=== PATIENT | male | born 1945 | race Caucasian/White ===

== ENCOUNTER 2017-04-12 16:57 | Inpatient (IN) | payer MEDICARE ==
[~2017-04-12] VITALS: Ht 182.9 cm; Wt 87.1 kg
[2017-04-12 17:14] VITALS: BP 109/68; PULSE 71; RESP 16; TEMP 97.9; O2SAT 96
[2017-04-12] MEDS ORDERED: WARF-23 PO (17:25)
--- NOTE | 2017-04-12 17:31 | PD ---
HPI Chief Complaint: Musculoskeletal Complaint Time Seen by Provider: 17:22 Travel History International Travel<30 days: No Contact w/Intl Traveler<30days: No Traveled to known affect area: No History of Present Illness HPI 71-year-old male presents to the emergency department with his daughter for evaluation after he fell hitting his head. His daughter states they were in the bathroom trying to change his undergarments when he slipped and fell hitting his head. He is on anticoagulant, but she is not sure which one and what for. The patient is pleasantly confused and patient's daughter states this is his baseline. He has had no altered mental status since the fall. No vomiting. The patient reports a mild headache without radiation. No neck pain or back pain. No chest pain or abdominal pain. No nausea, vomiting, diarrhea. He has been ambulatory without difficulty since the fall. He has no other complaints at this time. Moderate severity. No exacerbating or alleviating factors. PFSH Past Medical History Hx Anticoagulant Therapy: Yes COPD: Yes Respiratory: Yes (COPD) Influenza Vaccination: Yes Social History Alcohol Use: No Tobacco Use: No Substance Use: No Allergies-Medications (Allergen,Severity, Reaction): Coded Allergies: No Known Allergies (Verified Allergy, Unknown, 04/12/17) Reported Meds & Prescriptions Reported Meds & Active Scripts Active Reported Warfarin 5 Mg Tab 5 Mg PO DAILY Review of Systems Except as stated in HPI: all other systems reviewed are Neg Physical Exam Narrative GENERAL: Well-nourished, well-developed male patient, afebrile. Patient is pleasantly confused. SKIN: Focused skin assessment warm/dry. HEAD: Normocephalic. Atraumatic. ENT: Mucosa pink and moist. No erythema or exudates. No uvular edema. No uvular , palatal, or tonsillar deviation. Airway patent. Nasal turbinates appear normal without nasal blood, purulent drainage or septal hematoma. Bilateral tympanic membranes are clear without erythema or perforation. EYES: No scleral icterus. No injection or drainage. NECK: Supple, trachea midline. No JVD or lymphadenopathy. CARDIOVASCULAR: Regular rate and rhythm without murmurs, gallops, or rubs. RESPIRATORY: Breath sounds equal bilaterally. No accessory muscle use. Lungs sounds are clear to auscultation. GASTROINTESTINAL: Abdomen soft, non-tender, nondistended. MUSCULOSKELETAL: No cyanosis, or edema. BACK: Nontender without obvious deformity. No CVA tenderness. No midline spinal tenderness. Data Data Last Documented VS Vital Signs Date Time Temp Pulse Resp B/P (MAP) Pulse Ox O2 Delivery O2 Flow Rate FiO2 04/12/17 17:14 97.9 71 16 109/68 (82) [address] Brain W/O Iv Contrast(Rout) (04/12/17 ) Ct Cerv Spine W/O Contrast (04/12/17 ) MDM Medical Decision Making Medical Screen Exam Complete: Yes Emergency Medical Condition: Yes Medical Record Reviewed: Yes Differential Diagnosis Closed head injury versus intracranial hemorrhage versus cervical strain versus cervical fracture Narrative Course 71-year-old male presents to the emergency department his daughter for evaluation after he slipped and fell and hit his head. Patient is presently confused, but patient's daughter states that this is his baseline. He has no complaints other than a mild headache. CT of the brain and cervical spine are ordered and pending. community planning technician called and stated the patient had a bleed with a midline shift. The patient transferred to medical bed and Dr. Stone resumed care and disposition of patient. Giovanna Roque Apr 12, 2017 17:31
--- NOTE | 2017-04-12 17:54 | RADRPT ---
EXAM DATE/TIME: 04/12/2017 17:36 [facility] COMPARISON: No previous studies available for comparison. INDICATIONS : Fell in shower and hit head. RADIATION DOSE: 62.55 CTDIvol (mGy) MEDICAL HISTORY : Chronic obstructive pulmonary disease. Anticoagulant therapy. SURGICAL HISTORY : None. ENCOUNTER: Initial ACUITY: 1 day PAIN SCALE: 5/10 LOCATION: cranial TECHNIQUE: Multiple contiguous axial images were obtained of the head. Using automated exposure control and adj ustment of the mA and/or kV according to patient size, radiation dose was kept as low as reasonably a chievable to obtain optimal diagnostic quality images. DICOM format image data is available electro nically for review and comparison. FINDINGS: Bilateral acute subdural hematomas are present and on the left side extends from frontal to post erior parietal region maximum thickness of 1.8 cm and on the right side is mainly in the frontal marlys on maximum thickness of 7 mm. There is also subdural hematoma along the falx anteriorly. Intraparench ymal hemorrhage is present in the left anterior temporal lobe and parts of the frontal lobe. There is significant mass effect subfalcine herniation from left to right by approximately 1 cm. There is sli ght mass effect on the perimesencephalic cisterns, however there is no downward transtentorial hernia tion at this time. No definite fracture is seen for technique. CONCLUSION: Bilateral subdural hematomas in addition to parafalcine subdural hematoma, left front al and temporal lobe intraparenchymal hemorrhages and subfalcine herniation from [id number]. Maria Guadalupe Alvarado MD on April 12, 2017 at 17:48 Board Certified Radiologist. This report was verified electronically.
--- NOTE | 2017-04-12 17:59 | PD ---
Physical Exam Narrative GENERAL: SKIN: Warm and dry. HEAD: Atraumatic. Normocephalic. EYES: Pupils equal and round. No scleral icterus. No injection or drainage. ENT: No nasal bleeding or discharge. Mucous membranes pink and moist. NECK: Trachea midline. No JVD. CARDIOVASCULAR: Regular rate and rhythm. RESPIRATORY: No accessory muscle use. Clear to auscultation. Breath sounds equal bilaterally. GASTROINTESTINAL: Abdomen soft, non-tender, nondistended. Hepatic and splenic margins not palpable. MUSCULOSKELETAL: Extremities without clubbing, cyanosis, or edema. No obvious deformities. NEUROLOGICAL: Awake and alert, PLEASANTLY CONFUSED BUT FOLLOWS COMMANDS WELL.... No obvious cranial nerve deficits. Motor grossly within normal limits. Five out of 5 muscle strength in the arms and legs. Normal speech. PSYCHIATRIC: Appropriate mood and affect; insight and judgment normal. Data Data Last Documented VS Vital Signs Date Time Temp Pulse Resp B/P (MAP) Pulse Ox O2 Delivery O2 Flow Rate FiO2 04/12/17 18:05 59 18 136/69 (91) 98 Room Air 04/12/17 17:[address] Brain W/O Iv Contrast(Rout) (04/12/17 ) Ct Cerv Spine W/O Contrast (04/12/17 ) Complete Blood Count With Diff (04/12/17 18:00) Comprehensive Metabolic Panel (04/12/17 18:00) Prothrombin Time / Inr (Pt) (04/12/17 18:00) Act Partial Throm Time (Ptt) (04/12/17 18:00) Lipase (04/12/17 18:00) Iv Access Insert/Monitor (04/12/17 18:00) Ecg Monitoring (04/12/17 18:00) Oximetry (04/12/17 18:00) ^ Lab Follow Up (04/12/17 18:00) Prothrombin Complex Conc Inj (Kcentra In (04/12/17 19:00) Levetiracetam Inj (Keppra Inj) (04/12/17 18:30) Phytonadione Inj (Vitamin K Inj) (04/12/17 18:30) Labs Laboratory Tests Test 04/12/17 18:00 White Blood Count 5.6 TH/MM3 Red Blood Count 4.60 MIL/MM3 Hemoglobin 13.4 GM/DL Hematocrit 40.2 % Mean Corpuscular Volume 87.4 FL Mean Corpuscular Hemoglobin 29.1 PG Mean Corpuscular Hemoglobin Concent 33.4 % Red Cell Distribution Width 14.0 % Platelet Count 245 TH/MM3 Mean Platelet Volume 7.1 FL Neutrophils (%) (Auto) 77.0 % Lymphocytes (%) (Auto) 13.8 % Monocytes (%) (Auto) 6.4 % Eosinophils (%) (Auto) 2.2 % Basophils (%) (Auto) 0.6 % Neutrophils # (Auto) 4.3 TH/MM3 Lymphocytes # (Auto) 0.8 TH/MM3 Monocytes # (Auto) 0.4 TH/MM3 Eosinophils # (Auto) 0.1 TH/MM3 Basophils # (Auto) 0.0 TH/MM3 CBC Comment DIFF FINAL Differential Comment Prothrombin Time 10.8 SEC Prothromb Time International Ratio 1.1 RATIO Activated Partial Thromboplast Time 26.8 SEC Blood Urea Nitrogen 20 MG/DL Creatinine 1.00 MG/DL Random Glucose 215 MG/DL Total Protein 6.9 GM/DL Albumin 3.6 GM/DL Calcium Level 8.9 MG/DL Alkaline Phosphatase 68 U/L Aspartate Amino Transf (AST/SGOT) 14 U/L Alanine Aminotransferase (ALT/SGPT) 15 U/L Total Bilirubin 0.6 MG/DL Sodium Level 137 MEQ/L Potassium Level 3.9 MEQ/L Chloride Level 101 MEQ/L Carbon Dioxide Level 30.5 MEQ/L Anion Gap 6 MEQ/L Estimat Glomerular Filtration Rate 74 ML/MIN Lipase 161 U/L [facility] Medical Record Reviewed: Yes Supervised Visit with EVER: Yes Differential Diagnosis ICH V SAH V SDH Narrative Course CT SHOWED: : Bilateral subdural hematomas in addition to parafalcine subdural hematoma, left frontal and temporal lobe intraparenchymal hemorrhages and subfalcine herniation from [id number]....PATIENT IS CONFUSED AND UNABLE TO TRUST HIS HISTORY, HE MENTIONED COUMADIN INITIALLY BUT OF 181 NO DEFINITIVE ANSWER FROM FAMILY AT BEDSIDE WHO IS COMMUNICATING WITH FAMILY TO ASSESS IF PT IS ANTICOAGULATED. Critical Care Narrative CRITICAL CARE NOTE: With evaluation of the patient, labs, EKG, receipt of radiologic studies, administration of medications, reevaluation the patient and discussion of the patient with the admitting physicians, the total critical care time was [30] minutes. Time to perform other separately billable procedures was not included in the critical care time. Physician Communication Physician Communication DR SOLARES CALLED AT 1800, OF 1811 NO CALLBACK, CALLED AGAIN...CALL RETURNED AND COMPLETED 1829 WHERE RECC TO TRANSFER TO [facility], TO [facility] DRIVER, ALEISHA SOTELO, AND TO FIND OUT IF ANTICOAGULATED WITH ANYTHING REVERSIBLE....DR SOLARES BELIEVES CT FINDINGS ARE MORE SUBACUTE ON LEFT WHICH IS THE LARGER CLOT, AND RIGHT IS MORE ACUTE.. Diagnosis Primary Impression: SUBDURAL HEMATOMAS (MULTIPLE) Admitting Information Admitting Physician Requests: Admit Ryder Stone MD Apr 12, 2017 17:59
[2017-04-12] MEDS ORDERED: PHYTONADIONE INJ 10 MG in SODIUM CHLORIDE 0.9% INJ 50 ML IV ONE ×2 (18:00→18:30)
[2017-04-12 18:05] VITALS: BP 136/69; PULSE 59; RESP 18; O2SAT 98
--- NOTE | 2017-04-12 18:07 | RADRPT ---
EXAM DATE/TIME: 04/12/2017 17:36 [facility] COMPARISON: No previous studies available for comparison. INDICATIONS : Fell in shower and hit head. RADIATION DOSE: 26.76 CTDIvol (mGy) MEDICAL HISTORY : Chronic obstructive pulmonary disease. Anticoagulant therapy. SURGICAL HISTORY : None. ENCOUNTER: Initial ACUITY: 1 day PAIN SCALE: 5/10 LOCATION: neck TECHNIQUE: Volumetric scanning of the cervical spine was performed. Multiplanar reconstructions in the sagittal, coronal and oblique axial planes were performed. Using automated exposure control and adjustment o f the mA and/or kV according to patient size, radiation dose was kept as low as reasonably achievable to obtain optimal diagnostic quality images. DICOM format image data is available electronically f or review and comparison. FINDINGS: No significant subluxation or soft tissue swelling is seen. No definite fracture is seen for techniqu e. C2-C3: No appreciable compromised to the thecal sac, exiting nerve roots are seen. The neural maude latia are patent bilaterally. No appreciable thecal sac stenosis is seen. C3-C4: No appreciable compromised to the thecal sac, exiting nerve roots are seen. The neural maude latia are patent bilaterally. No appreciable thecal sac stenosis is seen. C4-C5: No appreciable compromised to the thecal sac, exiting nerve roots are seen. The neural maude latia are patent bilaterally. No appreciable thecal sac stenosis is seen. Slight bulging disc and hype rtrophic changes are seen with indentation on the thecal sac and no significant compromise to the the juan sac or the exiting nerve roots. C5-C6: Slight degenerative changes are seen within the disc space and facets. Slight bulging disc and hypertrophic changes are seen with indentation on the thecal sac and no significant compromise to th e thecal sac or the exiting nerve roots. C6-C7: Moderate degenerative changes are seen within the disc space and facets. There is bulging disc and hypertrophic change protruding into the left lateral recess without any significant compromise t o the exiting nerve roots. Slight bulging disc and hypertrophic changes are seen with indentation on the thecal sac and no significant compromise to the thecal sac or the exiting nerve roots. C7-T1: No appreciable compromised to the thecal sac, exiting nerve roots are seen. The neural maude latia are patent bilaterally. No appreciable thecal sac stenosis is seen CONCLUSION: Degenerative spondylosis without any significant compromise to the thecal sac or the exi ting nerve roots. Maria Guadalupe Alvarado MD on April 12, 2017 at 18:01 Board Certified Radiologist. This report was verified electronically.
[2017-04-12 18:11] LABS: AUTOMATED NEUTROPHIL # 4.3 TH/MM3 (1.8-7.7); BASOPHIL % 0.6 % (0.0-2.0); EOSINOPHIL # 0.1 TH/MM3 (0-0.4); EOSINOPHIL % 2.2 % (0.0-4.0); HEMATOCRIT 40.2 % (39.0-51.0); HEMOGLOBIN 13.4 GM/DL (13.0-17.0); LYMPH % 13.8 % (9.0-44.0); LYMPHOCYTE # 0.8 TH/MM3 (1.0-4.8); MEAN CELL VOLUME 87.4 FL (80.0-100.0); MEAN CORPUSCULAR HEMOGLOBIN 29.1 PG (27.0-34.0); MEAN CORPUSCULAR HGB CONC 33.4 % (32.0-36.0); MEAN PLATELET VOLUME 7.1 FL (7.0-11.0); MONO % 6.4 % (0.0-8.0); MONOCYTE # 0.4 TH/MM3 (0-0.9); PLATELET COUNT 245 TH/MM3 (150-450); WHITE BLOOD COUNT 5.6 TH/MM3 (4.0-11.0)
[2017-04-12] MEDS ORDERED: ASPI-183 PO (18:15)
[2017-04-12 18:19] LABS: CHLORIDE 101 MEQ/L (98-107); SODIUM (NA) 137 MEQ/L (136-145)
[2017-04-12 18:22] LABS: CALCIUM 8.9 MG/DL (8.5-10.1)
[2017-04-12 18:23] LABS: ALBUMIN 3.6 GM/DL (3.4-5.0); BICARBONATE 30.5 MEQ/L (21.0-32.0); BLOOD UREA NITROGEN 20 MG/DL (7-18); GLUCOSE,RANDOM 215 MG/DL (74-106); LIPASE 161 U/L (73-393)
[2017-04-12 18:24] LABS: INTERNATIONAL NORMALIZED RATIO 1.1 RATIO; PROTHROMBIN TIME - PATIENT 10.8 SEC (9.8-11.6)
[2017-04-12 18:26] LABS: ALT (GPT) 15 U/L (12-78); AST (GOT) 14 U/L (15-37); GLOMERULAR FILTRATION RATE 74 ML/MIN (>89)
[2017-04-12 18:27] LABS: TOTAL BILIRUBIN ADULT 0.6 MG/DL (0.2-1.0); TOTAL PROTEIN 6.9 GM/DL (6.4-8.2)
[2017-04-12 18:28] LABS: ALKALINE PHOSPHATASE 68 U/L (45-117)
[2017-04-12] MEDS ORDERED: NS + KCL 20 MEQ INJ 1,000 ML IV SCH (18:30)
[2017-04-12] MEDS ORDERED: ONDANSETRON HCL 4 MG/2 ML VIAL IV PUSH PRN ×2 (18:30→20:30)
[2017-04-12] MEDS ORDERED: levETIRAcetam INJ 500 MG in SODIUM CHLORIDE 0.9% INJ 100 ML IV ONE (18:30)
[2017-04-12] MEDS ORDERED: PROTHROMBIN COMPLEX CONC INJ 2,000 UNITS in SYRINGE/BAG 1 EA IV ONE (19:00)
[2017-04-12] MEDS ORDERED: DONE10TA7 PO (19:27)
[2017-04-12] MEDS ORDERED: ZOLO100T PO (19:27)
[2017-04-12] MEDS ORDERED: PERSANTINE PO (19:29)
[2017-04-12] MEDS ORDERED: CODE30TA PO (19:29)
[2017-04-12] MEDS ORDERED: TROS60CA2 PO (19:29)
[2017-04-12] MEDS ORDERED: VENTAER INH (19:29)
[2017-04-12] MEDS ORDERED: PRAV40TA2 PO (19:29)
[2017-04-12] MEDS ORDERED: METF500 PO (19:31)
[2017-04-12] MEDS ORDERED: VALS1TAB64 PO (19:31)
[2017-04-12] MEDS ORDERED: TRAZ100T10 PO (19:31)
[2017-04-12] MEDS ORDERED: GABA400C5 PO (19:31)
[2017-04-12 19:32] VITALS: BP 125/70; PULSE 61; RESP 18; O2SAT 98
[2017-04-12 20:00] VITALS: BP 105/84; PULSE 58; PULSE 64; RESP 17; TEMP 97.9; O2SAT 95
[2017-04-12] MEDS ORDERED: CHLORHEXIDINE GLUCONATE 2 % 1 PACK (2 CLOTHS) TOP PRN (20:30)
[2017-04-12] MEDS ORDERED: SODIUM CHLORIDE 0.9% FLUSH 10 ML FLUSH IV FLUSH PRN (20:30)
[2017-04-12] MEDS ORDERED: BISACODYL 10 MG SUPP RECTAL PRN (20:30)
[2017-04-12] MEDS ORDERED: MISCELLANEOUS NURSING INFORMATION XX SCH (20:30)
[2017-04-12] MEDS ORDERED: SENNOSIDES 8.6 MG TAB PO PRN (20:30)
[2017-04-12] MEDS ORDERED: LACTULOSE SYRUP 20 GM/30 ML CUP PO PRN (20:30)
[2017-04-12] MEDS ORDERED: RESP: ALBUTEROL 2.5 MG/IPRATROPIUM 0.5 MG NEB (PRN) INH (20:30)
[2017-04-12] MEDS ORDERED: MAGNESIUM HYDROXIDE SUSP 30 ML CUP PO PRN (20:30)
[2017-04-12] MEDS: DOCUSATE SODIUM 100 MG CAP PO SCH (20:43)
[2017-04-12] MEDS: levETIRAcetam 500 MG TAB PO SCH (20:43)
[2017-04-12] MEDS: DONEPEZIL HCL 5 MG TAB PO SCH (20:43)
[2017-04-12] MEDS: FAMOTIDINE 20 MG TAB PO SCH (20:43)
[2017-04-12] MEDS: traZODone HCL 100 MG TAB PO SCH (20:43)
--- NOTE | 2017-04-12 20:48 | HHI.HP ---
HPI Service Critical Care Medicine Primary Care Physician Non-Staff Admission Diagnosis SUBDURAL HEMATOMAS (MULTIPLE) Diagnosis: Travel History International Travel<30 Days: No Contact w/Intl Traveler <30 Da: No Traveled to Known Affected Are: No History of Present Illness 71-year-old male presents for evaluation after he fell hitting his head. Per family report they were in the bathroom trying to change his undergarments when he slipped and fell hitting his head. He is not on anticoagulant. The patient is pleasantly confused and patient's daughter states this is his baseline. He has had no altered mental status since the fall. No vomiting. The patient reports a mild headache without radiation. No neck pain or back pain. He has been ambulatory without difficulty since the fall. The CT head performed in the emergency department shows bilateral subdural hematomas in addition to parafalcine subdural hematoma, left frontal and temporal lobe intraparenchymal hemorrhages and subfalcine herniation from [id number]. Review of Systems ROS Unable to obtain patient is baseline confused Past Family Social History Allergies: Coded Allergies: No Known Allergies (Verified Allergy, Unknown, 04/12/17) Past Medical History COPD Past Surgical History Unable to obtain Reported Medications Reported Meds & Active Scripts Active Reported Gabapentin 400 Mg Cap 400 Cap PO TID Glucophage (Metformin HCl) 500 Mg Tab 500 Mg PO DAILY With a meal Valsartan 80 Mg Tab 80 Mg PO DAILY Trazodone (Trazodone HCl) 100 Mg Tablet 100 Mg PO HS Trospium ER 60 Mg Cap 20 Mg PO BID Pravastatin 40 Mg Tab 40 Mg PO DAILY [persantine] 25 Mg PO DAILY Ventolin Hfa 18 GM Inh (Albuterol Sulfate) 90 Mcg/Act Aer 2 Puff INH Q4-6H PRN Codeine Sulfate 30 Mg Tab 30 Mg PO Q6H PRN Zoloft (Sertraline HCl) 100 Mg Tab 150 Mg PO DAILY Donepezil 10 Mg Tab 10 Mg PO HS Active Ordered Medications Current Medications Medications (Trade) Dose Ordered Sig/Ashli Route PRN Reason Start Time Stop Time Status Last Admin Dose Admin Potassium Chloride/Sodium Chloride 1,000 ml @ 84 mls/hr [id number] IV 04/12/17 18:30 Docusate Sodium (Colace) 100 mg BID PO 04/12/17 21:00 Ondansetron HCl (Zofran Inj) 4 mg Q6H PRN IV PUSH NAUSEA OR VOMITING 04/12/17 18:30 Famotidine (Pepcid) 20 mg BID PO 04/12/17 21:00 Levetriacetam (Keppra) 500 mg Q12HR PO 04/12/17 21:00 Donepezil HCl (Aricept) 10 mg HS PO 04/12/17 21:00 Gabapentin (Neurontin) 400 mg TID PO 04/13/17 09:00 Pravastatin Sodium (Pravachol) 40 mg DAILY PO 04/13/17 09:00 Sertraline HCl (Zoloft) 150 mg DAILY PO 04/13/17 09:00 Valsartan (Diovan) 80 mg DAILY PO 04/13/17 09:00 Non-Formulary Medication 100 mg HS PO 04/12/17 21:00 UNV Non-Formulary Medication 20 mg BID PO 04/12/17 21:00 UNV Family History Unobtainable Social History Unobtainable Physical Exam Vital Signs Vital Signs Date Time Temp Pulse Resp B/P (MAP) Pulse Ox O2 Delivery O2 Flow Rate FiO2 04/12/17 19:36 04/12/17 19:32 61 18 125/70 (88) 98 04/12/17 18:05 59 18 136/69 (91) 98 Room Air 04/12/17 17:14 97.9 71 16 109/68 (82) 96 Physical Exam GENERAL: Elderly gentleman pleasantly confused awake and alert SKIN: Warm and dry. HEAD: Atraumatic. Normocephalic. EYES: Pupils equal and round. No scleral icterus. No injection or drainage. ENT: No nasal bleeding or discharge. Mucous membranes pink and moist. NECK: Trachea midline. No JVD. CARDIOVASCULAR: Regular rate and rhythm. RESPIRATORY: No accessory muscle use. Clear to auscultation. Breath sounds equal bilaterally. GASTROINTESTINAL: Abdomen soft, non-tender, nondistended. Hepatic and splenic margins not palpable. MUSCULOSKELETAL: Extremities without clubbing, cyanosis, or edema. No obvious deformities. NEUROLOGICAL: Awake and alert, PLEASANTLY CONFUSED BUT FOLLOWS COMMANDS WELL.... No obvious cranial nerve deficits. Motor grossly within normal limits. Five out of 5 muscle strength in the arms and legs. Normal speech. Laboratory Laboratory Tests Test 04/12/17 18:00 White Blood Count 5.6 Red Blood Count 4.60 Hemoglobin 13.4 Hematocrit 40.2 Mean Corpuscular Volume 87.4 Mean Corpuscular Hemoglobin 29.1 Mean Corpuscular Hemoglobin Concent 33.4 Red Cell Distribution Width 14.0 Platelet Count 245 Mean Platelet Volume 7.1 Neutrophils (%) (Auto) 77.0 Lymphocytes (%) (Auto) 13.8 Monocytes (%) (Auto) 6.4 Eosinophils (%) (Auto) 2.2 Basophils (%) (Auto) 0.6 Neutrophils # (Auto) 4.3 Lymphocytes # (Auto) 0.8 Monocytes # (Auto) 0.4 Eosinophils # (Auto) 0.1 Basophils # (Auto) 0.0 CBC Comment DIFF FINAL Differential Comment Prothrombin Time 10.8 Prothromb Time International Ratio 1.1 Activated Partial Thromboplast Time 26.8 Blood Urea Nitrogen 20 Creatinine 1.00 Random Glucose 215 Total Protein 6.9 Albumin 3.6 Calcium Level 8.9 Alkaline Phosphatase 68 Aspartate Amino Transf (AST/SGOT) 14 Alanine Aminotransferase (ALT/SGPT) 15 Total Bilirubin 0.6 Sodium Level 137 Potassium Level 3.9 Chloride Level 101 Carbon Dioxide Level 30.5 Anion Gap 6 Estimat Glomerular Filtration Rate 74 Lipase 161 Result Diagram: 04/12/17 1800 04/12/17 1800 Imaging Last [address] 04/12/17 0000 Signed Impressions: Service Date/Time: Wednesday, April 12, 2017 17:36 - CONCLUSION: Bilateral subdural hematomas in addition to parafalcine subdural hematoma, left frontal and temporal lobe intraparenchymal hemorrhages and subfalcine herniation from [id number]. Maria Guadalupe Alvarado MD Cervical Spine CT 04/12/17 0000 Signed Impressions: Service Date/Time: Wednesday, April 12, 2017 17:36 - CONCLUSION: Degenerative spondylosis without any significant compromise to the thecal sac or the exiting nerve roots. Maria Guadalupe Alvarado MD Septic Shock Reassessment Septic shock perfusion: reassessment completed Caprini VTE Risk Assessment Caprini VTE Risk Assessment: Mod/High Risk (score >= 2) VTE Pharm Contraindication: Hemorrhage Caprini Risk Assessment Model Point Value = 1 Point Value = 2 Point Value = 3 Point Value = 5 Age 41-60 Minor surgery BMI > 25 kg/m2 Swollen legs Varicose veins or History of unexplained or recurrent spontaneous Oral contraceptives or hormone replacement Sepsis (< 1 month) Serious lung disease, including pneumonia (< 1 month) Abnormal pulmonary function Acute myocardial infarction Congestive heart failure (< 1 month) History of inflammatory bowel disease Medical patient at bed rest Age 61-74 Arthroscopic surgery Major open surgery (> 45 min) Laparoscopic surgery (> 45 min) Malignancy Confined to bed (> 72 hours) Immobilizing plaster cast Central venous access Age >= 75 History of VTE Family history of VTE Factor V Leiden Prothrombin [id number] Lupus anticoagulant Anticardiolipin antibodies Elevated serum homocysteine Heparin-induced thrombocytopenia Other congenital or acquired thrombophilia Stroke (< 1 month) Elective arthroplasty Hip, pelvis, or leg fracture Acute spinal cord injury (< 1 month) Prophylaxis Regimen Total Risk Factor Score Risk Level Prophylaxis Regimen 0-1 Low Early ambulation 2 Moderate Order ONE of the following: *Sequential Compression Device (SCD) *Heparin 5000 units SQ BID 3-4 Higher Order ONE of the following medications: *Heparin 5000 units SQ TID *Enoxaparin/Lovenox 40 mg SQ daily (WT < 150 kg, CrCl > 30 mL/min) *Enoxaparin/Lovenox 30 mg SQ daily (WT < 150 kg, CrCl > 10-29 mL/min) *Enoxaparin/Lovenox 30 mg SQ BID (WT < 150 kg, CrCl > 30 mL/min) AND/OR *Sequential Compression Device (SCD) 5 or more Highest Order ONE of the following medications: *Heparin 5000 units SQ TID (Preferred with Epidurals) *Enoxaparin/Lovenox 40 mg SQ daily (WT < 150 kg, CrCl > 30 mL/min) *Enoxaparin/Lovenox 30 mg SQ daily (WT < 150 kg, CrCl > 10-29 mL/min) *Enoxaparin/Lovenox 30 mg SQ BID (WT < 150 kg, CrCl > 30 mL/min) AND *Sequential Compression Device (SCD) Assessment and Plan Assessment and Plan Subdural hematoma - Neurosurgical consultation - Admit to ICU - Neuro checks per unit protocol - Repeat CT head a.m. - Seizure prophylaxis with Keppra - Further management per neurosurgeon COPD - No exacerbation - No steroids indicated - DuoNeb scheduled and when necessary Dementia - Continue Aricept Hypertension - Valsartan 80 Mg Tab 80 Mg PO DAILY Psychosis - Trazodone - Zoloft Diabetes mellitus - Hold metformin while in the ICU - Insulin sliding scale DVT GI prophylaxis - Teds SCDs - No pharmacological DVT prophylaxis due to subdural hematoma - Pepcid Critical Care: The total critical care time was 35 minutes. Time to perform other separately billable procedures was not included in the critical care time. Corby Romo MD Apr 12, 2017 8:48 pm
[2017-04-12] MEDS: SODIUM CHLOR 0.9% 1000 ML INJ 1,000 ML IV SCH (21:00)
[2017-04-12] MEDS: FAMOTIDINE 20 MG/2 ML VIAL IV PUSH SCH (21:00)
[2017-04-12] MEDS: DOCUSATE SODIUM 50 MG/SENNA 8.6 MG TAB PO SCH (21:00)
[2017-04-12] MEDS: SODIUM CHLORIDE 0.9% FLUSH 10 ML FLUSH IV FLUSH SCH (21:00)
[2017-04-12] MEDS: RESP: ALBUTEROL 2.5 MG/IPRATROPIUM 0.5 MG NEB (SCH) INH (21:40)
[2017-04-12 21:43] VITALS: O2SAT 95
[2017-04-12] MEDS ORDERED: DEXTROSE 50% IN WATER 50 ML VIAL(D50) IV PUSH PRN (22:00)
[2017-04-12] MEDS ORDERED: GLUCAGON 1 MG/ML VIAL OTHER PRN (22:00)
--- NOTE | 2017-04-12 22:36 | PD.CONS ---
[facility] Service Neurosurgery Consult Requested By Dr. Romo Reason for Consult Bilateral subdural hematoma Primary Care Physician Non-Staff History of Present Illness Mr. Hope is a 71-year-old male who presented to the emergency room today after he fell at home in the presence of his daughter. She states that he lost his balance while trying to put some close on, and fell and struck his head. There was no loss of consciousness. No seizure activity or nausea or emesis reported. The patient has baseline dementia and confusion, but no definite overall change in his mentation after the fall earlier today, according to his daughter, who he lives with. He presently has no complaint of headache. He does have some chronic neck and back pain. Review of Systems Review of systems cannot be accurately obtained from the patient. According to his daughter, he has had some increased gait unsteadiness over the past few weeks. Also a general worsening of his dementia over the past few months. He has COPD and occasionally has shortness of breath. Past Family Social History Allergies: Coded Allergies: No Known Allergies (Verified Allergy, Unknown, 04/12/17) Past Medical History Diabetes Cardiac murmur COPD Dementia Chronic pain Depression Past Surgical History No major surgeries according to his daughter Reported Medications Reported Meds & Active Scripts Active Reported Gabapentin 400 Mg Cap 400 Cap PO TID Glucophage (Metformin HCl) 500 Mg Tab 500 Mg PO DAILY With a meal Valsartan 80 Mg Tab 80 Mg PO DAILY Trazodone (Trazodone HCl) 100 Mg Tablet 100 Mg PO HS Trospium ER 60 Mg Cap 20 Mg PO BID Pravastatin 40 Mg Tab 40 Mg PO DAILY [persantine] 25 Mg PO DAILY Ventolin Hfa 18 GM Inh (Albuterol Sulfate) 90 Mcg/Act Aer 2 Puff INH Q4-6H PRN Codeine Sulfate 30 Mg Tab 30 Mg PO Q6H PRN Zoloft (Sertraline HCl) 100 Mg Tab 150 Mg PO DAILY Donepezil 10 Mg Tab 10 Mg PO HS Family History Positive for cancer in his father and Alzheimer's in his mother. Social History He stopped smoking cigarettes approximately 25 years ago. No alcohol use He lives with his daughter Physical Exam Vital Signs Vital Signs Date Time Temp Pulse Resp B/P (MAP) Pulse Ox O2 Delivery O2 Flow Rate FiO2 04/12/17 21:43 95 21 04/12/17 19:36 04/12/17 19:32 61 18 125/70 (88) 98 04/12/17 18:05 59 18 136/69 (91) 98 Room Air 04/12/17 17:14 97.9 71 16 109/68 (82) 96 Physical Exam GENERAL: Somewhat thin elderly gentleman in no apparent distress. SKIN: Scattered abrasions and contusions over the upper greater than lower extremities. HEAD: Atraumatic. Normocephalic. No temporal or scalp tenderness. EYES: Sclerae are clear and nonicteric ENT: No facial edema or ecchymosis. No periorbital edema. No CSF otorrhea or rhinorrhea. No palpable facial fracture or deformity. NECK: Trachea midline. Mild cervical spine tenderness. Good cervical range of motion without significant pain CARDIOVASCULAR: Regular rate and rhythm. 3/6 systolic murmur. RESPIRATORY: Mild coarse upper airway sounds. No wheezing. GASTROINTESTINAL: Abdomen soft, non-tender, nondistended. No hepato-splenomegaly , or palpable masses. No guarding. MUSCULOSKELETAL: Extremities without cyanosis, or edema. No joint tenderness, or edema noted. No calf tenderness. Dorsalis pedis pulses 2+ bilateral NEUROLOGICAL: Moderate lethargy Cannot tell me the month or where he is Speech is slow. We will say only 1 or 2 words in response to some questions Follow simple commands intermittent when stimulated Answers only a few questions with 1 or 2 words Diminished judgment and insight Recent and remote memory are difficult to accurately assess due to his decreased mental status No evidence of anxiety or depression Pupils are equal and reactive to accommodation. Extra-ocular movements, visual dutton to confrontation, facial sensorimotor, tongue, palate, sternocleidomastoid testing, hearing to finger rub testing, and bilateral shoulder shrug are all intact. Sensation is intact to light touch in all extremities Strength normal major flexion and extension groups all extremities except for possible mild weakness in the left lower extremity. He will hold his right leg off the bed for a few seconds, but will not completely lift his left leg off the bed. Elizabeth's absent bilaterally No ankle clonus Plantar responses absent bilateral Fine motor movements intact upper extremities Laboratory Laboratory Tests Test 04/12/17 18:00 04/12/17 20:16 04/12/17 20:51 White Blood Count 5.6 Red Blood Count 4.60 Hemoglobin 13.4 Hematocrit 40.2 Mean Corpuscular Volume 87.4 Mean Corpuscular Hemoglobin 29.1 Mean Corpuscular Hemoglobin Concent 33.4 Red Cell Distribution Width 14.0 Platelet Count 245 Mean Platelet Volume 7.1 Neutrophils (%) (Auto) 77.0 Lymphocytes (%) (Auto) 13.8 Monocytes (%) (Auto) 6.4 Eosinophils (%) (Auto) 2.2 Basophils (%) (Auto) 0.6 Neutrophils # (Auto) 4.3 Lymphocytes # (Auto) 0.8 Monocytes # (Auto) 0.4 Eosinophils # (Auto) 0.1 Basophils # (Auto) 0.0 CBC Comment DIFF FINAL Differential Comment Prothrombin Time 10.8 Prothromb Time International Ratio 1.1 Activated Partial Thromboplast Time 26.8 Blood Urea Nitrogen 20 Creatinine 1.00 Random Glucose 215 Total Protein 6.9 Albumin 3.6 Calcium Level 8.9 Alkaline Phosphatase 68 Aspartate Amino Transf (AST/SGOT) 14 Alanine Aminotransferase (ALT/SGPT) 15 Total Bilirubin 0.6 Sodium Level 137 Potassium Level 3.9 Chloride Level 101 Carbon Dioxide Level 30.5 Anion Gap 6 Estimat Glomerular Filtration Rate 74 Lipase 161 Troponin I LESS THAN 0.02 Result Diagram: 04/12/17 1800 04/12/17 1800 Imaging 04/12/2017 CT scan head and cervical spine images reviewed by the undersigned. There appears to be relatively focal acute right frontal subdural hematoma without significant mass effect. There appears to be subacute on chronic left hemisphere subdural hematoma with partial effacement of the left lateral ventricle and approximately 10 mm [id number] midline shift. No definite parenchymal hemorrhage noted. No skull fracture or pneumocephalus noted. Head CT 04/12/17 0000 Signed Impressions: Service Date/Time: Wednesday, April 12, 2017 17:36 - CONCLUSION: Bilateral subdural hematomas in addition to parafalcine subdural hematoma, left frontal and temporal lobe intraparenchymal hemorrhages and subfalcine herniation from [id number]. Maria Guadalupe Alvarado MD Cervical Spine CT 04/12/17 0000 Signed Impressions: Service Date/Time: Wednesday, April 12, 2017 17:36 - CONCLUSION: Degenerative spondylosis without any significant compromise to the thecal sac or the exiting nerve roots. Maria Guadalupe Alvarado MD Assessment and Plan Assessment and Plan Impression: 1. Acute focal right frontal and larger more diffuse subacute on chronic left hemisphere subdural hematomas. 2. Diabetes 3. COPD 4. Cardiac murmur 5. Dementia 6. History of depression 7. Chronic pain Recommendations: 1. CT scan findings were discussed at length with the patient's 2 daughters on the telephone this evening. Since he has been on aspirin, risk of recurrent postoperative hemorrhage is increased. He will need surgical evacuation of the left hemisphere subdural hematoma. A follow-up CT scan will be obtained in the morning to make certain that there is not early expansion of the right frontal subdural hematoma. He will proceed with surgical intervention depending on follow-up CT scan and his clinical course. If he is neurologically stable, it may be preferable to delay the surgery to diminish the effects of aspirin on postoperative bleeding. 2. Metformin held at present. On insulin sliding scale 3. Continuing respiratory treatments. Ventimask. 4. Need for additional preoperative cardiac evaluation deferred to cigar packer. 5. Dementia-continue Aricept. 6. Continuing his present antidepressant medication 7. Will cautiously continue pain medications as needed with attention to impact on his overall mental status. Sylvester Odom MD Apr 12, 2017 22:35
[2017-04-13] VITALS (14 sets, daily range): BP systolic 108–127; BP diastolic 52–100; PULSE 55–82; RESP 12–22; TEMP 97.7–98.9; O2SAT 95–100
[2017-04-13 02:05] LABS: AUTOMATED NEUTROPHIL # 5.2 TH/MM3 (1.8-7.7); BASOPHIL % 0.5 % (0.0-2.0); EOSINOPHIL # 0.1 TH/MM3 (0-0.4); EOSINOPHIL % 1.9 % (0.0-4.0); HEMATOCRIT 39.1 % (39.0-51.0); HEMOGLOBIN 13.4 GM/DL (13.0-17.0); LYMPH % 15.8 % (9.0-44.0); LYMPHOCYTE # 1.1 TH/MM3 (1.0-4.8); MEAN CELL VOLUME 88.1 FL (80.0-100.0); MEAN CORPUSCULAR HEMOGLOBIN 30.3 PG (27.0-34.0); MEAN CORPUSCULAR HGB CONC 34.4 % (32.0-36.0); MEAN PLATELET VOLUME 7.5 FL (7.0-11.0); MONO % 9.1 % (0.0-8.0); MONOCYTE # 0.6 TH/MM3 (0-0.9); NEUT % 72.7 % (16.0-70.0); PLATELET COUNT 219 TH/MM3 (150-450); RED BLOOD COUNT 4.44 MIL/MM3 (4.50-5.90); RED CELL DISTRIBUTION WIDTH 14.8 % (11.6-17.2); WHITE BLOOD COUNT 7.1 TH/MM3 (4.0-11.0)
[2017-04-13 02:13] LABS: INTERNATIONAL NORMALIZED RATIO 1.1 RATIO; PROTHROMBIN TIME - PATIENT 11.1 SEC (9.8-11.6)
[2017-04-13 02:18] LABS: ALBUMIN 3.5 GM/DL (3.4-5.0); ALT (GPT) 17 U/L (12-78); AST (GOT) 14 U/L (15-37); BICARBONATE 28.5 MEQ/L (21.0-32.0); BLOOD UREA NITROGEN 18 MG/DL (7-18); CALCIUM 8.7 MG/DL (8.5-10.1); CHLORIDE 108 MEQ/L (98-107); CREATININE 0.86 MG/DL (0.60-1.30); GLOMERULAR FILTRATION RATE 88 ML/MIN (>89); GLUCOSE,RANDOM 118 MG/DL (74-106); MAGNESIUM 1.8 MG/DL (1.5-2.5); PHOSPHORUS 3.8 MG/DL (2.5-4.9); SODIUM (NA) 142 MEQ/L (136-145)
[2017-04-13 02:22] LABS: ALKALINE PHOSPHATASE 54 U/L (45-117); TOTAL BILIRUBIN ADULT 0.5 MG/DL (0.2-1.0); TOTAL PROTEIN 6.6 GM/DL (6.4-8.2); TROPONIN I 0.02 NG/ML (0.02-0.05)
[2017-04-13] MEDS: RESP: ALBUTEROL 2.5 MG/IPRATROPIUM 0.5 MG NEB (SCH) INH ×4 (03:28→19:37)
[2017-04-13] MEDS: CHLORHEXIDINE GLUCONATE 2 % 1 PACK (2 CLOTHS) TOP SCH (04:00)
[2017-04-13] MEDS: INSULIN NovoLIN REGULAR SUPPLEMENTAL SCALE SQ SCH ×4 (08:00→21:00)
[2017-04-13] MEDS: SODIUM CHLOR 0.9% 1000 ML INJ 1,000 ML IV SCH ×2 (08:55→20:19)
[2017-04-13] MEDS: TOLTERODINE TARTRATE 4 MG CAP LA PO SCH (08:57)
[2017-04-13] MEDS: levETIRAcetam 500 MG TAB PO SCH ×2 (08:57→20:18)
[2017-04-13] MEDS: PRAVASTATIN SOD 40 MG TAB PO SCH (08:57)
[2017-04-13] MEDS: DOCUSATE SODIUM 50 MG/SENNA 8.6 MG TAB PO SCH ×2 (08:57→20:18)
[2017-04-13] MEDS: VALSARTAN 80 MG TAB PO SCH (08:57)
[2017-04-13] MEDS: SERTRALINE HCL 50 MG TAB PO SCH (08:57)
[2017-04-13] MEDS: GABAPENTIN 400 MG CAP PO SCH ×3 (08:57→18:00)
[2017-04-13] MEDS: FAMOTIDINE 20 MG/2 ML VIAL IV PUSH SCH ×2 (08:57→20:18)
[2017-04-13] MEDS: FAMOTIDINE 20 MG TAB PO SCH ×2 (08:58→20:18)
[2017-04-13] MEDS: DOCUSATE SODIUM 100 MG CAP PO SCH ×2 (08:58→20:18)
[2017-04-13] MEDS: SODIUM CHLORIDE 0.9% FLUSH 10 ML FLUSH IV FLUSH SCH ×2 (08:58→20:19)
--- NOTE | 2017-04-13 10:24 | RADRPT ---
EXAM DATE/TIME: 04/13/2017 09:59 [place] COMPARISON: CT BRAIN W/O CONTRAST, April 12, 2017, 17:36. INDICATIONS : Subdural hematoma. RADIATION DOSE: 41.91 CTDIvol (mGy) MEDICAL HISTORY : subdural hematoma SURGICAL HISTORY : None. ENCOUNTER: Subsequent ACUITY: 2 days PAIN SCALE: 0/10 LOCATION: cranial TECHNIQUE: Multiple contiguous axial images were obtained of the head. Using automated exposure control and adj ustment of the mA and/or kV according to patient size, radiation dose was kept as low as reasonably a chievable to obtain optimal diagnostic quality images. DICOM format image data is available electro nically for review and comparison. FINDINGS: CEREBRUM: There is a large left subdural hematoma seen over the left convexity measuring up to 2.2 cm in thickn ess. There is 1.2 cm of left to right midline shift seen at the level of the body the ventricles. The re is compression of the left lateral ventricle. The basal cisterns are narrowed but still open. Ther e is a smaller right frontal subdural hematoma measuring 6 mm in thickness. There is some hemorrhage within the anterior interhemispheric fissure consistent with subdural hemorrhage extending into this region. The anterior falx measures up to 4 mm. POSTERIOR FOSSA: The cerebellum and brainstem are intact. The 4th ventricle is midline. The cerebellopontine angle i s unremarkable. EXTRACRANIAL: The visualized portion of the orbits is intact. SKULL: The calvaria is intact. No evidence of skull fracture. CONCLUSION: 1. Large left subdural hematoma which is unchanged from the prior exam. There continues to be 1.2 cm of left to right midline shift. 2. Smaller right frontal subdural hematoma measuring 6 mm. Juan Carlos Olivarez MD on April 13, 2017 at 10:11 Board Certified Radiologist. This report was verified electronically.
[2017-04-13] MEDS: MORPHINE SULFATE 2 MG/ML INJ IV PRN (12:14)
--- NOTE | 2017-04-13 13:09 | HHI.NSPN ---
History Chief Complaint: intubated and sedated Interval History The patient was examined in the presence of the family today and a more detailed history has been obtained. They indicate chronic progressive dementia to the point that the patient has had to move in with his daughter earlier this year. He cannot care for himself. He is usually quite confused, conversing with only a few words or short sentences and unable to stay on task with conversations. He is usually very active, fidgeting constantly. They state that his mental status today is not significantly changed from his overall baseline. He did go to the emergency room a couple of weeks ago at [facility] due to some pressure sensation or frontal headaches and was diagnosed with sinus congestion. A CT scan of the head was not obtained. He has had no definite falls over the past few weeks up until yesterday. Exam Results Vital Signs Date Time Temp Pulse Resp B/P (MAP) Pulse Ox O2 Delivery O2 Flow Rate FiO2 04/13/17 10:00 68 04/13/17 08:52 99 21 04/13/17 08:00 98.7 15 127/100 (109) 04/13/17 07:00 Room Air Intake and Output 04/13/17 04/13/17 04/14/17 08:00 16:00 00:00 Intake Total 1000 ml Output Total 450 ml Balance -450 ml 1000 ml Physical Examination Gen.: Sitting up in bed. No apparent distress Respirations: Clear to auscultation Cardiac: 3/6 systolic murmur. Regular rhythm Abdomen: Soft, nontender Extremities: No significant edema Neurologic: Awake and alert. A little agitated, fidgeting constantly with his tubes in bed. Follows a few simple commands with difficulty. Does not focus or follow well with his eyes. He will only briefly attend to a task and has to constantly be redirected. His speech is slow, mildly dysarthric. Significant tangential thought processes. Extraocular movements and visual dutton to confrontation intact Sensation intact light touch all extremities Strength normal major flexion-extension groups all extremities Lab, Micro, Other Results 04/13/2017 CT scan head images reviewed. Stable small acute right frontal and large left hemisphere subacute on chronic subdural hematoma with stable approximately 11-12 mm midline shift. Head CT 04/13/17 0800 Signed Impressions: Service Date/Time: Thursday, April 13, 2017 09:59 - CONCLUSION: 1. Large left subdural hematoma which is unchanged from the prior exam. There continues to be 1.2 cm of left to right midline shift. 2. Smaller right frontal subdural hematoma measuring 6 mm. Juan Carlos Olivarez MD Laboratory Tests Test 04/12/17 18:00 04/12/17 20:16 04/12/17 20:51 04/13/17 01:43 White Blood Count 5.6 TH/MM3 7.1 TH/MM3 Red Blood Count 4.60 MIL/MM3 4.44 MIL/MM3 Hemoglobin 13.4 GM/DL 13.4 GM/DL Hematocrit 40.2 % 39.1 % Mean Corpuscular Volume 87.4 FL 88.1 FL Mean Corpuscular Hemoglobin 29.1 PG 30.3 PG Mean Corpuscular Hemoglobin Concent 33.4 % 34.4 % Red Cell Distribution Width 14.0 % 14.8 % Platelet Count 245 TH/MM3 219 TH/MM3 Mean Platelet Volume 7.1 FL 7.5 FL Neutrophils (%) (Auto) 77.0 % 72.7 % Lymphocytes (%) (Auto) 13.8 % 15.8 % Monocytes (%) (Auto) 6.4 % 9.1 % Eosinophils (%) (Auto) 2.2 % 1.9 % Basophils (%) (Auto) 0.6 % 0.5 % Neutrophils # (Auto) 4.3 TH/MM3 5.2 TH/MM3 Lymphocytes # (Auto) 0.8 TH/MM3 1.1 TH/MM3 Monocytes # (Auto) 0.4 TH/MM3 0.6 TH/MM3 Eosinophils # (Auto) 0.1 TH/MM3 0.1 TH/MM3 Basophils # (Auto) 0.0 TH/MM3 0.0 TH/MM3 CBC Comment DIFF FINAL DIFF FINAL Differential Comment Prothrombin Time 10.8 SEC 11.1 SEC Prothromb Time International Ratio 1.1 RATIO 1.1 RATIO Activated Partial Thromboplast Time 26.8 SEC 27.0 SEC Blood Urea Nitrogen 20 MG/DL 18 MG/DL Creatinine 1.00 MG/DL 0.86 MG/DL Random Glucose 215 MG/DL 118 MG/DL Total Protein 6.9 GM/DL 6.6 GM/DL Albumin 3.6 GM/DL 3.5 GM/DL Calcium Level 8.9 MG/DL 8.7 MG/DL Alkaline Phosphatase 68 U/L 54 U/L Aspartate Amino Transf (AST/SGOT) 14 U/L 14 U/L Alanine Aminotransferase (ALT/SGPT) 15 U/L 17 U/L Total Bilirubin 0.6 MG/DL 0.5 MG/DL Sodium Level 137 MEQ/L 142 MEQ/L Potassium Level 3.9 MEQ/L 3.6 MEQ/L Chloride Level 101 MEQ/L 108 MEQ/L Carbon Dioxide Level 30.5 MEQ/L 28.5 MEQ/L Anion Gap 6 MEQ/L 6 MEQ/L Estimat Glomerular Filtration Rate 74 ML/MIN 88 ML/MIN Lipase 161 U/L Nasal Screen MRSA (PCR) MRSA NOT DETECTED Troponin I LESS THAN 0.02 NG/ML 0.02 NG/ML Phosphorus Level 3.8 MG/DL Magnesium Level 1.8 MG/DL Medical Decision Making Impression and Plan Impression: 1. 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 Dementia 4. Cardiac murmur Plan: Findings were discussed at length with the family in the room today. Approximately a half hour with him reviewing his CT scan images and explaining the pathology involved as well as treatment options and prognosis. I advised him that without surgical intervention there is a relatively high chance of progression of the mass effect from the left hemisphere hematoma with further brain stem compression and declining neurologic function. With surgical intervention, there is a definite chance of rebound swelling or parenchymal hemorrhage as well as seizures or recurrent subdural hematoma. This risk is increased with the patient being on aspirin. I advised them that in some cases, an elderly patient with a large hematoma may decline significantly postoperatively without recovering. The risk of postoperative seizures has been discussed. They appear to understand all of the above. They wish to proceed with surgical intervention. I advised him that depending on intraoperative findings, a bur hole for evacuation of hematoma versus a larger craniotomy with resection of subdural membrane may be undertaken. I advised him that it is not uncommon to have to perform additional surgeries for recurrent hematoma especially in a patient who has been on antiplatelet agents. The additional risk of anesthesia with cardiac valvular disease has been discussed. They are going to discuss treatment options with other family members. They wish to have the surgery performed tomorrow afternoon so they have a chance to talk with additional family members. Otherwise see consents have been reviewed with the family, signed and witnessed for tentative surgery on 04/14/2017. Sylvester Odom MD Apr 13, 2017 13:09
[2017-04-13] MEDS ORDERED: DEXMEDETOMIDINE 200 MCG/50 ML Premix IV PRN (14:15)
[2017-04-13] MEDS ORDERED: DEXMEDETOMIDINE 200 MCG in NS 48 ML IV PRN (14:30)
--- NOTE | 2017-04-13 16:19 | HHI.CCPN ---
Subjective Remarks/Hospital Course 04/12: 71-year-old male presents for evaluation after he fell hitting his head. Per family report they were in the bathroom trying to change his undergarments when he slipped and fell hitting his head. He is not on anticoagulant. The patient is pleasantly confused and patient's daughter states this is his baseline. He has had no altered mental status since the fall. No vomiting. The patient reports a mild headache without radiation. No neck pain or back pain. He has been ambulatory without difficulty since the fall. The CT head performed in the emergency department shows bilateral subdural hematomas in addition to parafalcine subdural hematoma, left frontal and temporal lobe intraparenchymal hemorrhages and subfalcine herniation from [id number]. 04/13: Resting in bed comfortably at the time of my evaluation this morning. Confused, does not know the year. Knows he is in the hospital. Moves all 4 extremity's. Does not appear to be in any acute distress. Objective Vital Signs Date Time Temp Pulse Resp B/P (MAP) Pulse Ox O2 Delivery O2 Flow Rate FiO2 04/13/17 14:00 82 04/13/17 12:19 14 04/13/17 12:00 98.2 114/56 (75) 95 04/13/17 08:52 21 04/13/17 07:00 Room Air Intake and Output 04/13/17 04/13/17 04/14/17 08:00 16:00 00:00 Intake Total 1000 ml Output Total 450 ml Balance -450 ml 1000 ml Result Diagram: 04/13/17 0143 04/13/17 0143 Imaging Last [address] 04/12/17 0000 Signed Impressions: Service Date/Time: Wednesday, April 12, 2017 17:36 - CONCLUSION: Bilateral subdural hematomas in addition to parafalcine subdural hematoma, left frontal and temporal lobe intraparenchymal hemorrhages and subfalcine herniation from [id number]. Maria Guadalupe Alvarado MD Cervical Spine CT 04/12/17 0000 Signed Impressions: Service Date/Time: Wednesday, April 12, 2017 17:36 - CONCLUSION: Degenerative spondylosis without any significant compromise to the thecal sac or the exiting nerve roots. Maria Guadalupe Alvarado MD Objective Remarks GENERAL: Elderly gentleman pleasantly confused awake and alert SKIN: Warm and dry. HEAD: Atraumatic. Normocephalic. EYES: Pupils equal and round. No scleral icterus. No injection or drainage. ENT: No nasal bleeding or discharge. Mucous membranes pink and moist. NECK: Trachea midline. No JVD. CARDIOVASCULAR: Regular rate and rhythm. RESPIRATORY: No accessory muscle use. Clear to auscultation. Breath sounds equal bilaterally. GASTROINTESTINAL: Abdomen soft, non-tender, nondistended. Hepatic and splenic margins not palpable. MUSCULOSKELETAL: Extremities without clubbing, cyanosis, or edema. No obvious deformities. NEUROLOGICAL: Awake and alert, PLEASANTLY CONFUSED BUT FOLLOWS COMMANDS WELL.... No obvious cranial nerve deficits. Motor grossly within normal limits. Five out of 5 muscle strength in the arms and legs. Normal speech. A/P Assessment and Plan Subdural hematoma -Neurosurgery following. 94 bur holes with evacuation of subdural hematoma tentatively planned for 1/[address] Odom. -Started Precedex gtt. for agitation. - Neuro checks per unit protocol - Repeat CT head per neurosurgery - Seizure prophylaxis with Keppra - Further management per neurosurgeon COPD - No exacerbation - No steroids indicated - DuoNeb scheduled and when necessary Dementia - Continue Aricept Hypertension - Valsartan 80 Mg Tab 80 Mg PO DAILY Psychosis - Trazodone - Zoloft Diabetes mellitus - Hold metformin while in the ICU - Insulin sliding scale DVT GI prophylaxis - Teds SCDs - No pharmacological DVT prophylaxis due to subdural hematoma - Pepcid Further recommendations per neurosurgery. Sp Roman MD Apr 13, 2017 16:19
[2017-04-13] MEDS ORDERED: DEXMEDETOMIDINE INJ 1,000 MCG in SODIUM CHLOR 0.9% 250 ML INJ 240 ML IV PRN (16:45)
[2017-04-13] MEDS: traZODone HCL 100 MG TAB PO SCH (20:18)
[2017-04-13] MEDS: DONEPEZIL HCL 5 MG TAB PO SCH (20:18)
[2017-04-13] MEDS ORDERED: LACTATED RINGER'S 1000 ML IV PRN (22:00)
[2017-04-13] MEDS ORDERED: POVIDONE IODINE 5% (ANTISEPSIS KIT) 4 APPLICATIONS EACH NARE PRN (22:00)
[2017-04-13] MEDS ORDERED: SODIUM CHLORID 0.9% 500 ML IV PRN (22:00)
[2017-04-13] MEDS ORDERED: CHLORHEXIDINE GLUCONATE 2 % 1 PACK (2 CLOTHS) TOPICAL PRN (22:00)
[2017-04-14] VITALS (13 sets, daily range): BP systolic 106–179; BP diastolic 53–87; PULSE 50–86; RESP 13–26; TEMP 97.5–99.3; O2SAT 95–100
[2017-04-14] MEDS: RESP: ALBUTEROL 2.5 MG/IPRATROPIUM 0.5 MG NEB (SCH) INH ×4 (02:59→22:04)
[2017-04-14] MEDS: CHLORHEXIDINE GLUCONATE 2 % 1 PACK (2 CLOTHS) TOP SCH (03:46)
[2017-04-14 05:03] LABS: ALBUMIN 3.4 GM/DL (3.4-5.0); ALT (GPT) 12 U/L (12-78); AST (GOT) 15 U/L (15-37); BICARBONATE 26.9 MEQ/L (21.0-32.0); BLOOD UREA NITROGEN 14 MG/DL (7-18); CALCIUM 8.3 MG/DL (8.5-10.1); CHLORIDE 109 MEQ/L (98-107); CREATININE 0.82 MG/DL (0.60-1.30); GLOMERULAR FILTRATION RATE 93 ML/MIN (>89); GLUCOSE,RANDOM 110 MG/DL (74-106); SODIUM (NA) 144 MEQ/L (136-145)
[2017-04-14 05:06] LABS: ALKALINE PHOSPHATASE 49 U/L (45-117); TOTAL BILIRUBIN ADULT 0.6 MG/DL (0.2-1.0); TOTAL PROTEIN 6.4 GM/DL (6.4-8.2)
[2017-04-14 06:49] LABS: AUTOMATED NEUTROPHIL # 3.9 TH/MM3 (1.8-7.7); BASOPHIL % 0.4 % (0.0-2.0); EOSINOPHIL # 0.1 TH/MM3 (0-0.4); EOSINOPHIL % 1.4 % (0.0-4.0); HEMATOCRIT 37.6 % (39.0-51.0); HEMOGLOBIN 13.2 GM/DL (13.0-17.0); LYMPHOCYTE # 0.5 TH/MM3 (1.0-4.8); MEAN CELL VOLUME 87.8 FL (80.0-100.0); MEAN CORPUSCULAR HEMOGLOBIN 30.9 PG (27.0-34.0); MEAN CORPUSCULAR HGB CONC 35.2 % (32.0-36.0); MEAN PLATELET VOLUME 8.1 FL (7.0-11.0); MONO % 8.3 % (0.0-8.0); MONOCYTE # 0.4 TH/MM3 (0-0.9); NEUT % 78.9 % (16.0-70.0); PLATELET COUNT 182 TH/MM3 (150-450); RED BLOOD COUNT 4.29 MIL/MM3 (4.50-5.90); RED CELL DISTRIBUTION WIDTH 14.8 % (11.6-17.2)
--- NOTE | 2017-04-14 07:46 | HHI.CCPN ---
Subjective Remarks/Hospital Course 04/12: 71-year-old male presents for evaluation after he fell hitting his head. Per family report they were in the bathroom trying to change his undergarments when he slipped and fell hitting his head. He is not on anticoagulant. The patient is pleasantly confused and patient's daughter states this is his baseline. He has had no altered mental status since the fall. No vomiting. The patient reports a mild headache without radiation. No neck pain or back pain. He has been ambulatory without difficulty since the fall. The CT head performed in the emergency department shows bilateral subdural hematomas in addition to parafalcine subdural hematoma, left frontal and temporal lobe intraparenchymal hemorrhages and subfalcine herniation from [id number]. 04/13: Resting in bed comfortably at the time of my evaluation this morning. Confused, does not know the year. Knows he is in the hospital. Moves all 4 extremity's. Does not appear to be in any acute distress. 04/14: Afebrile. A chin continues to be confused but easily following commands notable systolic ejection murmur, echo pending. Patient scheduled for neurosurgical intervention this afternoon. Objective Vital Signs Date Time Temp Pulse Resp B/P (MAP) Pulse Ox O2 Delivery O2 Flow Rate FiO2 04/14/17 06:00 55 04/14/17 04:00 97.5 13 140/67 (91) 100 04/13/17 19:00 Room Air 04/13/17 08:52 21 Intake and Output 04/14/17 04/14/17 04/15/17 08:00 16:00 00:00 Intake Total 60 ml Output Total 925 ml Balance -865 ml Result Diagram: 04/14/17 0320 04/14/17 0320 Imaging Last [address] 04/12/17 0000 Signed Impressions: Service Date/Time: Wednesday, April 12, 2017 17:36 - CONCLUSION: Bilateral subdural hematomas in addition to parafalcine subdural hematoma, left frontal and temporal lobe intraparenchymal hemorrhages and subfalcine herniation from [id number]. Maria Guadalupe Alvarado MD Cervical Spine CT 04/12/17 0000 Signed Impressions: Service Date/Time: Wednesday, April 12, 2017 17:36 - CONCLUSION: Degenerative spondylosis without any significant compromise to the thecal sac or the exiting nerve roots. Maria Guadalupe Alvarado MD Objective Remarks GENERAL: Elderly gentleman pleasantly confused awake and alert SKIN: Warm and dry. HEAD: Atraumatic. Normocephalic. EYES: Pupils equal and round. No scleral icterus. No injection or drainage. ENT: No nasal bleeding or discharge. Mucous membranes pink and moist. NECK: Trachea midline. No JVD. CARDIOVASCULAR: Regular rate and rhythm. 3/6 Marzena acute ejection murmur RESPIRATORY: No accessory muscle use. Clear to auscultation. Breath sounds equal bilaterally. GASTROINTESTINAL: Abdomen soft, non-tender, nondistended. Hepatic and splenic margins not palpable. MUSCULOSKELETAL: Extremities without clubbing, cyanosis, or edema. No obvious deformities. NEUROLOGICAL: Awake and alert, PLEASANTLY CONFUSED BUT FOLLOWS COMMANDS WELL.... No obvious cranial nerve deficits. Motor grossly within normal limits. Five out of 5 muscle strength in the arms and legs. Normal speech. Urinary Catheter: Yes Munoz insert reason: Measure Accurate Output Date of Insertion: Apr 13, 2017 A/P Assessment and Plan TBI -Subdural hematoma -Neurosurgery following. Dr. Odom pricila holes with evacuation of subdural hematoma tentatively planned for today - Precedex infusion 0.1 mcg/kg /hr for agitation. - Neuro checks per unit protocol - Repeat CT head per neurosurgery - Seizure prophylaxis with Keppra - Further management per neurosurgeon COPD - No exacerbation - No steroids indicated - DuoNeb scheduled and when necessary Dementia - Continue Aricept Hypertension - Valsartan 80 Mg Tab 80 Mg PO DAILY -1/2 EKG prolonged QT 475, continue close monitoring Psychosis - Trazodone - Zoloft Diabetes mellitus - Hold metformin while in the ICU - Insulin sliding scale DVT GI prophylaxis - Teds SCDs - No pharmacological DVT prophylaxis due to subdural hematoma - Pepcid Further recommendations per neurosurgery. Dispo: Level 3 Discussed with FACILITY PRACTICE SPECIALIST at bedside Physician Meghan Antunez MD Apr 14, 2017 07:46
[2017-04-14] MEDS: INSULIN NovoLIN REGULAR SUPPLEMENTAL SCALE SQ SCH ×3 (08:00→21:00)
[2017-04-14] MEDS: VALSARTAN 80 MG TAB PO SCH (09:00)
[2017-04-14] MEDS: DOCUSATE SODIUM 50 MG/SENNA 8.6 MG TAB PO SCH ×3 (09:00→21:00)
[2017-04-14] MEDS: FAMOTIDINE 20 MG TAB PO SCH ×2 (09:00→21:00)
[2017-04-14] MEDS: TOLTERODINE TARTRATE 4 MG CAP LA PO SCH ×2 (09:00→09:56)
[2017-04-14] MEDS: DOCUSATE SODIUM 100 MG CAP PO SCH ×3 (09:00→21:00)
[2017-04-14] MEDS: PRAVASTATIN SOD 40 MG TAB PO SCH ×2 (09:00→09:56)
[2017-04-14] MEDS: GABAPENTIN 400 MG CAP PO SCH ×3 (09:00→12:57)
[2017-04-14] MEDS: SERTRALINE HCL 50 MG TAB PO SCH ×2 (09:00→09:56)
[2017-04-14] MEDS: SODIUM CHLORIDE 0.9% FLUSH 10 ML FLUSH IV FLUSH SCH ×2 (09:56→21:00)
[2017-04-14] MEDS: FAMOTIDINE 20 MG/2 ML VIAL IV PUSH SCH ×2 (09:56→21:00)
[2017-04-14] MEDS: levETIRAcetam 500 MG TAB PO SCH (09:56)
[2017-04-14] MEDS: SODIUM CHLOR 0.9% 1000 ML INJ 1,000 ML IV SCH ×2 (09:57→20:40)
[2017-04-14] MEDS: levETIRAcetam INJ 500 MG in SODIUM CHLORIDE 0.9% INJ 100 ML IV SCH ×2 (11:44→21:00)
[2017-04-14] MEDS ORDERED: DIPY25TA25 PO (12:16)
[2017-04-14] MEDS: hydrALAZINE HCL 20 MG/ML VIAL IV PUSH PRN (12:56)
[2017-04-14] MEDS ORDERED: THROMBIN (TOPICAL) 5,000 UNIT VIAL ONE (14:49)
[2017-04-14] MEDS ORDERED: GENTAMICIN SULFATE 80 MG/2 ML VIAL ONE (14:49)
[2017-04-14] MEDS ORDERED: GELFOAM SIZE 100 ONE (14:49)
[2017-04-14] MEDS ORDERED: LIDOCAINE 1%/EPINEPHrine 1:100,000 SOLN 20 ML VIAL ONE (14:50)
--- NOTE | 2017-04-14 16:50 | EKG ---
Date Performed: 04/14/2017 Time Performed: 05:26:16 PTAGE: 71 years EKG: Sinus bradycardia Prolonged QT interval Possible left anterior fascicular block Borderline ECG NO PREVIOUS TRACING DOCTOR: Rajinder Ramey Interpretating Date/Time 04/14/2017 16:50:17
[2017-04-14] MEDS ORDERED: ceFAZolin 2 GM PREMIX 50 ML ONE (17:54)
[2017-04-14 20:00] LABS: AUTOMATED NEUTROPHIL # 8.2 TH/MM3 (1.8-7.7); BASOPHIL % 0.5 % (0.0-2.0); EOSINOPHIL # 0.1 TH/MM3 (0-0.4); EOSINOPHIL % 1.1 % (0.0-4.0); HEMATOCRIT 38.1 % (39.0-51.0); HEMOGLOBIN 12.7 GM/DL (13.0-17.0); LYMPH % 6.9 % (9.0-44.0); LYMPHOCYTE # 0.7 TH/MM3 (1.0-4.8); MEAN CELL VOLUME 88.5 FL (80.0-100.0); MEAN CORPUSCULAR HEMOGLOBIN 29.5 PG (27.0-34.0); MEAN CORPUSCULAR HGB CONC 33.4 % (32.0-36.0); MEAN PLATELET VOLUME 7.6 FL (7.0-11.0); MONO % 7.9 % (0.0-8.0); MONOCYTE # 0.8 TH/MM3 (0-0.9); NEUT % 83.6 % (16.0-70.0); PLATELET COUNT 268 TH/MM3 (150-450); RED BLOOD COUNT 4.31 MIL/MM3 (4.50-5.90); RED CELL DISTRIBUTION WIDTH 14.4 % (11.6-17.2); WHITE BLOOD COUNT 9.8 TH/MM3 (4.0-11.0)
[2017-04-14 20:04] LABS: INTERNATIONAL NORMALIZED RATIO 1.1 RATIO; PROTHROMBIN TIME - PATIENT 11.4 SEC (9.8-11.6)
[2017-04-14 20:14] LABS: BICARBONATE 21.3 MEQ/L (21.0-32.0); CALCIUM 7.9 MG/DL (8.5-10.1); CREATININE 0.79 MG/DL (0.60-1.30); MAGNESIUM 1.8 MG/DL (1.5-2.5)
[2017-04-14] MEDS ORDERED: PROPOFOL 1000 MG/100 ML INJ 100 ML ONE (20:16)
[2017-04-14] MEDS ORDERED: MORPHINE SULFATE 4 MG/ML INJ ONE (20:45)
[2017-04-14] MEDS ORDERED: DO NOT ADM ANY ANTICOAGULANT DRUGS PRN (21:00)
[2017-04-14] MEDS: traZODone HCL 100 MG TAB PO SCH (21:00)
[2017-04-14] MEDS: DONEPEZIL HCL 5 MG TAB PO SCH (21:00)
[2017-04-14] MEDS ORDERED: PHENYLEPHRINE INJ 40 MG in DEXTROSE 5% IN WATE 500 ML INJ 496 ML IV PRN ×2 (21:15)
[2017-04-14] MEDS ORDERED: D5-NS + KCL 20 MEQ INJ 1,000 ML IV SCH (21:15)
[2017-04-14] MEDS ORDERED: TERBUTALINE INJ 1 MG/ML AMP SQ PRN (21:15)
[2017-04-14] MEDS ORDERED: PHENYLEPHRINE HCL 10 MG/ML VIAL ONE (21:18)
--- NOTE | 2017-04-14 21:30 | PD.OP ---
Operative Report Date of Surgery: Apr 14, 2017 Preoperative Diagnosis: (1) Subdural hematoma, chronic (2) Acute subdural hematoma 1. Left hemisphere subacute on chronic subdural hematoma 2. Acute right frontal subdural hematoma Postoperative Diagnosis: (1) Subdural hematoma, chronic (2) Acute subdural hematoma 1. Left hemisphere subacute on chronic subdural hematoma 2. Acute right frontal subdural hematoma Procedure: Left frontoparietal craniotomy for evacuation of subacute on chronic subdural hematoma Anesthesia: Gen. Surgeon: Sylvester Odom Deputy Court Clerk(s): Mary Fraga Operation and Findings: Findings: Large left hemisphere subacute on chronic subdural hematoma with very thick double membrane The patient was brought into the operating room and general endotracheal anesthesia induced without difficulty. The Munoz catheter, and sequential compression devices were in place. The lines were established per anesthesia. The patient was placed in semilateral position on the 3080 table with the head on the horseshoe headrest. All extremities were appropriately padded Appropriate timeout procedure was performed with all personnel present and in agreement The left side of the head was shaved with the clippers and sterilely prepped and draped 1% Xylocaine was used for local infiltration over the incision site which was made over the left frontoparietal area in a curvilinear fashion and carried sharply down to the cranium through the temporalis muscle and fascia. The scalp and temporalis muscle flap were elevated in a single layer with the periosteal elevator and retracted over a laparotomy sponge with the large scalp hooks. The hotel guest service agent was used to place a single bur hole in the posterior left frontoparietal region and the craniotome was used since to incise the bone flap. The dura was moderately tense upon removal of the bone flap. The dura was opened in a cruciate fashion and the edges retracted with 4-0 Nurolon suture. A very thick subdural membrane was immediately encountered. The membrane was opened and a large amount of subacute-appearing subdural hematoma was evacuated with gentle suction and irrigation. The Midway dissector was used to release this circumferentially along the entire left hemisphere from the overlying dura. The pituitary biopsy forceps were then used to remove this thick membrane. Immediately beneath this there was a second somewhat thinner membrane. This deeper membrane was also incised and a moderate amount of chronic appearing subdural hematoma was evacuated with suction and irrigation. The remainder of both the superficial and the deep membrane were then circumferentially removed along the entire left hemisphere with the Midway dissectors and the pituitary biopsy forceps. There was quite a bit of bleeding along the region of the medial left posterior frontal lobe near the medial convexity and sagittal sinus. This was carefully controlled along with any other significant bleeding sites with the bipolar forceps. The brain was soft and pulsatile at the time of closure. The dura was reapproximated with 4-0 Nurolon in an interrupted and running fashion, with dural tack up sutures as needed along the border of the craniotomy site through openings made with the wire-passing drill. A 7 mm flat fluted drain [address] in the subdural space The drains were brought out through incisions in the posterior parietal region and secured to the skin with nylon suture The closure was performed with 2-0 Vicryl for the temporalis muscle fascia and galeal closure and gilles for the skin closure. A dressing of sterile Telfa, 4 x 4's, and a loose head stockinette was applied. The patient was taken to recovery room in stable condition All counts were correct at the end of the case. Estimated blood loss was 600 cc No specimen was sent to pathology Sylvester Odom MD Apr 14, 2017 21:30
[2017-04-14] MEDS: MORPHINE SULFATE 2 MG/ML INJ IV PRN (23:30)
[2017-04-15] VITALS (19 sets, daily range): BP systolic 104–146; BP diastolic 50–67; PULSE 76–96; RESP 11–16; TEMP 98.1–99.8; O2SAT 99–100
[2017-04-15] MEDS: PROPOFOL 1000 MG/100 ML IV PRN ×5 (01:26→21:54)
[2017-04-15] MEDS: MORPHINE SULFATE 2 MG/ML INJ IV PRN ×2 (03:28→23:34)
[2017-04-15] MEDS: CHLORHEXIDINE GLUCONATE 2 % 1 PACK (2 CLOTHS) TOP SCH (03:31)
[2017-04-15] MEDS: RESP: ALBUTEROL 2.5 MG/IPRATROPIUM 0.5 MG NEB (SCH) INH ×4 (03:43→20:05)
--- NOTE | 2017-04-15 05:05 | RADRPT ---
EXAM DATE/TIME: 04/15/2017 04:27 [facility] COMPARISON: CT BRAIN W/O CONTRAST, April 13, 2017, 9:59. INDICATIONS : Evaluate subdural hematoma post op. RADIATION DOSE: 59.06 CTDIvol (mGy) ; Tabletop CT Head MEDICAL HISTORY : Non-responsive. SURGICAL HISTORY : Non-responsive. ENCOUNTER: Subsequent ACUITY: 3 days PAIN SCALE: Non-responsive LOCATION: cranial TECHNIQUE: Multiple contiguous axial images were obtained of the head. Using automated exposure control and adj ustment of the mA and/or kV according to patient size, radiation dose was kept as low as reasonably a chievable to obtain optimal diagnostic quality images. DICOM format image data is available electro nically for review and comparison. FINDINGS: Since the previous examination there has been craniotomy and placement of 2 intracranial surgical melissa ins within the subdural space overlying the left frontal lobe. There is a new acute subdural hematoma on the left. Previously was mixed density on the current study this is clearly acute. This subdural hemorrhage measures 1.3 cm in thickness. A tiny right frontal subdural hematoma measures 9 mm. This i s slightly larger than prior study where measured 6 mm. Left to right midline shift measures 8 mm whi ch is less than on the prior study. The tubes remain patent. Brain parenchyma is normal in attenuatio n. CONCLUSION: 1. Interval left craniotomy with surgical drain placement. There is new diffuse subdural hematoma inv olving the left side beneath the craniotomy bone despite surgical drain placement. 2. Small subdural hemorrhage along the right frontal region. This is slightly larger from the prior s tudy. 3. Reduction in size the midline shift. Da Ramirez Jr., MD on April 15, 2017 at 5:01 Board Certified Radiologist. This report was verified electronically.
[2017-04-15 05:21] LABS: HEMATOCRIT 32.7 % (39.0-51.0); HEMOGLOBIN 11.5 GM/DL (13.0-17.0); MEAN CELL VOLUME 87.8 FL (80.0-100.0); MEAN CORPUSCULAR HEMOGLOBIN 30.8 PG (27.0-34.0); MEAN CORPUSCULAR HGB CONC 35.1 % (32.0-36.0); MEAN PLATELET VOLUME 7.6 FL (7.0-11.0); PLATELET COUNT 234 TH/MM3 (150-450); RED BLOOD COUNT 3.72 MIL/MM3 (4.50-5.90); RED CELL DISTRIBUTION WIDTH 14.8 % (11.6-17.2); WHITE BLOOD COUNT 9.5 TH/MM3 (4.0-11.0)
[2017-04-15 05:41] LABS: BICARBONATE 23.3 MEQ/L (21.0-32.0); CALCIUM 7.7 MG/DL (8.5-10.1); CREATININE 0.86 MG/DL (0.60-1.30)
[2017-04-15] MEDS ORDERED: RESP: ALBUTEROL 2.5 MG/IPRATROPIUM 0.5 MG NEB (SCH) NEB (08:00)
[2017-04-15] MEDS ORDERED: RESP: ALBUTEROL 2.5 MG/IPRATROPIUM 0.5 MG NEB (PRN) NEB (08:00)
[2017-04-15] MEDS ORDERED: DEXTROSE 50% IN WATER 50 ML VIAL(D50) IV PUSH PRN (08:15)
[2017-04-15] MEDS ORDERED: GLUCAGON 1 MG/ML VIAL OTHER PRN (08:15)
--- NOTE | 2017-04-15 08:21 | HHI.CCPN ---
Subjective Remarks/Hospital Course 04/12: 71-year-old male presents for evaluation after he fell hitting his head. Per family report they were in the bathroom trying to change his undergarments when he slipped and fell hitting his head. He is not on anticoagulant. The patient is pleasantly confused and patient's daughter states this is his baseline. He has had no altered mental status since the fall. No vomiting. The patient reports a mild headache without radiation. No neck pain or back pain. He has been ambulatory without difficulty since the fall. The CT head performed in the emergency department shows bilateral subdural hematomas in addition to parafalcine subdural hematoma, left frontal and temporal lobe intraparenchymal hemorrhages and subfalcine herniation from [id number]. 04/13: Resting in bed comfortably at the time of my evaluation this morning. Confused, does not know the year. Knows he is in the hospital. Moves all 4 extremity's. Does not appear to be in any acute distress. 04/14: Afebrile. The patient continues to be confused but easily following commands notable systolic ejection murmur, echo pending. Patient scheduled for neurosurgical intervention this afternoon. 04/15: Tmax 99.3. The patient status post craniotomy with evacuation of subdural hematoma last evening, remained intubated, only on sedation with propofol infusion and requiring low-dose phenylephrine to maintain map greater than 65. Sedation was briefly lightened last evening postoperatively, and the patient was extremely agitated. IV fluids changed from D5W to normal saline with [address] brain performed. INR pending. Objective Vital Signs Date Time Temp Pulse Resp B/P (MAP) Pulse Ox O2 Delivery O2 Flow Rate FiO2 04/15/17 06:00 45 04/15/17 05:48 100 04/15/17 05:23 11 04/15/17 04:00 99.1 83 104/56 (72) 116/51 (72) 04/14/17 22:00 Mechanical Ventilator Intake and Output 04/15/17 04/15/17 04/16/17 08:00 16:00 00:00 Intake Total 100 ml Output Total 870 ml Balance -770 ml Result Diagram: 04/15/17 0510 04/15/17 0510 Other Results Laboratory Tests Test 04/14/17 19:06 04/15/17 00:00 Blood Gas Puncture Site ART LINE ART LINE Blood Gas Patient Temperature 98.6 98.6 Blood Gas HCO3 20 mmol/L (22-26) 19 mmol/L (22-26) Blood Gas Base Excess -4.4 mmol/L (-2-2) -5.3 mmol/L (-2-2) Blood Gas Oxygen Saturation 97 % (90-100) 97 % (90-100) Arterial Blood pH 7.34 (7.380-7.420) 7.35 (7.380-7.420) Arterial Blood Partial Pressure CO2 39 mmHg (38-42) 35 mmHg (38-42) Arterial Blood Partial Pressure O2 261 mmHg (61-120) 246 mmHg (61-120) Arterial Blood Oxygen Content 18.8 Vol % (12.0-20.0) 16.1 Vol % (12.0-20.0) Arterial Blood Carboxyhemoglobin 1.2 % (0-4) 1.1 % (0-4) Arterial Blood Methemoglobin 1.5 % (0-2) 1.2 % (0-2) Blood Gas Hemoglobin 13.4 G/DL (12.0-16.0) 11.4 G/DL (12.0-16.0) Oxygen Delivery Device VENTILATOR VENTILATOR Blood Gas Ventilator Setting IN OR 10/700/10PS/5PEEP Blood Gas Inspired Oxygen 50 % 50 % Imaging Last [address] 04/12/17 0000 Signed Impressions: Service Date/Time: Wednesday, April 12, 2017 17:36 - CONCLUSION: Bilateral subdural hematomas in addition to parafalcine subdural hematoma, left frontal and temporal lobe intraparenchymal hemorrhages and subfalcine herniation from [id number]. Maria Guadalupe Alvarado MD Cervical Spine CT 04/12/17 0000 Signed Impressions: Service Date/Time: Wednesday, April 12, 2017 17:36 - CONCLUSION: Degenerative spondylosis without any significant compromise to the thecal sac or the exiting nerve roots. Maria Guadalupe Alvarado MD Objective Remarks GENERAL: Elderly gentleman intubated and sedated SKIN: Warm and dry. HEAD: Atraumatic. Normocephalic. EYES: Pupils equal and round. No scleral icterus. No injection or drainage. ENT: No nasal bleeding or discharge. Mucous membranes pink and moist. NECK: Trachea midline. No JVD. CARDIOVASCULAR: Regular rate and rhythm. 3/6 ROHAN RESPIRATORY: No accessory muscle use. Clear to auscultation. Breath sounds equal bilaterally. GASTROINTESTINAL: Abdomen soft, non-tender, nondistended. Hepatic and splenic margins not palpable. MUSCULOSKELETAL: Extremities without clubbing, cyanosis, or edema. No obvious deformities. NEUROLOGICAL: Awake and alert, PLEASANTLY CONFUSED BUT FOLLOWS COMMANDS WELL ( Preoperatively) No obvious cranial nerve deficits. Motor grossly within normal limits. Five out of 5 muscle strength in the arms and legs. Normal speech. Procedures 1/2-left frontoparietal craniotomy with evacuation of subacute on chronic SDH Urinary Catheter: Yes Munoz insert reason: Measure Accurate Output Date of Insertion: Apr 13, 2017 A/P Assessment and Plan TBI -Subdural hematoma S/P Left frontoparietal craniotomy with evacuation of subacute on chronic SDH -Neurosurgery following. Dr. Odom - Propofol infusion currently 50 mcgs/min for agitation. - Neuro checks per Neurosurgery recommendations. Patient to remain sedated postoperatively at this time - Repeat CT head per neurosurgery-left craniotomy with surgical drain. New diffuse subdural hematoma involving left side. Small subdural right frontal larger than prior. Reduction in MLS - Seizure prophylaxis with Keppra - Further management per neurosurgeon COPD - No exacerbation - No steroids indicated - DuoNeb scheduled and when necessary Dementia - Continue Aricept Hypertension - Valsartan 80 Mg Tab 80 Mg PO DAILY ( parameters to hold for SBP < 120mmHg) -1/2 EKG prolonged QT 475, continue close monitoring - Echo pending Psychosis - Trazodone - Zoloft Diabetes mellitus - Hold metformin while in the ICU - Insulin sliding scale Malnutrition -Change IV fluid to normal saline with 20 of KCl @ 42 cc/hr -Insert OGT - Dietary consult DVT GI prophylaxis - Teds SCDs - No pharmacological DVT prophylaxis due to subdural hematoma - Pepcid BID Further recommendations per neurosurgery. Dispo: my billing statement This patient remains critically ill with one or more organ systems which are or may become a threat to life. I have spent in excess of 39 minutes discontinuously in the care and management of this patient. This time is exclusive of procedures, and includes, but is not limited to, evaluation of the patient, review of the medical record, discussions with family, consultants, nursing staff, or respiratory therapy, and documentation in the medical record. Discussed with STRUCTURAL METAL WORKER at bedside Physician Meghan Antunez MD Apr 15, 2017 08:21
[2017-04-15] MEDS: NS + KCL 20 MEQ INJ 1,000 ML IV SCH (08:55)
[2017-04-15] MEDS: PRAVASTATIN SOD 40 MG TAB PO SCH (09:00)
[2017-04-15] MEDS: TOLTERODINE TARTRATE 4 MG CAP LA PO SCH (09:00)
[2017-04-15] MEDS: DOCUSATE SODIUM 50 MG/SENNA 8.6 MG TAB PO SCH ×2 (09:00→20:39)
[2017-04-15] MEDS: DOCUSATE SODIUM 100 MG CAP PO SCH ×2 (09:00→20:40)
[2017-04-15] MEDS: GABAPENTIN 400 MG CAP PO SCH ×3 (09:00→17:33)
[2017-04-15] MEDS: levETIRAcetam INJ 500 MG in SODIUM CHLORIDE 0.9% INJ 100 ML IV SCH ×2 (09:00→20:40)
[2017-04-15] MEDS: SERTRALINE HCL 50 MG TAB PO SCH (09:00)
[2017-04-15] MEDS: VALSARTAN 80 MG TAB PO SCH (09:00)
[2017-04-15] MEDS: SODIUM CHLORIDE 0.9% FLUSH 10 ML FLUSH IV FLUSH SCH ×2 (09:00→20:40)
--- NOTE | 2017-04-15 09:16 | HHI.NSPN ---
(Lacho Lacey Betsey JOSEPH) History Chief Complaint: Unable to obtain due to patient's clinical condition. (Lacho Lacey Betsey JOSEPH) Interval History 04/12: Mr. Hope is a 71-year-old male who presented to the emergency room today after he fell at home in the presence of his daughter. She states that he lost his balance while trying to put some close on, and fell and struck his head. There was no loss of consciousness. No seizure activity or nausea or emesis reported. The patient has baseline dementia and confusion, but no definite overall change in his mentation after the fall earlier today, according to his daughter, who he lives with. He presently has no complaint of headache. He does have some chronic neck and back pain. 04/13: The patient was examined in the presence of the family today and a more detailed history has been obtained. They indicate chronic progressive dementia to the point that the patient has had to move in with his daughter earlier this year. He cannot care for himself. He is usually quite confused, conversing with only a few words or short sentences and unable to stay on task with conversations. He is usually very active, fidgeting constantly. They state that his mental status today is not significantly changed from his overall baseline. He did go to [facility] due to some pressure sensation or frontal headaches and was diagnosed with sinus congestion. A CT scan of the head was not obtained. He has had no definite falls over the past few weeks up until yesterday. 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 Post-operatively he returned to [facility] for further care and monitoring. 04/15: This morning the patient is obtunded and has no sedation infusing. He does withdraw to noxious stimulation. He does not open his eyes but does have facial grimacing and turns his head to noxious stimulation. ADDENDUM at 1854: Patient was sedated with propofol 50 mcg/kg/min when seen, the pump was not visible at the time. BET. (Lacho Lacey) System Review Comments Unable to obtain due to patient's clinical condition. (Lacho Lacey) Exam Results 04/13/17 04/13/17 04/14/17 04/14/17 04/15/17 04/15/17 06:00 18:00 06:00 18:00 06:00 18:00 Intake Total 105 ml 1000 ml 1110 ml 3600 ml Output Total 1200 ml 925 ml 750 ml 2100 ml Balance 105 ml -200 ml 185 ml -750 ml 1500 ml Intake Oral 0 ml 60 ml IV Total 105 ml 1000 ml 1050 ml 600 ml Other 3000 ml Output Urine Total 1200 ml 925 ml 750 ml 1250 ml Drainage Total 250 ml Estimated Blood Loss 600 ml # Voids 1 3 50 # Bowel Movements 0 1 Vital Signs Date Time Temp Pulse Resp B/P (MAP) Pulse Ox O2 Delivery O2 Flow Rate FiO2 04/15/17 08:34 100 50 04/15/17 08:29 100 45 04/15/17 06:00 45 04/15/17 05:48 100 45 04/15/17 05:23 11 04/15/17 04:25 100 100 04/15/17 04:00 99.1 83 11 104/56 (72) 100 116/51 (72) 04/15/17 03:44 100 45 04/15/17 01:11 99 45 04/15/17 00:00 98.8 76 11 106/55 (72) 100 110/50 (70) 04/15/17 00:00 50 04/14/17 23:11 100 50 04/14/17 22:05 95 40 04/14/17 22:00 Mechanical Ventilator 40 04/14/17 22:00 99.3 86 19 178/76 (110) 100 179/78 (111) 04/14/17 22:00 105/66 04/14/17 21:50 50 04/14/17 21:50 100 100 04/14/17 21:45 68 15 157/65 (95) 100 Mechanical Ventilator 50 156/62 (93) 04/14/17 21:30 72 12 85/54 (64) 100 Mechanical Ventilator 50 98/48 (65) 04/14/17 21:18 91 75/52 04/14/17 21:15 91 16 75/52 (60) 100 Mechanical Ventilator 50 98/49 (65) 04/14/17 21:00 82 12 107/53 (71) 100 Mechanical Ventilator 50 105/56 (72) 04/14/17 20:45 66 12 116/56 (76) 100 Mechanical Ventilator 50 130/56 (80) 04/14/17 20:30 100 50 04/14/17 20:30 99.0 80 12 110/50 (70) 100 Mechanical Ventilator 50 87/57 (67) 04/14/17 20:30 50 04/14/17 17:00 65 17 113/56 (75) 97 04/14/17 16:45 63 17 107/56 (73) 94 04/14/17 16:30 71 17 88/54 (65) 94 04/14/17 15:49 97.9 76 17 116/58 (77) 96 04/14/17 14:00 60 04/14/17 12:00 98.5 51 13 172/79 (110) 99 04/14/17 12:00 50 04/14/17 10:00 50 04/14/17 08:00 99 Room Air 04/14/17 08:00 62 04/14/17 08:00 98.5 60 26 138/87 (104) 99 04/14/17 06:00 55 04/14/17 04:00 97.5 54 13 140/67 (91) 100 04/14/17 04:00 55 04/14/17 02:00 53 04/14/17 00:00 97.5 52 13 106/53 (70) 99 04/14/17 00:00 53 04/13/17 22:00 57 04/13/17 20:00 62 04/13/17 20:00 97.7 62 17 116/58 (77) 99 04/13/17 19:37 100 04/13/17 19:00 100 Room Air 04/13/17 18:00 56 04/13/17 16:00 67 04/13/17 16:00 98.5 67 18 108/56 (73) 100 04/13/17 14:00 82 04/13/17 12:00 98.2 80 22 114/56 (75) 95 04/13/17 12:00 80 04/13/17 10:00 68 04/13/17 08:52 99 21 04/13/17 08:00 58 04/13/17 08:00 98.7 58 15 127/100 (109) 99 04/13/17 07:00 98 Room Air 04/13/17 06:00 56 04/13/17 04:00 98.9 64 12 115/52 (73) 99 04/13/17 04:00 57 04/13/17 02:00 57 04/13/17 00:00 55 04/13/17 00:00 56 04/13/17 00:00 98.7 56 20 116/56 (76) 95 04/12/17 21:43 95 21 04/12/17 20:00 64 04/12/17 20:00 97.9 58 17 105/84 (91) 95 04/12/17 19:36 04/12/17 19:32 61 18 125/70 (88) 98 04/12/17 18:05 59 18 136/69 (91) 98 Room Air 04/12/17 17:14 97.9 71 16 109/68 (82) 96 (Lacho Lacey) Physical Examination GENERAL: Obtunded, intubated, no sedation. No apparent distress. ADDENDUM 04/15 at 1854: Patient was sedated with propofol 50 mcg/kg/min when seen, the pump was not visible at the time. BET. HEENT: Intact dressing to left posterior scalp w/sanguinous drainage noted, KWAME drains to bulb suction x2 w/sanguinous drainage. PERRLA 2mm brisk. Orally intubated. OGT. MUSCULOSKELETAL: No clubbing or deformity evident. NEUROLOGICAL: Obtunded, no sedation. ADDENDUM at 1854: Patient was sedated with propofol 50 mcg/kg/min when seen, the pump was not visible at the time. BET. No eye opening to voice or noxious stimulation. Facial grimacing and moves head to noxious stimulation. Withdraws extremities to local and central noxious stimulation to varying degrees. (Lacho Lacey) Lab, Micro, Other Results Recent Impressions Head CT 04/15/17 0600 Signed Impressions: Service Date/Time: Saturday, April 15, 2017 04:27 - CONCLUSION: 1. Interval left craniotomy with surgical drain placement. There is new diffuse subdural hematoma involving the left side beneath the craniotomy bone despite surgical drain placement. 2. Small subdural hemorrhage along the right frontal region. This is slightly larger from the prior study. 3. Reduction in size the midline shift. Da Ramirez Jr., MD Head CT 04/13/17 0800 Signed Impressions: Service Date/Time: Thursday, April 13, 2017 09:59 - CONCLUSION: 1. Large left subdural hematoma which is unchanged from the prior exam. There continues to be 1.2 cm of left to right midline shift. 2. Smaller right frontal subdural hematoma measuring 6 mm. Juan Carlos Olivarez MD Laboratory Tests Test 04/12/17 18:00 04/12/17 20:16 04/12/17 20:51 04/13/17 01:43 White Blood Count 5.6 TH/MM3 7.1 TH/MM3 Red Blood Count 4.60 MIL/MM3 4.44 MIL/MM3 Hemoglobin 13.4 GM/DL 13.4 GM/DL Hematocrit 40.2 % 39.1 % Mean Corpuscular Volume 87.4 FL 88.1 FL Mean Corpuscular Hemoglobin 29.1 PG 30.3 PG Mean Corpuscular Hemoglobin Concent 33.4 % 34.4 % Red Cell Distribution Width 14.0 % 14.8 % Platelet Count 245 TH/MM3 219 TH/MM3 Mean Platelet Volume 7.1 FL 7.5 FL Neutrophils (%) (Auto) 77.0 % 72.7 % Lymphocytes (%) (Auto) 13.8 % 15.8 % Monocytes (%) (Auto) 6.4 % 9.1 % Eosinophils (%) (Auto) 2.2 % 1.9 % Basophils (%) (Auto) 0.6 % 0.5 % Neutrophils # (Auto) 4.3 TH/MM3 5.2 TH/MM3 Lymphocytes # (Auto) 0.8 TH/MM3 1.1 TH/MM3 Monocytes # (Auto) 0.4 TH/MM3 0.6 TH/MM3 Eosinophils # (Auto) 0.1 TH/MM3 0.1 TH/MM3 Basophils # (Auto) 0.0 TH/MM3 0.0 TH/MM3 CBC Comment DIFF FINAL DIFF FINAL Differential Comment Prothrombin Time 10.8 SEC 11.1 SEC Prothromb Time International Ratio 1.1 RATIO 1.1 RATIO Activated Partial Thromboplast Time 26.8 SEC 27.0 SEC Blood Urea Nitrogen 20 MG/DL 18 MG/DL Creatinine 1.00 MG/DL 0.86 MG/DL Random Glucose 215 MG/DL 118 MG/DL Total Protein 6.9 GM/DL 6.6 GM/DL Albumin 3.6 GM/DL 3.5 GM/DL Calcium Level 8.9 MG/DL 8.7 MG/DL Alkaline Phosphatase 68 U/L 54 U/L Aspartate Amino Transf (AST/SGOT) 14 U/L 14 U/L Alanine Aminotransferase (ALT/SGPT) 15 U/L 17 U/L Total Bilirubin 0.6 MG/DL 0.5 MG/DL Sodium Level 137 MEQ/L 142 MEQ/L Potassium Level 3.9 MEQ/L 3.6 MEQ/L Chloride Level 101 MEQ/L 108 MEQ/L Carbon Dioxide Level 30.5 MEQ/L 28.5 MEQ/L Anion Gap 6 MEQ/L 6 MEQ/L Estimat Glomerular Filtration Rate 74 ML/MIN 88 ML/MIN Lipase 161 U/L Nasal Screen MRSA (PCR) MRSA NOT DETECTED Troponin I LESS THAN 0.02 NG/ML 0.02 NG/ML Phosphorus Level 3.8 MG/DL Magnesium Level 1.8 MG/DL Test 04/14/17 03:20 04/14/17 19:06 04/14/17 19:30 04/15/17 00:00 White Blood Count 5.0 TH/MM3 9.8 TH/MM3 Red Blood Count 4.29 MIL/MM3 4.31 MIL/MM3 Hemoglobin 13.2 GM/DL 12.7 GM/DL Hematocrit 37.6 % 38.1 % Mean Corpuscular Volume 87.8 FL 88.5 FL Mean Corpuscular Hemoglobin 30.9 PG 29.5 PG Mean Corpuscular Hemoglobin Concent 35.2 % 33.4 % Red Cell Distribution Width 14.8 % 14.4 % Platelet Count 182 TH/MM3 268 TH/MM3 Mean Platelet Volume 8.1 FL 7.6 FL Neutrophils (%) (Auto) 78.9 % 83.6 % Lymphocytes (%) (Auto) 11.0 % 6.9 % Monocytes (%) (Auto) 8.3 % 7.9 % Eosinophils (%) (Auto) 1.4 % 1.1 % Basophils (%) (Auto) 0.4 % 0.5 % Neutrophils # (Auto) 3.9 TH/MM3 8.2 TH/MM3 Lymphocytes # (Auto) 0.5 TH/MM3 0.7 TH/MM3 Monocytes # (Auto) 0.4 TH/MM3 0.8 TH/MM3 Eosinophils # (Auto) 0.1 TH/MM3 0.1 TH/MM3 Basophils # (Auto) 0.0 TH/MM3 0.0 TH/MM3 CBC Comment DIFF FINAL DIFF FINAL Differential Comment Hematology Comments Blood Urea Nitrogen 14 MG/DL 12 MG/DL Creatinine 0.82 MG/DL 0.79 MG/DL Random Glucose 110 MG/DL 130 MG/DL Total Protein 6.4 GM/DL Albumin 3.4 GM/DL Calcium Level 8.3 MG/DL 7.9 MG/DL Alkaline Phosphatase 49 U/L Aspartate Amino Transf (AST/SGOT) 15 U/L Alanine Aminotransferase (ALT/SGPT) 12 U/L Total Bilirubin 0.6 MG/DL Sodium Level 144 MEQ/L 142 MEQ/L Potassium Level 3.8 MEQ/L 3.8 MEQ/L Chloride Level 109 MEQ/L 110 MEQ/L Carbon Dioxide Level 26.9 MEQ/L 21.3 MEQ/L Anion Gap 8 MEQ/L 11 MEQ/L Estimat Glomerular Filtration Rate 93 ML/MIN 97 ML/MIN Blood Gas Puncture Site ART LINE ART LINE Blood Gas Patient Temperature 98.6 98.6 Blood Gas HCO3 20 mmol/L 19 mmol/L Blood Gas Base Excess -4.4 mmol/L -5.3 mmol/L Blood Gas Oxygen Saturation 97 % 97 % Arterial Blood pH 7.34 7.35 Arterial Blood Partial Pressure CO2 39 mmHg 35 mmHg Arterial Blood Partial Pressure O2 261 mmHg 246 mmHg Arterial Blood Oxygen Content 18.8 Vol % 16.1 Vol % Arterial Blood Carboxyhemoglobin 1.2 % 1.1 % Arterial Blood Methemoglobin 1.5 % 1.2 % Blood Gas Hemoglobin 13.4 G/DL 11.4 G/DL Oxygen Delivery Device VENTILATOR VENTILATOR Blood Gas Ventilator Setting IN OR /10PS/5PEEP Blood Gas Inspired Oxygen 50 % 50 % Prothrombin Time 11.4 SEC Prothromb Time International Ratio 1.1 RATIO Activated Partial Thromboplast Time 30.0 SEC Fibrinogen 346 mg/dL Magnesium Level 1.8 MG/DL Test 04/15/17 05:10 White Blood Count 9.5 TH/MM3 Red Blood Count 3.72 MIL/MM3 Hemoglobin 11.5 GM/DL Hematocrit 32.7 % Mean Corpuscular Volume 87.8 FL Mean Corpuscular Hemoglobin 30.8 PG Mean Corpuscular Hemoglobin Concent 35.1 % Red Cell Distribution Width 14.8 % Platelet Count 234 TH/MM3 Mean Platelet Volume 7.6 FL Blood Urea Nitrogen 12 MG/DL Creatinine 0.86 MG/DL Random Glucose 181 MG/DL Calcium Level 7.7 MG/DL Sodium Level 140 MEQ/L Potassium Level 3.7 MEQ/L Chloride Level 109 MEQ/L Carbon Dioxide Level 23.3 MEQ/L Anion Gap 8 MEQ/L Estimat Glomerular Filtration Rate 88 ML/MIN (Lacho Lacey) Medical Decision Making Impression and Plan Impression: 1. 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 Dementia 4. Cardiac murmur Patient obtunded, no sedation, does withdraw to noxious stimulation. ADDENDUM at 1854: Patient was sedated with propofol 50 mcg/kg/min when seen, the pump was not visible at the time. BET. Reviewed labs for today. Interval worsening of anaemia. INR 1.1. Sodium 140. Decrease in renal function. CT brain this morning demonstrates interval left craniotomy with drain placement. New diffuse left-sided SDH under craniotomy bone. Slight increase in the right frontal SDH. Reduction in the midline shift. KWAME drain output is 180 mL for #1 and 70 mL for #2 since surgery as of this morning. POD #1 () s/p: Left frontoparietal craniotomy for evacuation of subacute on chronic subdural hematoma Postoperative Diagnosis: (1) Subdural hematoma, chronic (2) Acute subdural hematoma 1. Left hemisphere subacute on chronic subdural hematoma 2. Acute right frontal subdural hematoma Plan: Primary management per Retort Furnace Operator. Neuro checks. Repeat CT brain for any decline in neuro status. Monitor KWAME drain output. Mechanical DVT prophylaxis. Hold pharmacologic DVT prophylaxis. Stress ulcer prophylaxis. (Lacho Lacey) Attending Statement The exam, history, and the medical decision-making described in the above note were completed with the assistance of the mid-level provider. I reviewed and agree with the findings presented. I attest that I had a [id number] encounter with the patient on the same day, and personally performed and documented my assessment and findings in the medical record. On examination today the patient is intubated and sedated. Positive facial grimacing to deep pain Spontaneous movement in all extremities as well as to deep pain Pupils are 3 mm mildly reactive. Mildly disconjugate spontaneous extraocular movements CT scan head 04/15/2017 reveals moderate recurrent left hemisphere subdural hematoma but significant improvement in mass effect now approximately 5 mm midline shift from left to right versus 11-12 mm preoperative. Relatively stable right frontal subdural hematoma without significant mass effect. Discussed with the patient's family in the room. Continue drains of present Anticipate return to the OR next week for removal of recurrent subdural hematoma once patient has had a chance to stabilize from initial surgery and improve platelet function following discontinuation of aspirin. Continue ventilatory support at present Non-chemical DVT prophylaxis Seizure prophylaxis-Monse (Sylvester Odom MD) Lacho Lacey Apr 15, 2017 09:16 Sylvester Odom MD Apr 15, 2017 21:04
[2017-04-15 10:08] LABS: INTERNATIONAL NORMALIZED RATIO 1.1 RATIO; PROTHROMBIN TIME - PATIENT 11.4 SEC (9.8-11.6)
[2017-04-15] MEDS: FAMOTIDINE 20 MG/2 ML VIAL IV PUSH SCH ×2 (11:28→20:40)
[2017-04-15] MEDS: INSULIN ASPART SUPPLEMENTAL SCALE SQ SCH ×3 (11:52→21:00)
[2017-04-15] MEDS: DONEPEZIL HCL 5 MG TAB PO SCH (20:39)
[2017-04-15 23:17] LABS: BICARBONATE 22.7 MEQ/L (21.0-32.0); CALCIUM 7.6 MG/DL (8.5-10.1); CREATININE 0.68 MG/DL (0.60-1.30); MAGNESIUM 1.8 MG/DL (1.5-2.5)
[2017-04-16] VITALS (16 sets, daily range): BP systolic 128–146; BP diastolic 41–60; PULSE 75–130; RESP 16–20; TEMP 98.9–101.6; O2SAT 97–100
[2017-04-16] MEDS ORDERED: POTASSIUM CHLOR 20 MEQ PREMIX 100 ML IV PRN ×2 (00:30)
[2017-04-16] MEDS ORDERED: POTASSIUM PHOSPHATE INJ 30 MMOL in SODIUM CHLOR 0.9% 250 ML INJ 250 ML IV PRN (00:30)
[2017-04-16] MEDS ORDERED: POTASSIUM CHLOR 40 MEQ PREMIX 100 ML IV PRN ×2 (00:30)
[2017-04-16] MEDS ORDERED: POTASSIUM PHOSPHATE MONOBASIC 500 MG TAB PO PRN (00:30)
[2017-04-16] MEDS ORDERED: MAGNESIUM SULFATE INJ 4 GM in SODIUM CHLORIDE 0.9% INJ 92 ML IV PRN (00:30)
[2017-04-16] MEDS ORDERED: MAGNESIUM OXIDE 400 MG TAB PO PRN (00:30)
[2017-04-16] MEDS ORDERED: MAGNESIUM SULFATE INJ 2 GM in SODIUM CHLORIDE 0.9% INJ 96 ML IV PRN (00:30)
[2017-04-16] MEDS ORDERED: POTASSIUM CHLORIDE 25 MEQ EFFERVESCENT TAB PO PRN (00:30)
[2017-04-16] MEDS: PROPOFOL 1000 MG/100 ML IV PRN ×4 (02:35→14:12)
[2017-04-16] MEDS: RESP: ALBUTEROL 2.5 MG/IPRATROPIUM 0.5 MG NEB (SCH) INH ×3 (03:32→15:12)
[2017-04-16] MEDS: MORPHINE SULFATE 2 MG/ML INJ IV PRN (03:47)
[2017-04-16] MEDS: CHLORHEXIDINE GLUCONATE 2 % 1 PACK (2 CLOTHS) TOP SCH (04:00)
[2017-04-16 05:25] LABS: HEMATOCRIT 29.3 % (39.0-51.0); HEMOGLOBIN 10.2 GM/DL (13.0-17.0); MEAN CELL VOLUME 87.8 FL (80.0-100.0); MEAN CORPUSCULAR HEMOGLOBIN 30.4 PG (27.0-34.0); MEAN CORPUSCULAR HGB CONC 34.7 % (32.0-36.0); MEAN PLATELET VOLUME 7.4 FL (7.0-11.0); PLATELET COUNT 167 TH/MM3 (150-450); RED BLOOD COUNT 3.34 MIL/MM3 (4.50-5.90); RED CELL DISTRIBUTION WIDTH 14.8 % (11.6-17.2)
[2017-04-16 05:47] LABS: BICARBONATE 22.5 MEQ/L (21.0-32.0); CALCIUM 7.8 MG/DL (8.5-10.1); CREATININE 0.71 MG/DL (0.60-1.30); MAGNESIUM 1.8 MG/DL (1.5-2.5)
[2017-04-16 05:58] LABS: PHOSPHORUS 3.2 MG/DL (2.5-4.9)
--- NOTE | 2017-04-16 06:03 | RADRPT ---
EXAM DATE/TIME: 04/16/2017 04:50 [facility] COMPARISON: No previous studies available for comparison. INDICATIONS : Respiratory failure. MEDICAL HISTORY : None. SURGICAL HISTORY : None. ENCOUNTER: Initial ACUITY: 4 - 6 days PAIN SCORE: Non-responsive. LOCATION: Bilateral chest FINDINGS: A single portable frontal view of the chest shows an endotracheal tube with the tip 5 cm proximal to wilfred. Nasogastric tube courses off the inferior margin of the film. Heart is normal in size. Lungs are clear. No infiltrates or effusions. CONCLUSION: Lines and tubes. Clear lungs. Da Ramirez Jr., MD on April 16, 2017 at 6:01 Board Certified Radiologist. This report was verified electronically.
[2017-04-16] MEDS: NS + KCL 20 MEQ INJ 1,000 ML IV SCH (06:13)
--- NOTE | 2017-04-16 07:56 | HHI.CCPN ---
Subjective Remarks/Hospital Course 04/12: 71-year-old male presents for evaluation after he fell hitting his head. Per family report they were in the bathroom trying to change his undergarments when he slipped and fell hitting his head. He is not on anticoagulant. The patient is pleasantly confused and patient's daughter states this is his baseline. He has had no altered mental status since the fall. No vomiting. The patient reports a mild headache without radiation. No neck pain or back pain. He has been ambulatory without difficulty since the fall. The CT head performed in the emergency department shows bilateral subdural hematomas in addition to parafalcine subdural hematoma, left frontal and temporal lobe intraparenchymal hemorrhages and subfalcine herniation from [id number]. 04/13: Resting in bed comfortably at the time of my evaluation this morning. Confused, does not know the year. Knows he is in the hospital. Moves all 4 extremity's. Does not appear to be in any acute distress. 04/14: Afebrile. The patient continues to be confused but easily following commands notable systolic ejection murmur, echo pending. Patient scheduled for neurosurgical intervention this afternoon. 04/15: Tmax 99.3. The patient status post craniotomy with evacuation of subdural hematoma last evening, remained intubated, only on sedation with propofol infusion and requiring low-dose phenylephrine to maintain map greater than 65. Sedation was briefly lightened last evening postoperatively, and the patient was extremely agitated. IV fluids changed from D5W to normal saline with [address] brain performed. INR pending. 04/16: Tmax 99.8 Patient agitated during the night , swinging his legs out of the bed while on maximum doses of propofol infusion, fentanyl infusion low-dose added this a.m. Patient's diet advance will begin tube feeds this a.m. The patient was noted to have multifocal PVCs intermittent during the night potassium level III.2 currently being repleted with K-Phos. Objective Vital Signs Date Time Temp Pulse Resp B/P (MAP) Pulse Ox O2 Delivery O2 Flow Rate FiO2 04/16/17 06:00 85 04/16/17 06:00 30 04/16/17 04:00 98.9 20 100 146/52 (83) 04/15/17 19:00 Mechanical Ventilator Intake and Output 04/16/17 04/16/17 04/16/17 07:59 15:59 23:59 Intake Total 1510 ml Output Total 1235 ml Balance 275 ml Result Diagram: 04/16/170 04/16/17 044 Other Results Laboratory Tests Test 04/15/17 14:04 04/16/17 05:44 Blood Gas Puncture Site ART LINE IRINA Blood Gas Patient Temperature 98.6 98.6 Blood Gas HCO3 22 mmol/L (22-26) 23 mmol/L (22-26) Blood Gas Base Excess -1.3 mmol/L (-2-2) -0.9 mmol/L (-2-2) Blood Gas Oxygen Saturation 97 % (90-100) 97 % (90-100) Arterial Blood pH 7.43 (7.380-7.420) 7.45 (7.380-7.420) Arterial Blood Partial Pressure CO2 34 mmHg (38-42) 33 mmHg (38-42) Arterial Blood Partial Pressure O2 232 mmHg (61-120) 215 mmHg (61-120) Arterial Blood Oxygen Content 14.5 Vol % (12.0-20.0) 13.7 Vol % (12.0-20.0) Arterial Blood Carboxyhemoglobin 1.2 % (0-4) 1.2 % (0-4) Arterial Blood Methemoglobin 1.3 % (0-2) 1.2 % (0-2) Blood Gas Hemoglobin 10.2 G/DL (12.0-16.0) 9.6 G/DL (12.0-16.0) Oxygen Delivery Device VENTILATOR VENTILATOR Blood Gas Ventilator Setting AC/RR14/VT550/PEEP5 AC/16/550/PEEP5 Blood Gas Inspired Oxygen 50 % 50 % Imaging Last Impressions Chest X-Ray 04/16/17599 Signed Impressions: Service Date/Time: April 04:50 - CONCLUSION: Lines and tubes. Clear lungs. Da Ramirez Jr., MD Head CT 04/15/17599 Signed Impressions: Service Date/Time: Saturday, April 15, 2017 04:27 - CONCLUSION: 1. Interval left craniotomy with surgical drain placement. There is new diffuse subdural hematoma involving the left side beneath the craniotomy bone despite surgical drain placement. 2. Small subdural hemorrhage along the right frontal region. This is slightly larger from the prior study. 3. Reduction in size the midline shift. Da Ramirez Jr., MD Cervical Spine CT 04/12/17 0000 Signed Impressions: Service Date/Time: Wednesday, April 12, 2017 17:36 - CONCLUSION: Degenerative spondylosis without any significant compromise to the thecal sac or the exiting nerve roots. Maria Guadalupe Alvarado MD Last [address] 04/12/17 0000 Signed Impressions: Service Date/Time: Wednesday, April 12, 2017 17:36 - CONCLUSION: Bilateral subdural hematomas in addition to parafalcine subdural hematoma, left frontal and temporal lobe intraparenchymal hemorrhages and subfalcine herniation from [id number]. Maria Guadalupe Alvarado MD Cervical Spine CT 04/12/17 0000 Signed Impressions: Service Date/Time: Wednesday, April 12, 2017 17:36 - CONCLUSION: Degenerative spondylosis without any significant compromise to the thecal sac or the exiting nerve roots. Maria Guadalupe Alvarado MD Objective Remarks GENERAL: Elderly gentleman intubated and sedated SKIN: Warm and dry. HEAD: Atraumatic. Normocephalic. 2 KWAME drains serosanguineous fluid EYES: Pupils equal and round. No scleral icterus. No injection or drainage. ENT: No nasal bleeding or discharge. Mucous membranes pink and moist. NECK: Trachea midline. No JVD. CARDIOVASCULAR: Regular rate and rhythm. 3/6 ROHAN RESPIRATORY: No accessory muscle use. Clear to auscultation. Breath sounds equal bilaterally. GASTROINTESTINAL: Abdomen soft, non-tender, nondistended. Hepatic and splenic margins not palpable. MUSCULOSKELETAL: Extremities without clubbing, cyanosis, or edema. No obvious deformities. NEUROLOGICAL: Awake and alert, PLEASANTLY CONFUSED BUT FOLLOWS COMMANDS WELL ( Preoperatively) No obvious cranial nerve deficits. Motor grossly within normal limits. Five out of 5 muscle strength in the arms and legs. Normal speech. Procedures 1/2-left frontoparietal craniotomy with evacuation of subacute on chronic SDH Date of Insertion: Apr 13, 2017 A/P Assessment and Plan TBI -Subdural hematoma S/P Left frontoparietal craniotomy with evacuation of subacute on chronic SDH -Neurosurgery following. Dr. Odom - Propofol infusion currently 50 mcgs/min for agitation. 1/4 fentanyl low- dose infusion added to maintain ventilator synchrony - Neuro checks per Neurosurgery recommendations. Patient to remain sedated postoperatively at this time - Repeat CT head per neurosurgery-left craniotomy with surgical drain. New diffuse subdural hematoma involving left side. Small subdural right frontal larger than prior. Reduction in MLS - Seizure prophylaxis with Keppra - Further management per neurosurgeon-possible return to OR next week for repeat removal of recurrent subdural hematoma when platelet function normalizes COPD - No exacerbation - No steroids indicated - DuoNeb scheduled and when necessary Dementia - Continue Aricept Hypertension - Valsartan 80 Mg Tab 80 Mg PO DAILY ( parameters to hold for SBP < 120mmHg) -1/2 EKG prolonged QT 475, continue close monitoring - Echo pending Psychosis - Trazodone -on hold - Zoloft Diabetes mellitus - Hold metformin while in the ICU - Insulin sliding scale Malnutrition -normal saline with 20 of KCl @ 42 cc/hr -Insert OGT - Begin tube feeds Glucerna 1.5 DVT GI prophylaxis - Teds SCDs - No pharmacological DVT prophylaxis due to subdural hematoma - Pepcid BID Further recommendations per neurosurgery. Dispo: my billing statement This patient remains critically ill with one or more organ systems which are or may become a threat to life. I have spent in excess of 30 minutes discontinuously in the care and management of this patient. This time is exclusive of procedures, and includes, but is not limited to, evaluation of the patient, review of the medical record, discussions with family, consultants, nursing staff, or respiratory therapy, and documentation in the medical record. Discussed with CLINICAL MARKETING MANAGER at bedside (Melany) Physician Meghan Antunez MD Apr 16, 2017 07:56
--- NOTE | 2017-04-16 07:59 | ECHRPT ---
Indication: CARDIOMYOPATHY CONCLUSIONS Normal left ventricular size. Severe concentric left ventricular hypertrophy. The left ventricular systolic function is low normal with an estimated ejection fraction in the rang e of 50- 55%. Trace aortic valve regurgitation. Severe aortic valve stenosis. Moderate thickening of the aortic valve leaflets. Aortic valve mean gradient is 44 mmHg. BP: 140 / 67 HR: 55 Rhythm: MEASUREMENTS (Male / Female) Normal Values Technical Quality:Good 2D ECHO LV Diastolic Diameter PLAX 4.2 cm 4.2 - 5.9 / 3.9 - 5.3 cm LV Systolic Diameter PLAX 3.3 cm IVS Diastolic Thickness 1.0 cm 0.6 - 1.0 / 0.6 - 0.9 cm LVPW Diastolic Thickness 0.7 cm 0.6 - 1.0 / 0.6 - 0.9 cm LV Relative Wall Thickness 0.4 DOPPLER AV Peak Velocity 481.0 cm/s AV Peak Gradient 92.5 mmHg AV Mean Gradient 44.0 mmHg AV Velocity Time Integral 97.3 cm LVOT Peak Velocity 83.9 cm/s LVOT Peak Gradient 2.8 mmHg Mitral E Point Velocity 80.0 cm/s Mitral A Point Velocity 95.8 cm/s Mitral E to A Ratio 0.8 TR Peak Velocity 254.0 cm/s TR Peak Gradient 25.8 mmHg Right Atrial Pressure 10.0 mmHg Pulmonary Artery Systolic Pressu 35.8 mmHg Right Ventricular Systolic Press 35.8 mmHg FINDINGS LEFT VENTRICLE Normal left ventricular size. Severe concentric left ventricular hypertrophy. The left ventricular systolic function is low normal with an estimated ejection fraction in the rang e of 50- 55%. RIGHT VENTRICLE Normal right ventricular size and systolic function. LEFT ATRIUM The left atrial size is normal. RIGHT ATRIUM The right atrial size is normal. ATRIAL SEPTUM Normal atrial septal thickness without atrial level shunting by limited color doppler interrogation. AORTA The aortic root and proximal ascending aorta are normal in size on limited imaging. MITRAL VALVE Structurally normal mitral valve. No mitral valve stenosis or regurgitation. AORTIC VALVE Trace aortic valve regurgitation. Severe aortic valve stenosis. Aortic valve mean gradient is 44 mmHg. Moderate thickening of the aortic valve leaflets. TRICUSPID VALVE Structurally normal tricuspid valve. No tricuspid valve stenosis or regurgitation. PULMONARY VALVE No pulmonary valve regurgitation or stenosis. VESSELS The inferior vena cava is normal in size. PERICARDIUM No pericardial effusion. Cooper Mac MD (Electronically Signed) Final Date:16 April 2017 07:58
[2017-04-16] MEDS: INSULIN ASPART SUPPLEMENTAL SCALE SQ SCH ×4 (08:00→21:00)
[2017-04-16] MEDS: SODIUM CHLORIDE 0.9% FLUSH 10 ML FLUSH IV FLUSH SCH ×2 (08:10→21:00)
[2017-04-16] MEDS: levETIRAcetam INJ 500 MG in SODIUM CHLORIDE 0.9% INJ 100 ML IV SCH ×2 (09:00→20:29)
[2017-04-16] MEDS: VALSARTAN 80 MG TAB PO SCH (09:29)
[2017-04-16] MEDS: GABAPENTIN 400 MG CAP PO SCH ×3 (09:29→17:43)
[2017-04-16] MEDS: PRAVASTATIN SOD 40 MG TAB PO SCH (09:29)
[2017-04-16] MEDS: TOLTERODINE TARTRATE 4 MG CAP LA PO SCH (09:29)
[2017-04-16] MEDS: DOCUSATE SODIUM 50 MG/SENNA 8.6 MG TAB PO SCH ×2 (09:30→20:09)
[2017-04-16] MEDS: SERTRALINE HCL 50 MG TAB PO SCH (09:30)
[2017-04-16] MEDS: FAMOTIDINE 20 MG/2 ML VIAL IV PUSH SCH ×2 (09:30→20:09)
[2017-04-16] MEDS: fentaNYL DRIP 250 ML IV PRN (09:31)
--- NOTE | 2017-04-16 09:50 | HHI.NSPN ---
(Lacho Lacey Betsey JOSEPH) History Chief Complaint: Unable to obtain due to patient's clinical condition. (Lacho Lacey AREA FIELD PERSON) Interval History 04/12: Mr. Hope is a 71-year-old male who presented to the emergency room today after he fell at home in the presence of his daughter. She states that he lost his balance while trying to put some close on, and fell and struck his head. There was no loss of consciousness. No seizure activity or nausea or emesis reported. The patient has baseline dementia and confusion, but no definite overall change in his mentation after the fall earlier today, according to his daughter, who he lives with. He presently has no complaint of headache. He does have some chronic neck and back pain. 04/13: The patient was examined in the presence of the family today and a more detailed history has been obtained. They indicate chronic progressive dementia to the point that the patient has had to move in with his daughter earlier this year. He cannot care for himself. He is usually quite confused, conversing with only a few words or short sentences and unable to stay on task with conversations. He is usually very active, fidgeting constantly. They state that his mental status today is not significantly changed from his overall baseline. He did go to the emergency room a couple of weeks ago at [facility] due to some pressure sensation or frontal headaches and was diagnosed with sinus congestion. A CT scan of the head was not obtained. He has had no definite falls over the past few weeks up until yesterday. 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 Post-operatively he returned to [facility] for further care and monitoring. 04/15: This morning the patient is obtunded and has no sedation infusing. He does withdraw to noxious stimulation. He does not open his eyes but does have facial grimacing and turns his head to noxious stimulation. ADDENDUM at 1854: Patient was sedated with propofol 50 mcg/kg/min when seen, the pump was not visible at the time. BET. 04/16: When seen the patient is obtunded but does have the propofol drip infusing. Nursing reports that he moves all extremities but does become agitated when the propofol is weaned down. He moves all extremities to noxious stimulation when seen but did not follow any commands. (Lacho Lacey) System Review Comments Unable to obtain due to patient's clinical condition. (Lacho Lacey) Exam Results 04/14/17 04/14/17 04/15/17 04/15/17 04/16/17 04/16/17 06:00 18:00 06:00 18:00 06:00 18:00 Intake Total 1110 ml 3600 ml 900 ml 1610 ml Output Total 925 ml 750 ml 2100 ml 830 ml 1235 ml Balance 185 ml -750 ml 1500 ml 70 ml 375 ml Intake Oral 60 ml IV Total 1050 ml 600 ml 900 ml 1610 ml Other 3000 ml Output Urine Total 925 ml 750 ml 1250 ml 750 ml 1200 ml Drainage Total 250 ml 80 ml 35 ml Estimated Blood Loss 600 ml # Voids 50 # Bowel Movements 1 0 1 Vital Signs Date Time Temp Pulse Resp B/P (MAP) Pulse Ox O2 Delivery O2 Flow Rate FiO2 04/16/17 09:04 100 30 04/16/17 08:00 75 04/16/17 08:00 99.6 75 16 100 134/51 (78) 04/16/17 08:00 30 04/16/17 07:00 100 Mechanical Ventilator 30 04/16/17 06:00 85 04/16/17 06:00 30 04/16/17 04:00 50 04/16/17 04:00 98.9 80 20 100 146/52 (83) 04/16/17 04:00 80 04/16/17 03:32 100 50 04/16/17 02:00 80 04/16/17 00:00 50 04/16/17 00:00 81 04/16/17 00:00 99.0 81 16 100 129/41 (70) 04/15/17 22:00 90 04/15/17 20:05 100 45 04/15/17 20:00 99.8 96 16 100 140/58 (85) 04/15/17 20:00 96 04/15/17 20:00 50 04/15/17 19:00 100 Mechanical Ventilator 50 04/15/17 18:00 93 04/15/17 16:00 82 04/15/17 16:00 50 04/15/17 16:00 99.5 88 16 100 146/67 (93) 04/15/17 15:15 100 50 04/15/17 14:00 79 04/15/17 12:00 87 04/15/17 12:00 50 04/15/17 12:00 99.5 86 14 100 114/51 (72) 04/15/17 11:20 100 50 04/15/17 10:00 87 04/15/17 08:34 100 50 04/15/17 08:29 100 45 04/15/17 08:00 98.1 88 14 100 126/66 (86) 04/15/17 08:00 50 04/15/17 08:00 88 04/15/17 07:00 Mechanical Ventilator 45 04/15/17 06:00 45 04/15/17 05:48 100 45 04/15/17 05:23 11 04/15/17 04:25 100 100 04/15/17 04:00 99.1 83 11 104/56 (72) 100 116/51 (72) 04/15/17 03:44 100 45 04/15/17 01:11 99 45 04/15/17 00:00 98.8 76 11 106/55 (72) 100 110/50 (70) 04/15/17 00:00 50 04/14/17 23:11 100 50 04/14/17 22:05 95 40 04/14/17 22:00 Mechanical Ventilator 40 04/14/17 22:00 99.3 86 19 178/76 (110) 100 179/78 (111) 04/14/17 22:00 105/66 04/14/17 21:50 50 04/14/17 21:50 100 100 04/14/17 21:45 68 15 157/65 (95) 100 Mechanical Ventilator 50 156/62 (93) 04/14/17 21:30 72 12 85/54 (64) 100 Mechanical Ventilator 50 98/48 (65) 04/14/17 21:18 91 75/52 18 21:15 91 16 75/52 (60) 100 Mechanical Ventilator 50 98/49 (65) 04/14/17 21:00 82 12 107/53 (71) 100 Mechanical Ventilator 50 105/56 (72) 04/14/17 20:45 66 12 116/56 (76) 100 Mechanical Ventilator 50 130/56 (80) 04/14/17 20:30 100 50 04/14/17 20:30 99.0 80 12 110/50 (70) 100 Mechanical Ventilator 50 87/57 (67) 04/14/17 20:30 50 04/14/17 17:00 65 17 113/56 (75) 97 04/14/17 16:45 63 17 107/56 (73) 94 04/14/17 16:30 71 17 88/54 (65) 94 04/14/17 15:49 97.9 76 17 116/58 (77) 96 04/14/17 14:00 60 04/14/17 12:00 98.5 51 13 172/79 (110) 99 04/14/17 12:00 50 04/14/17 10:00 50 04/14/17 08:00 99 Room Air 04/14/17 08:00 62 04/14/17 08:00 98.5 60 26 138/87 (104) 99 04/14/17 06:00 55 04/14/17 04:00 97.5 54 13 140/67 (91) 100 04/14/17 04:00 55 04/14/17 02:00 53 04/14/17 00:00 97.5 52 13 106/53 (70) 99 04/14/17 00:00 53 04/13/17 22:00 57 04/13/17 20:00 62 04/13/17 20:00 97.7 62 17 116/58 (77) 99 04/13/17 19:37 100 04/13/17 19:00 100 Room Air 04/13/17 18:00 56 04/13/17 16:00 67 04/13/17 16:00 98.5 67 18 108/56 (73) 100 04/13/17 14:00 82 04/13/17 12:00 98.2 80 22 114/56 (75) 95 04/13/17 12:00 80 04/13/17 10:00 68 (Lacho Lacey) Physical Examination GENERAL: Obtunded with propofol 50 mcg/kg/min for sedation. No apparent distress. HEENT: Intact dressing to left posterior scalp w/sanguinous drainage noted, KWAME drains to bulb suction x2, #1 w/sanguinous & #2 w/serosanguinous drainage. PERRLA 3mm brisk. Orally intubated. OGT. MUSCULOSKELETAL: No clubbing or deformity evident. NEUROLOGICAL: Obtunded, sedated with propofol. Nonverbal, intubated. No eye opening to voice or noxious stimulation. Facial grimacing noxious stimulation. Trace movement to RUE & withdrawal of BLE to local noxious stimulation, but none to LUE. Strong withdrawal of RUE & LLE to central noxious stimulation, RLE appeared purposeful and looked like kicking at practitioner, less to LUE. (Lacho Lacey) Lab, Micro, Other Results Recent Impressions Chest X-Ray 04/16/17599 Signed Impressions: Service Date/Time: April 04:50 - CONCLUSION: Lines and tubes. Clear lungs. Da Ramirez Jr., MD Head CT 04/15/17599 Signed Impressions: Service Date/Time: Saturday, April 15, 2017 04:27 - CONCLUSION: 1. Interval left craniotomy with surgical drain placement. There is new diffuse subdural hematoma involving the left side beneath the craniotomy bone despite surgical drain placement. 2. Small subdural hemorrhage along the right frontal region. This is slightly larger from the prior study. 3. Reduction in size the midline shift. Da Ramirez Jr., MD Laboratory Tests Test 04/14/17 03:20 04/14/17 19:06 04/14/17 19:30 04/15/17 00:00 White Blood Count 5.0 TH/MM3 9.8 TH/MM3 Red Blood Count 4.29 MIL/MM3 4.31 MIL/MM3 Hemoglobin 13.2 GM/DL 12.7 GM/DL Hematocrit 37.6 % 38.1 % Mean Corpuscular Volume 87.8 FL 88.5 FL Mean Corpuscular Hemoglobin 30.9 PG 29.5 PG Mean Corpuscular Hemoglobin Concent 35.2 % 33.4 % Red Cell Distribution Width 14.8 % 14.4 % Platelet Count 182 TH/MM3 268 TH/MM3 Mean Platelet Volume 8.1 FL 7.6 FL Neutrophils (%) (Auto) 78.9 % 83.6 % Lymphocytes (%) (Auto) 11.0 % 6.9 % Monocytes (%) (Auto) 8.3 % 7.9 % Eosinophils (%) (Auto) 1.4 % 1.1 % Basophils (%) (Auto) 0.4 % 0.5 % Neutrophils # (Auto) 3.9 TH/MM3 8.2 TH/MM3 Lymphocytes # (Auto) 0.5 TH/MM3 0.7 TH/MM3 Monocytes # (Auto) 0.4 TH/MM3 0.8 TH/MM3 Eosinophils # (Auto) 0.1 TH/MM3 0.1 TH/MM3 Basophils # (Auto) 0.0 TH/MM3 0.0 TH/MM3 CBC Comment DIFF FINAL DIFF FINAL Differential Comment Hematology Comments Blood Urea Nitrogen 14 MG/DL 12 MG/DL Creatinine 0.82 MG/DL 0.79 MG/DL Random Glucose 110 MG/DL 130 MG/DL Total Protein 6.4 GM/DL Albumin 3.4 GM/DL Calcium Level 8.3 MG/DL 7.9 MG/DL Alkaline Phosphatase 49 U/L Aspartate Amino Transf (AST/SGOT) 15 U/L Alanine Aminotransferase (ALT/SGPT) 12 U/L Total Bilirubin 0.6 MG/DL Sodium Level 144 MEQ/L 142 MEQ/L Potassium Level 3.8 MEQ/L 3.8 MEQ/L Chloride Level 109 MEQ/L 110 MEQ/L Carbon Dioxide Level 26.9 MEQ/L 21.3 MEQ/L Anion Gap 8 MEQ/L 11 MEQ/L Estimat Glomerular Filtration Rate 93 ML/MIN 97 ML/MIN Blood Gas Puncture Site ART LINE ART LINE Blood Gas Patient Temperature 98.6 98.6 Blood Gas HCO3 20 mmol/L 19 mmol/L Blood Gas Base Excess -4.4 mmol/L -5.3 mmol/L Blood Gas Oxygen Saturation 97 % 97 % Arterial Blood pH 7.34 7.35 Arterial Blood Partial Pressure CO2 39 mmHg 35 mmHg Arterial Blood Partial Pressure O2 261 mmHg 246 mmHg Arterial Blood Oxygen Content 18.8 Vol % 16.1 Vol % Arterial Blood Carboxyhemoglobin 1.2 % 1.1 % Arterial Blood Methemoglobin 1.5 % 1.2 % Blood Gas Hemoglobin 13.4 G/DL 11.4 G/DL Oxygen Delivery Device VENTILATOR VENTILATOR Blood Gas Ventilator Setting IN OR /10PS/5PEEP Blood Gas Inspired Oxygen 50 % 50 % Prothrombin Time 11.4 SEC Prothromb Time International Ratio 1.1 RATIO Activated Partial Thromboplast Time 30.0 SEC Fibrinogen 346 mg/dL Magnesium Level 1.8 MG/DL Test 04/15/17 05:10 04/15/17 09:15 04/15/17 14:04 04/15/17 22:30 White Blood Count 9.5 TH/MM3 Red Blood Count 3.72 MIL/MM3 Hemoglobin 11.5 GM/DL Hematocrit 32.7 % Mean Corpuscular Volume 87.8 FL Mean Corpuscular Hemoglobin 30.8 PG Mean Corpuscular Hemoglobin Concent 35.1 % Red Cell Distribution Width 14.8 % Platelet Count 234 TH/MM3 Mean Platelet Volume 7.6 FL Blood Urea Nitrogen 12 MG/DL 9 MG/DL Creatinine 0.86 MG/DL 0.68 MG/DL Random Glucose 181 MG/DL 124 MG/DL Calcium Level 7.7 MG/DL 7.6 MG/DL Sodium Level 140 MEQ/L 143 MEQ/L Potassium Level 3.7 MEQ/L 3.3 MEQ/L Chloride Level 109 MEQ/L 110 MEQ/L Carbon Dioxide Level 23.3 MEQ/L 22.7 MEQ/L Anion Gap 8 MEQ/L 10 MEQ/L Estimat Glomerular Filtration Rate 88 ML/MIN 115 ML/MIN Prothrombin Time 11.4 SEC Prothromb Time International Ratio 1.1 RATIO Blood Gas Puncture Site ART LINE Blood Gas Patient Temperature 98.6 Blood Gas HCO3 22 mmol/L Blood Gas Base Excess -1.3 mmol/L Blood Gas Oxygen Saturation 97 % Arterial Blood pH 7.43 Arterial Blood Partial Pressure CO2 34 mmHg Arterial Blood Partial Pressure O2 232 mmHg Arterial Blood Oxygen Content 14.5 Vol % Arterial Blood Carboxyhemoglobin 1.2 % Arterial Blood Methemoglobin 1.3 % Blood Gas Hemoglobin 10.2 G/DL Oxygen Delivery Device VENTILATOR Blood Gas Ventilator Setting AC/RR14/VT550/[id number] Blood Gas Inspired Oxygen 50 % Phosphorus Level 2.0 MG/DL Magnesium Level 1.8 MG/DL Test 04/16/17 04:40 04/16/17 05:44 White Blood Count 6.0 TH/MM3 Red Blood Count 3.34 MIL/MM3 Hemoglobin 10.2 GM/DL Hematocrit 29.3 % Mean Corpuscular Volume 87.8 FL Mean Corpuscular Hemoglobin 30.4 PG Mean Corpuscular Hemoglobin Concent 34.7 % Red Cell Distribution Width 14.8 % Platelet Count 167 TH/MM3 Mean Platelet Volume 7.4 FL Blood Urea Nitrogen 7 MG/DL Creatinine 0.71 MG/DL Random Glucose 110 MG/DL Calcium Level 7.8 MG/DL Phosphorus Level 3.2 MG/DL Magnesium Level 1.8 MG/DL Sodium Level 142 MEQ/L Potassium Level 3.5 MEQ/L Chloride Level 109 MEQ/L Carbon Dioxide Level 22.5 MEQ/L Anion Gap 11 MEQ/L Estimat Glomerular Filtration Rate 109 ML/MIN Blood Gas Puncture Site IRINA Blood Gas Patient Temperature 98.6 Blood Gas HCO3 23 mmol/L Blood Gas Base Excess -0.9 mmol/L Blood Gas Oxygen Saturation 97 % Arterial Blood pH 7.45 Arterial Blood Partial Pressure CO2 33 mmHg Arterial Blood Partial Pressure O2 215 mmHg Arterial Blood Oxygen Content 13.7 Vol % Arterial Blood Carboxyhemoglobin 1.2 % Arterial Blood Methemoglobin 1.2 % Blood Gas Hemoglobin 9.6 G/DL Oxygen Delivery Device VENTILATOR Blood Gas Ventilator Setting AC/16/550/PEEP5 Blood Gas Inspired Oxygen 50 % (Lacho Lacey) Medical Decision Making Impression and Plan Impression: 1. 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 Dementia 4. Cardiac murmur Patient obtunded but sedated, does withdraw to noxious stimulation. Reviewed labs for today. Interval worsening of anaemia. Sodium 142. Improved renal function. CT brain demonstrates interval left craniotomy with drain placement. New diffuse left-sided SDH under craniotomy bone. Slight increase in the right frontal SDH. Reduction in the midline shift. KWAME drain output for the past 24 hrs is 70 mL for #1 and 45 mL for #2 as of this morning. POD #2 () s/p: Left frontoparietal craniotomy for evacuation of subacute on chronic subdural hematoma Postoperative Diagnosis: (1) Subdural hematoma, chronic (2) Acute subdural hematoma 1. Left hemisphere subacute on chronic subdural hematoma 2. Acute right frontal subdural hematoma Plan: Discussed plan of care with Nursing. Primary management per Intelligent Systems Engineer. Neuro checks. Repeat CT brain for any decline in neuro status. Monitor KWAME drain output. Mechanical DVT prophylaxis. Hold pharmacologic DVT prophylaxis. Stress ulcer prophylaxis. Wean sedation as tolerated. Wean vent as tolerated. (Lacho Lacey) Attending Statement The exam, history, and the medical decision-making described in the above note were completed with the assistance of the mid-level provider. I reviewed and agree with the findings presented. I attest that I had a [id number] encounter with the patient on the same day, and personally performed and documented my assessment and findings in the medical record. On examination today the patient is intubated and sedated. Discussion with nursing staff indicates consistent with increased agitation when sensation decreased. Fentanyl added today. On examination today the patient pupils are 3 mm nonreactive. Mild disconjugate oculocephalic movements. Mild flexion upper extremities deep pain There is moderate blood coming out from both drains. Scalp incision otherwise intact Discussed at length with the patient's family in the room today. There is moderate recurrent subdural hematoma following craniotomy for evacuation of large left hemispheric subacute on chronic hematoma with thick membrane formation. The family was advised preoperatively that postoperative recurrent hematoma formation was very likely given the large size of the hematoma and the patient on aspirin. I reiterated again today the plan for treatment is unchanged compared to preoperative. I would like to wait for a few days for the clot to stabilize and at least partially liquefied and for platelet function to improve prior to further surgical intervention to remove the recurrent subdural hematoma, as long as there is no neurologic deterioration or progressive hematoma formation and mass effect. They are concerned regarding the effect of the prolonged sedation on his underlying dementia, and it is felt that this would be a relatively low risk. A follow-up CT scan will be obtained in the morning. Continuing subdural drains at this point. Due to his significant agitation off sedation, he will likely need to be continued on ventilatory support was sedation until further surgical intervention anticipated for early next week. (Sylvester Odom MD) Lacho Lacey Apr 16, 2017 09:50 Sylvester Odom MD Apr 16, 2017 19:04
[2017-04-16 12:29] LABS: BICARBONATE 23.6 MEQ/L (21.0-32.0); CALCIUM 7.8 MG/DL (8.5-10.1); CREATININE 0.63 MG/DL (0.60-1.30)
[2017-04-16] MEDS ORDERED: VECURONIUM BROMIDE 20 MG VIAL IV ONE (13:55)
[2017-04-16] MEDS ORDERED: PHENYLEPH/NS 1000 MCG/10 ML SYR IV ONE (13:55)
[2017-04-16] MEDS ORDERED: SODIUM CHLORIDE 0.9% 20 ML VIAL IV ONE (13:55)
[2017-04-16] MEDS ORDERED: POTASSIUM CHLORIDE 20 MEQ PWD PACKET PO ONE (19:45)
[2017-04-16] MEDS: MAGNESIUM SULFATE 1 GM PREMIX 100 ML IV SCH ×2 (19:59→21:01)
[2017-04-16] MEDS ORDERED: SODIUM CHLOR 0.9% 1000 ML INJ 1,000 ML IV ONE (20:00)
[2017-04-16] MEDS ORDERED: ACETAMINOPHEN 1000 MG/100 ML 100 ML IV ONE (20:00)
[2017-04-16] MEDS: DONEPEZIL HCL 5 MG TAB PO SCH (20:08)
[2017-04-16] MEDS ORDERED: levETIRAcetam INJ 100 ML IV ONE (20:15)
--- NOTE | 2017-04-16 21:38 | RADRPT ---
EXAM DATE/TIME: 04/16/2017 21:08 [facility] COMPARISON: CT BRAIN W/O CONTRAST, April 15, 2017, 4:27. INDICATIONS : Subdural hematoma F/U. RADIATION DOSE: 69.15 CTDIvol (mGy) MEDICAL HISTORY : Carcinoma, prostate. Diabetes mellitus type 1. SURGICAL HISTORY : None. ENCOUNTER: Subsequent ACUITY: 4 - 6 days PAIN SCALE: Non-responsive LOCATION: cranial TECHNIQUE: Multiple contiguous axial images were obtained of the head. Using automated exposure control and adj ustment of the mA and/or kV according to patient size, radiation dose was kept as low as reasonably a chievable to obtain optimal diagnostic quality images. DICOM format image data is available electro nically for review and comparison. FINDINGS: There is hemorrhage layering along the tentorium with downward transtentorial herniation of the mesia l temporal regions demonstrate mass effect on the brainstem and hypodensity is noted in the van. Thi s is a new finding from the previous study. There is a mixed attenuation predominantly hyperdense sub dural hematoma along the left cerebral convex are the with maximal transverse thickness of 1.8 cm. Th ere is some hemorrhage in the interhemispheric fissure, and there is subfalcine herniation with midli ne shift from left to right of 1.3 cm. There is effacement of the left posterior horn and temporal ho rn. There is dilatation of the right temporal horn. A right-sided subdural hematoma is also noted, no t significantly changed. No fractures. A craniotomy has been performed in the left frontal region wit h 2 subdural drains terminating in the left frontal extra-axial space. CONCLUSION: 1. Significant mass effect is now identified with herniation as described above. The findings of this study were discussed with Dr. Corral at 9: 2. 35 PM on April 16, 2017. Dharmesh Muhammad MD on April 16, 2017 at 21:27 Board Certified Radiologist. This report was verified electronically.
[2017-04-16] MEDS ORDERED: PHENYLEPHRINE HCL 10 MG/ML VIAL ONE (21:44)
[2017-04-16] MEDS: PHENYLEPHRINE INJ 40 MG in SODIUM CHLORID 0.9% 500 ML INJ 496 ML IV PRN (21:45)
[2017-04-16] MEDS ORDERED: SODIUM CHLORIDE 23.4% INJ 188 MEQ in SODIUM CHLOR 0.9% 1000 ML INJ 1,000 ML IV SCH (22:15)
[2017-04-16] MEDS ORDERED: GELFOAM SIZE 100 ONE (22:18)
[2017-04-16] MEDS ORDERED: THROMBIN (TOPICAL) 5,000 UNIT VIAL ONE (22:18)
[2017-04-16] MEDS ORDERED: LIDOCAINE 2%/EPINEPHrine PF 1:200,000 20ML SDV ONE (22:18)
[2017-04-16] MEDS ORDERED: GENTAMICIN SULFATE 80 MG/2 ML VIAL ONE (22:22)
[2017-04-16] MEDS ORDERED: ceFAZolin INJ 1,000 MG VIAL ONE (23:36)
[2017-04-17] VITALS (19 sets, daily range): BP systolic 116–146; BP diastolic 45–60; PULSE 67–112; RESP 16–19; TEMP 98.5–99.7; O2SAT 95–100
--- NOTE | 2017-04-17 00:56 | PD.OP ---
Operative Report Date of Surgery: Apr 17, 2017 Preoperative Diagnosis: (1) Acute subdural hematoma Recurrent left hemisphere subdural hematoma Postoperative Diagnosis: (1) Acute subdural hematoma Recurrent left hemisphere subdural hematoma Procedure: Revision left frontoparietal craniotomy evacuation of recurrent left hemisphere subdural hematoma Anesthesia: Gen. endotracheal Surgeon: Sylvester Odom Solution Strategist(s): Simon Veliz Operation and Findings: Findings: Moderate densely clotted acute recurrent left hemisphere subdural hematoma primarily in the frontal region. Procedure in detail: The patient was brought into the operating room and general endotracheal anesthesia induced without difficulty. The Munoz catheter, and sequential compression devices were in place. The lines were established per anesthesia. The patient was placed in semilateral position on the 3080 table with the head on the horseshoe headrest. All extremities were appropriately padded Appropriate timeout procedure was performed with all personnel present and in agreement The left side of the head was shaved with the clippers and sterilely prepped and draped 1% Xylocaine was used for local infiltration over the incision site which was made over the left frontoparietal region in a curvilinear fashion by opening the previous incision site and carried sharply down to the cranium through the temporalis muscle and fascia. The scalp and temporalis muscle flap were elevated in a single layer with the periosteal elevator and retracted over a laparotomy sponge with the large scalp hooks. The previous incision in the dura was opened in a cruciate fashion by removing the previous 4-0 Nurolon sutures and the edges retracted with 4-0 Nurolon suture. The moderate acute underlying subdural hematoma was evacuated with gentle suction and irrigation until clear The bipolar forceps were used to control any bleeding at the operative site. The brain was soft and pulsatile at the time of closure. The dura was closed with 4-0 Nurolon suture and a running and interrupted fashion with tack up sutures along the border of the craniotomy site placed through holes made with the wire-passing drill. A 7 mm flat fluted drain [address] in the subdural space The drains were brought out through incisions in the posterior parietal region and secured to the skin with nylon suture The closure was performed with 2-0 Vicryl for the temporalis muscle fascia and galeal closure and gilles for the skin closure. A dressing of sterile Telfa, 4 x 4's, and a loose head stockinette was applied. The patient was taken to recovery room in stable condition All counts were correct at the end of the case. Estimated blood loss was 100 cc No specimen was sent to pathology Sylvester Odom MD Apr 17, 2017 00:56
[2017-04-17] MEDS: NS + KCL 20 MEQ INJ 1,000 ML IV SCH (01:28)
[2017-04-17] MEDS: PROPOFOL 1000 MG/100 ML IV PRN ×3 (01:28→18:58)
[2017-04-17] MEDS ORDERED: DO NOT ADM ANY ANTICOAGULANT DRUGS PRN (01:30)
--- NOTE | 2017-04-17 01:46 | RADRPT ---
EXAM DATE/TIME: 04/17/2017 01:16 [facility] COMPARISON: CHEST SINGLE AP, April 16, 2017, 4:50. INDICATIONS : Central line placement. MEDICAL HISTORY : None. SURGICAL HISTORY : None. ENCOUNTER: Initial ACUITY: 1 day PAIN SCORE: Non-responsive. LOCATION: Bilateral chest FINDINGS: Single AP view of the chest. Endotracheal tube and nasogastric tube remain in place. Right IJ central venous catheter is now seen with the tip in the region of the proximal SVC. Patchy bilateral lower l caroline zone opacity more prominent than on comparison study. No evidence of pneumothorax. CONCLUSION: 1. Right IJ central venous catheter in place with the tip in the region of proximal SVC. No evidence of pneumothorax. 2. Patchy bilateral lower lung zone opacity. David Meade MD on April 17, 2017 at 1:43 Board Certified Radiologist. This report was verified electronically.
[2017-04-17] MEDS: CHLORHEXIDINE GLUCONATE 2 % 1 PACK (2 CLOTHS) TOP SCH (02:44)
[2017-04-17] MEDS: RESP: ALBUTEROL 2.5 MG/IPRATROPIUM 0.5 MG NEB (SCH) INH ×4 (03:58→19:51)
[2017-04-17] MEDS: 3% SALINE INJ 500 ML IV SCH (04:51)
[2017-04-17] MEDS: PHENYLEPHRINE INJ 40 MG in SODIUM CHLORID 0.9% 500 ML INJ 496 ML IV PRN (06:41)
[2017-04-17 07:05] LABS: BICARBONATE 18.5 MEQ/L (21.0-32.0); CALCIUM 7.1 MG/DL (8.5-10.1); CREATININE 0.69 MG/DL (0.60-1.30); MAGNESIUM 2.1 MG/DL (1.5-2.5); PHOSPHORUS 2.1 MG/DL (2.5-4.9)
[2017-04-17 07:06] LABS: HEMATOCRIT 28.4 % (39.0-51.0); HEMOGLOBIN 9.7 GM/DL (13.0-17.0); MEAN CELL VOLUME 88.8 FL (80.0-100.0); MEAN CORPUSCULAR HEMOGLOBIN 30.3 PG (27.0-34.0); MEAN CORPUSCULAR HGB CONC 34.1 % (32.0-36.0); MEAN PLATELET VOLUME 7.9 FL (7.0-11.0); PLATELET COUNT 252 TH/MM3 (150-450); RED CELL DISTRIBUTION WIDTH 15.1 % (11.6-17.2); WHITE BLOOD COUNT 22.1 TH/MM3 (4.0-11.0)
[2017-04-17 07:22] LABS: CALCIUM-PROTEIN CORRECTED 8.1 MG/DL (8.5-10.1); TOTAL PROTEIN 5.3 GM/DL (6.4-8.2)
[2017-04-17] MEDS: INSULIN ASPART SUPPLEMENTAL SCALE SQ SCH ×4 (08:00→21:48)
[2017-04-17] MEDS: TOLTERODINE TARTRATE 4 MG CAP LA PO SCH (08:31)
[2017-04-17] MEDS: GABAPENTIN 400 MG CAP PO SCH ×3 (08:31→18:57)
[2017-04-17] MEDS: levETIRAcetam INJ 500 MG in SODIUM CHLORIDE 0.9% INJ 100 ML IV SCH ×2 (08:32→21:46)
[2017-04-17] MEDS: SERTRALINE HCL 50 MG TAB PO SCH (08:32)
[2017-04-17] MEDS: DOCUSATE SODIUM 50 MG/SENNA 8.6 MG TAB PO SCH ×2 (08:32→21:48)
[2017-04-17] MEDS: SODIUM CHLORIDE 0.9% FLUSH 10 ML FLUSH IV FLUSH SCH ×2 (08:33→21:46)
[2017-04-17] MEDS: FAMOTIDINE 20 MG/2 ML VIAL IV PUSH SCH ×2 (08:33→21:47)
[2017-04-17] MEDS: PRAVASTATIN SOD 40 MG TAB PO SCH (08:33)
[2017-04-17] MEDS: VALSARTAN 80 MG TAB PO SCH (08:34)
[2017-04-17] MEDS: POTASSIUM PHOSPHATE MONOBASIC 500 MG TAB PO/TUBE PRN ×2 (08:48→18:58)
--- NOTE | 2017-04-17 09:02 | HHI.NSPN ---
(Lacho Lacey Betsey JOSEPH) History Chief Complaint: Unable to obtain due to patient's clinical condition. (Lacho Lacey [employer] SALES [employer]SULTANT) Interval History 04/12: Mr. Hope is a 71-year-old male who presented to the emergency room today after he fell at home in the presence of his daughter. She states that he lost his balance while trying to put some close on, and fell and struck his head. There was no loss of consciousness. No seizure activity or nausea or emesis reported. The patient has baseline dementia and confusion, but no definite overall change in his mentation after the fall earlier today, according to his daughter, who he lives with. He presently has no complaint of headache. He does have some chronic neck and back pain. 04/13: The patient was examined in the presence of the family today and a more detailed history has been obtained. They indicate chronic progressive dementia to the point that the patient has had to move in with his daughter earlier this year. He cannot care for himself. He is usually quite confused, conversing with only a few words or short sentences and unable to stay on task with conversations. He is usually very active, fidgeting constantly. They state that his mental status today is not significantly changed from his overall baseline. He did go to the emergency room a couple of weeks ago at [facility] due to some pressure sensation or frontal headaches and was diagnosed with sinus congestion. A CT scan of the head was not obtained. He has had no definite falls over the past few weeks up until yesterday. 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 Post-operatively he returned to [facility] for further care and monitoring. 04/15: This morning the patient is obtunded and has no sedation infusing. He does withdraw to noxious stimulation. He does not open his eyes but does have facial grimacing and turns his head to noxious stimulation. ADDENDUM at 1854: Patient was sedated with propofol 50 mcg/kg/min when seen, the pump was not visible at the time. BET. 04/16: When seen the patient is obtunded but does have the propofol drip infusing. Nursing reports that he moves all extremities but does become agitated when the propofol is weaned down. He moves all extremities to noxious stimulation when seen but did not follow any commands. 04/17: The patient remains obtunded and continues to be sedated with a propofol drip. He is now on phenylephrine for blood pressure support. He does not respond to commands and only withdraws the lower extremities to noxious stimulation. He does have some facial grimacing but no eye opening to noxious stimulation. He did go emergently late last night/early this morning for a revision of the left frontoparietal craniotomy for evacuation of a recurrent left hemisphere subdural haematoma. (Lacho Lacey) System Review Comments Unable to obtain due to patient's clinical condition. (Lacho Lacey) Exam Results 04/15/17 04/15/17 04/16/17 04/16/17 04/17/17 04/17/17 06:00 18:00 06:00 18:00 06:00 18:00 Intake Total 3600 ml 900 ml 1610 ml 423 ml 4470 ml 26 ml Output Total 2100 ml 830 ml 1235 ml 1320 ml 1580 ml Balance 1500 ml 70 ml 375 ml -897 ml 2890 ml 26 ml IV Total 600 ml 900 ml 1610 ml 350 ml 2322 ml 26 ml Tube Feeding 73 ml 48 ml Other 3000 ml 2100 ml Output Urine Total 1250 ml 750 ml 1200 ml 1300 ml 675 ml Drainage Total 250 ml 80 ml 35 ml 20 ml 105 ml Estimated Blood Loss 600 ml 100 ml Other 700 ml # Voids 50 # Bowel Movements 0 1 0 0 Vital Signs Date Time Temp Pulse Resp B/P (MAP) Pulse Ox O2 Delivery O2 Flow Rate FiO2 04/17/17 08:24 100 30 04/17/17 06:41 72 107/47 04/17/17 06:00 82 04/17/17 04:00 90 04/17/17 04:00 99.1 90 16 100 146/56 (86) 04/17/17 04:00 50 04/17/17 03:55 100 50 04/17/17 02:00 72 04/17/17 01:00 98.8 86 16 99 142/46 (78) 04/16/17 21:45 128 90/44 04/16/17 20:00 30 04/16/17 20:00 101.6 130 16 128/60 (82) 97 04/16/17 19:41 97 30 04/16/17 19:00 100 Mechanical Ventilator 30 04/16/17 18:00 102 04/16/17 16:00 30 04/16/17 16:00 102 04/16/17 16:00 99.8 100 16 100 132/54 (80) 04/16/17 15:43 99 30 04/16/17 14:00 95 04/16/17 12:22 100 30 04/16/17 12:00 99.1 84 16 100 133/50 (77) 04/16/17 12:00 30 04/16/17 12:00 84 04/16/17 10:00 91 04/16/17 09:04 100 30 04/16/17 08:00 75 04/16/17 08:00 99.6 75 16 100 134/51 (78) 04/16/17 08:00 30 04/16/17 07:00 100 Mechanical Ventilator 30 04/16/17 06:00 85 04/16/17 06:00 30 04/16/17 04:00 50 04/16/17 04:00 98.9 80 20 100 146/52 (83) 04/16/17 04:00 80 04/16/17 03:32 100 50 04/16/17 02:00 80 04/16/17 00:00 50 04/16/17 00:00 81 04/16/17 00:00 99.0 81 16 100 129/41 (70) 04/15/17 22:00 90 04/15/17 20:05 100 45 04/15/17 20:00 99.8 96 16 100 140/58 (85) 04/15/17 20:00 96 04/15/17 20:00 50 04/15/17 19:00 100 Mechanical Ventilator 50 04/15/17 18:00 93 04/15/17 16:00 82 04/15/17 16:00 50 04/15/17 16:00 99.5 88 16 100 146/67 (93) 04/15/17 15:15 100 50 04/15/17 14:00 79 04/15/17 12:00 87 04/15/17 12:00 50 04/15/17 12:00 99.5 86 14 100 114/51 (72) 04/15/17 11:20 100 50 04/15/17 10:00 87 04/15/17 08:34 100 50 04/15/17 08:29 100 45 04/15/17 08:00 98.1 88 14 100 126/66 (86) 04/15/17 08:00 50 04/15/17 08:00 88 04/15/17 07:00 Mechanical Ventilator 45 04/15/17 06:00 45 04/15/17 05:48 100 45 04/15/17 05:23 11 04/15/17 04:25 100 100 04/15/17 04:00 99.1 83 11 104/56 (72) 100 116/51 (72) 04/15/17 03:44 100 45 04/15/17 01:11 99 45 04/15/17 00:00 98.8 76 11 106/55 (72) 100 110/50 (70) 04/15/17 00:00 50 04/14/17 23:11 100 50 04/14/17 22:05 95 40 04/14/17 22:00 Mechanical Ventilator 40 04/14/17 22:00 99.3 86 19 178/76 (110) 100 179/78 (111) 04/14/17 22:00 105/66 04/14/17 21:50 50 04/14/17 21:50 100 100 04/14/17 21:45 68 15 157/65 (95) 100 Mechanical Ventilator 50 156/62 (93) 04/14/17 21:30 72 12 85/54 (64) 100 Mechanical Ventilator 50 98/48 (65) 04/14/17 21:18 91 75/52 18 21:15 91 16 75/52 (60) 100 Mechanical Ventilator 50 98/49 (65) 04/14/17 21:00 82 12 107/53 (71) 100 Mechanical Ventilator 50 105/56 (72) 04/14/17 20:45 66 12 116/56 (76) 100 Mechanical Ventilator 50 130/56 (80) 04/14/17 20:30 100 50 04/14/17 20:30 99.0 80 12 110/50 (70) 100 Mechanical Ventilator 50 87/57 (67) 04/14/17 20:30 50 04/14/17 17:00 65 17 113/56 (75) 97 04/14/17 16:45 63 17 107/56 (73) 94 04/14/17 16:30 71 17 88/54 (65) 94 04/14/17 15:49 97.9 76 17 116/58 (77) 96 04/14/17 14:00 60 04/14/17 12:00 98.5 51 13 172/79 (110) 99 04/14/17 12:00 50 04/14/17 10:00 50 (Lacho Lacey) Physical Examination GENERAL: Obtunded, propofol 30 mcg/kg/min infusing for sedation. Fentanyl infusing at 50 mcg/hr for pain control. Phenylephrine infusing for blood pressure control. No apparent distress. HEENT: Intact dressing to left posterior scalp, KWAME drain to bulb suction x2 w/ serosanguinous drainage noted. PERRLA 2mm brisk. Orally intubated. OGT. MUSCULOSKELETAL: No clubbing or deformity evident. NEUROLOGICAL: Obtunded, sedated with propofol. Nonverbal, intubated. No eye opening to voice or noxious stimulation. Facial grimacing noxious stimulation. Withdrawal of BLE to local noxious stimulation, but none to BUE. No response to central noxious stimulation. (Lacho Lacey) Lab, Micro, Other Results Recent Impressions Chest X-Ray 04/17/17 0109 Signed Impressions: Service Date/Time: Monday, April 17, 2017 01:16 - CONCLUSION: 1. Right IJ central venous catheter in place with the tip in the region of proximal SVC. No evidence of pneumothorax. 2. Patchy bilateral lower lung zone opacity. David Meade MD Chest X-Ray 04/16/17 0600 Signed Impressions: Service Date/Time: April 04:50 - CONCLUSION: Lines and tubes. Clear lungs. Da Ramirez Jr., MD Head CT 04/16/17 0000 Signed Impressions: Service Date/Time: April 21:08 - CONCLUSION: 1. Significant mass effect is now identified with herniation as described above. The findings of this study were discussed with Dr. Corral at 9: 2. 35 PM on April 16, 2017. Dharmesh Muhammad MD Head CT 04/15/17 0600 Signed Impressions: Service Date/Time: Saturday, April 15, 2017 04:27 - CONCLUSION: 1. Interval left craniotomy with surgical drain placement. There is new diffuse subdural hematoma involving the left side beneath the craniotomy bone despite surgical drain placement. 2. Small subdural hemorrhage along the right frontal region. This is slightly larger from the prior study. 3. Reduction in size the midline shift. Da Ramirez Jr., MD Laboratory Tests Test 04/14/17 19:06 04/14/17 19:30 04/15/17 00:00 04/15/17 05:10 Blood Gas Puncture Site ART LINE ART LINE Blood Gas Patient Temperature 98.6 98.6 Blood Gas HCO3 20 mmol/L 19 mmol/L Blood Gas Base Excess -4.4 mmol/L -5.3 mmol/L Blood Gas Oxygen Saturation 97 % 97 % Arterial Blood pH 7.34 7.35 Arterial Blood Partial Pressure CO2 39 mmHg 35 mmHg Arterial Blood Partial Pressure O2 261 mmHg 246 mmHg Arterial Blood Oxygen Content 18.8 Vol % 16.1 Vol % Arterial Blood Carboxyhemoglobin 1.2 % 1.1 % Arterial Blood Methemoglobin 1.5 % 1.2 % Blood Gas Hemoglobin 13.4 G/DL 11.4 G/DL Oxygen Delivery Device VENTILATOR VENTILATOR Blood Gas Ventilator Setting IN OR 10/700/10PS/5PEEP Blood Gas Inspired Oxygen 50 % 50 % White Blood Count 9.8 TH/MM3 9.5 TH/MM3 Red Blood Count 4.31 MIL/MM3 3.72 MIL/MM3 Hemoglobin 12.7 GM/DL 11.5 GM/DL Hematocrit 38.1 % 32.7 % Mean Corpuscular Volume 88.5 FL 87.8 FL Mean Corpuscular Hemoglobin 29.5 PG 30.8 PG Mean Corpuscular Hemoglobin Concent 33.4 % 35.1 % Red Cell Distribution Width 14.4 % 14.8 % Platelet Count 268 TH/MM3 234 TH/MM3 Mean Platelet Volume 7.6 FL 7.6 FL Neutrophils (%) (Auto) 83.6 % Lymphocytes (%) (Auto) 6.9 % Monocytes (%) (Auto) 7.9 % Eosinophils (%) (Auto) 1.1 % Basophils (%) (Auto) 0.5 % Neutrophils # (Auto) 8.2 TH/MM3 Lymphocytes # (Auto) 0.7 TH/MM3 Monocytes # (Auto) 0.8 TH/MM3 Eosinophils # (Auto) 0.1 TH/MM3 Basophils # (Auto) 0.0 TH/MM3 CBC Comment DIFF FINAL Differential Comment Prothrombin Time 11.4 SEC Prothromb Time International Ratio 1.1 RATIO Activated Partial Thromboplast Time 30.0 SEC Fibrinogen 346 mg/dL Blood Urea Nitrogen 12 MG/DL 12 MG/DL Creatinine 0.79 MG/DL 0.86 MG/DL Random Glucose 130 MG/DL 181 MG/DL Calcium Level 7.9 MG/DL 7.7 MG/DL Magnesium Level 1.8 MG/DL Sodium Level 142 MEQ/L 140 MEQ/L Potassium Level 3.8 MEQ/L 3.7 MEQ/L Chloride Level 110 MEQ/L 109 MEQ/L Carbon Dioxide Level 21.3 MEQ/L 23.3 MEQ/L Anion Gap 11 MEQ/L 8 MEQ/L Estimat Glomerular Filtration Rate 97 ML/MIN 88 ML/MIN Test 04/15/17 09:15 04/15/17 14:04 04/15/17 22:30 04/16/17 04:40 Prothrombin Time 11.4 SEC Prothromb Time International Ratio 1.1 RATIO Blood Gas Puncture Site ART LINE Blood Gas Patient Temperature 98.6 Blood Gas HCO3 22 mmol/L Blood Gas Base Excess -1.3 mmol/L Blood Gas Oxygen Saturation 97 % Arterial Blood pH 7.43 Arterial Blood Partial Pressure CO2 34 mmHg Arterial Blood Partial Pressure O2 232 mmHg Arterial Blood Oxygen Content 14.5 Vol % Arterial Blood Carboxyhemoglobin 1.2 % Arterial Blood Methemoglobin 1.3 % Blood Gas Hemoglobin 10.2 G/DL Oxygen Delivery Device VENTILATOR Blood Gas Ventilator Setting AC/RR14/VT550/[id number] Blood Gas Inspired Oxygen 50 % Blood Urea Nitrogen 9 MG/DL 7 MG/DL Creatinine 0.68 MG/DL 0.71 MG/DL Random Glucose 124 MG/DL 110 MG/DL Calcium Level 7.6 MG/DL 7.8 MG/DL Phosphorus Level 2.0 MG/DL 3.2 MG/DL Magnesium Level 1.8 MG/DL 1.8 MG/DL Sodium Level 143 MEQ/L 142 MEQ/L Potassium Level 3.3 MEQ/L 3.5 MEQ/L Chloride Level 110 MEQ/L 109 MEQ/L Carbon Dioxide Level 22.7 MEQ/L 22.5 MEQ/L Anion Gap 10 MEQ/L 11 MEQ/L Estimat Glomerular Filtration Rate 115 ML/MIN 109 ML/MIN White Blood Count 6.0 TH/MM3 Red Blood Count 3.34 MIL/MM3 Hemoglobin 10.2 GM/DL Hematocrit 29.3 % Mean Corpuscular Volume 87.8 FL Mean Corpuscular Hemoglobin 30.4 PG Mean Corpuscular Hemoglobin Concent 34.7 % Red Cell Distribution Width 14.8 % Platelet Count 167 TH/MM3 Mean Platelet Volume 7.4 FL Test 04/16/17 05:44 04/16/17 11:35 04/16/17 18:10 04/16/17 22:25 Blood Gas Puncture Site IRINA Blood Gas Patient Temperature 98.6 Blood Gas HCO3 23 mmol/L Blood Gas Base Excess -0.9 mmol/L Blood Gas Oxygen Saturation 97 % Arterial Blood pH 7.45 Arterial Blood Partial Pressure CO2 33 mmHg Arterial Blood Partial Pressure O2 215 mmHg Arterial Blood Oxygen Content 13.7 Vol % Arterial Blood Carboxyhemoglobin 1.2 % Arterial Blood Methemoglobin 1.2 % Blood Gas Hemoglobin 9.6 G/DL Oxygen Delivery Device VENTILATOR Blood Gas Ventilator Setting AC/16/550/PEEP5 Blood Gas Inspired Oxygen 50 % Blood Urea Nitrogen 8 MG/DL Creatinine 0.63 MG/DL Random Glucose 115 MG/DL Calcium Level 7.8 MG/DL Sodium Level 144 MEQ/L 140 MEQ/L Potassium Level 3.5 MEQ/L 3.9 MEQ/L Chloride Level 111 MEQ/L Carbon Dioxide Level 23.6 MEQ/L Anion Gap 9 MEQ/L Estimat Glomerular Filtration Rate 126 ML/MIN Serum Osmolality 290 MOSM/KG Test 04/17/17 05:50 04/17/17 06:05 Blood Gas Puncture Site IRINA Blood Gas Patient Temperature 98.6 Blood Gas HCO3 18 mmol/L Blood Gas Base Excess -6.5 mmol/L Blood Gas Oxygen Saturation 97 % Arterial Blood pH 7.37 Arterial Blood Partial Pressure CO2 32 mmHg Arterial Blood Partial Pressure O2 164 mmHg Arterial Blood Oxygen Content 14.7 Vol % Arterial Blood Carboxyhemoglobin 1.1 % Arterial Blood Methemoglobin 1.1 % Blood Gas Hemoglobin 10.5 G/DL Oxygen Delivery Device VENTILATOR Blood Gas Ventilator Setting SEE COMMENT Blood Gas Inspired Oxygen 50 % White Blood Count 22.1 TH/MM3 Red Blood Count 3.20 MIL/MM3 Hemoglobin 9.7 GM/DL Hematocrit 28.4 % Mean Corpuscular Volume 88.8 FL Mean Corpuscular Hemoglobin 30.3 PG Mean Corpuscular Hemoglobin Concent 34.1 % Red Cell Distribution Width 15.1 % Platelet Count 252 TH/MM3 Mean Platelet Volume 7.9 FL Blood Urea Nitrogen 8 MG/DL Creatinine 0.69 MG/DL Random Glucose 152 MG/DL Total Protein 5.3 GM/DL Calcium Level 7.1 MG/DL Phosphorus Level 2.1 MG/DL Magnesium Level 2.1 MG/DL Sodium Level 140 MEQ/L Potassium Level 4.0 MEQ/L Chloride Level 111 MEQ/L Carbon Dioxide Level 18.5 MEQ/L Anion Gap 11 MEQ/L Estimat Glomerular Filtration Rate 113 ML/MIN Serum Osmolality 291 MOSM/KG Protein Corrected Calcium 8.1 MG/DL (Lacho Lacey) Medical Decision Making Impression and Plan Impression: 1. 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 Dementia 4. Cardiac murmur Patient remains obtunded but sedated, withdraws lower extremities to noxious stimulation. Reviewed labs for today. Significant leukocytosis. Interval drop in haemoglobin. Sodium 140. Hypophosphatemia. CT brain demonstrated significant mass effect with downward herniation. KWAME drain output for the past 24 hrs is 75 mL for #1 and 50 mL for #2 as of this morning. POD #3 () s/p: Left frontoparietal craniotomy for evacuation of subacute on chronic subdural hematoma Postoperative Diagnosis: (1) Subdural hematoma, chronic (2) Acute subdural hematoma 1. Left hemisphere subacute on chronic subdural hematoma 2. Acute right frontal subdural hematoma POD #0 () s/p: Revision left frontoparietal craniotomy evacuation of recurrent left hemisphere subdural hematoma Postoperative Diagnosis: (1) Acute subdural hematoma Recurrent left hemisphere subdural hematoma Plan: Discussed plan of care with Nursing. Primary management per Shuttle Truck Driver. Neuro checks. Repeat CT brain for any decline in neuro status. Monitor KWAME drain output. Mechanical DVT prophylaxis. Hold pharmacologic DVT prophylaxis. Stress ulcer prophylaxis. (Lacho Lacey) Impression and Plan The exam, history, and the medical decision-making described in the above note were completed with the assistance of the mid-level provider. I reviewed and agree with the findings presented. I attest that I had a [id number] encounter with the patient on the same day, and personally performed and documented my assessment and findings in the medical record. He is intubated and sedated. Mild eye opening to voice and sternal rub. Not following commands No purposeful movements of the extremities. Minimal withdrawal upper extremities to deep pain 04/17/17 CT scan head images reveal a further recurrent that more focal approximate 13 mm left frontal acute subdural hematoma with some pneumocephalus. More chronic hematoma layered out over the left occipital region. Midline shift is now 5 mm, reduced from approximately 10-12 mm prior to his most recent surgery. Continue drains. Continue sedation and ventilatory support. On seizure prophylaxis Ulcer prophylaxis None chemical DVT prophylaxis Monitor sodium (Sylvester Odom MD) Lacho Lacey Apr 17, 2017 09:02 Sylvester Odom MD Apr 17, 2017 19:47
[2017-04-17] MEDS ORDERED: DEXTROSE 50% IN WATER 50 ML VIAL(D50) IV PUSH PRN (11:30)
[2017-04-17] MEDS ORDERED: GLUCAGON 1 MG/ML VIAL OTHER PRN (11:30)
[2017-04-17] MEDS ORDERED: CALCIUM GLUCONATE INJ 1 GM in SODIUM CHLORIDE 0.9% INJ 100 ML IV ONE (12:00)
--- NOTE | 2017-04-17 14:25 | HHI.CCPN ---
Subjective Remarks/Hospital Course 04/12: 71-year-old male presents for evaluation after he fell hitting his head. Per family report they were in the bathroom trying to change his undergarments when he slipped and fell hitting his head. He is not on anticoagulant. The patient is pleasantly confused and patient's daughter states this is his baseline. He has had no altered mental status since the fall. No vomiting. The patient reports a mild headache without radiation. No neck pain or back pain. He has been ambulatory without difficulty since the fall. The CT head performed in the emergency department shows bilateral subdural hematomas in addition to parafalcine subdural hematoma, left frontal and temporal lobe intraparenchymal hemorrhages and subfalcine herniation from [id number]. 04/13: Resting in bed comfortably at the time of my evaluation this morning. Confused, does not know the year. Knows he is in the hospital. Moves all 4 extremity's. Does not appear to be in any acute distress. 04/14: Afebrile. The patient continues to be confused but easily following commands notable systolic ejection murmur, echo pending. Patient scheduled for neurosurgical intervention this afternoon. 04/15: Tmax 99.3. The patient status post craniotomy with evacuation of subdural hematoma last evening, remained intubated, only on sedation with propofol infusion and requiring low-dose phenylephrine to maintain map greater than 65. Sedation was briefly lightened last evening postoperatively, and the patient was extremely agitated. IV fluids changed from D5W to normal saline with [address] brain performed. INR pending. 04/16: Tmax 99.8 Patient agitated during the night , swinging his legs out of the bed while on maximum doses of propofol infusion, fentanyl infusion low-dose added this a.m. Patient's diet advance will begin tube feeds this a.m. The patient was noted to have multifocal PVCs intermittent during the night potassium level 3.2 currently being repleted with K-Phos. 04/17: Tmax 101.6. The patient underwent emergent craniotomy for evacuation of acute recurrent left subdural hematoma last evening. The patient continues on 3 % normal saline, with serial sodium and osmole is being followed. Currently weaning slowly sedation for neuro assessment. Patient noted to have a significant elevation in WBC count of 22, blood cultures urine cultures and sputum cultures obtained. Chest x-ray now showing bilateral lung opacities edema versus possible infectious process being ruled out. Echo revealed patient has severe aortic stenosis with a roommate mean gradient of 44. The patient continues on phenylephrine for vasopressors support at this time. Objective Vital Signs Date Time Temp Pulse Resp B/P (MAP) Pulse Ox O2 Delivery O2 Flow Rate FiO2 04/17/17 11:28 99 30 04/17/17 06:41 72 107/47 04/17/17 04:00 99.1 16 04/16/17 19:00 Mechanical Ventilator Intake and Output 04/17/17 04/17/17 04/18/17 08:00 16:00 00:00 Intake Total 4396 ml 288 ml Output Total 1580 ml Balance 2816 ml 288 ml Result Diagram: 04/17/17 0605 04/17/17 1219 Other Results Laboratory Tests Test 04/17/17 05:50 04/17/17 10:45 Blood Gas Puncture Site IRINA ART LINE Blood Gas Patient Temperature 98.6 98.6 Blood Gas HCO3 18 mmol/L (22-26) 17 mmol/L (22-26) Blood Gas Base Excess -6.5 mmol/L (-2-2) -7.2 mmol/L (-2-2) Blood Gas Oxygen Saturation 97 % (90-100) 97 % (90-100) Arterial Blood pH 7.37 (7.380-7.420) 7.38 (7.380-7.420) Arterial Blood Partial Pressure CO2 32 mmHg (38-42) 29 mmHg (38-42) Arterial Blood Partial Pressure O2 164 mmHg (61-120) 104 mmHg (61-120) Arterial Blood Oxygen Content 14.7 Vol % (12.0-20.0) 11.8 Vol % (12.0-20.0) Arterial Blood Carboxyhemoglobin 1.1 % (0-4) 1.2 % (0-4) Arterial Blood Methemoglobin 1.1 % (0-2) 1.2 % (0-2) Blood Gas Hemoglobin 10.5 G/DL (12.0-16.0) 8.5 G/DL (12.0-16.0) Oxygen Delivery Device VENTILATOR VENTILATOR Blood Gas Ventilator Setting SEE COMMENT PRVC16/550/1.0/+5 Blood Gas Inspired Oxygen 50 % 30 % Imaging Last Impressions Chest X-Ray 04/17/17 0109 Signed Impressions: Service Date/Time: Monday, April 17, 2017 01:16 - CONCLUSION: 1. Right IJ central venous catheter in place with the tip in the region of proximal SVC. No evidence of pneumothorax. 2. Patchy bilateral lower lung zone opacity. David Meade MD Head CT 04/16/17 0000 Signed Impressions: Service Date/Time: April 21:08 - CONCLUSION: 1. Significant mass effect is now identified with herniation as described above. The findings of this study were discussed with Dr. Corral at 9: 2. 35 PM on April 16, 2017. Dharmesh Muhammad MD Cervical Spine CT 04/12/17 0000 Signed Impressions: Service Date/Time: Wednesday, April 12, 2017 17:36 - CONCLUSION: Degenerative spondylosis without any significant compromise to the thecal sac or the exiting nerve roots. Maria Guadalupe Alvarado MD Last Impressions Chest X-Ray 04/16/17 0600 Signed Impressions: Service Date/Time: April 04:50 - CONCLUSION: Lines and tubes. Clear lungs. Da Ramirez Jr., MD Head CT 04/15/17 0600 Signed Impressions: Service Date/Time: Saturday, April 15, 2017 04:27 - CONCLUSION: 1. Interval left craniotomy with surgical drain placement. There is new diffuse subdural hematoma involving the left side beneath the craniotomy bone despite surgical drain placement. 2. Small subdural hemorrhage along the right frontal region. This is slightly larger from the prior study. 3. Reduction in size the midline shift. Da Ramirez Jr., MD Cervical Spine CT 04/12/17 0000 Signed Impressions: Service Date/Time: Wednesday, April 12, 2017 17:36 - CONCLUSION: Degenerative spondylosis without any significant compromise to the thecal sac or the exiting nerve roots. Maria Guadalupe Alvarado MD Last [address] 04/12/17 0000 Signed Impressions: Service Date/Time: Wednesday, April 12, 2017 17:36 - CONCLUSION: Bilateral subdural hematomas in addition to parafalcine subdural hematoma, left frontal and temporal lobe intraparenchymal hemorrhages and subfalcine herniation from [id number]. Maria Guadalupe Alvarado MD Cervical Spine CT 04/12/17 0000 Signed Impressions: Service Date/Time: Wednesday, April 12, 2017 17:36 - CONCLUSION: Degenerative spondylosis without any significant compromise to the thecal sac or the exiting nerve roots. Maria Guadalupe Alvarado MD Objective Remarks GENERAL: Elderly gentleman intubated and sedated SKIN: Warm and dry. HEAD: Atraumatic. Normocephalic. 2 KWAME drains serosanguineous fluid, minimal EYES: Pupils equal and round. No scleral icterus. No injection or drainage. ENT: No nasal bleeding or discharge. Mucous membranes pink and moist. NECK: Trachea midline. No JVD. CARDIOVASCULAR: Regular rate and rhythm. 3/6 ROHAN RESPIRATORY: No accessory muscle use. Clear to auscultation. Breath sounds equal bilaterally. GASTROINTESTINAL: Abdomen soft, non-tender, nondistended. Hepatic and splenic margins not palpable. MUSCULOSKELETAL: Extremities without clubbing, cyanosis, or edema. No obvious deformities. NEUROLOGICAL: GCS 3T. Intubated and sedated, sedation currently being weaned down patient withdraws to pain bilateral lower extremities, positive cough,/gag reflex. No movement of upper extremities at this time Procedures 1/2-left frontoparietal craniotomy with evacuation of subacute on chronic SDH 1/5-@ 0000 emergent craniotomy with evacuation of acute recurrent left subdural hematoma Urinary Catheter: Yes Munoz insert reason: Measure Accurate Output Date of Insertion: Apr 13, 2017 A/P Assessment and Plan TBI -Subdural hematoma S/P Left frontoparietal craniotomy with evacuation of subacute on chronic SDH POD 2 S/P Emergency revision evacuation of acute recurrent left subdural hematoma POD 0 -Neurosurgery following. Dr. Odom - Propofol infusion currently 30 mcgs/min for agitation, attempt to wean off and utilize fentanyl only in the setting of patient with hypotension - Neuro checks per Neurosurgery recommendations. Patient to remain sedated postoperatively at this time - Repeat CT head per neurosurgery-left craniotomy with surgical drain. New diffuse subdural hematoma involving left side. Small subdural right frontal larger than prior. Reduction in MLS - Seizure prophylaxis with Keppra -1/5-3% normal saline at 20 cc an hour, obtain every 6 hours serum osmole and serum sodium level -Monitor KWAME drainage COPD - No exacerbation - No steroids indicated - DuoNeb scheduled and when necessary Dementia - Continue Aricept H/O Hypertension Severe Hypotension - Valsartan 80 Mg Tab 80 Mg PO DAILY ( parameters to hold for SBP < 120mmHg) -1/2 EKG prolonged QT 475, continue close monitoring - 04/16 Echo-severe aortic stenosis EF 50- 55 % Severe left ventricular concentric hypertrophy, aortic mean gradient of 44 -Patient currently on phenylephrine at 50 mics, and tin you to wean as tolerated Psychosis - Trazodone -on hold - Zoloft Diabetes mellitus - Hold metformin while in the ICU - Insulin sliding scale-low dose regimen Malnutrition -Insert OGT - Continue tube feeds Glucerna 1.5 with goal 60cc/hr -Discontinued 0.9 normal saline at 42 cc/hour DVT GI prophylaxis - Teds SCDs - No pharmacological DVT prophylaxis due to subdural hematoma - Pepcid BID Further recommendations per neurosurgery. Dispo: my billing statement This patient remains critically ill with one or more organ systems which are or may become a threat to life. I have spent in excess of 41 minutes discontinuously in the care and management of this patient. This time is exclusive of procedures, and includes, but is not limited to, evaluation of the patient, review of the medical record, discussions with family, consultants, nursing staff, or respiratory therapy, and documentation in the medical record. Discussed with EXECUTIVE CREATIVE DIRECTOR at bedside (Eleonora), and patient's daughter at bedside. All questions answered. Physician Meghan Antunez MD Apr 17, 2017 14:24
[2017-04-17 18:23] LABS: MAGNESIUM 1.9 MG/DL (1.5-2.5)
--- NOTE | 2017-04-17 18:42 | RADRPT ---
EXAM DATE/TIME: 04/17/2017 18:15 [facility] COMPARISON: No previous studies available for comparison. INDICATIONS : Post craniotomy surgery, subdural hematomas. RADIATION DOSE: 69.15 CTDIvol (mGy) MEDICAL HISTORY : Carcinoma, prostate. Diabetes mellitus type 2. Subdural hematomas. SURGICAL HISTORY : Craniotomy. ENCOUNTER: Initial ACUITY: 1 day PAIN SCALE: Non-responsive LOCATION: Bilateral cranial TECHNIQUE: Multiple contiguous axial images were obtained of the head. Using automated exposure control and adj ustment of the mA and/or kV according to patient size, radiation dose was kept as low as reasonably a chievable to obtain optimal diagnostic quality images. DICOM format image data is available electro nically for review and comparison. FINDINGS: Comparison is April 16. There is any revision of 2 left-sided subdural drains with decrease in previ ous size of left subdural hematoma. There is also pneumocephalus. There is no new intracranial hemorr wendy. Midline shift has decreased from about 13 mm to 7 mm. Post craniotomy changes on the left. CONCLUSION: 1. Revision of left subdural drain with decrease in size of left subdural hematoma and decrease of mi dline shift from about 13 mm to 7 mm left to right. There is left-sided cerebral swelling and sulcal effacement. Lalo Loo MD on April 17, 2017 at 18:36 Board Certified Radiologist. This report was verified electronically.
--- NOTE | 2017-04-17 19:17 | MG ---
cc: ARIE PACE M.D. Lab No:[id number] Date: 04/17/2017 Age: Sex: M Race: TECHNIQUE: A 17 channel EEG. DESCRIPTION: The background rhythm is generally slow in the delta frequency at 3-4 Hz. Amplitude is roughly 20 microvolts. No lateralizing features are seen and no epileptiform discharges are present. INTERPRETATION: Abnormal study consistent with a severe encephalopathy. MD BETH Burger/HECTOR /5:56 PM /6:49 PM
[2017-04-17] MEDS: DONEPEZIL HCL 5 MG TAB PO SCH (21:48)
--- NOTE | 2017-04-17 22:41 | EKG ---
Date Performed: 04/16/2017 Time Performed: 19:51:48 PTAGE: 71 years EKG: Sinus tachycardia with frequent PVCs. RBBB with left anterior fascicular block Anterior inf arct - age undetermined Possible inferior infarct - age undetermined Abnormal ECG PREVIOUS TRACING : 04/14/2017 05.26 Compared to the previous tracing sinus tachycardia and RBBB is new DOCTOR: Quang Mcdonald Interpretating Date/Time 04/17/2017 22:39:58
[2017-04-18] VITALS (19 sets, daily range): BP systolic 103–169; BP diastolic 41–59; PULSE 80–115; RESP 16–22; TEMP 97.4–99.8; O2SAT 93–100
[2017-04-18] MEDS: PHENYLEPHRINE INJ 40 MG in SODIUM CHLORID 0.9% 500 ML INJ 496 ML IV PRN (03:00)
[2017-04-18] MEDS: CHLORHEXIDINE GLUCONATE 2 % 1 PACK (2 CLOTHS) TOP SCH (04:00)
[2017-04-18] MEDS: RESP: ALBUTEROL 2.5 MG/IPRATROPIUM 0.5 MG NEB (SCH) INH ×4 (04:30→20:18)
--- NOTE | 2017-04-18 05:15 | RADRPT ---
EXAM DATE/TIME: 04/18/2017 03:37 [facility] COMPARISON: CHEST SINGLE AP, April 17, 2017, 1:16. INDICATIONS : Respiratory failure. MEDICAL HISTORY : None. SURGICAL HISTORY : None. ENCOUNTER: Subsequent ACUITY: 3 days PAIN SCORE: Non-responsive. LOCATION: Bilateral chest FINDINGS: Single AP view of the chest. Endotracheal tube, nasogastric tube, right IJ central venous catheter re main in place. Persistent bilateral lower lung zone pulmonary parenchymal opacity. No significant int erval change. CONCLUSION: No significant change with persistent patchy bilateral lower lung zone opacity. David Meade MD on April 18, 2017 at 5:11 Board Certified Radiologist. This report was verified electronically.
[2017-04-18 05:53] LABS: AUTOMATED NEUTROPHIL # 11.2 TH/MM3 (1.8-7.7); BASOPHIL % 0.2 % (0.0-2.0); EOSINOPHIL % 0.3 % (0.0-4.0); HEMATOCRIT 26.8 % (39.0-51.0); HEMOGLOBIN 9.1 GM/DL (13.0-17.0); LYMPH % 2.6 % (9.0-44.0); LYMPHOCYTE # 0.3 TH/MM3 (1.0-4.8); MEAN CELL VOLUME 88.5 FL (80.0-100.0); MEAN CORPUSCULAR HEMOGLOBIN 30.1 PG (27.0-34.0); MEAN PLATELET VOLUME 7.9 FL (7.0-11.0); MONO % 6.9 % (0.0-8.0); MONOCYTE # 0.9 TH/MM3 (0-0.9); PLATELET COUNT 181 TH/MM3 (150-450); RED BLOOD COUNT 3.02 MIL/MM3 (4.50-5.90); RED CELL DISTRIBUTION WIDTH 14.8 % (11.6-17.2); WHITE BLOOD COUNT 12.5 TH/MM3 (4.0-11.0)
[2017-04-18] MEDS: 3% SALINE INJ 500 ML IV SCH (05:57)
[2017-04-18 06:21] LABS: BICARBONATE 19.6 MEQ/L (21.0-32.0); CALCIUM 7.8 MG/DL (8.5-10.1); CREATININE 0.67 MG/DL (0.60-1.30); MAGNESIUM 1.9 MG/DL (1.5-2.5)
[2017-04-18 06:22] LABS: PHOSPHORUS 1.9 MG/DL (2.5-4.9)
[2017-04-18] MEDS: INSULIN ASPART SUPPLEMENTAL SCALE SQ SCH ×4 (08:00→21:00)
[2017-04-18] MEDS: VALSARTAN 80 MG TAB PO SCH (09:00)
[2017-04-18] MEDS: DOCUSATE SODIUM 50 MG/SENNA 8.6 MG TAB PO SCH ×2 (09:11→21:40)
[2017-04-18] MEDS: PRAVASTATIN SOD 40 MG TAB PO SCH (09:11)
[2017-04-18] MEDS: levETIRAcetam INJ 500 MG in SODIUM CHLORIDE 0.9% INJ 100 ML IV SCH ×2 (09:11→21:38)
[2017-04-18] MEDS: TOLTERODINE TARTRATE 4 MG CAP LA PO SCH (09:11)
[2017-04-18] MEDS: GABAPENTIN 400 MG CAP PO SCH ×3 (09:11→18:05)
[2017-04-18] MEDS: SERTRALINE HCL 50 MG TAB PO SCH (09:11)
[2017-04-18] MEDS: FAMOTIDINE 20 MG/2 ML VIAL IV PUSH SCH ×2 (09:12→21:40)
[2017-04-18] MEDS: SODIUM CHLORIDE 0.9% FLUSH 10 ML FLUSH IV FLUSH SCH ×2 (09:12→21:39)
[2017-04-18] MEDS: METOPROLOL TARTRATE 5 MG/5 ML VIAL IV PUSH PRN ×2 (09:31→15:52)
[2017-04-18] MEDS: fentaNYL DRIP 250 ML IV PRN (09:32)
--- NOTE | 2017-04-18 09:32 | HHI.CCPN ---
Subjective Remarks/Hospital Course 04/12: 71-year-old male presents for evaluation after he fell hitting his head. Per family report they were in the bathroom trying to change his undergarments when he slipped and fell hitting his head. He is not on anticoagulant. The patient is pleasantly confused and patient's daughter states this is his baseline. He has had no altered mental status since the fall. No vomiting. The patient reports a mild headache without radiation. No neck pain or back pain. He has been ambulatory without difficulty since the fall. The CT head performed in the emergency department shows bilateral subdural hematomas in addition to parafalcine subdural hematoma, left frontal and temporal lobe intraparenchymal hemorrhages and subfalcine herniation from [id number]. 04/13: Resting in bed comfortably at the time of my evaluation this morning. Confused, does not know the year. Knows he is in the hospital. Moves all 4 extremity's. Does not appear to be in any acute distress. 04/14: Afebrile. The patient continues to be confused but easily following commands notable systolic ejection murmur, echo pending. Patient scheduled for neurosurgical intervention this afternoon. 04/15: Tmax 99.3. The patient status post craniotomy with evacuation of subdural hematoma last evening, remained intubated, only on sedation with propofol infusion and requiring low-dose phenylephrine to maintain map greater than 65. Sedation was briefly lightened last evening postoperatively, and the patient was extremely agitated. IV fluids changed from D5W to normal saline with [address] brain performed. INR pending. 04/16: Tmax 99.8 Patient agitated during the night , swinging his legs out of the bed while on maximum doses of propofol infusion, fentanyl infusion low-dose added this a.m. Patient's diet advance will begin tube feeds this a.m. The patient was noted to have multifocal PVCs intermittent during the night potassium level 3.2 currently being repleted with K-Phos. 04/17: Tmax 101.6. The patient underwent emergent craniotomy for evacuation of acute recurrent left subdural hematoma last evening. The patient continues on 3 % normal saline, with serial sodium and osmole is being followed. Currently weaning slowly sedation for neuro assessment. Patient noted to have a significant elevation in WBC count of 22, blood cultures urine cultures and sputum cultures obtained. Chest x-ray now showing bilateral lung opacities edema versus possible infectious process being ruled out. Echo revealed patient has severe aortic stenosis with a roommate mean gradient of 44. The patient continues on phenylephrine for vasopressors support at this time. 04/18: Last evening, the patient went into A. fib RVR, heart rate low 100s, with self resolution. This a.m. the patient continues to have sinus rhythm/sinus tachycardia 90-105 with frequent multifocal PVCs. Electrolytes within normal limits. Given the significant medical history for severe aortic stenosis metoprolol 2.5 mg IV for rapid heart rate instituted. The patient continues on phenylephrine infusion for maintenance of a map greater than 65. Propofol is currently being weaned off. EEG revealed last night severe encephalopathy. No change in neurological status but patient still is under sedation patient withdraws to pain bilateral lower extremities and now has spontaneous eye opening intermittently. Leukocytosis notably is resolving. Objective Vital Signs Date Time Temp Pulse Resp B/P (MAP) Pulse Ox O2 Delivery O2 Flow Rate FiO2 04/18/17 08:31 97 30 04/18/17 06:00 115 04/18/17 04:00 99.7 22 166/54 (91) 04/17/17 19:00 Mechanical Ventilator Intake and Output 04/18/17 04/18/17 04/19/17 08:00 16:00 00:00 Intake Total 1783 ml Output Total 1365.0 ml Balance 418.0 ml Result Diagram: 04/18/17 0450 04/18/17 0450 Other Results Laboratory Tests Test 04/17/17 10:45 Blood Gas Puncture Site ART LINE Blood Gas Patient Temperature 98.6 Blood Gas HCO3 17 mmol/L (22-26) Blood Gas Base Excess -7.2 mmol/L (-2-2) Blood Gas Oxygen Saturation 97 % (90-100) Arterial Blood pH 7.38 (7.380-7.420) Arterial Blood Partial Pressure CO2 29 mmHg (38-42) Arterial Blood Partial Pressure O2 104 mmHg (61-120) Arterial Blood Oxygen Content 11.8 Vol % (12.0-20.0) Arterial Blood Carboxyhemoglobin 1.2 % (0-4) Arterial Blood Methemoglobin 1.2 % (0-2) Blood Gas Hemoglobin 8.5 G/DL (12.0-16.0) Oxygen Delivery Device VENTILATOR Blood Gas Ventilator Setting PRVC16/550/1.0/+5 Blood Gas Inspired Oxygen 30 % Imaging Last Impressions Chest X-Ray 04/17/17 0109 Signed Impressions: Service Date/Time: Monday, April 17, 2017 01:16 - CONCLUSION: 1. Right IJ central venous catheter in place with the tip in the region of proximal SVC. No evidence of pneumothorax. 2. Patchy bilateral lower lung zone opacity. David Meade MD Head CT 04/16/17 0000 Signed Impressions: Service Date/Time: April 21:08 - CONCLUSION: 1. Significant mass effect is now identified with herniation as described above. The findings of this study were discussed with Dr. Corral at 9: 2. 35 PM on April 16, 2017. Dharmesh Muhammad MD Cervical Spine CT 04/12/17 0000 Signed Impressions: Service Date/Time: Wednesday, April 12, 2017 17:36 - CONCLUSION: Degenerative spondylosis without any significant compromise to the thecal sac or the exiting nerve roots. Maria Guadalupe Alvarado MD Last Impressions Chest X-Ray 04/16/17 0600 Signed Impressions: Service Date/Time: April 04:50 - CONCLUSION: Lines and tubes. Clear lungs. Da Ramirez Jr., MD Head CT 04/15/17 0600 Signed Impressions: Service Date/Time: Saturday, April 15, 2017 04:27 - CONCLUSION: 1. Interval left craniotomy with surgical drain placement. There is new diffuse subdural hematoma involving the left side beneath the craniotomy bone despite surgical drain placement. 2. Small subdural hemorrhage along the right frontal region. This is slightly larger from the prior study. 3. Reduction in size the midline shift. Da Ramirez Jr., MD Cervical Spine CT 04/12/17 0000 Signed Impressions: Service Date/Time: Wednesday, April 12, 2017 17:36 - CONCLUSION: Degenerative spondylosis without any significant compromise to the thecal sac or the exiting nerve roots. Maria Guadalupe Alvarado MD Last [address] 04/12/17 0000 Signed Impressions: Service Date/Time: Wednesday, April 12, 2017 17:36 - CONCLUSION: Bilateral subdural hematomas in addition to parafalcine subdural hematoma, left frontal and temporal lobe intraparenchymal hemorrhages and subfalcine herniation from [id number]. Maria Guadalupe Alvarado MD Cervical Spine CT 04/12/17 0000 Signed Impressions: Service Date/Time: Wednesday, April 12, 2017 17:36 - CONCLUSION: Degenerative spondylosis without any significant compromise to the thecal sac or the exiting nerve roots. Maria Guadalupe Alvarado MD Objective Remarks GENERAL: Elderly gentleman intubated and sedated currently on propofol and fentanyl infusions for ventilator synchrony. Propofol being weaned currently off SKIN: Warm and dry. HEAD: Atraumatic. Normocephalic. 2 KWAME drains serosanguineous fluid, minimal EYES: Pupils equal and round. No scleral icterus. No injection or drainage. ENT: No nasal bleeding or discharge. Mucous membranes pink and moist. NECK: Trachea midline. No JVD. CARDIOVASCULAR: Regular rate and rhythm. 3/6 ROHAN RESPIRATORY: No accessory muscle use. Clear to auscultation. Breath sounds equal bilaterally. GASTROINTESTINAL: Abdomen soft, non-tender, nondistended. Hepatic and splenic margins not palpable. MUSCULOSKELETAL: Extremities without clubbing, cyanosis, or edema. No obvious deformities. NEUROLOGICAL: GCS 3T. Intubated and sedated, sedation currently being weaned down patient withdraws to pain bilateral lower extremities, positive cough,/gag reflex. No movement of upper extremities, spontaneous eye opening Procedures 1/2-left frontoparietal craniotomy with evacuation of subacute on chronic SDH 04/17-@ 0000 emergent craniotomy with evacuation of acute recurrent left subdural hematoma Date of Insertion: Apr 13, 2017 A/P Assessment and Plan TBI -Subdural hematoma S/P Left frontoparietal craniotomy with evacuation of subacute on chronic SDH POD 3 S/P Emergency revision evacuation of acute recurrent left subdural hematoma POD 1 -Neurosurgery following. Dr. Odom - Propofol infusion currently 30 mcgs/min for agitation, attempt to wean off and utilize fentanyl only in the setting of patient with hypotension. Lies fentanyl infusion for analgesia/ sedation and ventilator synchrony - Neuro checks per Neurosurgery recommendations. - Daily sedation vacation-and to discontinue propofol - 04/17, 04/[address] head per neurosurgery-left craniotomy with surgical drain. New diffuse subdural hematoma involving left side. Small subdural right frontal larger than prior. Reduction in MLS - Seizure prophylaxis with Keppra -1/5-3% normal saline at 20 cc an hour, obtain every 6 hours serum osmole and serum sodium level -Monitor KWAME drainage - 04/18 EEG-severe encephalopathy COPD - No exacerbation - No steroids indicated - DuoNeb scheduled and when necessary -As x-rays and ABGs when clinically indicated Dementia - Hold Aricept H/O Hypertension Severe Hypotension Sinus tachycardia - Valsartan 80 Mg Tab 80 Mg PO DAILY ( parameters to hold for SBP < 120mmHg) -04/14 EKG prolonged QT 475, continue close monitoring - 04/16 Echo-severe aortic stenosis EF 50- 55 % Severe left ventricular concentric hypertrophy, aortic mean gradient of 44 -Patient currently on phenylephrine at 50 mics, and tin you to wean as tolerated -Initiate metoprolol 2.5 mg every 6 hours when necessary for heart rate greater than 100bpm -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 Dispo: my billing statement This patient remains critically ill with one or more organ systems which are or may become a threat to life. I have spent in excess of 39 minutes discontinuously in the care and management of this patient. This time is exclusive of procedures, and includes, but is not limited to, evaluation of the patient, review of the medical record, discussions with family, consultants, nursing staff, or respiratory therapy, and documentation in the medical record. Discussed with TUMBLER OPERATOR at bedside (Eleonora/ Adina), at bedside. All questions answered. Physician Meghan Antunez MD Apr 18, 2017 09:32
--- NOTE | 2017-04-18 12:04 | HHI.NSPN ---
(Rossi Tavarez) Note Status Status: Progress Note (Rossi Tavarez) Status: Progress Note (Dimitry Matamoros MD) Interval History Interval History 04/12: Mr. Hope is a 71-year-old male who presented to the emergency room today after he fell at home in the presence of his daughter. She states that he lost his balance while trying to put some close on, and fell and struck his head. There was no loss of consciousness. No seizure activity or nausea or emesis reported. The patient has baseline dementia and confusion, but no definite overall change in his mentation after the fall earlier today, according to his daughter, who he lives with. He presently has no complaint of headache. He does have some chronic neck and back pain. 04/13: The patient was examined in the presence of the family today and a more detailed history has been obtained. They indicate chronic progressive dementia to the point that the patient has had to move in with his daughter earlier this year. He cannot care for himself. He is usually quite confused, conversing with only a few words or short sentences and unable to stay on task with conversations. He is usually very active, fidgeting constantly. They state that his mental status today is not significantly changed from his overall baseline. He did go to the emergency room a couple of weeks ago at [facility] due to some pressure sensation or frontal headaches and was diagnosed with sinus congestion. A CT scan of the head was not obtained. He has had no definite falls over the past few weeks up until yesterday. 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 Post-operatively he returned to [facility] for further care and monitoring. 04/15: This morning the patient is obtunded and has no sedation infusing. He does withdraw to noxious stimulation. He does not open his eyes but does have facial grimacing and turns his head to noxious stimulation. ADDENDUM at 1854: Patient was sedated with propofol 50 mcg/kg/min when seen, the pump was not visible at the time. BET. 04/16: When seen the patient is obtunded but does have the propofol drip infusing. Nursing reports that he moves all extremities but does become agitated when the propofol is weaned down. He moves all extremities to noxious stimulation when seen but did not follow any commands. 04/17: The patient remains obtunded and continues to be sedated with a propofol drip. He is now on phenylephrine for blood pressure support. He does not respond to commands and only withdraws the lower extremities to noxious stimulation. He does have some facial grimacing but no eye opening to noxious stimulation. He did go emergently late last night/early this morning for a revision of the left frontoparietal craniotomy for evacuation of a recurrent left hemisphere subdural haematoma. 04/18/17: intubated, propofol just turned off, intermittent movement to ext per nursing, not opening eyes. (Rossi Tavarez) Labs, Micro, & Vital Signs Results Date Time Temp Pulse Resp B/P (MAP) Pulse Ox O2 Delivery O2 Flow Rate FiO2 04/18/17 08:31 97 30 04/18/17 06:00 115 04/18/17 04:30 93 30 04/18/17 04:00 99.7 110 22 94 166/54 (91) 04/18/17 04:00 110 04/18/17 04:00 30 04/18/17 03:00 94 124/50 04/18/17 02:00 88 04/18/17 00:00 92 04/18/17 00:00 99.8 92 16 96 169/41 (83) 04/18/17 00:00 30 04/17/17 23:41 97 30 04/17/17 22:00 90 04/17/17 20:00 91 04/17/17 20:00 30 04/17/17 20:00 99.7 91 17 95 116/45 (68) 04/17/17 19:51 96 30 04/17/17 19:00 95 Mechanical Ventilator 30 04/17/17 18:38 100 100 04/17/17 18:00 112 04/17/17 16:07 100 30 04/17/17 16:00 30 04/17/17 16:00 86 04/17/17 16:00 98.8 86 19 131/60 (83) 04/17/17 14:00 88 04/17/17 12:00 50 04/17/17 12:00 75 04/17/17 12:00 98.6 78 17 99 120/57 (78) Constitutional Vital Signs Date Time Temp Pulse Resp B/P (MAP) Pulse Ox O2 Delivery O2 Flow Rate FiO2 04/18/17 08:31 97 30 04/18/17 06:00 115 04/18/17 04:30 93 30 04/18/17 04:00 99.7 110 22 94 166/54 (91) 04/18/17 04:00 110 04/18/17 04:00 30 04/18/17 03:00 94 124/50 04/18/17 02:00 88 04/18/17 00:00 92 04/18/17 00:00 99.8 92 16 96 169/41 (83) 04/18/17 00:00 30 04/17/17 23:41 97 30 04/17/17 22:00 90 04/17/17 20:00 91 04/17/17 20:00 30 04/17/17 20:00 99.7 91 17 95 116/45 (68) 04/17/17 19:51 96 30 04/17/17 19:00 95 Mechanical Ventilator 30 04/17/17 18:38 100 100 04/17/17 18:00 112 04/17/17 16:07 100 30 04/17/17 16:00 30 04/17/17 16:00 86 04/17/17 16:00 98.8 86 19 131/60 (83) 04/17/17 14:00 88 04/17/17 12:00 50 04/17/17 12:00 75 04/17/17 12:00 98.6 78 17 99 120/57 (78) (Rossi Tavarez) Review of Systems ROS Limitations: Intubated (Rossi Tavarez) Physical Exam Mr. Hope is intubated and sedated on propofol. Cranial Nerves: Pupils 2 mm bilaterally sluggish. Eyes appear conjugated. Cervical Spine: soft, supple Motor: His muscle tone and bulk are normal. Sensory: minimal withdrawal to b/l LE to pain Plantars neutral b/l Incision clean and dry. KWAME drains x 2 with moderate serosanguineous drainage. (Rossi Tavarez) Medications Current Medications Current Medications Medications (Trade) Dose Ordered Sig/Ashli Route PRN Reason Start Time Stop Time Status Last Admin Dose Admin Levetriacetam (Keppra) 500 mg Q12HR PO 04/12/17 21:00 Future Hold 04/14/17 09:56 Donepezil HCl (Aricept) 10 mg HS PO 04/12/17 21:00 Future Hold 04/17/17 21:48 Gabapentin (Neurontin) 400 mg TID PO 04/13/17 09:00 04/18/17 09:11 Pravastatin Sodium (Pravachol) 40 mg DAILY PO 04/13/17 09:00 04/18/17 09:11 Sertraline HCl (Zoloft) 150 mg DAILY PO 04/13/17 09:00 Future Hold 04/18/17 09:11 Valsartan (Diovan) 80 mg DAILY PO 04/13/17 09:00 04/16/17 09:29 Trazodone HCl (Desyrel) 100 mg HS PO 04/12/17 21:00 Future Hold 04/13/17 20:18 Tolterodine Tartrate (Detrol La) 4 mg DAILY PO 04/13/17 09:00 04/18/17 09:11 Sodium Chloride (NS Flush) 2 ml UNSCH PRN IV FLUSH FLUSH AFTER USING IV ACCESS 04/12/17 20:30 Sodium Chloride (NS Flush) 2 ml BID IV FLUSH 04/12/17 21:00 04/18/17 09:12 Acetaminophen (Tylenol) 650 mg Q6H PRN PO PAIN 1-5 AND/OR FEVER >101F 04/12/17 20:30 Morphine Sulfate (Morphine Inj) 2 mg Q2H PRN IV PAIN 6-10 04/12/17 21:00 04/16/17 03:47 Famotidine (Pepcid Inj) 20 mg Q12HR IV PUSH 04/12/17 21:00 04/18/17 09:12 Ondansetron HCl (Zofran Inj) 4 mg Q6H PRN IV PUSH NAUSEA OR VOMITING 04/12/17 20:30 04/14/17 03:35 Albuterol/ Ipratropium (Duoneb Neb) 1 ampule Q2HR NEB PRN INH WHEEZING 04/12/17 20:30 Miscellaneous Information 1 Q361D XX 04/12/17 20:30 Chlorhexidine Gluconate (Chlorhexidine 2% Cloth) Taper DAILY@04 TOP 04/13/17 04:00 04/09/18 03:59 Chlorhexidine Gluconate (Chlorhexidine 2% Cloth) 3 pack UNSCH PRN TOP HYGIENIC CARE 04/12/17 20:30 Senna/Docusate Sodium (Julia-Colace) 1 tab BID PO 04/12/17 21:00 04/18/17 09:11 Magnesium Hydroxide (Milk Of Magnesia Liq) 30 ml Q12H PRN PO Mild constipation 04/12/17 20:30 Sennosides (Senokot) 17.2 mg Q12H PRN PO Moderate constipation 04/12/17 20:30 Bisacodyl (Dulcolax Supp) 10 mg DAILY PRN RECTAL SEVERE CONSITIPATION 04/12/17 20:30 Lactulose (Lactulose Liq) 30 ml DAILY PRN PO SEVERE CONSITIPATION 04/12/17 20:30 Levetriacetam 500 mg/Sodium Chloride 105 ml @ 420 mls/hr Q12HR IV 04/14/17 11:00 04/18/17 09:11 Hydralazine HCl (Apresoline Inj) 20 mg Q4H PRN IV PUSH SBP>160, DBP>90 04/14/17 12:30 04/14/17 12:56 Terbutaline Sulfate (Brethine Inj) 1 mg UNSCH PRN SQ For Extravasation 04/14/17 21:15 Propofol 100 ml @ 2.454 mls/ hr TITRATE PRN IV Sedation 04/14/17 22:15 04/17/17 18:58 Potassium Chloride 100 ml @ 50 mls/hr Q2H PRN IV For Potassium 2.8 - 3.2 mEq/L 04/16/17 00:30 Potassium Chloride 100 ml @ 50 mls/hr Q2H PRN IV For Potassium 2.8 - 3.2 mEq/L 04/16/17 00:30 Potassium Bicarb/ Potassium Chloride (K-Lyte Cl Eff) 50 meq UNSCH PRN PO For Potassium 3.3 - 3.5 mEq/L 04/16/17 00:30 04/16/17 14:46 Potassium Chloride 100 ml @ 25 mls/hr UNSCH PRN IV For Potassium 3.3 - 3.5 mEq/L 04/16/17 00:30 Potassium Chloride 100 ml @ 50 mls/hr Q2H PRN IV For Potassium 3.3 - 3.5 mEq/L 04/16/17 00:30 Magnesium Sulfate 4 gm/Sodium Chloride 100 ml @ 50 mls/hr UNSCH PRN IV For Magnesium 0.9 - 1.1 mg/dL 04/16/17 00:30 Magnesium Oxide (Mag-Ox) 800 mg UNSCH PRN PO For Magnesium 1.2 - 1.6 mg/dL 04/16/17 00:30 Magnesium Sulfate 2 gm/Sodium Chloride 100 ml @ 50 mls/hr UNSCH PRN IV For Magnesium 1.2 - 1.6 mg/dL 04/16/17 00:30 Potassium Phosphate (K-Phos) 2,000 mg Q4H PRN PO For Phosphorus < 2.5 mg/dL 04/16/17 00:30 Sodium Phosphate 30 mmol/Sodium Chloride 250 ml @ 42 mls/hr UNSCH PRN IV For Phosphorus < 2.5 mg/dL 04/16/17 00:30 Potassium Phosphate (K-Phos) 2,000 mg UNSCH PRN PO/TUBE SEE LABEL COMMENTS 04/16/17 00:30 04/17/17 18:58 Potassium Phosphate 30 mmol/ Sodium Chloride 260 ml @ 42 mls/hr UNSCH PRN IV SEE LABEL COMMENTS 04/16/17 00:30 04/16/17 01:54 Albuterol/ Ipratropium (Duoneb Neb) 1 ampule Q6HR NEB INH 04/16/17 10:00 04/18/17 08:29 Fentanyl Citrate 250 ml @ 5 mls/hr TITRATE PRN IV SEDATION 04/16/17 08:00 04/18/17 09:32 Phenylephrine HCl 40 mg/Sodium Chloride 500 ml @ 30 mls/hr TITRATE PRN IV Blood pressure management 04/16/17 22:30 04/18/17 03:00 Sodium Chloride 500 ml @ 20 mls/hr CONTINUOUS IV 04/17/17 04:30 04/18/17 05:57 Dextrose (D50w (Vial) Inj) 50 ml UNSCH PRN IV PUSH HYPOGLYCEMIA-SEE COMMENTS 04/17/17 11:30 Glucagon (Glucagon Inj) 1 mg UNSCH PRN OTHER HYPOGLYCEMIA-SEE COMMENTS 04/17/17 11:30 Insulin Aspart (NovoLOG SUPPLEMENTAL SCALE) 1 ACHS SLIDING SCALE SQ 04/17/17 12:00 04/18/17 08:00 Metoprolol Tartrate (Lopressor Inj) 2.5 mg Q6H PRN IV PUSH RAPID HEART RATE 04/18/17 09:15 04/18/17 09:31 (Rossi Tavarez) Medical Decision Making MDM Remarks 71 y/o male with with left craniotomy x 2 for evacuation of subdural hematoma (Rossi Tavarez) Plan Plan Remarks cont critical care mgt start sedation weaning and f/u exam cont KWAME draining cont seizure prophylaxis nonchemical dvt, and ulcer prophylaxis discussed with family in room (Rossi Tavarez) Attending Statement The exam, history, and the medical decision-making described in the above note were completed with the assistance of the mid-level provider. I reviewed and agree with the findings presented. I attest that I had a [id number] encounter with the patient on the same day, and personally performed and documented my assessment and findings in the medical record. (Dimitry Matamoros MD) Rossi Tavarez Apr 18, 2017 12:04 Dimitry Matamoros MD Apr 18, 2017 14:18
--- NOTE | 2017-04-18 13:17 | EKG ---
Date Performed: 04/17/2017 Time Performed: 17:33:34 PTAGE: 71 years EKG: Sinus tachycardia with frequent PVCs with some periods of ventricular bigeminy. Right bundl e branch block Left axis deviation Abnormal ECG PREVIOUS TRACING 04/16/2017 19.51.48 Since previous tracing, no significant change noted DOCTOR: Jai Be Interpretating Date/Time 04/18/2017 13:15:32
--- NOTE | 2017-04-18 13:28 | RADRPT ---
EXAM DATE/TIME: 04/18/2017 13:04 [facility] COMPARISON: CT BRAIN W/O CONTRAST, April 17, 2017, 18:15. INDICATIONS : Post-operative evaluation for left craniotomy. RADIATION DOSE: 50.00 CTDIvol (mGy) MEDICAL HISTORY : Carcinoma, prostate. Cardiovascular disease Hypertension.COPD, diabetes. SURGICAL HISTORY : Craniotomy. ENCOUNTER: Initial ACUITY: 1 day PAIN SCALE: Non-responsive LOCATION: cranial TECHNIQUE: Multiple contiguous axial images were obtained of the head. Using automated exposure control and adj ustment of the mA and/or kV according to patient size, radiation dose was kept as low as reasonably a chievable to obtain optimal diagnostic quality images. DICOM format image data is available electro nically for review and comparison. FINDINGS: There are stable acute subdural hematomas within the frontal regions bilaterally measuring 15mm in gr eatest width on the left and 9 mm in greatest width on the right. Pneumocephalus is noted on the left and subdural drains are again noted. There is subfalcine herniation to the right measuring 5 mm whic h is slightly improved compared to previous examination. Left tentorial subdural is stable. Left post erior parietal subdural is also stable. No ventriculomegaly is noted. CONCLUSION: Stable acute subdural hematomas within the frontal regions bilaterally measuring 15 m m in greatest width on the left and 9 mm in greatest width on the right and resulting in 5 mm of subf alcine herniation to the right which is slightly improved compared to the previous examination. Left posterior parietal and tentorial subdural hematomas are stable also. Adriel Cherry MD on April 18, 2017 at 13:15 Board Certified Radiologist. This report was verified electronically.
[2017-04-18] MEDS ORDERED: LORazepam 2 MG/ML VIAL ONE (13:37)
[2017-04-18] MEDS: SODIUM PHOSPHATE INJ 30 MMOL in SODIUM CHLOR 0.9% 250 ML INJ 240 ML IV PRN (15:48)
[2017-04-18 19:13] LABS: INTERNATIONAL NORMALIZED RATIO 1.1 RATIO; PROTHROMBIN TIME - PATIENT 11.1 SEC (9.8-11.6)
[2017-04-18 20:14] LABS: BACTERIA, URINE FEW /hpf; BILIRUBIN, URINE NEG (NEG); BLOOD, URINE LARGE (NEG); GLUCOSE,URINE 1000 mg/dL (NEG); KETONE, URINE TRACE mg/dL (NEG); MUCUS URINE FEW /lpf (OCC); NITRITE,URINE NEG (NEG); URINE LEUKOCYTE ESTERASE NEG (NEG)
[2017-04-18 20:15] LABS: URINE COLOR RED (YELLW/STRAW)
[2017-04-18 20:16] LABS: WHITE BLOOD CELL CLUMPS FEW
[2017-04-18 21:20] LABS: HEMATOCRIT 23.2 % (39.0-51.0); MEAN CELL VOLUME 88.5 FL (80.0-100.0); MEAN CORPUSCULAR HEMOGLOBIN 30.6 PG (27.0-34.0); MEAN CORPUSCULAR HGB CONC 34.5 % (32.0-36.0); MEAN PLATELET VOLUME 7.7 FL (7.0-11.0); PLATELET COUNT 197 TH/MM3 (150-450); RED BLOOD COUNT 2.62 MIL/MM3 (4.50-5.90); RED CELL DISTRIBUTION WIDTH 15.3 % (11.6-17.2); WHITE BLOOD COUNT 11.2 TH/MM3 (4.0-11.0)
[2017-04-19] VITALS (17 sets, daily range): BP systolic 107–137; BP diastolic 46–55; PULSE 78–117; RESP 16–18; TEMP 97.7–99.5; O2SAT 96–100
[2017-04-19 01:48] LABS: SODIUM (NA) 149 MEQ/L (136-145)
[2017-04-19] MEDS: METOPROLOL TARTRATE 5 MG/5 ML VIAL IV PUSH PRN ×2 (03:49→16:30)
[2017-04-19] MEDS: RESP: ALBUTEROL 2.5 MG/IPRATROPIUM 0.5 MG NEB (SCH) INH ×4 (03:51→20:20)
[2017-04-19] MEDS: CHLORHEXIDINE GLUCONATE 2 % 1 PACK (2 CLOTHS) TOP SCH (04:00)
[2017-04-19 05:28] LABS: HEMATOCRIT 22.5 % (39.0-51.0); HEMOGLOBIN 7.7 GM/DL (13.0-17.0); MEAN CELL VOLUME 89.2 FL (80.0-100.0); MEAN CORPUSCULAR HEMOGLOBIN 30.5 PG (27.0-34.0); MEAN CORPUSCULAR HGB CONC 34.2 % (32.0-36.0); MEAN PLATELET VOLUME 7.8 FL (7.0-11.0); PLATELET COUNT 181 TH/MM3 (150-450); RED BLOOD COUNT 2.52 MIL/MM3 (4.50-5.90); RED CELL DISTRIBUTION WIDTH 15.1 % (11.6-17.2); WHITE BLOOD COUNT 7.3 TH/MM3 (4.0-11.0)
[2017-04-19 05:53] LABS: BICARBONATE 26.3 MEQ/L (21.0-32.0); CREATININE 0.69 MG/DL (0.60-1.30); MAGNESIUM 1.8 MG/DL (1.5-2.5); PHOSPHORUS 1.9 MG/DL (2.5-4.9)
[2017-04-19] MEDS: SODIUM PHOSPHATE INJ 30 MMOL in SODIUM CHLOR 0.9% 250 ML INJ 240 ML IV PRN ×2 (06:32→08:11)
[2017-04-19] MEDS: 3% SALINE INJ 500 ML IV SCH ×2 (07:02→20:00)
[2017-04-19] MEDS: GABAPENTIN 400 MG CAP PO SCH ×3 (08:11→17:28)
[2017-04-19] MEDS: FAMOTIDINE 20 MG/2 ML VIAL IV PUSH SCH ×2 (08:11→22:48)
[2017-04-19] MEDS: PRAVASTATIN SOD 40 MG TAB PO SCH (08:11)
[2017-04-19] MEDS: levETIRAcetam INJ 500 MG in SODIUM CHLORIDE 0.9% INJ 100 ML IV SCH ×2 (08:12→22:48)
[2017-04-19] MEDS: SODIUM CHLORIDE 0.9% FLUSH 10 ML FLUSH IV FLUSH SCH ×2 (08:12→22:49)
[2017-04-19] MEDS: DOCUSATE SODIUM 50 MG/SENNA 8.6 MG TAB PO SCH ×2 (08:13→22:47)
[2017-04-19] MEDS: VALSARTAN 80 MG TAB PO SCH (08:13)
[2017-04-19] MEDS: TOLTERODINE TARTRATE 4 MG CAP LA PO SCH (08:14)
[2017-04-19] MEDS ORDERED: DESMOPRESSIN ACETATE 4 MCG/ML VIAL IV PUSH ONE (08:15)
--- NOTE | 2017-04-19 08:54 | HHI.CCPN ---
Subjective Remarks/Hospital Course 04/12: 71-year-old male presents for evaluation after he fell hitting his head. Per family report they were in the bathroom trying to change his undergarments when he slipped and fell hitting his head. He is not on anticoagulant. The patient is pleasantly confused and patient's daughter states this is his baseline. He has had no altered mental status since the fall. No vomiting. The patient reports a mild headache without radiation. No neck pain or back pain. He has been ambulatory without difficulty since the fall. The CT head performed in the emergency department shows bilateral subdural hematomas in addition to parafalcine subdural hematoma, left frontal and temporal lobe intraparenchymal hemorrhages and subfalcine herniation from [id number]. 04/13: Resting in bed comfortably at the time of my evaluation this morning. Confused, does not know the year. Knows he is in the hospital. Moves all 4 extremity's. Does not appear to be in any acute distress. 04/14: Afebrile. The patient continues to be confused but easily following commands notable systolic ejection murmur, echo pending. Patient scheduled for neurosurgical intervention this afternoon. 04/15: Tmax 99.3. The patient status post craniotomy with evacuation of subdural hematoma last evening, remained intubated, only on sedation with propofol infusion and requiring low-dose phenylephrine to maintain map greater than 65. Sedation was briefly lightened last evening postoperatively, and the patient was extremely agitated. IV fluids changed from D5W to normal saline with [address] brain performed. INR pending. 04/16: Tmax 99.8 Patient agitated during the night , swinging his legs out of the bed while on maximum doses of propofol infusion, fentanyl infusion low-dose added this a.m. Patient's diet advance will begin tube feeds this a.m. The patient was noted to have multifocal PVCs intermittent during the night potassium level 3.2 currently being repleted with K-Phos. 04/17: Tmax 101.6. The patient underwent emergent craniotomy for evacuation of acute recurrent left subdural hematoma last evening. The patient continues on 3 % normal saline, with serial sodium and osmole is being followed. Currently weaning slowly sedation for neuro assessment. Patient noted to have a significant elevation in WBC count of 22, blood cultures urine cultures and sputum cultures obtained. Chest x-ray now showing bilateral lung opacities edema versus possible infectious process being ruled out. Echo revealed patient has severe aortic stenosis with a roommate mean gradient of 44. The patient continues on phenylephrine for vasopressors support at this time. 04/18: Last evening, the patient went into A. fib RVR, heart rate low 100s, with self resolution. This a.m. the patient continues to have sinus rhythm/sinus tachycardia 90-105 with frequent multifocal PVCs. Electrolytes within normal limits. Given the significant medical history for severe aortic stenosis metoprolol 2.5 mg IV for rapid heart rate instituted. The patient continues on phenylephrine infusion for maintenance of a map greater than 65. Propofol is currently being weaned off. EEG revealed last night severe encephalopathy. No change in neurological status but patient still is under sedation patient withdraws to pain bilateral lower extremities and now has spontaneous eye opening intermittently. Leukocytosis notably is resolving. 04/19: Afebrile. Today afternoon the patient was noted to have a seizure, Ativan 1 mg IV push with resolution EEG ordered. Post seizure the patient was noted to have gross hematuria. Coag studies performed within normal limits, fibrinogen level slightly elevated . Creatinine kinase noted to be within normal limits. Hematuria thought to possibly be secondary to acquired von Willebrand's factor secondary to the shear stress from his severe aortic stenosis. DDAVP 2 mcgs IV 1 dose ordered this a.m.. Patient continues on 3% sodium chloride, phenylephrine has been discontinued. Objective Vital Signs Date Time Temp Pulse Resp B/P (MAP) Pulse Ox O2 Delivery O2 Flow Rate FiO2 04/19/17 06:00 83 04/19/17 04:00 99.5 16 126/54 (78) 98 04/19/17 04:00 30 04/18/17 19:00 Mechanical Ventilator Intake and Output 04/19/17 04/19/17 04/20/17 08:00 16:00 00:00 Intake Total 720 ml Output Total 1513 ml Balance -793 ml Result Diagram: 04/19/17 0500 04/19/17 0500 Other Results Laboratory Tests Test 04/19/17 05:20 Blood Gas Puncture Site ART LINE Blood Gas Patient Temperature 98.6 Blood Gas HCO3 25 mmol/L (22-26) Blood Gas Base Excess 1.5 mmol/L (-2-2) Blood Gas Oxygen Saturation 96 % (90-100) Arterial Blood pH 7.46 (7.380-7.420) Arterial Blood Partial Pressure CO2 35 mmHg (38-42) Arterial Blood Partial Pressure O2 97 mmHg (61-120) Arterial Blood Oxygen Content 10.4 Vol % (12.0-20.0) Arterial Blood Carboxyhemoglobin 1.3 % (0-4) Arterial Blood Methemoglobin 0.7 % (0-2) Blood Gas Hemoglobin 7.6 G/DL (12.0-16.0) Oxygen Delivery Device VENTILATOR Blood Gas Ventilator Setting PRVC/AC Blood Gas Inspired Oxygen 30 % Imaging Last Impressions Head CT 04/18/17 1200 Signed Impressions: Service Date/Time: Tuesday, April 18, 2017 13:04 - CONCLUSION: Stable acute subdural hematomas within the frontal regions bilaterally measuring 15 mm in greatest width on the left and 9 mm in greatest width on the right and resulting in 5 mm of subfalcine herniation to the right which is slightly improved compared to the previous examination. Left posterior parietal and tentorial subdural hematomas are stable also. Adriel Cherry MD Chest X-Ray 04/18/17 0600 Signed Impressions: Service Date/Time: Tuesday, April 18, 2017 03:37 - CONCLUSION: No significant change with persistent patchy bilateral lower lung zone opacity. David Meade MD Cervical Spine CT 04/12/17 0000 Signed Impressions: Service Date/Time: Wednesday, April 12, 2017 17:36 - CONCLUSION: Degenerative spondylosis without any significant compromise to the thecal sac or the exiting nerve roots. Maria Guadalupe Alvarado MD Last Impressions Chest X-Ray 04/17/17 0109 Signed Impressions: Service Date/Time: Monday, April 17, 2017 01:16 - CONCLUSION: 1. Right IJ central venous catheter in place with the tip in the region of proximal SVC. No evidence of pneumothorax. 2. Patchy bilateral lower lung zone opacity. David Meade MD Head CT 04/16/17 0000 Signed Impressions: Service Date/Time: April 21:08 - CONCLUSION: 1. Significant mass effect is now identified with herniation as described above. The findings of this study were discussed with Dr. Corral at 9: 2. 35 PM on April 16, 2017. Dharmesh Muhammad MD Cervical Spine CT 04/12/17 0000 Signed Impressions: Service Date/Time: Wednesday, April 12, 2017 17:36 - CONCLUSION: Degenerative spondylosis without any significant compromise to the thecal sac or the exiting nerve roots. Maria Guadalupe Alvarado MD Last Impressions Chest X-Ray 04/16/17 0600 Signed Impressions: Service Date/Time: April 04:50 - CONCLUSION: Lines and tubes. Clear lungs. Da Ramirez Jr., MD Head CT 04/15/17 0600 Signed Impressions: Service Date/Time: Saturday, April 15, 2017 04:27 - CONCLUSION: 1. Interval left craniotomy with surgical drain placement. There is new diffuse subdural hematoma involving the left side beneath the craniotomy bone despite surgical drain placement. 2. Small subdural hemorrhage along the right frontal region. This is slightly larger from the prior study. 3. Reduction in size the midline shift. Da Ramirez Jr., MD Cervical Spine CT 04/12/17 0000 Signed Impressions: Service Date/Time: Wednesday, April 12, 2017 17:36 - CONCLUSION: Degenerative spondylosis without any significant compromise to the thecal sac or the exiting nerve roots. Maria Guadalupe Alvarado MD Last [address] 04/12/17 0000 Signed Impressions: Service Date/Time: Wednesday, April 12, 2017 17:36 - CONCLUSION: Bilateral subdural hematomas in addition to parafalcine subdural hematoma, left frontal and temporal lobe intraparenchymal hemorrhages and subfalcine herniation from [id number]. Maria Guadalupe Alvarado MD Cervical Spine CT 04/12/17 0000 Signed Impressions: Service Date/Time: Wednesday, April 12, 2017 17:36 - CONCLUSION: Degenerative spondylosis without any significant compromise to the thecal sac or the exiting nerve roots. Maria Guadalupe Alvarado MD Objective Remarks GENERAL: Elderly gentleman intubated and sedated currently on fentanyl infusion for ventilator synchrony and analgesia SKIN: Warm and dry. HEAD: Atraumatic. Normocephalic. 2 KWAME drains serosanguineous fluid, minimal output EYES: Pupils equal and round. No scleral icterus. No injection or drainage. ENT: No nasal bleeding or discharge. Mucous membranes pink and moist. NECK: Trachea midline. No JVD. CARDIOVASCULAR: Regular rate and rhythm. 3/6 ROHAN RESPIRATORY: No accessory muscle use. Clear to auscultation. Breath sounds equal bilaterally. GASTROINTESTINAL: Abdomen soft, non-tender, nondistended. Hepatic and splenic margins not palpable. MUSCULOSKELETAL: Extremities without clubbing, cyanosis, or edema. No obvious deformities. NEUROLOGICAL: GCS 3T. Intubated and sedated, withdraws to pain bilateral lower extremities, positive cough,/gag reflex. No movement of upper extremities, spontaneous eye opening. Procedures /2-left frontoparietal craniotomy with evacuation of subacute on chronic SDH 04/17-@ 0000 emergent craniotomy with evacuation of acute recurrent left subdural hematoma Date of Insertion: Apr 13, 2017 A/P Assessment and Plan TBI -Subdural hematoma S/P Left frontoparietal craniotomy with evacuation of subacute on chronic SDH POD 4 S/P Emergency revision evacuation of acute recurrent left subdural hematoma POD 2 -Neurosurgery following. Dr. Odom - Fentanyl 75 for agitation, attempt to wean off and utilize fentanyl only in the setting of patient with hypotension. - Neuro checks per Neurosurgery recommendations. - Daily sedation vacation-and to discontinue propofol - 04/17, 04/18 , 04/18(pm)- Repeat CT head per neurosurgery-stable acute subdural hematoma within frontal regions, bilateral 5 mm subfalcine herniation to the right with slight improvement - Seizure prophylaxis with Keppra -04/17-3% normal saline at 20 cc an hour, obtain every 6 hours serum osmole and serum sodium level -Monitor KWMAE drainage - 04/18 EEG-severe encephalopathy COPD - No exacerbation - No steroids indicated - DuoNeb scheduled and when necessary -As x-rays and ABGs when clinically indicated Dementia - Hold Aricept- 2/2 QTc prolongation H/O Hypertension Severe Hypotension Sinus tachycardia-resolved - Valsartan 80 Mg Tab 80 Mg PO DAILY ( parameters to hold for SBP < 120mmHg) -04/14 EKG prolonged QT 475, continue close monitoring - 04/16 Echo-severe aortic stenosis EF 50- 55 % Severe left ventricular concentric hypertrophy, aortic mean gradient of 44 -Patient currently on phenylephrine at 50 mics, and tin you to wean as tolerated -Begin metoprolol 12.5 mg every 12 hours. 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 Will provide 1 dose DDAVP to mcgs. Concern for hyponatremia offset by patient currently on 3% sodium chloride at 20 cc/hr recent osmole 313 sodium level 147. Continue to monitor serum osmole's and sodium level every 6 hours Psychosis - Trazodone -on hold in 2/2 QTc prolongation - Zoloft-on hold Diabetes mellitus - Hold metformin while in the ICU - Insulin sliding scale-low dose regimen Malnutrition - Continue tube feeds Glucerna 1.5 with goal 60cc/hr Bacteremia 04/19-blood [id number]-loobjraz oxide and pairs and clusters. Follow-up speciation. Empiric antibiotics continued. DVT GI prophylaxis - Teds SCDs - No pharmacological DVT prophylaxis due to subdural hematoma - Pepcid BID Further recommendations per neurosurgery. Dispo: my billing statement This patient remains critically ill with one or more organ systems which are or may become a threat to life. I have spent in excess of 35 minutes discontinuously in the care and management of this patient. This time is exclusive of procedures, and includes, but is not limited to, evaluation of the patient, review of the medical record, discussions with family, consultants, nursing staff, or respiratory therapy, and documentation in the medical record. Discussed with HOT ROLL INSPECTOR at bedside (Mario/Adina), at bedside. All questions answered. Possible acquired von Willebrand's factor deficiency contributory to persistent bleeding due to patient's severe AF. Provide DDAVP 1 dose and continued monitoring. Physician Meghan Antunez MD Apr 19, 2017 08:54
[2017-04-19] MEDS ORDERED: PILL SPLITTER OTHER PRN (09:00)
[2017-04-19] MEDS: METOPROLOL TARTRATE 25 MG TAB PO SCH ×2 (09:47→21:00)
[2017-04-19] MEDS: INSULIN ASPART SUPPLEMENTAL SCALE SQ SCH ×4 (09:47→22:47)
--- NOTE | 2017-04-19 09:57 | HHI.NSPN ---
(Rossi Tavarez) Note Status Status: Progress Note (Rossi Tavarez) Interval History Interval History 04/12: Mr. Hope is a 71-year-old male who presented to the emergency room today after he fell at home in the presence of his daughter. She states that he lost his balance while trying to put some close on, and fell and struck his head. There was no loss of consciousness. No seizure activity or nausea or emesis reported. The patient has baseline dementia and confusion, but no definite overall change in his mentation after the fall earlier today, according to his daughter, who he lives with. He presently has no complaint of headache. He does have some chronic neck and back pain. 04/13: The patient was examined in the presence of the family today and a more detailed history has been obtained. They indicate chronic progressive dementia to the point that the patient has had to move in with his daughter earlier this year. He cannot care for himself. He is usually quite confused, conversing with only a few words or short sentences and unable to stay on task with conversations. He is usually very active, fidgeting constantly. They state that his mental status today is not significantly changed from his overall baseline. He did go to the emergency room a couple of weeks ago at [facility] due to some pressure sensation or frontal headaches and was diagnosed with sinus congestion. A CT scan of the head was not obtained. He has had no definite falls over the past few weeks up until yesterday. 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 Post-operatively he returned to [facility] for further care and monitoring. 04/15: This morning the patient is obtunded and has no sedation infusing. He does withdraw to noxious stimulation. He does not open his eyes but does have facial grimacing and turns his head to noxious stimulation. ADDENDUM at 1854: Patient was sedated with propofol 50 mcg/kg/min when seen, the pump was not visible at the time. BET. 04/16: When seen the patient is obtunded but does have the propofol drip infusing. Nursing reports that he moves all extremities but does become agitated when the propofol is weaned down. He moves all extremities to noxious stimulation when seen but did not follow any commands. 04/17: The patient remains obtunded and continues to be sedated with a propofol drip. He is now on phenylephrine for blood pressure support. He does not respond to commands and only withdraws the lower extremities to noxious stimulation. He does have some facial grimacing but no eye opening to noxious stimulation. He did go emergently late last night/early this morning for a revision of the left frontoparietal craniotomy for evacuation of a recurrent left hemisphere subdural haematoma. 04/18/17: intubated, propofol just turned off, intermittent movement to ext per nursing, not opening eyes. 04/19/17: nursing reports seizures yesterday, repeat CT head stable residual SDH and 5 mm midline shift. Awaiting EEG. (Rossi Tavarez) Labs, Micro, & Vital Signs Results Date Time Temp Pulse Resp B/P (MAP) Pulse Ox O2 Delivery O2 Flow Rate FiO2 04/19/17 08:20 98 30 04/19/17 06:00 83 04/19/17 04:00 99.5 80 16 126/54 (78) 98 04/19/17 04:00 30 04/19/17 04:00 80 04/19/17 03:51 96 30 04/19/17 02:00 88 04/19/17 00:00 80 04/19/17 00:00 30 04/19/17 00:00 99.3 78 16 128/55 (79) 97 04/18/17 22:00 80 04/18/17 20:19 98 30 04/18/17 20:00 80 16 103/58 (73) 98 04/18/17 20:00 30 04/18/17 20:00 80 04/18/17 19:00 98 Mechanical Ventilator 30 04/18/17 18:00 84 04/18/17 16:25 98 30 04/18/17 16:04 30 04/18/17 16:00 86 04/18/17 16:00 97.4 84 16 112/59 (76) 98 04/18/17 14:00 98 04/18/17 13:35 96 40 04/18/17 13:04 100 60 04/18/17 12:00 102 04/18/17 12:00 98.2 102 17 131/58 (82) 99 04/18/17 12:00 30 04/18/17 10:[address] 04/18/17 1200 Signed Impressions: Service Date/Time: Tuesday, April 18, 2017 13:04 - CONCLUSION: Stable acute subdural hematomas within the frontal regions bilaterally measuring 15 mm in greatest width on the left and 9 mm in greatest width on the right and resulting in 5 mm of subfalcine herniation to the right which is slightly improved compared to the previous examination. Left posterior parietal and tentorial subdural hematomas are stable also. Adriel Cherry MD Chest X-Ray 04/18/17 0600 Signed Impressions: Service Date/Time: Tuesday, April 18, 2017 03:37 - CONCLUSION: No significant change with persistent patchy bilateral lower lung zone opacity. David Meade MD Cervical Spine CT 04/12/17 0000 Signed Impressions: Service Date/Time: Wednesday, April 12, 2017 17:36 - CONCLUSION: Degenerative spondylosis without any significant compromise to the thecal sac or the exiting nerve roots. Wm. Lukasz Alvarado MD Constitutional Vital Signs Date Time Temp Pulse Resp B/P (MAP) Pulse Ox O2 Delivery O2 Flow Rate FiO2 04/19/17 08:20 98 30 04/19/17 06:00 83 04/19/17 04:00 99.5 80 16 126/54 (78) 98 04/19/17 04:00 30 04/19/17 04:00 80 04/19/17 03:51 96 30 04/19/17 02:00 88 04/19/17 00:00 80 04/19/17 00:00 30 04/19/17 00:00 99.3 78 16 128/55 (79) 97 04/18/17 22:00 80 04/18/17 20:19 98 30 04/18/17 20:00 80 16 103/58 (73) 98 04/18/17 20:00 30 04/18/17 20:00 80 04/18/17 19:00 98 Mechanical Ventilator 30 04/18/17 18:00 84 04/18/17 16:25 98 30 04/18/17 16:04 30 04/18/17 16:00 86 04/18/17 16:00 97.4 84 16 112/59 (76) 98 04/18/17 14:00 98 04/18/17 13:35 96 40 04/18/17 13:04 100 60 04/18/17 12:00 102 04/18/17 12:00 98.2 102 17 131/58 (82) 99 04/18/17 12:00 30 04/18/17 10:00 96 (Rossi Tavarez) Review of Systems ROS Limitations: Intubated, Altered Mental Status (Rossi Tavarez) Physical Exam Mr. Hope is intubated and sedated. No current seizure like activities seen. Slightly opens eyes but does not focus or track. Cranial Nerves: Pupils 2 mm bilaterally sluggish. Eyes appear conjugated. Cervical Spine: soft, supple Motor: His muscle tone and bulk are normal. Sensory: minimal withdrawal to b/l LE to pain Plantars neutral b/l Incision clean and dry. KWAME drains x 2 with 170 cc and 80 cc output overnight. (Rossi Tavarez) Medical Decision Making MDM Remarks 71 y/o male with with left craniotomy x 2 for evacuation of subdural hematoma f/u CT Head 04/18 with improving residual left frontal SDH, stable right frontal SDH and stable 5 mm midline shift Seizures, awaiting EEG (Rossi Tavarez) Plan Plan Remarks cont critical care mgt cont KWAME draining cont AEDs, EEG pending, Ativan prn cont nonchemical dvt, and ulcer prophylaxis (Rossi Tavarez) Attending Statement The exam, history, and the medical decision-making described in the above note were completed with the assistance of the mid-level provider. I reviewed and agree with the findings presented. I attest that I had a ppen-[id number]-cxgy encounter with the patient on the same day, and personally performed and documented my assessment and findings in the medical record. (Dimitry Matamoros MD) Rossi Tavarez Apr 19, 2017 09:57 Dimitry Matamoros MD Apr 19, 2017 14:46
--- NOTE | 2017-04-19 11:23 | RADRPT ---
EXAM DATE/TIME: 04/19/2017 10:52 [facility] COMPARISON: CHEST SINGLE AP, April 18, 2017, 3:37. INDICATIONS : Right jugular central line dislodgment. MEDICAL HISTORY : Carcinoma, prostate. Cardiovascular disease Hypertension.COPD, diabetes SURGICAL HISTORY : Craniotomy. ENCOUNTER: Subsequent ACUITY: 1 day PAIN SCORE: Non-responsive. LOCATION: Bilateral chest FINDINGS: An endotracheal tube has its tip 6 cm above the wilfred. A nasogastric tube has its tip in the stomach . No pneumothorax is noted. The perihilar and bibasilar patchiness is noted. Degenerative changes and scoliosis of the thoracic spine are noted. CONCLUSION: 1. Perihilar and bibasilar patchiness. 2. No pneumothorax. 3. Degenerative changes and scoliosis of the thoracic spine. Adreil Cherry MD on April 19, 2017 at 11:16 Board Certified Radiologist. This report was verified electronically.
--- NOTE | 2017-04-19 12:56 | EKG ---
Date Performed: 04/18/2017 Time Performed: 11:45:26 PTAGE: 71 years EKG: Sinus rhythm WITH FREQUENT VENTRICULAR PREMATURE COMPLEXES ABNORMAL RHYTHM ECG PREVIOUS TRACING : 04/17/2017 17.33 Since previous tracing, the right bundle branch block is no longer present. DOCTOR: Jai Be Interpretating Date/Time 04/19/2017 12:55:25
--- NOTE | 2017-04-19 13:09 | MG ---
cc: ARIE PACE M.D. Lab No: [id number] Date: 04/30/2017 Age: Sex: M Race: TECHNIQUE: 17 channel EEG. DESCRIPTION: The background rhythm reveals generalized slowing in the delta frequency at 3-4 Hz, amplitude 20-30 microvolts. No lateralizing features are identified and no epileptiform features are identified. Photic stimulation does not elicit a driving response. INTERPRETATION: Abnormal study consistent with a severe encephalopathy. MD BETH Burger/HECTOR /12:49 PM /12:54 PM
[2017-04-19] MEDS ORDERED: SODIUM CHLORIDE 1 GRAM TAB NG SCH (14:00)
[2017-04-19] MEDS ORDERED: SODIUM CHLORID 0.9% 500 ML INJ 500 ML IV ONE (19:15)
--- NOTE | 2017-04-19 20:20 | PD.PROCEDR ---
Procedure Note Procedure Centerline placement A time-out was completed verifying correct patient, procedure, site, positioning , and special equipment if applicable. The patient was placed in a dependent position appropriate for central line placement based on the vein to be cannulated. The patients right shoulder was prepped and draped in sterile fashion. 1% Lidocaine was used to anesthetize the surrounding skin area. A triple lumen 9-Citizen Of [place] Cord[place] catheter was introduced into the the right subclavian vein using the Seldinger technique. The catheter was threaded smoothly over the guide wire and appropriate blood return was obtained. Each lumen of the catheter was evacuated of air and flushed with sterile saline. The catheter was then sutured in place to the skin and a sterile dressing applied. Perfusion to the extremity distal to the point of catheter insertion was checked and found to be adequate. Estimated Blood Loss: 1ml The patient tolerated the procedure well and there were no complications. Corby Romo MD Apr 19, 2017 8:20 pm
--- NOTE | 2017-04-19 20:21 | RADRPT ---
EXAM DATE/TIME: 04/19/2017 20:06 [facility] COMPARISON: CHEST SINGLE AP, April 19, 2017, 10:52. INDICATIONS : Central line placement and ET tube placement. MEDICAL HISTORY : Carcinoma, prostate. Cardiovascular disease. Hypertension. COPD. SURGICAL HISTORY : None. ENCOUNTER: Initial ACUITY: 1 day PAIN SCORE: Non-responsive. LOCATION: Bilateral chest FINDINGS: Endotracheal and nasogastric tubes are in good position. There is minimal placement of a right subclavian central line which is in good position. Lungs continue to demonstrate bilateral perihilar infiltrate. There is no evidence of pneumothorax. CONCLUSION: 1. Status post right subclavian central line placement without evidence of pneumothorax. 2. Satisfactory position of endotracheal and nasogastric tubes. 3. Persistent perihilar infiltrate. Robin Solomon MD on April 19, 2017 at 20:17 Board Certified Radiologist. This report was verified electronically.
[2017-04-19] MEDS: fentaNYL DRIP 250 ML IV PRN (23:23)
[2017-04-20] VITALS (21 sets, daily range): BP systolic 104–164; BP diastolic 43–76; PULSE 90–136; RESP 16–27; TEMP 98.3–101.6; O2SAT 96–100
[2017-04-20] MEDS: RESP: ALBUTEROL 2.5 MG/IPRATROPIUM 0.5 MG NEB (SCH) INH ×2 (03:39→09:12)
[2017-04-20] MEDS: CHLORHEXIDINE GLUCONATE 2 % 1 PACK (2 CLOTHS) TOP SCH (04:00)
[2017-04-20 05:11] LABS: HEMATOCRIT 23.4 % (39.0-51.0); HEMOGLOBIN 7.8 GM/DL (13.0-17.0); MEAN CELL VOLUME 89.6 FL (80.0-100.0); MEAN CORPUSCULAR HEMOGLOBIN 29.9 PG (27.0-34.0); MEAN CORPUSCULAR HGB CONC 33.4 % (32.0-36.0); MEAN PLATELET VOLUME 7.7 FL (7.0-11.0); PLATELET COUNT 212 TH/MM3 (150-450); RED BLOOD COUNT 2.61 MIL/MM3 (4.50-5.90); RED CELL DISTRIBUTION WIDTH 14.6 % (11.6-17.2); WHITE BLOOD COUNT 6.3 TH/MM3 (4.0-11.0)
[2017-04-20 05:27] LABS: BICARBONATE 27.1 MEQ/L (21.0-32.0); CALCIUM 8.5 MG/DL (8.5-10.1); CREATININE 0.74 MG/DL (0.60-1.30); MAGNESIUM 1.8 MG/DL (1.5-2.5)
[2017-04-20 05:28] LABS: PHOSPHORUS 2.3 MG/DL (2.5-4.9)
--- NOTE | 2017-04-20 08:20 | HHI.CCPN ---
Subjective Remarks/Hospital Course 04/12: 71-year-old male presents for evaluation after he fell hitting his head. Per family report they were in the bathroom trying to change his undergarments when he slipped and fell hitting his head. He is not on anticoagulant. The patient is pleasantly confused and patient's daughter states this is his baseline. He has had no altered mental status since the fall. No vomiting. The patient reports a mild headache without radiation. No neck pain or back pain. He has been ambulatory without difficulty since the fall. The CT head performed in the emergency department shows bilateral subdural hematomas in addition to parafalcine subdural hematoma, left frontal and temporal lobe intraparenchymal hemorrhages and subfalcine herniation from [id number]. 04/13: Resting in bed comfortably at the time of my evaluation this morning. Confused, does not know the year. Knows he is in the hospital. Moves all 4 extremity's. Does not appear to be in any acute distress. 04/14: Afebrile. The patient continues to be confused but easily following commands notable systolic ejection murmur, echo pending. Patient scheduled for neurosurgical intervention this afternoon. 04/15: Tmax 99.3. The patient status post craniotomy with evacuation of subdural hematoma last evening, remained intubated, only on sedation with propofol infusion and requiring low-dose phenylephrine to maintain map greater than 65. Sedation was briefly lightened last evening postoperatively, and the patient was extremely agitated. IV fluids changed from D5W to normal saline with [address] brain performed. INR pending. 04/16: Tmax 99.8 Patient agitated during the night , swinging his legs out of the bed while on maximum doses of propofol infusion, fentanyl infusion low-dose added this a.m. Patient's diet advance will begin tube feeds this a.m. The patient was noted to have multifocal PVCs intermittent during the night potassium level 3.2 currently being repleted with K-Phos. 04/17: Tmax 101.6. The patient underwent emergent craniotomy for evacuation of acute recurrent left subdural hematoma last evening. The patient continues on 3 % normal saline, with serial sodium and osmole is being followed. Currently weaning slowly sedation for neuro assessment. Patient noted to have a significant elevation in WBC count of 22, blood cultures urine cultures and sputum cultures obtained. Chest x-ray now showing bilateral lung opacities edema versus possible infectious process being ruled out. Echo revealed patient has severe aortic stenosis with a roommate mean gradient of 44. The patient continues on phenylephrine for vasopressors support at this time. 04/18: Last evening, the patient went into A. fib RVR, heart rate low 100s, with self resolution. This a.m. the patient continues to have sinus rhythm/sinus tachycardia 90-105 with frequent multifocal PVCs. Electrolytes within normal limits. Given the significant medical history for severe aortic stenosis metoprolol 2.5 mg IV for rapid heart rate instituted. The patient continues on phenylephrine infusion for maintenance of a map greater than 65. Propofol is currently being weaned off. EEG revealed last night severe encephalopathy. No change in neurological status but patient still is under sedation patient withdraws to pain bilateral lower extremities and now has spontaneous eye opening intermittently. Leukocytosis notably is resolving. 04/19: Afebrile. Today afternoon the patient was noted to have a seizure, Ativan 1 mg IV push with resolution EEG ordered. Post seizure the patient was noted to have gross hematuria. Coag studies performed within normal limits, fibrinogen level slightly elevated . Creatinine kinase noted to be within normal limits. Hematuria thought to possibly be secondary to acquired von Willebrand's factor secondary to the shear stress from his severe aortic stenosis. DDAVP 2 mcgs IV 1 dose ordered this a.m.. Patient continues on 3% sodium chloride, phenylephrine has been discontinued. 04/20: Remains sedated, orally intubated on mechanical ventilation. Remains on 3 % saline. Off phenylephrine currently. Blood pressure labile. Tolerating tube feeds Objective Vital Signs Date Time Temp Pulse Resp B/P (MAP) Pulse Ox O2 Delivery O2 Flow Rate FiO2 04/20/17 07:45 96 30 04/20/17 06:00 98 04/20/17 04:00 99.1 16 149/53 (85) 04/19/17 07:00 Mechanical Ventilator Intake and Output 04/20/17 04/20/17 04/21/17 08:00 16:00 00:00 Intake Total 593 ml Output Total 1520 ml Balance -927 ml Result Diagram: 04/20/17 0450 04/20/17 0450 Imaging Last Impressions Head CT 04/18/17 1200 Signed Impressions: Service Date/Time: Tuesday, April 18, 2017 13:04 - CONCLUSION: Stable acute subdural hematomas within the frontal regions bilaterally measuring 15 mm in greatest width on the left and 9 mm in greatest width on the right and resulting in 5 mm of subfalcine herniation to the right which is slightly improved compared to the previous examination. Left posterior parietal and tentorial subdural hematomas are stable also. Adriel Cheryr MD Chest X-Ray 04/18/17 0600 Signed Impressions: Service Date/Time: Tuesday, April 18, 2017 03:37 - CONCLUSION: No significant change with persistent patchy bilateral lower lung zone opacity. David Meade MD Cervical Spine CT 04/12/17 0000 Signed Impressions: Service Date/Time: Wednesday, April 12, 2017 17:36 - CONCLUSION: Degenerative spondylosis without any significant compromise to the thecal sac or the exiting nerve roots. Maria Guadalupe Alvarado MD Last Impressions Chest X-Ray 04/17/17 0109 Signed Impressions: Service Date/Time: Monday, April 17, 2017 01:16 - CONCLUSION: 1. Right IJ central venous catheter in place with the tip in the region of proximal SVC. No evidence of pneumothorax. 2. Patchy bilateral lower lung zone opacity. David Meade MD Head CT 04/16/17 0000 Signed Impressions: Service Date/Time: April 21:08 - CONCLUSION: 1. Significant mass effect is now identified with herniation as described above. The findings of this study were discussed with Dr. Corral at 9: 2. 35 PM on April 16, 2017. Dharmesh Muhammad MD Cervical Spine CT 04/12/17 0000 Signed Impressions: Service Date/Time: Wednesday, April 12, 2017 17:36 - CONCLUSION: Degenerative spondylosis without any significant compromise to the thecal sac or the exiting nerve roots. Maria Guadalupe Alvarado MD Last Impressions Chest X-Ray 04/16/17 0600 Signed Impressions: Service Date/Time: April 04:50 - CONCLUSION: Lines and tubes. Clear lungs. Da Ramirez Jr., MD Head CT 04/15/17 0600 Signed Impressions: Service Date/Time: Saturday, April 15, 2017 04:27 - CONCLUSION: 1. Interval left craniotomy with surgical drain placement. There is new diffuse subdural hematoma involving the left side beneath the craniotomy bone despite surgical drain placement. 2. Small subdural hemorrhage along the right frontal region. This is slightly larger from the prior study. 3. Reduction in size the midline shift. Da Ramirez Jr., MD Cervical Spine CT 04/12/17 0000 Signed Impressions: Service Date/Time: Wednesday, April 12, 2017 17:36 - CONCLUSION: Degenerative spondylosis without any significant compromise to the thecal sac or the exiting nerve roots. Maria Guadalupe Alvarado MD Last [address] 04/12/17 0000 Signed Impressions: Service Date/Time: Wednesday, April 12, 2017 17:36 - CONCLUSION: Bilateral subdural hematomas in addition to parafalcine subdural hematoma, left frontal and temporal lobe intraparenchymal hemorrhages and subfalcine herniation from [id number]. Maria Guadalupe Alvarado MD Cervical Spine CT 04/12/17 0000 Signed Impressions: Service Date/Time: Wednesday, April 12, 2017 17:36 - CONCLUSION: Degenerative spondylosis without any significant compromise to the thecal sac or the exiting nerve roots. Maria Guadalupe Alvarado MD Objective Remarks GENERAL: Elderly gentleman intubated and sedated currently on fentanyl infusion for ventilator synchrony and analgesia SKIN: Warm and dry. HEAD: Atraumatic. Normocephalic. 2 KWAME drains serosanguineous fluid, minimal output EYES: Pupils equal and round. No scleral icterus. No injection or drainage. ENT: No nasal bleeding or discharge. Mucous membranes pink and moist. NECK: Trachea midline. No JVD. CARDIOVASCULAR: Regular rate and rhythm. 3/6 ROHAN RESPIRATORY: No accessory muscle use. Clear to auscultation. Breath sounds equal bilaterally. GASTROINTESTINAL: Abdomen soft, non-tender, nondistended. Hepatic and splenic margins not palpable. MUSCULOSKELETAL: Extremities without clubbing, cyanosis, or edema. No obvious deformities. NEUROLOGICAL: GCS 3T. Intubated and sedated, withdraws to pain bilateral lower extremities, positive cough,/gag reflex. No movement of upper extremities, spontaneous eye opening. Procedures 1/2-left frontoparietal craniotomy with evacuation of subacute on chronic SDH 04/17-@ 0000 emergent craniotomy with evacuation of acute recurrent left subdural hematoma Date of Insertion: Apr 13, 2017 A/P Assessment and Plan TBI -Subdural hematoma S/P Left frontoparietal craniotomy with evacuation of subacute on chronic SDH POD 4 S/P Emergency revision evacuation of acute recurrent left subdural hematoma POD 2 -Neurosurgery following. Dr. Odom - Fentanyl 75 for agitation, attempt to wean off and utilize fentanyl only in the setting of patient with hypotension. - Neuro checks per Neurosurgery recommendations. - Daily sedation vacation-and to discontinue propofol - 04/17, 04/18 , 04/18(pm)- Repeat CT head per neurosurgery-stable acute subdural hematoma within frontal regions, bilateral 5 mm subfalcine herniation to the right with slight improvement - Seizure prophylaxis with Keppra -04/17-3% normal saline at 20 cc an hour, obtain every 6 hours serum osmole and serum sodium level -Monitor KWAME drainage - 04/18 EEG-severe encephalopathy COPD - No exacerbation - No steroids indicated - DuoNeb scheduled and when necessary -As x-rays and ABGs when clinically indicated Dementia - Hold Aricept- 2/2 QTc prolongation H/O Hypertension Severe Hypotension Sinus tachycardia-resolved - Valsartan 80 Mg Tab 80 Mg PO DAILY ( parameters to hold for SBP < 120mmHg) -04/14 EKG prolonged QT 475, continue close monitoring - 04/16 Echo-severe aortic stenosis EF 50- 55 % Severe left ventricular concentric hypertrophy, aortic mean gradient of 44 -Patient currently on phenylephrine at 50 mics, and tin you to wean as tolerated -Begin metoprolol 12.5 mg every 12 hours. Phenylephrine discontinued 03 AM on -Repeat athletic monitor QTc- will hold Aricept and Zoloft which may be contributory Possible acquired von Willebrand factor deficiency 2/2 severe aortic stenosis Hematuria -Concern for possible acquired von Willebrand's factor deficiency secondary to shear stress from severe aortic stenosis. Will provide 1 dose DDAVP to mcgs. Concern for hyponatremia offset by patient currently on 3% sodium chloride at 20 cc/hr recent osmole 313 sodium level 147. Continue to monitor serum osmole's and sodium level every 6 hours Psychosis - Trazodone -on hold in 2/2 QTc prolongation - Zoloft-on hold Diabetes mellitus - Hold metformin while in the ICU - Insulin sliding scale-low dose regimen Malnutrition - Continue tube feeds Glucerna 1.5 with goal 60cc/hr Bacteremia 04/19-blood [id number] oxide and pairs and clusters. Follow-up speciation. Empiric antibiotics continued. DVT GI prophylaxis - Teds SCDs - No pharmacological DVT prophylaxis due to subdural hematoma - Pepcid BID Further recommendations per neurosurgery. Dispo: my billing statement This patient remains critically ill with one or more organ systems which are or may become a threat to life. I have spent in excess of 35 minutes discontinuously in the care and management of this patient. This time is exclusive of procedures, and includes, but is not limited to, evaluation of the patient, review of the medical record, discussions with family, consultants, nursing staff, or respiratory therapy, and documentation in the medical record. Discussed with RACETRACK STEWARD at bedside. Possible acquired von Willebrand's factor deficiency contributory to persistent bleeding due to patient's severe AF. DDAVP 1 dose and continued monitoring. Sp Roman MD Apr 20, 2017 08:20
[2017-04-20] MEDS: FAMOTIDINE 20 MG/2 ML VIAL IV PUSH SCH ×2 (09:00→20:42)
[2017-04-20] MEDS: METOPROLOL TARTRATE 25 MG TAB PO SCH ×2 (09:00→21:00)
[2017-04-20] MEDS: GABAPENTIN 400 MG CAP PO SCH ×3 (09:16→18:52)
[2017-04-20] MEDS: VALSARTAN 80 MG TAB PO SCH (09:16)
[2017-04-20] MEDS: PRAVASTATIN SOD 40 MG TAB PO SCH (09:16)
[2017-04-20] MEDS: DOCUSATE SODIUM 50 MG/SENNA 8.6 MG TAB PO SCH ×2 (09:16→20:41)
[2017-04-20] MEDS: SODIUM CHLORIDE 0.9% FLUSH 10 ML FLUSH IV FLUSH SCH ×2 (09:17→20:42)
[2017-04-20] MEDS: levETIRAcetam INJ 500 MG in SODIUM CHLORIDE 0.9% INJ 100 ML IV SCH ×2 (09:17→20:41)
--- NOTE | 2017-04-20 09:18 | HHI.NSPN ---
(Lacho Lacey Betsey JOSEPH) History Chief Complaint: Unable to obtain due to patient's clinical condition. (Lacho Lacey PRECISION LATHE OPERATOR) Interval History 04/12: Mr. Hope is a 71-year-old male who presented to the emergency room today after he fell at home in the presence of his daughter. She states that he lost his balance while trying to put some close on, and fell and struck his head. There was no loss of consciousness. No seizure activity or nausea or emesis reported. The patient has baseline dementia and confusion, but no definite overall change in his mentation after the fall earlier today, according to his daughter, who he lives with. He presently has no complaint of headache. He does have some chronic neck and back pain. 04/13: The patient was examined in the presence of the family today and a more detailed history has been obtained. They indicate chronic progressive dementia to the point that the patient has had to move in with his daughter earlier this year. He cannot care for himself. He is usually quite confused, conversing with only a few words or short sentences and unable to stay on task with conversations. He is usually very active, fidgeting constantly. They state that his mental status today is not significantly changed from his overall baseline. He did go to the emergency room a couple of weeks ago at [facility] due to some pressure sensation or frontal headaches and was diagnosed with sinus congestion. A CT scan of the head was not obtained. He has had no definite falls over the past few weeks up until yesterday. 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 Post-operatively he returned to [facility] for further care and monitoring. 04/15: This morning the patient is obtunded and has no sedation infusing. He does withdraw to noxious stimulation. He does not open his eyes but does have facial grimacing and turns his head to noxious stimulation. ADDENDUM at 1854: Patient was sedated with propofol 50 mcg/kg/min when seen, the pump was not visible at the time. BET. 04/16: When seen the patient is obtunded but does have the propofol drip infusing. Nursing reports that he moves all extremities but does become agitated when the propofol is weaned down. He moves all extremities to noxious stimulation when seen but did not follow any commands. 04/17: The patient remains obtunded and continues to be sedated with a propofol drip. He is now on phenylephrine for blood pressure support. He does not respond to commands and only withdraws the lower extremities to noxious stimulation. He does have some facial grimacing but no eye opening to noxious stimulation. He did go emergently late last night/early this morning for a revision of the left frontoparietal craniotomy for evacuation of a recurrent left hemisphere subdural haematoma. 04/18/17: intubated, propofol just turned off, intermittent movement to ext per nursing, not opening eyes. 04/19/17: nursing reports seizures yesterday, repeat CT head stable residual SDH and 5 mm midline shift. Awaiting EEG. 04/20: Patient with right eye partially opened when seen but Nursing just stimulated patient. He remains intubated and mechanically ventilated. He withdraws to noxious stimuli to the lower extremities but not the upper. He does have facial grimacing to noxious stimulation. Nursing reports that overnight KWAME #1 had 170 mL of yellowish drainage. She also says the patient has been off sedation approximately 36 hours. (Lacho Lacey) System Review Comments Unable to obtain due to patient's clinical condition. (Lacho Lacey) Exam Results 04/18/17 04/18/17 04/19/17 04/19/17 04/20/17 04/20/17 06:00 18:00 06:00 18:00 06: 18:00 Intake Total 1888 ml 1785 ml 785 ml 683 ml Output Total 2700.0 ml 0 ml 3103.0 ml 1980 ml 1590 ml Balance -812.0 ml 0 ml -1318.0 ml -1195 ml -907 ml IV Total 1407 ml 670 ml 785 ml Tube Feeding 481 ml 1115 ml 593 ml Other 90 ml Output Urine Total 2425 ml 2850 ml 1780 ml 1400 ml Tube Feeding Residual Discard 0 ml 0 ml 0 ml Drainage Total 275 ml 253 ml 200 ml 190 ml # Bowel Movements 2 2 2 Vital Signs Date Time Temp Pulse Resp B/P (MAP) Pulse Ox O2 Delivery O2 Flow Rate FiO2 04/20/17 07:45 96 30 04/20/17 06:00 98 04/20/17 04:00 99 04/20/17 04:00 30 04/20/17 04:00 99.1 99 16 149/53 (85) 98 04/20/17 03:39 98 30 04/20/17 02:00 90 04/20/17 00:35 99 30 04/20/17 00:00 98.3 95 16 127/54 (78) 97 04/20/17 00:00 30 04/20/17 00:00 95 04/19/17 22:00 98 04/19/17 20:21 98 30 04/19/17 20:00 99.5 101 17 127/53 (77) 98 04/19/17 20:00 104 04/19/17 19:30 30 04/19/17 18:00 106 04/19/17 16:00 30 04/19/17 16:00 117 04/19/17 16:00 97.7 93 17 137/55 (82) 100 04/19/17 15:09 100 30 04/19/17 14:00 93 04/19/17 13:22 97 30 04/19/17 12:00 108 04/19/17 12:00 30 04/19/17 12:00 97.8 93 18 107/46 (66) 98 04/19/17 10:00 98 04/19/17 08:20 98 30 04/19/17 08:00 98.3 80 16 122/53 (76) 98 04/19/17 08:00 30 04/19/17 08:00 88 04/19/17 07:00 98 Mechanical Ventilator 30 04/19/17 06:00 83 04/19/17 04:00 99.5 80 16 126/54 (78) 98 04/19/17 04:00 30 04/19/17 04:00 80 04/19/17 03:51 96 30 04/19/17 02:00 88 04/19/17 00:00 80 04/19/17 00:00 30 04/19/17 00:00 99.3 78 16 128/55 (79) 97 04/18/17 22:00 80 04/18/17 20:19 98 30 04/18/17 20:00 80 16 103/58 (73) 98 04/18/17 20:00 30 04/18/17 20:00 80 04/18/17 19:00 98 Mechanical Ventilator 30 04/18/17 18:00 84 04/18/17 16:25 98 30 04/18/17 16:04 30 04/18/17 16:00 86 04/18/17 16:00 97.4 84 16 112/59 (76) 98 04/18/17 14:00 98 04/18/17 13:35 96 40 04/18/17 13:04 100 60 04/18/17 12:00 102 04/18/17 12:00 98.2 102 17 131/58 (82) 99 04/18/17 12:00 30 04/18/17 10:00 96 04/18/17 08:31 97 30 04/18/17 08:00 97.6 94 16 96 04/18/17 08:00 100 04/18/17 08:00 30 04/18/17 07:00 95 Mechanical Ventilator 30 04/18/17 06:00 115 04/18/17 04:30 93 30 04/18/17 04:00 99.7 110 22 94 166/54 (91) 04/18/17 04:00 110 04/18/17 04:00 30 04/18/17 03:00 94 124/50 04/18/17 02:00 88 04/18/17 01:29 97 30 04/18/17 00:00 92 04/18/17 00:00 99.8 92 16 96 169/41 (83) 04/18/17 00:00 30 04/17/17 23:41 97 30 04/17/17 22:00 90 04/17/17 20:00 91 04/17/17 20:00 30 04/17/17 20:00 99.7 91 17 95 116/45 (68) 04/17/17 19:51 96 30 04/17/17 19:00 95 Mechanical Ventilator 30 04/17/17 18:38 100 100 04/17/17 18:00 112 04/17/17 16:07 100 30 04/17/17 16:00 30 04/17/17 16:00 86 04/17/17 16:00 98.8 86 19 131/60 (83) 04/17/17 14:00 88 04/17/17 12:00 50 04/17/17 12:00 75 04/17/17 12:00 98.6 78 17 99 120/57 (78) 04/17/17 11:28 99 30 04/17/17 10:00 67 (Lacho Lacey) Physical Examination GENERAL: Lethargic, no sedation. Fentanyl infusing at 50 mcg/hr for pain control. HEENT: Left craniotomy surgical incision well approximated with gilles, KWAME drain to bulb suction x2 w/serous-appearing drainage noted. PERRLA 3mm reactive. Orally intubated. OGT. MUSCULOSKELETAL: No clubbing or deformity evident. NEUROLOGICAL: Lethargic, no sedation. Nonverbal, intubated. Right eye slightly open when seen but patient had been stimulated by Nursing, readily closes. Facial grimacing to noxious stimulation. Withdrawal of BLE to local & central noxious stimulation, but none to BUE. (Lacho Lacey) Lab, Micro, Other Results Recent Impressions Chest X-Ray 04/19/17 0000 Signed Impressions: Service Date/Time: Wednesday, April 19, 2017 20:06 - CONCLUSION: 1. Status post right subclavian central line placement without evidence of pneumothorax. 2. Satisfactory position of endotracheal and nasogastric tubes. 3. Persistent perihilar infiltrate. Robin Solomon MD Chest X-Ray 04/19/17 0000 Signed Impressions: Service Date/Time: Wednesday, April 19, 2017 10:52 - CONCLUSION: 1. Perihilar and bibasilar patchiness. 2. No pneumothorax. 3. Degenerative changes and scoliosis of the thoracic spine. Adriel Cherry MD Head CT 04/18/17 1200 Signed Impressions: Service Date/Time: Tuesday, April 18, 2017 13:04 - CONCLUSION: Stable acute subdural hematomas within the frontal regions bilaterally measuring 15 mm in greatest width on the left and 9 mm in greatest width on the right and resulting in 5 mm of subfalcine herniation to the right which is slightly improved compared to the previous examination. Left posterior parietal and tentorial subdural hematomas are stable also. Adriel Cherry MD Chest X-Ray 04/18/17 0600 Signed Impressions: Service Date/Time: Tuesday, April 18, 2017 03:37 - CONCLUSION: No significant change with persistent patchy bilateral lower lung zone opacity. David Meade MD Laboratory Tests Test 04/17/17 10:45 04/17/17 12:19 04/17/17 17:20 04/17/17 18:00 Blood Gas Puncture Site ART LINE Blood Gas Patient Temperature 98.6 Blood Gas HCO3 17 mmol/L Blood Gas Base Excess -7.2 mmol/L Blood Gas Oxygen Saturation 97 % Arterial Blood pH 7.38 Arterial Blood Partial Pressure CO2 29 mmHg Arterial Blood Partial Pressure O2 104 mmHg Arterial Blood Oxygen Content 11.8 Vol % Arterial Blood Carboxyhemoglobin 1.2 % Arterial Blood Methemoglobin 1.2 % Blood Gas Hemoglobin 8.5 G/DL Oxygen Delivery Device VENTILATOR Blood Gas Ventilator Setting PRVC16/550/1.0/+5 Blood Gas Inspired Oxygen 30 % Sodium Level 141 MEQ/L 140 MEQ/L Serum Osmolality 289 MOSM/KG 295 MOSM/KG Lactic Acid Level 0.8 mmol/L 0.8 mmol/L Potassium Level 3.9 MEQ/L Magnesium Level 1.9 MG/DL Test 04/18/17 00:40 04/18/17 04:50 04/18/17 14:15 04/18/17 18:10 Sodium Level 143 MEQ/L 141 MEQ/L 146 MEQ/L 145 MEQ/L Serum Osmolality 295 MOSM/KG 299 MOSM/KG 308 MOSM/KG 310 MOSM/KG White Blood Count 12.5 TH/MM3 Red Blood Count 3.02 MIL/MM3 Hemoglobin 9.1 GM/DL Hematocrit 26.8 % Mean Corpuscular Volume 88.5 FL Mean Corpuscular Hemoglobin 30.1 PG Mean Corpuscular Hemoglobin Concent 34.0 % Red Cell Distribution Width 14.8 % Platelet Count 181 TH/MM3 Mean Platelet Volume 7.9 FL Neutrophils (%) (Auto) 90.0 % Lymphocytes (%) (Auto) 2.6 % Monocytes (%) (Auto) 6.9 % Eosinophils (%) (Auto) 0.3 % Basophils (%) (Auto) 0.2 % Neutrophils # (Auto) 11.2 TH/MM3 Lymphocytes # (Auto) 0.3 TH/MM3 Monocytes # (Auto) 0.9 TH/MM3 Eosinophils # (Auto) 0.0 TH/MM3 Basophils # (Auto) 0.0 TH/MM3 CBC Comment DIFF FINAL Differential Comment Blood Urea Nitrogen 12 MG/DL Creatinine 0.67 MG/DL Random Glucose 213 MG/DL Calcium Level 7.8 MG/DL Phosphorus Level 1.9 MG/DL Magnesium Level 1.9 MG/DL Potassium Level 3.7 MEQ/L Chloride Level 111 MEQ/L Carbon Dioxide Level 19.6 MEQ/L Anion Gap 10 MEQ/L Estimat Glomerular Filtration Rate 117 ML/MIN Prothrombin Time 11.1 SEC Prothromb Time International Ratio 1.1 RATIO Fibrinogen 735 mg/dL Test 04/18/17 19:30 04/18/17 21:00 04/19/17 01:15 04/19/17 05:00 Urine Color RED Urine Turbidity CLOUDY Urine pH 6.0 Urine Specific [place] 1.015 Urine Protein 100 mg/dL Urine Glucose (UA) 1000 mg/dL Urine Ketones TRACE mg/dL Urine Occult Blood LARGE Urine Nitrite NEG Urine Bilirubin NEG Urine Urobilinogen 2.0 MG/DL Urine Leukocyte Esterase NEG Urine RBC /hpf Urine WBC /hpf Urine WBC Clumps FEW Urine Bacteria FEW /hpf Urine Mucus FEW /lpf White Blood Count 11.2 TH/MM3 7.3 TH/MM3 Red Blood Count 2.62 MIL/MM3 2.52 MIL/MM3 Hemoglobin 8.0 GM/DL 7.7 GM/DL Hematocrit 23.2 % 22.5 % Mean Corpuscular Volume 88.5 FL 89.2 FL Mean Corpuscular Hemoglobin 30.6 PG 30.5 PG Mean Corpuscular Hemoglobin Concent 34.5 % 34.2 % Red Cell Distribution Width 15.3 % 15.1 % Platelet Count 197 TH/MM3 181 TH/MM3 Mean Platelet Volume 7.7 FL 7.8 FL Sodium Level 149 MEQ/L 147 MEQ/L Serum Osmolality 313 MOSM/KG 313 MOSM/KG Total Creatine Kinase 101 U/L Blood Urea Nitrogen 20 MG/DL Creatinine 0.69 MG/DL Random Glucose 276 MG/DL Calcium Level 8.0 MG/DL Phosphorus Level 1.9 MG/DL Magnesium Level 1.8 MG/DL Potassium Level 3.9 MEQ/L Chloride Level 114 MEQ/L Carbon Dioxide Level 26.3 MEQ/L Anion Gap 7 MEQ/L Estimat Glomerular Filtration Rate 113 ML/MIN Test 04/19/17 05:20 04/19/17 12:50 04/19/17 18:25 04/19/17 23:50 Blood Gas Puncture Site ART LINE Blood Gas Patient Temperature 98.6 Blood Gas HCO3 25 mmol/L Blood Gas Base Excess 1.5 mmol/L Blood Gas Oxygen Saturation 96 % Arterial Blood pH 7.46 Arterial Blood Partial Pressure CO2 35 mmHg Arterial Blood Partial Pressure O2 97 mmHg Arterial Blood Oxygen Content 10.4 Vol % Arterial Blood Carboxyhemoglobin 1.3 % Arterial Blood Methemoglobin 0.7 % Blood Gas Hemoglobin 7.6 G/DL Oxygen Delivery Device VENTILATOR Blood Gas Ventilator Setting PRVC/AC Blood Gas Inspired Oxygen 30 % Sodium Level 150 MEQ/L 148 MEQ/L 151 MEQ/L Serum Osmolality 319 MOSM/KG 319 MOSM/KG 322 MOSM/KG Phosphorus Level 2.7 MG/DL Test 04/20/17 04:50 White Blood Count 6.3 TH/MM3 Red Blood Count 2.61 MIL/MM3 Hemoglobin 7.8 GM/DL Hematocrit 23.4 % Mean Corpuscular Volume 89.6 FL Mean Corpuscular Hemoglobin 29.9 PG Mean Corpuscular Hemoglobin Concent 33.4 % Red Cell Distribution Width 14.6 % Platelet Count 212 TH/MM3 Mean Platelet Volume 7.7 FL Blood Urea Nitrogen 21 MG/DL Creatinine 0.74 MG/DL Random Glucose 284 MG/DL Calcium Level 8.5 MG/DL Phosphorus Level 2.3 MG/DL Magnesium Level 1.8 MG/DL Sodium Level 149 MEQ/L Potassium Level 3.8 MEQ/L Chloride Level 114 MEQ/L Carbon Dioxide Level 27.1 MEQ/L Anion Gap 8 MEQ/L Estimat Glomerular Filtration Rate 104 ML/MIN Serum Osmolality 325 MOSM/KG (Lacho Lacey) Medical Decision Making Impression and Plan Impression: 1. 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 Dementia 4. Cardiac murmur Patient is lethargic, facial grimacing & withdraws lower extremities to noxious stimulation. Reviewed labs for today. Essentially stable haemoglobin. Sodium 149. Hypophosphatemia. CT brain demonstrated stable subdural haematomas w/5 mm right subfalcine herniation, slightly improved. EEG consistent w/severe encephalopathy. KWAME drain output for the past 24 hrs is 330 mL for #1 and 60 mL for #2 as of this morning. POD #6 () s/p: Left frontoparietal craniotomy for evacuation of subacute on chronic subdural hematoma Postoperative Diagnosis: (1) Subdural hematoma, chronic (2) Acute subdural hematoma 1. Left hemisphere subacute on chronic subdural hematoma 2. Acute right frontal subdural hematoma POD #3 () s/p: Revision left frontoparietal craniotomy evacuation of recurrent left hemisphere subdural hematoma Postoperative Diagnosis: (1) Acute subdural hematoma Recurrent left hemisphere subdural hematoma Plan: Discussed plan of care with Nursing. Primary management per Pipe Liner. Neuro checks. Repeat CT brain for any decline in neuro status. Monitor KWAME drain output. Mechanical DVT prophylaxis. Hold pharmacologic DVT prophylaxis. Stress ulcer prophylaxis. (Lacho Lacey) Attending Statement The exam, history, and the medical decision-making described in the above note were completed with the assistance of the mid-level provider. I reviewed and agree with the findings presented. I attest that I had a [id number] encounter with the patient on the same day, and personally performed and documented my assessment and findings in the medical record. Patient remains intubated and sedated. Positive fever today. On examination pupils remain to 3 mm, nonreactive. No eye opening to voice 04/20/2017 CT scan had images reveal moderate resolution of the residual left frontal subdural hematoma. Relatively mild mass effect. Some loss of bowling-white interface bilaterally. Mild to moderate right hemisphere subdural effusion developing. Continue drains. Plan follow-up CT scan of the head later in the week to make decision regarding further surgery versus conservative treatment and observation. (Sylvester Odom MD) Lacho Lacey Apr 20, 2017 09:18 Sylvester Odom MD Apr 21, 2017 22:34
[2017-04-20] MEDS: INSULIN ASPART SUPPLEMENTAL SCALE SQ SCH ×4 (10:40→21:00)
[2017-04-20] MEDS: METOPROLOL TARTRATE 5 MG/5 ML VIAL IV PUSH PRN (13:11)
--- NOTE | 2017-04-20 18:20 | RADRPT ---
EXAM DATE/TIME: 04/20/2017 17:38 [place] COMPARISON: CT BRAIN W/O CONTRAST, April 18, 2017, 13:04. INDICATIONS : Altered mental status. RADIATION DOSE: 67.08 CTDIvol (mGy) MEDICAL HISTORY : Chronic obstructive pulmonary disease. Hypertension. Carcinoma, prostate.diabetes SURGICAL HISTORY : Craniotomy. ENCOUNTER: Initial ACUITY: 1 day PAIN SCALE: Non-responsive LOCATION: Bilateral head TECHNIQUE: Multiple contiguous axial images were obtained of the head. Using automated exposure control and adj ustment of the mA and/or kV according to patient size, radiation dose was kept as low as reasonably a chievable to obtain optimal diagnostic quality images. DICOM format image data is available electro nically for review and comparison. FINDINGS: There are evolving acute subdural hematomas within the lateral frontal regions measuring up to 15 mm on the left and up to 9 mm on the right. The posterior parietal mid to high convexity subdural collec tions appear slightly more prominent in comparison to previous exam measuring up to 9 mm on the left and 8 mm on the right. Stable left subdural surgical drains with stable small amount of pneumocephalu s primarily in the left frontal collection. There is improved left to right subfalcine shift measurin g up to 3 mm. Stable mass effect upon the left lateral ventricle. The ventricles are otherwise stable in size. Otherwise, no intercurrent hemorrhage or or significant interval change. CONCLUSION: 1. Stable left subdural drains with evolving acute bifrontal subdural hematomas and improving subfalc ine herniation. 2. Slightly more prominent bilateral posterior parietal subdural hematomas which may be due to differ ent positioning in the gantry. Thierry Barros MD on April 20, 2017 at 17:56 Board Certified Radiologist. This report was verified electronically.
[2017-04-20] MEDS: 3% SALINE INJ 500 ML IV SCH (20:30)
[2017-04-20] MEDS: ACETAMINOPHEN 325 MG TAB PO PRN (20:40)
[2017-04-20] MEDS: SODIUM CHLOR 0.9% 1000 ML INJ 1,000 ML IV SCH ×2 (21:30→22:30)
[2017-04-20] MEDS ORDERED: NOREPINEPHRINE-DEXTROSE DRIP 250 ML IV ONE (21:30)
[2017-04-21] VITALS (14 sets, daily range): BP systolic 116–172; BP diastolic 46–72; PULSE 72–133; RESP 16–23; TEMP 98.3–101.9; O2SAT 92–97
[2017-04-21] MEDS: CHLORHEXIDINE GLUCONATE 2 % 1 PACK (2 CLOTHS) TOP SCH (04:00)
[2017-04-21] MEDS: INSULIN ASPART SUPPLEMENTAL SCALE SQ SCH ×3 (08:00→17:31)
[2017-04-21] MEDS: SODIUM CHLORIDE 0.9% FLUSH 10 ML FLUSH IV FLUSH SCH ×2 (09:00→22:05)
[2017-04-21] MEDS: GABAPENTIN 400 MG CAP PO SCH ×3 (09:53→17:34)
[2017-04-21] MEDS: VALSARTAN 80 MG TAB PO SCH (09:53)
[2017-04-21] MEDS: PRAVASTATIN SOD 40 MG TAB PO SCH (09:53)
[2017-04-21] MEDS: FAMOTIDINE 20 MG/2 ML VIAL IV PUSH SCH ×2 (09:53→22:05)
[2017-04-21] MEDS: METOPROLOL TARTRATE 25 MG TAB PO SCH ×2 (09:53→22:05)
[2017-04-21] MEDS: DOCUSATE SODIUM 50 MG/SENNA 8.6 MG TAB PO SCH ×2 (09:53→21:00)
[2017-04-21] MEDS: levETIRAcetam INJ 500 MG in SODIUM CHLORIDE 0.9% INJ 100 ML IV SCH ×2 (09:53→22:13)
[2017-04-21] MEDS: ACETAMINOPHEN 325 MG TAB PO PRN (09:59)
[2017-04-21 13:08] LABS: BICARBONATE 27.4 MEQ/L (21.0-32.0); CALCIUM 8.8 MG/DL (8.5-10.1); CREATININE 0.95 MG/DL (0.60-1.30)
[2017-04-21] MEDS ORDERED: DEXMEDETOMIDINE HCL 200 MCG/2 ML VIAL IV PUSH ONE (14:00)
--- NOTE | 2017-04-21 14:13 | HHI.CCPN ---
Subjective Remarks/Hospital Course 04/12: 71-year-old male presents for evaluation after he fell hitting his head. Per family report they were in the bathroom trying to change his undergarments when he slipped and fell hitting his head. He is not on anticoagulant. The patient is pleasantly confused and patient's daughter states this is his baseline. He has had no altered mental status since the fall. No vomiting. The patient reports a mild headache without radiation. No neck pain or back pain. He has been ambulatory without difficulty since the fall. The CT head performed in the emergency department shows bilateral subdural hematomas in addition to parafalcine subdural hematoma, left frontal and temporal lobe intraparenchymal hemorrhages and subfalcine herniation from [id number]. 04/13: Resting in bed comfortably at the time of my evaluation this morning. Confused, does not know the year. Knows he is in the hospital. Moves all 4 extremity's. Does not appear to be in any acute distress. 04/14: Afebrile. The patient continues to be confused but easily following commands notable systolic ejection murmur, echo pending. Patient scheduled for neurosurgical intervention this afternoon. 04/15: Tmax 99.3. The patient status post craniotomy with evacuation of subdural hematoma last evening, remained intubated, only on sedation with propofol infusion and requiring low-dose phenylephrine to maintain map greater than 65. Sedation was briefly lightened last evening postoperatively, and the patient was extremely agitated. IV fluids changed from D5W to normal saline with [address] brain performed. INR pending. 04/16: Tmax 99.8 Patient agitated during the night , swinging his legs out of the bed while on maximum doses of propofol infusion, fentanyl infusion low-dose added this a.m. Patient's diet advance will begin tube feeds this a.m. The patient was noted to have multifocal PVCs intermittent during the night potassium level 3.2 currently being repleted with K-Phos. 04/17: Tmax 101.6. The patient underwent emergent craniotomy for evacuation of acute recurrent left subdural hematoma last evening. The patient continues on 3 % normal saline, with serial sodium and osmole is being followed. Currently weaning slowly sedation for neuro assessment. Patient noted to have a significant elevation in WBC count of 22, blood cultures urine cultures and sputum cultures obtained. Chest x-ray now showing bilateral lung opacities edema versus possible infectious process being ruled out. Echo revealed patient has severe aortic stenosis with a roommate mean gradient of 44. The patient continues on phenylephrine for vasopressors support at this time. 04/18: Last evening, the patient went into A. fib RVR, heart rate low 100s, with self resolution. This a.m. the patient continues to have sinus rhythm/sinus tachycardia 90-105 with frequent multifocal PVCs. Electrolytes within normal limits. Given the significant medical history for severe aortic stenosis metoprolol 2.5 mg IV for rapid heart rate instituted. The patient continues on phenylephrine infusion for maintenance of a map greater than 65. Propofol is currently being weaned off. EEG revealed last night severe encephalopathy. No change in neurological status but patient still is under sedation patient withdraws to pain bilateral lower extremities and now has spontaneous eye opening intermittently. Leukocytosis notably is resolving. 04/19: Afebrile. Today afternoon the patient was noted to have a seizure, Ativan 1 mg IV push with resolution EEG ordered. Post seizure the patient was noted to have gross hematuria. Coag studies performed within normal limits, fibrinogen level slightly elevated . Creatinine kinase noted to be within normal limits. Hematuria thought to possibly be secondary to acquired von Willebrand's factor secondary to the shear stress from his severe aortic stenosis. DDAVP 2 mcgs IV 1 dose ordered this a.m.. Patient continues on 3% sodium chloride, phenylephrine has been discontinued. 04/20: Remains sedated, orally intubated on mechanical ventilation. Remains on 3 % saline. Off phenylephrine currently. Blood pressure labile. Tolerating tube feeds. 04/21: Remains sedated, orally intubated on mechanical ventilation. Stopping 3% saline. Tolerating tube feeds Objective Vital Signs Date Time Temp Pulse Resp B/P (MAP) Pulse Ox O2 Delivery O2 Flow Rate FiO2 04/21/17 11:14 94 30 04/21/17 06:00 118 04/21/17 04:00 99.6 18 155/62 (93) 04/20/17 23:27 Ventilator Intake and Output 04/21/17 04/21/17 04/21/17 07:59 15:59 23:59 Intake Total 605 ml Output Total 1205 ml Balance -600 ml Result Diagram: 04/20/17 0450 04/21/17 1235 Imaging Last Impressions Head CT 04/18/17 1200 Signed Impressions: Service Date/Time: Tuesday, April 18, 2017 13:04 - CONCLUSION: Stable acute subdural hematomas within the frontal regions bilaterally measuring 15 mm in greatest width on the left and 9 mm in greatest width on the right and resulting in 5 mm of subfalcine herniation to the right which is slightly improved compared to the previous examination. Left posterior parietal and tentorial subdural hematomas are stable also. Adriel Cherry MD Chest X-Ray 04/18/17 0600 Signed Impressions: Service Date/Time: Tuesday, April 18, 2017 03:37 - CONCLUSION: No significant change with persistent patchy bilateral lower lung zone opacity. David Meade MD Cervical Spine CT 04/12/17 0000 Signed Impressions: Service Date/Time: Wednesday, April 12, 2017 17:36 - CONCLUSION: Degenerative spondylosis without any significant compromise to the thecal sac or the exiting nerve roots. Maria Guadalupe Alvarado MD Last Impressions Chest X-Ray 04/17/17 0109 Signed Impressions: Service Date/Time: Monday, April 17, 2017 01:16 - CONCLUSION: 1. Right IJ central venous catheter in place with the tip in the region of proximal SVC. No evidence of pneumothorax. 2. Patchy bilateral lower lung zone opacity. David Meade MD Head CT 04/16/17 0000 Signed Impressions: Service Date/Time: April 21:08 - CONCLUSION: 1. Significant mass effect is now identified with herniation as described above. The findings of this study were discussed with Dr. Corral at 9: 2. 35 PM on April 16, 2017. Dharmesh Muhammad MD Cervical Spine CT 04/12/17 0000 Signed Impressions: Service Date/Time: Wednesday, April 12, 2017 17:36 - CONCLUSION: Degenerative spondylosis without any significant compromise to the thecal sac or the exiting nerve roots. Maria Guadalupe Alvarado MD Last Impressions Chest X-Ray 04/16/17 0600 Signed Impressions: Service Date/Time: April 04:50 - CONCLUSION: Lines and tubes. Clear lungs. Da Ramirez Jr., MD Head CT 04/15/17 0600 Signed Impressions: Service Date/Time: Saturday, April 15, 2017 04:27 - CONCLUSION: 1. Interval left craniotomy with surgical drain placement. There is new diffuse subdural hematoma involving the left side beneath the craniotomy bone despite surgical drain placement. 2. Small subdural hemorrhage along the right frontal region. This is slightly larger from the prior study. 3. Reduction in size the midline shift. Da Ramirez Jr., MD Cervical Spine CT 04/12/17 0000 Signed Impressions: Service Date/Time: Wednesday, April 12, 2017 17:36 - CONCLUSION: Degenerative spondylosis without any significant compromise to the thecal sac or the exiting nerve roots. Maria Guadalupe Alvarado MD Last [address] 04/12/17 0000 Signed Impressions: Service Date/Time: Wednesday, April 12, 2017 17:36 - CONCLUSION: Bilateral subdural hematomas in addition to parafalcine subdural hematoma, left frontal and temporal lobe intraparenchymal hemorrhages and subfalcine herniation from [id number]. Maria Guadalupe Alvarado MD Cervical Spine CT 04/12/17 0000 Signed Impressions: Service Date/Time: Wednesday, April 12, 2017 17:36 - CONCLUSION: Degenerative spondylosis without any significant compromise to the thecal sac or the exiting nerve roots. Maria Guadalupe Alvarado MD Objective Remarks GENERAL: Elderly gentleman intubated and sedated currently on fentanyl infusion for ventilator synchrony and analgesia SKIN: Warm and dry. HEAD: Atraumatic. Normocephalic. 2 KWAME drains serosanguineous fluid, minimal output EYES: Pupils equal and round. No scleral icterus. No injection or drainage. ENT: No nasal bleeding or discharge. Mucous membranes pink and moist. NECK: Trachea midline. No JVD. CARDIOVASCULAR: Regular rate and rhythm. 3/6 ROHAN RESPIRATORY: No accessory muscle use. Clear to auscultation. Breath sounds equal bilaterally. GASTROINTESTINAL: Abdomen soft, non-tender, nondistended. Hepatic and splenic margins not palpable. MUSCULOSKELETAL: Extremities without clubbing, cyanosis, or edema. No obvious deformities. NEUROLOGICAL: GCS 3T. Intubated and sedated, withdraws to pain bilateral lower extremities, positive cough,/gag reflex. No movement of upper extremities, spontaneous eye opening. Procedures 1/2-left frontoparietal craniotomy with evacuation of subacute on chronic SDH 1/5-@ 0000 emergent craniotomy with evacuation of acute recurrent left subdural hematoma Date of Insertion: Apr 13, 2017 A/P Assessment and Plan TBI -Subdural hematoma S/P Left frontoparietal craniotomy with evacuation of subacute on chronic SDH POD 4 S/P Emergency revision evacuation of acute recurrent left subdural hematoma POD 2 -Neurosurgery following. Dr. Odom - Fentanyl 75 for agitation, attempt to wean off and utilize fentanyl only in the setting of patient with hypotension. - Neuro checks per Neurosurgery recommendations. - Daily sedation vacation-and to discontinue propofol - 04/17, 04/18 , 04/18(pm)- Repeat CT head per neurosurgery-stable acute subdural hematoma within frontal regions, bilateral 5 mm subfalcine herniation to the right with slight improvement - Seizure prophylaxis with Keppra -04/17-3% normal saline at 20 cc an hour. Stopping 3% saline on 04/21 due to sodium 157 -Monitor KWAME drainage - 04/18 EEG-severe encephalopathy COPD - No exacerbation - No steroids indicated - DuoNeb scheduled and when necessary -As x-rays and ABGs when clinically indicated Dementia - Hold Aricept- 2/2 QTc prolongation H/O Hypertension Severe Hypotension Sinus tachycardia-resolved - Valsartan 80 Mg Tab 80 Mg PO DAILY ( parameters to hold for SBP < 120mmHg) -2 EKG prolonged QT 475, continue close monitoring - 04/16 Echo-severe aortic stenosis EF 50- 55 % Severe left ventricular concentric hypertrophy, aortic mean gradient of 44 -Patient currently on phenylephrine at 50 mics, and tin you to wean as tolerated -metoprolol 12.5 mg every 12 hours. Phenylephrine discontinued 03 AM on 04/19 -Repeat surveillance system monitor QTc- will hold Aricept and Zoloft which may be contributory Possible acquired von Willebrand factor deficiency 2/2 severe aortic stenosis Hematuria -Concern for possible acquired von Willebrand's factor deficiency secondary to shear stress from severe aortic stenosis. Will provide 1 dose DDAVP to mcgs. Concern for hyponatremia offset by patient currently on 3% sodium chloride at 20 cc/hr recent osmole 313 sodium level 147. Continue to monitor serum osmole's and sodium level every 6 hours Psychosis - Trazodone -on hold in 2/2 QTc prolongation - Zoloft-on hold Diabetes mellitus - Hold metformin while in the ICU - Insulin sliding scale-low dose regimen Malnutrition - Continue tube feeds Glucerna 1.5 with goal 60cc/hr Bacteremia 04/19-blood [id number] oxide and pairs and clusters. Follow-up speciation. Empiric antibiotics continued. DVT GI prophylaxis - Teds SCDs - No pharmacological DVT prophylaxis due to subdural hematoma - Pepcid BID Further recommendations per neurosurgery. Dispo: This patient remains critically ill with one or more organ systems which are or may become a threat to life. I have spent in excess of 35 minutes discontinuously in the care and management of this patient. This time is exclusive of procedures, and includes, but is not limited to, evaluation of the patient, review of the medical record, discussions with family, consultants, nursing staff, or respiratory therapy, and documentation in the medical record. Discussed with CORE LOADER at bedside. Possible acquired von Willebrand's factor deficiency contributory to persistent bleeding due to patient's severe AF. DDAVP 1 dose and continued monitoring. Sp Roman MD Apr 21, 2017 14:13
[2017-04-21] MEDS ORDERED: GLUCAGON 1 MG/ML VIAL IM/SQ PRN (14:15)
[2017-04-21] MEDS: INSULIN DETEMIR 100 UNITS/ML VIAL SQ SCH ×2 (14:15→22:08)
[2017-04-21] MEDS ORDERED: DEXTROSE 50% IN WATER 50 ML VIAL(D50) IV PRN (14:15)
[2017-04-21 14:37] LABS: BICARBONATE 26.5 MEQ/L (21.0-32.0); CALCIUM 8.9 MG/DL (8.5-10.1); CREATININE 0.82 MG/DL (0.60-1.30)
--- NOTE | 2017-04-21 14:54 | PD.CONS ---
[facility] Service Urology Consult Requested By Dr. Roman Primary Care Physician Unknown Diagnosis: History of Present Illness 71-year-old gentleman with history prostate cancer treated with radiation therapy who is presently admitted and in critical condition for subdural hematoma formation. During the course of present hospitalization the patient was noted to have development of gross hematuria and a urology consult was placed. I was unable to obtain any history from the patient however his daughter was present and provided some information. Apparently the patient was treated for prostate cancer with radiation therapy in the past with resolution of the illness. The patient has had problems with urgency after the radiation therapy and managed medically. The patient was not having any gross hematuria prior to present hospitalization. The patient has been having some drainage around the Munoz catheter since it was placed. Review of Systems ROS Limitations: Intubated Past Family Social History Past Medical History Prostate cancer COPD Diabetes mellitus Dementia Past Surgical History Status post radiation therapy for prostate cancer Reported Medications Refer to EMR Allergies: Coded Allergies: No Known Allergies (Verified Allergy, Unknown, 04/12/17) Active Ordered Medications Refer to EMR Family History Unable to obtain Social History Unable to obtain Physical Exam Vital Signs Date Time Temp Pulse Resp B/P (MAP) Pulse Ox O2 Delivery O2 Flow Rate FiO2 04/21/17 14:41 95 30 04/21/17 11:14 94 30 04/21/17 07:38 30 04/21/17 07:32 96 30 04/21/17 06:00 118 04/21/17 04:36 96 30 04/21/17 04:00 30 04/21/17 04:00 112 04/21/17 04:00 99.6 112 18 155/62 (93) 96 04/21/17 02:00 107 04/21/17 01:18 97 30 04/21/17 00:00 30 04/21/17 00:00 94 04/21/17 00:00 99.1 94 16 116/46 (69) 97 04/20/17 23:27 96 Ventilator 30 04/20/17 23:19 96 30 04/20/17 22:00 109 04/20/17 22:00 131/54 04/20/17 21:30 110 83/37 04/20/17 20:00 101.6 124 17 164/76 (105) 96 152/56 (88) 04/20/17 20:00 30 04/20/17 20:00 136 04/20/17 19:45 30 04/20/17 19:40 97 30 04/20/17 18:30 30 04/20/17 18:00 122 04/20/17 17:55 100 100 04/20/17 16:00 99.3 112 20 163/65 (97) 97 04/20/17 16:00 30 04/20/17 16:00 112 04/20/17 15:10 30 04/20/17 15:10 97 30 Physical Exam GENERAL: Intubated SKIN: No rashes, ecchymoses or lesions. Cool and dry. HEAD: Atraumatic. Normocephalic. No temporal or scalp tenderness. EYES: Pupils equal round and reactive. Extraocular motions intact. No scleral icterus. No injection or drainage. ENT: Nose without bleeding, purulent drainage or septal hematoma. Throat without erythema, tonsillar hypertrophy or exudate. Uvula midline. Airway patent. NECK: Trachea midline. No JVD or lymphadenopathy. Supple, nontender, no meningeal signs.. GASTROINTESTINAL: Abdomen soft, non-tender, nondistended. No hepato-splenomegaly , or palpable masses. No guarding. GENITOURINARY: Munoz catheter in place draining meeting red urine without clots. Bladder not distended. MUSCULOSKELETAL: Extremities without clubbing, cyanosis, or edema. NEUROLOGICAL: On ventilator Lab results reviewed: Yes Laboratory Tests Test 04/20/17 18:50 04/21/17 04:15 04/21/17 12:35 Sodium Level 152 155 157 Serum Osmolality 331 337 Blood Urea Nitrogen 23 26 Creatinine 0.82 0.95 Random Glucose 270 321 Calcium Level 8.9 8.8 Potassium Level 3.5 3.5 Chloride Level 119 121 Carbon Dioxide Level 26.5 27.4 Anion Gap 10 9 Estimat Glomerular Filtration Rate 93 78 Date/Time Source Procedure Growth Status 04/17/17 14:15 Blood Peripheral Aerobic Blood Culture - Preliminary NO GROWTH IN 4 DAYS Resulted 04/17/17 14:15 Blood Peripheral Anaerobic Blood Culture - Preliminary NO GROWTH IN 4 DAYS Resulted 04/20/17 13:30 Sputum Endotracheal Gram Stain - Final Resulted 04/20/17 13:30 Sputum Culture - Preliminary Gram Negative Ran Resulted Result Diagram: 04/20/17 0450 04/21/17 1235 Imaging Last Impressions Head CT 1/8/18 0000 Signed Impressions: Service Date/Time: Thursday, April 20, 2017 17:38 - CONCLUSION: 1. Stable left subdural drains with evolving acute bifrontal subdural hematomas and improving subfalcine herniation. 2. Slightly more prominent bilateral posterior parietal subdural hematomas which may be due to different positioning in the gantry. Thierry Barros MD Chest X-Ray 04/19/17 0000 Signed Impressions: Service Date/Time: Wednesday, April 19, 2017 20:06 - CONCLUSION: 1. Status post right subclavian central line placement without evidence of pneumothorax. 2. Satisfactory position of endotracheal and nasogastric tubes. 3. Persistent perihilar infiltrate. Robin Solomon MD Cervical Spine CT 04/12/17 0000 Signed Impressions: Service Date/Time: Wednesday, April 12, 2017 17:36 - CONCLUSION: Degenerative spondylosis without any significant compromise to the thecal sac or the exiting nerve roots. Maria Guadalupe Alvarado MD Assessment and Plan Assessment and Plan Urologic impression: #1 history prostate cancer status post treatment with radiation therapy #2 gross hematuria of indeterminate etiology and may be related to history of radiation therapy #3 overactive bladder related to radiation therapy Recommendations: #1 replace Munoz catheter with a 18 Gu[place]ian coud and irrigate when necessary clots (presently has a 14 Guamanian catheter) #2 tolterodine 4 mg by mouth daily for management of bladder spasms #3 would hold off on any further workup and evaluation until overall medical condition improves Heath Woods MD Apr 21, 2017 14:54
[2017-04-21] MEDS: TOLTERODINE TARTRATE 4 MG CAP LA PO SCH (15:00)
[2017-04-21] MEDS: NOREPINEPHRINE 4 MG/NS 250 ML IV PRN ×4 (16:00→22:30)
[2017-04-21] MEDS: DEXMEDETOMIDINE INJ 200 MCG in SODIUM CHLORIDE 0.9% INJ 50 ML IV PRN ×2 (16:30→22:04)
[2017-04-21] MEDS: fentaNYL DRIP 250 ML IV PRN (16:58)
[2017-04-21] MEDS: ALTEPLASE RECOMBINANT 2 MG VIAL INTRACATH PRN (17:03)
[2017-04-21 18:36] LABS: AUTOMATED NEUTROPHIL # 13.9 TH/MM3 (1.8-7.7); BASOPHIL % 0.3 % (0.0-2.0); EOSINOPHIL % 0.1 % (0.0-4.0); HEMATOCRIT 23.8 % (39.0-51.0); LYMPH % 4.7 % (9.0-44.0); LYMPHOCYTE # 0.8 TH/MM3 (1.0-4.8); MEAN CELL VOLUME 89.7 FL (80.0-100.0); MEAN CORPUSCULAR HEMOGLOBIN 30.1 PG (27.0-34.0); MEAN CORPUSCULAR HGB CONC 33.5 % (32.0-36.0); MEAN PLATELET VOLUME 7.3 FL (7.0-11.0); MONO % 9.2 % (0.0-8.0); MONOCYTE # 1.5 TH/MM3 (0-0.9); NEUT % 85.7 % (16.0-70.0); PLATELET COUNT 492 TH/MM3 (150-450); RED BLOOD COUNT 2.65 MIL/MM3 (4.50-5.90); RED CELL DISTRIBUTION WIDTH 15.1 % (11.6-17.2); WHITE BLOOD COUNT 16.2 TH/MM3 (4.0-11.0)
[2017-04-21] MEDS: PIPERACIL-TAZO 4.5 GM PREMIX 100 ML IV SCH (19:04)
--- NOTE | 2017-04-21 22:40 | HHI.NSPN ---
History Chief Complaint: Unable to obtain due to patient's clinical condition. Interval History The patient was examined in the presence of the family today and a more detailed history has been obtained. They indicate chronic progressive dementia to the point that the patient has had to move in with his daughter earlier this year. He cannot care for himself. He is usually quite confused, conversing with only a few words or short sentences and unable to stay on task with conversations. He is usually very active, fidgeting constantly. They state that his mental status today is not significantly changed from his overall baseline. He did go to the emergency room a couple of weeks ago at [facility] due to some pressure sensation or frontal headaches and was diagnosed with sinus congestion. A CT scan of the head was not obtained. He has had no definite falls over the past few weeks up until yesterday. Exam Results Vital Signs Date Time Temp Pulse Resp B/P (MAP) Pulse Ox O2 Delivery O2 Flow Rate FiO2 04/21/17 21:28 92 50 04/21/17 20:00 101.9 128 23 170/60 (96) 04/20/17 23:27 Ventilator Intake and Output 04/21/17 04/21/17 04/22/17 08:00 16:00 00:00 Intake Total 605 ml 100 ml 875 ml Output Total 1205 ml 1900 ml Balance -600 ml 100 ml -1025 ml Physical Examination GENERAL: Intubated and sedated HEENT: Left craniotomy surgical incision well approximated with gilles, KWAME drain to bulb suction x2 w/serous-appearing drainage noted. PERRLA 3mm reactive. Orally intubated. OGT. MUSCULOSKELETAL: No clubbing or deformity evident. NEUROLOGICAL: Intubated and sedated Nonverbal, intubated. No eye opening to voice or deep pain. Facial grimacing to noxious stimulation. Mild flexion upper extremities to deep pain Not following commands Lab, Micro, Other Results Laboratory Tests Test 04/21/17 04:15 04/21/17 12:35 04/21/17 18:00 Sodium Level 155 MEQ/L 157 MEQ/L Blood Urea Nitrogen 23 MG/DL 26 MG/DL Creatinine 0.82 MG/DL 0.95 MG/DL Random Glucose 270 MG/DL 321 MG/DL Calcium Level 8.9 MG/DL 8.8 MG/DL Potassium Level 3.5 MEQ/L 3.5 MEQ/L Chloride Level 119 MEQ/L 121 MEQ/L Carbon Dioxide Level 26.5 MEQ/L 27.4 MEQ/L Anion Gap 10 MEQ/L 9 MEQ/L Estimat Glomerular Filtration Rate 93 ML/MIN 78 ML/MIN Serum Osmolality 337 MOSM/KG White Blood Count 16.2 TH/MM3 Red Blood Count 2.65 MIL/MM3 Hemoglobin 8.0 GM/DL Hematocrit 23.8 % Mean Corpuscular Volume 89.7 FL Mean Corpuscular Hemoglobin 30.1 PG Mean Corpuscular Hemoglobin Concent 33.5 % Red Cell Distribution Width 15.1 % Platelet Count 492 TH/MM3 Mean Platelet Volume 7.3 FL Neutrophils (%) (Auto) 85.7 % Lymphocytes (%) (Auto) 4.7 % Monocytes (%) (Auto) 9.2 % Eosinophils (%) (Auto) 0.1 % Basophils (%) (Auto) 0.3 % Neutrophils # (Auto) 13.9 TH/MM3 Lymphocytes # (Auto) 0.8 TH/MM3 Monocytes # (Auto) 1.5 TH/MM3 Eosinophils # (Auto) 0.0 TH/MM3 Basophils # (Auto) 0.0 TH/MM3 CBC Comment DIFF FINAL Differential Comment Medical Decision Making Impression and Plan Impression: 1. Neurologic exam relatively stable over the past couple days. Now on pressors for hypotension. Positive fever over the past couple of days. Remains is relatively high subdural drain output. 04/20/17 CT scan head with partial resolution of the recurrent/residual left frontal subdural hematoma Plan: Discussed with patient's family today on the telephone Plan follow-up CT scan head in the next one-2 days. Possible return to OR on 02/28 versus further conservative treatment pending follow-up CT scan head results. Prognosis guarded . Sylvester Odom MD Apr 21, 2017 22:40
[2017-04-22] VITALS (13 sets, daily range): BP systolic 105–137; BP diastolic 44–63; PULSE 85–122; RESP 16–29; TEMP 99.4–102.8; O2SAT 93–100
[2017-04-22] MEDS: PIPERACIL-TAZO 4.5 GM PREMIX 100 ML IV SCH ×5 (00:12→23:45)
[2017-04-22] MEDS: INSULIN ASPART SUPPLEMENTAL SCALE SQ SCH ×5 (00:12→23:47)
[2017-04-22] MEDS: ALTEPLASE RECOMBINANT 2 MG VIAL INTRACATH PRN (03:39)
[2017-04-22] MEDS: ACETAMINOPHEN 325 MG TAB PO PRN ×2 (03:41→21:00)
[2017-04-22] MEDS: CHLORHEXIDINE GLUCONATE 2 % 1 PACK (2 CLOTHS) TOP SCH (04:00)
--- NOTE | 2017-04-22 06:02 | RADRPT ---
EXAM DATE/TIME: 04/22/2017 04:52 [facility] COMPARISON: CHEST SINGLE AP, April 19, 2017, 20:06. INDICATIONS : Shortness of breath. MEDICAL HISTORY : None. SURGICAL HISTORY : None. ENCOUNTER: Subsequent ACUITY: 1 week PAIN SCORE: Non-responsive. LOCATION: Bilateral chest FINDINGS: The cardiac silhouette is normal in transverse diameter. There is patchy alveolar disease bilaterally compatible with edema or pneumonia. There has been no significant change when compared to the prior exam. No pleural effusions are identified. CONCLUSION: 1. Patchy alveolar disease characteristic of edema or pneumonia. There has been no significant seymour e when compared to the prior exam. Eamon Azul MD on April 22, 2017 at 6:00 Board Certified Radiologist. This report was verified electronically.
[2017-04-22 06:58] LABS: AUTOMATED NEUTROPHIL # 18.7 TH/MM3 (1.8-7.7); BASOPHIL # 0.1 TH/MM3 (0-0.2); BASOPHIL % 0.3 % (0.0-2.0); HEMATOCRIT 23.3 % (39.0-51.0); HEMOGLOBIN 7.5 GM/DL (13.0-17.0); LYMPH % 1.9 % (9.0-44.0); LYMPHOCYTE # 0.4 TH/MM3 (1.0-4.8); MEAN CELL VOLUME 89.6 FL (80.0-100.0); MEAN CORPUSCULAR HGB CONC 32.3 % (32.0-36.0); MEAN PLATELET VOLUME 7.4 FL (7.0-11.0); MONO % 4.9 % (0.0-8.0); NEUT % 92.9 % (16.0-70.0); PLATELET COUNT 425 TH/MM3 (150-450); RED CELL DISTRIBUTION WIDTH 14.7 % (11.6-17.2); WHITE BLOOD COUNT 20.1 TH/MM3 (4.0-11.0)
[2017-04-22 07:27] LABS: ALKALINE PHOSPHATASE 53 U/L (45-117); ALT (GPT) 15 U/L (12-78); AST (GOT) 13 U/L (15-37); BICARBONATE 25.1 MEQ/L (21.0-32.0); BLOOD UREA NITROGEN 41 MG/DL (7-18); CALCIUM 8.2 MG/DL (8.5-10.1); CHLORIDE 126 MEQ/L (98-107); CREATININE 2.24 MG/DL (0.60-1.30); GLOMERULAR FILTRATION RATE 29 ML/MIN (>89); GLUCOSE,RANDOM 242 MG/DL (74-106); TOTAL BILIRUBIN ADULT 0.5 MG/DL (0.2-1.0); TOTAL PROTEIN 5.9 GM/DL (6.4-8.2)
[2017-04-22 07:42] LABS: SODIUM (NA) 160 MEQ/L (136-145)
[2017-04-22] MEDS ORDERED: SODIUM CHLOR 0.9% 250 ML INJ 250 ML IV ONE (07:45)
[2017-04-22] MEDS ORDERED: SODIUM CHLOR 0.9% 1000 ML INJ 1,000 ML IV ONE (07:45)
[2017-04-22] MEDS ORDERED: SODIUM CHLOR 0.9% 1000 ML INJ 1,000 ML IV SCH (07:45)
--- NOTE | 2017-04-22 08:30 | HHI.CCPN ---
Subjective Remarks/Hospital Course 04/12: 71-year-old male presents for evaluation after he fell hitting his head. Per family report they were in the bathroom trying to change his undergarments when he slipped and fell hitting his head. He is not on anticoagulant. The patient is pleasantly confused and patient's daughter states this is his baseline. He has had no altered mental status since the fall. No vomiting. The patient reports a mild headache without radiation. No neck pain or back pain. He has been ambulatory without difficulty since the fall. The CT head performed in the emergency department shows bilateral subdural hematomas in addition to parafalcine subdural hematoma, left frontal and temporal lobe intraparenchymal hemorrhages and subfalcine herniation from [id number]. 04/13: Resting in bed comfortably at the time of my evaluation this morning. Confused, does not know the year. Knows he is in the hospital. Moves all 4 extremity's. Does not appear to be in any acute distress. 04/14: Afebrile. The patient continues to be confused but easily following commands notable systolic ejection murmur, echo pending. Patient scheduled for neurosurgical intervention this afternoon. 04/15: Tmax 99.3. The patient status post craniotomy with evacuation of subdural hematoma last evening, remained intubated, only on sedation with propofol infusion and requiring low-dose phenylephrine to maintain map greater than 65. Sedation was briefly lightened last evening postoperatively, and the patient was extremely agitated. IV fluids changed from D5W to normal saline with [address] brain performed. INR pending. 04/16: Tmax 99.8 Patient agitated during the night , swinging his legs out of the bed while on maximum doses of propofol infusion, fentanyl infusion low-dose added this a.m. Patient's diet advance will begin tube feeds this a.m. The patient was noted to have multifocal PVCs intermittent during the night potassium level 3.2 currently being repleted with K-Phos. 04/17: Tmax 101.6. The patient underwent emergent craniotomy for evacuation of acute recurrent left subdural hematoma last evening. The patient continues on 3 % normal saline, with serial sodium and osmole is being followed. Currently weaning slowly sedation for neuro assessment. Patient noted to have a significant elevation in WBC count of 22, blood cultures urine cultures and sputum cultures obtained. Chest x-ray now showing bilateral lung opacities edema versus possible infectious process being ruled out. Echo revealed patient has severe aortic stenosis with a roommate mean gradient of 44. The patient continues on phenylephrine for vasopressors support at this time. 04/18: Last evening, the patient went into A. fib RVR, heart rate low 100s, with self resolution. This a.m. the patient continues to have sinus rhythm/sinus tachycardia 90-105 with frequent multifocal PVCs. Electrolytes within normal limits. Given the significant medical history for severe aortic stenosis metoprolol 2.5 mg IV for rapid heart rate instituted. The patient continues on phenylephrine infusion for maintenance of a map greater than 65. Propofol is currently being weaned off. EEG revealed last night severe encephalopathy. No change in neurological status but patient still is under sedation patient withdraws to pain bilateral lower extremities and now has spontaneous eye opening intermittently. Leukocytosis notably is resolving. 04/19: Afebrile. Today afternoon the patient was noted to have a seizure, Ativan 1 mg IV push with resolution EEG ordered. Post seizure the patient was noted to have gross hematuria. Coag studies performed within normal limits, fibrinogen level slightly elevated . Creatinine kinase noted to be within normal limits. Hematuria thought to possibly be secondary to acquired von Willebrand's factor secondary to the shear stress from his severe aortic stenosis. DDAVP 2 mcgs IV 1 dose ordered this a.m.. Patient continues on 3% sodium chloride, phenylephrine has been discontinued. 04/20: Remains sedated, orally intubated on mechanical ventilation. Remains on 3 % saline. Off phenylephrine currently. Blood pressure labile. Tolerating tube feeds. 04/21: Remains sedated, orally intubated on mechanical ventilation. Stopping 3% saline. Tolerating tube feeds 04/22: Remains sedated, orally intubated on mechanical ventilation. On Levophed for pressor support. Spiking temperatures. Started on Zosyn yesterday. Continues to have hematuria. One unit PRBCs and fluid bolus ordered. Objective Vital Signs Date Time Temp Pulse Resp B/P (MAP) Pulse Ox O2 Delivery O2 Flow Rate FiO2 04/22/17 04:35 100 60 04/22/17 04:00 102.8 122 20 105/63 (77) 110/50 (70) 04/20/17 23:27 Ventilator Intake and Output 04/22/17 04/22/17 04/22/17 07:59 15:59 23:59 Intake Total 610 ml Output Total 550 ml Balance 60 ml Result Diagram: 04/22/17 0600 04/22/17 0610 Imaging Last Impressions Head CT 04/18/17 1200 Signed Impressions: Service Date/Time: Tuesday, April 18, 2017 13:04 - CONCLUSION: Stable acute subdural hematomas within the frontal regions bilaterally measuring 15 mm in greatest width on the left and 9 mm in greatest width on the right and resulting in 5 mm of subfalcine herniation to the right which is slightly improved compared to the previous examination. Left posterior parietal and tentorial subdural hematomas are stable also. Adriel Cherry MD Chest X-Ray 04/18/17 0600 Signed Impressions: Service Date/Time: Tuesday, April 18, 2017 03:37 - CONCLUSION: No significant change with persistent patchy bilateral lower lung zone opacity. David Meade MD Cervical Spine CT 04/12/17 0000 Signed Impressions: Service Date/Time: Wednesday, April 12, 2017 17:36 - CONCLUSION: Degenerative spondylosis without any significant compromise to the thecal sac or the exiting nerve roots. Maria Guadalupe Alvarado MD Last Impressions Chest X-Ray 04/17/17 0109 Signed Impressions: Service Date/Time: Monday, April 17, 2017 01:16 - CONCLUSION: 1. Right IJ central venous catheter in place with the tip in the region of proximal SVC. No evidence of pneumothorax. 2. Patchy bilateral lower lung zone opacity. David Meade MD Head CT 04/16/17 0000 Signed Impressions: Service Date/Time: April 21:08 - CONCLUSION: 1. Significant mass effect is now identified with herniation as described above. The findings of this study were discussed with Dr. Corral at 9: 2. 35 PM on April 16, 2017. Dharmesh Muhammad MD Cervical Spine CT 04/12/17 0000 Signed Impressions: Service Date/Time: Wednesday, April 12, 2017 17:36 - CONCLUSION: Degenerative spondylosis without any significant compromise to the thecal sac or the exiting nerve roots. Maria Guadalupe Alvardao MD Last Impressions Chest X-Ray 04/16/17 0600 Signed Impressions: Service Date/Time: April 04:50 - CONCLUSION: Lines and tubes. Clear lungs. Da Ramirez Jr., MD Head CT 04/15/17 0600 Signed Impressions: Service Date/Time: Saturday, April 15, 2017 04:27 - CONCLUSION: 1. Interval left craniotomy with surgical drain placement. There is new diffuse subdural hematoma involving the left side beneath the craniotomy bone despite surgical drain placement. 2. Small subdural hemorrhage along the right frontal region. This is slightly larger from the prior study. 3. Reduction in size the midline shift. Da Ramirez Jr., MD Cervical Spine CT 04/12/17 0000 Signed Impressions: Service Date/Time: Wednesday, April 12, 2017 17:36 - CONCLUSION: Degenerative spondylosis without any significant compromise to the thecal sac or the exiting nerve roots. Maria Guadalupe Alvarado MD Last [address] 04/12/17 0000 Signed Impressions: Service Date/Time: Wednesday, April 12, 2017 17:36 - CONCLUSION: Bilateral subdural hematomas in addition to parafalcine subdural hematoma, left frontal and temporal lobe intraparenchymal hemorrhages and subfalcine herniation from [id number]. Maria Guadalupe Alvarado MD Cervical Spine CT 04/12/17 0000 Signed Impressions: Service Date/Time: Wednesday, April 12, 2017 17:36 - CONCLUSION: Degenerative spondylosis without any significant compromise to the thecal sac or the exiting nerve roots. Maria Guadalupe Alvarado MD Objective Remarks GENERAL: Elderly gentleman intubated and sedated currently on fentanyl infusion for ventilator synchrony and analgesia SKIN: Warm and dry. HEAD: Atraumatic. Normocephalic. 2 KWAME drains serosanguineous fluid, minimal output EYES: Pupils equal and round. No scleral icterus. No injection or drainage. ENT: No nasal bleeding or discharge. Mucous membranes pink and moist. NECK: Trachea midline. No JVD. CARDIOVASCULAR: Regular rate and rhythm. 3/6 ROHAN RESPIRATORY: No accessory muscle use. Clear to auscultation. Breath sounds equal bilaterally. GASTROINTESTINAL: Abdomen soft, non-tender, nondistended. Hepatic and splenic margins not palpable. MUSCULOSKELETAL: Extremities without clubbing, cyanosis, or edema. No obvious deformities. NEUROLOGICAL: GCS 3T. Intubated and sedated, withdraws to pain bilateral lower extremities, positive cough,/gag reflex. No movement of upper extremities, spontaneous eye opening. Procedures /2-left frontoparietal craniotomy with evacuation of subacute on chronic SDH 04/17-@ 0000 emergent craniotomy with evacuation of acute recurrent left subdural hematoma Urinary Catheter: Yes Assessment to: Continue Munoz insert reason: Measure Accurate Output Date of Insertion: Apr 13, 2017 A/P Assessment and Plan TBI -Subdural hematoma S/P Left frontoparietal craniotomy with evacuation of subacute on chronic SDH POD 4 S/P Emergency revision evacuation of acute recurrent left subdural hematoma POD 2 -Neurosurgery following. Dr. Odom - Fentanyl gtt for agitation, attempt to wean off and utilize fentanyl only in the setting of patient with hypotension. Titrate off propofol. - Neuro checks per protocol - Daily sedation vacation - Repeat CT head per neurosurgery-stable acute subdural hematoma within frontal regions, bilateral 5 mm subfalcine herniation to the right - Seizure prophylaxis with Keppra -04/17-3% normal saline at 20 cc an hour. Stopping 3% saline on 04/21 due to sodium 157 -Monitor KWAME drainage. Repeat head CT plan for 04/23 with subsequent decision regarding SDH evacuation per Dr. Graves - 04/18 EEG-severe encephalopathy COPD Acute respiratory failure on mechanical ventilation - No exacerbation. No steroids indicated - Continue mechanical ventilation, vent bundle, bronchodilators. Daily C Pap trials. Patient lasted 4 hours on C Pap yesterday. - DuoNeb scheduled and when necessary - Chest x-rays and ABGs when clinically indicated Dementia - Hold Aricept- 2/2 QTc prolongation H/O Hypertension Severe Hypotension Sinus tachycardia -Hold all antihypertensives as patient is requiring Levophed for pressor support Continue Levophed gtt., added low-dose vasopressin on 04/22 to maintain MAP greater than 65 -1/2 EKG prolonged QT 475, continue close monitoring - 04/16 Echo-severe aortic stenosis EF 50- 55 % Severe left ventricular concentric hypertrophy, aortic mean gradient of 44 - Patient currently on phenylephrine at 50 mics, and tin you to wean as tolerated - Phenylephrine discontinued 03 AM on 04/19 - Repeat compliance monitor QTc- will hold Aricept and Zoloft which may be contributory Hematuria Munoz catheter changed per urology recommendations on 04/21. Dr. Woods following. May require CBI. Ordered 1 unit PRBCs on 04/22 for ongoing blood loss from hematuria with drop in hemoglobin and hypotension. Psychosis - Trazodone -on hold in 2/2 QTc prolongation - Zoloft-on hold Uncontrolled Diabetes mellitus - Hold metformin - Insulin sliding scale-high dose dose regimen, increase Levemir from 15 to 30 units every 12 hourly on 04/22 Malnutrition - Continue tube feeds Glucerna 1.5 with goal 60cc/hr Septic shock Pneumonia Bacteremia 04/19-blood [id number] cocci 04/14 sets - contaminant 04/20 - Sputum cultures with GNR, follow-up speciation. Empiric zosyn started 04/21. DVT GI prophylaxis - Teds SCDs - No pharmacological DVT prophylaxis due to subdural hematoma - Pepcid BID Further recommendations per neurosurgery. Dispo: This patient remains critically ill with one or more organ systems which are or may become a threat to life. I have spent in excess of 35 minutes discontinuously in the care and management of this patient. This time is exclusive of procedures, and includes, but is not limited to, evaluation of the patient, review of the medical record, discussions with family, consultants, nursing staff, or respiratory therapy, and documentation in the medical record. Discussed with JAVA DEVELOPER at bedside. Sp Roman MD Apr 22, 2017 08:30
[2017-04-22] MEDS: FAMOTIDINE 20 MG/2 ML VIAL IV PUSH SCH ×2 (09:00→20:32)
[2017-04-22] MEDS: levETIRAcetam INJ 500 MG in SODIUM CHLORIDE 0.9% INJ 100 ML IV SCH ×2 (09:00→20:31)
[2017-04-22] MEDS: TOLTERODINE TARTRATE 4 MG CAP LA PO SCH (09:00)
[2017-04-22] MEDS: DOCUSATE SODIUM 50 MG/SENNA 8.6 MG TAB PO SCH ×2 (09:00→20:31)
[2017-04-22] MEDS: VALSARTAN 80 MG TAB PO SCH (09:00)
[2017-04-22] MEDS: INSULIN DETEMIR 100 UNITS/ML VIAL SQ SCH ×2 (09:00→20:31)
[2017-04-22] MEDS: GABAPENTIN 400 MG CAP PO SCH ×3 (09:00→17:52)
[2017-04-22] MEDS: PRAVASTATIN SOD 40 MG TAB PO SCH (09:00)
[2017-04-22] MEDS: SODIUM CHLORIDE 0.9% FLUSH 10 ML FLUSH IV FLUSH SCH ×2 (09:00→20:32)
[2017-04-22] MEDS: VASOPRESSIN INJ 40 UNITS in SODIUM CHLORIDE 0.9% INJ 98 ML IV SCH (09:10)
[2017-04-22 13:53] LABS: VWF AG 266 % (50-217)
[2017-04-22 16:43] LABS: HEMATOCRIT 21.4 % (39.0-51.0); HEMOGLOBIN 7.3 GM/DL (13.0-17.0)
[2017-04-22 17:52] LABS: VWF RISTOCETIN CO FACTOR 170 (42-200)
[2017-04-22 19:53] LABS: APTT VON WILL EVAL 34 sec (22-34); COAG FACTOR VIII 156 (50-180)
[2017-04-23] VITALS (13 sets, daily range): BP systolic 120–140; BP diastolic 44–61; PULSE 85–107; RESP 14–22; TEMP 98.6–99.4; O2SAT 96–100
[2017-04-23] MEDS ORDERED: ETOMIDATE 40 MG/20 ML VIAL ONE (00:02)
[2017-04-23 00:43] LABS: HEMATOCRIT 24.8 % (39.0-51.0); HEMOGLOBIN 8.3 GM/DL (13.0-17.0)
[2017-04-23] MEDS ORDERED: ETOMIDATE 20 MG/10 ML VIAL IV PUSH ONE (00:45)
[2017-04-23] MEDS ORDERED: SUCCINYLCHOLINE CHLORIDE 100 MG/5 ML SYRINGE IV PUSH ONE (00:45)
[2017-04-23] MEDS: VASOPRESSIN INJ 40 UNITS in SODIUM CHLORIDE 0.9% INJ 98 ML IV SCH ×2 (02:40→19:20)
[2017-04-23] MEDS: CHLORHEXIDINE GLUCONATE 2 % 1 PACK (2 CLOTHS) TOP SCH (04:00)
--- NOTE | 2017-04-23 04:13 | RADRPT ---
EXAM DATE/TIME: 04/23/2017 03:32 [facility] COMPARISON: CHEST SINGLE AP, April 22, 2017, 4:52. INDICATIONS : Post intubation. MEDICAL HISTORY : None. SURGICAL HISTORY : None. ENCOUNTER: Initial ACUITY: 1 day PAIN SCORE: Non-responsive. LOCATION: Bilateral chest FINDINGS: Endotracheal tube is in good position above the wilfred. The cardiac silhouette is normal in transvers e diameter. Perihilar pulmonary edema is present. No pleural effusions are identified. CONCLUSION: 1. Satisfactory position of endotracheal tube as above. 2. Perihilar pulmonary edema unchanged Eamon Azul MD on April 23, 2017 at 4:11 Board Certified Radiologist. This report was verified electronically.
[2017-04-23] MEDS: PIPERACIL-TAZO 4.5 GM PREMIX 100 ML IV SCH ×4 (05:12→23:50)
[2017-04-23] MEDS: INSULIN ASPART SUPPLEMENTAL SCALE SQ SCH ×4 (05:49→23:50)
--- NOTE | 2017-04-23 08:47 | HHI.CCPN ---
Subjective Remarks/Hospital Course 04/12: 71-year-old male presents for evaluation after he fell hitting his head. Per family report they were in the bathroom trying to change his undergarments when he slipped and fell hitting his head. He is not on anticoagulant. The patient is pleasantly confused and patient's daughter states this is his baseline. He has had no altered mental status since the fall. No vomiting. The patient reports a mild headache without radiation. No neck pain or back pain. He has been ambulatory without difficulty since the fall. The CT head performed in the emergency department shows bilateral subdural hematomas in addition to parafalcine subdural hematoma, left frontal and temporal lobe intraparenchymal hemorrhages and subfalcine herniation from [id number]. 04/13: Resting in bed comfortably at the time of my evaluation this morning. Confused, does not know the year. Knows he is in the hospital. Moves all 4 extremity's. Does not appear to be in any acute distress. 04/14: Afebrile. The patient continues to be confused but easily following commands notable systolic ejection murmur, echo pending. Patient scheduled for neurosurgical intervention this afternoon. 04/15: Tmax 99.3. The patient status post craniotomy with evacuation of subdural hematoma last evening, remained intubated, only on sedation with propofol infusion and requiring low-dose phenylephrine to maintain map greater than 65. Sedation was briefly lightened last evening postoperatively, and the patient was extremely agitated. IV fluids changed from D5W to normal saline with [address] brain performed. INR pending. 04/16: Tmax 99.8 Patient agitated during the night , swinging his legs out of the bed while on maximum doses of propofol infusion, fentanyl infusion low-dose added this a.m. Patient's diet advance will begin tube feeds this a.m. The patient was noted to have multifocal PVCs intermittent during the night potassium level 3.2 currently being repleted with K-Phos. 04/17: Tmax 101.6. The patient underwent emergent craniotomy for evacuation of acute recurrent left subdural hematoma last evening. The patient continues on 3 % normal saline, with serial sodium and osmole is being followed. Currently weaning slowly sedation for neuro assessment. Patient noted to have a significant elevation in WBC count of 22, blood cultures urine cultures and sputum cultures obtained. Chest x-ray now showing bilateral lung opacities edema versus possible infectious process being ruled out. Echo revealed patient has severe aortic stenosis with a roommate mean gradient of 44. The patient continues on phenylephrine for vasopressors support at this time. 04/18: Last evening, the patient went into A. fib RVR, heart rate low 100s, with self resolution. This a.m. the patient continues to have sinus rhythm/sinus tachycardia 90-105 with frequent multifocal PVCs. Electrolytes within normal limits. Given the significant medical history for severe aortic stenosis metoprolol 2.5 mg IV for rapid heart rate instituted. The patient continues on phenylephrine infusion for maintenance of a map greater than 65. Propofol is currently being weaned off. EEG revealed last night severe encephalopathy. No change in neurological status but patient still is under sedation patient withdraws to pain bilateral lower extremities and now has spontaneous eye opening intermittently. Leukocytosis notably is resolving. 04/19: Afebrile. Today afternoon the patient was noted to have a seizure, Ativan 1 mg IV push with resolution EEG ordered. Post seizure the patient was noted to have gross hematuria. Coag studies performed within normal limits, fibrinogen level slightly elevated . Creatinine kinase noted to be within normal limits. Hematuria thought to possibly be secondary to acquired von Willebrand's factor secondary to the shear stress from his severe aortic stenosis. DDAVP 2 mcgs IV 1 dose ordered this a.m.. Patient continues on 3% sodium chloride, phenylephrine has been discontinued. 04/20: Remains sedated, orally intubated on mechanical ventilation. Remains on 3 % saline. Off phenylephrine currently. Blood pressure labile. Tolerating tube feeds. 04/21: Remains sedated, orally intubated on mechanical ventilation. Stopping 3% saline. Tolerating tube feeds 04/22: Remains sedated, orally intubated on mechanical ventilation. On Levophed for pressor support. Spiking temperatures. Started on Zosyn yesterday. Continues to have hematuria. One unit PRBCs and fluid bolus ordered. 04/23: Appears to have developed ADRIANNE from osmotic diuresis associated with poorly controlled diabetes. Hyperglycemia exacerbated by dextrose containing solution. Will start constant carb feedings with glucerna, reduce levemir, add SSI coverage, and hydrate to correct fluid depletion. Objective Vital Signs Date Time Temp Pulse Resp B/P (MAP) Pulse Ox O2 Delivery O2 Flow Rate FiO2 04/23/17 08:26 45 04/23/17 08:25 98 04/23/17 04:00 99.4 85 22 130/44 (72) 04/23/17 03:13 Ventilator 04/23/17 00:00 6.00 Intake and Output 04/23/17 04/23/17 04/24/17 08:00 16:00 00:00 Output Total 1500 ml Balance -1500 ml Result Diagram: 04/23/17 0030 04/22/17 0610 Other Results Microbiology Date/Time Source Procedure Growth Status 04/20/17 13:30 Sputum Endotracheal Gram Stain - Final Complete 04/20/17 13:30 Sputum Culture - Final Escherichia Coli Klebsiella Pneumoniae Complete Imaging Last Impressions Head CT 04/18/17 1200 Signed Impressions: Service Date/Time: Tuesday, April 18, 2017 13:04 - CONCLUSION: Stable acute subdural hematomas within the frontal regions bilaterally measuring 15 mm in greatest width on the left and 9 mm in greatest width on the right and resulting in 5 mm of subfalcine herniation to the right which is slightly improved compared to the previous examination. Left posterior parietal and tentorial subdural hematomas are stable also. Adriel Cherry MD Chest X-Ray 04/18/17 0600 Signed Impressions: Service Date/Time: Tuesday, April 18, 2017 03:37 - CONCLUSION: No significant change with persistent patchy bilateral lower lung zone opacity. David Meade MD Cervical Spine CT 04/12/17 0000 Signed Impressions: Service Date/Time: Wednesday, April 12, 2017 17:36 - CONCLUSION: Degenerative spondylosis without any significant compromise to the thecal sac or the exiting nerve roots. Maria Guadalupe Alvarado MD Last Impressions Chest X-Ray 04/17/17 0109 Signed Impressions: Service Date/Time: Monday, April 17, 2017 01:16 - CONCLUSION: 1. Right IJ central venous catheter in place with the tip in the region of proximal SVC. No evidence of pneumothorax. 2. Patchy bilateral lower lung zone opacity. David Meade MD Head CT 04/16/17 0000 Signed Impressions: Service Date/Time: April 21:08 - CONCLUSION: 1. Significant mass effect is now identified with herniation as described above. The findings of this study were discussed with Dr. Corral at 9: 2. 35 PM on April 16, 2017. Dharmesh Muhammad MD Cervical Spine CT 04/12/17 0000 Signed Impressions: Service Date/Time: Wednesday, April 12, 2017 17:36 - CONCLUSION: Degenerative spondylosis without any significant compromise to the thecal sac or the exiting nerve roots. Maria Guadalupe Alvarado MD Last Impressions Chest X-Ray 04/16/17 06 Signed Impressions: Service Date/Time: April 04:50 - CONCLUSION: Lines and tubes. Clear lungs. Da Ramirez Jr., MD Head CT 04/15/17 0600 Signed Impressions: Service Date/Time: Saturday, April 15, 2017 04:27 - CONCLUSION: 1. Interval left craniotomy with surgical drain placement. There is new diffuse subdural hematoma involving the left side beneath the craniotomy bone despite surgical drain placement. 2. Small subdural hemorrhage along the right frontal region. This is slightly larger from the prior study. 3. Reduction in size the midline shift. Da Ramirez Jr., MD Cervical Spine CT 04/12/17 0000 Signed Impressions: Service Date/Time: Wednesday, April 12, 2017 17:36 - CONCLUSION: Degenerative spondylosis without any significant compromise to the thecal sac or the exiting nerve roots. Maria Guadalupe Alvarado MD Last [address] 04/12/17 0000 Signed Impressions: Service Date/Time: Wednesday, April 12, 2017 17:36 - CONCLUSION: Bilateral subdural hematomas in addition to parafalcine subdural hematoma, left frontal and temporal lobe intraparenchymal hemorrhages and subfalcine herniation from [id number]. Maria Guadalupe Alvarado MD Cervical Spine CT 04/12/17 0000 Signed Impressions: Service Date/Time: Wednesday, April 12, 2017 17:36 - CONCLUSION: Degenerative spondylosis without any significant compromise to the thecal sac or the exiting nerve roots. Maria Guadalupe Alvarado MD Objective Remarks GENERAL: Elderly gentleman intubated and sedated currently on fentanyl infusion for ventilator synchrony. SKIN: Warm and dry. HEAD: Atraumatic. Normocephalic. KWAME drains with serosanguineous fluid, minimal output EYES: Pupils equal and round. No scleral icterus. No injection or drainage. ENT: No nasal bleeding or discharge. Mucous membranes pink and moist. NECK: Trachea midline. Now orally intubated. CARDIOVASCULAR: Regular rate and rhythm. Harsh systolic murmur. RESPIRATORY: No accessory muscle use. Clear to auscultation. Breath sounds equal bilaterally. GASTROINTESTINAL: Abdomen soft, non-tender, nondistended. Hepatic and splenic margins not palpable. MUSCULOSKELETAL: Extremities without clubbing, cyanosis, or edema. No obvious deformities. Well perfused. NEUROLOGICAL: GCS 3T. Intubated and sedated, withdraws to pain bilateral lower extremities, positive cough,/gag reflex. No movement of upper extremities, spontaneous eye opening. Procedures 04/14-left frontoparietal craniotomy with evacuation of subacute on chronic SDH 04/17-@ 0000 emergent craniotomy with evacuation of acute recurrent left subdural hematoma Date of Insertion: Apr 13, 2017 A/P Assessment and Plan TBI -Subdural hematoma S/P Left frontoparietal craniotomy with evacuation of subacute on chronic SDH POD 5 S/P Emergency revision/evacuation of acute recurrent left subdural hematoma POD 3 -Neurosurgery following. Dr. Odom - Fentanyl gtt for agitation, attempt to wean off and utilize fentanyl only in the setting of patient with hypotension. Titrate off propofol. - Neuro checks per protocol - Daily sedation vacation - Repeat CT head per neurosurgery-stable acute subdural hematoma within frontal regions, bilateral 5 mm subfalcine herniation to the right - Seizure prophylaxis with Keppra -04/17-3% normal saline at 20 cc an hour. Stopping 3% saline on 04/21 due to sodium 157 -Monitor KWAME drainage. Repeat head CT plan for 04/23 with subsequent decision regarding SDH evacuation per Dr. Odom - 04/18 EEG-severe encephalopathy COPD Acute respiratory failure on mechanical ventilation - No exacerbation. No steroids indicated - Continue mechanical ventilation, vent bundle, bronchodilators. Daily C Pap trials. Patient lasted 4 hours on C Pap yesterday. - DuoNeb scheduled and when necessary - Chest x-rays and ABGs when clinically indicated Dementia - Hold Aricept- 2/2 QTc prolongation H/O Hypertension Severe Hypotension Sinus tachycardia -Hold all antihypertensives as patient is requiring Levophed for pressor support Continue Levophed gtt., added low-dose vasopressin on 04/22 to maintain MAP greater than 65 -2 EKG prolonged QT 475, continue close monitoring - 04/16 Echo-severe aortic stenosis EF 50- 55 % Severe left ventricular concentric hypertrophy, aortic mean gradient of 44 - Patient currently on phenylephrine at 50 mics, and tin you to wean as tolerated - Phenylephrine discontinued 03 AM on 04/19 - Repeat quality assurance monitor QTc- will hold Aricept and Zoloft which may be contributory Hematuria Munoz catheter changed per urology recommendations on 04/21. Dr. Woods following. May require CBI. Ordered 1 unit PRBCs on 04/22 for ongoing blood loss from hematuria with drop in hemoglobin and hypotension. Psychosis - Trazodone -on hold in 05/15 QTc prolongation - Zoloft-on hold Uncontrolled Diabetes mellitus - Hold metformin - Insulin sliding scale-high dose dose regimen, increase Levemir to 15 units every 12 hourly on 04/23 Malnutrition - Continue tube feeds Glucerna 1.5 with goal 60cc/hr Septic shock Pneumonia Bacteremia 04/19-blood [id number] cocci 04/14 sets - contaminant 04/20 - Sputum cultures with GNR, follow-up speciation. Empiric zosyn started 04/21. DVT GI prophylaxis - Teds SCDs - No pharmacological DVT prophylaxis due to subdural hematoma - Pepcid BID Further recommendations per neurosurgery. Overall impression: This patient remains critically ill with one or more organ systems which are or may become a threat to life. I have spent in excess of 40 minutes discontinuously in the care and management of this patient. This time is exclusive of procedures, and includes, but is not limited to, evaluation of the patient, review of the medical record, discussions with family, consultants , nursing staff, or respiratory therapy, and documentation in the medical record. Discussed with BALL WORKER at bedside. Roland Figueroa MD Apr 23, 2017 08:47
[2017-04-23] MEDS: PRAVASTATIN SOD 40 MG TAB PO SCH (08:52)
[2017-04-23] MEDS: VALSARTAN 80 MG TAB PO SCH (08:52)
[2017-04-23] MEDS: levETIRAcetam INJ 500 MG in SODIUM CHLORIDE 0.9% INJ 100 ML IV SCH ×2 (08:53→19:57)
[2017-04-23] MEDS: DOCUSATE SODIUM 50 MG/SENNA 8.6 MG TAB PO SCH ×2 (08:53→19:57)
[2017-04-23] MEDS: GABAPENTIN 400 MG CAP PO SCH ×3 (08:53→17:24)
[2017-04-23] MEDS: FAMOTIDINE 20 MG/2 ML VIAL IV PUSH SCH ×2 (08:53→19:57)
[2017-04-23] MEDS: SODIUM CHLORIDE 0.9% FLUSH 10 ML FLUSH IV FLUSH SCH ×2 (08:53→21:00)
[2017-04-23] MEDS: TOLTERODINE TARTRATE 4 MG CAP LA PO SCH (08:53)
[2017-04-23] MEDS: LACTATED RINGER'S 1000 ML INJ 1,000 ML IV SCH (09:00)
[2017-04-23] MEDS: INSULIN DETEMIR 100 UNITS/ML VIAL SQ SCH ×2 (09:00→21:31)
--- NOTE | 2017-04-23 09:59 | HHI.NSPN ---
(Lacho Lacey Betsey JOSEPH) History Chief Complaint: Unable to obtain due to patient's clinical condition. (Lacho Lacey ORTHOTIC/PROSTHETIC CLINICIAN) Interval History 04/12: Mr. Hope is a 71-year-old male who presented to the emergency room today after he fell at home in the presence of his daughter. She states that he lost his balance while trying to put some close on, and fell and struck his head. There was no loss of consciousness. No seizure activity or nausea or emesis reported. The patient has baseline dementia and confusion, but no definite overall change in his mentation after the fall earlier today, according to his daughter, who he lives with. He presently has no complaint of headache. He does have some chronic neck and back pain. 04/13: The patient was examined in the presence of the family today and a more detailed history has been obtained. They indicate chronic progressive dementia to the point that the patient has had to move in with his daughter earlier this year. He cannot care for himself. He is usually quite confused, conversing with only a few words or short sentences and unable to stay on task with conversations. He is usually very active, fidgeting constantly. They state that his mental status today is not significantly changed from his overall baseline. He did go to the emergency room a couple of weeks ago at [facility] due to some pressure sensation or frontal headaches and was diagnosed with sinus congestion. A CT scan of the head was not obtained. He has had no definite falls over the past few weeks up until yesterday. 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 Post-operatively he returned to [facility] for further care and monitoring. 04/15: This morning the patient is obtunded and has no sedation infusing. He does withdraw to noxious stimulation. He does not open his eyes but does have facial grimacing and turns his head to noxious stimulation. ADDENDUM at 1854: Patient was sedated with propofol 50 mcg/kg/min when seen, the pump was not visible at the time. BET. 04/16: When seen the patient is obtunded but does have the propofol drip infusing. Nursing reports that he moves all extremities but does become agitated when the propofol is weaned down. He moves all extremities to noxious stimulation when seen but did not follow any commands. 04/17: The patient remains obtunded and continues to be sedated with a propofol drip. He is now on phenylephrine for blood pressure support. He does not respond to commands and only withdraws the lower extremities to noxious stimulation. He does have some facial grimacing but no eye opening to noxious stimulation. He did go emergently late last night/early this morning for a revision of the left frontoparietal craniotomy for evacuation of a recurrent left hemisphere subdural haematoma. 04/18/17: intubated, propofol just turned off, intermittent movement to ext per nursing, not opening eyes. 04/19/17: nursing reports seizures yesterday, repeat CT head stable residual SDH and 5 mm midline shift. Awaiting EEG. 04/20: Patient with right eye partially opened when seen but Nursing just stimulated patient. He remains intubated and mechanically ventilated. He withdraws to noxious stimuli to the lower extremities but not the upper. He does have facial grimacing to noxious stimulation. Nursing reports that overnight KWAME #1 had 170 mL of yellowish drainage. She also says the patient has been off sedation approximately 36 hours. 04/21: The patient was examined in the presence of the family today and a more detailed history has been obtained. They indicate chronic progressive dementia to the point that the patient has had to move in with his daughter earlier this year. He cannot care for himself. He is usually quite confused, conversing with only a few words or short sentences and unable to stay on task with conversations. He is usually very active, fidgeting constantly. They state that his mental status today is not significantly changed from his overall baseline. He did go to the emergency room a couple of weeks ago at [facility] due to some pressure sensation or frontal headaches and was diagnosed with sinus congestion. A CT scan of the head was not obtained. He has had no definite falls over the past few weeks up until yesterday. 04/23: When seen the patient did have his eyes partially opened and he opened them wider to voice. He was moving the left upper and both lower extremities to varying degrees spontaneously. It was questionable if he moved the left lower to command but did move all extremities to noxious stimulation. (Lacho Lacey) System Review Comments Unable to obtain due to patient's clinical condition. (Lacho Lacey) Exam Results 04/21/17 04/21/17 04/22/17 04/22/17 04/23/17 04/23/17 06:00 18:00 06:00 18:00 06:00 18:00 Intake Total 1605 ml 975 ml 610 ml 2272 ml 750 ml 232 ml Output Total 1275 ml 1900 ml 550 ml 995 ml 1500 ml Balance 330 ml -925 ml 60 ml 1277 ml -750 ml 232 ml IV Total 1000 ml 975 ml 1250 ml 100 ml 232 ml Tube Feeding 515 ml 460 ml 572 ml Packed Cells 400 ml 400 ml Blood Product IV Normal Saline Flush 50 ml 250 ml Other 90 ml 150 ml Output Urine Total 1100 ml 1700 ml 450 ml 925 ml 1500 ml Gastric Drainage Total 0 ml Tube Feeding Residual Discard 0 ml Drainage Total 175 ml 200 ml 100 ml 70 ml # Bowel Movements 1 2 1 2 0 Vital Signs Date Time Temp Pulse Resp B/P (MAP) Pulse Ox O2 Delivery O2 Flow Rate FiO2 04/23/17 08:26 45 04/23/17 08:25 98 45 04/23/17 08:20 100 45 04/23/17 04:00 99.4 85 22 130/44 (72) 98 04/23/17 04:00 30 04/23/17 03:13 100 Ventilator 04/23/17 03:08 100 45 04/23/17 00:00 30 04/23/17 00:00 96 Nasal Cannula 6.00 04/23/17 00:00 99.4 85 22 130/44 (72) 98 04/22/17 23:45 96 Nasal Cannula 6 04/22/17 20:00 30 04/22/17 20:00 99.4 85 22 130/44 (72) 98 04/22/17 19:28 100 Ventilator 04/22/17 19:21 100 45 04/22/17 16:50 99 45 04/22/17 16:00 101.0 108 22 137/54 (81) 98 04/22/17 16:00 108 04/22/17 12:00 97 04/22/17 12:00 96 45 04/22/17 12:00 101.0 97 20 132/61 (84) 99 Automatic Cuff 04/22/17 11:15 45 04/22/17 09:10 90 130/53 04/22/17 09:10 94 130/53 04/22/17 08:45 90 145/54 04/22/17 08:12 45 04/22/17 08:12 97 45 04/22/17 08:05 87 127/52 04/22/17 08:00 100.5 87 29 127/52 (77) 100 Automatic Cuff 04/22/17 08:00 87 04/22/17 08:00 45 04/22/17 04:35 100 60 04/22/17 04:00 102.8 122 20 105/63 (77) 98 110/50 (70) 04/22/17 04:00 30 04/22/17 00:16 97 60 04/22/17 00:00 101.3 97 16 107/58 (74) 93 113/48 (69) 04/22/17 00:00 30 04/21/17 22:30 103 120/50 04/21/17 21:28 92 50 04/21/17 20:00 101.9 128 23 170/60 (96) 93 04/21/17 20:00 30 04/21/17 16:00 30 04/21/17 16:00 99.6 72 16 135/63 (87) 97 04/21/17 16:00 100 140/60 04/21/17 14:41 95 30 04/21/17 12:00 98.3 74 16 124/58 (80) 95 04/21/17 11:30 30 04/21/17 11:14 94 30 04/21/17 08:00 30 04/21/17 08:00 101.2 133 16 172/72 (105) 95 04/21/17 07:38 30 04/21/17 07:32 96 30 04/21/17 06:00 118 04/21/17 04:36 96 30 04/21/17 04:00 30 04/21/17 04:00 112 04/21/17 04:00 99.6 112 18 155/62 (93) 96 04/21/17 02:00 107 04/21/17 01:18 97 30 04/21/17 00:00 30 04/21/17 00:00 94 04/21/17 00:00 99.1 94 16 116/46 (69) 97 04/20/17 23:27 96 Ventilator 30 04/20/17 23:19 96 30 04/20/17 22:00 109 04/20/17 22:00 131/54 04/20/17 21:30 110 83/37 04/20/17 20:00 101.6 124 17 164/76 (105) 96 152/56 (88) 04/20/17 20:00 30 04/20/17 20:00 136 04/20/17 19:45 30 04/20/17 19:40 97 30 04/20/17 18:30 30 04/20/17 18:00 122 04/20/17 17:55 100 100 04/20/17 16:00 99.3 112 20 163/65 (97) 97 04/20/17 16:00 30 04/20/17 16:00 112 04/20/17 15:10 30 04/20/17 15:10 97 30 04/20/17 14:00 108 04/20/17 12:00 101 04/20/17 12:00 30 04/20/17 12:00 99.1 101 27 124/51 (75) 96 04/20/17 11:56 30 04/20/17 11:54 30 04/20/17 11:22 97 30 04/20/17 10:00 122 (Lacho Lacey) Physical Examination GENERAL: Partial eye opening spontaneously, no sedation, moving LUE & BLE to varying degrees spontaneously. HEENT: Left craniotomy surgical incision well approximated with gilles, KWAME drain to bulb suction w/dark red serous-appearing drainage noted. PERRLA 3mm reactive. Orally intubated. OGT. MUSCULOSKELETAL: No clubbing or deformity evident. NEUROLOGICAL: Partial eye opening spontaneously, but did open wider to voice. Nonverbal, intubated. Facial grimacing to noxious stimulation. Movement of LLE possibly to command although patient has been spontaneously moving it as well as the LUE & RLE. Moved all extremities to noxious stimulation. (Lacho Lacey) Lab, Micro, Other Results Recent Impressions Chest X-Ray 04/23/17 0000 Signed Impressions: Service Date/Time: April 03:32 - CONCLUSION: 1. Satisfactory position of endotracheal tube as above. 2. Perihilar pulmonary edema unchanged Eamon Azul MD Chest X-Ray 04/22/17 0600 Signed Impressions: Service Date/Time: Saturday, April 22, 2017 04:52 - CONCLUSION: 1. Patchy alveolar disease characteristic of edema or pneumonia. There has been no significant change when compared to the prior exam. Eamon Azul MD Laboratory Tests Test 04/20/17 12:00 04/20/17 18:50 04/21/17 04:15 04/21/17 12:35 Serum Osmolality 329 MOSM/KG 331 MOSM/KG 337 MOSM/KG Sodium Level 152 MEQ/L 155 MEQ/L 157 MEQ/L Blood Urea Nitrogen 23 MG/DL 26 MG/DL Creatinine 0.82 MG/DL 0.95 MG/DL Random Glucose 270 MG/DL 321 MG/DL Calcium Level 8.9 MG/DL 8.8 MG/DL Potassium Level 3.5 MEQ/L 3.5 MEQ/L Chloride Level 119 MEQ/L 121 MEQ/L Carbon Dioxide Level 26.5 MEQ/L 27.4 MEQ/L Anion Gap 10 MEQ/L 9 MEQ/L Estimat Glomerular Filtration Rate 93 ML/MIN 78 ML/MIN Test 04/21/17 18:00 04/22/17 06:00 04/22/17 06:10 04/22/17 13:22 White Blood Count 16.2 TH/MM3 20.1 TH/MM3 Red Blood Count 2.65 MIL/MM3 2.60 MIL/MM3 Hemoglobin 8.0 GM/DL 7.5 GM/DL Hematocrit 23.8 % 23.3 % Mean Corpuscular Volume 89.7 FL 89.6 FL Mean Corpuscular Hemoglobin 30.1 PG 29.0 PG Mean Corpuscular Hemoglobin Concent 33.5 % 32.3 % Red Cell Distribution Width 15.1 % 14.7 % Platelet Count 492 TH/MM3 425 TH/MM3 Mean Platelet Volume 7.3 FL 7.4 FL Neutrophils (%) (Auto) 85.7 % 92.9 % Lymphocytes (%) (Auto) 4.7 % 1.9 % Monocytes (%) (Auto) 9.2 % 4.9 % Eosinophils (%) (Auto) 0.1 % 0.0 % Basophils (%) (Auto) 0.3 % 0.3 % Neutrophils # (Auto) 13.9 TH/MM3 18.7 TH/MM3 Lymphocytes # (Auto) 0.8 TH/MM3 0.4 TH/MM3 Monocytes # (Auto) 1.5 TH/MM3 1.0 TH/MM3 Eosinophils # (Auto) 0.0 TH/MM3 0.0 TH/MM3 Basophils # (Auto) 0.0 TH/MM3 0.1 TH/MM3 CBC Comment DIFF FINAL DIFF FINAL Differential Comment Blood Urea Nitrogen 41 MG/DL Creatinine 2.24 MG/DL Random Glucose 242 MG/DL Total Protein 5.9 GM/DL Albumin 2.0 GM/DL Calcium Level 8.2 MG/DL Alkaline Phosphatase 53 U/L Aspartate Amino Transf (AST/SGOT) 13 U/L Alanine Aminotransferase (ALT/SGPT) 15 U/L Total Bilirubin 0.5 MG/DL Sodium Level 160 MEQ/L Potassium Level 4.2 MEQ/L Chloride Level 126 MEQ/L Carbon Dioxide Level 25.1 MEQ/L Anion Gap 9 MEQ/L Estimat Glomerular Filtration Rate 29 ML/MIN Stool C. difficile Toxin (PCR) NEGATIVE Stl C. difficile Toxin Epiderm 027 PRESUMPTIVE NEGATIVE Test 04/22/17 16:00 04/23/17 00:30 Hemoglobin 7.3 GM/DL 8.3 GM/DL Hematocrit 21.4 % 24.8 % (Lacho Lacey) Medical Decision Making Impression and Plan Impression: 1. 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 Dementia 4. Cardiac murmur Patient is more awake, facial grimacing & withdraws extremities to noxious stimulation. Prognosis guarded. Reviewed labs for today. Interval improvement in haemoglobin. Blood cultures no growth x1 day. CT brain demonstrated evolving bifrontal subdural haematomas & improving subfalcine herniation. Bilateral parietal subdural haematomas more prominent which may be positional. EEG consistent w/severe encephalopathy. KWAME drain output for the past 24 hrs is 70 mL for #2 as of this morning. KWAME #1 was removed yesterday. POD #9 () s/p: Left frontoparietal craniotomy for evacuation of subacute on chronic subdural hematoma Postoperative Diagnosis: (1) Subdural hematoma, chronic (2) Acute subdural hematoma 1. Left hemisphere subacute on chronic subdural hematoma 2. Acute right frontal subdural hematoma POD #6 () s/p: Revision left frontoparietal craniotomy evacuation of recurrent left hemisphere subdural hematoma Postoperative Diagnosis: (1) Acute subdural hematoma Recurrent left hemisphere subdural hematoma Plan: Primary management per [employer]. Neuro checks. Repeat CT brain for any decline in neuro status. Monitor KWAME drain output. Mechanical DVT prophylaxis. Hold pharmacologic DVT prophylaxis. Stress ulcer prophylaxis. CT brain today. Possible return to OR on versus further conservative treatment pending follow-up CT brain results. (Lacho Lacey) Attending Statement The exam, history, and the medical decision-making described in the above note were completed with the assistance of the mid-level provider. I reviewed and agree with the findings presented. I attest that I had a [id number] encounter with the patient on the same day, and personally performed and documented my assessment and findings in the medical record. On my examination of 04/23/2017, the patient has moderate eye opening to voice and sternal rub. Mild disconjugate extraocular movements. He was his upper extremities and right lower extremity, not definitely to command. Incision sites are dry and intact Continues to have moderate drainage out the residual drain. Follow-up CT scan from 04/23/2017 was reviewed and has revealed some further improvement in the left and right frontal subdural hematomas. Mass effect is diminishing. Gradual improvement. Continue draining the subdural clot at this point. (Sylvester Odom MD) Lacho Lacey Apr 23, 2017 09:59 Sylvester Odom MD Apr 24, 2017 21:50
--- NOTE | 2017-04-23 11:14 | RADRPT ---
EXAM DATE/TIME: 04/23/2017 11:04 [facility] COMPARISON: CT BRAIN W/O CONTRAST, April 20, 2017, 17:38. INDICATIONS : Evaluate subdural RADIATION DOSE: 40.63 CTDIvol (mGy) MEDICAL HISTORY : Diabetes mellitus type 1. Hypertension. Cardiovascular diseaseProstate cancer SURGICAL HISTORY : Craniotomy. ENCOUNTER: Subsequent ACUITY: 1 week PAIN SCALE: Non-responsive LOCATION: cranial TECHNIQUE: Multiple contiguous axial images were obtained of the head. Using automated exposure control and adj ustment of the mA and/or kV according to patient size, radiation dose was kept as low as reasonably a chievable to obtain optimal diagnostic quality images. DICOM format image data is available electro nically for review and comparison. FINDINGS: The study is degraded by [id number] motion artifact despite repeat imaging. The left subdu ral drainage catheter remains in place and the patient is status post left frontal and parietal crani otomy. There has been a mild interval decrease in the high density left subdural collection compared to the prior study. Residual remains over the frontal and parietal convexities. The low density left subdural collection is not significantly changed. There is no new hemorrhage, mass effect or hydrocep halus. The ventricular system remains within normal limits. The visualized portion the posterior sena a and brainstem appear unremarkable. CONCLUSION: 1. Mild interval improvement in the high density left subdural hematoma. The drainage catheter remain ing in place. 2. The low density right subdural collection is not significantly changed. 3. Suboptimal study secondary to motion artifact. Simon Haley MD on April 23, 2017 at 11:07 Board Certified Radiologist. This report was verified electronically.
[2017-04-23 11:15] LABS: BICARBONATE 26.3 MEQ/L (21.0-32.0); CALCIUM 8.3 MG/DL (8.5-10.1); CREATININE 1.06 MG/DL (0.60-1.30)
[2017-04-23] MEDS ORDERED: ICU - MAGNESIUM SULFATE 2 GM/NS 100 ML IV PRN ×2 (12:00)
[2017-04-23] MEDS ORDERED: ICU - POTASSIUM PHOSPHATE MONOBASIC 500 MG TAB PO PRN (12:00)
[2017-04-23] MEDS ORDERED: ICU - SODIUM PHOSPHATE 30 MMOL/NS 250 ML IV PRN ×2 (12:00)
[2017-04-23] MEDS ORDERED: ICU - D/C ICU ELECTROLYTE ORDERS PRN (12:00)
[2017-04-23] MEDS ORDERED: ICU - POTASSIUM CHLORIDE/AQUEOUS SOLN 20 MEQ/100 ML IVPB IV PRN (12:00)
[2017-04-23] MEDS ORDERED: ICU - POTASSIUM PHOSPHATE 30 MMOL/NS 250 ML IV PRN ×2 (12:00)
[2017-04-23] MEDS ORDERED: ICU - MAGNESIUM OXIDE 400 MG TAB PO PRN (12:00)
[2017-04-23] MEDS ORDERED: ICU - MAGNESIUM SULFATE 4 GM/NS 100 ML IV PRN ×2 (12:00)
[2017-04-23] MEDS ORDERED: ICU - CALL ORDERING PHYSICIAN PRN (12:00)
[2017-04-23] MEDS: ICU - POTASSIUM CHLORIDE/AQUEOUS SOLN 40 MEQ/100 ML IVPB IV PRN (12:14)
[2017-04-23] MEDS: POTASSIUM CHLORIDE 25 MEQ EFFERVESCENT TAB PO PRN (12:14)
[2017-04-24] VITALS (16 sets, daily range): BP systolic 117–150; BP diastolic 44–60; PULSE 85–102; RESP 16–34; TEMP 98.9–99.7; O2SAT 96–100
[2017-04-24 03:34] LABS: AUTOMATED NEUTROPHIL # 12.5 TH/MM3 (1.8-7.7); BASOPHIL % 0.1 % (0.0-2.0); EOSINOPHIL % 0.2 % (0.0-4.0); HEMATOCRIT 24.7 % (39.0-51.0); HEMOGLOBIN 7.9 GM/DL (13.0-17.0); LYMPH % 3.6 % (9.0-44.0); LYMPHOCYTE # 0.5 TH/MM3 (1.0-4.8); MEAN CELL VOLUME 88.7 FL (80.0-100.0); MEAN CORPUSCULAR HEMOGLOBIN 28.4 PG (27.0-34.0); MEAN PLATELET VOLUME 8.2 FL (7.0-11.0); MONO % 2.5 % (0.0-8.0); MONOCYTE # 0.3 TH/MM3 (0-0.9); NEUT % 93.6 % (16.0-70.0); PLATELET COUNT 274 TH/MM3 (150-450); RED BLOOD COUNT 2.78 MIL/MM3 (4.50-5.90); RED CELL DISTRIBUTION WIDTH 16.2 % (11.6-17.2); WHITE BLOOD COUNT 13.4 TH/MM3 (4.0-11.0)
[2017-04-24] MEDS: CHLORHEXIDINE GLUCONATE 2 % 1 PACK (2 CLOTHS) TOP SCH (03:56)
[2017-04-24 04:45] LABS: BICARBONATE 28.5 MEQ/L (21.0-32.0); CALCIUM 8.1 MG/DL (8.5-10.1); CREATININE 1.15 MG/DL (0.60-1.30)
[2017-04-24] MEDS: LACTATED RINGER'S 1000 ML INJ 1,000 ML IV SCH (04:59)
[2017-04-24] MEDS: PIPERACIL-TAZO 4.5 GM PREMIX 100 ML IV SCH ×4 (04:59→23:39)
[2017-04-24] MEDS: ICU - POTASSIUM CHLORIDE/AQUEOUS SOLN 40 MEQ/100 ML IVPB IV PRN (04:59)
[2017-04-24] MEDS: INSULIN ASPART SUPPLEMENTAL SCALE SQ SCH ×3 (05:16→18:00)
[2017-04-24] MEDS: PRAVASTATIN SOD 40 MG TAB PO SCH (08:21)
[2017-04-24] MEDS: levETIRAcetam INJ 500 MG in SODIUM CHLORIDE 0.9% INJ 100 ML IV SCH ×2 (08:21→22:15)
[2017-04-24] MEDS: VALSARTAN 80 MG TAB PO SCH (08:21)
[2017-04-24] MEDS: SODIUM CHLORIDE 0.9% FLUSH 10 ML FLUSH IV FLUSH SCH ×2 (08:21→21:00)
[2017-04-24] MEDS: GABAPENTIN 400 MG CAP PO SCH ×3 (08:21→18:00)
[2017-04-24] MEDS: TOLTERODINE TARTRATE 4 MG CAP LA PO SCH (08:21)
[2017-04-24] MEDS: FAMOTIDINE 20 MG/2 ML VIAL IV PUSH SCH ×2 (08:21→22:15)
[2017-04-24] MEDS: DOCUSATE SODIUM 50 MG/SENNA 8.6 MG TAB PO SCH ×2 (08:22→19:39)
[2017-04-24] MEDS: INSULIN DETEMIR 100 UNITS/ML VIAL SQ SCH ×2 (08:26→22:15)
--- NOTE | 2017-04-24 09:11 | HHI.NSPN ---
(Lacho Lacey Betsey JOSEPH) History Chief Complaint: Unable to obtain due to patient's clinical condition. (Lacho Lacey [employer]AUR[employer] H[employer]PITALITY MANAGER) Interval History 04/12: Mr. Hope is a 71-year-old male who presented to the emergency room today after he fell at home in the presence of his daughter. She states that he lost his balance while trying to put some close on, and fell and struck his head. There was no loss of consciousness. No seizure activity or nausea or emesis reported. The patient has baseline dementia and confusion, but no definite overall change in his mentation after the fall earlier today, according to his daughter, who he lives with. He presently has no complaint of headache. He does have some chronic neck and back pain. 04/13: The patient was examined in the presence of the family today and a more detailed history has been obtained. They indicate chronic progressive dementia to the point that the patient has had to move in with his daughter earlier this year. He cannot care for himself. He is usually quite confused, conversing with only a few words or short sentences and unable to stay on task with conversations. He is usually very active, fidgeting constantly. They state that his mental status today is not significantly changed from his overall baseline. He did go to the emergency room a couple of weeks ago at [facility] due to some pressure sensation or frontal headaches and was diagnosed with sinus congestion. A CT scan of the head was not obtained. He has had no definite falls over the past few weeks up until yesterday. 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 Post-operatively he returned to [facility] for further care and monitoring. 04/15: This morning the patient is obtunded and has no sedation infusing. He does withdraw to noxious stimulation. He does not open his eyes but does have facial grimacing and turns his head to noxious stimulation. ADDENDUM at 1854: Patient was sedated with propofol 50 mcg/kg/min when seen, the pump was not visible at the time. BET. 04/16: When seen the patient is obtunded but does have the propofol drip infusing. Nursing reports that he moves all extremities but does become agitated when the propofol is weaned down. He moves all extremities to noxious stimulation when seen but did not follow any commands. 04/17: The patient remains obtunded and continues to be sedated with a propofol drip. He is now on phenylephrine for blood pressure support. He does not respond to commands and only withdraws the lower extremities to noxious stimulation. He does have some facial grimacing but no eye opening to noxious stimulation. He did go emergently late last night/early this morning for a revision of the left frontoparietal craniotomy for evacuation of a recurrent left hemisphere subdural haematoma. 04/18/17: intubated, propofol just turned off, intermittent movement to ext per nursing, not opening eyes. 04/19/17: nursing reports seizures yesterday, repeat CT head stable residual SDH and 5 mm midline shift. Awaiting EEG. 04/20: Patient with right eye partially opened when seen but Nursing just stimulated patient. He remains intubated and mechanically ventilated. He withdraws to noxious stimuli to the lower extremities but not the upper. He does have facial grimacing to noxious stimulation. Nursing reports that overnight KWAME #1 had 170 mL of yellowish drainage. She also says the patient has been off sedation approximately 36 hours. 04/21: The patient was examined in the presence of the family today and a more detailed history has been obtained. They indicate chronic progressive dementia to the point that the patient has had to move in with his daughter earlier this year. He cannot care for himself. He is usually quite confused, conversing with only a few words or short sentences and unable to stay on task with conversations. He is usually very active, fidgeting constantly. They state that his mental status today is not significantly changed from his overall baseline. He did go to the emergency room a couple of weeks ago at [facility] due to some pressure sensation or frontal headaches and was diagnosed with sinus congestion. A CT scan of the head was not obtained. He has had no definite falls over the past few weeks up until yesterday. 04/23: When seen the patient did have his eyes partially opened and he opened them wider to voice. He was moving the left upper and both lower extremities to varying degrees spontaneously. It was questionable if he moved the left lower to command but did move all extremities to noxious stimulation. 04/24: It is difficult to say if the patient was asleep when seen or not. It did appear he had his eyes partially open since Nursing was in the room. He did open them briefly to my voice. He spontaneously moved the left hand some and gripped this practitioner's hand. He moved the lower extremities to command. There was no noted movement of the right upper to noxious stimulation but he did have facial grimacing. (Lacho Lacey) Exam Results 04/22/17 04/22/17 04/23/17 04/23/17 04/24/17 04/24/17 06:00 18:00 06:00 18:00 06:00 18:00 Intake Total 610 ml 2272 ml 750 ml 1270 ml 1816 ml Output Total 550 ml 995 ml 1500 ml 1545 ml 2700.0 ml Balance 60 ml 1277 ml -750 ml -275 ml -884.0 ml IV Total 1250 ml 100 ml 532 ml 1405 ml Tube Feeding 460 ml 572 ml 738 ml 411 ml Packed Cells 400 ml 400 ml Blood Product IV Normal Saline Flush 50 ml 250 ml Other 150 ml Output Urine Total 450 ml 925 ml 1500 ml 1450 ml 2600 ml Gastric Drainage Total 0 ml 0 ml Tube Feeding Residual Discard 0 ml 0 ml 0 ml Drainage Total 100 ml 70 ml 95 ml 100 ml # Bowel Movements 1 2 0 1 3 Vital Signs Date Time Temp Pulse Resp B/P (MAP) Pulse Ox O2 Delivery O2 Flow Rate FiO2 04/24/17 08:20 40 04/24/17 08:00 89 04/24/17 08:00 99.7 89 34 144/60 (88) 99 04/24/17 08:00 40 04/24/17 07:54 40 04/24/17 07:53 96 40 04/24/17 07:50 96 40 04/24/17 06:00 86 04/24/17 04:02 97 40 04/24/17 04:00 45 04/24/17 04:00 92 04/24/17 04:00 99.4 92 16 126/56 (79) 98 04/24/17 02:00 96 04/24/17 01:00 99 40 04/24/17 00:00 92 04/24/17 00:00 98.9 92 16 124/54 (77) 98 04/24/17 00:00 45 04/23/17 22:00 88 04/23/17 20:34 45 04/23/17 20:34 100 40 04/23/17 20:00 99.1 94 14 120/54 (76) 100 04/23/17 20:00 45 04/23/17 20:00 96 04/23/17 16:00 107 04/23/17 16:00 99.2 107 14 120/55 (76) 99 04/23/17 12:00 93 04/23/17 12:00 99.2 93 15 132/55 (80) 99 04/23/17 11:00 100 04/23/17 08:26 45 04/23/17 08:25 98 45 04/23/17 08:20 100 45 04/23/17 08:00 98.6 87 16 140/61 (87) 100 04/23/17 08:00 87 04/23/17 08:00 45 04/23/17 04:00 99.4 85 22 130/44 (72) 98 04/23/17 04:00 30 04/23/17 03:13 100 Ventilator 04/23/17 03:08 100 45 04/23/17 00:00 30 04/23/17 00:00 96 Nasal Cannula 6.00 04/23/17 00:00 99.4 85 22 130/44 (72) 98 04/22/17 23:45 96 Nasal Cannula 6 04/22/17 20:00 30 04/22/17 20:00 99.4 85 22 130/44 (72) 98 04/22/17 19:28 100 Ventilator 04/22/17 19:21 100 45 04/22/17 16:50 99 45 04/22/17 16:00 101.0 108 22 137/54 (81) 98 04/22/17 16:00 108 04/22/17 12:00 97 04/22/17 12:00 96 45 04/22/17 12:00 101.0 97 20 132/61 (84) 99 Automatic Cuff 04/22/17 11:15 45 04/22/17 09:10 90 130/53 04/22/17 09:10 94 130/53 04/22/17 08:45 90 145/54 04/22/17 08:12 45 04/22/17 08:12 97 45 04/22/17 08:05 87 127/52 04/22/17 08:00 100.5 87 29 127/52 (77) 100 Automatic Cuff 04/22/17 08:00 87 04/22/17 08:00 45 04/22/17 04:35 100 60 04/22/17 04:00 102.8 122 20 105/63 (77) 98 110/50 (70) 04/22/17 04:00 30 04/22/17 00:16 97 60 04/22/17 00:00 101.3 97 16 107/58 (74) 93 113/48 (69) 04/22/17 00:00 30 04/21/17 22:30 103 120/50 04/21/17 21:28 92 50 04/21/17 20:00 101.9 128 23 170/60 (96) 93 04/21/17 20:00 30 04/21/17 16:00 30 04/21/17 16:00 99.6 72 16 135/63 (87) 97 04/21/17 16:00 100 140/60 04/21/17 14:41 95 30 04/21/17 12:00 98.3 74 16 124/58 (80) 95 04/21/17 11:30 30 04/21/17 11:14 94 30 (Lacho Lacey) Physical Examination GENERAL: Probable partial eye opening initially but did open briefly to voice, no sedation, no apparent distress. HEENT: Left craniotomy surgical incision well approximated with gilles, KWAME drain to bulb suction w/dark red serous-appearing drainage noted. PERRLA 3mm reactive. Orally intubated. OGT. MUSCULOSKELETAL: No clubbing or deformity evident. NEUROLOGICAL: Probable partial eye opening initially but did open to voice. Nonverbal, intubated. Facial grimacing to noxious stimulation. Spontaneous movement of LUE. Did appear to head of conservation with left hand to command. When asked to move left foot/lower extremity he did but at the same time he also did the right lower. With noxious stimulation to the lower extremities he moved both at the same time. No movement of the RUE to noxious stimulation but he did have facial grimacing. (Lacho Lacey) Lab, Micro, Other Results Recent Impressions Head CT 04/23/17 0000 Signed Impressions: Service Date/Time: April 11:04 - CONCLUSION: 1. Mild interval improvement in the high density left subdural hematoma. The drainage catheter remaining in place. 2. The low density right subdural collection is not significantly changed. 3. Suboptimal study secondary to motion artifact. Simon Haley MD Chest X-Ray 04/23/17 0000 Signed Impressions: Service Date/Time: April 03:32 - CONCLUSION: 1. Satisfactory position of endotracheal tube as above. 2. Perihilar pulmonary edema unchanged Eamon Azul MD Chest X-Ray 04/22/17 0600 Signed Impressions: Service Date/Time: Saturday, April 22, 2017 04:52 - CONCLUSION: 1. Patchy alveolar disease characteristic of edema or pneumonia. There has been no significant change when compared to the prior exam. Eamon Azul MD Laboratory Tests Test 04/21/17 12:35 04/21/17 18:00 04/22/17 06:00 04/22/17 06:10 Blood Urea Nitrogen 26 MG/DL 41 MG/DL Creatinine 0.95 MG/DL 2.24 MG/DL Random Glucose 321 MG/DL 242 MG/DL Calcium Level 8.8 MG/DL 8.2 MG/DL Sodium Level 157 MEQ/L 160 MEQ/L Potassium Level 3.5 MEQ/L 4.2 MEQ/L Chloride Level 121 MEQ/L 126 MEQ/L Carbon Dioxide Level 27.4 MEQ/L 25.1 MEQ/L Anion Gap 9 MEQ/L 9 MEQ/L Estimat Glomerular Filtration Rate 78 ML/MIN 29 ML/MIN White Blood Count 16.2 TH/MM3 20.1 TH/MM3 Red Blood Count 2.65 MIL/MM3 2.60 MIL/MM3 Hemoglobin 8.0 GM/DL 7.5 GM/DL Hematocrit 23.8 % 23.3 % Mean Corpuscular Volume 89.7 FL 89.6 FL Mean Corpuscular Hemoglobin 30.1 PG 29.0 PG Mean Corpuscular Hemoglobin Concent 33.5 % 32.3 % Red Cell Distribution Width 15.1 % 14.7 % Platelet Count 492 TH/MM3 425 TH/MM3 Mean Platelet Volume 7.3 FL 7.4 FL Neutrophils (%) (Auto) 85.7 % 92.9 % Lymphocytes (%) (Auto) 4.7 % 1.9 % Monocytes (%) (Auto) 9.2 % 4.9 % Eosinophils (%) (Auto) 0.1 % 0.0 % Basophils (%) (Auto) 0.3 % 0.3 % Neutrophils # (Auto) 13.9 TH/MM3 18.7 TH/MM3 Lymphocytes # (Auto) 0.8 TH/MM3 0.4 TH/MM3 Monocytes # (Auto) 1.5 TH/MM3 1.0 TH/MM3 Eosinophils # (Auto) 0.0 TH/MM3 0.0 TH/MM3 Basophils # (Auto) 0.0 TH/MM3 0.1 TH/MM3 CBC Comment DIFF FINAL DIFF FINAL Differential Comment Total Protein 5.9 GM/DL Albumin 2.0 GM/DL Alkaline Phosphatase 53 U/L Aspartate Amino Transf (AST/SGOT) 13 U/L Alanine Aminotransferase (ALT/SGPT) 15 U/L Total Bilirubin 0.5 MG/DL Test 04/22/17 13:22 04/22/17 16:00 04/23/17 00:30 04/23/17 10:14 Stool C. difficile Toxin (PCR) NEGATIVE Stl C. difficile Toxin Epiderm 027 PRESUMPTIVE NEGATIVE Hemoglobin 7.3 GM/DL 8.3 GM/DL Hematocrit 21.4 % 24.8 % Blood Urea Nitrogen 36 MG/DL Creatinine 1.06 MG/DL Random Glucose 120 MG/DL Calcium Level 8.3 MG/DL Sodium Level 165 MEQ/L Potassium Level 2.8 MEQ/L Chloride Level 130 MEQ/L Carbon Dioxide Level 26.3 MEQ/L Anion Gap 9 MEQ/L Estimat Glomerular Filtration Rate 69 ML/MIN Test 04/23/17 17:55 04/24/17 03:17 Potassium Level 3.5 MEQ/L 3.5 MEQ/L White Blood Count 13.4 TH/MM3 Red Blood Count 2.78 MIL/MM3 Hemoglobin 7.9 GM/DL Hematocrit 24.7 % Mean Corpuscular Volume 88.7 FL Mean Corpuscular Hemoglobin 28.4 PG Mean Corpuscular Hemoglobin Concent 32.0 % Red Cell Distribution Width 16.2 % Platelet Count 274 TH/MM3 Mean Platelet Volume 8.2 FL Neutrophils (%) (Auto) 93.6 % Lymphocytes (%) (Auto) 3.6 % Monocytes (%) (Auto) 2.5 % Eosinophils (%) (Auto) 0.2 % Basophils (%) (Auto) 0.1 % Neutrophils # (Auto) 12.5 TH/MM3 Lymphocytes # (Auto) 0.5 TH/MM3 Monocytes # (Auto) 0.3 TH/MM3 Eosinophils # (Auto) 0.0 TH/MM3 Basophils # (Auto) 0.0 TH/MM3 CBC Comment DIFF FINAL Differential Comment Blood Urea Nitrogen 35 MG/DL Creatinine 1.15 MG/DL Random Glucose 213 MG/DL Calcium Level 8.1 MG/DL Sodium Level 167 MEQ/L Chloride Level 133 MEQ/L Carbon Dioxide Level 28.5 MEQ/L Anion Gap 6 MEQ/L Estimat Glomerular Filtration Rate 63 ML/MIN (Lacho Lacey) Medical Decision Making Impression and Plan Impression: 1. 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 Dementia 4. Cardiac murmur Patient drowsy this morning. Did appear to move LUE & BLE to command. Prognosis guarded. Reviewed labs for today. Interval improvement in leukocytosis. Slight decrease in haemoglobin. Sodium is 167. Interval decrease in renal function. Blood cultures no growth x2 day. CT brain demonstrated mild improvement in the left subdural haematoma collection but no significant change to the right. EEG consistent w/severe encephalopathy. KWAME drain output for the past 24 hrs is 195 mL for #2 as of this morning. KWAME #1 was removed . POD #10 () s/p: Left frontoparietal craniotomy for evacuation of subacute on chronic subdural hematoma Postoperative Diagnosis: (1) Subdural hematoma, chronic (2) Acute subdural hematoma 1. Left hemisphere subacute on chronic subdural hematoma 2. Acute right frontal subdural hematoma POD #7 () s/p: Revision left frontoparietal craniotomy evacuation of recurrent left hemisphere subdural hematoma Postoperative Diagnosis: (1) Acute subdural hematoma Recurrent left hemisphere subdural hematoma Plan: Primary management per Nursing Informatics Specialist. Neuro checks. Repeat CT brain for any decline in neuro status. Monitor KWAME drain output. Mechanical DVT prophylaxis. Hold pharmacologic DVT prophylaxis. Stress ulcer prophylaxis. (Lacho Lacey) Attending Statement The exam, history, and the medical decision-making described in the above note were completed with the assistance of the mid-level provider. I reviewed and agree with the findings presented. I attest that I had a [id number] encounter with the patient on the same day, and personally performed and documented my assessment and findings in the medical record. Patient remains a little more alert in the past couple days, some spontaneous eye opening. Questionably moves his upper extremity to command. Increased drain output today. Still with a moderate amount of blood. Plan to continue drainage today. Possible removal of the drain over the weekend if drainage diminishes or blood clears. (Sylvester Odom MD) Lacho Lacey Apr 24, 2017 09:11 Sylvester Odom MD Apr 24, 2017 21:51
[2017-04-24] MEDS: VASOPRESSIN INJ 40 UNITS in SODIUM CHLORIDE 0.9% INJ 98 ML IV SCH (12:00)
--- NOTE | 2017-04-24 16:10 | HHI.PR ---
Subjective Patient symptoms today Nonverbal Objective Vital Signs Vital Signs Date Time Temp Pulse Resp B/P (MAP) Pulse Ox O2 Delivery O2 Flow Rate FiO2 04/24/17 12:26 98 40 04/24/17 12:25 40 04/24/17 12:00 98.9 97 33 135/57 (83) 98 04/24/17 12:00 97 04/24/17 08:20 40 04/24/17 08:00 89 04/24/17 08:00 99.7 89 34 144/60 (88) 99 04/24/17 08:00 40 04/24/17 07:54 40 04/24/17 07:53 96 40 04/24/17 07:50 96 40 04/24/17 06:00 86 04/24/17 04:02 97 40 04/24/17 04:00 45 04/24/17 04:00 92 04/24/17 04:00 99.4 92 16 126/56 (79) 98 04/24/17 02:00 96 04/24/17 01:00 99 40 04/24/17 00:00 92 04/24/17 00:00 98.9 92 16 124/54 (77) 98 04/24/17 00:00 45 04/23/17 22:00 88 04/23/17 20:34 45 04/23/17 20:34 100 40 04/23/17 20:00 99.1 94 14 120/54 (76) 100 04/23/17 20:00 45 04/23/17 20:00 96 Intake & Output 04/24/17 04/24/17 07:00 19:00 Intake Total 1816 ml 300 ml Output Total 2700.0 ml 0 ml Balance -884.0 ml 300 ml IV Total 1405 ml 300 ml Tube Feeding 411 ml Output Urine Total 2600 ml Tube Feeding Residual Discard 0 ml 0 ml Drainage Total 100 ml # Bowel Movements 3 Result Diagram: 04/24/17 0317 04/24/17 1335 Objective Remarks CBI running with pink output Bladder markedly distended CBI catheter changed to a 20 Upper Sor[place] and manual irrigation performed with evacuation of several small clots Medications and IVs Current Medications Medications (Trade) Dose Ordered Sig/Ashli Route Start Time Stop Time Status Last Admin (Keppra) 500 mg Q12HR PO 04/12/17 21:00 Future Hold 04/14/17 09:56 (Aricept) 10 mg HS PO 04/12/17 21:00 Future Hold 04/17/17 21:48 (Neurontin) 400 mg TID PO 04/13/17 09:00 04/24/17 12:11 (Pravachol) 40 mg DAILY PO 04/13/17 09:00 04/24/17 08:21 (Zoloft) 150 mg DAILY PO 04/13/17 09:00 Future Hold 04/18/17 09:11 (Diovan) 80 mg DAILY PO 04/13/17 09:00 04/24/17 08:21 (Desyrel) 100 mg HS PO 04/12/17 21:00 Future Hold 04/13/17 20:18 (NS Flush) 2 ml UNSCH PRN IV FLUSH 04/12/17 20:30 (NS Flush) 2 ml BID IV FLUSH 04/12/17 21:00 04/24/17 08:21 (Tylenol) 650 mg Q6H PRN PO 04/12/17 20:30 04/22/17 21:00 (Morphine Inj) 2 mg Q2H PRN IV 04/12/17 21:00 04/16/17 03:47 (Zofran Inj) 4 mg Q6H PRN IV PUSH 04/12/17 20:30 04/14/17 03:35 (Duoneb Neb) 1 ampule Q2HR NEB PRN INH 04/12/17 20:30 Miscellaneous Information 1 Q361D XX 04/12/17 20:30 (Chlorhexidine 2% Cloth) Taper DAILY@04 TOP 04/13/17 04:00 04/09/18 03:59 (Chlorhexidine 2% Cloth) 3 pack UNSCH PRN TOP 04/12/17 20:30 (Julia-Colace) 1 tab BID PO 04/12/17 21:00 04/22/17 09:00 (Milk Of Magnesia Liq) 30 ml Q12H PRN PO 04/12/17 20:30 (Senokot) 17.2 mg Q12H PRN PO 04/12/17 20:30 (Dulcolax Supp) 10 mg DAILY PRN RECTAL 04/12/17 20:30 (Lactulose Liq) 30 ml DAILY PRN PO 04/12/17 20:30 Levetriacetam 500 mg/Sodium Chloride 105 ml @ 420 mls/hr Q12HR IV 04/14/17 11:00 04/24/17 08:21 (Apresoline Inj) 20 mg Q4H PRN IV PUSH 04/14/17 12:30 04/14/17 12:56 (Brethine Inj) 1 mg UNSCH PRN SQ 04/14/17 21:15 Fentanyl Citrate 250 ml @ 5 mls/hr TITRATE PRN IV 04/16/17 08:00 04/21/17 16:58 Phenylephrine HCl 40 mg/Sodium Chloride 500 ml @ 30 mls/hr TITRATE PRN IV 04/16/17 22:30 04/18/17 03:00 (Lopressor Inj) 2.5 mg Q6H PRN IV PUSH 04/18/17 09:15 Future Hold 04/20/17 13:11 (Lopressor) 12.5 mg Q12HR PO 04/19/17 09:00 Future Hold 04/21/17 22:05 (Pill Splitter) 1 ea UNSCH PRN OTHER 04/19/17 09:00 (Sodium Chloride) 2 gm DAILY NG 04/19/17 14:00 Future Hold Norepinephrine Bitartrate 4 mg/ Sodium Chloride 250 ml @ 7.5 mls/hr TITRATE PRN IV 04/21/17 02:45 04/21/17 22:30 Dexmedetomidine HCl 200 mcg/ Sodium Chloride 52 ml @ 4.04 mls/hr TITRATE PRN IV 04/21/17 14:00 04/21/17 22:04 (NovoLOG SUPPLEMENTAL SCALE) 1 Q6HR SQ 04/21/17 18:00 04/24/17 05:16 (D50w (Vial) Inj) 25 ml UNSCH PRN IV 04/21/17 14:15 04/23/17 05:22 (Glucagon Inj) 1 mg UNSCH PRN IM/SQ 04/21/17 14:15 (Cathflo Activase Inj) 2 mg Q2H PRN INTRACATH 04/21/17 14:15 04/22/17 03:39 (Detrol La) 4 mg DAILY PO 04/21/17 15:00 Piperacillin Sod/ Tazobactam Sod 100 ml @ 200 mls/hr Q6H IV 04/21/17 18:00 04/24/17 12:11 Vasopressin 40 units/Sodium Chloride 100 ml @ 6 mls/hr [id number] IV 04/22/17 10:00 04/22/17 09:10 (Pepcid Inj) 10 mg Q12HR IV PUSH 04/22/17 21:00 04/24/17 08:21 (Levemir Inj) 15 units Q12HR SQ 04/23/17 09:00 04/23/17 21:31 Lactated Ringer's 1,000 ml @ 50 mls/hr Q20H IV 04/23/17 09:00 04/24/17 04:59 Miscellaneous Information D/C ICU ELECTROLYTE ORDERS... UNSCH PRN .XX 04/23/17 12:00 Miscellaneous Information ICU - CALL ORDERING PHYSIC... UNSCH PRN .XX 04/23/17 12:00 Potassium Chloride 100 ml @ 25 mls/hr UNSCH PRN IV 04/23/17 12:00 04/24/17 04:59 (K-Lyte Cl Eff) 50 meq UNSCH PRN PO 04/23/17 12:00 04/23/17 12:14 Potassium Chloride 100 ml @ 50 mls/hr UNSCH PRN IV 04/23/17 12:00 Magnesium Sulfate 4 gm/Sodium Chloride 108 ml @ 54 mls/hr UNSCH PRN IV 04/23/17 12:00 Magnesium Sulfate 2 gm/Sodium Chloride 104 ml @ 52 mls/hr UNSCH PRN IV 04/23/17 12:00 (Mag-Ox) 800 mg UNSCH PRN PO 04/23/17 12:00 Sodium Phosphate 30 mmol/Sodium Chloride 260 ml @ 43.333 mls/ hr UNSCH PRN IV 04/23/17 12:00 (K-Phos) 2,000 mg UNSCH PRN PO 04/23/17 12:00 Potassium Phosphate 30 mmol/ Sodium Chloride 260 ml @ 43.333 mls/ hr UNSCH PRN IV 04/23/17 12:00 Assessment and Plan Assessment and Plan Urologic impression: #1 history prostate cancer status post treatment with radiation therapy #2 gross hematuria of indeterminate etiology and may be related to history of radiation therapy #3 overactive bladder related to radiation therapy Recommendations: #1 continue with CBI and irrigate when necessary clots #2 attempt to slowly titrate off the CBI #3 tolterodine 4 mg by mouth daily for management of bladder spasms #4 would hold off on any further workup and evaluation until overall medical condition improves Heath Woods MD Apr 24, 2017 16:09
[2017-04-24] MEDS: MORPHINE SULFATE 2 MG/ML INJ IV PRN (16:36)
--- NOTE | 2017-04-24 17:49 | HHI.CCPN ---
Subjective Remarks/Hospital Course 04/12: 71-year-old male presents for evaluation after he fell hitting his head. Per family report they were in the bathroom trying to change his undergarments when he slipped and fell hitting his head. He is not on anticoagulant. The patient is pleasantly confused and patient's daughter states this is his baseline. He has had no altered mental status since the fall. No vomiting. The patient reports a mild headache without radiation. No neck pain or back pain. He has been ambulatory without difficulty since the fall. The CT head performed in the emergency department shows bilateral subdural hematomas in addition to parafalcine subdural hematoma, left frontal and temporal lobe intraparenchymal hemorrhages and subfalcine herniation from [id number]. 04/13: Resting in bed comfortably at the time of my evaluation this morning. Confused, does not know the year. Knows he is in the hospital. Moves all 4 extremity's. Does not appear to be in any acute distress. 04/14: Afebrile. The patient continues to be confused but easily following commands notable systolic ejection murmur, echo pending. Patient scheduled for neurosurgical intervention this afternoon. 04/15: Tmax 99.3. The patient status post craniotomy with evacuation of subdural hematoma last evening, remained intubated, only on sedation with propofol infusion and requiring low-dose phenylephrine to maintain map greater than 65. Sedation was briefly lightened last evening postoperatively, and the patient was extremely agitated. IV fluids changed from D5W to normal saline with [address] brain performed. INR pending. 04/16: Tmax 99.8 Patient agitated during the night , swinging his legs out of the bed while on maximum doses of propofol infusion, fentanyl infusion low-dose added this a.m. Patient's diet advance will begin tube feeds this a.m. The patient was noted to have multifocal PVCs intermittent during the night potassium level 3.2 currently being repleted with K-Phos. 04/17: Tmax 101.6. The patient underwent emergent craniotomy for evacuation of acute recurrent left subdural hematoma last evening. The patient continues on 3 % normal saline, with serial sodium and osmole is being followed. Currently weaning slowly sedation for neuro assessment. Patient noted to have a significant elevation in WBC count of 22, blood cultures urine cultures and sputum cultures obtained. Chest x-ray now showing bilateral lung opacities edema versus possible infectious process being ruled out. Echo revealed patient has severe aortic stenosis with a roommate mean gradient of 44. The patient continues on phenylephrine for vasopressors support at this time. 04/18: Last evening, the patient went into A. fib RVR, heart rate low 100s, with self resolution. This a.m. the patient continues to have sinus rhythm/sinus tachycardia 90-105 with frequent multifocal PVCs. Electrolytes within normal limits. Given the significant medical history for severe aortic stenosis metoprolol 2.5 mg IV for rapid heart rate instituted. The patient continues on phenylephrine infusion for maintenance of a map greater than 65. Propofol is currently being weaned off. EEG revealed last night severe encephalopathy. No change in neurological status but patient still is under sedation patient withdraws to pain bilateral lower extremities and now has spontaneous eye opening intermittently. Leukocytosis notably is resolving. 04/19: Afebrile. Today afternoon the patient was noted to have a seizure, Ativan 1 mg IV push with resolution EEG ordered. Post seizure the patient was noted to have gross hematuria. Coag studies performed within normal limits, fibrinogen level slightly elevated . Creatinine kinase noted to be within normal limits. Hematuria thought to possibly be secondary to acquired von Willebrand's factor secondary to the shear stress from his severe aortic stenosis. DDAVP 2 mcgs IV 1 dose ordered this a.m.. Patient continues on 3% sodium chloride, phenylephrine has been discontinued. 04/20: Remains sedated, orally intubated on mechanical ventilation. Remains on 3 % saline. Off phenylephrine currently. Blood pressure labile. Tolerating tube feeds. 04/21: Remains sedated, orally intubated on mechanical ventilation. Stopping 3% saline. Tolerating tube feeds 04/22: Remains sedated, orally intubated on mechanical ventilation. On Levophed for pressor support. Spiking temperatures. Started on Zosyn yesterday. Continues to have hematuria. One unit PRBCs and fluid bolus ordered. 04/23: Appears to have developed ADRIANNE from osmotic diuresis associated with poorly controlled diabetes. Hyperglycemia exacerbated by dextrose containing solution. Will start constant carb feedings with glucerna, reduce levemir, add SSI coverage, and hydrate to correct fluid depletion. 04/24: Continued serum concentration associated with free water loss. No improvement in neurological function. Suspect osmotic diuresis from elevated glucose but will check urine specific gravity to rule out DI. Objective Vital Signs Date Time Temp Pulse Resp B/P (MAP) Pulse Ox O2 Delivery O2 Flow Rate FiO2 04/24/17 17:27 99 40 04/24/17 16:00 102 04/24/17 16:00 99.6 17 150/60 (90) 04/23/17 03:13 Ventilator 04/23/17 00:00 6.00 Intake and Output 04/24/17 04/24/17 04/25/17 08:00 16:00 00:00 Intake Total 1611 ml 300 ml Output Total 2675.0 ml 0 ml Balance -1064.0 ml 300 ml Result Diagram: 04/24/17 0317 04/24/17 1335 Imaging Last Impressions Head CT 04/18/17 1200 Signed Impressions: Service Date/Time: Tuesday, April 18, 2017 13:04 - CONCLUSION: Stable acute subdural hematomas within the frontal regions bilaterally measuring 15 mm in greatest width on the left and 9 mm in greatest width on the right and resulting in 5 mm of subfalcine herniation to the right which is slightly improved compared to the previous examination. Left posterior parietal and tentorial subdural hematomas are stable also. Adriel Cherry MD Chest X-Ray 04/18/17 0600 Signed Impressions: Service Date/Time: Tuesday, April 18, 2017 03:37 - CONCLUSION: No significant change with persistent patchy bilateral lower lung zone opacity. David Meade MD Cervical Spine CT 04/12/17 0000 Signed Impressions: Service Date/Time: Wednesday, April 12, 2017 17:36 - CONCLUSION: Degenerative spondylosis without any significant compromise to the thecal sac or the exiting nerve roots. Maria Guadalupe Alvarado MD Last Impressions Chest X-Ray 04/17/17 0109 Signed Impressions: Service Date/Time: Monday, April 17, 2017 01:16 - CONCLUSION: 1. Right IJ central venous catheter in place with the tip in the region of proximal SVC. No evidence of pneumothorax. 2. Patchy bilateral lower lung zone opacity. David Meade MD Head CT 04/16/17 0000 Signed Impressions: Service Date/Time: April 21:08 - CONCLUSION: 1. Significant mass effect is now identified with herniation as described above. The findings of this study were discussed with Dr. Corral at 9: 2. 35 PM on April 16, 2017. Dharmesh Muhammad MD Cervical Spine CT 04/12/17 0000 Signed Impressions: Service Date/Time: Wednesday, April 12, 2017 17:36 - CONCLUSION: Degenerative spondylosis without any significant compromise to the thecal sac or the exiting nerve roots. Maria Guadalupe Alvarado MD Last Impressions Chest X-Ray 04/16/17599 Signed Impressions: Service Date/Time: April 04:50 - CONCLUSION: Lines and tubes. Clear lungs. Da Ramirez Jr., MD Head CT 04/15/17599 Signed Impressions: Service Date/Time: Saturday, April 15, 2017 04:27 - CONCLUSION: 1. Interval left craniotomy with surgical drain placement. There is new diffuse subdural hematoma involving the left side beneath the craniotomy bone despite surgical drain placement. 2. Small subdural hemorrhage along the right frontal region. This is slightly larger from the prior study. 3. Reduction in size the midline shift. Da Ramirez Jr., MD Cervical Spine CT 04/12/17 0000 Signed Impressions: Service Date/Time: Wednesday, April 12, 2017 17:36 - CONCLUSION: Degenerative spondylosis without any significant compromise to the thecal sac or the exiting nerve roots. Maria Guadalupe Alvarado MD Last [address] 04/12/17 0000 Signed Impressions: Service Date/Time: Wednesday, April 12, 2017 17:36 - CONCLUSION: Bilateral subdural hematomas in addition to parafalcine subdural hematoma, left frontal and temporal lobe intraparenchymal hemorrhages and subfalcine herniation from [id number]. Maria Guadalupe Alvarado MD Cervical Spine CT 04/12/17 0000 Signed Impressions: Service Date/Time: Wednesday, April 12, 2017 17:36 - CONCLUSION: Degenerative spondylosis without any significant compromise to the thecal sac or the exiting nerve roots. Maria Guadalupe Alvarado MD Objective Remarks GENERAL: Elderly gentleman intubated and sedated currently on fentanyl infusion for ventilator synchrony. SKIN: Warm and dry. HEAD: Atraumatic. Normocephalic. KWAME drains with serosanguineous fluid, minimal output EYES: Pupils equal and round. No scleral icterus. No injection or drainage. ENT: No nasal bleeding or discharge. Mucous membranes pink and moist. NECK: Trachea midline. Now orally intubated. CARDIOVASCULAR: Regular rate and rhythm. Harsh systolic murmur. RESPIRATORY: No accessory muscle use. Clear to auscultation. Breath sounds equal bilaterally. GASTROINTESTINAL: Abdomen soft, non-tender, nondistended. Hepatic and splenic margins not palpable. MUSCULOSKELETAL: Extremities without clubbing, cyanosis, or edema. No obvious deformities. Well perfused. NEUROLOGICAL: GCS 3T. Intubated and sedated, withdraws to pain bilateral lower extremities, positive cough,/gag reflex. Grimace to pain. No movement of upper extremities, no spontaneous eye opening. Procedures 04/14-left frontoparietal craniotomy with evacuation of subacute on chronic SDH 04/17-@ 0000 emergent craniotomy with evacuation of acute recurrent left subdural hematoma Date of Insertion: Apr 13, 2017 A/P Assessment and Plan TBI -Subdural hematoma S/P Left frontoparietal craniotomy with evacuation of subacute on chronic SDH POD 6 S/P Emergency revision/evacuation of acute recurrent left subdural hematoma POD 4 -Neurosurgery following. Dr. Odom - Fentanyl gtt for agitation, attempt to wean off and utilize fentanyl only in the setting of patient with hypotension. Titrate off propofol. - Neuro checks per protocol - Daily sedation vacation - Repeat CT head per neurosurgery-stable acute subdural hematoma within frontal regions, bilateral 5 mm subfalcine herniation to the right - Seizure prophylaxis with Keppra -04/17-3% normal saline at 20 cc an hour. Stopping 3% saline on 04/21 due to sodium 157 -Monitor KWAME drainage. Repeat head CT plan for 04/23 with subsequent decision regarding SDH evacuation per Dr. Odom - 04/18 EEG-severe encephalopathy COPD Acute respiratory failure on mechanical ventilation - No exacerbation. No steroids indicated - Continue mechanical ventilation, vent bundle, bronchodilators. Daily C Pap trials. Patient lasted 4 hours on C Pap yesterday. - DuoNeb scheduled and when necessary - Chest x-rays and ABGs when clinically indicated Dementia - Hold Aricept- 2/2 QTc prolongation H/O Hypertension Severe Hypotension Sinus tachycardia -Hold all antihypertensives as patient is requiring Levophed for pressor support Continue Levophed gtt., added low-dose vasopressin on 04/22 to maintain MAP greater than 65 -12 EKG prolonged QT 475, continue close monitoring - 04/16 Echo-severe aortic stenosis EF 50- 55 % Severe left ventricular concentric hypertrophy, aortic mean gradient of 44 - Patient currently on phenylephrine at 50 mics, and tin you to wean as tolerated - Phenylephrine discontinued 03 AM on 04/19 - Repeat phototypesetting equipment monitor QTc- will hold Aricept and Zoloft which may be contributory Hematuria Munoz catheter changed per urology recommendations on 04/21. Dr. Woods following. May require CBI. Ordered 1 unit PRBCs on 04/22 for ongoing blood loss from hematuria with drop in hemoglobin and hypotension. Psychosis - Trazodone -on hold in 05/15 QTc prolongation - Zoloft-on hold Uncontrolled Diabetes mellitus - Hold metformin - Insulin sliding scale-high dose dose regimen, increase Levemir to 15 units every 12 hourly on 04/23 Malnutrition - Continue tube feeds Glucerna 1.5 with goal 60cc/hr Septic shock Pneumonia Bacteremia 04/19-blood [id number] cocci 04/14 sets - contaminant 04/20 - Sputum cultures with GNR, follow-up speciation. Empiric zosyn started 04/21. DVT GI prophylaxis - Teds SCDs - No pharmacological DVT prophylaxis due to subdural hematoma - Pepcid BID Further recommendations per neurosurgery. Overall impression: This patient remains critically ill with one or more organ systems which are or may become a threat to life. I have spent in excess of 40 minutes discontinuously in the care and management of this patient. This time is exclusive of procedures, and includes, but is not limited to, evaluation of the patient, review of the medical record, discussions with family, consultants , nursing staff, or respiratory therapy, and documentation in the medical record. Discussed with PERFORMANCE IMPROVEMENT ANALYST at bedside. Roland Figueroa MD Apr 24, 2017 17:49
[2017-04-24] MEDS: SODIUM CHLORIDE 23.4% INJ 38.5 MEQ in WATER STERILE FOR INJ 1,000 ML IV SCH (18:47)
[2017-04-24] MEDS: SODIUM CHLOR 0.45% 1000 ML INJ 1,000 ML IV SCH (22:36)
[2017-04-24] MEDS ORDERED: DESMOPRESSIN ACETATE 4 MCG/ML VIAL SQ ONE (23:00)
[2017-04-25] VITALS (17 sets, daily range): BP systolic 119–157; BP diastolic 42–69; PULSE 70–104; RESP 16–28; TEMP 98.4–99.3; O2SAT 96–100
[2017-04-25] MEDS: SODIUM CHLOR 0.45% 1000 ML INJ 1,000 ML IV SCH (00:01)
[2017-04-25] MEDS: INSULIN ASPART SUPPLEMENTAL SCALE SQ SCH ×4 (00:20→18:00)
[2017-04-25] MEDS ORDERED: SODIUM CHLOR 0.45% IV ONE (01:00)
[2017-04-25] MEDS: MORPHINE SULFATE 2 MG/ML INJ IV PRN ×2 (02:18→07:56)
[2017-04-25] MEDS: SODIUM CHLORIDE 23.4% INJ 38.5 MEQ in WATER STERILE FOR INJ 1,000 ML IV SCH ×3 (02:18→21:07)
[2017-04-25] MEDS: CHLORHEXIDINE GLUCONATE 2 % 1 PACK (2 CLOTHS) TOP SCH (02:21)
[2017-04-25] MEDS: VASOPRESSIN INJ 40 UNITS in SODIUM CHLORIDE 0.9% INJ 98 ML IV SCH ×2 (04:40→21:20)
[2017-04-25 04:47] LABS: AUTOMATED NEUTROPHIL # 10.5 TH/MM3 (1.8-7.7); BASOPHIL % 0.1 % (0.0-2.0); EOSINOPHIL # 0.2 TH/MM3 (0-0.4); EOSINOPHIL % 1.3 % (0.0-4.0); HEMATOCRIT 28.3 % (39.0-51.0); HEMOGLOBIN 9.5 GM/DL (13.0-17.0); LYMPH % 4.7 % (9.0-44.0); LYMPHOCYTE # 0.5 TH/MM3 (1.0-4.8); MEAN CELL VOLUME 85.6 FL (80.0-100.0); MEAN CORPUSCULAR HEMOGLOBIN 28.8 PG (27.0-34.0); MEAN CORPUSCULAR HGB CONC 33.7 % (32.0-36.0); MONO % 3.2 % (0.0-8.0); MONOCYTE # 0.4 TH/MM3 (0-0.9); NEUT % 90.7 % (16.0-70.0); PLATELET COUNT 224 TH/MM3 (150-450); RED BLOOD COUNT 3.31 MIL/MM3 (4.50-5.90); RED CELL DISTRIBUTION WIDTH 16.9 % (11.6-17.2); WHITE BLOOD COUNT 11.5 TH/MM3 (4.0-11.0)
[2017-04-25 05:19] LABS: BICARBONATE 27.5 MEQ/L (21.0-32.0); CALCIUM 7.8 MG/DL (8.5-10.1); CREATININE 1.03 MG/DL (0.60-1.30); MAGNESIUM 2.1 MG/DL (1.5-2.5)
[2017-04-25] MEDS: PIPERACIL-TAZO 4.5 GM PREMIX 100 ML IV SCH ×3 (05:24→17:28)
[2017-04-25] MEDS: hydrALAZINE HCL 20 MG/ML VIAL IV PUSH PRN (05:42)
[2017-04-25] MEDS: POTASSIUM CHLORIDE 25 MEQ EFFERVESCENT TAB PO PRN (05:48)
[2017-04-25] MEDS: INSULIN DETEMIR 100 UNITS/ML VIAL SQ SCH ×2 (07:56→20:39)
[2017-04-25] MEDS: GABAPENTIN 400 MG CAP PO SCH ×3 (07:56→17:28)
[2017-04-25] MEDS: FAMOTIDINE 20 MG/2 ML VIAL IV PUSH SCH ×2 (07:56→20:40)
[2017-04-25] MEDS: PRAVASTATIN SOD 40 MG TAB PO SCH (07:56)
[2017-04-25] MEDS: DOCUSATE SODIUM 50 MG/SENNA 8.6 MG TAB PO SCH ×2 (07:56→20:39)
[2017-04-25] MEDS: VALSARTAN 80 MG TAB PO SCH (07:57)
[2017-04-25] MEDS: SODIUM CHLORIDE 0.9% FLUSH 10 ML FLUSH IV FLUSH SCH ×2 (07:57→20:40)
[2017-04-25] MEDS: levETIRAcetam INJ 500 MG in SODIUM CHLORIDE 0.9% INJ 100 ML IV SCH ×2 (07:57→20:39)
[2017-04-25] MEDS: TOLTERODINE TARTRATE 4 MG CAP LA PO SCH (07:57)
[2017-04-25 08:15] LABS: OVALOCYTES 1+ (NORMAL)
--- NOTE | 2017-04-25 09:59 | HHI.NSPN ---
History Chief Complaint: Unable to obtain due to patient's clinical condition. Interval History Interval History 04/12: Mr. Hope is a 71-year-old male who presented to the emergency room today after he fell at home in the presence of his daughter. She states that he lost his balance while trying to put some close on, and fell and struck his head. There was no loss of consciousness. No seizure activity or nausea or emesis reported. The patient has baseline dementia and confusion, but no definite overall change in his mentation after the fall earlier today, according to his daughter, who he lives with. He presently has no complaint of headache. He does have some chronic neck and back pain. 04/13: The patient was examined in the presence of the family today and a more detailed history has been obtained. They indicate chronic progressive dementia to the point that the patient has had to move in with his daughter earlier this year. He cannot care for himself. He is usually quite confused, conversing with only a few words or short sentences and unable to stay on task with conversations. He is usually very active, fidgeting constantly. They state that his mental status today is not significantly changed from his overall baseline. He did go to the emergency room a couple of weeks ago at [facility] due to some pressure sensation or frontal headaches and was diagnosed with sinus congestion. A CT scan of the head was not obtained. He has had no definite falls over the past few weeks up until yesterday. 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 Post-operatively he returned to [facility] for further care and monitoring. 04/15: This morning the patient is obtunded and has no sedation infusing. He does withdraw to noxious stimulation. He does not open his eyes but does have facial grimacing and turns his head to noxious stimulation. ADDENDUM at 1854: Patient was sedated with propofol 50 mcg/kg/min when seen, the pump was not visible at the time. BET. 04/16: When seen the patient is obtunded but does have the propofol drip infusing. Nursing reports that he moves all extremities but does become agitated when the propofol is weaned down. He moves all extremities to noxious stimulation when seen but did not follow any commands. 04/17: The patient remains obtunded and continues to be sedated with a propofol drip. He is now on phenylephrine for blood pressure support. He does not respond to commands and only withdraws the lower extremities to noxious stimulation. He does have some facial grimacing but no eye opening to noxious stimulation. He did go emergently late last night/early this morning for a revision of the left frontoparietal craniotomy for evacuation of a recurrent left hemisphere subdural haematoma. 04/18/17: intubated, propofol just turned off, intermittent movement to ext per nursing, not opening eyes. 04/19/17: nursing reports seizures yesterday, repeat CT head stable residual SDH and 5 mm midline shift. Awaiting EEG. 04/20: Patient with right eye partially opened when seen but Nursing just stimulated patient. He remains intubated and mechanically ventilated. He withdraws to noxious stimuli to the lower extremities but not the upper. He does have facial grimacing to noxious stimulation. Nursing reports that overnight KWAME #1 had 170 mL of yellowish drainage. She also says the patient has been off sedation approximately 36 hours. 04/21: The patient was examined in the presence of the family today and a more detailed history has been obtained. They indicate chronic progressive dementia to the point that the patient has had to move in with his daughter earlier this year. He cannot care for himself. He is usually quite confused, conversing with only a few words or short sentences and unable to stay on task with conversations. He is usually very active, fidgeting constantly. They state that his mental status today is not significantly changed from his overall baseline. He did go to the emergency room a couple of weeks ago at [facility] due to some pressure sensation or frontal headaches and was diagnosed with sinus congestion. A CT scan of the head was not obtained. He has had no definite falls over the past few weeks up until yesterday. 04/23: When seen the patient did have his eyes partially opened and he opened them wider to voice. He was moving the left upper and both lower extremities to varying degrees spontaneously. It was questionable if he moved the left lower to command but did move all extremities to noxious stimulation. 04/24: It is difficult to say if the patient was asleep when seen or not. It did appear he had his eyes partially open since Nursing was in the room. He did open them briefly to my voice. He spontaneously moved the left hand some and gripped this practitioner's hand. He moved the lower extremities to command. There was no noted movement of the right upper to noxious stimulation but he did have facial grimacing. 04/25: Patient is sedated but will respond to painful stimulation. Exam Results Vital Signs Date Time Temp Pulse Resp B/P (MAP) Pulse Ox O2 Delivery O2 Flow Rate FiO2 04/25/17 08:00 99.3 104 28 157/66 (96) 97 04/25/17 07:10 35 04/23/17 03:13 Ventilator 04/23/17 00:00 6.00 Intake and Output 04/25/17 04/25/17 04/26/17 08:00 16:00 00:00 Intake Total 3400 ml 100 ml Output Total 2800.0 ml Balance 600.0 ml 100 ml Physical Examination NEUROLOGICAL: Patient is sedated and difficult to arouse but will open eyes to painful stimulation. He is not tracking to voice. He will withdraw/localized in the left upper extremity. Mild withdrawal in both lower extremities. No movement right upper extremity to painful stimulation. Surgical incision is intact without evidence of redness or swelling. Subdural drain remains in place and continues to put out serosanguineous fluid. Lab, Micro, Other Results Laboratory Tests Test 04/24/17 13:35 04/25/17 04:30 Potassium Level 3.6 3.4 White Blood Count 11.5 Red Blood Count 3.31 Hemoglobin 9.5 Hematocrit 28.3 Mean Corpuscular Volume 85.6 Mean Corpuscular Hemoglobin 28.8 Mean Corpuscular Hemoglobin Concent 33.7 Red Cell Distribution Width 16.9 Platelet Count 224 Mean Platelet Volume 8.0 Neutrophils (%) (Auto) 90.7 Lymphocytes (%) (Auto) 4.7 Monocytes (%) (Auto) 3.2 Eosinophils (%) (Auto) 1.3 Basophils (%) (Auto) 0.1 Neutrophils # (Auto) 10.5 Lymphocytes # (Auto) 0.5 Monocytes # (Auto) 0.4 Eosinophils # (Auto) 0.2 Basophils # (Auto) 0.0 CBC Comment AUTO DIFF Differential Comment AUTO DIFF CONFIRMED Ovalocytes 1+ Blood Urea Nitrogen 27 Creatinine 1.03 Random Glucose 182 Calcium Level 7.8 Magnesium Level 2.1 Sodium Level 156 Chloride Level 124 Carbon Dioxide Level 27.5 Anion Gap 5 Estimat Glomerular Filtration Rate 71 Date/Time Source Procedure Growth Status 04/21/17 18:53 Blood Peripheral Aerobic Blood Culture - Preliminary NO GROWTH IN 3 DAYS Resulted 04/21/17 18:53 Blood Peripheral Anaerobic Blood Culture - Preliminary NO GROWTH IN 3 DAYS Resulted 04/20/17 13:30 Sputum Endotracheal Gram Stain - Final Complete 04/20/17 13:30 Sputum Culture - Final Escherichia Coli Klebsiella Pneumoniae Complete Medical Decision Making Impression and Plan Impression: 1. 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 Dementia 4. Cardiac murmur Plan: Continue ICU observation and supportive care. Cruz Blue MD Apr 25, 2017 09:59
--- NOTE | 2017-04-25 10:17 | HHI.CCPN ---
Subjective Remarks/Hospital Course 04/12: 71-year-old male presents for evaluation after he fell hitting his head. Per family report they were in the bathroom trying to change his undergarments when he slipped and fell hitting his head. He is not on anticoagulant. The patient is pleasantly confused and patient's daughter states this is his baseline. He has had no altered mental status since the fall. No vomiting. The patient reports a mild headache without radiation. No neck pain or back pain. He has been ambulatory without difficulty since the fall. The CT head performed in the emergency department shows bilateral subdural hematomas in addition to parafalcine subdural hematoma, left frontal and temporal lobe intraparenchymal hemorrhages and subfalcine herniation from [id number]. 04/13: Resting in bed comfortably at the time of my evaluation this morning. Confused, does not know the year. Knows he is in the hospital. Moves all 4 extremity's. Does not appear to be in any acute distress. 04/14: Afebrile. The patient continues to be confused but easily following commands notable systolic ejection murmur, echo pending. Patient scheduled for neurosurgical intervention this afternoon. 04/15: Tmax 99.3. The patient status post craniotomy with evacuation of subdural hematoma last evening, remained intubated, only on sedation with propofol infusion and requiring low-dose phenylephrine to maintain map greater than 65. Sedation was briefly lightened last evening postoperatively, and the patient was extremely agitated. IV fluids changed from D5W to normal saline with [address] brain performed. INR pending. 04/16: Tmax 99.8 Patient agitated during the night , swinging his legs out of the bed while on maximum doses of propofol infusion, fentanyl infusion low-dose added this a.m. Patient's diet advance will begin tube feeds this a.m. The patient was noted to have multifocal PVCs intermittent during the night potassium level 3.2 currently being repleted with K-Phos. 04/17: Tmax 101.6. The patient underwent emergent craniotomy for evacuation of acute recurrent left subdural hematoma last evening. The patient continues on 3 % normal saline, with serial sodium and osmole is being followed. Currently weaning slowly sedation for neuro assessment. Patient noted to have a significant elevation in WBC count of 22, blood cultures urine cultures and sputum cultures obtained. Chest x-ray now showing bilateral lung opacities edema versus possible infectious process being ruled out. Echo revealed patient has severe aortic stenosis with a roommate mean gradient of 44. The patient continues on phenylephrine for vasopressors support at this time. 04/18: Last evening, the patient went into A. fib RVR, heart rate low 100s, with self resolution. This a.m. the patient continues to have sinus rhythm/sinus tachycardia 90-105 with frequent multifocal PVCs. Electrolytes within normal limits. Given the significant medical history for severe aortic stenosis metoprolol 2.5 mg IV for rapid heart rate instituted. The patient continues on phenylephrine infusion for maintenance of a map greater than 65. Propofol is currently being weaned off. EEG revealed last night severe encephalopathy. No change in neurological status but patient still is under sedation patient withdraws to pain bilateral lower extremities and now has spontaneous eye opening intermittently. Leukocytosis notably is resolving. 04/19: Afebrile. Today afternoon the patient was noted to have a seizure, Ativan 1 mg IV push with resolution EEG ordered. Post seizure the patient was noted to have gross hematuria. Coag studies performed within normal limits, fibrinogen level slightly elevated . Creatinine kinase noted to be within normal limits. Hematuria thought to possibly be secondary to acquired von Willebrand's factor secondary to the shear stress from his severe aortic stenosis. DDAVP 2 mcgs IV 1 dose ordered this a.m.. Patient continues on 3% sodium chloride, phenylephrine has been discontinued. 04/20: Remains sedated, orally intubated on mechanical ventilation. Remains on 3 % saline. Off phenylephrine currently. Blood pressure labile. Tolerating tube feeds. 04/21: Remains sedated, orally intubated on mechanical ventilation. Stopping 3% saline. Tolerating tube feeds 04/22: Remains sedated, orally intubated on mechanical ventilation. On Levophed for pressor support. Spiking temperatures. Started on Zosyn yesterday. Continues to have hematuria. One unit PRBCs and fluid bolus ordered. 04/23: Appears to have developed ADRIANNE from osmotic diuresis associated with poorly controlled diabetes. Hyperglycemia exacerbated by dextrose containing solution. Will start constant carb feedings with glucerna, reduce levemir, add SSI coverage, and hydrate to correct fluid depletion. 04/24: Continued serum concentration associated with free water loss. No improvement in neurological function. Suspect osmotic diuresis from elevated glucose but will check urine specific gravity to rule out DI. 04/25: Osmolality improving. Continue DDAVP prn. Objective Vital Signs Date Time Temp Pulse Resp B/P (MAP) Pulse Ox O2 Delivery O2 Flow Rate FiO2 04/25/17 10:04 97 35 04/25/17 08:00 99.3 104 28 157/66 (96) 04/23/17 03:13 Ventilator 04/23/17 00:00 6.00 Intake and Output 04/25/17 04/25/17 04/26/17 08:00 16:00 00:00 Intake Total 3400 ml 100 ml Output Total 2800.0 ml Balance 600.0 ml 100 ml Result Diagram: 04/25/17 0430 04/25/17 0430 Imaging Last Impressions Head CT 04/18/17 1200 Signed Impressions: Service Date/Time: Tuesday, April 18, 2017 13:04 - CONCLUSION: Stable acute subdural hematomas within the frontal regions bilaterally measuring 15 mm in greatest width on the left and 9 mm in greatest width on the right and resulting in 5 mm of subfalcine herniation to the right which is slightly improved compared to the previous examination. Left posterior parietal and tentorial subdural hematomas are stable also. Adriel Cherry MD Chest X-Ray 04/18/17 0600 Signed Impressions: Service Date/Time: Tuesday, April 18, 2017 03:37 - CONCLUSION: No significant change with persistent patchy bilateral lower lung zone opacity. David Meade MD Cervical Spine CT 04/12/17 0000 Signed Impressions: Service Date/Time: Wednesday, April 12, 2017 17:36 - CONCLUSION: Degenerative spondylosis without any significant compromise to the thecal sac or the exiting nerve roots. Maria Guadalupe Alvarado MD Last Impressions Chest X-Ray 04/17/17 0109 Signed Impressions: Service Date/Time: Monday, April 17, 2017 01:16 - CONCLUSION: 1. Right IJ central venous catheter in place with the tip in the region of proximal SVC. No evidence of pneumothorax. 2. Patchy bilateral lower lung zone opacity. David Meade MD Head CT 04/16/17 0000 Signed Impressions: Service Date/Time: April 21:08 - CONCLUSION: 1. Significant mass effect is now identified with herniation as described above. The findings of this study were discussed with Dr. Corral at 9: 2. 35 PM on April 16, 2017. Dharmesh Muhammad MD Cervical Spine CT 04/12/17 0000 Signed Impressions: Service Date/Time: Wednesday, April 12, 2017 17:36 - CONCLUSION: Degenerative spondylosis without any significant compromise to the thecal sac or the exiting nerve roots. Maria Guadalupe Alvarado MD Last Impressions Chest X-Ray 04/16/17599 Signed Impressions: Service Date/Time: April 04:50 - CONCLUSION: Lines and tubes. Clear lungs. Da Ramirez Jr., MD Head CT 04/15/17599 Signed Impressions: Service Date/Time: Saturday, April 15, 2017 04:27 - CONCLUSION: 1. Interval left craniotomy with surgical drain placement. There is new diffuse subdural hematoma involving the left side beneath the craniotomy bone despite surgical drain placement. 2. Small subdural hemorrhage along the right frontal region. This is slightly larger from the prior study. 3. Reduction in size the midline shift. Da Ramirez Jr., MD Cervical Spine CT 04/12/17 0000 Signed Impressions: Service Date/Time: Wednesday, April 12, 2017 17:36 - CONCLUSION: Degenerative spondylosis without any significant compromise to the thecal sac or the exiting nerve roots. Maria Guadalupe Alvarado MD Last [address] 04/12/17 0000 Signed Impressions: Service Date/Time: Wednesday, April 12, 2017 17:36 - CONCLUSION: Bilateral subdural hematomas in addition to parafalcine subdural hematoma, left frontal and temporal lobe intraparenchymal hemorrhages and subfalcine herniation from [id number]. Maria Guadalupe Alvarado MD Cervical Spine CT 04/12/17 0000 Signed Impressions: Service Date/Time: Wednesday, April 12, 2017 17:36 - CONCLUSION: Degenerative spondylosis without any significant compromise to the thecal sac or the exiting nerve roots. Maria Guadalupe Alvarado MD Objective Remarks GENERAL: Elderly gentleman intubated and sedated currently on fentanyl infusion for ventilator synchrony. SKIN: Warm and dry. HEAD: Atraumatic. Normocephalic. KWAME drains with serosanguineous fluid, minimal output EYES: Pupils equal and round. No scleral icterus. No injection or drainage. ENT: No nasal bleeding or discharge. Mucous membranes pink and moist. NECK: Trachea midline. Now orally intubated. CARDIOVASCULAR: Regular rate and rhythm. Harsh systolic murmur. RESPIRATORY: No accessory muscle use. Clear to auscultation. Breath sounds equal bilaterally. GASTROINTESTINAL: Abdomen soft, non-tender, nondistended. Hepatic and splenic margins not palpable. MUSCULOSKELETAL: Extremities without clubbing, cyanosis. Right arm with gross edema. No obvious deformities. Well perfused. NEUROLOGICAL: GCS 3T. Intubated and sedated, withdraws to pain bilateral lower extremities, positive cough,/gag reflex. Grimace to pain. Moves left side more but does not follow. No movement of upper extremities, no spontaneous eye opening. Procedures 04/14-left frontoparietal craniotomy with evacuation of subacute on chronic SDH 04/17-@ 0000 emergent craniotomy with evacuation of acute recurrent left subdural hematoma Date of Insertion: Apr 13, 2017 A/P Assessment and Plan TBI -Subdural hematoma S/P Left frontoparietal craniotomy with evacuation of subacute on chronic SDH POD 6 S/P Emergency revision/evacuation of acute recurrent left subdural hematoma POD 4 -Neurosurgery following. Dr. Odom - Fentanyl gtt for agitation, attempt to wean off and utilize fentanyl only in the setting of patient with hypotension. Titrate off propofol. - Neuro checks per protocol - Daily sedation vacation - Repeat CT head per neurosurgery-stable acute subdural hematoma within frontal regions, bilateral 5 mm subfalcine herniation to the right - Seizure prophylaxis with Keppra -04/17-3% normal saline at 20 cc an hour. Stopping 3% saline on 04/21 due to sodium 157 -Monitor KWAME drainage. Repeat head CT plan for 04/23 with subsequent decision regarding SDH evacuation per Dr. Odom - 04/18 EEG-severe encephalopathy COPD Acute respiratory failure on mechanical ventilation - No exacerbation. No steroids indicated - Continue mechanical ventilation, vent bundle, bronchodilators. Daily C Pap trials. Patient lasted 4 hours on C Pap yesterday. - DuoNeb scheduled and when necessary - Chest x-rays and ABGs when clinically indicated Dementia - Hold Aricept- 2/2 QTc prolongation H/O Hypertension Severe Hypotension Sinus tachycardia -Hold all antihypertensives as patient is requiring Levophed for pressor support Continue Levophed gtt., added low-dose vasopressin on 04/22 to maintain MAP greater than 65 -2 EKG prolonged QT 475, continue close monitoring - 04/16 Echo-severe aortic stenosis EF 50- 55 % Severe left ventricular concentric hypertrophy, aortic mean gradient of 44 - Patient currently on phenylephrine at 50 mics, and tin you to wean as tolerated - Phenylephrine discontinued 03 AM on 04/19 - Repeat nurse monitoring QTc- will hold Aricept and Zoloft which may be contributory Hematuria Munoz catheter changed per urology recommendations on 04/21. Dr. Woods following. May require CBI. Ordered 1 unit PRBCs on 04/22 for ongoing blood loss from hematuria with drop in hemoglobin and hypotension. Psychosis - Trazodone -on hold in 05/15 QTc prolongation - Zoloft-on hold Uncontrolled Diabetes mellitus - Hold metformin - Insulin sliding scale-high dose dose regimen, increase Levemir to 15 units every 12 hourly on 04/23 Diabetes Insipidus - Unable to get clear urine due to bladder bleed. - Responding well to DDAVP. Malnutrition - Continue tube feeds Glucerna 1.5 with goal 60cc/hr Septic shock Pneumonia Bacteremia 04/19-blood [id number] cocci 04/14 sets - contaminant 04/20 - Sputum cultures with GNR, follow-up speciation. Empiric zosyn started 04/21. DVT GI prophylaxis - Teds SCDs - No pharmacological DVT prophylaxis due to subdural hematoma - Pepcid BID Further recommendations per neurosurgery. Overall impression: This patient remains critically ill with one or more organ systems which are or may become a threat to life. I have spent in excess of 35 minutes discontinuously in the care and management of this patient. This time is exclusive of procedures, and includes, but is not limited to, evaluation of the patient, review of the medical record, discussions with family, consultants , nursing staff, or respiratory therapy, and documentation in the medical record. Discussed with MORGUE TECHNICIAN at bedside. Roland Figueroa MD Apr 25, 2017 10:17
--- NOTE | 2017-04-25 12:27 | RADRPT ---
EXAM DATE/TIME: 04/25/2017 11:44 [facility] COMPARISON: No previous studies available for comparison. INDICATIONS : Right arm swelling. MEDICAL HISTORY : Hypertension. Chronic obstructive pulmonary disease. Anticoagulant therapy. Prostate cancer. Diabete s. Depression. Anxiety. Claustrophobia. SURGICAL HISTORY : Unable to obtain. ENCOUNTER: Initial ACUITY: 1 day PAIN SCORE: Non-responsive LOCATION: Right arm. FINDINGS: There is spontaneous flow documented in the brachial, basilic, cephalic, axillary, and subclavian vei ns. The vessels are compressible and augmentation response is documented. No filling defects are se en. The flow is phasic with respiration. Direction of flow in the jugular vein is caudal. CONCLUSION: No evidence of right upper extremity DVT. David Meade MD on April 25, 2017 at 12:24 Board Certified Radiologist. This report was verified electronically.
[2017-04-25] MEDS: DESMOPRESSIN ACETATE 4 MCG/ML VIAL IV PUSH PRN (15:09)
[2017-04-26] VITALS (14 sets, daily range): BP systolic 127–141; BP diastolic 60–84; PULSE 72–96; RESP 18–28; TEMP 97.7–99.3; O2SAT 96–99
[2017-04-26] MEDS: PIPERACIL-TAZO 4.5 GM PREMIX 100 ML IV SCH ×4 (01:53→17:21)
[2017-04-26] MEDS: CHLORHEXIDINE GLUCONATE 2 % 1 PACK (2 CLOTHS) TOP SCH (04:00)
[2017-04-26] MEDS: INSULIN ASPART SUPPLEMENTAL SCALE SQ SCH ×4 (04:39→17:21)
[2017-04-26] MEDS: DESMOPRESSIN ACETATE 4 MCG/ML VIAL IV PUSH PRN ×2 (05:18→18:32)
--- NOTE | 2017-04-26 05:51 | RADRPT ---
EXAM DATE/TIME: 04/26/2017 04:12 [facility] COMPARISON: CHEST SINGLE AP, April 23, 2017, 3:32. INDICATIONS : Pneumonia. MEDICAL HISTORY : Hypertension. Chronic obstructive pulmonary disease. Prostate cancer. Diabetes. Depression. Anxiety. SURGICAL HISTORY : Unable to obtain. ENCOUNTER: Subsequent ACUITY: 2 weeks PAIN SCORE: Non-responsive. LOCATION: Bilateral chest FINDINGS: The support devices remain in place. There is no pneumothorax. There continues to be bibasilar infilt rates suggestive of atelectasis. No significant changes compared to the prior study. CONCLUSION: No significant interval change. Zeferino Hewitt MD on April 26, 2017 at 5:48 Board Certified Radiologist. This report was verified electronically.
[2017-04-26 08:23] LABS: BICARBONATE 28.8 MEQ/L (21.0-32.0); CALCIUM 8.1 MG/DL (8.5-10.1); CREATININE 0.93 MG/DL (0.60-1.30)
[2017-04-26] MEDS: PRAVASTATIN SOD 40 MG TAB PO SCH (08:52)
[2017-04-26] MEDS: SODIUM CHLORIDE 0.9% FLUSH 10 ML FLUSH IV FLUSH SCH ×2 (08:52→20:45)
[2017-04-26] MEDS: levETIRAcetam INJ 500 MG in SODIUM CHLORIDE 0.9% INJ 100 ML IV SCH ×2 (08:52→20:44)
[2017-04-26] MEDS: GABAPENTIN 400 MG CAP PO SCH ×4 (08:52→17:21)
[2017-04-26] MEDS: FAMOTIDINE 20 MG/2 ML VIAL IV PUSH SCH ×2 (08:52→20:45)
[2017-04-26] MEDS: TOLTERODINE TARTRATE 4 MG CAP LA PO SCH (08:52)
[2017-04-26] MEDS: DOCUSATE SODIUM 50 MG/SENNA 8.6 MG TAB PO SCH ×2 (08:53→20:45)
[2017-04-26] MEDS: INSULIN DETEMIR 100 UNITS/ML VIAL SQ SCH ×2 (09:00→20:45)
[2017-04-26] MEDS: VALSARTAN 80 MG TAB PO SCH (09:00)
--- NOTE | 2017-04-26 09:44 | HHI.CCPN ---
Subjective Remarks/Hospital Course 04/12: 71-year-old male presents for evaluation after he fell hitting his head. Per family report they were in the bathroom trying to change his undergarments when he slipped and fell hitting his head. He is not on anticoagulant. The patient is pleasantly confused and patient's daughter states this is his baseline. He has had no altered mental status since the fall. No vomiting. The patient reports a mild headache without radiation. No neck pain or back pain. He has been ambulatory without difficulty since the fall. The CT head performed in the emergency department shows bilateral subdural hematomas in addition to parafalcine subdural hematoma, left frontal and temporal lobe intraparenchymal hemorrhages and subfalcine herniation from [id number]. 04/13: Resting in bed comfortably at the time of my evaluation this morning. Confused, does not know the year. Knows he is in the hospital. Moves all 4 extremity's. Does not appear to be in any acute distress. 04/14: Afebrile. The patient continues to be confused but easily following commands notable systolic ejection murmur, echo pending. Patient scheduled for neurosurgical intervention this afternoon. 04/15: Tmax 99.3. The patient status post craniotomy with evacuation of subdural hematoma last evening, remained intubated, only on sedation with propofol infusion and requiring low-dose phenylephrine to maintain map greater than 65. Sedation was briefly lightened last evening postoperatively, and the patient was extremely agitated. IV fluids changed from D5W to normal saline with [address] brain performed. INR pending. 04/16: Tmax 99.8 Patient agitated during the night , swinging his legs out of the bed while on maximum doses of propofol infusion, fentanyl infusion low-dose added this a.m. Patient's diet advance will begin tube feeds this a.m. The patient was noted to have multifocal PVCs intermittent during the night potassium level 3.2 currently being repleted with K-Phos. 04/17: Tmax 101.6. The patient underwent emergent craniotomy for evacuation of acute recurrent left subdural hematoma last evening. The patient continues on 3 % normal saline, with serial sodium and osmole is being followed. Currently weaning slowly sedation for neuro assessment. Patient noted to have a significant elevation in WBC count of 22, blood cultures urine cultures and sputum cultures obtained. Chest x-ray now showing bilateral lung opacities edema versus possible infectious process being ruled out. Echo revealed patient has severe aortic stenosis with a roommate mean gradient of 44. The patient continues on phenylephrine for vasopressors support at this time. 04/18: Last evening, the patient went into A. fib RVR, heart rate low 100s, with self resolution. This a.m. the patient continues to have sinus rhythm/sinus tachycardia 90-105 with frequent multifocal PVCs. Electrolytes within normal limits. Given the significant medical history for severe aortic stenosis metoprolol 2.5 mg IV for rapid heart rate instituted. The patient continues on phenylephrine infusion for maintenance of a map greater than 65. Propofol is currently being weaned off. EEG revealed last night severe encephalopathy. No change in neurological status but patient still is under sedation patient withdraws to pain bilateral lower extremities and now has spontaneous eye opening intermittently. Leukocytosis notably is resolving. 04/19: Afebrile. Today afternoon the patient was noted to have a seizure, Ativan 1 mg IV push with resolution EEG ordered. Post seizure the patient was noted to have gross hematuria. Coag studies performed within normal limits, fibrinogen level slightly elevated . Creatinine kinase noted to be within normal limits. Hematuria thought to possibly be secondary to acquired von Willebrand's factor secondary to the shear stress from his severe aortic stenosis. DDAVP 2 mcgs IV 1 dose ordered this a.m.. Patient continues on 3% sodium chloride, phenylephrine has been discontinued. 04/20: Remains sedated, orally intubated on mechanical ventilation. Remains on 3 % saline. Off phenylephrine currently. Blood pressure labile. Tolerating tube feeds. 04/21: Remains sedated, orally intubated on mechanical ventilation. Stopping 3% saline. Tolerating tube feeds 04/22: Remains sedated, orally intubated on mechanical ventilation. On Levophed for pressor support. Spiking temperatures. Started on Zosyn yesterday. Continues to have hematuria. One unit PRBCs and fluid bolus ordered. 04/23: Appears to have developed ADRIANNE from osmotic diuresis associated with poorly controlled diabetes. Hyperglycemia exacerbated by dextrose containing solution. Will start constant carb feedings with glucerna, reduce levemir, add SSI coverage, and hydrate to correct fluid depletion. 04/24: Continued serum concentration associated with free water loss. No improvement in neurological function. Suspect osmotic diuresis from elevated glucose but will check urine specific gravity to rule out DI. 04/25: Osmolality improving. Continue DDAVP prn. 04/26: Alertness much improved after Na corrected. Required DDAVP X 2. Gas exchange acceptable and he is strong on CPAP trial. Right arm edematous, ultrasound with no thrombus. Objective Vital Signs Date Time Temp Pulse Resp B/P (MAP) Pulse Ox O2 Delivery O2 Flow Rate FiO2 04/26/17 09:27 97 Nasal Cannula 4.00 04/26/17 08:03 35 04/26/17 06:00 78 04/26/17 04:00 99.3 18 141/69 (93) Intake and Output 04/26/17 04/26/17 04/27/17 08:00 16:00 00:00 Intake Total 1021 ml Output Total 830 ml Balance 191 ml Result Diagram: 04/25/17 0430 04/26/17 0725 Imaging Last Impressions Head CT 04/18/17 1200 Signed Impressions: Service Date/Time: Tuesday, April 18, 2017 13:04 - CONCLUSION: Stable acute subdural hematomas within the frontal regions bilaterally measuring 15 mm in greatest width on the left and 9 mm in greatest width on the right and resulting in 5 mm of subfalcine herniation to the right which is slightly improved compared to the previous examination. Left posterior parietal and tentorial subdural hematomas are stable also. Adriel Cherry MD Chest X-Ray 04/18/17 0600 Signed Impressions: Service Date/Time: Tuesday, April 18, 2017 03:37 - CONCLUSION: No significant change with persistent patchy bilateral lower lung zone opacity. David Meade MD Cervical Spine CT 04/12/17 0000 Signed Impressions: Service Date/Time: Wednesday, April 12, 2017 17:36 - CONCLUSION: Degenerative spondylosis without any significant compromise to the thecal sac or the exiting nerve roots. Maria Guadalupe Alvarado MD Last Impressions Chest X-Ray 04/17/17 0109 Signed Impressions: Service Date/Time: Monday, April 17, 2017 01:16 - CONCLUSION: 1. Right IJ central venous catheter in place with the tip in the region of proximal SVC. No evidence of pneumothorax. 2. Patchy bilateral lower lung zone opacity. David Meade MD Head CT 04/16/17 0000 Signed Impressions: Service Date/Time: April 21:08 - CONCLUSION: 1. Significant mass effect is now identified with herniation as described above. The findings of this study were discussed with Dr. Corral at 9: 2. 35 PM on April 16, 2017. Dharmesh Muhammad MD Cervical Spine CT 04/12/17 0000 Signed Impressions: Service Date/Time: Wednesday, April 12, 2017 17:36 - CONCLUSION: Degenerative spondylosis without any significant compromise to the thecal sac or the exiting nerve roots. Maria Guadalupe Alvarado MD Last Impressions Chest X-Ray 04/16/17599 Signed Impressions: Service Date/Time: April 04:50 - CONCLUSION: Lines and tubes. Clear lungs. Da Ramirez Jr., MD Head CT 04/15/17 06 Signed Impressions: Service Date/Time: Saturday, April 15, 2017 04:27 - CONCLUSION: 1. Interval left craniotomy with surgical drain placement. There is new diffuse subdural hematoma involving the left side beneath the craniotomy bone despite surgical drain placement. 2. Small subdural hemorrhage along the right frontal region. This is slightly larger from the prior study. 3. Reduction in size the midline shift. Da Ramirez Jr., MD Cervical Spine CT 04/12/17 0000 Signed Impressions: Service Date/Time: Wednesday, April 12, 2017 17:36 - CONCLUSION: Degenerative spondylosis without any significant compromise to the thecal sac or the exiting nerve roots. Maria Guadalupe Alvarado MD Last [address] 04/12/17 0000 Signed Impressions: Service Date/Time: Wednesday, April 12, 2017 17:36 - CONCLUSION: Bilateral subdural hematomas in addition to parafalcine subdural hematoma, left frontal and temporal lobe intraparenchymal hemorrhages and subfalcine herniation from [id number]. Maria Guadalupe Alvarado MD Cervical Spine CT 04/12/17 0000 Signed Impressions: Service Date/Time: Wednesday, April 12, 2017 17:36 - CONCLUSION: Degenerative spondylosis without any significant compromise to the thecal sac or the exiting nerve roots. Maria Guadalupe Alvarado MD Objective Remarks GENERAL: Elderly gentleman intubated. SKIN: Warm and dry. HEAD: Atraumatic. Normocephalic. EYES: Pupils equal and round. No scleral icterus. No injection or drainage. ENT: No nasal bleeding or discharge. Mucous membranes pink and moist. NECK: Trachea midline. Now orally intubated. CARDIOVASCULAR: Regular rate and rhythm. Harsh systolic murmur. No JVD. RESPIRATORY: No accessory muscle use. Clear. Breath sounds equal bilaterally. GASTROINTESTINAL: Abdomen soft, non-tender, nondistended. BS active, no guarding. MUSCULOSKELETAL: Extremities without clubbing, cyanosis. Right arm with gross edema. Well perfused. NEUROLOGICAL: Intubated, opens eyes, tracks today. Procedures 04/14-left frontoparietal craniotomy with evacuation of subacute on chronic SDH 04/17-@ 0000 emergent craniotomy with evacuation of acute recurrent left subdural hematoma Date of Insertion: Apr 13, 2017 A/P Assessment and Plan TBI -Subdural hematoma S/P Left frontoparietal craniotomy with evacuation of subacute on chronic SDH POD 6 S/P Emergency revision/evacuation of acute recurrent left subdural hematoma POD 4 -Neurosurgery following. Dr. Odom - Fentanyl gtt for agitation, attempt to wean off and utilize fentanyl only in the setting of patient with hypotension. Titrate off propofol. - Neuro checks per protocol - Daily sedation vacation - Repeat CT head per neurosurgery-stable acute subdural hematoma within frontal regions, bilateral 5 mm subfalcine herniation to the right - Seizure prophylaxis with Keppra -04/17-3% normal saline at 20 cc an hour. Stopping 3% saline on 04/21 due to sodium 157 -Monitor KWAME drainage. Repeat head CT plan for 04/23 with subsequent decision regarding SDH evacuation per Dr. Odom - 04/18 EEG-severe encephalopathy COPD Acute respiratory failure on mechanical ventilation - No exacerbation. No steroids indicated - Continue mechanical ventilation, vent bundle, bronchodilators. Daily C Pap trials. Patient lasted 6 hours on C Pap yesterday. - DuoNeb scheduled and when necessary - Chest x-rays and ABGs when clinically indicated Dementia - Hold Aricept- 2/2 QTc prolongation H/O Hypertension Severe Hypotension Sinus tachycardia -Hold all antihypertensives as patient is requiring Levophed for pressor support Continue Levophed gtt., added low-dose vasopressin on 04/22 to maintain MAP greater than 65 -12 EKG prolonged QT 475, continue close monitoring - 04/16 Echo-severe aortic stenosis EF 50- 55 % Severe left ventricular concentric hypertrophy, aortic mean gradient of 44 - Patient currently on phenylephrine at 50 mics, and tin you to wean as tolerated - Phenylephrine discontinued 03 AM on 04/19 - Repeat car shunter QTc- will hold Aricept and Zoloft which may be contributory Hematuria Munoz catheter changed per urology recommendations on 04/21. Dr. Woods following. May require CBI. Ordered 1 unit PRBCs on 04/22 for ongoing blood loss from hematuria with drop in hemoglobin and hypotension. Psychosis - Trazodone -on hold in 05/15 QTc prolongation - Zoloft-on hold Uncontrolled Diabetes mellitus - Hold metformin - Insulin sliding scale-high dose dose regimen, increase Levemir to 15 units every 12 hourly on 04/23 Diabetes Insipidus - Unable to get clear urine due to bladder bleed. - Responding well to DDAVP. Malnutrition - Continue tube feeds Glucerna 1.5 with goal 60cc/hr Septic shock Pneumonia Bacteremia 04/19-blood [id number] cocci 04/14 sets - contaminant 04/20 - Sputum cultures with GNRs, Zosyn started 04/21 -> will d/c 04/27 DVT GI prophylaxis - Teds SCDs - No pharmacological DVT prophylaxis due to subdural hematoma - Pepcid BID Further recommendations per neurosurgery. Overall impression: Stronger on CPAP trails - will try to extubate. Much more alert today. Roland Figueroa MD Apr 26, 2017 09:44
--- NOTE | 2017-04-26 09:45 | HHI.NSPN ---
History Chief Complaint: Unable to obtain due to patient's clinical condition. Interval History Interval History 04/12: Mr. Hope is a 71-year-old male who presented to the emergency room today after he fell at home in the presence of his daughter. She states that he lost his balance while trying to put some close on, and fell and struck his head. There was no loss of consciousness. No seizure activity or nausea or emesis reported. The patient has baseline dementia and confusion, but no definite overall change in his mentation after the fall earlier today, according to his daughter, who he lives with. He presently has no complaint of headache. He does have some chronic neck and back pain. 04/13: The patient was examined in the presence of the family today and a more detailed history has been obtained. They indicate chronic progressive dementia to the point that the patient has had to move in with his daughter earlier this year. He cannot care for himself. He is usually quite confused, conversing with only a few words or short sentences and unable to stay on task with conversations. He is usually very active, fidgeting constantly. They state that his mental status today is not significantly changed from his overall baseline. He did go to the emergency room a couple of weeks ago at [facility] due to some pressure sensation or frontal headaches and was diagnosed with sinus congestion. A CT scan of the head was not obtained. He has had no definite falls over the past few weeks up until yesterday. 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 Post-operatively he returned to [facility] for further care and monitoring. 04/15: This morning the patient is obtunded and has no sedation infusing. He does withdraw to noxious stimulation. He does not open his eyes but does have facial grimacing and turns his head to noxious stimulation. ADDENDUM at 1854: Patient was sedated with propofol 50 mcg/kg/min when seen, the pump was not visible at the time. BET. 04/16: When seen the patient is obtunded but does have the propofol drip infusing. Nursing reports that he moves all extremities but does become agitated when the propofol is weaned down. He moves all extremities to noxious stimulation when seen but did not follow any commands. 04/17: The patient remains obtunded and continues to be sedated with a propofol drip. He is now on phenylephrine for blood pressure support. He does not respond to commands and only withdraws the lower extremities to noxious stimulation. He does have some facial grimacing but no eye opening to noxious stimulation. He did go emergently late last night/early this morning for a revision of the left frontoparietal craniotomy for evacuation of a recurrent left hemisphere subdural haematoma. 04/18/17: intubated, propofol just turned off, intermittent movement to ext per nursing, not opening eyes. 04/19/17: nursing reports seizures yesterday, repeat CT head stable residual SDH and 5 mm midline shift. Awaiting EEG. 04/20: Patient with right eye partially opened when seen but Nursing just stimulated patient. He remains intubated and mechanically ventilated. He withdraws to noxious stimuli to the lower extremities but not the upper. He does have facial grimacing to noxious stimulation. Nursing reports that overnight KWAME #1 had 170 mL of yellowish drainage. She also says the patient has been off sedation approximately 36 hours. 04/21: The patient was examined in the presence of the family today and a more detailed history has been obtained. They indicate chronic progressive dementia to the point that the patient has had to move in with his daughter earlier this year. He cannot care for himself. He is usually quite confused, conversing with only a few words or short sentences and unable to stay on task with conversations. He is usually very active, fidgeting constantly. They state that his mental status today is not significantly changed from his overall baseline. He did go to the emergency room a couple of weeks ago at [facility] due to some pressure sensation or frontal headaches and was diagnosed with sinus congestion. A CT scan of the head was not obtained. He has had no definite falls over the past few weeks up until yesterday. 04/23: When seen the patient did have his eyes partially opened and he opened them wider to voice. He was moving the left upper and both lower extremities to varying degrees spontaneously. It was questionable if he moved the left lower to command but did move all extremities to noxious stimulation. 04/24: It is difficult to say if the patient was asleep when seen or not. It did appear he had his eyes partially open since Nursing was in the room. He did open them briefly to my voice. He spontaneously moved the left hand some and gripped this practitioner's hand. He moved the lower extremities to command. There was no noted movement of the right upper to noxious stimulation but he did have facial grimacing. 04/25: Patient is sedated but will respond to painful stimulation. 04/26: Patient now extubated and much more alert and responsive. He is not indicating any significant pain complaints. Exam Results Vital Signs Date Time Temp Pulse Resp B/P (MAP) Pulse Ox O2 Delivery O2 Flow Rate FiO2 04/26/17 09:27 97 Nasal Cannula 4.00 04/26/17 08:03 35 04/26/17 06:00 78 04/26/17 04:00 99.3 18 141/69 (93) Intake and Output 04/26/17 04/26/17 04/27/17 08:00 16:00 00:00 Intake Total 1021 ml Output Total 830 ml Balance 191 ml Physical Examination NEUROLOGICAL: Now awake and alert tracking to voice. Not verbalizing. He is following commands with the left upper extremity and the lower extremity bilaterally. No movement in the right upper extremity. Surgical incision is intact and healing well but there is significant leakage from the KWAME drain site despite the bulb being compressed. Lab, Micro, Other Results Laboratory Tests Test 04/26/17 07:25 Blood Urea Nitrogen 20 Creatinine 0.93 Random Glucose 146 Calcium Level 8.1 Sodium Level 147 Potassium Level 3.6 Chloride Level 112 Carbon Dioxide Level 28.8 Anion Gap 6 Estimat Glomerular Filtration Rate 80 Date/Time Source Procedure Growth Status 04/21/17 18:53 Blood Peripheral Aerobic Blood Culture - Preliminary NO GROWTH IN 4 DAYS Resulted 04/21/17 18:53 Blood Peripheral Anaerobic Blood Culture - Preliminary NO GROWTH IN 4 DAYS Resulted 04/20/17 13:30 Sputum Endotracheal Gram Stain - Final Complete 04/20/17 13:30 Sputum Culture - Final Escherichia Coli Klebsiella Pneumoniae Complete Medical Decision Making Impression and Plan Impression: 1. 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 Dementia 4. Cardiac murmur Patient now extubated and with improving neurological examination. Plan: Continue ICU observation and supportive care. KWAME drain was removed today. Cruz Blue MD Apr 26, 2017 09:45
[2017-04-26] MEDS: SODIUM CHLORIDE 23.4% INJ 38.5 MEQ in WATER STERILE FOR INJ 1,000 ML IV SCH (10:08)
[2017-04-26] MEDS: VASOPRESSIN INJ 40 UNITS in SODIUM CHLORIDE 0.9% INJ 98 ML IV SCH (14:00)
[2017-04-26] MEDS: MORPHINE SULFATE 2 MG/ML INJ IV PRN (20:54)
[2017-04-27] VITALS (12 sets, daily range): BP systolic 116–151; BP diastolic 55–87; PULSE 75–97; RESP 19–26; TEMP 97.9–98.3; O2SAT 97–99
[2017-04-27] MEDS: PIPERACIL-TAZO 4.5 GM PREMIX 100 ML IV SCH ×4 (00:44→17:48)
[2017-04-27] MEDS: SODIUM CHLORIDE 23.4% INJ 38.5 MEQ in WATER STERILE FOR INJ 1,000 ML IV SCH ×2 (03:35→06:19)
[2017-04-27] MEDS: CHLORHEXIDINE GLUCONATE 2 % 1 PACK (2 CLOTHS) TOP SCH ×2 (04:00→23:54)
[2017-04-27] MEDS: INSULIN ASPART SUPPLEMENTAL SCALE SQ SCH ×4 (05:09→17:48)
[2017-04-27] MEDS: DESMOPRESSIN ACETATE 4 MCG/ML VIAL IV PUSH PRN (05:09)
[2017-04-27 06:02] LABS: BICARBONATE 25.8 MEQ/L (21.0-32.0); CALCIUM 8.4 MG/DL (8.5-10.1); CREATININE 0.77 MG/DL (0.60-1.30)
[2017-04-27] MEDS: VASOPRESSIN INJ 40 UNITS in SODIUM CHLORIDE 0.9% INJ 98 ML IV SCH (06:40)
[2017-04-27] MEDS: FAMOTIDINE 20 MG/2 ML VIAL IV PUSH SCH ×2 (07:44→21:16)
[2017-04-27] MEDS: DOCUSATE SODIUM 50 MG/SENNA 8.6 MG TAB PO SCH ×2 (07:44→21:16)
[2017-04-27] MEDS: SODIUM CHLORIDE 0.9% FLUSH 10 ML FLUSH IV FLUSH SCH ×2 (07:44→21:00)
[2017-04-27] MEDS: levETIRAcetam INJ 500 MG in SODIUM CHLORIDE 0.9% INJ 100 ML IV SCH (07:44)
[2017-04-27] MEDS: INSULIN DETEMIR 100 UNITS/ML VIAL SQ SCH ×2 (07:45→21:00)
[2017-04-27] MEDS: MORPHINE SULFATE 2 MG/ML INJ IV PRN ×3 (07:45→18:09)
--- NOTE | 2017-04-27 08:38 | HHI.CCPN ---
Subjective Remarks/Hospital Course 04/12: 71-year-old male presents for evaluation after he fell hitting his head. Per family report they were in the bathroom trying to change his undergarments when he slipped and fell hitting his head. He is not on anticoagulant. The patient is pleasantly confused and patient's daughter states this is his baseline. He has had no altered mental status since the fall. No vomiting. The patient reports a mild headache without radiation. No neck pain or back pain. He has been ambulatory without difficulty since the fall. The CT head performed in the emergency department shows bilateral subdural hematomas in addition to parafalcine subdural hematoma, left frontal and temporal lobe intraparenchymal hemorrhages and subfalcine herniation from [id number]. 04/13: Resting in bed comfortably at the time of my evaluation this morning. Confused, does not know the year. Knows he is in the hospital. Moves all 4 extremity's. Does not appear to be in any acute distress. 04/14: Afebrile. The patient continues to be confused but easily following commands notable systolic ejection murmur, echo pending. Patient scheduled for neurosurgical intervention this afternoon. 04/15: Tmax 99.3. The patient status post craniotomy with evacuation of subdural hematoma last evening, remained intubated, only on sedation with propofol infusion and requiring low-dose phenylephrine to maintain map greater than 65. Sedation was briefly lightened last evening postoperatively, and the patient was extremely agitated. IV fluids changed from D5W to normal saline with [address] brain performed. INR pending. 04/16: Tmax 99.8 Patient agitated during the night , swinging his legs out of the bed while on maximum doses of propofol infusion, fentanyl infusion low-dose added this a.m. Patient's diet advance will begin tube feeds this a.m. The patient was noted to have multifocal PVCs intermittent during the night potassium level 3.2 currently being repleted with K-Phos. 04/17: Tmax 101.6. The patient underwent emergent craniotomy for evacuation of acute recurrent left subdural hematoma last evening. The patient continues on 3 % normal saline, with serial sodium and osmole is being followed. Currently weaning slowly sedation for neuro assessment. Patient noted to have a significant elevation in WBC count of 22, blood cultures urine cultures and sputum cultures obtained. Chest x-ray now showing bilateral lung opacities edema versus possible infectious process being ruled out. Echo revealed patient has severe aortic stenosis with a roommate mean gradient of 44. The patient continues on phenylephrine for vasopressors support at this time. 04/18: Last evening, the patient went into A. fib RVR, heart rate low 100s, with self resolution. This a.m. the patient continues to have sinus rhythm/sinus tachycardia 90-105 with frequent multifocal PVCs. Electrolytes within normal limits. Given the significant medical history for severe aortic stenosis metoprolol 2.5 mg IV for rapid heart rate instituted. The patient continues on phenylephrine infusion for maintenance of a map greater than 65. Propofol is currently being weaned off. EEG revealed last night severe encephalopathy. No change in neurological status but patient still is under sedation patient withdraws to pain bilateral lower extremities and now has spontaneous eye opening intermittently. Leukocytosis notably is resolving. 04/19: Afebrile. Today afternoon the patient was noted to have a seizure, Ativan 1 mg IV push with resolution EEG ordered. Post seizure the patient was noted to have gross hematuria. Coag studies performed within normal limits, fibrinogen level slightly elevated . Creatinine kinase noted to be within normal limits. Hematuria thought to possibly be secondary to acquired von Willebrand's factor secondary to the shear stress from his severe aortic stenosis. DDAVP 2 mcgs IV 1 dose ordered this a.m.. Patient continues on 3% sodium chloride, phenylephrine has been discontinued. 04/20: Remains sedated, orally intubated on mechanical ventilation. Remains on 3 % saline. Off phenylephrine currently. Blood pressure labile. Tolerating tube feeds. 04/21: Remains sedated, orally intubated on mechanical ventilation. Stopping 3% saline. Tolerating tube feeds 04/22: Remains sedated, orally intubated on mechanical ventilation. On Levophed for pressor support. Spiking temperatures. Started on Zosyn yesterday. Continues to have hematuria. One unit PRBCs and fluid bolus ordered. 04/23: Appears to have developed ADRIANNE from osmotic diuresis associated with poorly controlled diabetes. Hyperglycemia exacerbated by dextrose containing solution. Will start constant carb feedings with glucerna, reduce levemir, add SSI coverage, and hydrate to correct fluid depletion. 04/24: Continued serum concentration associated with free water loss. No improvement in neurological function. Suspect osmotic diuresis from elevated glucose but will check urine specific gravity to rule out DI. 04/25: Osmolality improving. Continue DDAVP prn. 04/26: Alertness much improved after Na corrected. Required DDAVP X 2. Gas exchange acceptable and he is strong on CPAP trial. Right arm edematous, ultrasound with no thrombus. 04/27: Extubated > 24 hours ago and breathing comfortably. Protects airway. Electrolytes normalized. Transfer. Objective Vital Signs Date Time Temp Pulse Resp B/P (MAP) Pulse Ox O2 Delivery O2 Flow Rate FiO2 04/27/17 07:50 26 04/27/17 07:00 Nasal Cannula 2.00 04/27/17 06:00 82 04/27/17 04:00 98.0 126/59 (81) 99 04/26/17 08:03 35 Intake and Output 04/27/17 04/27/17 04/28/17 08:00 16:00 00:00 Output Total 1750 ml Balance -1750 ml Result Diagram: 04/25/17 0430 04/27/17 0518 Imaging Last Impressions Head CT 04/18/17 1200 Signed Impressions: Service Date/Time: Tuesday, April 18, 2017 13:04 - CONCLUSION: Stable acute subdural hematomas within the frontal regions bilaterally measuring 15 mm in greatest width on the left and 9 mm in greatest width on the right and resulting in 5 mm of subfalcine herniation to the right which is slightly improved compared to the previous examination. Left posterior parietal and tentorial subdural hematomas are stable also. Adriel Cherry MD Chest X-Ray 04/18/17 0600 Signed Impressions: Service Date/Time: Tuesday, April 18, 2017 03:37 - CONCLUSION: No significant change with persistent patchy bilateral lower lung zone opacity. David Meade MD Cervical Spine CT 04/12/17 0000 Signed Impressions: Service Date/Time: Wednesday, April 12, 2017 17:36 - CONCLUSION: Degenerative spondylosis without any significant compromise to the thecal sac or the exiting nerve roots. Maria Guadalupe lAvarado MD Last Impressions Chest X-Ray 04/17/17 0109 Signed Impressions: Service Date/Time: Monday, April 17, 2017 01:16 - CONCLUSION: 1. Right IJ central venous catheter in place with the tip in the region of proximal SVC. No evidence of pneumothorax. 2. Patchy bilateral lower lung zone opacity. David Meade MD Head CT 04/16/17 Signed Impressions: Service Date/Time: April 21:08 - CONCLUSION: 1. Significant mass effect is now identified with herniation as described above. The findings of this study were discussed with Dr. Corral at 9: 2. 35 PM on April 16, 2017. Dharmesh Muhammad MD Cervical Spine CT 04/12/17 0000 Signed Impressions: Service Date/Time: Wednesday, April 12, 2017 17:36 - CONCLUSION: Degenerative spondylosis without any significant compromise to the thecal sac or the exiting nerve roots. Maria Guadalupe Alvarado MD Last Impressions Chest X-Ray 04/16/17599 Signed Impressions: Service Date/Time: April 04:50 - CONCLUSION: Lines and tubes. Clear lungs. Da Ramirez Jr., MD Head CT 04/15/17 06 Signed Impressions: Service Date/Time: Saturday, April 15, 2017 04:27 - CONCLUSION: 1. Interval left craniotomy with surgical drain placement. There is new diffuse subdural hematoma involving the left side beneath the craniotomy bone despite surgical drain placement. 2. Small subdural hemorrhage along the right frontal region. This is slightly larger from the prior study. 3. Reduction in size the midline shift. Da Ramirez Jr., MD Cervical Spine CT 04/12/17 0000 Signed Impressions: Service Date/Time: Wednesday, April 12, 2017 17:36 - CONCLUSION: Degenerative spondylosis without any significant compromise to the thecal sac or the exiting nerve roots. Maria Guadalupe Alvarado MD Last [address] 04/12/17 0000 Signed Impressions: Service Date/Time: Wednesday, April 12, 2017 17:36 - CONCLUSION: Bilateral subdural hematomas in addition to parafalcine subdural hematoma, left frontal and temporal lobe intraparenchymal hemorrhages and subfalcine herniation from [id number]. Maria Guadalupe Alvarado MD Cervical Spine CT 04/12/17 0000 Signed Impressions: Service Date/Time: Wednesday, April 12, 2017 17:36 - CONCLUSION: Degenerative spondylosis without any significant compromise to the thecal sac or the exiting nerve roots. Maria Guadalupe Alvarado MD Objective Remarks GENERAL: Elderly gentleman intubated. SKIN: Warm and dry. HEAD: Atraumatic. Normocephalic. EYES: Pupils equal and round. No scleral icterus. No injection or drainage. ENT: No nasal bleeding or discharge. Mucous membranes pink and moist. NECK: Trachea midline. Airway widely patent. CARDIOVASCULAR: Regular rate and rhythm. Harsh systolic murmur. No JVD. RESPIRATORY: No accessory muscle use. Clear. Breath sounds equal bilaterally. GASTROINTESTINAL: Abdomen soft, non-tender, nondistended. BS active, no guarding. MUSCULOSKELETAL: Extremities without clubbing, cyanosis. Right arm with gross edema. No clot on US. Well perfused. NEUROLOGICAL: Moves 4 limbs spontaneously. opens eyes, tracks today. Procedures 04/14-left frontoparietal craniotomy with evacuation of subacute on chronic SDH 04/17-@ 0000 emergent craniotomy with evacuation of acute recurrent left subdural hematoma Date of Insertion: Apr 13, 2017 A/P Assessment and Plan TBI -Subdural hematoma S/P Left frontoparietal craniotomy with evacuation of subacute on chronic SDH POD 6 S/P Emergency revision/evacuation of acute recurrent left subdural hematoma POD 4 -Neurosurgery following. Dr. Odom - Fentanyl gtt for agitation, attempt to wean off and utilize fentanyl only in the setting of patient with hypotension. Titrate off propofol. - Neuro checks per protocol - Daily sedation vacation - Repeat CT head per neurosurgery-stable acute subdural hematoma within frontal regions, bilateral 5 mm subfalcine herniation to the right - Seizure prophylaxis with Keppra -04/17-3% normal saline at 20 cc an hour. Stopping 3% saline on 04/21 due to sodium 157 -Monitor KWAME drainage. Repeat head CT plan for 04/23 with subsequent decision regarding SDH evacuation per Dr. Odom - 04/18 EEG-severe encephalopathy COPD Acute respiratory failure on mechanical ventilation - No exacerbation. No steroids indicated - Continue mechanical ventilation, vent bundle, bronchodilators. Daily C Pap trials. Patient lasted 6 hours on C Pap yesterday. - DuoNeb scheduled and when necessary - Chest x-rays and ABGs when clinically indicated - Extubated 04/26. Dementia - Hold Aricept- 2/2 QTc prolongation H/O Hypertension Severe Hypotension Sinus tachycardia -Hold all antihypertensives as patient is requiring Levophed for pressor support Continue Levophed gtt., added low-dose vasopressin on 04/22 to maintain MAP greater than 65 -/2 EKG prolonged QT 475, continue close monitoring - 04/16 Echo-severe aortic stenosis EF 50- 55 % Severe left ventricular concentric hypertrophy, aortic mean gradient of 44 - Patient currently on phenylephrine at 50 mics, and tin you to wean as tolerated - Phenylephrine discontinued 03 AM on 04/19 - Repeat electronic device monitor QTc- will hold Aricept and Zoloft which may be contributory Hematuria Munoz catheter changed per urology recommendations on 04/21. Dr. Woods following. May require CBI. Ordered 1 unit PRBCs on 04/22 for ongoing blood loss from hematuria with drop in hemoglobin and hypotension. Psychosis - Trazodone -on hold in 05/15 QTc prolongation - Zoloft-on hold Uncontrolled Diabetes mellitus - Hold metformin - Insulin sliding scale-high dose dose regimen, increase Levemir to 15 units every 12 hourly on 04/23 Diabetes Insipidus - Unable to get clear urine due to bladder bleed. - Responding well to DDAVP. Malnutrition - Continue tube feeds Glucerna 1.5 with goal 60cc/hr Septic shock Pneumonia Bacteremia 04/19-blood [id number] cocci 04/14 sets - contaminant 04/20 - Sputum cultures with GNRs, Zosyn started 04/21 -> will d/c 04/27 DVT GI prophylaxis - Teds SCDs - No pharmacological DVT prophylaxis due to subdural hematoma - Pepcid BID Further recommendations per neurosurgery. Overall impression: Tolerating extubation. Much more alert today. Roland Figueroa MD Apr 27, 2017 08:38
[2017-04-27] MEDS: TOLTERODINE TARTRATE 4 MG CAP LA PO SCH (09:00)
[2017-04-27] MEDS: VALSARTAN 80 MG TAB PO SCH (09:00)
[2017-04-27] MEDS: PRAVASTATIN SOD 40 MG TAB PO SCH (09:00)
[2017-04-27] MEDS: GABAPENTIN 400 MG CAP PO SCH ×3 (09:00→17:48)
--- NOTE | 2017-04-27 10:21 | HHI.NSPN ---
(Lacoh Lacey Betsey JOSEPH) History Chief Complaint: Unable to obtain due to patient's clinical condition. (Lacho Lacey COMPUTER NUMERIC CONTROL SETTER) Interval History 04/12: Mr. Hope is a 71-year-old male who presented to the emergency room today after he fell at home in the presence of his daughter. She states that he lost his balance while trying to put some close on, and fell and struck his head. There was no loss of consciousness. No seizure activity or nausea or emesis reported. The patient has baseline dementia and confusion, but no definite overall change in his mentation after the fall earlier today, according to his daughter, who he lives with. He presently has no complaint of headache. He does have some chronic neck and back pain. 04/13: The patient was examined in the presence of the family today and a more detailed history has been obtained. They indicate chronic progressive dementia to the point that the patient has had to move in with his daughter earlier this year. He cannot care for himself. He is usually quite confused, conversing with only a few words or short sentences and unable to stay on task with conversations. He is usually very active, fidgeting constantly. They state that his mental status today is not significantly changed from his overall baseline. He did go to the emergency room a couple of weeks ago at [facility] due to some pressure sensation or frontal headaches and was diagnosed with sinus congestion. A CT scan of the head was not obtained. He has had no definite falls over the past few weeks up until yesterday. 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 Post-operatively he returned to [facility] for further care and monitoring. 04/15: This morning the patient is obtunded and has no sedation infusing. He does withdraw to noxious stimulation. He does not open his eyes but does have facial grimacing and turns his head to noxious stimulation. ADDENDUM at 1854: Patient was sedated with propofol 50 mcg/kg/min when seen, the pump was not visible at the time. BET. 04/16: When seen the patient is obtunded but does have the propofol drip infusing. Nursing reports that he moves all extremities but does become agitated when the propofol is weaned down. He moves all extremities to noxious stimulation when seen but did not follow any commands. 04/17: The patient remains obtunded and continues to be sedated with a propofol drip. He is now on phenylephrine for blood pressure support. He does not respond to commands and only withdraws the lower extremities to noxious stimulation. He does have some facial grimacing but no eye opening to noxious stimulation. He did go emergently late last night/early this morning for a revision of the left frontoparietal craniotomy for evacuation of a recurrent left hemisphere subdural haematoma. 04/18/17: intubated, propofol just turned off, intermittent movement to ext per nursing, not opening eyes. 04/19/17: nursing reports seizures yesterday, repeat CT head stable residual SDH and 5 mm midline shift. Awaiting EEG. 04/20: Patient with right eye partially opened when seen but Nursing just stimulated patient. He remains intubated and mechanically ventilated. He withdraws to noxious stimuli to the lower extremities but not the upper. He does have facial grimacing to noxious stimulation. Nursing reports that overnight KWAME #1 had 170 mL of yellowish drainage. She also says the patient has been off sedation approximately 36 hours. 04/21: The patient was examined in the presence of the family today and a more detailed history has been obtained. They indicate chronic progressive dementia to the point that the patient has had to move in with his daughter earlier this year. He cannot care for himself. He is usually quite confused, conversing with only a few words or short sentences and unable to stay on task with conversations. He is usually very active, fidgeting constantly. They state that his mental status today is not significantly changed from his overall baseline. He did go to the emergency room a couple of weeks ago at [facility] due to some pressure sensation or frontal headaches and was diagnosed with sinus congestion. A CT scan of the head was not obtained. He has had no definite falls over the past few weeks up until yesterday. 04/23: When seen the patient did have his eyes partially opened and he opened them wider to voice. He was moving the left upper and both lower extremities to varying degrees spontaneously. It was questionable if he moved the left lower to command but did move all extremities to noxious stimulation. 04/24: It is difficult to say if the patient was asleep when seen or not. It did appear he had his eyes partially open since Nursing was in the room. He did open them briefly to my voice. He spontaneously moved the left hand some and gripped this practitioner's hand. He moved the lower extremities to command. There was no noted movement of the right upper to noxious stimulation but he did have facial grimacing. 04/25: Patient is sedated but will respond to painful stimulation. 04/26: Patient now extubated and much more alert and responsive. He is not indicating any significant pain complaints. 04/27: This morning the patient's eyes are open. He did squeeze to command with the left hand and had withdrawal of the other extremities to noxious stimulation. He has been extubated but is nonverbal. He has mild respiratory effort on a nasal cannula. (Lacho Lacey) System Review Comments Unable to obtain due to patient's clinical condition. (Lacho Lacey) Exam Results 04/25/17 04/25/17 04/26/17 04/26/17 04/27/17 04/27/17 06:00 18:00 06:00 18:00 06:00 18:00 Intake Total 5647 ml 2696 ml 1021 ml 1200 ml 100 ml Output Total 2800 ml 1975 ml 1630 ml 2500 ml 1750 ml Balance 2847 ml 721 ml -609 ml -1300 ml -1750 ml 100 ml IV Total 4197 ml 1400 ml 1200 ml 100 ml Tube Feeding 676 ml 521 ml Packed Cells 800 ml Other 650 ml 620 ml 500 ml Output Urine Total 2750 ml 1900 ml 1600 ml 2500 ml 1750 ml Gastric Drainage Total 0 ml Tube Feeding Residual Discard 0 ml 0 ml Drainage Total 50 ml 75 ml 30 ml # Bowel Movements 4 2 Vital Signs Date Time Temp Pulse Resp B/P (MAP) Pulse Ox O2 Delivery O2 Flow Rate FiO2 04/27/17 08:00 97.9 84 25 139/65 (89) 99 04/27/17 08:00 90 04/27/17 07:50 26 04/27/17 07:13 98 Nasal Cannula 2.00 04/27/17 07:00 Nasal Cannula 2.00 1/15/18 06:00 82 04/27/17 04:00 98.0 82 24 126/59 (81) 99 04/27/17 04:00 83 04/27/17 02:00 83 04/27/17 00:00 75 04/27/17 00:00 98.3 75 26 116/55 (75) 99 04/26/17 22:36 99 Nasal Cannula 2.00 04/26/17 22:00 77 04/26/17 20:00 80 04/26/17 20:00 97 Nasal Cannula 2.00 04/26/17 20:00 97.7 76 28 138/63 (88) 97 04/26/17 16:00 84 04/26/17 16:00 99.3 84 28 129/63 (85) 97 04/26/17 16:00 97 Nasal Cannula 2.00 04/26/17 12:00 99.0 96 26 136/63 (87) 99 04/26/17 12:00 96 04/26/17 09:27 97 Nasal Cannula 4.00 04/26/17 09:27 97 Nasal Cannula 4 04/26/17 09:25 99 Nasal Cannula 4.00 04/26/17 08:03 96 35 04/26/17 08:03 Nasal Cannula 35 04/26/17 08:00 78 04/26/17 08:00 35 04/26/17 08:00 98.7 78 22 131/84 (100) 97 04/26/17 06:00 78 04/26/17 05:00 99 35 04/26/17 04:00 72 04/26/17 04:00 35 04/26/17 04:00 99.3 72 18 141/69 (93) 97 04/26/17 02:00 73 04/26/17 00:40 99 35 04/26/17 00:00 35 04/26/17 00:00 98.2 78 18 127/60 (82) 98 04/26/17 00:00 78 04/25/17 22:00 84 04/25/17 21:00 35 04/25/17 20:50 98 35 04/25/17 20:00 81 04/25/17 20:00 98.8 81 27 131/63 (85) 100 04/25/17 20:00 35 04/25/17 16:04 97 35 04/25/17 16:00 83 04/25/17 16:00 98.8 83 23 126/60 (82) 04/25/17 12:51 99 35 04/25/17 12:00 84 04/25/17 12:00 98.4 84 28 155/69 (97) 96 Arterial Line 04/25/17 10:04 97 35 04/25/17 08:00 99.3 104 28 157/66 (96) 97 04/25/17 08:00 104 04/25/17 08:00 35 04/25/17 07:10 100 35 04/25/17 07:10 35 04/25/17 06:00 75 04/25/17 04:31 100 35 04/25/17 04:00 70 04/25/17 04:00 35 04/25/17 04:00 98.8 70 16 149/61 (90) 100 04/25/17 02:13 98.7 75 17 132/57 100 04/25/17 02:00 75 04/25/17 00:49 100 35 04/25/17 00:00 74 04/25/17 00:00 35 04/25/17 00:00 98.9 74 17 119/42 (67) 100 04/24/17 23:52 98.9 85 20 117/44 100 04/24/17 22:00 94 04/24/17 20:00 102 04/24/17 20:00 35 04/24/17 20:00 99.4 102 20 143/57 (85) 98 04/24/17 20:00 99 40 04/24/17 17:27 99 40 04/24/17 16:00 102 04/24/17 16:00 99.6 102 17 150/60 (90) 99 04/24/17 12:26 98 40 04/24/17 12:25 40 04/24/17 12:00 98.9 97 33 135/57 (83) 98 04/24/17 12:00 97 (Lacho Lacey) Physical Examination GENERAL: Awake, no sedation, mild respiratory effort but no apparent distress. HEENT: Left craniotomy surgical incision well approximated with gilles, PERRLA 3mm reactive. Erosion of the philtrum. MUSCULOSKELETAL: No clubbing or deformity evident. NEUROLOGICAL: Awake. Spontaneous eye opening. Nonverbal. Facial grimacing to noxious stimulation. Slight hand squeeze with left hand. Moved RUE & BLE to local noxious stimulation. (Lacho Lacey) Lab, Micro, Other Results Recent Impressions Chest X-Ray 04/26/17 0400 Signed Impressions: Service Date/Time: Wednesday, April 26, 2017 04:12 - CONCLUSION: No significant interval change. Zeferino Hewitt MD Upper Extremity Ultrasound 04/25/17 0000 Signed Impressions: Service Date/Time: Tuesday, April 25, 2017 11:44 - CONCLUSION: No evidence of right upper extremity DVT. David Meade MD Laboratory Tests Test 04/24/17 13:35 04/25/17 04:30 04/26/17 07:25 04/27/17 05:18 Potassium Level 3.6 MEQ/L 3.4 MEQ/L 3.6 MEQ/L 4.1 MEQ/L White Blood Count 11.5 TH/MM3 Red Blood Count 3.31 MIL/MM3 Hemoglobin 9.5 GM/DL Hematocrit 28.3 % Mean Corpuscular Volume 85.6 FL Mean Corpuscular Hemoglobin 28.8 PG Mean Corpuscular Hemoglobin Concent 33.7 % Red Cell Distribution Width 16.9 % Platelet Count 224 TH/MM3 Mean Platelet Volume 8.0 FL Neutrophils (%) (Auto) 90.7 % Lymphocytes (%) (Auto) 4.7 % Monocytes (%) (Auto) 3.2 % Eosinophils (%) (Auto) 1.3 % Basophils (%) (Auto) 0.1 % Neutrophils # (Auto) 10.5 TH/MM3 Lymphocytes # (Auto) 0.5 TH/MM3 Monocytes # (Auto) 0.4 TH/MM3 Eosinophils # (Auto) 0.2 TH/MM3 Basophils # (Auto) 0.0 TH/MM3 CBC Comment AUTO DIFF Differential Comment AUTO DIFF CONFIRMED Ovalocytes 1+ Blood Urea Nitrogen 27 MG/DL 20 MG/DL 15 MG/DL Creatinine 1.03 MG/DL 0.93 MG/DL 0.77 MG/DL Random Glucose 182 MG/DL 146 MG/DL 122 MG/DL Calcium Level 7.8 MG/DL 8.1 MG/DL 8.4 MG/DL Magnesium Level 2.1 MG/DL Sodium Level 156 MEQ/L 147 MEQ/L 144 MEQ/L Chloride Level 124 MEQ/L 112 MEQ/L 109 MEQ/L Carbon Dioxide Level 27.5 MEQ/L 28.8 MEQ/L 25.8 MEQ/L Anion Gap 5 MEQ/L 6 MEQ/L 9 MEQ/L Estimat Glomerular Filtration Rate 71 ML/MIN 80 ML/MIN 100 ML/MIN (Lacho Lacey) Medical Decision Making Impression and Plan Impression: 1. 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 Dementia 4. Cardiac murmur Patient awake this morning. Did follow commands w/LUE and moved RUE & BLE to noxious stimulation. Prognosis guarded. Reviewed labs for today. Renal function normal. Blood cultures no growth x5 days, final. CT brain demonstrated mild improvement in the left subdural haematoma collection but no significant change to the right. EEG consistent w/severe encephalopathy. KWAME #1 was removed . KWAME #2 removed . POD #13 () s/p: Left frontoparietal craniotomy for evacuation of subacute on chronic subdural hematoma Postoperative Diagnosis: (1) Subdural hematoma, chronic (2) Acute subdural hematoma 1. Left hemisphere subacute on chronic subdural hematoma 2. Acute right frontal subdural hematoma POD #10 () s/p: Revision left frontoparietal craniotomy evacuation of recurrent left hemisphere subdural hematoma Postoperative Diagnosis: (1) Acute subdural hematoma Recurrent left hemisphere subdural hematoma Plan: Primary management per Offshoring Manager. Neuro checks. Repeat CT brain for any decline in neuro status. Mechanical DVT prophylaxis. Hold pharmacologic DVT prophylaxis. Stress ulcer prophylaxis. Will discontinue levetiracetam. CT brain this morning. Patient is able to be transferred to a regular med/surg floor from Neurosurgery' s perspective if CT is stable. (Lacho Lacey) Attending Statement The exam, history, and the medical decision-making described in the above note were completed with the assistance of the mid-level provider. I reviewed and agree with the findings presented. I attest that I had a [id number] encounter with the patient on the same day, and personally performed and documented my assessment and findings in the medical record. On my examination 04/27/2017 the patient is relatively alert. The drain has been discontinued Incision site dry Tracking to the left greater than right with his eyes. Right hemiparesis Intermittently purposeful left upper extremity and appears to grasp slightly to command on the left. Plan follow-up CT scan head today (Sylvester Odom MD) Lacho Lacey Apr 27, 2017 10:21 Sylvester Odom MD Apr 27, 2017 11:34
--- NOTE | 2017-04-27 11:44 | RADRPT ---
EXAM DATE/TIME: 04/27/2017 11:04 [facility] COMPARISON: CT BRAIN W/O CONTRAST, April 23, 2017, 11:04. INDICATIONS : Follow up subdural RADIATION DOSE: 69.15 CTDIvol (mGy) MEDICAL HISTORY : Cardiovascular disease. Chronic obstructive pulmonary disease. Carcinoma, prostate.Diabetes SURGICAL HISTORY : Craniotomy. ENCOUNTER: Subsequent ACUITY: 1 day PAIN SCALE: Non-responsive LOCATION: cranial TECHNIQUE: Multiple contiguous axial images were obtained of the head. Using automated exposure control and adj ustment of the mA and/or kV according to patient size, radiation dose was kept as low as reasonably a chievable to obtain optimal diagnostic quality images. DICOM format image data is available electro nically for review and comparison. FINDINGS: The examination demonstrates interval removal of the patient's subdural drain. There is minimal subdu ral remaining along the anterior aspect of the left frontal cortex. This is decreased in size when co mpared to previous. There is a small amount hygroma is fluid seen along the right parietal cortices. No significant midline shift or other findings to indicate mass effect are identified. The appearance of the posterior fossa is unremarkable There are postsurgical changes within the skull. CONCLUSION: 1. Interval removal of the patient's subdural drain. There is still a small amount of subdural hemorr wendy remaining along the left frontal cortex. The remainder of the hemorrhage along the parietal is n o longer identified. Findings were discussed in detail above. Luis Moreno MD on April 27, 2017 at 11:38 Board Certified Radiologist. This report was verified electronically.
[2017-04-28] VITALS (8 sets, daily range): BP systolic 94–131; BP diastolic 51–64; PULSE 91–114; RESP 23–30; TEMP 97.8–98.6; O2SAT 94–96
[2017-04-28] MEDS: INSULIN ASPART SUPPLEMENTAL SCALE SQ SCH ×4 (00:12→17:30)
[2017-04-28] MEDS: MORPHINE SULFATE 2 MG/ML INJ IV PRN (01:02)
[2017-04-28 04:38] LABS: BICARBONATE 27.6 MEQ/L (21.0-32.0); CALCIUM 8.7 MG/DL (8.5-10.1); CREATININE 0.93 MG/DL (0.60-1.30)
[2017-04-28] MEDS: POTASSIUM CHLORIDE 25 MEQ EFFERVESCENT TAB PO PRN (04:45)
--- NOTE | 2017-04-28 07:45 | HHI.CCPN ---
Subjective Remarks/Hospital Course 04/12: 71-year-old male presents for evaluation after he fell hitting his head. Per family report they were in the bathroom trying to change his undergarments when he slipped and fell hitting his head. He is not on anticoagulant. The patient is pleasantly confused and patient's daughter states this is his baseline. He has had no altered mental status since the fall. No vomiting. The patient reports a mild headache without radiation. No neck pain or back pain. He has been ambulatory without difficulty since the fall. The CT head performed in the emergency department shows bilateral subdural hematomas in addition to parafalcine subdural hematoma, left frontal and temporal lobe intraparenchymal hemorrhages and subfalcine herniation from [id number]. 04/13: Resting in bed comfortably at the time of my evaluation this morning. Confused, does not know the year. Knows he is in the hospital. Moves all 4 extremity's. Does not appear to be in any acute distress. 04/14: Afebrile. The patient continues to be confused but easily following commands notable systolic ejection murmur, echo pending. Patient scheduled for neurosurgical intervention this afternoon. 04/15: Tmax 99.3. The patient status post craniotomy with evacuation of subdural hematoma last evening, remained intubated, only on sedation with propofol infusion and requiring low-dose phenylephrine to maintain map greater than 65. Sedation was briefly lightened last evening postoperatively, and the patient was extremely agitated. IV fluids changed from D5W to normal saline with [address] brain performed. INR pending. 04/16: Tmax 99.8 Patient agitated during the night , swinging his legs out of the bed while on maximum doses of propofol infusion, fentanyl infusion low-dose added this a.m. Patient's diet advance will begin tube feeds this a.m. The patient was noted to have multifocal PVCs intermittent during the night potassium level 3.2 currently being repleted with K-Phos. 04/17: Tmax 101.6. The patient underwent emergent craniotomy for evacuation of acute recurrent left subdural hematoma last evening. The patient continues on 3 % normal saline, with serial sodium and osmole is being followed. Currently weaning slowly sedation for neuro assessment. Patient noted to have a significant elevation in WBC count of 22, blood cultures urine cultures and sputum cultures obtained. Chest x-ray now showing bilateral lung opacities edema versus possible infectious process being ruled out. Echo revealed patient has severe aortic stenosis with a roommate mean gradient of 44. The patient continues on phenylephrine for vasopressors support at this time. 04/18: Last evening, the patient went into A. fib RVR, heart rate low 100s, with self resolution. This a.m. the patient continues to have sinus rhythm/sinus tachycardia 90-105 with frequent multifocal PVCs. Electrolytes within normal limits. Given the significant medical history for severe aortic stenosis metoprolol 2.5 mg IV for rapid heart rate instituted. The patient continues on phenylephrine infusion for maintenance of a map greater than 65. Propofol is currently being weaned off. EEG revealed last night severe encephalopathy. No change in neurological status but patient still is under sedation patient withdraws to pain bilateral lower extremities and now has spontaneous eye opening intermittently. Leukocytosis notably is resolving. 04/19: Afebrile. Today afternoon the patient was noted to have a seizure, Ativan 1 mg IV push with resolution EEG ordered. Post seizure the patient was noted to have gross hematuria. Coag studies performed within normal limits, fibrinogen level slightly elevated . Creatinine kinase noted to be within normal limits. Hematuria thought to possibly be secondary to acquired von Willebrand's factor secondary to the shear stress from his severe aortic stenosis. DDAVP 2 mcgs IV 1 dose ordered this a.m.. Patient continues on 3% sodium chloride, phenylephrine has been discontinued. 04/20: Remains sedated, orally intubated on mechanical ventilation. Remains on 3 % saline. Off phenylephrine currently. Blood pressure labile. Tolerating tube feeds. 04/21: Remains sedated, orally intubated on mechanical ventilation. Stopping 3% saline. Tolerating tube feeds 04/22: Remains sedated, orally intubated on mechanical ventilation. On Levophed for pressor support. Spiking temperatures. Started on Zosyn yesterday. Continues to have hematuria. One unit PRBCs and fluid bolus ordered. 04/23: Appears to have developed ADRIANNE from osmotic diuresis associated with poorly controlled diabetes. Hyperglycemia exacerbated by dextrose containing solution. Will start constant carb feedings with glucerna, reduce levemir, add SSI coverage, and hydrate to correct fluid depletion. 04/24: Continued serum concentration associated with free water loss. No improvement in neurological function. Suspect osmotic diuresis from elevated glucose but will check urine specific gravity to rule out DI. 04/25: Osmolality improving. Continue DDAVP prn. 04/26: Alertness much improved after Na corrected. Required DDAVP X 2. Gas exchange acceptable and he is strong on CPAP trial. Right arm edematous, ultrasound with no thrombus. 04/27: Extubated > 24 hours ago and breathing comfortably. Protects airway. Electrolytes normalized. Transfer. 04/28: Tolerating extubation but respiratory rate increased, not labored. Osmolality normalized off of DDAVP. Objective Vital Signs Date Time Temp Pulse Resp B/P (MAP) Pulse Ox O2 Delivery O2 Flow Rate FiO2 04/28/17 07:28 95 Nasal Cannula 1.00 04/28/17 04:00 107 04/28/17 04:00 98.0 26 114/58 (76) 04/26/17 08:03 35 Intake and Output 04/28/17 04/28/17 04/29/17 08:00 16:00 00:00 Intake Total 690 ml Output Total 400 ml Balance 290 ml Result Diagram: 04/25/17 0430 04/28/17 0358 Imaging Last Impressions Head CT 04/18/17 1200 Signed Impressions: Service Date/Time: Tuesday, April 18, 2017 13:04 - CONCLUSION: Stable acute subdural hematomas within the frontal regions bilaterally measuring 15 mm in greatest width on the left and 9 mm in greatest width on the right and resulting in 5 mm of subfalcine herniation to the right which is slightly improved compared to the previous examination. Left posterior parietal and tentorial subdural hematomas are stable also. Adriel Cherry MD Chest X-Ray 04/18/17 0600 Signed Impressions: Service Date/Time: Tuesday, April 18, 2017 03:37 - CONCLUSION: No significant change with persistent patchy bilateral lower lung zone opacity. David Meade MD Cervical Spine CT 04/12/17 0000 Signed Impressions: Service Date/Time: Wednesday, April 12, 2017 17:36 - CONCLUSION: Degenerative spondylosis without any significant compromise to the thecal sac or the exiting nerve roots. Maria Guadalupe Alvarado MD Last Impressions Chest X-Ray 04/17/17 0109 Signed Impressions: Service Date/Time: Monday, April 17, 2017 01:16 - CONCLUSION: 1. Right IJ central venous catheter in place with the tip in the region of proximal SVC. No evidence of pneumothorax. 2. Patchy bilateral lower lung zone opacity. David Meade MD Head CT 04/16/17 0000 Signed Impressions: Service Date/Time: April 21:08 - CONCLUSION: 1. Significant mass effect is now identified with herniation as described above. The findings of this study were discussed with Dr. Corral at 9: 2. 35 PM on April 16, 2017. Dharmesh Muhammad MD Cervical Spine CT 04/12/17 0000 Signed Impressions: Service Date/Time: Wednesday, April 12, 2017 17:36 - CONCLUSION: Degenerative spondylosis without any significant compromise to the thecal sac or the exiting nerve roots. Maria Guadalupe Alvarado MD Last Impressions Chest X-Ray 04/16/17 0600 Signed Impressions: Service Date/Time: April 04:50 - CONCLUSION: Lines and tubes. Clear lungs. Da Ramirez Jr., MD Head CT 04/15/17 0600 Signed Impressions: Service Date/Time: Saturday, April 15, 2017 04:27 - CONCLUSION: 1. Interval left craniotomy with surgical drain placement. There is new diffuse subdural hematoma involving the left side beneath the craniotomy bone despite surgical drain placement. 2. Small subdural hemorrhage along the right frontal region. This is slightly larger from the prior study. 3. Reduction in size the midline shift. Da Ramirez Jr., MD Cervical Spine CT 04/12/17 0000 Signed Impressions: Service Date/Time: Wednesday, April 12, 2017 17:36 - CONCLUSION: Degenerative spondylosis without any significant compromise to the thecal sac or the exiting nerve roots. Maria Guadalupe Alvarado MD Last [address] 04/12/17 0000 Signed Impressions: Service Date/Time: Wednesday, April 12, 2017 17:36 - CONCLUSION: Bilateral subdural hematomas in addition to parafalcine subdural hematoma, left frontal and temporal lobe intraparenchymal hemorrhages and subfalcine herniation from [id number]. Maria Guadalupe Alvarado MD Cervical Spine CT 04/12/17 0000 Signed Impressions: Service Date/Time: Wednesday, April 12, 2017 17:36 - CONCLUSION: Degenerative spondylosis without any significant compromise to the thecal sac or the exiting nerve roots. Maria Guadalupe Alvarado MD Objective Remarks GENERAL: Elderly gentleman, minimally responsive. SKIN: Warm and dry. HEAD: Atraumatic. Normocephalic. EYES: Pupils equal and round. No scleral icterus. No injection or drainage. ENT: No nasal bleeding or discharge. Mucous membranes pink and moist. NECK: Trachea midline. Airway widely patent. CARDIOVASCULAR: Regular rate and rhythm. Harsh systolic murmur. No JVD. RESPIRATORY: No accessory muscle use. Clear. Breath sounds equal bilaterally. GASTROINTESTINAL: Abdomen soft, non-tender, nondistended. BS active, no guarding. MUSCULOSKELETAL: Extremities without clubbing, cyanosis. Right arm with gross edema. No clot on US. Well perfused. NEUROLOGICAL: Moves 4 limbs spontaneously. opens eyes, does not track today. Procedures 04/14-left frontoparietal craniotomy with evacuation of subacute on chronic SDH 04/17-@ 0000 emergent craniotomy with evacuation of acute recurrent left subdural hematoma Date of Insertion: Apr 13, 2017 A/P Assessment and Plan TBI -Subdural hematoma S/P Left frontoparietal craniotomy with evacuation of subacute on chronic SDH S/P Emergency revision/evacuation of acute recurrent left subdural hematoma -Neurosurgery following. Dr. Odom - Fentanyl gtt for agitation, attempt to wean off and utilize fentanyl only in the setting of patient with hypotension. Titrate off propofol. - Neuro checks per protocol - Daily sedation vacation - Repeat CT head per neurosurgery-stable acute subdural hematoma within frontal regions, bilateral 5 mm subfalcine herniation to the right - Seizure prophylaxis with Keppra -04/17-3% normal saline at 20 cc an hour. Stopping 3% saline on 04/21 due to sodium 157 -Monitor KWAME drainage. Repeat head CT plan for 04/23 with subsequent decision regarding SDH evacuation per Dr. Odom - 04/18 EEG-severe encephalopathy COPD Acute respiratory failure on mechanical ventilation - No exacerbation. No steroids indicated - Continue mechanical ventilation, vent bundle, bronchodilators. Daily C Pap trials. Patient lasted 6 hours on C Pap yesterday. - DuoNeb scheduled and when necessary - Chest x-rays and ABGs when clinically indicated - Extubated 04/26. 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 Dr. Woods following. May require CBI. PRBCs on 04/22 for ongoing blood loss from hematuria with drop in hemoglobin and hypotension. Psychosis - Trazodone -on hold in 05/15 QTc prolongation - Zoloft-on hold Uncontrolled Diabetes mellitus - Hold metformin - Insulin sliding scale-high dose dose regimen, increase Levemir to 15 units every 12 hourly on 04/23 Diabetes Insipidus - Unable to get clear urine due to bladder bleed. - Responding well to DDAVP, now stopped 04/28. Malnutrition - Continue tube feeds Glucerna 1.5 with goal 60cc/hr Septic shock Pneumonia Bacteremia 04/19-blood [id number] cocci 04/14 sets - contaminant 04/20 - Sputum cultures with GNRs, Zosyn started 04/21 -> will d/c 04/27 DVT GI prophylaxis - Teds SCDs - No pharmacological DVT prophylaxis due to subdural hematoma - Pepcid BID Further recommendations per neurosurgery. Overall impression: Tolerating extubation. Needs rehab placement or SNF. Roland Figueroa MD Apr 28, 2017 07:44
[2017-04-28] MEDS ORDERED: FUROSEMIDE 40 MG/4 ML VIAL IV PUSH ONE (08:15)
[2017-04-28] MEDS: INSULIN DETEMIR 100 UNITS/ML VIAL SQ SCH ×2 (08:44→22:00)
[2017-04-28] MEDS: VALSARTAN 80 MG TAB PO SCH (08:45)
[2017-04-28] MEDS: POTASSIUM CHLOR 20 MEQ PREMIX 100 ML IV SCH ×2 (08:45→11:00)
[2017-04-28] MEDS: GABAPENTIN 400 MG CAP PO SCH ×3 (08:45→17:30)
[2017-04-28] MEDS: PRAVASTATIN SOD 40 MG TAB PO SCH (08:45)
[2017-04-28] MEDS: FAMOTIDINE 20 MG/2 ML VIAL IV PUSH SCH ×2 (08:46→21:58)
[2017-04-28] MEDS: DOCUSATE SODIUM 50 MG/SENNA 8.6 MG TAB PO SCH ×2 (09:00→21:58)
[2017-04-28] MEDS: SODIUM CHLORIDE 0.9% FLUSH 10 ML FLUSH IV FLUSH SCH ×2 (09:00→21:59)
[2017-04-28] MEDS: TOLTERODINE TARTRATE 4 MG CAP LA PO SCH (09:00)
--- NOTE | 2017-04-28 09:21 | HHI.NSPN ---
(Lacho Lacey Betsey JOSEPH) History Chief Complaint: Unable to obtain due to patient's clinical condition. (Lacho Lacey LEGAL PROJECT MANAGER) Interval History 04/12: Mr. Hope is a 71-year-old male who presented to the emergency room today after he fell at home in the presence of his daughter. She states that he lost his balance while trying to put some close on, and fell and struck his head. There was no loss of consciousness. No seizure activity or nausea or emesis reported. The patient has baseline dementia and confusion, but no definite overall change in his mentation after the fall earlier today, according to his daughter, who he lives with. He presently has no complaint of headache. He does have some chronic neck and back pain. 04/13: The patient was examined in the presence of the family today and a more detailed history has been obtained. They indicate chronic progressive dementia to the point that the patient has had to move in with his daughter earlier this year. He cannot care for himself. He is usually quite confused, conversing with only a few words or short sentences and unable to stay on task with conversations. He is usually very active, fidgeting constantly. They state that his mental status today is not significantly changed from his overall baseline. He did go to the emergency room a couple of weeks ago at [facility] due to some pressure sensation or frontal headaches and was diagnosed with sinus congestion. A CT scan of the head was not obtained. He has had no definite falls over the past few weeks up until yesterday. 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 Post-operatively he returned to [facility] for further care and monitoring. 04/15: This morning the patient is obtunded and has no sedation infusing. He does withdraw to noxious stimulation. He does not open his eyes but does have facial grimacing and turns his head to noxious stimulation. ADDENDUM at 1854: Patient was sedated with propofol 50 mcg/kg/min when seen, the pump was not visible at the time. BET. 04/16: When seen the patient is obtunded but does have the propofol drip infusing. Nursing reports that he moves all extremities but does become agitated when the propofol is weaned down. He moves all extremities to noxious stimulation when seen but did not follow any commands. 04/17: The patient remains obtunded and continues to be sedated with a propofol drip. He is now on phenylephrine for blood pressure support. He does not respond to commands and only withdraws the lower extremities to noxious stimulation. He does have some facial grimacing but no eye opening to noxious stimulation. He did go emergently late last night/early this morning for a revision of the left frontoparietal craniotomy for evacuation of a recurrent left hemisphere subdural haematoma. 04/18/17: intubated, propofol just turned off, intermittent movement to ext per nursing, not opening eyes. 04/19/17: nursing reports seizures yesterday, repeat CT head stable residual SDH and 5 mm midline shift. Awaiting EEG. 04/20: Patient with right eye partially opened when seen but Nursing just stimulated patient. He remains intubated and mechanically ventilated. He withdraws to noxious stimuli to the lower extremities but not the upper. He does have facial grimacing to noxious stimulation. Nursing reports that overnight KWAME #1 had 170 mL of yellowish drainage. She also says the patient has been off sedation approximately 36 hours. 04/21: The patient was examined in the presence of the family today and a more detailed history has been obtained. They indicate chronic progressive dementia to the point that the patient has had to move in with his daughter earlier this year. He cannot care for himself. He is usually quite confused, conversing with only a few words or short sentences and unable to stay on task with conversations. He is usually very active, fidgeting constantly. They state that his mental status today is not significantly changed from his overall baseline. He did go to the emergency room a couple of weeks ago at [facility] due to some pressure sensation or frontal headaches and was diagnosed with sinus congestion. A CT scan of the head was not obtained. He has had no definite falls over the past few weeks up until yesterday. 04/23: When seen the patient did have his eyes partially opened and he opened them wider to voice. He was moving the left upper and both lower extremities to varying degrees spontaneously. It was questionable if he moved the left lower to command but did move all extremities to noxious stimulation. 04/24: It is difficult to say if the patient was asleep when seen or not. It did appear he had his eyes partially open since Nursing was in the room. He did open them briefly to my voice. He spontaneously moved the left hand some and gripped this practitioner's hand. He moved the lower extremities to command. There was no noted movement of the right upper to noxious stimulation but he did have facial grimacing. 04/25: Patient is sedated but will respond to painful stimulation. 04/26: Patient now extubated and much more alert and responsive. He is not indicating any significant pain complaints. 04/27: This morning the patient's eyes are open. He did squeeze to command with the left hand and had withdrawal of the other extremities to noxious stimulation. He has been extubated but is nonverbal. He has mild respiratory effort on a nasal cannula. 04/28: When seen this morning the patient is lethargic. He did not open his eyes to voice or follow any commands. He did have slight withdrawal of the left upper and both lower extremities to noxious stimulation. He did have facial grimacing to noxious stimulation as well. (Lacho Lacey) System Review Comments Unable to obtain due to patient's clinical condition. (Lacho Lacey) Exam Results 04/26/17 04/26/17 04/27/17 04/27/17 04/28/17 04/28/17 06:00 18:00 06:00 18:00 06:00 18:00 Intake Total 1021 ml 1200 ml 320 ml 790 ml Output Total 1630 ml 2500 ml 1750 ml 1075 ml 400 ml Balance -609 ml -1300 ml -1750 ml -755 ml 390 ml IV Total 1200 ml 200 ml 100 ml Tube Feeding 521 ml 60 ml 590 ml Other 500 ml 60 ml 100 ml Output Urine Total 1600 ml 2500 ml 1750 ml 400 ml Tube Feeding Residual Discard 0 ml Drainage Total 30 ml Hemodialysis 1075 ml # Bowel Movements 4 2 0 0 Vital Signs Date Time Temp Pulse Resp B/P (MAP) Pulse Ox O2 Delivery O2 Flow Rate FiO2 04/28/17 07:28 95 Nasal Cannula 1.00 04/28/17 04:00 107 04/28/17 04:00 98.0 107 26 114/58 (76) 96 04/28/17 01:07 20 04/28/17 00:00 91 04/28/17 00:00 97.9 91 23 131/64 (86) 96 04/27/17 22:00 92 04/27/17 20:44 97 Nasal Cannula 1.00 04/27/17 20:00 98.2 90 19 149/87 (107) 98 04/27/17 20:00 90 04/27/17 20:00 98 Nasal Cannula 2.00 04/27/17 16:00 98.1 97 24 151/70 (97) 98 04/27/17 15:00 89 04/27/17 12:00 98.1 84 23 137/60 (85) 97 04/27/17 08:00 97.9 84 25 139/65 (89) 99 04/27/17 08:00 90 04/27/17 07:13 98 Nasal Cannula 2.00 04/27/17 07:00 Nasal Cannula 2.00 04/27/17 06:00 82 04/27/17 04:00 98.0 82 24 126/59 (81) 99 04/27/17 04:00 83 04/27/17 02:00 83 04/27/17 00:00 75 04/27/17 00:00 98.3 75 26 116/55 (75) 99 04/26/17 22:36 99 Nasal Cannula 2.00 04/26/17 22:00 77 04/26/17 20:00 80 04/26/17 20:00 97 Nasal Cannula 2.00 04/26/17 20:00 97.7 76 28 138/63 (88) 97 04/26/17 16:00 84 04/26/17 16:00 99.3 84 28 129/63 (85) 97 04/26/17 16:00 97 Nasal Cannula 2.00 04/26/17 12:00 99.0 96 26 136/63 (87) 99 04/26/17 12:00 96 04/26/17 09:27 97 Nasal Cannula 4.00 04/26/17 09:27 97 Nasal Cannula 4 04/26/17 09:25 99 Nasal Cannula 4.00 04/26/17 08:03 96 35 04/26/17 08:03 Nasal Cannula 35 04/26/17 08:00 78 04/26/17 08:00 35 04/26/17 08:00 98.7 78 22 131/84 (100) 97 04/26/17 06:00 78 04/26/17 05:00 99 35 04/26/17 04:00 72 04/26/17 04:00 35 04/26/17 04:00 99.3 72 18 141/69 (93) 97 04/26/17 02:00 73 04/26/17 00:40 99 35 04/26/17 00:00 35 04/26/17 00:00 98.2 78 18 127/60 (82) 98 04/26/17 00:00 78 04/25/17 22:00 84 04/25/17 21:00 35 04/25/17 20:50 98 35 04/25/17 20:00 81 04/25/17 20:00 98.8 81 27 131/63 (85) 100 04/25/17 20:00 35 04/25/17 16:04 97 35 04/25/17 16:00 83 04/25/17 16:00 98.8 83 23 126/60 (82) 04/25/17 12:51 99 35 04/25/17 12:00 84 04/25/17 12:00 98.4 84 28 155/69 (97) 96 Arterial Line 04/25/17 10:04 97 35 (Lacho Lacey) Physical Examination GENERAL: Lethargic, no sedation infusing, nonlaboured respiratory effort, no apparent distress. HEENT: Left craniotomy surgical incision well approximated with gilles. PERRLA 3mm reactive. NGT left nare. Erosion of the philtrum. MUSCULOSKELETAL: No clubbing or deformity evident. NEUROLOGICAL: Lethargic, w/o any sedation infusing. No eye opening to any stimulation. Nonverbal. Facial grimacing to all noxious stimulation. Moved LUE & BLE to local noxious stimulation but not the right. No motor response to central noxious stimulation. (Lacho Lacey) Lab, Micro, Other Results Recent Impressions Head CT 04/27/17 0000 Signed Impressions: Service Date/Time: Thursday, April 27, 2017 11:04 - CONCLUSION: 1. Interval removal of the patient's subdural drain. There is still a small amount of subdural hemorrhage remaining along the left frontal cortex. The remainder of the hemorrhage along the parietal is no longer identified. Findings were discussed in detail above. Luis Moreno MD Chest X-Ray 04/26/17 0400 Signed Impressions: Service Date/Time: Wednesday, April 26, 2017 04:12 - CONCLUSION: No significant interval change. Zeferino Hewitt MD Laboratory Tests Test 04/26/17 07:25 04/27/17 05:18 04/28/17 03:58 Blood Urea Nitrogen 20 MG/DL 15 MG/DL 16 MG/DL Creatinine 0.93 MG/DL 0.77 MG/DL 0.93 MG/DL Random Glucose 146 MG/DL 122 MG/DL 211 MG/DL Calcium Level 8.1 MG/DL 8.4 MG/DL 8.7 MG/DL Sodium Level 147 MEQ/L 144 MEQ/L 143 MEQ/L Potassium Level 3.6 MEQ/L 4.1 MEQ/L 3.4 MEQ/L Chloride Level 112 MEQ/L 109 MEQ/L 108 MEQ/L Carbon Dioxide Level 28.8 MEQ/L 25.8 MEQ/L 27.6 MEQ/L Anion Gap 6 MEQ/L 9 MEQ/L 7 MEQ/L Estimat Glomerular Filtration Rate 80 ML/MIN 100 ML/MIN 80 ML/MIN (Lacho Lacey) Medical Decision Making Impression and Plan Impression: 1. 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 Dementia 4. Cardiac murmur Patient lethargic, not following commands, moves LUE & BLE to noxious stimulation. Prognosis still guarded. Reviewed labs for today. Sodium 143. Hypokalemia. Interval decrease in renal function. CT brain demonstrated minimal left frontal subdural haematoma, right parietal cortices hygroma, no significant change. EEG consistent w/severe encephalopathy. KWAME #1 was removed . KWAME #2 removed . POD #14 () s/p: Left frontoparietal craniotomy for evacuation of subacute on chronic subdural hematoma Postoperative Diagnosis: (1) Subdural hematoma, chronic (2) Acute subdural hematoma 1. Left hemisphere subacute on chronic subdural hematoma 2. Acute right frontal subdural hematoma POD #11 () s/p: Revision left frontoparietal craniotomy evacuation of recurrent left hemisphere subdural hematoma Postoperative Diagnosis: (1) Acute subdural hematoma Recurrent left hemisphere subdural hematoma Plan: Primary management per Mannequin Decorator. Neuro checks. Repeat CT brain for any decline in neuro status. Mechanical DVT prophylaxis. Hold pharmacologic DVT prophylaxis. Stress ulcer prophylaxis. Patient is able to be transferred to a regular med/surg floor from Neurosurgery' s perspective. (Lacho Lacey) Attending Statement The exam, history, and the medical decision-making described in the above note were completed with the assistance of the mid-level provider. I reviewed and agree with the findings presented. I attest that I had a [id number] encounter with the patient on the same day, and personally performed and documented my assessment and findings in the medical record. The patient is awake and relatively alert on my examination today. He seems to try to mouth words occasionally, but otherwise no attempts at verbalizing. He grasps his left hand occasionally to command. Mild flexion to moderate stimulation right upper extremity but not following commands on the right. Appears to have mild to moderate right hemiparesis. The incision is healing well CT scan 04/27/17 images reviewed by the undersigned and reveal relatively mild bilateral frontal subdural hematoma without significant mass effect. No significant parenchymal contusion. No evidence of infarction. Discussed at length with the patient's daughter on the telephone this evening. Continue to mobilize out of bed with therapy. Continue speech and occupational therapy. He will need to transition towards inpatient rehabilitation within the next week. (Sylvester Odom MD) Lacho Lacey Apr 28, 2017 09:21 Sylvester Odom MD Apr 28, 2017 20:33
[2017-04-28] MEDS: METOPROLOL TARTRATE 25 MG TAB PO SCH ×2 (10:08→21:58)
[2017-04-29] VITALS (8 sets, daily range): BP systolic 118–130; BP diastolic 56–89; PULSE 95–123; RESP 22–28; TEMP 97.2–99.2; O2SAT 92–98
[2017-04-29] MEDS: INSULIN ASPART SUPPLEMENTAL SCALE SQ SCH ×5 (00:26→23:26)
[2017-04-29] MEDS: CHLORHEXIDINE GLUCONATE 2 % 1 PACK (2 CLOTHS) TOP SCH (03:22)
[2017-04-29 06:24] LABS: BICARBONATE 30.3 MEQ/L (21.0-32.0); CALCIUM 8.9 MG/DL (8.5-10.1); CREATININE 0.68 MG/DL (0.60-1.30)
--- NOTE | 2017-04-29 08:18 | HHI.CCPN ---
Subjective Remarks/Hospital Course 04/12: 71-year-old male presents for evaluation after he fell hitting his head. Per family report they were in the bathroom trying to change his undergarments when he slipped and fell hitting his head. He is not on anticoagulant. The patient is pleasantly confused and patient's daughter states this is his baseline. He has had no altered mental status since the fall. No vomiting. The patient reports a mild headache without radiation. No neck pain or back pain. He has been ambulatory without difficulty since the fall. The CT head performed in the emergency department shows bilateral subdural hematomas in addition to parafalcine subdural hematoma, left frontal and temporal lobe intraparenchymal hemorrhages and subfalcine herniation from [id number]. 04/13: Resting in bed comfortably at the time of my evaluation this morning. Confused, does not know the year. Knows he is in the hospital. Moves all 4 extremity's. Does not appear to be in any acute distress. 04/14: Afebrile. The patient continues to be confused but easily following commands notable systolic ejection murmur, echo pending. Patient scheduled for neurosurgical intervention this afternoon. 04/15: Tmax 99.3. The patient status post craniotomy with evacuation of subdural hematoma last evening, remained intubated, only on sedation with propofol infusion and requiring low-dose phenylephrine to maintain map greater than 65. Sedation was briefly lightened last evening postoperatively, and the patient was extremely agitated. IV fluids changed from D5W to normal saline with [address] brain performed. INR pending. 04/16: Tmax 99.8 Patient agitated during the night , swinging his legs out of the bed while on maximum doses of propofol infusion, fentanyl infusion low-dose added this a.m. Patient's diet advance will begin tube feeds this a.m. The patient was noted to have multifocal PVCs intermittent during the night potassium level 3.2 currently being repleted with K-Phos. 04/17: Tmax 101.6. The patient underwent emergent craniotomy for evacuation of acute recurrent left subdural hematoma last evening. The patient continues on 3 % normal saline, with serial sodium and osmole is being followed. Currently weaning slowly sedation for neuro assessment. Patient noted to have a significant elevation in WBC count of 22, blood cultures urine cultures and sputum cultures obtained. Chest x-ray now showing bilateral lung opacities edema versus possible infectious process being ruled out. Echo revealed patient has severe aortic stenosis with a roommate mean gradient of 44. The patient continues on phenylephrine for vasopressors support at this time. 04/18: Last evening, the patient went into A. fib RVR, heart rate low 100s, with self resolution. This a.m. the patient continues to have sinus rhythm/sinus tachycardia 90-105 with frequent multifocal PVCs. Electrolytes within normal limits. Given the significant medical history for severe aortic stenosis metoprolol 2.5 mg IV for rapid heart rate instituted. The patient continues on phenylephrine infusion for maintenance of a map greater than 65. Propofol is currently being weaned off. EEG revealed last night severe encephalopathy. No change in neurological status but patient still is under sedation patient withdraws to pain bilateral lower extremities and now has spontaneous eye opening intermittently. Leukocytosis notably is resolving. 04/19: Afebrile. Today afternoon the patient was noted to have a seizure, Ativan 1 mg IV push with resolution EEG ordered. Post seizure the patient was noted to have gross hematuria. Coag studies performed within normal limits, fibrinogen level slightly elevated . Creatinine kinase noted to be within normal limits. Hematuria thought to possibly be secondary to acquired von Willebrand's factor secondary to the shear stress from his severe aortic stenosis. DDAVP 2 mcgs IV 1 dose ordered this a.m.. Patient continues on 3% sodium chloride, phenylephrine has been discontinued. 04/20: Remains sedated, orally intubated on mechanical ventilation. Remains on 3 % saline. Off phenylephrine currently. Blood pressure labile. Tolerating tube feeds. 04/21: Remains sedated, orally intubated on mechanical ventilation. Stopping 3% saline. Tolerating tube feeds 04/22: Remains sedated, orally intubated on mechanical ventilation. On Levophed for pressor support. Spiking temperatures. Started on Zosyn yesterday. Continues to have hematuria. One unit PRBCs and fluid bolus ordered. 04/23: Appears to have developed ADRIANNE from osmotic diuresis associated with poorly controlled diabetes. Hyperglycemia exacerbated by dextrose containing solution. Will start constant carb feedings with glucerna, reduce levemir, add SSI coverage, and hydrate to correct fluid depletion. 04/24: Continued serum concentration associated with free water loss. No improvement in neurological function. Suspect osmotic diuresis from elevated glucose but will check urine specific gravity to rule out DI. 04/25: Osmolality improving. Continue DDAVP prn. 04/26: Alertness much improved after Na corrected. Required DDAVP X 2. Gas exchange acceptable and he is strong on CPAP trial. Right arm edematous, ultrasound with no thrombus. 04/27: Extubated > 24 hours ago and breathing comfortably. Protects airway. Electrolytes normalized. Transfer. 04/28: Tolerating extubation but respiratory rate increased, not labored. Osmolality normalized off of DDAVP. 04/29: more somnolent today, but still awake and following commands. sodium mp from 143 to 147 off DDAVP. will restart free water. ROS unobtainable due to patient's baseline mental status. 3-way contreras persists, less hematuria noted. Cr continues to improve. remains stable for transfer to floor. Objective Vital Signs Date Time Temp Pulse Resp B/P (MAP) Pulse Ox O2 Delivery O2 Flow Rate FiO2 04/29/17 04:00 98.6 95 23 96 04/29/17 00:00 118/64 (82) 04/28/17 20:21 Nasal Cannula 1.00 04/26/17 08:03 35 Intake and Output 04/29/17 04/29/17 04/30/17 08:00 16:00 00:00 Intake Total 650 ml Output Total 400 ml Balance 250 ml Result Diagram: 04/25/17 0430 04/29/17 0438 Imaging Last Impressions Head CT 04/18/17 1200 Signed Impressions: Service Date/Time: Tuesday, April 18, 2017 13:04 - CONCLUSION: Stable acute subdural hematomas within the frontal regions bilaterally measuring 15 mm in greatest width on the left and 9 mm in greatest width on the right and resulting in 5 mm of subfalcine herniation to the right which is slightly improved compared to the previous examination. Left posterior parietal and tentorial subdural hematomas are stable also. Adriel Cherry MD Chest X-Ray 04/18/17 0600 Signed Impressions: Service Date/Time: Tuesday, April 18, 2017 03:37 - CONCLUSION: No significant change with persistent patchy bilateral lower lung zone opacity. David Meade MD Cervical Spine CT 04/12/17 0000 Signed Impressions: Service Date/Time: Wednesday, April 12, 2017 17:36 - CONCLUSION: Degenerative spondylosis without any significant compromise to the thecal sac or the exiting nerve roots. Maria Guadalupe Alvarado MD Last Impressions Chest X-Ray 04/17/17 0109 Signed Impressions: Service Date/Time: Monday, April 17, 2017 01:16 - CONCLUSION: 1. Right IJ central venous catheter in place with the tip in the region of proximal SVC. No evidence of pneumothorax. 2. Patchy bilateral lower lung zone opacity. David Meade MD Head CT 04/16/17 0000 Signed Impressions: Service Date/Time: April 21:08 - CONCLUSION: 1. Significant mass effect is now identified with herniation as described above. The findings of this study were discussed with Dr. Corral at 9: 2. 35 PM on April 16, 2017. Dharmesh Muhammad MD Cervical Spine CT 04/12/17 0000 Signed Impressions: Service Date/Time: Wednesday, April 12, 2017 17:36 - CONCLUSION: Degenerative spondylosis without any significant compromise to the thecal sac or the exiting nerve roots. Maria Guadalupe Alvarado MD Last Impressions Chest X-Ray 04/16/17 0600 Signed Impressions: Service Date/Time: April 04:50 - CONCLUSION: Lines and tubes. Clear lungs. Da Ramirez Jr., MD Head CT 04/15/17 0600 Signed Impressions: Service Date/Time: Saturday, April 15, 2017 04:27 - CONCLUSION: 1. Interval left craniotomy with surgical drain placement. There is new diffuse subdural hematoma involving the left side beneath the craniotomy bone despite surgical drain placement. 2. Small subdural hemorrhage along the right frontal region. This is slightly larger from the prior study. 3. Reduction in size the midline shift. Da Ramriez Jr., MD Cervical Spine CT 04/12/17 0000 Signed Impressions: Service Date/Time: Wednesday, April 12, 2017 17:36 - CONCLUSION: Degenerative spondylosis without any significant compromise to the thecal sac or the exiting nerve roots. Maria Guadalupe Alvarado MD Last [address] 04/12/17 0000 Signed Impressions: Service Date/Time: Wednesday, April 12, 2017 17:36 - CONCLUSION: Bilateral subdural hematomas in addition to parafalcine subdural hematoma, left frontal and temporal lobe intraparenchymal hemorrhages and subfalcine herniation from [id number]. Maria Guadalupe Alvarado MD Cervical Spine CT 04/12/17 0000 Signed Impressions: Service Date/Time: Wednesday, April 12, 2017 17:36 - CONCLUSION: Degenerative spondylosis without any significant compromise to the thecal sac or the exiting nerve roots. Maria Guadalupe Alvarado MD Objective Remarks GENERAL: Elderly gentleman, minimally responsive. SKIN: Warm and dry. HEAD: Atraumatic. Normocephalic. EYES: Pupils equal and round. No scleral icterus. No injection or drainage. ENT: No nasal bleeding or discharge. Mucous membranes pink and moist. NECK: Trachea midline. Airway widely patent. CARDIOVASCULAR: Regular rate and rhythm. RESPIRATORY: No accessory muscle use. GASTROINTESTINAL: Abdomen soft, non-tender, nondistended, no guarding. MUSCULOSKELETAL: Extremities without clubbing, cyanosis. Right arm with gross edema. NEUROLOGICAL: Moves 4 limbs spontaneously. opens eyes, tracks. follows some simple commands. Procedures 1/2-left frontoparietal craniotomy with evacuation of subacute on chronic SDH 04/17-@ 0000 emergent craniotomy with evacuation of acute recurrent left subdural hematoma A/P Assessment and Plan Assessment: 71yM with traumatic intracranial hemorrhage now clinically improving. encephalopathy persists and is slow to clear. hematuria resolving. central diabetes insipidus slowly resolving. will continue free water replacement and daily sodium checks. stable for floor transfer. still some ongoing medical problems which require treatment. TBI -Subdural hematoma S/P Left frontoparietal craniotomy with evacuation of subacute on chronic SDH S/P Emergency revision/evacuation of acute recurrent left subdural hematoma Acute encephalopathy- resolving slowly -Neurosurgery following. Dr. Odom - Neuro checks per protocol - Repeat CT head per neurosurgery-stable acute subdural hematoma within frontal regions, bilateral 5 mm subfalcine herniation to the right - Seizure prophylaxis with Keppra -Monitor KWAME drainage. - 04/18 EEG-severe encephalopathy avoid long-acting sedating meds continue home gabapentin. COPD Acute hypoxic and hypercarbic respiratory failure - resolving. - No exacerbation. No steroids indicated - DuoNeb scheduled and when necessary - Chest x-rays and ABGs when clinically indicated - Extubated 04/26. - aggressive pulmonary toilet. Dementia - Hold Aricept- / QTc prolongation Severe Hypotension- -resolved. Sinus tachycardia- resolved. -04/14 EKG prolonged QT 475, continue close monitoring - 04/16 Echo-severe aortic stenosis EF 50- 55 % Severe left ventricular concentric hypertrophy, aortic mean gradient of 44 - Repeat monitoring specialist QTc- will hold Aricept and Zoloft which may be contributory Hematuria Contreras catheter changed per urology recommendations on 04/21. Dr. Woods following. currently on CBI. clearer urine today. PRBCs on 04/22 for ongoing blood loss from hematuria with drop in hemoglobin and hypotension. Psychosis - Trazodone -on hold in 05/15 QTc prolongation - Zoloft-on hold Diabetes mellitus - improved control. - Hold metformin - Insulin sliding scale-high dose dose regimen, increase Levemir to 15 units every 12 hourly on 04/23 Central Diabetes Insipidus - Unable to get clear urine due to bladder bleed. - Responding well to DDAVP, now stopped 04/28. - restart free water 300mL po q4h - daily bmp to check sodium Acute protein calorie Malnutrition - severe - Continue tube feeds Glucerna 1.5 with goal 60cc/hr Septic shock- resolved. Pneumonia - resolved. Bacteremia- resolved. 04/19-blood [id number] cocci 04/14 sets - contaminant 04/20 - Sputum cultures with e. coli, klebisella. s/p full course of Zosyn 04/21 - . monitor off abx for fever, signs of infection. DVT GI prophylaxis - Teds SCDs - No pharmacological DVT prophylaxis due to subdural hematoma - Pepcid BID Further recommendations per neurosurgery. Overall impression: Tolerating extubation. Needs rehab placement or SNF. still has some ongoing medical issues. stable for floor transfer. Ronen Archer MD Apr 29, 2017 08:18
[2017-04-29] MEDS: VALSARTAN 80 MG TAB PO SCH (09:00)
[2017-04-29] MEDS: SODIUM CHLORIDE 0.9% FLUSH 10 ML FLUSH IV FLUSH SCH ×2 (09:00→23:25)
[2017-04-29] MEDS: TOLTERODINE TARTRATE 4 MG CAP LA PO SCH (09:00)
[2017-04-29] MEDS: GABAPENTIN 400 MG CAP PO SCH ×3 (09:00→18:00)
[2017-04-29] MEDS: DOCUSATE SODIUM 50 MG/SENNA 8.6 MG TAB PO SCH ×2 (09:00→21:00)
[2017-04-29] MEDS: INSULIN DETEMIR 100 UNITS/ML VIAL SQ SCH ×2 (09:00→23:26)
[2017-04-29] MEDS: FAMOTIDINE 20 MG/2 ML VIAL IV PUSH SCH ×2 (09:00→23:26)
[2017-04-29] MEDS: METOPROLOL TARTRATE 25 MG TAB PO SCH ×2 (09:00→23:25)
[2017-04-29] MEDS: PRAVASTATIN SOD 40 MG TAB PO SCH (09:00)
--- NOTE | 2017-04-29 09:06 | HHI.NSPN ---
(Lacho Lacey Betsey JOSEPH) History Chief Complaint: Unable to obtain due to patient's clinical condition. (Lacho Lacey BELT WORKER) Interval History 04/12: Mr. Hope is a 71-year-old male who presented to the emergency room today after he fell at home in the presence of his daughter. She states that he lost his balance while trying to put some close on, and fell and struck his head. There was no loss of consciousness. No seizure activity or nausea or emesis reported. The patient has baseline dementia and confusion, but no definite overall change in his mentation after the fall earlier today, according to his daughter, who he lives with. He presently has no complaint of headache. He does have some chronic neck and back pain. 04/13: The patient was examined in the presence of the family today and a more detailed history has been obtained. They indicate chronic progressive dementia to the point that the patient has had to move in with his daughter earlier this year. He cannot care for himself. He is usually quite confused, conversing with only a few words or short sentences and unable to stay on task with conversations. He is usually very active, fidgeting constantly. They state that his mental status today is not significantly changed from his overall baseline. He did go to the emergency room a couple of weeks ago at [facility] due to some pressure sensation or frontal headaches and was diagnosed with sinus congestion. A CT scan of the head was not obtained. He has had no definite falls over the past few weeks up until yesterday. 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 Post-operatively he returned to [facility] for further care and monitoring. 04/15: This morning the patient is obtunded and has no sedation infusing. He does withdraw to noxious stimulation. He does not open his eyes but does have facial grimacing and turns his head to noxious stimulation. ADDENDUM at 1854: Patient was sedated with propofol 50 mcg/kg/min when seen, the pump was not visible at the time. BET. 04/16: When seen the patient is obtunded but does have the propofol drip infusing. Nursing reports that he moves all extremities but does become agitated when the propofol is weaned down. He moves all extremities to noxious stimulation when seen but did not follow any commands. 04/17: The patient remains obtunded and continues to be sedated with a propofol drip. He is now on phenylephrine for blood pressure support. He does not respond to commands and only withdraws the lower extremities to noxious stimulation. He does have some facial grimacing but no eye opening to noxious stimulation. He did go emergently late last night/early this morning for a revision of the left frontoparietal craniotomy for evacuation of a recurrent left hemisphere subdural haematoma. 04/18/17: intubated, propofol just turned off, intermittent movement to ext per nursing, not opening eyes. 04/19/17: nursing reports seizures yesterday, repeat CT head stable residual SDH and 5 mm midline shift. Awaiting EEG. 04/20: Patient with right eye partially opened when seen but Nursing just stimulated patient. He remains intubated and mechanically ventilated. He withdraws to noxious stimuli to the lower extremities but not the upper. He does have facial grimacing to noxious stimulation. Nursing reports that overnight KWAME #1 had 170 mL of yellowish drainage. She also says the patient has been off sedation approximately 36 hours. 04/21: The patient was examined in the presence of the family today and a more detailed history has been obtained. They indicate chronic progressive dementia to the point that the patient has had to move in with his daughter earlier this year. He cannot care for himself. He is usually quite confused, conversing with only a few words or short sentences and unable to stay on task with conversations. He is usually very active, fidgeting constantly. They state that his mental status today is not significantly changed from his overall baseline. He did go to the emergency room a couple of weeks ago at [facility] due to some pressure sensation or frontal headaches and was diagnosed with sinus congestion. A CT scan of the head was not obtained. He has had no definite falls over the past few weeks up until yesterday. 04/23: When seen the patient did have his eyes partially opened and he opened them wider to voice. He was moving the left upper and both lower extremities to varying degrees spontaneously. It was questionable if he moved the left lower to command but did move all extremities to noxious stimulation. 04/24: It is difficult to say if the patient was asleep when seen or not. It did appear he had his eyes partially open since Nursing was in the room. He did open them briefly to my voice. He spontaneously moved the left hand some and gripped this practitioner's hand. He moved the lower extremities to command. There was no noted movement of the right upper to noxious stimulation but he did have facial grimacing. 04/25: Patient is sedated but will respond to painful stimulation. 04/26: Patient now extubated and much more alert and responsive. He is not indicating any significant pain complaints. 04/27: This morning the patient's eyes are open. He did squeeze to command with the left hand and had withdrawal of the other extremities to noxious stimulation. He has been extubated but is nonverbal. He has mild respiratory effort on a nasal cannula. 04/28: When seen this morning the patient is lethargic. He did not open his eyes to voice or follow any commands. He did have slight withdrawal of the left upper and both lower extremities to noxious stimulation. He did have facial grimacing to noxious stimulation as well. 10/27: The patient is awake this morning. He is on a nasal cannula. He squeezes with the left hand when a hand is placed in it. He moves both feet to noxious stimulation. He had no movement of the right upper extremity. (Lacho Lacey) System Review Comments Unable to obtain due to patient's clinical condition. (Lacho Lacey) Exam Results 04/27/17 04/27/17 04/28/17 04/28/17 04/29/17 04/29/17 06:00 18:00 06:00 18:00 06:00 18:00 Intake Total 320 ml 790 ml 676 ml 650 ml Output Total 1750 ml 1075 ml 400 ml 5225 ml 400 ml Balance -1750 ml -755 ml 390 ml -4549 ml 250 ml IV Total 200 ml 100 ml Tube Feeding 60 ml 590 ml 586 ml 550 ml Other 60 ml 100 ml 90 ml 100 ml Output Urine Total 1750 ml 400 ml 5225 ml 400 ml Hemodialysis 1075 ml # Bowel Movements 2 0 0 1 Vital Signs Date Time Temp Pulse Resp B/P (MAP) Pulse Ox O2 Delivery O2 Flow Rate FiO2 04/29/17 08:15 98 Nasal Cannula 1.00 04/29/17 04:00 98.6 95 23 96 04/29/17 00:00 98.6 101 22 118/64 (82) 95 04/28/17 20:21 95 Nasal Cannula 1.00 04/28/17 20:00 106 04/28/17 20:00 97.8 109 25 111/59 (76) 95 04/28/17 19:46 94 Nasal Cannula 2.00 04/28/17 16:00 102 04/28/17 16:00 98.2 102 30 94/53 (67) 94 04/28/17 12:00 109 04/28/17 12:00 98.6 109 24 96/51 (66) 94 04/28/17 08:00 98.5 114 25 111/54 (73) 94 04/28/17 08:00 114 04/28/17 07:28 95 Nasal Cannula 1.00 04/28/17 07:00 94 Nasal Cannula 2.00 04/28/17 04:00 107 04/28/17 04:00 98.0 107 26 114/58 (76) 96 04/28/17 01:07 20 04/28/17 00:00 91 04/28/17 00:00 97.9 91 23 131/64 (86) 96 04/27/17 22:00 92 04/27/17 20:44 97 Nasal Cannula 1.00 04/27/17 20:00 98.2 90 19 149/87 (107) 98 04/27/17 20:00 90 04/27/17 20:00 98 Nasal Cannula 2.00 04/27/17 16:00 98.1 97 24 151/70 (97) 98 04/27/17 15:00 89 04/27/17 12:00 98.1 84 23 137/60 (85) 97 04/27/17 08:00 97.9 84 25 139/65 (89) 99 04/27/17 08:00 90 04/27/17 07:13 98 Nasal Cannula 2.00 04/27/17 07:00 Nasal Cannula 2.00 04/27/17 06:00 82 04/27/17 04:00 98.0 82 24 126/59 (81) 99 04/27/17 04:00 83 04/27/17 02:00 83 04/27/17 00:00 75 04/27/17 00:00 98.3 75 26 116/55 (75) 99 04/26/17 22:36 99 Nasal Cannula 2.00 04/26/17 22:00 77 04/26/17 20:00 80 04/26/17 20:00 97 Nasal Cannula 2.00 04/26/17 20:00 97.7 76 28 138/63 (88) 97 04/26/17 16:00 84 04/26/17 16:00 99.3 84 28 129/63 (85) 97 04/26/17 16:00 97 Nasal Cannula 2.00 04/26/17 12:00 99.0 96 26 136/63 (87) 99 04/26/17 12:00 96 04/26/17 09:27 97 Nasal Cannula 4.00 04/26/17 09:27 97 Nasal Cannula 4 04/26/17 09:25 99 Nasal Cannula 4.00 (Lacho Lacey) Physical Examination GENERAL: Awake, no sedation infusing, nonlaboured respiratory effort, no apparent distress. HEENT: Left craniotomy surgical incision well approximated with gilles. PERRLA 3mm reactive. NGT left nare. Erosion of the philtrum. MUSCULOSKELETAL: No clubbing or deformity evident. NEUROLOGICAL: Awake, w/o any sedation infusing. Spontaneous eye opening. Nonverbal. Facial grimacing to all noxious stimulation. Squeezed w/left hand when hand placed in his. Moved BLE to local noxious stimulation but not the RUE. (Lacho Lacey) Lab, Micro, Other Results Recent Impressions Head CT 04/27/17 0000 Signed Impressions: Service Date/Time: Thursday, April 27, 2017 11:04 - CONCLUSION: 1. Interval removal of the patient's subdural drain. There is still a small amount of subdural hemorrhage remaining along the left frontal cortex. The remainder of the hemorrhage along the parietal is no longer identified. Findings were discussed in detail above. Luis Moreno MD Laboratory Tests Test 04/27/17 05:18 04/28/17 03:58 04/28/17 17:04 04/29/17 04:38 Blood Urea Nitrogen 15 MG/DL 16 MG/DL 19 MG/DL Creatinine 0.77 MG/DL 0.93 MG/DL 0.68 MG/DL Random Glucose 122 MG/DL 211 MG/DL 164 MG/DL Calcium Level 8.4 MG/DL 8.7 MG/DL 8.9 MG/DL Sodium Level 144 MEQ/L 143 MEQ/L 147 MEQ/L Potassium Level 4.1 MEQ/L 3.4 MEQ/L 3.5 MEQ/L 3.8 MEQ/L Chloride Level 109 MEQ/L 108 MEQ/L 110 MEQ/L Carbon Dioxide Level 25.8 MEQ/L 27.6 MEQ/L 30.3 MEQ/L Anion Gap 9 MEQ/L 7 MEQ/L 7 MEQ/L Estimat Glomerular Filtration Rate 100 ML/MIN 80 ML/MIN 115 ML/MIN (Lacho Lacey) Medical Decision Making Impression and Plan Impression: 1. 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 Dementia 4. Cardiac murmur Patient awake, not following commands, squeezes w/left hand when hand placed in it, moves BLE to noxious stimulation. Prognosis still guarded. Reviewed labs for today. Sodium 147. Hypokalemia resolved. Interval improvement in renal function. CT brain demonstrated minimal left frontal subdural haematoma, right parietal cortices hygroma, no significant change. EEG consistent w/severe encephalopathy. KWAME #1 was removed . KWAME #2 removed . POD #15 () s/p: Left frontoparietal craniotomy for evacuation of subacute on chronic subdural hematoma Postoperative Diagnosis: (1) Subdural hematoma, chronic (2) Acute subdural hematoma 1. Left hemisphere subacute on chronic subdural hematoma 2. Acute right frontal subdural hematoma POD #12 () s/p: Revision left frontoparietal craniotomy evacuation of recurrent left hemisphere subdural hematoma Postoperative Diagnosis: (1) Acute subdural hematoma Recurrent left hemisphere subdural hematoma Plan: Primary management per Building Construction Estimator. Neuro checks. Repeat CT brain for any decline in neuro status. Mechanical DVT prophylaxis. Hold pharmacologic DVT prophylaxis. Stress ulcer prophylaxis. Patient is able to be transferred to a regular med/surg floor vs inpatient rehab from Neurosurgery's perspective. Will d/c gilles to craniotomy incision & suture to drain site. (Lacho Lacey) Attending Statement The exam, history, and the medical decision-making described in the above note were completed with the assistance of the mid-level provider. I reviewed and agree with the findings presented. I attest that I had a [id number] encounter with the patient on the same day, and personally performed and documented my assessment and findings in the medical record. Patient seen by the undersigned this morning with the nurse practitioner. He remains awake, relatively alert. He briefly tracks to the left greater than right in response to voice. Does not appear to attempt to verbalize. Has evidence of right hemiparesis. Moderate left hand grasp intermittent but not definite to command Incision is dry and intact Persistent left hemisphere dysfunction following evacuation of large subdural hematoma. He appears stable for transfer to regular floor from neurosurgery standpoint Anticipate need for inpatient rehabilitation. Discussed with the patient's family on the telephone on 04/28/2017. (Sylvester Odom MD) Lacho Lacey Apr 29, 2017 09:06 Sylvester Odom MD Apr 29, 2017 19:29
[2017-04-29] MEDS: FREE WATER G-TUBE SCH ×4 (12:00→23:26)
[2017-04-30] VITALS (10 sets, daily range): BP systolic 124–154; BP diastolic 63–99; PULSE 88–128; RESP 16–25; TEMP 97–98.8; O2SAT 90–97
[2017-04-30] MEDS: CHLORHEXIDINE GLUCONATE 2 % 1 PACK (2 CLOTHS) TOP SCH (02:13)
[2017-04-30] MEDS: FREE WATER G-TUBE SCH ×5 (03:36→20:00)
[2017-04-30 05:34] LABS: BICARBONATE 30.4 MEQ/L (21.0-32.0); CALCIUM 8.8 MG/DL (8.5-10.1); CREATININE 0.66 MG/DL (0.60-1.30)
[2017-04-30] MEDS: INSULIN ASPART SUPPLEMENTAL SCALE SQ SCH ×4 (05:44→22:51)
[2017-04-30] MEDS: VALSARTAN 80 MG TAB PO SCH (09:00)
[2017-04-30] MEDS: TOLTERODINE TARTRATE 4 MG CAP LA PO SCH (09:00)
[2017-04-30] MEDS: INSULIN DETEMIR 100 UNITS/ML VIAL SQ SCH ×2 (09:00→22:28)
[2017-04-30] MEDS: SODIUM CHLORIDE 0.9% FLUSH 10 ML FLUSH IV FLUSH SCH ×2 (09:00→22:28)
--- NOTE | 2017-04-30 09:23 | HHI.CCPN ---
Subjective Remarks/Hospital Course 04/12: 71-year-old male presents for evaluation after he fell hitting his head. Per family report they were in the bathroom trying to change his undergarments when he slipped and fell hitting his head. He is not on anticoagulant. The patient is pleasantly confused and patient's daughter states this is his baseline. He has had no altered mental status since the fall. No vomiting. The patient reports a mild headache without radiation. No neck pain or back pain. He has been ambulatory without difficulty since the fall. The CT head performed in the emergency department shows bilateral subdural hematomas in addition to parafalcine subdural hematoma, left frontal and temporal lobe intraparenchymal hemorrhages and subfalcine herniation from [id number]. 04/13: Resting in bed comfortably at the time of my evaluation this morning. Confused, does not know the year. Knows he is in the hospital. Moves all 4 extremity's. Does not appear to be in any acute distress. 04/14: Afebrile. The patient continues to be confused but easily following commands notable systolic ejection murmur, echo pending. Patient scheduled for neurosurgical intervention this afternoon. 04/15: Tmax 99.3. The patient status post craniotomy with evacuation of subdural hematoma last evening, remained intubated, only on sedation with propofol infusion and requiring low-dose phenylephrine to maintain map greater than 65. Sedation was briefly lightened last evening postoperatively, and the patient was extremely agitated. IV fluids changed from D5W to normal saline with [address] brain performed. INR pending. 04/16: Tmax 99.8 Patient agitated during the night , swinging his legs out of the bed while on maximum doses of propofol infusion, fentanyl infusion low-dose added this a.m. Patient's diet advance will begin tube feeds this a.m. The patient was noted to have multifocal PVCs intermittent during the night potassium level 3.2 currently being repleted with K-Phos. 04/17: Tmax 101.6. The patient underwent emergent craniotomy for evacuation of acute recurrent left subdural hematoma last evening. The patient continues on 3 % normal saline, with serial sodium and osmole is being followed. Currently weaning slowly sedation for neuro assessment. Patient noted to have a significant elevation in WBC count of 22, blood cultures urine cultures and sputum cultures obtained. Chest x-ray now showing bilateral lung opacities edema versus possible infectious process being ruled out. Echo revealed patient has severe aortic stenosis with a roommate mean gradient of 44. The patient continues on phenylephrine for vasopressors support at this time. 04/18: Last evening, the patient went into A. fib RVR, heart rate low 100s, with self resolution. This a.m. the patient continues to have sinus rhythm/sinus tachycardia 90-105 with frequent multifocal PVCs. Electrolytes within normal limits. Given the significant medical history for severe aortic stenosis metoprolol 2.5 mg IV for rapid heart rate instituted. The patient continues on phenylephrine infusion for maintenance of a map greater than 65. Propofol is currently being weaned off. EEG revealed last night severe encephalopathy. No change in neurological status but patient still is under sedation patient withdraws to pain bilateral lower extremities and now has spontaneous eye opening intermittently. Leukocytosis notably is resolving. 04/19: Afebrile. Today afternoon the patient was noted to have a seizure, Ativan 1 mg IV push with resolution EEG ordered. Post seizure the patient was noted to have gross hematuria. Coag studies performed within normal limits, fibrinogen level slightly elevated . Creatinine kinase noted to be within normal limits. Hematuria thought to possibly be secondary to acquired von Willebrand's factor secondary to the shear stress from his severe aortic stenosis. DDAVP 2 mcgs IV 1 dose ordered this a.m.. Patient continues on 3% sodium chloride, phenylephrine has been discontinued. 04/20: Remains sedated, orally intubated on mechanical ventilation. Remains on 3 % saline. Off phenylephrine currently. Blood pressure labile. Tolerating tube feeds. 04/21: Remains sedated, orally intubated on mechanical ventilation. Stopping 3% saline. Tolerating tube feeds 04/22: Remains sedated, orally intubated on mechanical ventilation. On Levophed for pressor support. Spiking temperatures. Started on Zosyn yesterday. Continues to have hematuria. One unit PRBCs and fluid bolus ordered. 04/23: Appears to have developed ADRIANNE from osmotic diuresis associated with poorly controlled diabetes. Hyperglycemia exacerbated by dextrose containing solution. Will start constant carb feedings with glucerna, reduce levemir, add SSI coverage, and hydrate to correct fluid depletion. 04/24: Continued serum concentration associated with free water loss. No improvement in neurological function. Suspect osmotic diuresis from elevated glucose but will check urine specific gravity to rule out DI. 04/25: Osmolality improving. Continue DDAVP prn. 04/26: Alertness much improved after Na corrected. Required DDAVP X 2. Gas exchange acceptable and he is strong on CPAP trial. Right arm edematous, ultrasound with no thrombus. 04/27: Extubated > 24 hours ago and breathing comfortably. Protects airway. Electrolytes normalized. Transfer. 04/28: Tolerating extubation but respiratory rate increased, not labored. Osmolality normalized off of DDAVP. 04/29: more somnolent today, but still awake and following commands. sodium mp from 143 to 147 off DDAVP. will restart free water. ROS unobtainable due to patient's baseline mental status. 3-way contreras persists, less hematuria noted. Cr continues to improve. remains stable for transfer to floor. SUBJECTIVE: 04/30: Currently in room 1319 . Resting in sitting position bed. Currently resting in bed in no acute distress. Contreras catheter remains. Objective Vital Signs Date Time Temp Pulse Resp B/P (MAP) Pulse Ox O2 Delivery O2 Flow Rate FiO2 04/30/17 08:30 97.5 103 23 154/87 (109) 90 04/29/17 08:15 Nasal Cannula 1.00 04/26/17 08:03 35 Intake and Output 04/30/17 04/30/17 05/01/17 08:00 16:00 00:00 Intake Total 467 ml Balance 467 ml Result Diagram: 04/30/17 0355 Other Results Microbiology Date/Time Source Procedure Growth Status 04/21/17 18:53 Blood Peripheral Aerobic Blood Culture - Final NO GROWTH IN 5 DAYS Complete 04/21/17 18:53 Blood Peripheral Anaerobic Blood Culture - Final NO GROWTH IN 5 DAYS Complete 04/20/17 13:30 Sputum Endotracheal Gram Stain - Final Complete 04/20/17 13:30 Sputum Culture - Final Escherichia Coli Klebsiella Pneumoniae Complete Imaging Last Impressions Head CT 04/27/17 0000 Signed Impressions: Service Date/Time: Thursday, April 27, 2017 11:04 - CONCLUSION: 1. Interval removal of the patient's subdural drain. There is still a small amount of subdural hemorrhage remaining along the left frontal cortex. The remainder of the hemorrhage along the parietal is no longer identified. Findings were discussed in detail above. Luis Moreno MD Chest X-Ray 04/26/17 0400 Signed Impressions: Service Date/Time: Wednesday, April 26, 2017 04:12 - CONCLUSION: No significant interval change. Zeferino Hewitt MD Upper Extremity Ultrasound 04/25/17 0000 Signed Impressions: Service Date/Time: Tuesday, April 25, 2017 11:44 - CONCLUSION: No evidence of right upper extremity DVT. David Meade MD Cervical Spine CT 04/12/17 0000 Signed Impressions: Service Date/Time: Wednesday, April 12, 2017 17:36 - CONCLUSION: Degenerative spondylosis without any significant compromise to the thecal sac or the exiting nerve roots. Maria Guadalupe Alvarado MD Objective Remarks GENERAL: 71-year-old Elderly gentleman, minimally responsive. SKIN: Warm and dry. No rash HEAD: Atraumatic. Normocephalic. EYES: Pupils equal and round about 4 mm bilaterally and reactive. No scleral icterus. No injection or drainage. ENT: No nasal bleeding or discharge. Mucous membranes pink and moist. NECK: Trachea midline. Airway widely patent. CARDIOVASCULAR: Regular rate and rhythm. S1, S2 no S4. 2/6 systolic murmur right upper sternal border RESPIRATORY: No accessory muscle use. No wheezing rales or rhonchi GASTROINTESTINAL: Abdomen soft, non-tender, nondistended, no guarding. : Contreras catheter in place MUSCULOSKELETAL: Extremities without clubbing, cyanosis. Right arm with gross edema. NEUROLOGICAL: Moves 4 limbs spontaneously however very weakly. Withdraws to pain in all 4 extremities. Opens eyes, tracks. follows some simple commands. Procedures 1/2-left frontoparietal craniotomy with evacuation of subacute on chronic SDH /5-@ 0000 emergent craniotomy with evacuation of acute recurrent left subdural hematoma Urinary Catheter: Yes Assessment to: Continue Contreras insert reason: Prolonged Immobilization Vascular Central Line Catheter: No Assessment to: Continue A/P Assessment and Plan NEURO/PSYCH TBI -Subdural hematoma S/P Left frontoparietal craniotomy with evacuation of subacute on chronic SDH S/P Emergency revision/evacuation of acute recurrent left subdural hematoma Acute encephalopathy- resolving slowly Dementia disorder NOS Depression -Neurosurgery following. Dr. Odom - Neuro checks per protocol - Repeat CT head per neurosurgery-stable acute subdural hematoma within frontal regions, bilateral 5 mm subfalcine herniation to the right - Seizure prophylaxis with levetiracetam has been discontinued GBG discontinued 04/26 - 04/18 EEG-severe encephalopathy avoid long-acting sedating meds continue home gabapentin. 400 mg 3 times a day Trazodone 100 mg at night, sertraline 150 mg daily and donepezil 10 mg a old discontinued secondary QTc prolongation Acetaminophen 650 mg by NG every 6 hours when necessary fever RESP: COPD Acute hypoxic and hypercarbic respiratory failure - resolving. Nasal cannula to maintain saturations greater than equal to 90% Incentive spirometry while awake Albuterol/ipratropium aerosols every 6 hours with albuterol aerosols 2 hours. Dyspnea - Extubated 04/26. - aggressive pulmonary toilet with a cappella/CPAP incentive spirometry CV: Severe Hypotension- -resolved. Sinus tachycardia- resolved. Essential hypertension -04/14 EKG prolonged QT 475, continue close monitoring - 04/16 Echo-s Normal left ventricular size. Severe concentric left ventricular hypertrophy. The left ventricular systolic function is low normal with an estimated ejection fraction in the range of 50- 55%. Trace aortic valve regurgitation. Severe aortic valve stenosis. Moderate thickening of the aorticv alve leaflets. Aortic valve mean gradient is 44 mmHg. - Repeat monitoring manager QTc-holding benazepril and sertraline and donepezil Continue valsartan 80 mg by mouth daily for hypertension/home medication Started on metoprolol tartrate milligrams twice a day for hypertension GI: Acute protein calorie Malnutrition - severe - Continue tube feeds Glucerna 1.5 with goal 60cc/hr Famotidine 20 mg by 2 twice a day for bowel regimen Docusate sodium/senna 1 tablet twice a day for bowel regimen : Hematuria Maintain Contreras Dr. Woods has followed Neurology recommends replace Contreras catheter with a 18 Wall[place]ian coud and irrigate when necessary clots (previously with a 14 Wallisian catheter) Continue tolterodine 4 mg by mouth daily for management of bladder spasms Holding trospium 20 mg twice a day ENDO: Diabetes mellitus - improved control. Central Diabetes Insipidus - Hold metformin 500 mg daily/home medication - Insulin sliding scale Novulog -high dose dose regimen, 25 units sliding scale past 24 hours Currently on insulin detemir 20 units twice a day - Unable to get clear urine due to bladder bleed. - Responding well to DDAVP, now stopped 04/28. Currently on free water 300mL po q4h - daily bmp to check sodium ID: Septic shock- resolved. Pneumonia - resolved. Bacteremia- resolved. 04/19-blood cultures-staph intermedius 04/14 sets - contaminant 04/20 - Sputum cultures with e. coli, klebisella. s/p full course of Augie/ tazobactam 04/21 - 04/27. monitor off abx for fever, signs of infection. HEME: Last CBC 04/25. Leukocytosis. Recheck in a.m. 05/01 FEN: Hypernatremia See above treatment plan Continue free water 300 cc every 4 hours. Recheck BMP in a.m. Replace electrolytes as clinically indicated MSK PT evaluate and treat DVT GI prophylaxis - Teds SCDs - No pharmacological DVT prophylaxis due to subdural hematoma - Pepcid BID Level II follow-up Patient is stable from a critical care medicine standpoint. Assign care to hospitalist in a.m. 05/01. Transfer to floor. Alexander Corral MD Apr 30, 2017 09:23
[2017-04-30] MEDS ORDERED: ACETAMINOPHEN 650 MG/20.3 ML UDC NG PRN (09:45)
[2017-04-30] MEDS ORDERED: RESP: ALBUTEROL 2.5 MG/3 ML NEB (PRN) NEB (09:45)
[2017-04-30] MEDS: PRAVASTATIN SOD 40 MG TAB PO SCH (09:53)
[2017-04-30] MEDS: GABAPENTIN 400 MG CAP PO SCH ×3 (09:53→17:26)
[2017-04-30] MEDS: DOCUSATE SODIUM 50 MG/SENNA 8.6 MG TAB PO SCH ×2 (09:53→22:28)
[2017-04-30] MEDS: METOPROLOL TARTRATE 25 MG TAB PO SCH ×2 (09:53→22:28)
[2017-04-30] MEDS: FAMOTIDINE 20 MG TAB NG SCH ×2 (10:45→22:28)
[2017-04-30] MEDS: RESP: ALBUTEROL 2.5 MG/IPRATROPIUM 0.5 MG NEB (SCH) NEB ×3 (11:20→20:25)
--- NOTE | 2017-04-30 11:38 | HHI.NSPN ---
(Lacho Lacey Betsey JOSEPH) History Chief Complaint: Unable to obtain due to patient's clinical condition. (Lacho Lacey BIT GATHERER) Interval History 04/12: Mr. Hope is a 71-year-old male who presented to the emergency room today after he fell at home in the presence of his daughter. She states that he lost his balance while trying to put some close on, and fell and struck his head. There was no loss of consciousness. No seizure activity or nausea or emesis reported. The patient has baseline dementia and confusion, but no definite overall change in his mentation after the fall earlier today, according to his daughter, who he lives with. He presently has no complaint of headache. He does have some chronic neck and back pain. 04/13: The patient was examined in the presence of the family today and a more detailed history has been obtained. They indicate chronic progressive dementia to the point that the patient has had to move in with his daughter earlier this year. He cannot care for himself. He is usually quite confused, conversing with only a few words or short sentences and unable to stay on task with conversations. He is usually very active, fidgeting constantly. They state that his mental status today is not significantly changed from his overall baseline. He did go to the emergency room a couple of weeks ago at [facility] due to some pressure sensation or frontal headaches and was diagnosed with sinus congestion. A CT scan of the head was not obtained. He has had no definite falls over the past few weeks up until yesterday. 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 Post-operatively he returned to [facility] for further care and monitoring. 04/15: This morning the patient is obtunded and has no sedation infusing. He does withdraw to noxious stimulation. He does not open his eyes but does have facial grimacing and turns his head to noxious stimulation. ADDENDUM at 1854: Patient was sedated with propofol 50 mcg/kg/min when seen, the pump was not visible at the time. BET. 04/16: When seen the patient is obtunded but does have the propofol drip infusing. Nursing reports that he moves all extremities but does become agitated when the propofol is weaned down. He moves all extremities to noxious stimulation when seen but did not follow any commands. 04/17: The patient remains obtunded and continues to be sedated with a propofol drip. He is now on phenylephrine for blood pressure support. He does not respond to commands and only withdraws the lower extremities to noxious stimulation. He does have some facial grimacing but no eye opening to noxious stimulation. He did go emergently late last night/early this morning for a revision of the left frontoparietal craniotomy for evacuation of a recurrent left hemisphere subdural haematoma. 04/18/17: intubated, propofol just turned off, intermittent movement to ext per nursing, not opening eyes. 04/19/17: nursing reports seizures yesterday, repeat CT head stable residual SDH and 5 mm midline shift. Awaiting EEG. 04/20: Patient with right eye partially opened when seen but Nursing just stimulated patient. He remains intubated and mechanically ventilated. He withdraws to noxious stimuli to the lower extremities but not the upper. He does have facial grimacing to noxious stimulation. Nursing reports that overnight KWAME #1 had 170 mL of yellowish drainage. She also says the patient has been off sedation approximately 36 hours. 04/21: The patient was examined in the presence of the family today and a more detailed history has been obtained. They indicate chronic progressive dementia to the point that the patient has had to move in with his daughter earlier this year. He cannot care for himself. He is usually quite confused, conversing with only a few words or short sentences and unable to stay on task with conversations. He is usually very active, fidgeting constantly. They state that his mental status today is not significantly changed from his overall baseline. He did go to the emergency room a couple of weeks ago at [facility] due to some pressure sensation or frontal headaches and was diagnosed with sinus congestion. A CT scan of the head was not obtained. He has had no definite falls over the past few weeks up until yesterday. 04/23: When seen the patient did have his eyes partially opened and he opened them wider to voice. He was moving the left upper and both lower extremities to varying degrees spontaneously. It was questionable if he moved the left lower to command but did move all extremities to noxious stimulation. 04/24: It is difficult to say if the patient was asleep when seen or not. It did appear he had his eyes partially open since Nursing was in the room. He did open them briefly to my voice. He spontaneously moved the left hand some and gripped this practitioner's hand. He moved the lower extremities to command. There was no noted movement of the right upper to noxious stimulation but he did have facial grimacing. 04/25: Patient is sedated but will respond to painful stimulation. 04/26: Patient now extubated and much more alert and responsive. He is not indicating any significant pain complaints. 04/27: This morning the patient's eyes are open. He did squeeze to command with the left hand and had withdrawal of the other extremities to noxious stimulation. He has been extubated but is nonverbal. He has mild respiratory effort on a nasal cannula. 04/28: When seen this morning the patient is lethargic. He did not open his eyes to voice or follow any commands. He did have slight withdrawal of the left upper and both lower extremities to noxious stimulation. He did have facial grimacing to noxious stimulation as well. 04/29: The patient is awake this morning. He is on a nasal cannula. He squeezes with the left hand when a hand is placed in it. He moves both feet to noxious stimulation. He had no movement of the right upper extremity. 04/30: This morning the patient is sitting up in the cardiac chair with his eyes closed. There was no evident eye opening to voice. He was noted to move the left lower extremity spontaneously. He did give a slight squeeze with the left hand to command and appears to have tried to give a thumbs up when asked to. He did move the right lower extremity to noxious stimulation and there was muscle contraction noted to the right forearm to noxious stimulation. (Lacho Lacey) System Review Comments Unable to obtain due to patient's clinical condition. (Lacho Lacey) Exam Results 04/28/17 04/28/17 04/29/17 04/29/17 04/30/17 04/30/17 06:00 18:00 06:00 18:00 06:00 18:00 Intake Total 790 ml 676 ml 650 ml 1695 ml 467 ml Output Total 400 ml 5225 ml 400 ml 3325 ml Balance 390 ml -4549 ml 250 ml -1630 ml 467 ml Intake Oral 360 ml 0 ml IV Total 100 ml Tube Feeding 590 ml 586 ml 550 ml 675 ml 467 ml Other 100 ml 90 ml 100 ml 660 ml Output Urine Total 400 ml 5225 ml 400 ml 3325 ml Gastric Drainage Total 0 ml Tube Feeding Residual Discard 0 ml # Bowel Movements 0 1 1 Vital Signs Date Time Temp Pulse Resp B/P (MAP) Pulse Ox O2 Delivery O2 Flow Rate FiO2 04/30/17 09:36 88 04/30/17 08:30 97.5 103 23 154/87 (109) 90 04/30/17 04:14 98.3 92 24 138/63 (88) 92 04/30/17 00:00 97.0 92 16 124/63 (83) 93 04/29/17 20:00 109 04/29/17 19:00 123 04/29/17 19:00 97.2 123 24 130/61 (84) 92 04/29/17 16:00 98.0 106 26 121/58 (79) 93 04/29/17 12:00 99.2 112 28 127/89 (102) 93 04/29/17 08:15 98 Nasal Cannula 1.00 04/29/17 08:00 97 Nasal Cannula 1.00 04/29/17 08:00 98.5 100 28 118/56 (76) 97 04/29/17 08:00 100 04/29/17 04:00 98.6 95 23 96 04/29/17 00:00 98.6 101 22 118/64 (82) 95 04/28/17 20:21 95 Nasal Cannula 1.00 04/28/17 20:00 106 04/28/17 20:00 97.8 109 25 111/59 (76) 95 04/28/17 19:46 94 Nasal Cannula 2.00 04/28/17 16:00 102 04/28/17 16:00 98.2 102 30 94/53 (67) 94 04/28/17 12:00 109 04/28/17 12:00 98.6 109 24 96/51 (66) 94 04/28/17 08:00 98.5 114 25 111/54 (73) 94 04/28/17 08:00 114 04/28/17 07:28 95 Nasal Cannula 1.00 04/28/17 07:00 94 Nasal Cannula 2.00 04/28/17 04:00 107 04/28/17 04:00 98.0 107 26 114/58 (76) 96 04/28/17 01:07 20 04/28/17 00:00 91 04/28/17 00:00 97.9 91 23 131/64 (86) 96 04/27/17 22:00 92 04/27/17 20:44 97 Nasal Cannula 1.00 04/27/17 20:00 98.2 90 19 149/87 (107) 98 04/27/17 20:00 90 04/27/17 20:00 98 Nasal Cannula 2.00 04/27/17 16:00 98.1 97 24 151/70 (97) 98 04/27/17 15:00 89 04/27/17 12:00 98.1 84 23 137/60 (85) 97 (Lacho Lacey) Physical Examination GENERAL: Drowsy, no sedation infusing, nonlaboured respiratory effort, no apparent distress. HEENT: Left craniotomy surgical incision well approximated, some crusting, no evident drainage, erythema or streaking. PERRLA 3mm reactive. NGT left nare. Erosion of the philtrum. MUSCULOSKELETAL: No clubbing or deformity evident. Moving LLE spontaneously. NEUROLOGICAL: Drowsy, w/o any sedation infusing. No eye opening this morning. Nonverbal. Facial grimacing to all noxious stimulation. Did appear to squeeze with the left hand and slight movement of thumb when asked to give a thumbs up. Moved LLE spontaneously and to command. Move RLE to local noxious stimulation. There was slight muscle contraction noted to the right forearm to noxious stimulation to the RUE. (Lacho Lacey) Lab, Micro, Other Results Laboratory Tests Test 04/28/17 03:58 04/28/17 17:04 04/29/17 04:38 04/30/17 03:55 Blood Urea Nitrogen 16 MG/DL 19 MG/DL 21 MG/DL Creatinine 0.93 MG/DL 0.68 MG/DL 0.66 MG/DL Random Glucose 211 MG/DL 164 MG/DL 174 MG/DL Calcium Level 8.7 MG/DL 8.9 MG/DL 8.8 MG/DL Sodium Level 143 MEQ/L 147 MEQ/L 146 MEQ/L Potassium Level 3.4 MEQ/L 3.5 MEQ/L 3.8 MEQ/L 3.8 MEQ/L Chloride Level 108 MEQ/L 110 MEQ/L 110 MEQ/L Carbon Dioxide Level 27.6 MEQ/L 30.3 MEQ/L 30.4 MEQ/L Anion Gap 7 MEQ/L 7 MEQ/L 6 MEQ/L Estimat Glomerular Filtration Rate 80 ML/MIN 115 ML/MIN 119 ML/MIN (Lacho Lacey) Medical Decision Making Impression and Plan Impression: 1. 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 Dementia 4. Cardiac murmur Patient drowsy, following some commands, squeezes w/left hand and appeared to try and give a thumbs up, moving LLE spontaneously & to command, moving RLE to noxious stimulation and trace muscle contraction of right forearm to local noxious stimulation. Prognosis still guarded. Reviewed labs for today. Sodium 146. CT brain demonstrated minimal left frontal subdural haematoma, right parietal cortices hygroma, no significant change. EEG consistent w/severe encephalopathy. KWAME #1 was removed . KWAME #2 removed . POD #16 () s/p: Left frontoparietal craniotomy for evacuation of subacute on chronic subdural hematoma Postoperative Diagnosis: (1) Subdural hematoma, chronic (2) Acute subdural hematoma 1. Left hemisphere subacute on chronic subdural hematoma 2. 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 Neuro checks. Repeat CT brain for any decline in neuro status. Mechanical DVT prophylaxis. Hold pharmacologic DVT prophylaxis. Stress ulcer prophylaxis. Patient is able to be transferred to a regular med/surg floor vs inpatient rehab from Neurosurgery's perspective. (Lacho Lacey) Attending Statement The exam, history, and the medical decision-making described in the above note were completed with the assistance of the mid-level provider. I reviewed and agree with the findings presented. I attest that I had a [id number] encounter with the patient on the same day, and personally performed and documented my assessment and findings in the medical record. On my examination 04/30/17, patient moderately lethargic, mild eye-opening to voice, seems to track a little to the left greater than right to voice. Not definitely following commands for me. Mild left grasp. Appears to have right hemiparesis Dressing dry and intact No significant neurologic improvement Continue ventilator support Continue [facility] neurochecks Okay for Lovenox (Sylvester Odom MD) Lacho Lacey Apr 30, 2017 11:38 Sylvester Odom MD May 04, 2017 21:10
[2017-04-30] MEDS: ARTIFICIAL TEARS OPTH OINT 3.5 APPLIC/3.5 GM TUBO EACH EYE SCH (22:29)
[2017-05-01] VITALS (17 sets, daily range): BP systolic 72–135; BP diastolic 53–75; PULSE 83–134; RESP 15–28; TEMP 97.8–100; O2SAT 83–100
[2017-05-01] MEDS ORDERED: MIDAZOLAM HCL 5 MG/ML VIAL (1 ML) ONE (03:41)
[2017-05-01] MEDS ORDERED: MIDAZOLAM HCL 2 MG/2 ML VIAL IV SCH (03:45)
[2017-05-01] MEDS: CHLORHEXIDINE GLUCONATE 2 % 1 PACK (2 CLOTHS) TOP SCH (04:00)
[2017-05-01] MEDS: FREE WATER G-TUBE SCH ×6 (04:00→19:44)
[2017-05-01 04:21] LABS: AUTOMATED NEUTROPHIL # 22.8 TH/MM3 (1.8-7.7); BASOPHIL # 0.3 TH/MM3 (0-0.2); BASOPHIL % 1.2 % (0.0-2.0); EOSINOPHIL % 0.1 % (0.0-4.0); HEMATOCRIT 36.4 % (39.0-51.0); LYMPH % 1.1 % (9.0-44.0); LYMPHOCYTE # 0.3 TH/MM3 (1.0-4.8); MEAN CELL VOLUME 85.4 FL (80.0-100.0); MEAN CORPUSCULAR HEMOGLOBIN 28.1 PG (27.0-34.0); MEAN CORPUSCULAR HGB CONC 32.9 % (32.0-36.0); MEAN PLATELET VOLUME 8.1 FL (7.0-11.0); MONO % 4.7 % (0.0-8.0); MONOCYTE # 1.1 TH/MM3 (0-0.9); NEUT % 92.9 % (16.0-70.0); PLATELET COUNT 710 TH/MM3 (150-450); RED BLOOD COUNT 4.26 MIL/MM3 (4.50-5.90); RED CELL DISTRIBUTION WIDTH 16.2 % (11.6-17.2); WHITE BLOOD COUNT 24.5 TH/MM3 (4.0-11.0)
[2017-05-01 04:49] LABS: ALBUMIN 2.1 GM/DL (3.4-5.0); BICARBONATE 28.7 MEQ/L (21.0-32.0); CALCIUM 8.8 MG/DL (8.5-10.1); CREATININE 1.66 MG/DL (0.60-1.30); DIRECT BILIRUBIN ADULT 0.1 MG/DL (0.0-0.2); INDIRECT BILIRUBIN 0.3 MG/DL (0.0-0.8); MAGNESIUM 2.4 MG/DL (1.5-2.5); PHOSPHORUS 5.2 MG/DL (2.5-4.9); TOTAL BILIRUBIN ADULT 0.4 MG/DL (0.2-1.0); TOTAL PROTEIN 6.8 GM/DL (6.4-8.2)
[2017-05-01] MEDS: RESP: ALBUTEROL 2.5 MG/IPRATROPIUM 0.5 MG NEB (SCH) NEB ×4 (05:06→20:03)
--- NOTE | 2017-05-01 05:22 | RADRPT ---
EXAM DATE/TIME: 05/01/2017 04:41 [place] COMPARISON: CHEST SINGLE AP, April 26, 2017, 4:12. INDICATIONS : Post intubation. MEDICAL HISTORY : Cardiovascular disease. Chronic obstructive pulmonary disease. Carcinoma, prostate.Diabetes SURGICAL HISTORY : Craniotomy. ENCOUNTER: Initial ACUITY: 1 day PAIN SCORE: Non-responsive. LOCATION: Bilateral chest FINDINGS: Stable ETT and NGT. Minimal bibasilar airspace disease. Cardiomediastinal contours are stable. Remain jered of the exam is unchanged. CONCLUSION: 1. Stable ETT and NGT. 2. Stable minimal bibasilar airspace disease, likely atelectasis. 3. No significant interval change. Thierry Barros MD on May 01, 2017 at 5:20 Board Certified Radiologist. This report was verified electronically.
--- NOTE | 2017-05-01 05:28 | PD.PROCEDR ---
Procedure Note Procedure Endotracheal Intubation A time-out was completed verifying correct patient, procedure, site, positioning , and special equipment if applicable. The patient was placed in a flat position. Sedation was obtained using Etomidate 20mg. The patient was easily ventilated using an ambu bag. The [employer]/ MAC 4 BLADE was used and inserted into the oropharynx at which time there was a Grade 1 view of the vocal cords. A 8-czech endotracheal tube was inserted and visualized going through the vocal cords. The stylette was removed. Colorimetric change was visualized on the CO2 meter. Breath sounds were heard in both lung dut[place] equally. The endotracheal tube was placed at 23 cm, measured at the teeth. A chest x-ray was ordered to assess for pneumothorax and verify endotrachealtube placement. Estimated Blood Loss: 0 The patient tolerated the procedure well and there were no complications. Corby Romo MD May 01, 2017 5:28 am
[2017-05-01] MEDS: SODIUM CHLOR 0.9% 1000 ML INJ 1,000 ML IV SCH ×2 (05:40→05:51)
[2017-05-01] MEDS: INSULIN ASPART SUPPLEMENTAL SCALE SQ SCH ×3 (06:00→18:00)
--- NOTE | 2017-05-01 07:26 | HHI.CCPN ---
Subjective Remarks/Hospital Course 04/12: 71-year-old male presents for evaluation after he fell hitting his head. Per family report they were in the bathroom trying to change his undergarments when he slipped and fell hitting his head. He is not on anticoagulant. The patient is pleasantly confused and patient's daughter states this is his baseline. He has had no altered mental status since the fall. No vomiting. The patient reports a mild headache without radiation. No neck pain or back pain. He has been ambulatory without difficulty since the fall. The CT head performed in the emergency department shows bilateral subdural hematomas in addition to parafalcine subdural hematoma, left frontal and temporal lobe intraparenchymal hemorrhages and subfalcine herniation from [id number]. 04/13: Resting in bed comfortably at the time of my evaluation this morning. Confused, does not know the year. Knows he is in the hospital. Moves all 4 extremity's. Does not appear to be in any acute distress. 04/14: Afebrile. The patient continues to be confused but easily following commands notable systolic ejection murmur, echo pending. Patient scheduled for neurosurgical intervention this afternoon. 04/15: Tmax 99.3. The patient status post craniotomy with evacuation of subdural hematoma last evening, remained intubated, only on sedation with propofol infusion and requiring low-dose phenylephrine to maintain map greater than 65. Sedation was briefly lightened last evening postoperatively, and the patient was extremely agitated. IV fluids changed from D5W to normal saline with [address] brain performed. INR pending. 04/16: Tmax 99.8 Patient agitated during the night , swinging his legs out of the bed while on maximum doses of propofol infusion, fentanyl infusion low-dose added this a.m. Patient's diet advance will begin tube feeds this a.m. The patient was noted to have multifocal PVCs intermittent during the night potassium level 3.2 currently being repleted with K-Phos. 04/17: Tmax 101.6. The patient underwent emergent craniotomy for evacuation of acute recurrent left subdural hematoma last evening. The patient continues on 3 % normal saline, with serial sodium and osmole is being followed. Currently weaning slowly sedation for neuro assessment. Patient noted to have a significant elevation in WBC count of 22, blood cultures urine cultures and sputum cultures obtained. Chest x-ray now showing bilateral lung opacities edema versus possible infectious process being ruled out. Echo revealed patient has severe aortic stenosis with a roommate mean gradient of 44. The patient continues on phenylephrine for vasopressors support at this time. 04/18: Last evening, the patient went into A. fib RVR, heart rate low 100s, with self resolution. This a.m. the patient continues to have sinus rhythm/sinus tachycardia 90-105 with frequent multifocal PVCs. Electrolytes within normal limits. Given the significant medical history for severe aortic stenosis metoprolol 2.5 mg IV for rapid heart rate instituted. The patient continues on phenylephrine infusion for maintenance of a map greater than 65. Propofol is currently being weaned off. EEG revealed last night severe encephalopathy. No change in neurological status but patient still is under sedation patient withdraws to pain bilateral lower extremities and now has spontaneous eye opening intermittently. Leukocytosis notably is resolving. 04/19: Afebrile. Today afternoon the patient was noted to have a seizure, Ativan 1 mg IV push with resolution EEG ordered. Post seizure the patient was noted to have gross hematuria. Coag studies performed within normal limits, fibrinogen level slightly elevated . Creatinine kinase noted to be within normal limits. Hematuria thought to possibly be secondary to acquired von Willebrand's factor secondary to the shear stress from his severe aortic stenosis. DDAVP 2 mcgs IV 1 dose ordered this a.m.. Patient continues on 3% sodium chloride, phenylephrine has been discontinued. 04/20: Remains sedated, orally intubated on mechanical ventilation. Remains on 3 % saline. Off phenylephrine currently. Blood pressure labile. Tolerating tube feeds. 04/21: Remains sedated, orally intubated on mechanical ventilation. Stopping 3% saline. Tolerating tube feeds 04/22: Remains sedated, orally intubated on mechanical ventilation. On Levophed for pressor support. Spiking temperatures. Started on Zosyn yesterday. Continues to have hematuria. One unit PRBCs and fluid bolus ordered. 04/23: Appears to have developed ADRIANNE from osmotic diuresis associated with poorly controlled diabetes. Hyperglycemia exacerbated by dextrose containing solution. Will start constant carb feedings with glucerna, reduce levemir, add SSI coverage, and hydrate to correct fluid depletion. 04/24: Continued serum concentration associated with free water loss. No improvement in neurological function. Suspect osmotic diuresis from elevated glucose but will check urine specific gravity to rule out DI. 04/25: Osmolality improving. Continue DDAVP prn. 04/26: Alertness much improved after Na corrected. Required DDAVP X 2. Gas exchange acceptable and he is strong on CPAP trial. Right arm edematous, ultrasound with no thrombus. 04/27: Extubated > 24 hours ago and breathing comfortably. Protects airway. Electrolytes normalized. Transfer. 04/28: Tolerating extubation but respiratory rate increased, not labored. Osmolality normalized off of DDAVP. 04/29: more somnolent today, but still awake and following commands. sodium mp from 143 to 147 off DDAVP. will restart free water. ROS unobtainable due to patient's baseline mental status. 3-way contreras persists, less hematuria noted. Cr continues to improve. remains stable for transfer to floor. SUBJECTIVE: 04/30: Currently in room 1319 . Resting in sitting position bed. Currently resting in bed in no acute distress. Contreras catheter remains. 05/01: > 5 liters urine with rising BUN/Creatinine - appears to have slipped back into DI. Objective Vital Signs Date Time Temp Pulse Resp B/P (MAP) Pulse Ox O2 Delivery O2 Flow Rate FiO2 05/01/17 06:25 35 05/01/17 05:06 97 05/01/17 04:01 100.0 134 28 72/56 (61) 04/30/17 20:27 Venturi Mask 04/29/17 08:15 1.00 Intake and Output 05/01/17 05/01/17 05/02/17 08:00 16:00 00:00 Output Total 150 ml Balance -150 ml Result Diagram: 05/01/17 0400 05/01/17 0400 Other Results Laboratory Tests Test 05/01/17 06:14 Blood Gas Puncture Site LT BRACHIAL Blood Gas Patient Temperature 98.6 Blood Gas HCO3 27 mmol/L (22-26) Blood Gas Base Excess 2.2 mmol/L (-2-2) Blood Gas Oxygen Saturation 97 % (90-100) Arterial Blood pH 7.40 (7.380-7.420) Arterial Blood Partial Pressure CO2 44 mmHg (38-42) Arterial Blood Partial Pressure O2 166 mmHg (61-120) Arterial Blood Oxygen Content 14.7 Vol % (12.0-20.0) Arterial Blood Carboxyhemoglobin 1.0 % (0-4) Arterial Blood Methemoglobin 1.0 % (0-2) Blood Gas Hemoglobin 10.5 G/DL (12.0-16.0) Oxygen Delivery Device VENTILATOR Blood Gas Ventilator Setting SEE COMMENT Blood Gas Inspired Oxygen 50 % Imaging Last Impressions Head CT 04/27/17 0000 Signed Impressions: Service Date/Time: Thursday, April 27, 2017 11:04 - CONCLUSION: 1. Interval removal of the patient's subdural drain. There is still a small amount of subdural hemorrhage remaining along the left frontal cortex. The remainder of the hemorrhage along the parietal is no longer identified. Findings were discussed in detail above. Luis Moreno MD Chest X-Ray 04/26/17 0400 Signed Impressions: Service Date/Time: Wednesday, April 26, 2017 04:12 - CONCLUSION: No significant interval change. Zeferino Hewitt MD Upper Extremity Ultrasound 04/25/17 0000 Signed Impressions: Service Date/Time: Tuesday, April 25, 2017 11:44 - CONCLUSION: No evidence of right upper extremity DVT. David Meade MD Cervical Spine CT 04/12/17 0000 Signed Impressions: Service Date/Time: Wednesday, April 12, 2017 17:36 - CONCLUSION: Degenerative spondylosis without any significant compromise to the thecal sac or the exiting nerve roots. Maria Guadalupe Alvarado MD Objective Remarks GENERAL: 71-year-old Elderly gentleman. SKIN: Warm and dry. No rash HEAD: Atraumatic. Normocephalic. EYES: Pupils equal and round about 3 mm bilaterally and reactive. No scleral icterus. No injection or drainage. ENT: No nasal bleeding or discharge. Mucous membranes pink and moist. NECK: Trachea midline. Orally intubated. CARDIOVASCULAR: Regular rate and rhythm. NL S1, S2. 2/6 systolic murmur right upper sternal border RESPIRATORY: No wheezing rales or rhonchi, good terese air movement. GASTROINTESTINAL: Abdomen soft, non-tender, nondistended, no guarding. : Contreras catheter in place MUSCULOSKELETAL: Extremities without clubbing, cyanosis. Right arm with resolving gross edema. NEUROLOGICAL: Moves 4 limbs weakly. Withdraws to pain in all 4 extremities. Opens eyes, tracks. follows some simple commands. Procedures 1/2-left frontoparietal craniotomy with evacuation of subacute on chronic SDH 04/17-@ 0000 emergent craniotomy with evacuation of acute recurrent left subdural hematoma A/P Assessment and Plan NEURO/PSYCH TBI -Subdural hematoma S/P Left frontoparietal craniotomy with evacuation of subacute on chronic SDH S/P Emergency revision/evacuation of acute recurrent left subdural hematoma Acute encephalopathy- resolving slowly Dementia disorder NOS Depression -Neurosurgery following. Dr. Odom - Neuro checks per protocol - Repeat CT head per neurosurgery-stable acute subdural hematoma within frontal regions, bilateral 5 mm subfalcine herniation to the right - Seizure prophylaxis with levetiracetam has been discontinued GBG discontinued 04/26 - 04/18 EEG-severe encephalopathy avoid long-acting sedating meds continue home gabapentin. 400 mg 3 times a day Trazodone 100 mg at night, sertraline 150 mg daily and donepezil 10 mg a old discontinued secondary QTc prolongation Acetaminophen 650 mg by NG every 6 hours when necessary fever RESP: COPD Acute hypoxic and hypercarbic respiratory failure - resolving. Nasal cannula to maintain saturations greater than equal to 90% Incentive spirometry while awake Albuterol/ipratropium aerosols every 6 hours with albuterol aerosols 2 hours. Dyspnea - Extubated 04/26. - aggressive pulmonary toilet with a cappella/CPAP incentive spirometry - PRVC vent mode 04/30 CV: Severe Hypotension- -resolved. Sinus tachycardia- resolved. Essential hypertension -/2 EKG prolonged QT 475, continue close monitoring - 04/16 Echo-s Normal left ventricular size. Severe concentric left ventricular hypertrophy. The left ventricular systolic function is low normal with an estimated ejection fraction in the range of 50- 55%. Trace aortic valve regurgitation. Severe aortic valve stenosis. Moderate thickening of the aorticv alve leaflets. Aortic valve mean gradient is 44 mmHg. - Repeat nurse monitoring QTc-holding benazepril and sertraline and donepezil Continue valsartan 80 mg by mouth daily for hypertension/home medication Started on metoprolol tartrate twice a day for hypertension GI: Acute protein calorie Malnutrition - severe - Continue tube feeds Glucerna 1.5 with goal 60cc/hr Famotidine 20 mg by 2 twice a day for bowel regimen Docusate sodium/senna 1 tablet twice a day for bowel regimen : Hematuria Maintain Contreras Dr. Scaglia has followed Neurology recommends replace Contreras catheter with a 18 Beninese coud and irrigate when necessary clots (previously with a 14 Beninese catheter) Continue tolterodine 4 mg by mouth daily for management of bladder spasms Holding trospium 20 mg twice a day ENDO: Diabetes mellitus - improved control. Central Diabetes Insipidus - Hold metformin 500 mg daily/home medication - Insulin sliding scale Novulog -high dose dose regimen, 25 units sliding scale past 24 hours Currently on insulin detemir 20 units twice a day - Unable to get clear urine due to bladder bleed. - Responding well to DDAVP, now stopped 04/28. Currently on free water 300mL po q4h - daily bmp to check sodium - Restart DDAVP ID: Septic shock- resolved. Pneumonia - resolved. Bacteremia- resolved. 04/19-blood cultures-staph intermedius 04/14 sets - contaminant 04/20 - Sputum cultures with e. coli, klebisella. s/p full course of Augie/ tazobactam 04/21 - 04/27. monitor off abx for fever, signs of infection. HEME: Last CBC 04/25. Leukocytosis. Recheck in a.m. 05/01 FEN: Hypernatremia See above treatment plan Continue free water 300 cc every 4 hours. Recheck BMP in a.m. Replace electrolytes as clinically indicated MSK PT evaluate and treat DVT GI prophylaxis - Teds SCDs - No pharmacological DVT prophylaxis due to subdural hematoma - Pepcid BID Level II follow-up Patient is stable from a critical care medicine standpoint. Assign care to hospitalist when transfer to floor. Roland Figueora MD May 01, 2017 07:26
[2017-05-01] MEDS: VALSARTAN 80 MG TAB PO SCH (09:00)
[2017-05-01] MEDS: INSULIN DETEMIR 100 UNITS/ML VIAL SQ SCH ×2 (09:00→21:00)
[2017-05-01] MEDS: TOLTERODINE TARTRATE 4 MG CAP LA PO SCH (09:00)
[2017-05-01] MEDS: ARTIFICIAL TEARS OPTH OINT 3.5 APPLIC/3.5 GM TUBO EACH EYE SCH ×2 (09:00→19:44)
--- NOTE | 2017-05-01 09:44 | HHI.NSPN ---
(Lahco Lacey Betsey JOSEPH) History Chief Complaint: Unable to obtain due to patient's clinical condition. (Lacho Lacey LINE PERSON) Interval History 04/12: Mr. Hope is a 71-year-old male who presented to the emergency room today after he fell at home in the presence of his daughter. She states that he lost his balance while trying to put some close on, and fell and struck his head. There was no loss of consciousness. No seizure activity or nausea or emesis reported. The patient has baseline dementia and confusion, but no definite overall change in his mentation after the fall earlier today, according to his daughter, who he lives with. He presently has no complaint of headache. He does have some chronic neck and back pain. 04/13: The patient was examined in the presence of the family today and a more detailed history has been obtained. They indicate chronic progressive dementia to the point that the patient has had to move in with his daughter earlier this year. He cannot care for himself. He is usually quite confused, conversing with only a few words or short sentences and unable to stay on task with conversations. He is usually very active, fidgeting constantly. They state that his mental status today is not significantly changed from his overall baseline. He did go to the emergency room a couple of weeks ago at [facility] due to some pressure sensation or frontal headaches and was diagnosed with sinus congestion. A CT scan of the head was not obtained. He has had no definite falls over the past few weeks up until yesterday. 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 Post-operatively he returned to [facility] for further care and monitoring. 04/15: This morning the patient is obtunded and has no sedation infusing. He does withdraw to noxious stimulation. He does not open his eyes but does have facial grimacing and turns his head to noxious stimulation. ADDENDUM at 1854: Patient was sedated with propofol 50 mcg/kg/min when seen, the pump was not visible at the time. BET. 04/16: When seen the patient is obtunded but does have the propofol drip infusing. Nursing reports that he moves all extremities but does become agitated when the propofol is weaned down. He moves all extremities to noxious stimulation when seen but did not follow any commands. 04/17: The patient remains obtunded and continues to be sedated with a propofol drip. He is now on phenylephrine for blood pressure support. He does not respond to commands and only withdraws the lower extremities to noxious stimulation. He does have some facial grimacing but no eye opening to noxious stimulation. He did go emergently late last night/early this morning for a revision of the left frontoparietal craniotomy for evacuation of a recurrent left hemisphere subdural haematoma. 04/18/17: intubated, propofol just turned off, intermittent movement to ext per nursing, not opening eyes. 04/19/17: nursing reports seizures yesterday, repeat CT head stable residual SDH and 5 mm midline shift. Awaiting EEG. 04/20: Patient with right eye partially opened when seen but Nursing just stimulated patient. He remains intubated and mechanically ventilated. He withdraws to noxious stimuli to the lower extremities but not the upper. He does have facial grimacing to noxious stimulation. Nursing reports that overnight KWAME #1 had 170 mL of yellowish drainage. She also says the patient has been off sedation approximately 36 hours. 04/21: The patient was examined in the presence of the family today and a more detailed history has been obtained. They indicate chronic progressive dementia to the point that the patient has had to move in with his daughter earlier this year. He cannot care for himself. He is usually quite confused, conversing with only a few words or short sentences and unable to stay on task with conversations. He is usually very active, fidgeting constantly. They state that his mental status today is not significantly changed from his overall baseline. He did go to the emergency room a couple of weeks ago at [facility] due to some pressure sensation or frontal headaches and was diagnosed with sinus congestion. A CT scan of the head was not obtained. He has had no definite falls over the past few weeks up until yesterday. 04/23: When seen the patient did have his eyes partially opened and he opened them wider to voice. He was moving the left upper and both lower extremities to varying degrees spontaneously. It was questionable if he moved the left lower to command but did move all extremities to noxious stimulation. 04/24: It is difficult to say if the patient was asleep when seen or not. It did appear he had his eyes partially open since Nursing was in the room. He did open them briefly to my voice. He spontaneously moved the left hand some and gripped this practitioner's hand. He moved the lower extremities to command. There was no noted movement of the right upper to noxious stimulation but he did have facial grimacing. 04/25: Patient is sedated but will respond to painful stimulation. 04/26: Patient now extubated and much more alert and responsive. He is not indicating any significant pain complaints. 04/27: This morning the patient's eyes are open. He did squeeze to command with the left hand and had withdrawal of the other extremities to noxious stimulation. He has been extubated but is nonverbal. He has mild respiratory effort on a nasal cannula. 04/28: When seen this morning the patient is lethargic. He did not open his eyes to voice or follow any commands. He did have slight withdrawal of the left upper and both lower extremities to noxious stimulation. He did have facial grimacing to noxious stimulation as well. 04/29: The patient is awake this morning. He is on a nasal cannula. He squeezes with the left hand when a hand is placed in it. He moves both feet to noxious stimulation. He had no movement of the right upper extremity. 04/30: This morning the patient is sitting up in the cardiac chair with his eyes closed. There was no evident eye opening to voice. He was noted to move the left lower extremity spontaneously. He did give a slight squeeze with the left hand to command and appears to have tried to give a thumbs up when asked to. He did move the right lower extremity to noxious stimulation and there was muscle contraction noted to the right forearm to noxious stimulation. 05/01: When seen this morning the patient is intubated and on CPAP. He does not respond to any commands or open his eyes. He does spontaneously move the left upper extremity and both lower to noxious stimulation. There was no response with the right upper. Nursing reports that during the night his systolic blood pressure dropped into the 70s, his respirations were in the 30s and he was tachycardiac in the 130s. He was therefore emergently intubated. He was given three litres of intravenous fluids and his systolic blood pressure improved. (Lacho Lacey) System Review Comments Unable to obtain due to patient's clinical condition. (Lacho Lacey) Exam Results 04/29/17 04/29/17 04/30/17 04/30/17 05/01/17 05/01/17 06:00 18:00 06:00 18:00 06:00 18:00 Intake Total 650 ml 1695 ml 467 ml 700 ml Output Total 400 ml 3325 ml 4750 ml 300 ml Balance 250 ml -1630 ml 467 ml -4750 ml 400 ml Intake Oral 360 ml 0 ml IV Total 0 ml Tube Feeding 550 ml 675 ml 467 ml 500 ml Other 100 ml 660 ml 200 ml Output Urine Total 400 ml 3325 ml 4750 ml 300 ml Gastric Drainage Total 0 ml Tube Feeding Residual Discard 0 ml # Bowel Movements 1 0 Vital Signs Date Time Temp Pulse Resp B/P (MAP) Pulse Ox O2 Delivery O2 Flow Rate FiO2 05/01/17 08:00 95 35 05/01/17 08:00 35 05/01/17 06:25 35 05/01/17 05:06 97 50 05/01/17 04:40 50 05/01/17 04:01 100.0 134 28 72/56 (61) 83 05/01/17 03:45 96 50 05/01/17 00:35 98.5 123 28 125/75 (92) 96 04/30/17 20:34 98.1 122 24 129/74 (92) 91 04/30/17 20:27 97 Venturi Mask 35 04/30/17 20:00 128 04/30/17 16:04 98.8 119 25 147/99 (115) 96 04/30/17 12:21 98.3 112 23 140/67 (91) 93 04/30/17 09:36 88 04/30/17 08:30 97.5 103 23 154/87 (109) 90 04/30/17 08:00 94 21 04/30/17 04:14 98.3 92 24 138/63 (88) 92 04/30/17 00:00 97.0 92 16 124/63 (83) 93 04/29/17 20:00 109 04/29/17 19:00 123 04/29/17 19:00 97.2 123 24 130/61 (84) 92 04/29/17 16:00 98.0 106 26 121/58 (79) 93 04/29/17 12:00 99.2 112 28 127/89 (102) 93 04/29/17 08:15 98 Nasal Cannula 1.00 04/29/17 08:00 97 Nasal Cannula 1.00 04/29/17 08:00 98.5 100 28 118/56 (76) 97 04/29/17 08:00 100 04/29/17 04:00 98.6 95 23 96 04/29/17 00:00 98.6 101 22 118/64 (82) 95 04/28/17 20:21 95 Nasal Cannula 1.00 04/28/17 20:00 106 04/28/17 20:00 97.8 109 25 111/59 (76) 95 04/28/17 19:46 94 Nasal Cannula 2.00 04/28/17 16:00 102 04/28/17 16:00 98.2 102 30 94/53 (67) 94 04/28/17 12:00 109 04/28/17 12:00 98.6 109 24 96/51 (66) 94 (Lacho Lacey) Physical Examination GENERAL: Lethargic, no sedation infusing, no apparent distress. HEENT: Left craniotomy surgical incision well approximated, some crusting, no evident drainage, erythema or streaking. Pupils 2mm. Orally intubated. NGT left nare. Erosion of the philtrum. MUSCULOSKELETAL: No clubbing or deformity evident. Moving LUE spontaneously. NEUROLOGICAL: Lethargic, w/o any sedation infusing. No eye opening this morning. Nonverbal. Facial grimacing to all noxious stimulation. Moving LUE spontaneously, questionable squeeze with the left hand to command. Moved both lower extremities to local noxious stimulation. No response with the RUE. Did move lower extremities to central noxious stimulation but not the upper. (Lacho Lacey) Lab, Micro, Other Results Recent Impressions Chest X-Ray 05/01/17 0000 Signed Impressions: Service Date/Time: Monday, May 01, 2017 04:41 - CONCLUSION: 1. Stable ETT and NGT. 2. Stable minimal bibasilar airspace disease, likely atelectasis. 3. No significant interval change. Thierry Barros MD Laboratory Tests Test 04/28/17 17:04 04/29/17 04:38 04/30/17 03:55 05/01/17 04:00 Potassium Level 3.5 MEQ/L 3.8 MEQ/L 3.8 MEQ/L 5.2 MEQ/L Blood Urea Nitrogen 19 MG/DL 21 MG/DL 39 MG/DL Creatinine 0.68 MG/DL 0.66 MG/DL 1.66 MG/DL Random Glucose 164 MG/DL 174 MG/DL 244 MG/DL Calcium Level 8.9 MG/DL 8.8 MG/DL 8.8 MG/DL Sodium Level 147 MEQ/L 146 MEQ/L 145 MEQ/L Chloride Level 110 MEQ/L 110 MEQ/L 109 MEQ/L Carbon Dioxide Level 30.3 MEQ/L 30.4 MEQ/L 28.7 MEQ/L Anion Gap 7 MEQ/L 6 MEQ/L 7 MEQ/L Estimat Glomerular Filtration Rate 115 ML/MIN 119 ML/MIN 41 ML/MIN White Blood Count 24.5 TH/MM3 Red Blood Count 4.26 MIL/MM3 Hemoglobin 12.0 GM/DL Hematocrit 36.4 % Mean Corpuscular Volume 85.4 FL Mean Corpuscular Hemoglobin 28.1 PG Mean Corpuscular Hemoglobin Concent 32.9 % Red Cell Distribution Width 16.2 % Platelet Count 710 TH/MM3 Mean Platelet Volume 8.1 FL Neutrophils (%) (Auto) 92.9 % Lymphocytes (%) (Auto) 1.1 % Monocytes (%) (Auto) 4.7 % Eosinophils (%) (Auto) 0.1 % Basophils (%) (Auto) 1.2 % Neutrophils # (Auto) 22.8 TH/MM3 Lymphocytes # (Auto) 0.3 TH/MM3 Monocytes # (Auto) 1.1 TH/MM3 Eosinophils # (Auto) 0.0 TH/MM3 Basophils # (Auto) 0.3 TH/MM3 CBC Comment DIFF FINAL Differential Comment Total Protein 6.8 GM/DL Albumin 2.1 GM/DL Phosphorus Level 5.2 MG/DL Magnesium Level 2.4 MG/DL Alkaline Phosphatase 75 U/L Aspartate Amino Transf (AST/SGOT) 30 U/L Alanine Aminotransferase (ALT/SGPT) 28 U/L Total Bilirubin 0.4 MG/DL Direct Bilirubin 0.1 MG/DL Indirect Bilirubin 0.3 MG/DL Test 05/01/17 06:14 Blood Gas Puncture Site LT BRACHIAL Blood Gas Patient Temperature 98.6 Blood Gas HCO3 27 mmol/L Blood Gas Base Excess 2.2 mmol/L Blood Gas Oxygen Saturation 97 % Arterial Blood pH 7.40 Arterial Blood Partial Pressure CO2 44 mmHg Arterial Blood Partial Pressure O2 166 mmHg Arterial Blood Oxygen Content 14.7 Vol % Arterial Blood Carboxyhemoglobin 1.0 % Arterial Blood Methemoglobin 1.0 % Blood Gas Hemoglobin 10.5 G/DL Oxygen Delivery Device VENTILATOR Blood Gas Ventilator Setting SEE COMMENT Blood Gas Inspired Oxygen 50 % (Lacho Lacey) Medical Decision Making Impression and Plan Impression: 1. 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 Dementia 4. Cardiac murmur Patient lethargic, does not appear to be following any commands, moving LUE spontaneously and both lower extremities to noxious stimulation, no movement of the RLE to noxious stimulation. Reviewed labs for today. Leukocytosis w/neutrophilia. Mild anaemia. Thrombocytosis. Sodium 145. Hyperkalemia & hyperphosphataemia. Interval decrease in renal function. CT brain demonstrated minimal left frontal subdural haematoma, right parietal cortices hygroma, no significant change. EEG consistent w/severe encephalopathy. KWAME #1 was removed . KWAME #2 removed . POD #17 () s/p: Left frontoparietal craniotomy for evacuation of subacute on chronic subdural hematoma Postoperative Diagnosis: (1) Subdural hematoma, chronic (2) Acute subdural hematoma 1. Left hemisphere subacute on chronic subdural hematoma 2. Acute right frontal subdural hematoma POD #14 () s/p: Revision left frontoparietal craniotomy evacuation of recurrent left hemisphere subdural hematoma Postoperative Diagnosis: (1) Acute subdural hematoma Recurrent left hemisphere subdural hematoma Plan: Primary management per [employer]. Neuro checks. Repeat CT brain for any decline in neuro status. Mechanical DVT prophylaxis. Hold pharmacologic DVT prophylaxis. Stress ulcer prophylaxis. CT brain now. (Lacho Lacey) Attending Statement The exam, history, and the medical decision-making described in the above note were completed with the assistance of the mid-level provider. I reviewed and agree with the findings presented. I attest that I had a [id number] encounter with the patient on the same day, and personally performed and documented my assessment and findings in the medical record. My examination 05/01/17 reveals patient to be lethargic to obtunded. Mild eye opening to sternal rub Mild conjugate extraocular movements Moves left upper and lower extremity spontaneously deep pain. Right hemiparesis No significant neurologic changes Okay to wean sedation as tolerated for ventilator support Discussed with family at bedside regarding prognosis and treatment options. They will continue observation at this point. May need tracheostomy and PEG tube, although patient's family somewhat uncertain whether they wished to proceed with these measures if his prognosis is not good. (Sylvester Odom MD) Lacho Lacey May 01, 2017 09:44 Sylvester Odom MD May 04, 2017 21:12
[2017-05-01] MEDS: SODIUM CHLORIDE 0.9% FLUSH 10 ML FLUSH IV FLUSH SCH ×2 (10:21→19:44)
[2017-05-01] MEDS: FAMOTIDINE 20 MG TAB NG SCH ×2 (10:22→19:44)
[2017-05-01] MEDS: DOCUSATE SODIUM 50 MG/SENNA 8.6 MG TAB PO SCH ×2 (10:22→19:44)
[2017-05-01] MEDS: PRAVASTATIN SOD 40 MG TAB PO SCH (10:22)
[2017-05-01] MEDS: METOPROLOL TARTRATE 25 MG TAB PO SCH ×2 (10:22→21:00)
[2017-05-01] MEDS: GABAPENTIN 400 MG CAP PO SCH ×3 (10:22→18:00)
--- NOTE | 2017-05-01 12:03 | RADRPT ---
EXAM DATE/TIME: 05/01/2017 11:52 [facility] COMPARISON: CT BRAIN W/O CONTRAST, April 27, 2017, 11:04. INDICATIONS : Followup subdural hematoma. RADIATION DOSE: 40.89 CTDIvol (mGy) MEDICAL HISTORY : Cardiovascular disease. Hypertension. Carcinoma, prostate.Diabetes, Rad Tx. SURGICAL HISTORY : None. ENCOUNTER: Subsequent ACUITY: 4 - 6 days PAIN SCALE: 0/10 LOCATION: cranial TECHNIQUE: Multiple contiguous axial images were obtained of the head. Using automated exposure control and adj ustment of the mA and/or kV according to patient size, radiation dose was kept as low as reasonably a chievable to obtain optimal diagnostic quality images. DICOM format image data is available electro nically for review and comparison. FINDINGS: There has been a slight interval decrease in the size of the left subdural hematoma. The high de nsity is mildly decreased and is more patchy in appearance. The previously noted gas collection has d ecreased in size as well. The more chronic subdural hematoma along the left frontal and parietal conv exities and left parietal convexities are without significant change. There is no new hemorrhage or m ass effect. The posterior fossa and brainstem remain unremarkable. The bone windows again demonstrate postsurgical changes status post left frontal parietal craniotomy CONCLUSION: 1. Mild interval improvement in left subdural hematoma. 2. 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 3. No new hemorrhage or mass effect. Simon Haley MD on May 01, 2017 at 11:58 Board Certified Radiologist. This report was verified electronically.
[2017-05-01] MEDS: DESMOPRESSIN ACETATE 4 MCG/ML VIAL IV PUSH PRN (19:43)
[2017-05-02] VITALS (18 sets, daily range): BP systolic 87–161; BP diastolic 52–72; PULSE 87–130; RESP 18–23; TEMP 98.2–98.9; O2SAT 94–100
[2017-05-02] MEDS: RESP: ALBUTEROL 2.5 MG/IPRATROPIUM 0.5 MG NEB (SCH) NEB ×4 (03:30→20:22)
[2017-05-02] MEDS: FREE WATER G-TUBE SCH ×6 (04:00→20:00)
[2017-05-02] MEDS: CHLORHEXIDINE GLUCONATE 2 % 1 PACK (2 CLOTHS) TOP SCH (04:00)
[2017-05-02] MEDS: INSULIN ASPART SUPPLEMENTAL SCALE SQ SCH ×4 (05:23→18:25)
[2017-05-02 06:01] LABS: BICARBONATE 31.1 MEQ/L (21.0-32.0); CALCIUM 8.8 MG/DL (8.5-10.1); CREATININE 1.03 MG/DL (0.60-1.30)
[2017-05-02] MEDS: DESMOPRESSIN ACETATE 4 MCG/ML VIAL IV PUSH PRN ×2 (06:32→18:47)
[2017-05-02] MEDS: INSULIN DETEMIR 100 UNITS/ML VIAL SQ SCH ×2 (09:00→21:00)
[2017-05-02] MEDS: TOLTERODINE TARTRATE 4 MG CAP LA PO SCH (09:00)
--- NOTE | 2017-05-02 10:05 | HHI.NSPN ---
(Lacho Lacey Betsey JOSEPH) History Chief Complaint: Unable to obtain due to patient's clinical condition. (Lacho Lacey ACETYLENE CUTTER) Interval History 04/12: Mr. Hope is a 71-year-old male who presented to the emergency room today after he fell at home in the presence of his daughter. She states that he lost his balance while trying to put some close on, and fell and struck his head. There was no loss of consciousness. No seizure activity or nausea or emesis reported. The patient has baseline dementia and confusion, but no definite overall change in his mentation after the fall earlier today, according to his daughter, who he lives with. He presently has no complaint of headache. He does have some chronic neck and back pain. 04/13: The patient was examined in the presence of the family today and a more detailed history has been obtained. They indicate chronic progressive dementia to the point that the patient has had to move in with his daughter earlier this year. He cannot care for himself. He is usually quite confused, conversing with only a few words or short sentences and unable to stay on task with conversations. He is usually very active, fidgeting constantly. They state that his mental status today is not significantly changed from his overall baseline. He did go to the emergency room a couple of weeks ago at [facility] due to some pressure sensation or frontal headaches and was diagnosed with sinus congestion. A CT scan of the head was not obtained. He has had no definite falls over the past few weeks up until yesterday. 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 Post-operatively he returned to [facility] for further care and monitoring. 04/15: This morning the patient is obtunded and has no sedation infusing. He does withdraw to noxious stimulation. He does not open his eyes but does have facial grimacing and turns his head to noxious stimulation. ADDENDUM at 1854: Patient was sedated with propofol 50 mcg/kg/min when seen, the pump was not visible at the time. BET. 04/16: When seen the patient is obtunded but does have the propofol drip infusing. Nursing reports that he moves all extremities but does become agitated when the propofol is weaned down. He moves all extremities to noxious stimulation when seen but did not follow any commands. 04/17: The patient remains obtunded and continues to be sedated with a propofol drip. He is now on phenylephrine for blood pressure support. He does not respond to commands and only withdraws the lower extremities to noxious stimulation. He does have some facial grimacing but no eye opening to noxious stimulation. He did go emergently late last night/early this morning for a revision of the left frontoparietal craniotomy for evacuation of a recurrent left hemisphere subdural haematoma. 04/18/17: intubated, propofol just turned off, intermittent movement to ext per nursing, not opening eyes. 04/19/17: nursing reports seizures yesterday, repeat CT head stable residual SDH and 5 mm midline shift. Awaiting EEG. 04/20: Patient with right eye partially opened when seen but Nursing just stimulated patient. He remains intubated and mechanically ventilated. He withdraws to noxious stimuli to the lower extremities but not the upper. He does have facial grimacing to noxious stimulation. Nursing reports that overnight KWAME #1 had 170 mL of yellowish drainage. She also says the patient has been off sedation approximately 36 hours. 04/21: The patient was examined in the presence of the family today and a more detailed history has been obtained. They indicate chronic progressive dementia to the point that the patient has had to move in with his daughter earlier this year. He cannot care for himself. He is usually quite confused, conversing with only a few words or short sentences and unable to stay on task with conversations. He is usually very active, fidgeting constantly. They state that his mental status today is not significantly changed from his overall baseline. He did go to the emergency room a couple of weeks ago at [facility] due to some pressure sensation or frontal headaches and was diagnosed with sinus congestion. A CT scan of the head was not obtained. He has had no definite falls over the past few weeks up until yesterday. 04/23: When seen the patient did have his eyes partially opened and he opened them wider to voice. He was moving the left upper and both lower extremities to varying degrees spontaneously. It was questionable if he moved the left lower to command but did move all extremities to noxious stimulation. 04/24: It is difficult to say if the patient was asleep when seen or not. It did appear he had his eyes partially open since Nursing was in the room. He did open them briefly to my voice. He spontaneously moved the left hand some and gripped this practitioner's hand. He moved the lower extremities to command. There was no noted movement of the right upper to noxious stimulation but he did have facial grimacing. 04/25: Patient is sedated but will respond to painful stimulation. 04/26: Patient now extubated and much more alert and responsive. He is not indicating any significant pain complaints. 04/27: This morning the patient's eyes are open. He did squeeze to command with the left hand and had withdrawal of the other extremities to noxious stimulation. He has been extubated but is nonverbal. He has mild respiratory effort on a nasal cannula. 04/28: When seen this morning the patient is lethargic. He did not open his eyes to voice or follow any commands. He did have slight withdrawal of the left upper and both lower extremities to noxious stimulation. He did have facial grimacing to noxious stimulation as well. 04/29: The patient is awake this morning. He is on a nasal cannula. He squeezes with the left hand when a hand is placed in it. He moves both feet to noxious stimulation. He had no movement of the right upper extremity. 04/30: This morning the patient is sitting up in the cardiac chair with his eyes closed. There was no evident eye opening to voice. He was noted to move the left lower extremity spontaneously. He did give a slight squeeze with the left hand to command and appears to have tried to give a thumbs up when asked to. He did move the right lower extremity to noxious stimulation and there was muscle contraction noted to the right forearm to noxious stimulation. 05/01: When seen this morning the patient is intubated and on CPAP. He does not respond to any commands or open his eyes. He does spontaneously move the left upper extremity and both lower to noxious stimulation. There was no response with the right upper. Nursing reports that during the night his systolic blood pressure dropped into the 70s, his respirations were in the 30s and he was tachycardiac in the 130s. He was therefore emergently intubated. He was given three litres of intravenous fluids and his systolic blood pressure improved. 05/02: The patient is seen moving both lower extremities spontaneously. He remains intubated and mechanically ventilated. He is not on any sedation. His daughter is present and states that he did open his eyes briefly to her voice and that he was squeezing her hand. He did squeeze this practitioner's hand to command and moved both lower extremities to noxious stimulation. There was no movement of the right upper. (Lacho Lacey) System Review Comments Unable to obtain due to patient's clinical condition. (Lacho Lacey) Exam Results 04/30/17 04/30/17 05/01/17 05/01/17 05/02/17 05/02/17 06:00 18:00 06:00 18:00 06:00 18:00 Intake Total 467 ml 700 ml 1300 ml 900 ml Output Total 4750 ml 300 ml 1475 ml 1250 ml Balance 467 ml -4750 ml 400 ml -175 ml -350 ml Intake Oral 0 ml IV Total 0 ml 1000 ml Tube Feeding 467 ml 500 ml Other 200 ml 300 ml 900 ml Output Urine Total 4750 ml 300 ml 1475 ml 1250 ml # Bowel Movements 0 0 Vital Signs Date Time Temp Pulse Resp B/P (MAP) Pulse Ox O2 Delivery O2 Flow Rate FiO2 05/02/17 08:59 98 35 05/02/17 06:00 97 05/02/17 04:00 35 05/02/17 04:00 96 05/02/17 04:00 98.6 96 18 147/68 (94) 99 05/02/17 03:30 99 35 05/02/17 02:00 88 05/02/17 00:00 35 05/02/17 00:00 98.2 90 20 161/69 (99) 100 05/02/17 00:00 90 05/01/17 22:28 100 35 05/01/17 22:00 86 05/01/17 20:02 100 35 05/01/17 20:00 97.8 92 16 100/58 (72) 100 05/01/17 20:00 35 05/01/17 20:00 92 05/01/17 18:00 97 05/01/17 16:00 35 05/01/17 16:00 98 05/01/17 16:00 98.8 98 18 89/54 (66) 96 05/01/17 15:29 99 35 05/01/17 14:00 83 05/01/17 12:06 100 100 05/01/17 12:00 105 05/01/17 12:00 98.7 105 20 135/68 (90) 98 05/01/17 12:00 35 05/01/17 11:09 95 35 05/01/17 10:00 111 05/01/17 08:00 98.7 103 15 94/53 (67) 99 05/01/17 08:00 103 05/01/17 08:00 95 35 05/01/17 08:00 35 05/01/17 08:00 35 05/01/17 06:25 35 05/01/17 05:06 97 50 05/01/17 04:40 50 05/01/17 04:01 100.0 134 28 72/56 (61) 83 05/01/17 03:45 96 50 05/01/17 00:35 98.5 123 28 125/75 (92) 96 04/30/17 20:34 98.1 122 24 129/74 (92) 91 04/30/17 20:27 97 Venturi Mask 35 04/30/17 20:00 128 04/30/17 16:04 98.8 119 25 147/99 (115) 96 04/30/17 12:21 98.3 112 23 140/67 (91) 93 04/30/17 09:36 88 04/30/17 08:30 97.5 103 23 154/87 (109) 90 04/30/17 08:00 94 21 04/30/17 04:14 98.3 92 24 138/63 (88) 92 18 00:00 97.0 92 16 124/63 (83) 93 04/29/17 20:00 109 04/29/17 19:00 123 04/29/17 19:00 97.2 123 24 130/61 (84) 92 04/29/17 16:00 98.0 106 26 121/58 (79) 93 04/29/17 12:00 99.2 112 28 127/89 (102) 93 (Lacho Lacey) Physical Examination GENERAL: Lethargic, no sedation infusing, no apparent distress. HEENT: Left craniotomy surgical incision well approximated, some crusting, no evident drainage, erythema or streaking. PERRLA 3mm. Orally intubated. NGT left nare. Erosion of the philtrum. MUSCULOSKELETAL: No clubbing or deformity evident. Moving BLE spontaneously. NEUROLOGICAL: Lethargic, w/o any sedation infusing. No eye opening this morning but daughter reports he did to voice. Nonverbal, intubated. Moving BLE spontaneously & to local noxious stimulation, did squeeze with the left hand to command after this practitioner's hand was in his for a minute w/o any squeezing. No response with the RUE. (Lacho Lacey) Lab, Micro, Other Results This practitioner independently reviewed the CT brain completed yesterday and compared it with that of and I concur with the Radiologist's findings. Recent Impressions Head CT 05/01/17 0927 Signed Impressions: Service Date/Time: Monday, May 01, 2017 11:52 - CONCLUSION: 1. Mild interval improvement in left subdural hematoma. 2. 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 3. No new hemorrhage or mass effect. Simon Haley MD Chest X-Ray 05/01/17 0000 Signed Impressions: Service Date/Time: Monday, May 01, 2017 04:41 - CONCLUSION: 1. Stable ETT and NGT. 2. Stable minimal bibasilar airspace disease, likely atelectasis. 3. No significant interval change. Thierry Barros MD Laboratory Tests Test 04/30/17 03:55 05/01/17 04:00 05/01/17 06:14 05/02/17 04:40 Blood Urea Nitrogen 21 MG/DL 39 MG/DL 36 MG/DL Creatinine 0.66 MG/DL 1.66 MG/DL 1.03 MG/DL Random Glucose 174 MG/DL 244 MG/DL 148 MG/DL Calcium Level 8.8 MG/DL 8.8 MG/DL 8.8 MG/DL Sodium Level 146 MEQ/L 145 MEQ/L 149 MEQ/L Potassium Level 3.8 MEQ/L 5.2 MEQ/L 3.7 MEQ/L Chloride Level 110 MEQ/L 109 MEQ/L 111 MEQ/L Carbon Dioxide Level 30.4 MEQ/L 28.7 MEQ/L 31.1 MEQ/L Anion Gap 6 MEQ/L 7 MEQ/L 7 MEQ/L Estimat Glomerular Filtration Rate 119 ML/MIN 41 ML/MIN 71 ML/MIN White Blood Count 24.5 TH/MM3 Red Blood Count 4.26 MIL/MM3 Hemoglobin 12.0 GM/DL Hematocrit 36.4 % Mean Corpuscular Volume 85.4 FL Mean Corpuscular Hemoglobin 28.1 PG Mean Corpuscular Hemoglobin Concent 32.9 % Red Cell Distribution Width 16.2 % Platelet Count 710 TH/MM3 Mean Platelet Volume 8.1 FL Neutrophils (%) (Auto) 92.9 % Lymphocytes (%) (Auto) 1.1 % Monocytes (%) (Auto) 4.7 % Eosinophils (%) (Auto) 0.1 % Basophils (%) (Auto) 1.2 % Neutrophils # (Auto) 22.8 TH/MM3 Lymphocytes # (Auto) 0.3 TH/MM3 Monocytes # (Auto) 1.1 TH/MM3 Eosinophils # (Auto) 0.0 TH/MM3 Basophils # (Auto) 0.3 TH/MM3 CBC Comment DIFF FINAL Differential Comment Total Protein 6.8 GM/DL Albumin 2.1 GM/DL Phosphorus Level 5.2 MG/DL Magnesium Level 2.4 MG/DL Alkaline Phosphatase 75 U/L Aspartate Amino Transf (AST/SGOT) 30 U/L Alanine Aminotransferase (ALT/SGPT) 28 U/L Total Bilirubin 0.4 MG/DL Direct Bilirubin 0.1 MG/DL Indirect Bilirubin 0.3 MG/DL Blood Gas Puncture Site LT BRACHIAL Blood Gas Patient Temperature 98.6 Blood Gas HCO3 27 mmol/L Blood Gas Base Excess 2.2 mmol/L Blood Gas Oxygen Saturation 97 % Arterial Blood pH 7.40 Arterial Blood Partial Pressure CO2 44 mmHg Arterial Blood Partial Pressure O2 166 mmHg Arterial Blood Oxygen Content 14.7 Vol % Arterial Blood Carboxyhemoglobin 1.0 % Arterial Blood Methemoglobin 1.0 % Blood Gas Hemoglobin 10.5 G/DL Oxygen Delivery Device VENTILATOR Blood Gas Ventilator Setting SEE COMMENT Blood Gas Inspired Oxygen 50 % (Lacho Lacey) Medical Decision Making Impression and Plan Impression: 1. 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 Dementia 4. Cardiac murmur Patient lethargic, did squeeze w/left hand to command, moving BLE spontaneously and to noxious stimulation, no movement of the RLE to noxious stimulation. Reviewed labs for today. Sodium 149. Resolution of hyperkalemia. Interval improvement in renal function. CT brain demonstrated improvement in the left frontal subdural haematoma and chronic hygromas, no haemorrhage or mass effect. EEG consistent w/severe encephalopathy. KWAME #1 was removed . KWAME #2 removed . POD #18 () s/p: Left frontoparietal craniotomy for evacuation of subacute on chronic subdural hematoma Postoperative Diagnosis: (1) Subdural hematoma, chronic (2) Acute subdural hematoma 1. Left hemisphere subacute on chronic subdural hematoma 2. Acute right frontal subdural hematoma POD #15 () s/p: Revision left frontoparietal craniotomy evacuation of recurrent left hemisphere subdural hematoma Postoperative Diagnosis: (1) Acute subdural hematoma Recurrent left hemisphere subdural hematoma Plan: Discussed plan of care with patient's daughter. Primary management per [facility]rel [facility]. Neuro checks. Repeat CT brain for any decline in neuro status. Mechanical DVT prophylaxis. Hold pharmacologic DVT prophylaxis. Stress ulcer prophylaxis. (Lacho Lacey) Attending Statement The exam, history, and the medical decision-making described in the above note were completed with the assistance of the mid-level provider. I reviewed and agree with the findings presented. I attest that I had a [id number] encounter with the patient on the same day, and personally performed and documented my assessment and findings in the medical record. My examination of 05/02/2017 revealed the patient to be moderately lethargic. Opens eyes briefly to sternal rub. Focuses a little to the left with conjugate gaze. Appears to grasp left hand intermittent to command. Possible slight improvement in neurologic exam. CT scan head 05/01/2017 revealed stable postoperative study without significant new subdural or parenchymal hemorrhage. Residual subdural hematoma seemed to be resolving gradually. He is off sedation. Continue vent wean as tolerated (Sylvester Odom MD) Lacho Lacey May 02, 2017 10:04 Sylvester Odom MD May 04, 2017 21:16
[2017-05-02] MEDS: ARTIFICIAL TEARS OPTH OINT 3.5 APPLIC/3.5 GM TUBO EACH EYE SCH ×2 (10:25→21:00)
[2017-05-02] MEDS: FAMOTIDINE 20 MG TAB NG SCH ×2 (10:26→21:32)
[2017-05-02] MEDS: SODIUM CHLORIDE 0.9% FLUSH 10 ML FLUSH IV FLUSH SCH ×2 (10:26→21:00)
[2017-05-02] MEDS: VALSARTAN 80 MG TAB PO SCH (10:29)
[2017-05-02] MEDS: PRAVASTATIN SOD 40 MG TAB PO SCH (10:30)
[2017-05-02] MEDS: DOCUSATE SODIUM 50 MG/SENNA 8.6 MG TAB PO SCH ×2 (10:30→21:32)
[2017-05-02] MEDS: METOPROLOL TARTRATE 25 MG TAB PO SCH ×2 (10:30→21:00)
[2017-05-02] MEDS: GABAPENTIN 400 MG CAP PO SCH ×3 (10:30→18:24)
--- NOTE | 2017-05-02 10:39 | HHI.CCPN ---
Subjective Remarks/Hospital Course 04/12: 71-year-old male presents for evaluation after he fell hitting his head. Per family report they were in the bathroom trying to change his undergarments when he slipped and fell hitting his head. He is not on anticoagulant. The patient is pleasantly confused and patient's daughter states this is his baseline. He has had no altered mental status since the fall. No vomiting. The patient reports a mild headache without radiation. No neck pain or back pain. He has been ambulatory without difficulty since the fall. The CT head performed in the emergency department shows bilateral subdural hematomas in addition to parafalcine subdural hematoma, left frontal and temporal lobe intraparenchymal hemorrhages and subfalcine herniation from [id number]. 04/13: Resting in bed comfortably at the time of my evaluation this morning. Confused, does not know the year. Knows he is in the hospital. Moves all 4 extremity's. Does not appear to be in any acute distress. 04/14: Afebrile. The patient continues to be confused but easily following commands notable systolic ejection murmur, echo pending. Patient scheduled for neurosurgical intervention this afternoon. 04/15: Tmax 99.3. The patient status post craniotomy with evacuation of subdural hematoma last evening, remained intubated, only on sedation with propofol infusion and requiring low-dose phenylephrine to maintain map greater than 65. Sedation was briefly lightened last evening postoperatively, and the patient was extremely agitated. IV fluids changed from D5W to normal saline with [address] brain performed. INR pending. 04/16: Tmax 99.8 Patient agitated during the night , swinging his legs out of the bed while on maximum doses of propofol infusion, fentanyl infusion low-dose added this a.m. Patient's diet advance will begin tube feeds this a.m. The patient was noted to have multifocal PVCs intermittent during the night potassium level 3.2 currently being repleted with K-Phos. 04/17: Tmax 101.6. The patient underwent emergent craniotomy for evacuation of acute recurrent left subdural hematoma last evening. The patient continues on 3 % normal saline, with serial sodium and osmole is being followed. Currently weaning slowly sedation for neuro assessment. Patient noted to have a significant elevation in WBC count of 22, blood cultures urine cultures and sputum cultures obtained. Chest x-ray now showing bilateral lung opacities edema versus possible infectious process being ruled out. Echo revealed patient has severe aortic stenosis with a roommate mean gradient of 44. The patient continues on phenylephrine for vasopressors support at this time. 04/18: Last evening, the patient went into A. fib RVR, heart rate low 100s, with self resolution. This a.m. the patient continues to have sinus rhythm/sinus tachycardia 90-105 with frequent multifocal PVCs. Electrolytes within normal limits. Given the significant medical history for severe aortic stenosis metoprolol 2.5 mg IV for rapid heart rate instituted. The patient continues on phenylephrine infusion for maintenance of a map greater than 65. Propofol is currently being weaned off. EEG revealed last night severe encephalopathy. No change in neurological status but patient still is under sedation patient withdraws to pain bilateral lower extremities and now has spontaneous eye opening intermittently. Leukocytosis notably is resolving. 04/19: Afebrile. Today afternoon the patient was noted to have a seizure, Ativan 1 mg IV push with resolution EEG ordered. Post seizure the patient was noted to have gross hematuria. Coag studies performed within normal limits, fibrinogen level slightly elevated . Creatinine kinase noted to be within normal limits. Hematuria thought to possibly be secondary to acquired von Willebrand's factor secondary to the shear stress from his severe aortic stenosis. DDAVP 2 mcgs IV 1 dose ordered this a.m.. Patient continues on 3% sodium chloride, phenylephrine has been discontinued. 04/20: Remains sedated, orally intubated on mechanical ventilation. Remains on 3 % saline. Off phenylephrine currently. Blood pressure labile. Tolerating tube feeds. 04/21: Remains sedated, orally intubated on mechanical ventilation. Stopping 3% saline. Tolerating tube feeds 04/22: Remains sedated, orally intubated on mechanical ventilation. On Levophed for pressor support. Spiking temperatures. Started on Zosyn yesterday. Continues to have hematuria. One unit PRBCs and fluid bolus ordered. 04/23: Appears to have developed ADRIANNE from osmotic diuresis associated with poorly controlled diabetes. Hyperglycemia exacerbated by dextrose containing solution. Will start constant carb feedings with glucerna, reduce levemir, add SSI coverage, and hydrate to correct fluid depletion. 04/24: Continued serum concentration associated with free water loss. No improvement in neurological function. Suspect osmotic diuresis from elevated glucose but will check urine specific gravity to rule out DI. 04/25: Osmolality improving. Continue DDAVP prn. 04/26: Alertness much improved after Na corrected. Required DDAVP X 2. Gas exchange acceptable and he is strong on CPAP trial. Right arm edematous, ultrasound with no thrombus. 04/27: Extubated > 24 hours ago and breathing comfortably. Protects airway. Electrolytes normalized. Transfer. 04/28: Tolerating extubation but respiratory rate increased, not labored. Osmolality normalized off of DDAVP. 04/29: more somnolent today, but still awake and following commands. sodium mp from 143 to 147 off DDAVP. will restart free water. ROS unobtainable due to patient's baseline mental status. 3-way contreras persists, less hematuria noted. Cr continues to improve. remains stable for transfer to floor. SUBJECTIVE: 04/30: Currently in room 1319 . Resting in sitting position bed. Currently resting in bed in no acute distress. Contreras catheter remains. 05/01: > 5 liters urine with rising BUN/Creatinine - appears to have slipped back into DI. 05/02: Daughter request Palliative Care consult to assist with decision making re continued aggressive care, trach. Objective Vital Signs Date Time Temp Pulse Resp B/P (MAP) Pulse Ox O2 Delivery O2 Flow Rate FiO2 05/02/17 08:59 98 35 05/02/17 06:00 97 05/02/17 04:00 98.6 18 147/68 (94) 04/30/17 20:27 Venturi Mask 04/29/17 08:15 1.00 Intake and Output 05/02/17 05/02/17 05/03/17 08:00 16:00 00:00 Intake Total 600 ml Output Total 600 ml Balance 0 ml Result Diagram: 05/01/17 0400 05/02/17 0440 Imaging Last Impressions Head CT 04/27/17 0000 Signed Impressions: Service Date/Time: Thursday, April 27, 2017 11:04 - CONCLUSION: 1. Interval removal of the patient's subdural drain. There is still a small amount of subdural hemorrhage remaining along the left frontal cortex. The remainder of the hemorrhage along the parietal is no longer identified. Findings were discussed in detail above. Luis Moreno MD Chest X-Ray 04/26/17 0400 Signed Impressions: Service Date/Time: Wednesday, April 26, 2017 04:12 - CONCLUSION: No significant interval change. Zeferino Hewitt MD Upper Extremity Ultrasound 04/25/17 0000 Signed Impressions: Service Date/Time: Tuesday, April 25, 2017 11:44 - CONCLUSION: No evidence of right upper extremity DVT. David Meade MD Cervical Spine CT 04/12/17 0000 Signed Impressions: Service Date/Time: Wednesday, April 12, 2017 17:36 - CONCLUSION: Degenerative spondylosis without any significant compromise to the thecal sac or the exiting nerve roots. Maria Guadalupe Alvarado MD Objective Remarks GENERAL: 71-year-old Elderly gentleman. SKIN: Warm and dry. No rash HEAD: Atraumatic. Normocephalic. EYES: Pupils equal and round about 3 mm bilaterally and reactive. No scleral icterus. No injection or drainage. ENT: No nasal bleeding or discharge. Mucous membranes pink and moist. NECK: Trachea midline. Orally intubated. CARDIOVASCULAR: Regular rate and rhythm. NL S1, S2. 2/6 systolic murmur right upper sternal border RESPIRATORY: No wheezing rales or rhonchi, good terese air movement. GASTROINTESTINAL: Abdomen soft, non-tender, nondistended, no guarding. : Contreras catheter in place MUSCULOSKELETAL: Extremities without clubbing, cyanosis. Right arm with resolving gross edema. NEUROLOGICAL: Moves 4 limbs weakly. Withdraws to pain in all 4 extremities. Opens eyes, tracks. follows some simple commands. Procedures 1/2-left frontoparietal craniotomy with evacuation of subacute on chronic SDH 04/17-@ 0000 emergent craniotomy with evacuation of acute recurrent left subdural hematoma A/P Assessment and Plan NEURO/PSYCH TBI -Subdural hematoma S/P Left frontoparietal craniotomy with evacuation of subacute on chronic SDH S/P Emergency revision/evacuation of acute recurrent left subdural hematoma Acute encephalopathy- resolving slowly Dementia disorder NOS Depression -Neurosurgery following. Dr. Odom - Neuro checks per protocol - Repeat CT head per neurosurgery-stable acute subdural hematoma within frontal regions, bilateral 5 mm subfalcine herniation to the right - Seizure prophylaxis with levetiracetam has been discontinued GBG discontinued 04/26 - 04/18 EEG-severe encephalopathy avoid long-acting sedating meds continue home gabapentin. 400 mg 3 times a day Trazodone 100 mg at night, sertraline 150 mg daily and donepezil 10 mg a old discontinued secondary QTc prolongation Acetaminophen 650 mg by NG every 6 hours when necessary fever RESP: COPD Acute hypoxic and hypercarbic respiratory failure - resolving. Nasal cannula to maintain saturations greater than equal to 90% Incentive spirometry while awake Albuterol/ipratropium aerosols every 6 hours with albuterol aerosols 2 hours. Dyspnea - Extubated 04/26. - aggressive pulmonary toilet with a cappella/CPAP incentive spirometry - PRVC vent mode 04/30 CV: Severe Hypotension- -resolved. Sinus tachycardia- resolved. Essential hypertension -04/14 EKG prolonged QT 475, continue close monitoring - 04/16 Echo-s Normal left ventricular size. Severe concentric left ventricular hypertrophy. The left ventricular systolic function is low normal with an estimated ejection fraction in the range of 50- 55%. Trace aortic valve regurgitation. Severe aortic valve stenosis. Moderate thickening of the aorticv alve leaflets. Aortic valve mean gradient is 44 mmHg. - Repeat phototypesetting equipment monitor QTc-holding benazepril and sertraline and donepezil Continue valsartan 80 mg by mouth daily for hypertension/home medication Started on metoprolol tartrate twice a day for hypertension GI: Acute protein calorie Malnutrition - severe - Continue tube feeds Glucerna 1.5 with goal 60cc/hr Famotidine 20 mg by 2 twice a day for bowel regimen Docusate sodium/senna 1 tablet twice a day for bowel regimen : Hematuria Maintain Contreras Dr. Woods has followed Neurology recommends replace Contreras catheter with a 18 Taiwanese coud and irrigate when necessary clots (previously with a 14 Taiwanese catheter) Continue tolterodine 4 mg by mouth daily for management of bladder spasms Holding trospium 20 mg twice a day ENDO: Diabetes mellitus - improved control. Central Diabetes Insipidus - Hold metformin 500 mg daily/home medication - Insulin sliding scale Novulog -high dose dose regimen, 25 units sliding scale past 24 hours Currently on insulin detemir 20 units twice a day - Unable to get clear urine due to bladder bleed. - Responding well to DDAVP, now stopped 04/28. Currently on free water 300mL po q4h - daily bmp to check sodium - Restart DDAVP ID: Septic shock- resolved. Pneumonia - resolved. Bacteremia- resolved. 04/19-blood cultures-staph intermedius 2 sets - contaminant 04/20 - Sputum cultures with e. coli, klebisella. s/p full course of Augie/ tazobactam 04/21 - 04/27. monitor off abx for fever, signs of infection. HEME: Last CBC 04/25. Leukocytosis. Recheck in a.m. 05/01 FEN: Hypernatremia See above treatment plan Continue free water 300 cc every 4 hours. Recheck BMP in a.m. Replace electrolytes as clinically indicated MSK PT evaluate and treat DVT GI prophylaxis - Teds SCDs - No pharmacological DVT prophylaxis due to subdural hematoma - Pepcid BID Level II follow-up Patient is stable from a critical care medicine standpoint. Assign care to hospitalist when transfer to floor. Family wants continued aggressive care. Roland Figueroa MD May 02, 2017 10:39
[2017-05-02] MEDS: hydrALAZINE HCL 20 MG/ML VIAL IV PUSH PRN (15:39)
[2017-05-02] MEDS: NYSTAT/DIPHENHY/LIDO MOUTHWASH (Adult) 120ML SWISH-SPIT PRN (18:25)
[2017-05-02] MEDS: SODIUM CHLOR 0.9% 1000 ML INJ 1,000 ML IV SCH (21:00)
[2017-05-03] VITALS (18 sets, daily range): BP systolic 115–151; BP diastolic 59–68; PULSE 87–116; RESP 16–21; TEMP 98.6–100.5; O2SAT 96–100
[2017-05-03] MEDS: INSULIN ASPART SUPPLEMENTAL SCALE SQ SCH ×4 (00:12→18:14)
[2017-05-03] MEDS: FREE WATER G-TUBE SCH ×6 (04:00→20:00)
[2017-05-03] MEDS: CHLORHEXIDINE GLUCONATE 2 % 1 PACK (2 CLOTHS) TOP SCH (04:00)
[2017-05-03] MEDS: RESP: ALBUTEROL 2.5 MG/IPRATROPIUM 0.5 MG NEB (SCH) NEB ×4 (04:34→20:11)
[2017-05-03] MEDS: SODIUM CHLOR 0.9% 1000 ML INJ 1,000 ML IV SCH ×3 (04:51→23:53)
[2017-05-03 06:17] LABS: BICARBONATE 23.4 MEQ/L (21.0-32.0); CREATININE 2.51 MG/DL (0.60-1.30)
[2017-05-03 06:25] LABS: AUTOMATED NEUTROPHIL # 13.4 TH/MM3 (1.8-7.7); BASOPHIL % 0.3 % (0.0-2.0); EOSINOPHIL % 0.2 % (0.0-4.0); HEMATOCRIT 33.6 % (39.0-51.0); HEMOGLOBIN 10.8 GM/DL (13.0-17.0); LYMPH % 3.6 % (9.0-44.0); LYMPHOCYTE # 0.5 TH/MM3 (1.0-4.8); MEAN CELL VOLUME 86.2 FL (80.0-100.0); MEAN CORPUSCULAR HEMOGLOBIN 27.7 PG (27.0-34.0); MEAN CORPUSCULAR HGB CONC 32.1 % (32.0-36.0); MONO % 6.4 % (0.0-8.0); NEUT % 89.5 % (16.0-70.0); PLATELET COUNT 460 TH/MM3 (150-450); RED BLOOD COUNT 3.89 MIL/MM3 (4.50-5.90); RED CELL DISTRIBUTION WIDTH 16.5 % (11.6-17.2); WHITE BLOOD COUNT 14.9 TH/MM3 (4.0-11.0)
--- NOTE | 2017-05-03 08:14 | HHI.CCPN ---
Subjective Remarks/Hospital Course 04/12: 71-year-old male presents for evaluation after he fell hitting his head. Per family report they were in the bathroom trying to change his undergarments when he slipped and fell hitting his head. He is not on anticoagulant. The patient is pleasantly confused and patient's daughter states this is his baseline. He has had no altered mental status since the fall. No vomiting. The patient reports a mild headache without radiation. No neck pain or back pain. He has been ambulatory without difficulty since the fall. The CT head performed in the emergency department shows bilateral subdural hematomas in addition to parafalcine subdural hematoma, left frontal and temporal lobe intraparenchymal hemorrhages and subfalcine herniation from qgce-to-clpaf. 04/13: Resting in bed comfortably at the time of my evaluation this morning. Confused, does not know the year. Knows he is in the hospital. Moves all 4 extremity's. Does not appear to be in any acute distress. 04/14: Afebrile. The patient continues to be confused but easily following commands notable systolic ejection murmur, echo pending. Patient scheduled for neurosurgical intervention this afternoon. 04/15: Tmax 99.3. The patient status post craniotomy with evacuation of subdural hematoma last evening, remained intubated, only on sedation with propofol infusion and requiring low-dose phenylephrine to maintain map greater than 65. Sedation was briefly lightened last evening postoperatively, and the patient was extremely agitated. IV fluids changed from D5W to normal saline with [address] brain performed. INR pending. 04/16: Tmax 99.8 Patient agitated during the night , swinging his legs out of the bed while on maximum doses of propofol infusion, fentanyl infusion low-dose added this a.m. Patient's diet advance will begin tube feeds this a.m. The patient was noted to have multifocal PVCs intermittent during the night potassium level 3.2 currently being repleted with K-Phos. 04/17: Tmax 101.6. The patient underwent emergent craniotomy for evacuation of acute recurrent left subdural hematoma last evening. The patient continues on 3 % normal saline, with serial sodium and osmole is being followed. Currently weaning slowly sedation for neuro assessment. Patient noted to have a significant elevation in WBC count of 22, blood cultures urine cultures and sputum cultures obtained. Chest x-ray now showing bilateral lung opacities edema versus possible infectious process being ruled out. Echo revealed patient has severe aortic stenosis with a roommate mean gradient of 44. The patient continues on phenylephrine for vasopressors support at this time. 04/18: Last evening, the patient went into A. fib RVR, heart rate low 100s, with self resolution. This a.m. the patient continues to have sinus rhythm/sinus tachycardia 90-105 with frequent multifocal PVCs. Electrolytes within normal limits. Given the significant medical history for severe aortic stenosis metoprolol 2.5 mg IV for rapid heart rate instituted. The patient continues on phenylephrine infusion for maintenance of a map greater than 65. Propofol is currently being weaned off. EEG revealed last night severe encephalopathy. No change in neurological status but patient still is under sedation patient withdraws to pain bilateral lower extremities and now has spontaneous eye opening intermittently. Leukocytosis notably is resolving. 04/19: Afebrile. Today afternoon the patient was noted to have a seizure, Ativan 1 mg IV push with resolution EEG ordered. Post seizure the patient was noted to have gross hematuria. Coag studies performed within normal limits, fibrinogen level slightly elevated . Creatinine kinase noted to be within normal limits. Hematuria thought to possibly be secondary to acquired von Willebrand's factor secondary to the shear stress from his severe aortic stenosis. DDAVP 2 mcgs IV 1 dose ordered this a.m.. Patient continues on 3% sodium chloride, phenylephrine has been discontinued. 04/20: Remains sedated, orally intubated on mechanical ventilation. Remains on 3 % saline. Off phenylephrine currently. Blood pressure labile. Tolerating tube feeds. 04/21: Remains sedated, orally intubated on mechanical ventilation. Stopping 3% saline. Tolerating tube feeds 04/22: Remains sedated, orally intubated on mechanical ventilation. On Levophed for pressor support. Spiking temperatures. Started on Zosyn yesterday. Continues to have hematuria. One unit PRBCs and fluid bolus ordered. 04/23: Appears to have developed ADRIANNE from osmotic diuresis associated with poorly controlled diabetes. Hyperglycemia exacerbated by dextrose containing solution. Will start constant carb feedings with glucerna, reduce levemir, add SSI coverage, and hydrate to correct fluid depletion. 04/24: Continued serum concentration associated with free water loss. No improvement in neurological function. Suspect osmotic diuresis from elevated glucose but will check urine specific gravity to rule out DI. 04/25: Osmolality improving. Continue DDAVP prn. 04/26: Alertness much improved after Na corrected. Required DDAVP X 2. Gas exchange acceptable and he is strong on CPAP trial. Right arm edematous, ultrasound with no thrombus. 04/27: Extubated > 24 hours ago and breathing comfortably. Protects airway. Electrolytes normalized. Transfer. 04/28: Tolerating extubation but respiratory rate increased, not labored. Osmolality normalized off of DDAVP. 04/29: more somnolent today, but still awake and following commands. sodium mp from 143 to 147 off DDAVP. will restart free water. ROS unobtainable due to patient's baseline mental status. 3-way contreras persists, less hematuria noted. Cr continues to improve. remains stable for transfer to floor. SUBJECTIVE: 04/30: Currently in room 1319 . Resting in sitting position bed. Currently resting in bed in no acute distress. Contreras catheter remains. 05/01: > 5 liters urine with rising BUN/Creatinine - appears to have slipped back into DI. 05/02: Daughter request Palliative Care consult to assist with decision making re continued aggressive care, trach. 05/03: Intermittent diabetes insipidus causing big problems for kidneys. Episodic diuresis unpredictable and between bouts he develops pulmonary edema. Remains very weak and unable to tolerate vent weaning trials. Objective Vital Signs Date Time Temp Pulse Resp B/P (MAP) Pulse Ox O2 Delivery O2 Flow Rate FiO2 05/03/17 07:53 100 35 05/03/17 06:00 92 05/03/17 04:00 99.1 18 115/59 (77) 04/30/17 20:27 Venturi Mask 04/29/17 08:15 1.00 Intake and Output 05/03/17 05/03/17 05/04/17 08:00 16:00 00:00 Intake Total 1848 ml Output Total 525.0 ml Balance 1323.0 ml Result Diagram: 05/03/17 0547 05/03/17 0547 Imaging Last Impressions Head CT 04/27/17 0000 Signed Impressions: Service Date/Time: Thursday, April 27, 2017 11:04 - CONCLUSION: 1. Interval removal of the patient's subdural drain. There is still a small amount of subdural hemorrhage remaining along the left frontal cortex. The remainder of the hemorrhage along the parietal is no longer identified. Findings were discussed in detail above. Luis Moreno MD Chest X-Ray 04/26/17 0400 Signed Impressions: Service Date/Time: Wednesday, April 26, 2017 04:12 - CONCLUSION: No significant interval change. Zeferino Hewitt MD Upper Extremity Ultrasound 04/25/17 0000 Signed Impressions: Service Date/Time: Tuesday, April 25, 2017 11:44 - CONCLUSION: No evidence of right upper extremity DVT. David Meade MD Cervical Spine CT 04/12/17 0000 Signed Impressions: Service Date/Time: Wednesday, April 12, 2017 17:36 - CONCLUSION: Degenerative spondylosis without any significant compromise to the thecal sac or the exiting nerve roots. Maria Guadalupe Alvarado MD Objective Remarks GENERAL: 71-year-old Elderly gentleman. SKIN: Warm and dry. No rash HEAD: Atraumatic. Normocephalic. EYES: Pupils equal and round about 3 mm bilaterally and reactive. No scleral icterus. No injection or drainage. ENT: No nasal bleeding or discharge. Mucous membranes pink and moist. NECK: Trachea midline. Orally intubated. CARDIOVASCULAR: Regular rate and rhythm. NL S1, S2. 2/6 systolic murmur right upper sternal border RESPIRATORY: No wheezing rales or rhonchi, good terese air movement. GASTROINTESTINAL: Abdomen soft, non-tender, nondistended, no guarding. BS active. : Contreras catheter in place MUSCULOSKELETAL: Extremities without clubbing, cyanosis. Right arm with resolving gross edema. NEUROLOGICAL: Moves 4 limbs weakly. Withdraws to pain in all 4 extremities. Otherwise largely unresponsive. Procedures 1/2-left frontoparietal craniotomy with evacuation of subacute on chronic SDH /5-@ 0000 emergent craniotomy with evacuation of acute recurrent left subdural hematoma A/P Assessment and Plan NEURO/PSYCH TBI -Subdural hematoma S/P Left frontoparietal craniotomy with evacuation of subacute on chronic SDH S/P Emergency revision/evacuation of acute recurrent left subdural hematoma Acute encephalopathy- resolving slowly Dementia disorder NOS Depression -Neurosurgery following. Dr. Odom - Neuro checks per protocol - Repeat CT head per neurosurgery-stable acute subdural hematoma within frontal regions, bilateral 5 mm subfalcine herniation to the right - Seizure prophylaxis with levetiracetam has been discontinued GBG discontinued 04/26 - 04/18 EEG-severe encephalopathy avoid long-acting sedating meds continue home gabapentin. 400 mg 3 times a day Trazodone 100 mg at night, sertraline 150 mg daily and donepezil 10 mg a old discontinued secondary QTc prolongation Acetaminophen 650 mg by NG every 6 hours when necessary fever Continuing episodic DI RESP: COPD Acute hypoxic and hypercarbic respiratory failure - resolving. Nasal cannula to maintain saturations greater than equal to 90% Incentive spirometry while awake Albuterol/ipratropium aerosols every 6 hours with albuterol aerosols 2 hours. Dyspnea - Extubated 04/26. - aggressive pulmonary toilet with a cappella/CPAP incentive spirometry - PRVC vent mode 04/30 CV: Severe Hypotension- -resolved. Sinus tachycardia- resolved. Essential hypertension -04/14 EKG prolonged QT 475, continue close monitoring - 04/16 Echo-s Normal left ventricular size. Severe concentric left ventricular hypertrophy. The left ventricular systolic function is low normal with an estimated ejection fraction in the range of 50- 55%. Trace aortic valve regurgitation. Severe aortic valve stenosis. Moderate thickening of the aorticv alve leaflets. Aortic valve mean gradient is 44 mmHg. - Repeat cyber analyst QTc-holding benazepril and sertraline and donepezil Continue valsartan 80 mg by mouth daily for hypertension/home medication Started on metoprolol tartrate twice a day for hypertension GI: Acute protein calorie Malnutrition - severe - Continue tube feeds Glucerna 1.5 with goal 60cc/hr Famotidine 20 mg by 2 twice a day for bowel regimen Docusate sodium/senna 1 tablet twice a day for bowel regimen : Hematuria Maintain Contreras Dr. Woods has followed Neurology recommends replace Contreras catheter with a 18 Israeli coud and irrigate when necessary clots (previously with a 14 Israeli catheter) Continue tolterodine 4 mg by mouth daily for management of bladder spasms Holding trospium 20 mg twice a day ENDO: Diabetes mellitus - improved control. Central Diabetes Insipidus - Hold metformin 500 mg daily/home medication - Insulin sliding scale Novulog -high dose dose regimen, 25 units sliding scale past 24 hours Currently on insulin detemir 20 units twice a day - Unable to get clear urine due to bladder bleed. - Responding well to DDAVP, now stopped 04/28. Currently on free water 300mL po q4h - daily bmp to check sodium - Restart DDAVP ID: Septic shock- resolved. Pneumonia - resolved. Bacteremia- resolved. 04/19-blood cultures-staph intermedius 04/14 sets - contaminant 04/20 - Sputum cultures with e. coli, klebisella. s/p full course of Augie/ tazobactam 04/21 - 04/27. monitor off abx for fever, signs of infection. HEME: Last CBC 04/25. Leukocytosis. Recheck in a.m. 05/01 FEN: Hypernatremia See above treatment plan Continue free water 300 cc every 4 hours. Recheck BMP in a.m. Replace electrolytes as clinically indicated MSK PT evaluate and treat DVT GI prophylaxis - Teds SCDs - No pharmacological DVT prophylaxis due to subdural hematoma - Pepcid BID Overall impression: He has deteriorated considerably over the past 7 days, requiring reintubation and is now ventilator dependent. He will not recover from this illness more than enough to perhaps make it to an LTAC. Roland Figueroa MD May 03, 2017 08:14
[2017-05-03] MEDS: VALSARTAN 80 MG TAB PO SCH (09:00)
[2017-05-03] MEDS: TOLTERODINE TARTRATE 4 MG CAP LA PO SCH (09:00)
[2017-05-03] MEDS: NYSTAT/DIPHENHY/LIDO MOUTHWASH (Adult) 120ML SWISH-SPIT PRN (09:09)
[2017-05-03] MEDS: DESMOPRESSIN ACETATE 4 MCG/ML VIAL IV PUSH SCH ×2 (09:10→21:43)
[2017-05-03] MEDS: ARTIFICIAL TEARS OPTH OINT 3.5 APPLIC/3.5 GM TUBO EACH EYE SCH ×2 (09:11→21:00)
[2017-05-03] MEDS: INSULIN DETEMIR 100 UNITS/ML VIAL SQ SCH ×2 (09:11→21:44)
[2017-05-03] MEDS: GABAPENTIN 400 MG CAP PO SCH ×3 (09:11→18:15)
[2017-05-03] MEDS: SODIUM CHLORIDE 0.9% FLUSH 10 ML FLUSH IV FLUSH SCH ×2 (09:11→21:00)
[2017-05-03] MEDS: DOCUSATE SODIUM 50 MG/SENNA 8.6 MG TAB PO SCH ×2 (09:12→21:00)
[2017-05-03] MEDS: PRAVASTATIN SOD 40 MG TAB PO SCH (09:12)
[2017-05-03] MEDS: METOPROLOL TARTRATE 25 MG TAB PO SCH ×2 (09:12→21:00)
[2017-05-03] MEDS: FAMOTIDINE 20 MG TAB NG SCH ×2 (09:12→21:00)
--- NOTE | 2017-05-03 11:04 | HHI.NSPN ---
(Lacho Lacey Betsey JOSEPH) History Chief Complaint: Unable to obtain due to patient's clinical condition. (Lacho Lacey TOOL FILER) Interval History 04/12: Mr. Hope is a 71-year-old male who presented to the emergency room today after he fell at home in the presence of his daughter. She states that he lost his balance while trying to put some close on, and fell and struck his head. There was no loss of consciousness. No seizure activity or nausea or emesis reported. The patient has baseline dementia and confusion, but no definite overall change in his mentation after the fall earlier today, according to his daughter, who he lives with. He presently has no complaint of headache. He does have some chronic neck and back pain. 04/13: The patient was examined in the presence of the family today and a more detailed history has been obtained. They indicate chronic progressive dementia to the point that the patient has had to move in with his daughter earlier this year. He cannot care for himself. He is usually quite confused, conversing with only a few words or short sentences and unable to stay on task with conversations. He is usually very active, fidgeting constantly. They state that his mental status today is not significantly changed from his overall baseline. He did go to the emergency room a couple of weeks ago at [facility] due to some pressure sensation or frontal headaches and was diagnosed with sinus congestion. A CT scan of the head was not obtained. He has had no definite falls over the past few weeks up until yesterday. 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 Post-operatively he returned to [facility] for further care and monitoring. 04/15: This morning the patient is obtunded and has no sedation infusing. He does withdraw to noxious stimulation. He does not open his eyes but does have facial grimacing and turns his head to noxious stimulation. ADDENDUM at 1854: Patient was sedated with propofol 50 mcg/kg/min when seen, the pump was not visible at the time. BET. 04/16: When seen the patient is obtunded but does have the propofol drip infusing. Nursing reports that he moves all extremities but does become agitated when the propofol is weaned down. He moves all extremities to noxious stimulation when seen but did not follow any commands. 04/17: The patient remains obtunded and continues to be sedated with a propofol drip. He is now on phenylephrine for blood pressure support. He does not respond to commands and only withdraws the lower extremities to noxious stimulation. He does have some facial grimacing but no eye opening to noxious stimulation. He did go emergently late last night/early this morning for a revision of the left frontoparietal craniotomy for evacuation of a recurrent left hemisphere subdural haematoma. 04/18/17: intubated, propofol just turned off, intermittent movement to ext per nursing, not opening eyes. 04/19/17: nursing reports seizures yesterday, repeat CT head stable residual SDH and 5 mm midline shift. Awaiting EEG. 04/20: Patient with right eye partially opened when seen but Nursing just stimulated patient. He remains intubated and mechanically ventilated. He withdraws to noxious stimuli to the lower extremities but not the upper. He does have facial grimacing to noxious stimulation. Nursing reports that overnight KWAME #1 had 170 mL of yellowish drainage. She also says the patient has been off sedation approximately 36 hours. 04/21: The patient was examined in the presence of the family today and a more detailed history has been obtained. They indicate chronic progressive dementia to the point that the patient has had to move in with his daughter earlier this year. He cannot care for himself. He is usually quite confused, conversing with only a few words or short sentences and unable to stay on task with conversations. He is usually very active, fidgeting constantly. They state that his mental status today is not significantly changed from his overall baseline. He did go to the emergency room a couple of weeks ago at [facility] due to some pressure sensation or frontal headaches and was diagnosed with sinus congestion. A CT scan of the head was not obtained. He has had no definite falls over the past few weeks up until yesterday. 04/23: When seen the patient did have his eyes partially opened and he opened them wider to voice. He was moving the left upper and both lower extremities to varying degrees spontaneously. It was questionable if he moved the left lower to command but did move all extremities to noxious stimulation. 04/24: It is difficult to say if the patient was asleep when seen or not. It did appear he had his eyes partially open since Nursing was in the room. He did open them briefly to my voice. He spontaneously moved the left hand some and gripped this practitioner's hand. He moved the lower extremities to command. There was no noted movement of the right upper to noxious stimulation but he did have facial grimacing. 04/25: Patient is sedated but will respond to painful stimulation. 04/26: Patient now extubated and much more alert and responsive. He is not indicating any significant pain complaints. 04/27: This morning the patient's eyes are open. He did squeeze to command with the left hand and had withdrawal of the other extremities to noxious stimulation. He has been extubated but is nonverbal. He has mild respiratory effort on a nasal cannula. 04/28: When seen this morning the patient is lethargic. He did not open his eyes to voice or follow any commands. He did have slight withdrawal of the left upper and both lower extremities to noxious stimulation. He did have facial grimacing to noxious stimulation as well. 04/29: The patient is awake this morning. He is on a nasal cannula. He squeezes with the left hand when a hand is placed in it. He moves both feet to noxious stimulation. He had no movement of the right upper extremity. 04/30: This morning the patient is sitting up in the cardiac chair with his eyes closed. There was no evident eye opening to voice. He was noted to move the left lower extremity spontaneously. He did give a slight squeeze with the left hand to command and appears to have tried to give a thumbs up when asked to. He did move the right lower extremity to noxious stimulation and there was muscle contraction noted to the right forearm to noxious stimulation. 05/01: When seen this morning the patient is intubated and on CPAP. He does not respond to any commands or open his eyes. He does spontaneously move the left upper extremity and both lower to noxious stimulation. There was no response with the right upper. Nursing reports that during the night his systolic blood pressure dropped into the 70s, his respirations were in the 30s and he was tachycardiac in the 130s. He was therefore emergently intubated. He was given three litres of intravenous fluids and his systolic blood pressure improved. 05/02: The patient is seen moving both lower extremities spontaneously. He remains intubated and mechanically ventilated. He is not on any sedation. His daughter is present and states that he did open his eyes briefly to her voice and that he was squeezing her hand. He did squeeze this practitioner's hand to command and moved both lower extremities to noxious stimulation. There was no movement of the right upper. 05/03: The patient is lethargic when seen. He does not have any sedation infusing. He remains intubated but is on CPAP. He does spontaneously move the lower extremities but is not following any commands. He did move his extremities to noxious stimulation as well as have facial grimacing. (Lacho Lacey) System Review Comments Unable to obtain due to patient's clinical condition. (Lacho Lacey) Exam Results 05/01/17 05/01/17 05/02/17 05/02/17 05/03/17 05/03/17 06:00 18:00 06:00 18:00 06:00 18:00 Intake Total 700 ml 1300 ml 900 ml 900 ml 1848 ml Output Total 300 ml 1475 ml 1250 ml 2350 ml 1065.0 ml Balance 400 ml -175 ml -350 ml -1450 ml 783.0 ml IV Total 0 ml 1000 ml 1000 ml Tube Feeding 500 ml 248 ml Other 200 ml 300 ml 900 ml 900 ml 600 ml Output Urine Total 300 ml 1475 ml 1250 ml 2350 ml 1065 ml Tube Feeding Residual Discard 0 ml # Bowel Movements 0 0 Vital Signs Date Time Temp Pulse Resp B/P (MAP) Pulse Ox O2 Delivery O2 Flow Rate FiO2 05/03/17 08:17 35 05/03/17 08:17 99 35 05/03/17 07:53 100 35 05/03/17 06:00 92 05/03/17 04:35 98 35 05/03/17 04:00 92 05/03/17 04:00 35 05/03/17 04:00 99.1 104 18 115/59 (77) 97 05/03/17 02:00 96 05/03/17 00:00 104 05/03/17 00:00 35 1/21/18 00:00 98.7 104 17 115/59 (77) 98 20/18 23:50 99 35 20/18 22:00 114 20/18 20:22 94 35 20/18 20:00 35 20/18 20:00 98.5 112 20 87/52 (64) 95 20/18 20:00 114 2018 18:00 130 05/02/17 16:13 97 35 05/02/17 16:00 98.9 92 23 143/63 (89) 99 18 16:00 92 05/02/17 16:00 35 05/02/17 15:25 35 05/02/17 14:00 109 05/02/17 12:25 99 35 05/02/17 12:00 87 18 12:00 35 05/02/17 12:00 98.2 87 19 148/70 (96) 98 05/02/17 10:00 97 05/02/17 08:59 98 35 05/02/17 08:00 35 05/02/17 08:00 98.2 105 18 149/72 (97) 99 05/02/17 08:00 105 05/02/17 06:00 97 05/02/17 04:00 35 18 04:00 96 05/02/17 04:00 98.6 96 18 147/68 (94) 99 05/02/17 03:30 99 35 18 02:00 88 18 00:00 35 05/02/17 00:00 98.2 90 20 161/69 (99) 100 18 00:00 90 18 22:28 100 35 05/01/18 22:00 86 05/01/18 20:02 100 35 05/01/18 20:00 97.8 92 16 100/58 (72) 100 05/01/18 20:00 35 05/01/18 20:00 92 05/01/18 18:00 97 05/01/18 16:00 35 18 16:00 98 18 16:00 98.8 98 18 89/54 (66) 96 18 15:29 99 35 18 14:00 83 05/01/17 12:06 100 100 05/01/17 12:00 105 05/01/17 12:00 98.7 105 20 135/68 (90) 98 05/01/17 12:00 35 05/01/17 11:09 95 35 05/01/17 10:00 111 05/01/17 08:00 98.7 103 15 94/53 (67) 99 05/01/17 08:00 103 05/01/17 08:00 95 35 05/01/17 08:00 35 05/01/17 08:00 35 05/01/17 06:25 35 05/01/17 05:06 97 50 05/01/17 04:40 50 05/01/17 04:01 100.0 134 28 72/56 (61) 83 05/01/17 03:45 96 50 05/01/17 00:35 98.5 123 28 125/75 (92) 96 04/30/17 20:34 98.1 122 24 129/74 (92) 91 04/30/17 20:27 97 Venturi Mask 35 04/30/17 20:00 128 04/30/17 16:04 98.8 119 25 147/99 (115) 96 04/30/17 12:21 98.3 112 23 140/67 (91) 93 (Lacho Lacey) Physical Examination GENERAL: Lethargic, no sedation infusing, no apparent distress. Intubated and on CPAP. HEENT: Left craniotomy surgical incision well approximated, some crusting, no evident drainage, erythema or streaking. PERRLA 3mm. Orally intubated. NGT left nare. Erosion of the philtrum. MUSCULOSKELETAL: No clubbing or deformity evident. Moving BLE spontaneously. NEUROLOGICAL: Lethargic, w/o any sedation infusing. No eye opening to voice or noxious stimulation. Nonverbal, intubated. Facial grimacing to noxious stimulation. Moving BLE spontaneously. Moves LUE & BLE to local noxious stimulation. No response with the RUE. (Lacho Lacey) Lab, Micro, Other Results Recent Impressions Head CT 05/01/17 0971 Signed Impressions: Service Date/Time: Monday, May 01, 2017 11:52 - CONCLUSION: 1. Mild interval improvement in left subdural hematoma. 2. 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 3. No new hemorrhage or mass effect. Simon Haley MD Chest X-Ray 05/01/17 0000 Signed Impressions: Service Date/Time: Monday, May 01, 2017 04:41 - CONCLUSION: 1. Stable ETT and NGT. 2. Stable minimal bibasilar airspace disease, likely atelectasis. 3. No significant interval change. Thierry Barros MD Laboratory Tests Test 05/01/17 04:00 05/01/17 06:14 05/02/17 04:40 05/03/17 05:47 White Blood Count 24.5 TH/MM3 14.9 TH/MM3 Red Blood Count 4.26 MIL/MM3 3.89 MIL/MM3 Hemoglobin 12.0 GM/DL 10.8 GM/DL Hematocrit 36.4 % 33.6 % Mean Corpuscular Volume 85.4 FL 86.2 FL Mean Corpuscular Hemoglobin 28.1 PG 27.7 PG Mean Corpuscular Hemoglobin Concent 32.9 % 32.1 % Red Cell Distribution Width 16.2 % 16.5 % Platelet Count 710 TH/MM3 460 TH/MM3 Mean Platelet Volume 8.1 FL 8.0 FL Neutrophils (%) (Auto) 92.9 % 89.5 % Lymphocytes (%) (Auto) 1.1 % 3.6 % Monocytes (%) (Auto) 4.7 % 6.4 % Eosinophils (%) (Auto) 0.1 % 0.2 % Basophils (%) (Auto) 1.2 % 0.3 % Neutrophils # (Auto) 22.8 TH/MM3 13.4 TH/MM3 Lymphocytes # (Auto) 0.3 TH/MM3 0.5 TH/MM3 Monocytes # (Auto) 1.1 TH/MM3 1.0 TH/MM3 Eosinophils # (Auto) 0.0 TH/MM3 0.0 TH/MM3 Basophils # (Auto) 0.3 TH/MM3 0.0 TH/MM3 CBC Comment DIFF FINAL DIFF FINAL Differential Comment Blood Urea Nitrogen 39 MG/DL 36 MG/DL 52 MG/DL Creatinine 1.66 MG/DL 1.03 MG/DL 2.51 MG/DL Random Glucose 244 MG/DL 148 MG/DL 204 MG/DL Total Protein 6.8 GM/DL Albumin 2.1 GM/DL Calcium Level 8.8 MG/DL 8.8 MG/DL 8.0 MG/DL Phosphorus Level 5.2 MG/DL Magnesium Level 2.4 MG/DL Alkaline Phosphatase 75 U/L Aspartate Amino Transf (AST/SGOT) 30 U/L Alanine Aminotransferase (ALT/SGPT) 28 U/L Total Bilirubin 0.4 MG/DL Direct Bilirubin 0.1 MG/DL Sodium Level 145 MEQ/L 149 MEQ/L 145 MEQ/L Potassium Level 5.2 MEQ/L 3.7 MEQ/L 4.3 MEQ/L Chloride Level 109 MEQ/L 111 MEQ/L 112 MEQ/L Carbon Dioxide Level 28.7 MEQ/L 31.1 MEQ/L 23.4 MEQ/L Anion Gap 7 MEQ/L 7 MEQ/L 10 MEQ/L Estimat Glomerular Filtration Rate 41 ML/MIN 71 ML/MIN 25 ML/MIN Indirect Bilirubin 0.3 MG/DL Blood Gas Puncture Site LT BRACHIAL Blood Gas Patient Temperature 98.6 Blood Gas HCO3 27 mmol/L Blood Gas Base Excess 2.2 mmol/L Blood Gas Oxygen Saturation 97 % Arterial Blood pH 7.40 Arterial Blood Partial Pressure CO2 44 mmHg Arterial Blood Partial Pressure O2 166 mmHg Arterial Blood Oxygen Content 14.7 Vol % Arterial Blood Carboxyhemoglobin 1.0 % Arterial Blood Methemoglobin 1.0 % Blood Gas Hemoglobin 10.5 G/DL Oxygen Delivery Device VENTILATOR Blood Gas Ventilator Setting SEE COMMENT Blood Gas Inspired Oxygen 50 % (Lacho Lacey) Medical Decision Making Impression and Plan Impression: 1. 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 Dementia 4. Cardiac murmur Patient lethargic, moving BLE spontaneously and moving LUE & BLE to noxious stimulation, no movement of the RLE to noxious stimulation. Reviewed labs for today. Since : Interval improvement in leukocytosis ; Interval drop in haemoglobin; Interval improvement in thrombocytosis. Sodium 145. Interval worsening in renal function. CT brain demonstrated improvement in the left frontal subdural haematoma and chronic hygromas, no haemorrhage or mass effect. EEG consistent w/severe encephalopathy. KWAME #1 was removed . KWAME #2 removed . POD #19 () s/p: Left frontoparietal craniotomy for evacuation of subacute on chronic subdural hematoma Postoperative Diagnosis: (1) Subdural hematoma, chronic (2) Acute subdural hematoma 1. Left hemisphere subacute on chronic subdural hematoma 2. Acute right frontal subdural hematoma POD #16 () s/p: Revision left frontoparietal craniotomy evacuation of recurrent left hemisphere subdural hematoma Postoperative Diagnosis: (1) Acute subdural hematoma Recurrent left hemisphere subdural hematoma Plan: Primary management per [facility] Worker. Neuro checks. Repeat CT brain for any decline in neuro status. Mechanical DVT prophylaxis. Hold pharmacologic DVT prophylaxis. Stress ulcer prophylaxis. (Lacho Lacey) Attending Statement The exam, history, and the medical decision-making described in the above note were completed with the assistance of the mid-level provider. I reviewed and agree with the findings presented. I attest that I had a [id number] encounter with the patient on the same day, and personally performed and documented my assessment and findings in the medical record. On my examination 05/03/2017, patient remains intubated, on CPAP trials No eye opening spontaneous origin voice or sternal rub. He does not follow any commands Mild withdrawal left upper versus lower extremity with occasional right lower extremity movements. Generally no significant improvement in his neurologic exam over the past week. Many palliative care assistance for family decision making (Sylvester Odom MD) Lacho Lacey May 03, 2017 11:04 Sylvester Odom MD May 04, 2017 21:18
[2017-05-03] MEDS: cefTRIAXone INJ 1,000 MG in SODIUM CHLORIDE 0.9% INJ 100 ML IV SCH ×2 (18:00→18:36)
[2017-05-04] VITALS (15 sets, daily range): BP systolic 130–145; BP diastolic 68–81; PULSE 76–106; RESP 16–24; TEMP 97.8–99.7; O2SAT 96–100
[2017-05-04] MEDS: INSULIN ASPART SUPPLEMENTAL SCALE SQ SCH ×5 (01:14→23:59)
[2017-05-04] MEDS: FREE WATER G-TUBE SCH ×7 (03:21→23:59)
[2017-05-04] MEDS: CHLORHEXIDINE GLUCONATE 2 % 1 PACK (2 CLOTHS) TOP SCH ×2 (03:21→19:53)
[2017-05-04] MEDS: RESP: ALBUTEROL 2.5 MG/IPRATROPIUM 0.5 MG NEB (SCH) NEB ×2 (04:01→07:39)
[2017-05-04 05:09] LABS: AUTOMATED NEUTROPHIL # 13.1 TH/MM3 (1.8-7.7); BASOPHIL % 0.3 % (0.0-2.0); EOSINOPHIL # 0.1 TH/MM3 (0-0.4); EOSINOPHIL % 0.5 % (0.0-4.0); HEMATOCRIT 29.9 % (39.0-51.0); HEMOGLOBIN 9.9 GM/DL (13.0-17.0); LYMPH % 2.5 % (9.0-44.0); LYMPHOCYTE # 0.4 TH/MM3 (1.0-4.8); MEAN CELL VOLUME 85.1 FL (80.0-100.0); MEAN CORPUSCULAR HEMOGLOBIN 28.2 PG (27.0-34.0); MEAN CORPUSCULAR HGB CONC 33.2 % (32.0-36.0); MEAN PLATELET VOLUME 7.8 FL (7.0-11.0); MONO % 5.5 % (0.0-8.0); MONOCYTE # 0.8 TH/MM3 (0-0.9); NEUT % 91.2 % (16.0-70.0); PLATELET COUNT 426 TH/MM3 (150-450); RED BLOOD COUNT 3.51 MIL/MM3 (4.50-5.90); RED CELL DISTRIBUTION WIDTH 16.3 % (11.6-17.2); WHITE BLOOD COUNT 14.3 TH/MM3 (4.0-11.0)
[2017-05-04] MEDS: cefTRIAXone INJ 1,000 MG in SODIUM CHLORIDE 0.9% INJ 100 ML IV SCH ×2 (05:16→18:47)
[2017-05-04 06:05] LABS: BICARBONATE 23.7 MEQ/L (21.0-32.0); CALCIUM 8.1 MG/DL (8.5-10.1); CREATININE 4.28 MG/DL (0.60-1.30); FREE T4 1.08 NG/DL (0.76-1.46)
[2017-05-04] MEDS: ARTIFICIAL TEARS OPTH OINT 3.5 APPLIC/3.5 GM TUBO EACH EYE SCH ×2 (09:00→20:54)
[2017-05-04] MEDS: INSULIN DETEMIR 100 UNITS/ML VIAL SQ SCH ×2 (09:00→20:55)
[2017-05-04] MEDS: DOCUSATE SODIUM 50 MG/SENNA 8.6 MG TAB PO SCH ×2 (09:38→20:55)
[2017-05-04] MEDS: SODIUM CHLORIDE 0.9% FLUSH 10 ML FLUSH IV FLUSH SCH ×2 (09:38→20:55)
[2017-05-04] MEDS: FAMOTIDINE 20 MG TAB NG SCH ×2 (09:38→20:55)
[2017-05-04] MEDS: VALSARTAN 80 MG TAB PO SCH (09:38)
[2017-05-04] MEDS: GABAPENTIN 400 MG CAP PO SCH (09:38)
[2017-05-04] MEDS: METOPROLOL TARTRATE 25 MG TAB PO SCH ×2 (09:39→20:55)
[2017-05-04] MEDS: PRAVASTATIN SOD 40 MG TAB PO SCH (09:39)
[2017-05-04] MEDS: TOLTERODINE TARTRATE 4 MG CAP LA PO SCH (09:39)
[2017-05-04] MEDS: DESMOPRESSIN ACETATE 4 MCG/ML VIAL IV PUSH SCH ×2 (09:39→20:54)
[2017-05-04] MEDS: SODIUM CHLOR 0.9% 1000 ML INJ 1,000 ML IV SCH ×2 (09:40→18:51)
--- NOTE | 2017-05-04 10:36 | HHI.NSPN ---
(Lacho Lacey Betsey JOSEPH) History Chief Complaint: Unable to obtain due to patient's clinical condition. (Lacho Lacey RADIO EQUIPMENT REPAIRER) Interval History 04/12: Mr. Hope is a 71-year-old male who presented to the emergency room today after he fell at home in the presence of his daughter. She states that he lost his balance while trying to put some close on, and fell and struck his head. There was no loss of consciousness. No seizure activity or nausea or emesis reported. The patient has baseline dementia and confusion, but no definite overall change in his mentation after the fall earlier today, according to his daughter, who he lives with. He presently has no complaint of headache. He does have some chronic neck and back pain. 04/13: The patient was examined in the presence of the family today and a more detailed history has been obtained. They indicate chronic progressive dementia to the point that the patient has had to move in with his daughter earlier this year. He cannot care for himself. He is usually quite confused, conversing with only a few words or short sentences and unable to stay on task with conversations. He is usually very active, fidgeting constantly. They state that his mental status today is not significantly changed from his overall baseline. He did go to the emergency room a couple of weeks ago at [facility] due to some pressure sensation or frontal headaches and was diagnosed with sinus congestion. A CT scan of the head was not obtained. He has had no definite falls over the past few weeks up until yesterday. 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 Post-operatively he returned to [facility] for further care and monitoring. 04/15: This morning the patient is obtunded and has no sedation infusing. He does withdraw to noxious stimulation. He does not open his eyes but does have facial grimacing and turns his head to noxious stimulation. ADDENDUM at 1854: Patient was sedated with propofol 50 mcg/kg/min when seen, the pump was not visible at the time. BET. 04/16: When seen the patient is obtunded but does have the propofol drip infusing. Nursing reports that he moves all extremities but does become agitated when the propofol is weaned down. He moves all extremities to noxious stimulation when seen but did not follow any commands. 04/17: The patient remains obtunded and continues to be sedated with a propofol drip. He is now on phenylephrine for blood pressure support. He does not respond to commands and only withdraws the lower extremities to noxious stimulation. He does have some facial grimacing but no eye opening to noxious stimulation. He did go emergently late last night/early this morning for a revision of the left frontoparietal craniotomy for evacuation of a recurrent left hemisphere subdural haematoma. 04/18/17: intubated, propofol just turned off, intermittent movement to ext per nursing, not opening eyes. 04/19/17: nursing reports seizures yesterday, repeat CT head stable residual SDH and 5 mm midline shift. Awaiting EEG. 04/20: Patient with right eye partially opened when seen but Nursing just stimulated patient. He remains intubated and mechanically ventilated. He withdraws to noxious stimuli to the lower extremities but not the upper. He does have facial grimacing to noxious stimulation. Nursing reports that overnight KWAME #1 had 170 mL of yellowish drainage. She also says the patient has been off sedation approximately 36 hours. 04/21: The patient was examined in the presence of the family today and a more detailed history has been obtained. They indicate chronic progressive dementia to the point that the patient has had to move in with his daughter earlier this year. He cannot care for himself. He is usually quite confused, conversing with only a few words or short sentences and unable to stay on task with conversations. He is usually very active, fidgeting constantly. They state that his mental status today is not significantly changed from his overall baseline. He did go to the emergency room a couple of weeks ago at [facility] due to some pressure sensation or frontal headaches and was diagnosed with sinus congestion. A CT scan of the head was not obtained. He has had no definite falls over the past few weeks up until yesterday. 04/23: When seen the patient did have his eyes partially opened and he opened them wider to voice. He was moving the left upper and both lower extremities to varying degrees spontaneously. It was questionable if he moved the left lower to command but did move all extremities to noxious stimulation. 04/24: It is difficult to say if the patient was asleep when seen or not. It did appear he had his eyes partially open since Nursing was in the room. He did open them briefly to my voice. He spontaneously moved the left hand some and gripped this practitioner's hand. He moved the lower extremities to command. There was no noted movement of the right upper to noxious stimulation but he did have facial grimacing. 04/25: Patient is sedated but will respond to painful stimulation. 04/26: Patient now extubated and much more alert and responsive. He is not indicating any significant pain complaints. 04/27: This morning the patient's eyes are open. He did squeeze to command with the left hand and had withdrawal of the other extremities to noxious stimulation. He has been extubated but is nonverbal. He has mild respiratory effort on a nasal cannula. 04/28: When seen this morning the patient is lethargic. He did not open his eyes to voice or follow any commands. He did have slight withdrawal of the left upper and both lower extremities to noxious stimulation. He did have facial grimacing to noxious stimulation as well. 04/29: The patient is awake this morning. He is on a nasal cannula. He squeezes with the left hand when a hand is placed in it. He moves both feet to noxious stimulation. He had no movement of the right upper extremity. 04/30: This morning the patient is sitting up in the cardiac chair with his eyes closed. There was no evident eye opening to voice. He was noted to move the left lower extremity spontaneously. He did give a slight squeeze with the left hand to command and appears to have tried to give a thumbs up when asked to. He did move the right lower extremity to noxious stimulation and there was muscle contraction noted to the right forearm to noxious stimulation. 05/01: When seen this morning the patient is intubated and on CPAP. He does not respond to any commands or open his eyes. He does spontaneously move the left upper extremity and both lower to noxious stimulation. There was no response with the right upper. Nursing reports that during the night his systolic blood pressure dropped into the 70s, his respirations were in the 30s and he was tachycardiac in the 130s. He was therefore emergently intubated. He was given three litres of intravenous fluids and his systolic blood pressure improved. 05/02: The patient is seen moving both lower extremities spontaneously. He remains intubated and mechanically ventilated. He is not on any sedation. His daughter is present and states that he did open his eyes briefly to her voice and that he was squeezing her hand. He did squeeze this practitioner's hand to command and moved both lower extremities to noxious stimulation. There was no movement of the right upper. 05/03: The patient is lethargic when seen. He does not have any sedation infusing. He remains intubated but is on CPAP. He does spontaneously move the lower extremities but is not following any commands. He did move his extremities to noxious stimulation as well as have facial grimacing. 05/04: This morning the patient is lethargic when seen. He continues to be intubated and is now mechanically ventilated. He does squeeze twice with the left hand and moves all extremities to noxious stimulation. He is not on any sedation. (Lacho Lacey) System Review Comments Unable to obtain due to patient's clinical condition. (Lacho Lacey) Exam Results 05/02/17 05/02/17 05/03/17 05/03/17 05/04/17 05/04/17 05:59 17:59 05:59 17:59 05:59 17:59 Intake Total 600 ml 600 ml 1900 ml 848 ml 3144 ml 897 ml Output Total 2125 ml 600 ml 3115.0 ml 320.0 ml 3775.0 ml 375 ml Balance -1525 ml 0 ml -1215.0 ml 528.0 ml -631.0 ml 522 ml IV Total 1000 ml 1100 ml Tube Feeding 248 ml 544 ml 597 ml Other 600 ml 600 ml 900 ml 600 ml 1500 ml 300 ml Output Urine Total 2125 ml 600 ml 3115 ml 300 ml 3775 ml 375 ml Tube Feeding Residual Discard 0 ml 20.0 ml 0 ml # Bowel Movements 0 0 1 Vital Signs Date Time Temp Pulse Resp B/P (MAP) Pulse Ox O2 Delivery O2 Flow Rate FiO2 05/04/17 09:45 35 05/04/17 08:16 35 05/04/17 08:16 35 05/04/17 08:00 35 05/04/17 08:00 99.4 100 16 141/74 (96) 96 05/04/17 07:40 98 35 05/04/17 06:00 76 05/04/17 04:01 97 35 05/04/17 04:00 35 05/04/17 04:00 99.1 102 18 142/76 (98) 98 05/04/17 04:00 102 05/04/17 02:00 100 05/04/17 00:30 98 35 05/04/17 00:00 35 05/04/17 00:00 99.7 102 17 130/70 (90) 98 05/04/17 00:00 102 05/03/17 22:00 100 05/03/17 20:11 98 35 05/03/17 20:00 100.2 106 20 133/68 (89) 100 05/03/17 20:00 108 05/03/17 20:00 35 05/03/17 18:00 116 05/03/17 16:00 100.5 96 21 151/66 (94) 99 05/03/17 16:00 35 05/03/17 16:00 96 05/03/17 14:08 100 35 05/03/17 14:00 108 05/03/17 12:00 98.6 96 18 129/59 (82) 96 05/03/17 12:00 35 05/03/17 12:00 96 05/03/17 11:02 99 35 05/03/17 10:00 87 05/03/17 08:30 35 05/03/17 08:17 35 05/03/17 08:17 99 35 05/03/17 08:00 98.8 90 16 124/60 (81) 100 05/03/17 08:00 35 05/03/17 08:00 90 05/03/17 07:53 100 35 05/03/17 06:00 92 05/03/17 04:35 98 35 05/03/17 04:00 92 05/03/17 04:00 35 05/03/17 04:00 99.1 104 18 115/59 (77) 97 05/03/17 02:00 96 05/03/17 00:00 104 05/03/17 00:00 35 05/03/17 00:00 98.7 104 17 115/59 (77) 98 2018 23:50 99 35 20/18 22:00 114 20/18 20:22 94 35 20/18 20:00 35 18 20:00 98.5 112 20 87/52 (64) 95 18 20:00 114 20/18 18:00 130 2018 16:13 97 35 05/02/17 16:00 98.9 92 23 143/63 (89) 99 18 16:00 92 18 16:00 35 18 15:25 35 05/02/17 14:00 109 05/02/17 12:25 99 35 18 12:00 87 05/02/17 12:00 35 05/02/17 12:00 98.2 87 19 148/70 (96) 98 05/02/17 10:00 97 05/02/17 08:59 98 35 05/02/17 08:00 35 05/02/17 08:00 98.2 105 18 149/72 (97) 99 05/02/17 08:00 105 05/02/17 06:00 97 18 04:00 35 05/02/17 04:00 96 05/02/17 04:00 98.6 96 18 147/68 (94) 99 18 03:30 99 35 18 02:00 88 18 00:00 35 05/02/17 00:00 98.2 90 20 161/69 (99) 100 18 00:00 90 18 22:28 100 35 05/01/18 22:00 86 18 20:02 100 35 05/01/18 20:00 97.8 92 16 100/58 (72) 100 05/01/18 20:00 35 05/01/18 20:00 92 05/01/18 18:00 97 05/01/18 16:00 35 18 16:00 98 18 16:00 98.8 98 18 89/54 (66) 96 18 15:29 99 35 05/01/18 14:00 83 18 12:06 100 100 05/01/17 12:00 105 05/01/17 12:00 98.7 105 20 135/68 (90) 98 05/01/17 12:00 35 05/01/17 11:09 95 35 (Lacho Lacey) Physical Examination GENERAL: Lethargic, no sedation infusing, no apparent distress. Intubated and on PCV settings. HEENT: Left craniotomy surgical incision well approximated, crusting essentially off, no evident drainage, erythema or streaking. PERRLA 3mm. Orally intubated. NGT left nare. Erosion of the philtrum. MUSCULOSKELETAL: No clubbing or deformity evident. Moves extremities to noxious stimulation. NEUROLOGICAL: Lethargic, w/o any sedation infusing. No eye opening to voice or noxious stimulation. Nonverbal, intubated. Facial grimacing to noxious stimulation. Weak grasp w/left hand a few seconds after command. Varying withdrawal of all extremities to local noxious stimulation. Extension response to BLE w/central noxious stimulation. (Lacho Lacey) Lab, Micro, Other Results Laboratory Tests Test 05/02/17 04:40 05/03/17 05:47 05/04/17 04:59 Blood Urea Nitrogen 36 MG/DL 52 MG/DL 73 MG/DL Creatinine 1.03 MG/DL 2.51 MG/DL 4.28 MG/DL Random Glucose 148 MG/DL 204 MG/DL 174 MG/DL Calcium Level 8.8 MG/DL 8.0 MG/DL 8.1 MG/DL Sodium Level 149 MEQ/L 145 MEQ/L 144 MEQ/L Potassium Level 3.7 MEQ/L 4.3 MEQ/L 4.5 MEQ/L Chloride Level 111 MEQ/L 112 MEQ/L 112 MEQ/L Carbon Dioxide Level 31.1 MEQ/L 23.4 MEQ/L 23.7 MEQ/L Anion Gap 7 MEQ/L 10 MEQ/L 8 MEQ/L Estimat Glomerular Filtration Rate 71 ML/MIN 25 ML/MIN 14 ML/MIN White Blood Count 14.9 TH/MM3 14.3 TH/MM3 Red Blood Count 3.89 MIL/MM3 3.51 MIL/MM3 Hemoglobin 10.8 GM/DL 9.9 GM/DL Hematocrit 33.6 % 29.9 % Mean Corpuscular Volume 86.2 FL 85.1 FL Mean Corpuscular Hemoglobin 27.7 PG 28.2 PG Mean Corpuscular Hemoglobin Concent 32.1 % 33.2 % Red Cell Distribution Width 16.5 % 16.3 % Platelet Count 460 TH/MM3 426 TH/MM3 Mean Platelet Volume 8.0 FL 7.8 FL Neutrophils (%) (Auto) 89.5 % 91.2 % Lymphocytes (%) (Auto) 3.6 % 2.5 % Monocytes (%) (Auto) 6.4 % 5.5 % Eosinophils (%) (Auto) 0.2 % 0.5 % Basophils (%) (Auto) 0.3 % 0.3 % Neutrophils # (Auto) 13.4 TH/MM3 13.1 TH/MM3 Lymphocytes # (Auto) 0.5 TH/MM3 0.4 TH/MM3 Monocytes # (Auto) 1.0 TH/MM3 0.8 TH/MM3 Eosinophils # (Auto) 0.0 TH/MM3 0.1 TH/MM3 Basophils # (Auto) 0.0 TH/MM3 0.0 TH/MM3 CBC Comment DIFF FINAL DIFF FINAL Differential Comment Prealbumin 10 MG/DL Free Thyroxine 1.08 NG/DL Thyroid Stimulating Hormone 3rd Gen 2.050 uIU/ML (Lacho Lacey) Medical Decision Making Impression and Plan Impression: 1. 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 Dementia 4. Cardiac murmur Patient lethargic, moves extremities to noxious stimulation. Reviewed labs for today. Interval improvement in leukocytosis. Interval drop in haemoglobin. Interval resolution in thrombocytosis. Sodium 144. Interval worsening in renal function. T max 100.5 yesterday. Sputum culture w/Gram negative rods on preliminary, Gram stain final w/many WBCs & heavy mixed mary. CT brain demonstrated improvement in the left frontal subdural haematoma and chronic hygromas, no haemorrhage or mass effect. EEG consistent w/severe encephalopathy. KWAME #1 was removed . KWAME #2 removed . POD #20 () s/p: Left frontoparietal craniotomy for evacuation of subacute on chronic subdural hematoma Postoperative Diagnosis: (1) Subdural hematoma, chronic (2) Acute subdural hematoma 1. Left hemisphere subacute on chronic subdural hematoma 2. Acute right frontal subdural hematoma POD #17 () s/p: Revision left frontoparietal craniotomy evacuation of recurrent left hemisphere subdural hematoma Postoperative Diagnosis: (1) Acute subdural hematoma Recurrent left hemisphere subdural hematoma Plan: Primary management per Gravel Wheeler. Neuro checks. Repeat CT brain for any decline in neuro status. Mechanical DVT prophylaxis. Hold pharmacologic DVT prophylaxis. Stress ulcer prophylaxis. (Lacho Lacey) Attending Statement The exam, history, and the medical decision-making described in the above note were completed with the assistance of the mid-level provider. I reviewed and agree with the findings presented. I attest that I had a [id number] encounter with the patient on the same day, and personally performed and documented my assessment and findings in the medical record. He is intubated, off sedation. He initially will not open his eyes or following commands for me to voice or sternal rub. With noxious stimulation over the chest, he grimaces and then to voice opens his eyes and focuses on me to the right side. He gives me a strong left grasp to command, not moving the right side. Incision dry Persistent encephalopathy following evacuation subdural hematoma. However he is still able to focus and follow with his eyes and grasp left hand to command. Overall prognosis remains somewhat poor. Palliative care is now following. (Sylvester Odom MD) Lacho Lacey May 04, 2017 10:36 Sylvester Odom MD May 04, 2017 21:23
--- NOTE | 2017-05-04 12:45 | HHI.CCPN ---
Subjective Remarks/Hospital Course 04/12: 71-year-old male presents for evaluation after he fell hitting his head. Per family report they were in the bathroom trying to change his undergarments when he slipped and fell hitting his head. He is not on anticoagulant. The patient is pleasantly confused and patient's daughter states this is his baseline. He has had no altered mental status since the fall. No vomiting. The patient reports a mild headache without radiation. No neck pain or back pain. He has been ambulatory without difficulty since the fall. The CT head performed in the emergency department shows bilateral subdural hematomas in addition to parafalcine subdural hematoma, left frontal and temporal lobe intraparenchymal hemorrhages and subfalcine herniation from [id number]. 04/13: Resting in bed comfortably at the time of my evaluation this morning. Confused, does not know the year. Knows he is in the hospital. Moves all 4 extremity's. Does not appear to be in any acute distress. 04/14: Afebrile. The patient continues to be confused but easily following commands notable systolic ejection murmur, echo pending. Patient scheduled for neurosurgical intervention this afternoon. 04/15: Tmax 99.3. The patient status post craniotomy with evacuation of subdural hematoma last evening, remained intubated, only on sedation with propofol infusion and requiring low-dose phenylephrine to maintain map greater than 65. Sedation was briefly lightened last evening postoperatively, and the patient was extremely agitated. IV fluids changed from D5W to normal saline with [address] brain performed. INR pending. 04/16: Tmax 99.8 Patient agitated during the night , swinging his legs out of the bed while on maximum doses of propofol infusion, fentanyl infusion low-dose added this a.m. Patient's diet advance will begin tube feeds this a.m. The patient was noted to have multifocal PVCs intermittent during the night potassium level 3.2 currently being repleted with K-Phos. 04/17: Tmax 101.6. The patient underwent emergent craniotomy for evacuation of acute recurrent left subdural hematoma last evening. The patient continues on 3 % normal saline, with serial sodium and osmole is being followed. Currently weaning slowly sedation for neuro assessment. Patient noted to have a significant elevation in WBC count of 22, blood cultures urine cultures and sputum cultures obtained. Chest x-ray now showing bilateral lung opacities edema versus possible infectious process being ruled out. Echo revealed patient has severe aortic stenosis with a roommate mean gradient of 44. The patient continues on phenylephrine for vasopressors support at this time. 04/18: Last evening, the patient went into A. fib RVR, heart rate low 100s, with self resolution. This a.m. the patient continues to have sinus rhythm/sinus tachycardia 90-105 with frequent multifocal PVCs. Electrolytes within normal limits. Given the significant medical history for severe aortic stenosis metoprolol 2.5 mg IV for rapid heart rate instituted. The patient continues on phenylephrine infusion for maintenance of a map greater than 65. Propofol is currently being weaned off. EEG revealed last night severe encephalopathy. No change in neurological status but patient still is under sedation patient withdraws to pain bilateral lower extremities and now has spontaneous eye opening intermittently. Leukocytosis notably is resolving. 04/19: Afebrile. Today afternoon the patient was noted to have a seizure, Ativan 1 mg IV push with resolution EEG ordered. Post seizure the patient was noted to have gross hematuria. Coag studies performed within normal limits, fibrinogen level slightly elevated . Creatinine kinase noted to be within normal limits. Hematuria thought to possibly be secondary to acquired von Willebrand's factor secondary to the shear stress from his severe aortic stenosis. DDAVP 2 mcgs IV 1 dose ordered this a.m.. Patient continues on 3% sodium chloride, phenylephrine has been discontinued. 04/20: Remains sedated, orally intubated on mechanical ventilation. Remains on 3 % saline. Off phenylephrine currently. Blood pressure labile. Tolerating tube feeds. 04/21: Remains sedated, orally intubated on mechanical ventilation. Stopping 3% saline. Tolerating tube feeds 04/22: Remains sedated, orally intubated on mechanical ventilation. On Levophed for pressor support. Spiking temperatures. Started on Zosyn yesterday. Continues to have hematuria. One unit PRBCs and fluid bolus ordered. 04/23: Appears to have developed ADRIANNE from osmotic diuresis associated with poorly controlled diabetes. Hyperglycemia exacerbated by dextrose containing solution. Will start constant carb feedings with glucerna, reduce levemir, add SSI coverage, and hydrate to correct fluid depletion. 04/24: Continued serum concentration associated with free water loss. No improvement in neurological function. Suspect osmotic diuresis from elevated glucose but will check urine specific gravity to rule out DI. 04/25: Osmolality improving. Continue DDAVP prn. 04/26: Alertness much improved after Na corrected. Required DDAVP X 2. Gas exchange acceptable and he is strong on CPAP trial. Right arm edematous, ultrasound with no thrombus. 04/27: Extubated > 24 hours ago and breathing comfortably. Protects airway. Electrolytes normalized. Transfer. 04/28: Tolerating extubation but respiratory rate increased, not labored. Osmolality normalized off of DDAVP. 04/29: more somnolent today, but still awake and following commands. sodium mp from 143 to 147 off DDAVP. will restart free water. ROS unobtainable due to patient's baseline mental status. 3-way contreras persists, less hematuria noted. Cr continues to improve. remains stable for transfer to floor. SUBJECTIVE: 04/30: Currently in room 1319 . Resting in sitting position bed. Currently resting in bed in no acute distress. Contreras catheter remains. 05/01: > 5 liters urine with rising BUN/Creatinine - appears to have slipped back into DI. 05/02: Daughter request Palliative Care consult to assist with decision making re continued aggressive care, trach. 05/03: Intermittent diabetes insipidus causing big problems for kidneys. Episodic diuresis unpredictable and between bouts he develops pulmonary edema. Remains very weak and unable to tolerate vent weaning trials. 05/04: Patient continues to deteriorate. He will not survive this hospitalization. Objective Vital Signs Date Time Temp Pulse Resp B/P (MAP) Pulse Ox O2 Delivery O2 Flow Rate FiO2 05/04/17 11:10 97 35 05/04/17 08:00 99.4 100 16 141/74 (96) 04/30/17 20:27 Venturi Mask Intake and Output 05/04/17 05/04/17 05/05/17 08:00 16:00 00:00 Intake Total 897 ml Output Total 375 ml Balance 522 ml Result Diagram: 05/04/17 0459 05/04/17 0459 Imaging Last Impressions Head CT 04/27/17 0000 Signed Impressions: Service Date/Time: Thursday, April 27, 2017 11:04 - CONCLUSION: 1. Interval removal of the patient's subdural drain. There is still a small amount of subdural hemorrhage remaining along the left frontal cortex. The remainder of the hemorrhage along the parietal is no longer identified. Findings were discussed in detail above. Luis Moreno MD Chest X-Ray 04/26/17 0400 Signed Impressions: Service Date/Time: Wednesday, April 26, 2017 04:12 - CONCLUSION: No significant interval change. Zeferino Hewitt MD Upper Extremity Ultrasound 04/25/17 0000 Signed Impressions: Service Date/Time: Tuesday, April 25, 2017 11:44 - CONCLUSION: No evidence of right upper extremity DVT. David Meade MD Cervical Spine CT 04/12/17 0000 Signed Impressions: Service Date/Time: Wednesday, April 12, 2017 17:36 - CONCLUSION: Degenerative spondylosis without any significant compromise to the thecal sac or the exiting nerve roots. Maria Guadalupe Alvarado MD Objective Remarks GENERAL: 71-year-old Elderly gentleman. SKIN: Warm and dry. No rash HEAD: Atraumatic. Normocephalic. EYES: Pupils equal and round 2 mm bilaterally and reactive. No scleral icterus. No injection or drainage. ENT: No nasal bleeding or discharge. Mucous membranes pink and moist. NECK: Trachea midline. Orally intubated. CARDIOVASCULAR: Regular rate and rhythm. NL S1, S2. 2/6 systolic murmur right upper sternal border RESPIRATORY: No wheezing rales or rhonchi, good terese air movement. GASTROINTESTINAL: Abdomen soft, non-tender, nondistended, no guarding. BS active. : Contreras catheter in place MUSCULOSKELETAL: Extremities without clubbing, cyanosis. Right arm with resolving gross edema. NEUROLOGICAL: Moves 4 limbs weakly. Withdraws to pain in all 4 extremities. Otherwise largely unresponsive. Procedures 1/2-left frontoparietal craniotomy with evacuation of subacute on chronic SDH /5-@ 0000 emergent craniotomy with evacuation of acute recurrent left subdural hematoma A/P Assessment and Plan NEURO/PSYCH TBI -Subdural hematoma S/P Left frontoparietal craniotomy with evacuation of subacute on chronic SDH S/P Emergency revision/evacuation of acute recurrent left subdural hematoma Acute encephalopathy- resolving slowly Dementia disorder NOS Depression -Neurosurgery following. Dr. Odom - Neuro checks per protocol - Repeat CT head per neurosurgery-stable acute subdural hematoma within frontal regions, bilateral 5 mm subfalcine herniation to the right - Seizure prophylaxis with levetiracetam has been discontinued GBG discontinued 04/26 - 04/18 EEG-severe encephalopathy avoid long-acting sedating meds continue home gabapentin. 400 mg 3 times a day Trazodone 100 mg at night, sertraline 150 mg daily and donepezil 10 mg a old discontinued secondary QTc prolongation Acetaminophen 650 mg by NG every 6 hours when necessary fever Continuing episodic DI RESP: COPD Acute hypoxic and hypercarbic respiratory failure - resolving. Nasal cannula to maintain saturations greater than equal to 90% Incentive spirometry while awake Albuterol/ipratropium aerosols every 6 hours with albuterol aerosols 2 hours. Dyspnea - Extubated 04/26. - aggressive pulmonary toilet with a cappella/CPAP incentive spirometry - PRVC vent mode 04/30 CV: Severe Hypotension- -resolved. Sinus tachycardia- resolved. Essential hypertension -04/14 EKG prolonged QT 475, continue close monitoring - 04/16 Echo-s Normal left ventricular size. Severe concentric left ventricular hypertrophy. The left ventricular systolic function is low normal with an estimated ejection fraction in the range of 50- 55%. Trace aortic valve regurgitation. Severe aortic valve stenosis. Moderate thickening of the aorticv alve leaflets. Aortic valve mean gradient is 44 mmHg. - Repeat monitor and storage bin tender QTc-holding benazepril and sertraline and donepezil Continue valsartan 80 mg by mouth daily for hypertension/home medication Started on metoprolol tartrate twice a day for hypertension GI: Acute protein calorie Malnutrition - severe - Continue tube feeds Glucerna 1.5 with goal 60cc/hr Famotidine 20 mg by 2 twice a day for bowel regimen Docusate sodium/senna 1 tablet twice a day for bowel regimen : Hematuria Maintain Contreras Dr. Woods has followed Neurology recommends replace Contreras catheter with a 18 [place]i coud and irrigate when necessary clots (previously with a 14 [place]i catheter) Continue tolterodine 4 mg by mouth daily for management of bladder spasms Holding trospium 20 mg twice a day ENDO: Diabetes mellitus - improved control. Central Diabetes Insipidus - Hold metformin 500 mg daily/home medication - Insulin sliding scale Novulog -high dose dose regimen, 25 units sliding scale past 24 hours Currently on insulin detemir 20 units twice a day - Unable to get clear urine due to bladder bleed. - Responding well to DDAVP, now stopped 04/28. Currently on free water 300mL po q4h - daily bmp to check sodium - Restart DDAVP ID: Septic shock- resolved. Pneumonia - resolved. Bacteremia- resolved. 04/19-blood cultures-staph intermedius 04/14 sets - contaminant 04/20 - Sputum cultures with e. coli, klebisella. s/p full course of Augie/ tazobactam 04/21 - 04/27. monitor off abx for fever, signs of infection. HEME: Last CBC 04/25. Leukocytosis. Recheck in a.m. 05/01 FEN: Hypernatremia See above treatment plan Continue free water 300 cc every 4 hours. Recheck BMP in a.m. Replace electrolytes as clinically indicated MSK PT evaluate and treat DVT GI prophylaxis - Teds SCDs - No pharmacological DVT prophylaxis due to subdural hematoma - Pepcid BID Overall impression: He has deteriorated considerably over the past 8 days, requiring reintubation and is now ventilator dependent. He will not recover from this illness more than enough to perhaps make it to an LTAC. I doubt he will survive this illness. Roland Figueroa MD May 04, 2017 12:45
--- NOTE | 2017-05-04 15:44 | PD.CONS ---
Consult Service Palliative Care . Consult Requested By Dr. Figueroa . Primary Care Physician [place] . Reason for Consultation a. To assist with evaluation and management of symptoms including: dyspnea, pain. b. To assist medical decision maker(s) with: better understanding of current medical conditions; weighing benefits/burdens of medical treatment options; making medical treatment decisions. . HPI History of Present Illness Mr. Hope is a 71 year old male with past medical history of dementia, COPD, diabetes, chronic pain, depression/anxiety, heart murmur and prostate cancer diagnosed in 2015 status post radiation therapy. Patient was living at home with his daughter prior to admission. Patient was on aspirin prior to admission. Notes indicate patient had been to [facility] due to some pressure sensation/frontal headaches a few weeks prior to this admission, was diagnosed with sinus congestion, CT head was not obtained at that time. Patient presented to [facility] emergency department on 04/12/17 after he fell when trying to change his undergarments in the restroom, slipped and fell hitting his head. Upon arrival to the emergency department the patient's mental status had not changed since his fall, no vomiting, mild headache was reported. Patient remained ambulatory since the fall. Initial emergency room findings included: * CT head - bilateral subdural hematoma is in addition to parafalcine subdural hematoma, left frontal and temporal lobe intraparenchymal hemorrhages and subfalcine herniation from left to right. * CT cervical spine degenerative spondylosis without any significant compromise to the thecal sac or exiting nerve roots. * Creatinine 1.0, BUN 20, potassium 3.9, sodium 137 * total protein 6.9, albumin 3.6 * lipase 161 Patient was admitted to ICU with subdural hematoma. Neurosurgery, Dr. Odom was consulted. 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 Echocardiogram revealed EF 50 -55% severe aortic stenosis, severe left ventricular hypertrophy. On 04/17/17 patient underwent revision of left frontoparietal craniotomy evacuation of recurrent left hemisphere subdural hematoma notes indicate findings of moderate densely clotted acute recurrent left hemisphere subdural hematoma primarily in the frontal region. Hospital course in review includes patient without significant neurologic recovery. He was medically extubated on 04/26/17 and required reintubation on . He has also had intermittent diabetes insipidus causing worsening renal function. He has had episodic diuresis unpredictable and between bouts he develops pulmonary edema. Also being treated for pneumonia. Remains very weak and unable to tolerate vent weaning trials. Now with significant worsening renal function, creatinine 4.28, BUN 14. Palliative care was consulted to assist with further clarification of treatment goals in this patient with head injury and vent dependence. In speaking with Dr. Figueroa, patient continues to deteriorate and not likely survive this hospitalization. . Function/Cognitive Trajectory Patient moved in with his daughter earlier this year as he was unable to care for himself. At baseline quite confused, conversing only a few words or short sentences, unable to stay on task with conversation. Usually very active, fidgeting constantly. He has had ongoing trajectory of decline in the months leading up to this admission. . Review of Systems ROS Limitations: Intubated (on mech vent), Altered Mental Status (dementia at baseline) Constitutional: COMPLAINS OF: Fatigue, Change in appetite (decreased), Generalized weakness Eyes: COMPLAINS OF: Blurred vision Respiratory: COMPLAINS OF: Shortness of breath Genitourinary: COMPLAINS OF: Urinary incontinence (wore depends due to incontinence prior to admission) Hematologic/Lymphatics: COMPLAINS OF: Bruising Psychiatric: COMPLAINS OF: Anxiety, Confusion (dementia), Depression Other ROS: ROS per EMR review and daughterMaggy's review, pt unresponsive on vent. Past Family Social History Coded Allergies: No Known Allergies (Verified Allergy, Unknown, 04/12/17) Past Medical History Dementia Diabetes Heart murmur COPD Chronic pain Depression Anxiety Cataracts Prostate cancer diagnosed in 2015 status post radiation therapy . Past Surgical History No reported surgeries prior to this admission. . Reported Medications Reported Meds & Active Scripts Active Reported Dipyridamole 25 Mg Tab 25 Mg PO DAILY Gabapentin 400 Mg Cap 400 Cap PO TID Glucophage (Metformin HCl) 500 Mg Tab 500 Mg PO DAILY With a meal Valsartan 80 Mg Tab 80 Mg PO DAILY Trazodone (Trazodone HCl) 100 Mg Tablet 100 Mg PO HS Trospium ER 60 Mg Cap 20 Mg PO BID Pravastatin 40 Mg Tab 40 Mg PO DAILY Ventolin Hfa 18 GM Inh (Albuterol Sulfate) 90 Mcg/Act Aer 2 Puff INH Q4-6H PRN Codeine Sulfate 30 Mg Tab 30 Mg PO Q6H PRN Zoloft (Sertraline HCl) 100 Mg Tab 150 Mg PO DAILY Donepezil 10 Mg Tab 10 Mg PO HS Current Medications Medications (Trade) Dose Ordered Sig/Ashli Route Start Time Stop Time Status Last Admin (Keppra) 500 mg Q12HR PO 04/12/17 21:00 Future Hold 04/14/17 09:56 (Aricept) 10 mg HS PO 04/12/17 21:00 Future Hold 04/17/17 21:48 (Pravachol) 40 mg DAILY PO 04/13/17 09:00 05/04/17 09:39 (Zoloft) 150 mg DAILY PO 04/13/17 09:00 Future Hold 04/18/17 09:11 (Diovan) 80 mg DAILY PO 04/13/17 09:00 05/04/17 09:38 (Desyrel) 100 mg HS PO 04/12/17 21:00 Future Hold 04/13/17 20:18 (NS Flush) 2 ml UNSCH PRN IV FLUSH 04/12/17 20:30 (NS Flush) 2 ml BID IV FLUSH 04/12/17 21:00 05/04/17 09:38 (Zofran Inj) 4 mg Q6H PRN IV PUSH 04/12/17 20:30 04/14/17 03:35 Miscellaneous Information 1 Q361D XX 04/12/17 20:30 (Chlorhexidine 2% Cloth) 3 pack Taper DAILY@04 TOP 04/13/17 04:00 04/09/18 03:59 (Chlorhexidine 2% Cloth) 3 pack UNSCH PRN TOP 04/12/17 20:30 (Julia-Colace) 1 tab BID PO 04/12/17 21:00 05/04/17 09:38 (Milk Of Magnesia Liq) 30 ml Q12H PRN PO 04/12/17 20:30 (Senokot) 17.2 mg Q12H PRN PO 04/12/17 20:30 (Dulcolax Supp) 10 mg DAILY PRN RECTAL 04/12/17 20:30 05/03/17 09:12 (Lactulose Liq) 30 ml DAILY PRN PO 04/12/17 20:30 (Apresoline Inj) 20 mg Q4H PRN IV PUSH 04/14/17 12:30 05/02/17 15:39 (Lopressor) 12.5 mg Q12HR PO 04/19/17 09:00 Future hold 05/04/17 09:39 (Pill Splitter) 1 ea UNSCH PRN OTHER 04/19/17 09:00 (Sodium Chloride) 2 gm DAILY NG 04/19/17 14:00 Future Hold (NovoLOG SUPPLEMENTAL SCALE) 1 Q6HR SQ 04/21/17 18:00 05/04/17 12:00 (D50w (Vial) Inj) 25 ml UNSCH PRN IV 04/21/17 14:15 04/23/17 05:22 (Glucagon Inj) 1 mg UNSCH PRN IM/SQ 04/21/17 14:15 (Cathflo Activase Inj) 2 mg Q2H PRN INTRACATH 04/21/17 14:15 04/22/17 03:39 (Detrol La) 4 mg DAILY PO 04/21/17 15:00 05/04/17 09:39 (Levemir Inj) 20 units Q12HR SQ 04/24/17 21:00 05/04/17 09:00 (Free Water) 300 ml Q4HR G-TUBE 04/29/17 12:00 05/04/17 13:10 (Tylenol 650 Mg/ 20 ml Liq) 650 mg Q6H PRN NG 04/30/17 09:45 (Albuterol Neb) 2.5 mg Q2HR NEB PRN NEB 04/30/17 09:45 (Lacrilube Opht Oint) 1 applic Q12HR EACH EYE 04/30/17 21:00 05/04/17 09:00 (Magic Mouthwash Adult Liq) 10 ml Q6H PRN SWISH-SPIT 05/02/17 15:45 05/03/17 09:09 Sodium Chloride 1,000 ml @ 100 mls/hr Q10H IV 05/02/17 21:00 05/04/17 09:40 (Ddavp Inj) 2 mcg Q12H IV PUSH 05/03/17 08:00 05/04/17 09:39 (Pepcid) 10 mg BID NG 05/03/17 21:00 05/04/17 09:38 Ceftriaxone Sodium 1000 mg/ Sodium Chloride 100 ml @ 200 mls/hr Q12H IV 05/03/17 18:00 05/04/17 05:16 (Neurontin) 300 mg DAILY PO 05/05/17 09:00 Family History Father had cancer. Mother had Alzheimer's. Sister with Alzheimer's. . Substance Use Tobacco: Quit smoking 25 years ago. Alcohol: none. Prescription med abuse: none. Illicits: none. . Psychosocial History in 2002. Has 2 sosn (Hua and Dale - live in [place]) and 2 daughters (Maggy in [place] and Magalie in [place]). Was in the [employer] in [employer]. 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 Enjoyed spending time with family including local great grandchildren. . Spiritual/Cultural Factors None. . 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 ) Date completed: 12/16/16 . Health Care Surrogate(s): No written HCS on POA or Living will, will contact post closing specialist to see if there is such documentation. . Documented care wishes: Standard living will. . Today's verbally stated goals: Patient is not capacitated to make his own health care decisions, will not regain capacity given underlying dementia. No designation of healthcare surrogate in copies of written advance directives on chart, will contact post closing specialist see if this documentation is missing. . In the absence of written advance directives, health care proxy decision-making falls to the majority of patient's 4 adult children. . Family/friends goals: Spoke with daughter, Maggy, she wishes to speak with her siblings prior to making tracheostomy/PEG tube decisions. She will provide palliative care number should they have additional questions or concerns, but feels we will be able to help with these conversations. Family will also be considering CODE STATUS. . Ethical and Legal Issues Patient is not capacitated to make his own health care decisions, will not regain capacity given underlying dementia. No designation of healthcare surrogate in copies of written advance directives on chart, will contact post closing specialist see if this documentation is missing. . In the absence of written advance directives, health care proxy decision-making falls to the majority of patient's 4 adult children. . Physical Exam Vital Signs Date Time Temp Pulse Resp B/P (MAP) Pulse Ox O2 Delivery O2 Flow Rate FiO2 05/04/17 12:00 35 05/04/17 12:00 97.8 95 17 141/68 (92) 98 05/04/17 11:10 97 35 05/04/17 09:45 35 05/04/17 08:16 35 05/04/17 08:16 35 05/04/17 08:00 35 05/04/17 08:00 99.4 100 16 141/74 (96) 96 05/04/17 07:40 98 35 05/04/17 06:00 76 05/04/17 04:01 97 35 05/04/17 04:00 35 05/04/17 04:00 99.1 102 18 142/76 (98) 98 05/04/17 04:00 102 05/04/17 02:00 100 05/04/17 00:30 98 35 05/04/17 00:00 35 05/04/17 00:00 99.7 102 17 130/70 (90) 98 05/04/17 00:00 102 05/03/17 22:00 100 05/03/17 20:11 98 35 05/03/17 20:00 100.2 106 20 133/68 (89) 100 05/03/17 20:00 108 05/03/17 20:00 35 05/03/17 18:00 116 05/03/17 16:00 100.5 96 21 151/66 (94) 99 05/03/17 16:00 35 05/03/17 16:00 96 Exam CONSTITUTIONAL/GENERAL: This is an elderly, frail, critically ill patient, off sedation on mechanical ventilation TUBES/LINES/DRAINS: NG tube right nare, ETT, PIV bilateral, wrist restraints, Munoz with bladder irrigation, SCD's. SKIN: No jaundice, rashes, or lesions. Ecchymoses on upper extremities. No wounds seen anteriorly. Skin temperature appropriate. Not diaphoretic. HEAD: (anatomy surgical incision healing. EYES: Pupils equal and round and reactive. No scleral icterus. No injection or drainage. ENT: unable to assess hearing given current condition. NG tube right nare. Oral ulcers noted. NECK: Trachea midline. CARDIOVASCULAR: Regular rate and rhythm, systolic murmur noted right sternal border. RESPIRATORY/CHEST: lungs clear to auscultation. GASTROINTESTINAL: Abdomen soft, nondistended. Bowel sounds present. GENITOURINARY: Without palpable bladder distension. Munoz catheter in place. MUSCULOSKELETAL: Extremities with edema. No mottling or clubbing. LYMPHATICS: No palpable cervical or supraclavicular adenopathy. NEUROLOGICAL:Unresponsive off sedation. Withdraws to pain right UE, bilateral LE. Does not open eyes to voice, exam or pain. PSYCHIATRIC: Unresponsive off sedation. . Diagnostic Tests Laboratory Laboratory Tests Test 05/02/17 04:40 05/03/17 05:47 05/04/17 04:59 Blood Urea Nitrogen 36 MG/DL (7-18) 52 MG/DL (7-18) 73 MG/DL (7-18) Creatinine 1.03 MG/DL (0.60-1.30) 2.51 MG/DL (0.60-1.30) 4.28 MG/DL (0.60-1.30) Random Glucose 148 MG/DL (74-106) 204 MG/DL (74-106) 174 MG/DL (74-106) Calcium Level 8.8 MG/DL (8.5-10.1) 8.0 MG/DL (8.5-10.1) 8.1 MG/DL (8.5-10.1) Sodium Level 149 MEQ/L (136-145) 145 MEQ/L (136-145) 144 MEQ/L (136-145) Potassium Level 3.7 MEQ/L (3.5-5.1) 4.3 MEQ/L (3.5-5.1) 4.5 MEQ/L (3.5-5.1) Chloride Level 111 MEQ/L (98-107) 112 MEQ/L (98-107) 112 MEQ/L (98-107) Carbon Dioxide Level 31.1 MEQ/L (21.0-32.0) 23.4 MEQ/L (21.0-32.0) 23.7 MEQ/L (21.0-32.0) Anion Gap 7 MEQ/L (5-15) 10 MEQ/L (5-15) 8 MEQ/L (5-15) Estimat Glomerular Filtration Rate 71 ML/MIN (>89) 25 ML/MIN (>89) 14 ML/MIN (>89) White Blood Count 14.9 TH/MM3 (4.0-11.0) 14.3 TH/MM3 (4.0-11.0) Red Blood Count 3.89 MIL/MM3 (4.50-5.90) 3.51 MIL/MM3 (4.50-5.90) Hemoglobin 10.8 GM/DL (13.0-17.0) 9.9 GM/DL (13.0-17.0) Hematocrit 33.6 % (39.0-51.0) 29.9 % (39.0-51.0) Mean Corpuscular Volume 86.2 FL (80.0-100.0) 85.1 FL (80.0-100.0) Mean Corpuscular Hemoglobin 27.7 PG (27.0-34.0) 28.2 PG (27.0-34.0) Mean Corpuscular Hemoglobin Concent 32.1 % (32.0-36.0) 33.2 % (32.0-36.0) Red Cell Distribution Width 16.5 % (11.6-17.2) 16.3 % (11.6-17.2) Platelet Count 460 TH/MM3 (150-450) 426 TH/MM3 (150-450) Mean Platelet Volume 8.0 FL (7.0-11.0) 7.8 FL (7.0-11.0) Neutrophils (%) (Auto) 89.5 % (16.0-70.0) 91.2 % (16.0-70.0) Lymphocytes (%) (Auto) 3.6 % (9.0-44.0) 2.5 % (9.0-44.0) Monocytes (%) (Auto) 6.4 % (0.0-8.0) 5.5 % (0.0-8.0) Eosinophils (%) (Auto) 0.2 % (0.0-4.0) 0.5 % (0.0-4.0) Basophils (%) (Auto) 0.3 % (0.0-2.0) 0.3 % (0.0-2.0) Neutrophils # (Auto) 13.4 TH/MM3 (1.8-7.7) 13.1 TH/MM3 (1.8-7.7) Lymphocytes # (Auto) 0.5 TH/MM3 (1.0-4.8) 0.4 TH/MM3 (1.0-4.8) Monocytes # (Auto) 1.0 TH/MM3 (0-0.9) 0.8 TH/MM3 (0-0.9) Eosinophils # (Auto) 0.0 TH/MM3 (0-0.4) 0.1 TH/MM3 (0-0.4) Basophils # (Auto) 0.0 TH/MM3 (0-0.2) 0.0 TH/MM3 (0-0.2) CBC Comment DIFF FINAL DIFF FINAL Differential Comment Prealbumin 10 MG/DL (20-40) Free Thyroxine 1.08 NG/DL (0.76-1.46) Thyroid Stimulating Hormone 3rd Gen 2.050 uIU/ML (0.358-3.740) Result Diagram: 05/04/17 0459 05/04/17 0459 Microbiology Microbiology Date/Time Source Procedure Growth Status 05/02/17 21:40 Sputum Endotracheal Gram Stain - Final Resulted 05/02/17 21:40 Sputum Culture - Preliminary Klebsiella Pneumoniae Resulted Imaging Last Impressions Head CT 05/01/17 0927 Signed Impressions: Service Date/Time: Monday, May 01, 2017 11:52 - CONCLUSION: 1. Mild interval improvement in left subdural hematoma. 2. 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 3. No new hemorrhage or mass effect. Simon Haley MD Chest X-Ray 05/01/17 0000 Signed Impressions: Service Date/Time: Monday, May 01, 2017 04:41 - CONCLUSION: 1. Stable ETT and NGT. 2. Stable minimal bibasilar airspace disease, likely atelectasis. 3. No significant interval change. Thierry Barros MD Upper Extremity Ultrasound 04/25/17 0000 Signed Impressions: Service Date/Time: Tuesday, April 25, 2017 11:44 - CONCLUSION: No evidence of right upper extremity DVT. David Meade MD Cervical Spine CT 04/12/17 0000 Signed Impressions: Service Date/Time: Wednesday, April 12, 2017 17:36 - CONCLUSION: Degenerative spondylosis without any significant compromise to the thecal sac or the exiting nerve roots. Maria Guadalupe Alvarado MD . Procedures * 05/01/17 - reintubated * 04/26/17 - extubated * 04/19/17 - right subclavian central line placed * 04/17/17 - revision of left frontoparietal craniotomy evacuation of recurrent left hemisphere subdural hematoma notes indicate findings of moderate densely clotted acute recurrent left hemisphere subdural hematoma primarily in the frontal region. 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 . Patient/Family Conference Present at Family Conference: Met with daughterMaggy in consult room. . Family Conference Time (mins): 120 Family Conference Location: Consult Room Issues Discussed: * Palliative care role, purpose, approach * Additional medical, psychosocial, and spiritual history * Patients general health, functional status, and cognitive changes in the months leading up to the current hospitalization * Patient/family understanding of the current medical problems * Patient/family understanding of prognosis * Patients goals of care as best understood from advance directives and/or conversations and/or values * Current medical treatment options and benefits/burdens of those options * Likely scenarios comparing ongoing aggressive care with a transition to comfort measures only * Questions answered to the best of my ability * Palliative care contact information provided Consider CODE status, trach/ PEG decisions. Palliative care number provided, will need to speak with patient's 3 other adult children to further clarify treatment goals. . Assessment and Plan Symptom Scale: (1) Pain 0-10 Scale: Unable to quantify Comment: Patient unresponsive on mechanical ventilation, unable to qualify or quantify pain. Furrowed brow, appears painful to minimal stimulation, likely secondary to recent surgeries, confusion, tubes, oral ulcerations, peripheral neuropathy, general debility and bedbound status. On gabapentin. . (2) Encephalopathy 0-10 Scale: Unable to quantify Comment: likely to underlying dementia, subdural hematomas, surgery, worsening renal function. . (3) Dyspnea 0-10 Scale: Unable to quantify Comment: Remains on mechanical ventilation Pertinent Non-Medical Issues Psychosocial: . Has 4 adult children (Maggy, Magalie, Dale and uHa). Lives with daughter Maggy in [place]. Spiritual: unknown. Legal: Patient is not capacitated to make his own health care decisions, will not regain capacity given underlying dementia. No designation of healthcare surrogate in copies of written advance directives on chart, will contact post closing specialist see if this documentation is missing. . In the absence of written advance directives, health care proxy decision-making falls to the majority of patient's 4 adult children. Ethical issues impacting care: no known concerns at this time. . Important Contacts * Maggy Saleh, daughter: [phone] lives with patient in [place] * Magalie Best, daughter: [phone] lives in [place] * Dale, son: lives in [place] * Hua, son: lives in [place] . Prognosis Mr. Hope is a 71-year-old male with multiple medical comorbidities including COPD, dementia, diabetes, severe aortic stenosis. He has had ongoing trajectory of decline in the months leading up to hospitalization, admitted with bilateral subdural hematoma's, parafalcine subdural hematoma, left frontal and temporal lobe intraparenchymal hemorrhages status post surgery without evidence of neurologic improvement. Able to be weaned from mechanical ventilation, worsening renal function and pneumonia. Overall prognosis appears poor for meaningful recovery. . Code Status: Full Code Plan * Decision Maker: Patient is not capacitated to make his own health care decisions, will not regain capacity given underlying dementia. No designation of healthcare surrogate in copies of written advance directives on chart, will contact post closing specialist see if this documentation is missing. . In the absence of written advance directives, health care proxy decision-making falls to the majority of patient's 4 adult children. * FULL CODE * Palliative care met with daughter, Maggy, she wishes to speak with her siblings prior to making tracheostomy/PEG tube decisions. Offered family meeting with all 4 children, Maggy will speak with her siblings to offer meeting versus palliative care number so that I can provide medical update, review prognosis and clarify goals. Family will also be considering CODE STATUS. * Discussed with Dr. Figueroa and nursing staff. * SYMPTOMS: Pain: Furrowed brow, appears painful to minimal stimulation, likely secondary to recent surgeries, confusion, tubes, oral ulcerations, peripheral neuropathy, general debility and bedbound status. On gabapentin. Dyspnea: remains on mechanical ventilation. Encephalopathy: likely to underlying dementia, subdural hematomas, surgery, worsening renal function. No new medication recommendations at this time. * Palliative care number provided. * Palliative care will continue to follow throughout hospital course to assist with symptom management and clarification of goals as needed. Thank you for the opportunity to participate in the care of Mr. Hope. Attestation To help prompt me to consider important information that might be impacting today's encounter and assessment, information from prior notes written by myself or my colleagues may have been "brought forward" into today's note. My signature on this note, however, is an attestation that I personally performed the exam, history, and/or decision-making noted today, and, unless otherwise indicated, the interactions with patient, family, and staff as well as the review of records all occurred today. I also attest that the listed assessment and stated plan reflect my best clinical judgment today based on the combination of historical information, prior notes, and today's exam/ interactions. When time spent is documented, it refers only to time spent today by the signer, or if indicated, combined time spent today by collaborating physician/nurse practitioner. Mandie Gustafson May 04, 2017 15:44
[2017-05-05] VITALS (17 sets, daily range): BP systolic 118–132; BP diastolic 60–74; PULSE 66–113; RESP 16–20; TEMP 98.2–99.9; O2SAT 94–100
[2017-05-05] MEDS: FREE WATER G-TUBE SCH ×5 (04:00→20:00)
[2017-05-05] MEDS: SODIUM CHLOR 0.9% 1000 ML INJ 1,000 ML IV SCH ×2 (05:16→16:34)
[2017-05-05] MEDS: INSULIN ASPART SUPPLEMENTAL SCALE SQ SCH ×3 (05:57→18:00)
[2017-05-05] MEDS: cefTRIAXone INJ 1,000 MG in SODIUM CHLORIDE 0.9% INJ 100 ML IV SCH ×2 (05:57→17:08)
[2017-05-05] MEDS: INSULIN DETEMIR 100 UNITS/ML VIAL SQ SCH ×2 (09:00→20:43)
[2017-05-05] MEDS: DESMOPRESSIN ACETATE 4 MCG/ML VIAL IV PUSH SCH (09:19)
[2017-05-05] MEDS: VALSARTAN 80 MG TAB PO SCH (09:19)
[2017-05-05] MEDS: PRAVASTATIN SOD 40 MG TAB PO SCH (09:19)
[2017-05-05] MEDS: TOLTERODINE TARTRATE 4 MG CAP LA PO SCH (09:19)
[2017-05-05] MEDS: GABAPENTIN 300 MG CAP PO SCH (09:19)
[2017-05-05] MEDS: FAMOTIDINE 20 MG TAB NG SCH ×2 (09:20→20:08)
[2017-05-05] MEDS: DOCUSATE SODIUM 50 MG/SENNA 8.6 MG TAB PO SCH ×2 (09:20→20:08)
[2017-05-05] MEDS: METOPROLOL TARTRATE 25 MG TAB PO SCH ×2 (09:20→20:09)
[2017-05-05] MEDS: SODIUM CHLORIDE 0.9% FLUSH 10 ML FLUSH IV FLUSH SCH ×2 (09:20→20:43)
[2017-05-05] MEDS: ARTIFICIAL TEARS OPTH OINT 3.5 APPLIC/3.5 GM TUBO EACH EYE SCH ×2 (09:21→20:08)
--- NOTE | 2017-05-05 11:47 | HHI.NSPN ---
(Lacho Lacey Betsey JOSEPH) History Chief Complaint: Unable to obtain due to patient's clinical condition. (Lacho Lacey [employer]) Interval History 04/12: Mr. Hope is a 71-year-old male who presented to the emergency room today after he fell at home in the presence of his daughter. She states that he lost his balance while trying to put some close on, and fell and struck his head. There was no loss of consciousness. No seizure activity or nausea or emesis reported. The patient has baseline dementia and confusion, but no definite overall change in his mentation after the fall earlier today, according to his daughter, who he lives with. He presently has no complaint of headache. He does have some chronic neck and back pain. 04/13: The patient was examined in the presence of the family today and a more detailed history has been obtained. They indicate chronic progressive dementia to the point that the patient has had to move in with his daughter earlier this year. He cannot care for himself. He is usually quite confused, conversing with only a few words or short sentences and unable to stay on task with conversations. He is usually very active, fidgeting constantly. They state that his mental status today is not significantly changed from his overall baseline. He did go to the emergency room a couple of weeks ago at [facility] due to some pressure sensation or frontal headaches and was diagnosed with sinus congestion. A CT scan of the head was not obtained. He has had no definite falls over the past few weeks up until yesterday. 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 Post-operatively he returned to [facility] for further care and monitoring. 04/15: This morning the patient is obtunded and has no sedation infusing. He does withdraw to noxious stimulation. He does not open his eyes but does have facial grimacing and turns his head to noxious stimulation. ADDENDUM at 1854: Patient was sedated with propofol 50 mcg/kg/min when seen, the pump was not visible at the time. BET. 04/16: When seen the patient is obtunded but does have the propofol drip infusing. Nursing reports that he moves all extremities but does become agitated when the propofol is weaned down. He moves all extremities to noxious stimulation when seen but did not follow any commands. 04/17: The patient remains obtunded and continues to be sedated with a propofol drip. He is now on phenylephrine for blood pressure support. He does not respond to commands and only withdraws the lower extremities to noxious stimulation. He does have some facial grimacing but no eye opening to noxious stimulation. He did go emergently late last night/early this morning for a revision of the left frontoparietal craniotomy for evacuation of a recurrent left hemisphere subdural haematoma. 04/18/17: intubated, propofol just turned off, intermittent movement to ext per nursing, not opening eyes. 04/19/17: nursing reports seizures yesterday, repeat CT head stable residual SDH and 5 mm midline shift. Awaiting EEG. 04/20: Patient with right eye partially opened when seen but Nursing just stimulated patient. He remains intubated and mechanically ventilated. He withdraws to noxious stimuli to the lower extremities but not the upper. He does have facial grimacing to noxious stimulation. Nursing reports that overnight KWAME #1 had 170 mL of yellowish drainage. She also says the patient has been off sedation approximately 36 hours. 04/21: The patient was examined in the presence of the family today and a more detailed history has been obtained. They indicate chronic progressive dementia to the point that the patient has had to move in with his daughter earlier this year. He cannot care for himself. He is usually quite confused, conversing with only a few words or short sentences and unable to stay on task with conversations. He is usually very active, fidgeting constantly. They state that his mental status today is not significantly changed from his overall baseline. He did go to the emergency room a couple of weeks ago at [facility] due to some pressure sensation or frontal headaches and was diagnosed with sinus congestion. A CT scan of the head was not obtained. He has had no definite falls over the past few weeks up until yesterday. 04/23: When seen the patient did have his eyes partially opened and he opened them wider to voice. He was moving the left upper and both lower extremities to varying degrees spontaneously. It was questionable if he moved the left lower to command but did move all extremities to noxious stimulation. 04/24: It is difficult to say if the patient was asleep when seen or not. It did appear he had his eyes partially open since Nursing was in the room. He did open them briefly to my voice. He spontaneously moved the left hand some and gripped this practitioner's hand. He moved the lower extremities to command. There was no noted movement of the right upper to noxious stimulation but he did have facial grimacing. 04/25: Patient is sedated but will respond to painful stimulation. 04/26: Patient now extubated and much more alert and responsive. He is not indicating any significant pain complaints. 04/27: This morning the patient's eyes are open. He did squeeze to command with the left hand and had withdrawal of the other extremities to noxious stimulation. He has been extubated but is nonverbal. He has mild respiratory effort on a nasal cannula. 04/28: When seen this morning the patient is lethargic. He did not open his eyes to voice or follow any commands. He did have slight withdrawal of the left upper and both lower extremities to noxious stimulation. He did have facial grimacing to noxious stimulation as well. 04/29: The patient is awake this morning. He is on a nasal cannula. He squeezes with the left hand when a hand is placed in it. He moves both feet to noxious stimulation. He had no movement of the right upper extremity. 04/30: This morning the patient is sitting up in the cardiac chair with his eyes closed. There was no evident eye opening to voice. He was noted to move the left lower extremity spontaneously. He did give a slight squeeze with the left hand to command and appears to have tried to give a thumbs up when asked to. He did move the right lower extremity to noxious stimulation and there was muscle contraction noted to the right forearm to noxious stimulation. 05/01: When seen this morning the patient is intubated and on CPAP. He does not respond to any commands or open his eyes. He does spontaneously move the left upper extremity and both lower to noxious stimulation. There was no response with the right upper. Nursing reports that during the night his systolic blood pressure dropped into the 70s, his respirations were in the 30s and he was tachycardiac in the 130s. He was therefore emergently intubated. He was given three litres of intravenous fluids and his systolic blood pressure improved. 05/02: The patient is seen moving both lower extremities spontaneously. He remains intubated and mechanically ventilated. He is not on any sedation. His daughter is present and states that he did open his eyes briefly to her voice and that he was squeezing her hand. He did squeeze this practitioner's hand to command and moved both lower extremities to noxious stimulation. There was no movement of the right upper. 05/03: The patient is lethargic when seen. He does not have any sedation infusing. He remains intubated but is on CPAP. He does spontaneously move the lower extremities but is not following any commands. He did move his extremities to noxious stimulation as well as have facial grimacing. 05/04: This morning the patient is lethargic when seen. He continues to be intubated and is now mechanically ventilated. He does squeeze twice with the left hand and moves all extremities to noxious stimulation. He is not on any sedation. 05/05: When seen the patient is lethargic. He remains intubated and on PCV settings. He opened his eyes to voice. There was some questionable movement of the feet to command but he did withdraw the lower extremities to noxious stimulation. He didn't follow commands with the left upper but did have some movement with noxious stimulation. (Lacho Lacey) System Review Comments Unable to obtain due to patient's clinical condition. (Lacho Lacey) Exam Results 05/03/17 05/03/17 05/04/17 05/04/17 05/05/17 05/05/17 06:00 18:00 06:00 18: 06: 18:00 Intake Total 1848 ml 1444 ml 2597 ml 1315 ml 3861 ml Output Total 1065.0 ml 3295.0 ml 875 ml 0 ml 500 ml Balance 783.0 ml -1851.0 ml 1722 ml 1315 ml 3361 ml IV Total 1000 ml 1100 ml 3043 ml Tube Feeding 248 ml 544 ml 597 ml 715 ml 518 ml Tube Irrigant 600 ml Other 600 ml 900 ml 900 ml 300 ml Output Urine Total 1065 ml 3275 ml 875 ml 500 ml Stool Total 0 ml Tube Feeding Residual Discard 0 ml 20.0 ml 0 ml # Bowel Movements 0 1 1 Vital Signs Date Time Temp Pulse Resp B/P (MAP) Pulse Ox O2 Delivery O2 Flow Rate FiO2 05/05/17 10:00 89 05/05/17 08:00 81 05/05/17 08:00 35 05/05/17 08:00 98.8 81 17 132/74 (93) 100 05/05/17 07:43 100 35 05/05/17 06:00 66 05/05/17 05:11 100 35 05/05/17 04:00 35 05/05/17 04:00 92 05/05/17 04:00 98.3 92 20 122/66 (84) 100 05/05/17 02:00 96 05/05/17 01:11 100 35 05/05/17 00:00 98.8 100 16 122/63 (82) 98 05/05/17 00:00 35 05/05/17 00:00 100 05/04/17 22:00 98 05/04/17 20:37 97 35 05/04/17 20:00 35 05/04/17 20:00 98.2 106 24 145/81 (102) 97 05/04/17 20:00 106 05/04/17 16:00 35 05/04/17 16:00 98.4 106 20 139/69 (92) 100 05/04/17 15:25 99 35 05/04/17 12:00 35 05/04/17 12:00 97.8 95 17 141/68 (92) 98 05/04/17 11:10 97 35 05/04/17 09:45 35 05/04/17 08:16 35 05/04/17 08:16 35 05/04/17 08:00 35 05/04/17 08:00 99.4 100 16 141/74 (96) 96 05/04/17 07:40 98 35 05/04/17 06:00 76 05/04/17 04:01 97 35 05/04/17 04:00 35 05/04/17 04:00 99.1 102 18 142/76 (98) 98 05/04/17 04:00 102 05/04/17 02:00 100 05/04/17 00:30 98 35 05/04/17 00:00 35 05/04/17 00:00 99.7 102 17 130/70 (90) 98 05/04/17 00:00 102 05/03/17 22:00 100 05/03/17 20:11 98 35 05/03/17 20:00 100.2 106 20 133/68 (89) 100 05/03/17 20:00 108 05/03/17 20:00 35 05/03/17 18:00 116 05/03/17 16:00 100.5 96 21 151/66 (94) 99 05/03/17 16:00 35 05/03/17 16:00 96 05/03/17 14:08 100 35 05/03/17 14:00 108 05/03/17 12:00 98.6 96 18 129/59 (82) 96 05/03/17 12:00 35 05/03/17 12:00 96 05/03/17 11:02 99 35 05/03/17 10:00 87 05/03/17 08:30 35 05/03/17 08:17 35 05/03/17 08:17 99 35 05/03/17 08:00 98.8 90 16 124/60 (81) 100 05/03/17 08:00 35 05/03/17 08:00 90 05/03/17 07:53 100 35 05/03/17 06:00 92 05/03/17 04:35 98 35 05/03/17 04:00 92 05/03/17 04:00 35 05/03/17 04:00 99.1 104 18 115/59 (77) 97 05/03/17 02:00 96 05/03/17 00:00 104 05/03/17 00:00 35 05/03/17 00:00 98.7 104 17 115/59 (77) 98 18 23:50 99 35 18 22:00 114 05/02/17 20:22 94 35 05/02/17 20:00 35 05/02/17 20:00 98.5 112 20 87/52 (64) 95 18 20:00 114 05/02/17 18:00 130 18 16:13 97 35 05/02/17 16:00 98.9 92 23 143/63 (89) 99 05/02/17 16:00 92 05/02/17 16:00 35 05/02/17 15:25 35 05/02/17 14:00 109 05/02/17 12:25 99 35 05/02/17 12:00 87 05/02/17 12:00 35 05/02/17 12:00 98.2 87 19 148/70 (96) 98 (Lacho Lacey) Physical Examination GENERAL: Lethargic, no sedation infusing, no apparent distress. Intubated and on PCV settings. HEENT: Left craniotomy surgical incision well approximated, still some crusting , no evident drainage, erythema or streaking. PERRLA 3mm. Orally intubated. NGT left nare. Erosion of the philtrum. MUSCULOSKELETAL: No clubbing or deformity evident. Moves LUE & BLE to noxious stimulation. NEUROLOGICAL: Lethargic, w/o any sedation infusing. Eye opening to voice. Nonverbal, intubated. Facial grimacing to noxious stimulation. Strong withdrawal of BLE to local noxious stimulation w/questionable trace movement to command. Trace movement of the LUE to local noxious stimulation but none to the RUE. (Lacho Lacey) Lab, Micro, Other Results Laboratory Tests Test 05/03/17 05:47 05/04/17 04:59 White Blood Count 14.9 TH/MM3 14.3 TH/MM3 Red Blood Count 3.89 MIL/MM3 3.51 MIL/MM3 Hemoglobin 10.8 GM/DL 9.9 GM/DL Hematocrit 33.6 % 29.9 % Mean Corpuscular Volume 86.2 FL 85.1 FL Mean Corpuscular Hemoglobin 27.7 PG 28.2 PG Mean Corpuscular Hemoglobin Concent 32.1 % 33.2 % Red Cell Distribution Width 16.5 % 16.3 % Platelet Count 460 TH/MM3 426 TH/MM3 Mean Platelet Volume 8.0 FL 7.8 FL Neutrophils (%) (Auto) 89.5 % 91.2 % Lymphocytes (%) (Auto) 3.6 % 2.5 % Monocytes (%) (Auto) 6.4 % 5.5 % Eosinophils (%) (Auto) 0.2 % 0.5 % Basophils (%) (Auto) 0.3 % 0.3 % Neutrophils # (Auto) 13.4 TH/MM3 13.1 TH/MM3 Lymphocytes # (Auto) 0.5 TH/MM3 0.4 TH/MM3 Monocytes # (Auto) 1.0 TH/MM3 0.8 TH/MM3 Eosinophils # (Auto) 0.0 TH/MM3 0.1 TH/MM3 Basophils # (Auto) 0.0 TH/MM3 0.0 TH/MM3 CBC Comment DIFF FINAL DIFF FINAL Differential Comment Blood Urea Nitrogen 52 MG/DL 73 MG/DL Creatinine 2.51 MG/DL 4.28 MG/DL Random Glucose 204 MG/DL 174 MG/DL Calcium Level 8.0 MG/DL 8.1 MG/DL Sodium Level 145 MEQ/L 144 MEQ/L Potassium Level 4.3 MEQ/L 4.5 MEQ/L Chloride Level 112 MEQ/L 112 MEQ/L Carbon Dioxide Level 23.4 MEQ/L 23.7 MEQ/L Anion Gap 10 MEQ/L 8 MEQ/L Estimat Glomerular Filtration Rate 25 ML/MIN 14 ML/MIN Prealbumin 10 MG/DL Free Thyroxine 1.08 NG/DL Thyroid Stimulating Hormone 3rd Gen 2.050 uIU/ML (Lacho Lacey) Medical Decision Making Impression and Plan Impression: 1. 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 Dementia 4. Cardiac murmur Patient lethargic, moves BLE & LUE extremities to noxious stimulation. T max 99.4 yesterday at 0800. Sputum culture w/Gram negative rods on final . CT brain demonstrated improvement in the left frontal subdural haematoma and chronic hygromas, no haemorrhage or mass effect. EEG consistent w/severe encephalopathy. KWAME #1 was removed . KWAME #2 removed . POD #21 () s/p: Left frontoparietal craniotomy for evacuation of subacute on chronic subdural hematoma Postoperative Diagnosis: (1) Subdural hematoma, chronic (2) Acute subdural hematoma 1. Left hemisphere subacute on chronic subdural hematoma 2. Acute right frontal subdural hematoma POD #18 () s/p: Revision left frontoparietal craniotomy evacuation of recurrent left hemisphere subdural hematoma Postoperative Diagnosis: (1) Acute subdural hematoma Recurrent left hemisphere subdural hematoma Plan: Primary management per [employer] [employer]. Neuro checks. Repeat CT brain for any decline in neuro status. Mechanical DVT prophylaxis. Hold pharmacologic DVT prophylaxis. Stress ulcer prophylaxis. (Lacho Lacey) Attending Statement The exam, history, and the medical decision-making described in the above note were completed with the assistance of the mid-level provider. I reviewed and agree with the findings presented. I attest that I had a [id number] encounter with the patient on the same day, and personally performed and documented my assessment and findings in the medical record. I spoke at length with the patient's daughter in his room on 05/05/2017 in the evening. We discussed his overall prognosis from both a neurologic as well as an overall medical standpoint. She understands that she has multiple medical issues including renal failure which will likely require dialysis. Although he has some potential for improvement of his neurologic function, it is unlikely that he will ever regain any independent status, particularly since he had significant cognitive dysfunction prior to developing the subdural hematoma. Palliative care continues to follow the patient. (Sylvester Odom MD) Lacho Lacey May 05, 2017 11:47 Sylvester Odom MD May 06, 2017 21:27
--- NOTE | 2017-05-05 13:02 | HHI.CCPN ---
Subjective Remarks/Hospital Course 04/12: 71-year-old male presents for evaluation after he fell hitting his head. Per family report they were in the bathroom trying to change his undergarments when he slipped and fell hitting his head. He is not on anticoagulant. The patient is pleasantly confused and patient's daughter states this is his baseline. He has had no altered mental status since the fall. No vomiting. The patient reports a mild headache without radiation. No neck pain or back pain. He has been ambulatory without difficulty since the fall. The CT head performed in the emergency department shows bilateral subdural hematomas in addition to parafalcine subdural hematoma, left frontal and temporal lobe intraparenchymal hemorrhages and subfalcine herniation from [id number]. 04/13: Resting in bed comfortably at the time of my evaluation this morning. Confused, does not know the year. Knows he is in the hospital. Moves all 4 extremity's. Does not appear to be in any acute distress. 04/14: Afebrile. The patient continues to be confused but easily following commands notable systolic ejection murmur, echo pending. Patient scheduled for neurosurgical intervention this afternoon. 04/15: Tmax 99.3. The patient status post craniotomy with evacuation of subdural hematoma last evening, remained intubated, only on sedation with propofol infusion and requiring low-dose phenylephrine to maintain map greater than 65. Sedation was briefly lightened last evening postoperatively, and the patient was extremely agitated. IV fluids changed from D5W to normal saline with [address] brain performed. INR pending. 04/16: Tmax 99.8 Patient agitated during the night , swinging his legs out of the bed while on maximum doses of propofol infusion, fentanyl infusion low-dose added this a.m. Patient's diet advance will begin tube feeds this a.m. The patient was noted to have multifocal PVCs intermittent during the night potassium level 3.2 currently being repleted with K-Phos. 04/17: Tmax 101.6. The patient underwent emergent craniotomy for evacuation of acute recurrent left subdural hematoma last evening. The patient continues on 3 % normal saline, with serial sodium and osmole is being followed. Currently weaning slowly sedation for neuro assessment. Patient noted to have a significant elevation in WBC count of 22, blood cultures urine cultures and sputum cultures obtained. Chest x-ray now showing bilateral lung opacities edema versus possible infectious process being ruled out. Echo revealed patient has severe aortic stenosis with a roommate mean gradient of 44. The patient continues on phenylephrine for vasopressors support at this time. 04/18: Last evening, the patient went into A. fib RVR, heart rate low 100s, with self resolution. This a.m. the patient continues to have sinus rhythm/sinus tachycardia 90-105 with frequent multifocal PVCs. Electrolytes within normal limits. Given the significant medical history for severe aortic stenosis metoprolol 2.5 mg IV for rapid heart rate instituted. The patient continues on phenylephrine infusion for maintenance of a map greater than 65. Propofol is currently being weaned off. EEG revealed last night severe encephalopathy. No change in neurological status but patient still is under sedation patient withdraws to pain bilateral lower extremities and now has spontaneous eye opening intermittently. Leukocytosis notably is resolving. 04/19: Afebrile. Today afternoon the patient was noted to have a seizure, Ativan 1 mg IV push with resolution EEG ordered. Post seizure the patient was noted to have gross hematuria. Coag studies performed within normal limits, fibrinogen level slightly elevated . Creatinine kinase noted to be within normal limits. Hematuria thought to possibly be secondary to acquired von Willebrand's factor secondary to the shear stress from his severe aortic stenosis. DDAVP 2 mcgs IV 1 dose ordered this a.m.. Patient continues on 3% sodium chloride, phenylephrine has been discontinued. 04/20: Remains sedated, orally intubated on mechanical ventilation. Remains on 3 % saline. Off phenylephrine currently. Blood pressure labile. Tolerating tube feeds. 04/21: Remains sedated, orally intubated on mechanical ventilation. Stopping 3% saline. Tolerating tube feeds 04/22: Remains sedated, orally intubated on mechanical ventilation. On Levophed for pressor support. Spiking temperatures. Started on Zosyn yesterday. Continues to have hematuria. One unit PRBCs and fluid bolus ordered. 04/23: Appears to have developed ADRIANNE from osmotic diuresis associated with poorly controlled diabetes. Hyperglycemia exacerbated by dextrose containing solution. Will start constant carb feedings with glucerna, reduce levemir, add SSI coverage, and hydrate to correct fluid depletion. 04/24: Continued serum concentration associated with free water loss. No improvement in neurological function. Suspect osmotic diuresis from elevated glucose but will check urine specific gravity to rule out DI. 04/25: Osmolality improving. Continue DDAVP prn. 04/26: Alertness much improved after Na corrected. Required DDAVP X 2. Gas exchange acceptable and he is strong on CPAP trial. Right arm edematous, ultrasound with no thrombus. 04/27: Extubated > 24 hours ago and breathing comfortably. Protects airway. Electrolytes normalized. Transfer. 04/28: Tolerating extubation but respiratory rate increased, not labored. Osmolality normalized off of DDAVP. 04/29: more somnolent today, but still awake and following commands. sodium mp from 143 to 147 off DDAVP. will restart free water. ROS unobtainable due to patient's baseline mental status. 3-way contreras persists, less hematuria noted. Cr continues to improve. remains stable for transfer to floor. SUBJECTIVE: 04/30: Currently in room 1319 . Resting in sitting position bed. Currently resting in bed in no acute distress. Contreras catheter remains. 05/01: > 5 liters urine with rising BUN/Creatinine - appears to have slipped back into DI. 05/02: Daughter request Palliative Care consult to assist with decision making re continued aggressive care, trach. 05/03: Intermittent diabetes insipidus causing big problems for kidneys. Episodic diuresis unpredictable and between bouts he develops pulmonary edema. Remains very weak and unable to tolerate vent weaning trials. 05/04: Patient continues to deteriorate. He will not survive this hospitalization. 05/05: No improvement. Objective Vital Signs Date Time Temp Pulse Resp B/P (MAP) Pulse Ox O2 Delivery O2 Flow Rate FiO2 05/05/17 12:10 99 35 05/05/17 12:00 90 05/05/17 12:00 99.3 17 121/69 (86) Intake and Output 05/05/17 05/05/17 05/06/17 08:00 16:00 00:00 Intake Total 3861 ml Output Total 500 ml Balance 3361 ml Result Diagram: 05/04/17 0459 05/04/17 0459 Other Results Microbiology Date/Time Source Procedure Growth Status 05/02/17 21:40 Sputum Endotracheal Gram Stain - Final Complete 05/02/17 21:40 Sputum Culture - Final Klebsiella Pneumoniae Complete Imaging Last Impressions Head CT 04/27/17 0000 Signed Impressions: Service Date/Time: Thursday, April 27, 2017 11:04 - CONCLUSION: 1. Interval removal of the patient's subdural drain. There is still a small amount of subdural hemorrhage remaining along the left frontal cortex. The remainder of the hemorrhage along the parietal is no longer identified. Findings were discussed in detail above. Luis Moreno MD Chest X-Ray 04/26/17 0400 Signed Impressions: Service Date/Time: Wednesday, April 26, 2017 04:12 - CONCLUSION: No significant interval change. Zeferino Hewitt MD Upper Extremity Ultrasound 04/25/17 0000 Signed Impressions: Service Date/Time: Tuesday, April 25, 2017 11:44 - CONCLUSION: No evidence of right upper extremity DVT. David Meade MD Cervical Spine CT 04/12/17 0000 Signed Impressions: Service Date/Time: Wednesday, April 12, 2017 17:36 - CONCLUSION: Degenerative spondylosis without any significant compromise to the thecal sac or the exiting nerve roots. Maria Guadalupe Alvarado MD Objective Remarks GENERAL: 71-year-old Elderly gentleman. SKIN: Warm and dry. No rash HEAD: Atraumatic. Normocephalic. EYES: Pupils equal and round 2 mm bilaterally and reactive. No scleral icterus. No injection or drainage. ENT: No nasal bleeding or discharge. Mucous membranes pink and moist. NECK: Trachea midline. Orally intubated. CARDIOVASCULAR: Regular rate and rhythm. NL S1, S2. 2/6 systolic murmur right upper sternal border RESPIRATORY: No wheezing rales or rhonchi, good terese air movement. GASTROINTESTINAL: Abdomen soft, non-tender, nondistended, no guarding. BS active. : Contreras catheter in place MUSCULOSKELETAL: Extremities without clubbing, cyanosis. Right arm with resolving gross edema. NEUROLOGICAL: Moves 4 limbs weakly. Withdraws to pain in all 4 extremities. Otherwise largely unresponsive. Procedures 1/2-left frontoparietal craniotomy with evacuation of subacute on chronic SDH 04/17-@ 0000 emergent craniotomy with evacuation of acute recurrent left subdural hematoma A/P Assessment and Plan NEURO/PSYCH TBI -Subdural hematoma S/P Left frontoparietal craniotomy with evacuation of subacute on chronic SDH S/P Emergency revision/evacuation of acute recurrent left subdural hematoma Acute encephalopathy- resolving slowly Dementia disorder NOS Depression -Neurosurgery following. Dr. Odom - Neuro checks per protocol - Repeat CT head per neurosurgery-stable acute subdural hematoma within frontal regions, bilateral 5 mm subfalcine herniation to the right - Seizure prophylaxis with levetiracetam has been discontinued GBG discontinued 04/26 - 04/18 EEG-severe encephalopathy avoid long-acting sedating meds continue home gabapentin. 400 mg 3 times a day Trazodone 100 mg at night, sertraline 150 mg daily and donepezil 10 mg a old discontinued secondary QTc prolongation Acetaminophen 650 mg by NG every 6 hours when necessary fever Continuing episodic DI RESP: COPD Acute hypoxic and hypercarbic respiratory failure - resolving. Nasal cannula to maintain saturations greater than equal to 90% Incentive spirometry while awake Albuterol/ipratropium aerosols every 6 hours with albuterol aerosols 2 hours. Dyspnea - Extubated 04/26. - aggressive pulmonary toilet with a cappella/CPAP incentive spirometry - PRVC vent mode 04/30 CV: Severe Hypotension- -resolved. Sinus tachycardia- resolved. Essential hypertension -04/14 EKG prolonged QT 475, continue close monitoring - 04/16 Echo-s Normal left ventricular size. Severe concentric left ventricular hypertrophy. The left ventricular systolic function is low normal with an estimated ejection fraction in the range of 50- 55%. Trace aortic valve regurgitation. Severe aortic valve stenosis. Moderate thickening of the aorticv alve leaflets. Aortic valve mean gradient is 44 mmHg. 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 Woods has followed Neurology recommends replace Contreras catheter with a 18 [place]ican coud and irrigate when necessary clots (previously with a 14 Jamaican catheter) Continue tolterodine 4 mg by mouth daily for management of bladder spasms Holding trospium 20 mg twice a day ENDO: Diabetes mellitus - improved control. Central Diabetes Insipidus - Hold metformin 500 mg daily/home medication - Insulin sliding scale Novulog -high dose dose regimen, 25 units sliding scale past 24 hours Currently on insulin detemir 20 units twice a day - Unable to get clear urine due to bladder bleed. - Responding well to DDAVP, now stopped 04/28. Currently on free water 300mL po q4h - daily bmp to check sodium - Restart DDAVP ID: Septic shock- resolved. Pneumonia - resolved. Bacteremia- resolved. 04/19-blood cultures-staph intermedius 04/14 sets - contaminant 04/20 - Sputum cultures with e. coli, klebisella. s/p full course of Augie/ tazobactam 04/21 - 04/27. monitor off abx for fever, signs of infection. HEME: Last CBC 04/25. Leukocytosis. Recheck in a.m. 05/01 FEN: Hypernatremia See above treatment plan Continue free water 300 cc every 4 hours. Recheck BMP in a.m. Replace electrolytes as clinically indicated MSK PT evaluate and treat DVT GI prophylaxis - Teds SCDs - No pharmacological DVT prophylaxis due to subdural hematoma - Pepcid BID Overall impression: He has deteriorated considerably over the past 9 days, requiring reintubation and is now ventilator dependent. He will not recover from this illness more than enough to perhaps make it to an LTAC. He will not survive this illness. Roland Figueroa MD May 05, 2017 13:02
[2017-05-05 16:12] LABS: ALBUMIN 1.5 GM/DL (3.4-5.0); BICARBONATE 20.7 MEQ/L (21.0-32.0); CALCIUM 7.7 MG/DL (8.5-10.1); CREATININE 6.37 MG/DL (0.60-1.30); PHOSPHORUS 8.3 MG/DL (2.5-4.9)
--- NOTE | 2017-05-05 17:22 | HHI.HCPN ---
Reason for visit a. To assist with evaluation and management of symptoms including: dyspnea, pain. b. To assist medical decision maker(s) with: better understanding of current medical conditions; weighing benefits/burdens of medical treatment options; making medical treatment decisions. . Subjective/Interval History Patient seen and examined in ICU. Granddaughter at bedside, she is a international student advisor. Patient opens eyes, does not follow commands. Tmax 99.9. Remains on mech vent, FiO2 35%. Tachycardic. Potassium 5.7. Creatinine has increased significantly 6.37. Nephrology consult pending. I will contact family as I anticipate need for dialysis decisions. . Family/friend interactions 5pm: 20 minutes. Called Maggy balir to provide medical update and further clarify goals. She states her father would elect NO CODE and no hemodialysis. Maggy reports she gave my number to her siblings, advised I have not heard from them. She provided me with their phone numbers and asked that I call them to provide update and clarify goals with them as well. 5:25pm: Left message for Magalie blair to return call. 5:35pm: 25 minutes Spoke with sonHua to provide medical update. He wants to participate in decision making. Reviewed prognosis and decisions regarding Code status, dialysis. He does not think his father would want these measures, he would like to speak with his brother and will call me back soon with a decision. He will also ask Dale to call me. 7pm: 20 minutes. Call from Magalie blair. She wishes to participate in medical decision making. Review of hospital course and medical update provided. Reviewed prognosis and decisions regarding Code status, dialysis. After lengthy conversation, she elects NO CODE and no dialysis. She is certain her father would not find life prolonging measures based on prior conversations and written advanced directives. I have explained I am still waiting to hear from her brothers. 7:20 pm: 15 minutes. Call from Maggy blair and her , Clinton. Clinton has many questions about condition and prognosis. He is in agreement patient would not want life prolonging measures. He wishes they had known that this could have happened and they would have rather spent time quality time with the patient. Reviewed my conversation with Magalie and preliminary conversation with Hua. Awaiting return call from Hua and Dale. 8:35pm: 22 minutes. Call from sonDale. He apologizes for late call as he just got off work. He wishes to participate in medical decision making. Review of hospital course and medical update provided. Reviewed prognosis and decisions regarding Code status, dialysis. After lengthy conversation, he is leaning toward NO CODE and no dialysis. He wants to speak with his brother, Hua again before making a final decision. He will call Hua and they will call me back. I have explained that should patient code in the meantime he remains FULL CODE. 10:42pm: Message from sonHua he indicates he wants his father to be resuscitated in the event of cardiac arrest. He believes they made the decision for him to have surgery and that they "should let him have a fighting chance." He "knows the odds are not good but I have sen worse." He is appreciative of time spent. Requested family conference call/ meeting as family is not all in agreement. 10:45pm: Message from son Dale, he indicates he wants dialysis and cardiac resuscitation. He wants to "give him a little longer." He is very appreciative. I requested a family conference call/ meeting, as all children are not in agreement. He indicates the children have spoken and they should be calling me. 11:09pm: Voicemail on office extension from daughterMaggy to report she went to see patient deniseight, Dr. Odom visited during this time. Daughter tells me Dr. Odom and family felt patient was more alert, opening eyes for a few hours and following, showing signs of neurologic improvement. Family is hopeful given signs of neurologic improvement and family has decided they want to give him a chance. She verbalizes desire for FULL CODE and HD if needed. . Advance Directives Living Will: Copy in medical record Durable Power of Political Geographer: Copy in medical record (does not include health care decisions. ) Advance Directive Specifics Date completed: 12/16/16 . Health Care Surrogate(s): Patient is not capacitated to make his own health care decisions, will not regain capacity given underlying dementia. Has Living will and POA, neither include designation of healthcare surrogate. Contacted his divorce lawyer who reports HCS was never designated. . According to [place] statues, health care proxy decision-making falls to the majority of patient's 4 adult children. . Documented care wishes: Standard living will. . Significant change in goals: All 4 children wish to participate in medical decision making. 2 daughter desire NO CODE and no dialysis, consideirng comfort measures. 1 son, Dale leaning toward NO CODE, no dialysis, has not yet committed to this decision, he wants to speak with his brother, Hua again to make sure he is okay with this. Hua seemed to be leaning toward NO CODE but was struggling with decision. Awaiting for return call from Dale and Hua with their final decision. In the meantime continue FULL CODE. It may be helpful to have conference call meeting with children if they are considering transition to comfort measures, they rely on one another to make decisions. . Objective Vital Signs Date Time Temp Pulse Resp B/P (MAP) Pulse Ox O2 Delivery O2 Flow Rate FiO2 05/05/17 16:00 113 05/05/17 16:00 35 05/05/17 16:00 99.9 113 18 118/74 (89) 100 05/05/17 16:00 94 35 05/05/17 14:00 93 05/05/17 12:10 99 35 05/05/17 12:00 35 05/05/17 12:00 90 05/05/17 12:00 99.3 90 17 121/69 (86) 100 05/05/17 10:00 89 05/05/17 08:00 81 05/05/17 08:00 35 05/05/17 08:00 98.8 81 17 132/74 (93) 100 05/05/17 07:43 100 35 05/05/17 06:00 66 05/05/17 05:11 100 35 05/05/17 04:00 35 05/05/17 04:00 92 05/05/17 04:00 98.3 92 20 122/66 (84) 100 05/05/17 02:00 96 05/05/17 01:11 100 35 05/05/17 00:00 98.8 100 16 122/63 (82) 98 05/05/17 00:00 35 05/05/17 00:00 100 05/04/17 22:00 98 05/04/17 20:37 97 35 05/04/17 20:00 35 05/04/17 20:00 98.2 106 24 145/81 (102) 97 05/04/17 20:00 106 Intake & Output 05/05/17 05/05/17 07:00 19:00 Intake Total 3861 ml 1000 ml Output Total 500 ml Balance 3361 ml 1000 ml IV Total 3043 ml 1000 ml Tube Feeding 518 ml Other 300 ml Output Urine Total 500 ml # Bowel Movements 1 Physical Exam CONSTITUTIONAL/GENERAL: This is an elderly, frail, critically ill patient, off sedation on mechanical ventilation TUBES/LINES/DRAINS: NG tube right nare, ETT, PIV bilateral, wrist restraints, Munoz with bladder irrigation, SCD's. SKIN: No jaundice, rashes, or lesions. Ecchymoses on upper extremities. No wounds seen anteriorly. Skin temperature appropriate. Not diaphoretic. HEAD: craniotomy surgical incision healing. ENT: unable to assess hearing given current condition. NG tube right nare. Oral ulcers noted. CARDIOVASCULAR: Regular rate and rhythm, systolic murmur noted right sternal border. RESPIRATORY/CHEST: lungs clear to auscultation. GASTROINTESTINAL: Abdomen soft, nondistended. Bowel sounds present. GENITOURINARY: Without palpable bladder distension. Munoz catheter in place. MUSCULOSKELETAL: Extremities with edema. No mottling or clubbing. NEUROLOGICAL: Opens eyes intermittently. Does not follow commands. PSYCHIATRIC: Opens eyes intermittently. . Diagnostic Tests Laboratory Laboratory Tests Test 05/03/17 05:47 05/04/17 04:59 05/05/17 14:14 White Blood Count 14.9 TH/MM3 (4.0-11.0) 14.3 TH/MM3 (4.0-11.0) Red Blood Count 3.89 MIL/MM3 (4.50-5.90) 3.51 MIL/MM3 (4.50-5.90) Hemoglobin 10.8 GM/DL (13.0-17.0) 9.9 GM/DL (13.0-17.0) Hematocrit 33.6 % (39.0-51.0) 29.9 % (39.0-51.0) Mean Corpuscular Volume 86.2 FL (80.0-100.0) 85.1 FL (80.0-100.0) Mean Corpuscular Hemoglobin 27.7 PG (27.0-34.0) 28.2 PG (27.0-34.0) Mean Corpuscular Hemoglobin Concent 32.1 % (32.0-36.0) 33.2 % (32.0-36.0) Red Cell Distribution Width 16.5 % (11.6-17.2) 16.3 % (11.6-17.2) Platelet Count 460 TH/MM3 (150-450) 426 TH/MM3 (150-450) Mean Platelet Volume 8.0 FL (7.0-11.0) 7.8 FL (7.0-11.0) Neutrophils (%) (Auto) 89.5 % (16.0-70.0) 91.2 % (16.0-70.0) Lymphocytes (%) (Auto) 3.6 % (9.0-44.0) 2.5 % (9.0-44.0) Monocytes (%) (Auto) 6.4 % (0.0-8.0) 5.5 % (0.0-8.0) Eosinophils (%) (Auto) 0.2 % (0.0-4.0) 0.5 % (0.0-4.0) Basophils (%) (Auto) 0.3 % (0.0-2.0) 0.3 % (0.0-2.0) Neutrophils # (Auto) 13.4 TH/MM3 (1.8-7.7) 13.1 TH/MM3 (1.8-7.7) Lymphocytes # (Auto) 0.5 TH/MM3 (1.0-4.8) 0.4 TH/MM3 (1.0-4.8) Monocytes # (Auto) 1.0 TH/MM3 (0-0.9) 0.8 TH/MM3 (0-0.9) Eosinophils # (Auto) 0.0 TH/MM3 (0-0.4) 0.1 TH/MM3 (0-0.4) Basophils # (Auto) 0.0 TH/MM3 (0-0.2) 0.0 TH/MM3 (0-0.2) CBC Comment DIFF FINAL DIFF FINAL Differential Comment Blood Urea Nitrogen 52 MG/DL (7-18) 73 MG/DL (7-18) 101 MG/DL (7-18) Creatinine 2.51 MG/DL (0.60-1.30) 4.28 MG/DL (0.60-1.30) 6.37 MG/DL (0.60-1.30) Random Glucose 204 MG/DL (74-106) 174 MG/DL (74-106) 95 MG/DL (74-106) Calcium Level 8.0 MG/DL (8.5-10.1) 8.1 MG/DL (8.5-10.1) 7.7 MG/DL (8.5-10.1) Sodium Level 145 MEQ/L (136-145) 144 MEQ/L (136-145) 146 MEQ/L (136-145) Potassium Level 4.3 MEQ/L (3.5-5.1) 4.5 MEQ/L (3.5-5.1) 5.7 MEQ/L (3.5-5.1) Chloride Level 112 MEQ/L (98-107) 112 MEQ/L (98-107) 113 MEQ/L (98-107) Carbon Dioxide Level 23.4 MEQ/L (21.0-32.0) 23.7 MEQ/L (21.0-32.0) 20.7 MEQ/L (21.0-32.0) Anion Gap 10 MEQ/L (5-15) 8 MEQ/L (5-15) 12 MEQ/L (5-15) Estimat Glomerular Filtration Rate 25 ML/MIN (>89) 14 ML/MIN (>89) 9 ML/MIN (>89) Prealbumin 10 MG/DL (20-40) Free Thyroxine 1.08 NG/DL (0.76-1.46) Thyroid Stimulating Hormone 3rd Gen 2.050 uIU/ML (0.358-3.740) Albumin 1.5 GM/DL (3.4-5.0) Phosphorus Level 8.3 MG/DL (2.5-4.9) Result Diagram: 05/04/17 0459 05/05/17 1414 Microbiology Microbiology Date/Time Source Procedure Growth Status 05/02/17 21:40 Sputum Endotracheal Gram Stain - Final Complete 05/02/17 21:40 Sputum Culture - Final Klebsiella Pneumoniae Complete Imaging Last Impressions Head CT 05/01/17 8592 Signed Impressions: Service Date/Time: Monday, May 01, 2017 11:52 - CONCLUSION: 1. Mild interval improvement in left subdural hematoma. 2. 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 3. No new hemorrhage or mass effect. Simon Haley MD Chest X-Ray 05/01/17 0000 Signed Impressions: Service Date/Time: Monday, May 01, 2017 04:41 - CONCLUSION: 1. Stable ETT and NGT. 2. Stable minimal bibasilar airspace disease, likely atelectasis. 3. No significant interval change. Thierry Barros MD Upper Extremity Ultrasound 04/25/17 0000 Signed Impressions: Service Date/Time: Tuesday, April 25, 2017 11:44 - CONCLUSION: No evidence of right upper extremity DVT. David Meade MD Cervical Spine CT 04/12/17 0000 Signed Impressions: Service Date/Time: Wednesday, April 12, 2017 17:36 - CONCLUSION: Degenerative spondylosis without any significant compromise to the thecal sac or the exiting nerve roots. Maria Guadalupe Alvarado MD . Procedures * 05/01/17 - reintubated * 04/26/17 - extubated * 04/19/17 - right subclavian central line placed * 04/17/17 - revision of left frontoparietal craniotomy evacuation of recurrent left hemisphere subdural hematoma notes indicate findings of moderate densely clotted acute recurrent left hemisphere subdural hematoma primarily in the frontal region. 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 . Assessment and Plan Symptom Scale: (1) Pain 0-10 Scale: Unable to quantify Comment: Patient unresponsive on mechanical ventilation, unable to qualify or quantify pain. Furrowed brow, appears painful to minimal stimulation, likely secondary to recent surgeries, confusion, tubes, oral ulcerations, peripheral neuropathy, general debility and bedbound status. On gabapentin. . (2) Encephalopathy 0-10 Scale: Unable to quantify Comment: likely to underlying dementia, subdural hematomas, surgery, worsening renal function. . (3) Dyspnea 0-10 Scale: Unable to quantify Comment: Remains on mechanical ventilation Pertinent Non-Medical Issues Psychosocial: . Has 4 adult children (Maggy, Magalie, Dale and Hua). Lives with daughter Mgagy in [place]. Spiritual: unknown. Legal: : Patient is not capacitated to make his own health care decisions, will not regain capacity given underlying dementia. Has Living will and POA, neither include designation of healthcare surrogate. Contacted his divorce lawyer who reports HCS was never designated. . According to [place] statues, health care proxy decision-making falls to the majority of patient's 4 adult children. Ethical issues impacting care: no known concerns at this time. . Important Contacts * Maggy Saleh, daughter: [phone] lives with patient in [place] * Magalie Best, daughter: [phone] lives in [place] * Dale, son: lives in [place]: [phone] * Hua, son: lives in [place]: [phone] . Prognosis Mr. Hope is a 71-year-old male with multiple medical comorbidities including COPD, dementia, diabetes, severe aortic stenosis. He has had ongoing trajectory of decline in the months leading up to hospitalization, admitted with bilateral subdural hematoma's, parafalcine subdural hematoma, left frontal and temporal lobe intraparenchymal hemorrhages status post surgery without evidence of neurologic improvement. Able to be weaned from mechanical ventilation, worsening renal function and pneumonia. Overall prognosis appears poor for meaningful recovery. . Code Status: Full Code Plan * Decision Maker: Patient is not capacitated to make his own health care decisions, will not regain capacity given underlying dementia. Has Living will and POA, neither include designation of healthcare surrogate. Contacted his divorce lawyer who reports HCS was never designated. . According to [place] statues, health care proxy decision-making falls to the majority of patient's 4 adult children. * FULL CODE * Discussed with Dr. Figueroa. * After multiple conversations with children (Magalie Winter, Dale and Hua). All 4 children wish to participate in medical decision making. 2 daughter desire NO CODE and no dialysis, considering comfort measures. 1 son, Dale leaning toward NO CODE, no dialysis, has not yet committed to this decision, he wants to speak with his brother, Hua again to make sure he is okay with this. Hua seemed to be leaning toward NO CODE but was struggling with decision. Later messages received from Maggy Hunter and Hua that they want continued aggressive care, including FULL CODE and dialysis. PLEASE SEE FAMILY INTERACTION ABOVE. will continue to follow, given aggressive goals, I suspect they will also want trach and PEG - I did not address trach/PEG during my lengthy conversations over many hours tonight as initially they were leaning toward comfort. * OPAL Ray Palliative care will be off on 05/06/17, OPAL Donato will follow up to further clarify goals. * SYMPTOMS: Pain: Furrowed brow, appears painful to minimal stimulation, likely secondary to recent surgeries, confusion, tube, oral ulcerations, peripheral neuropathy, general debility and bedbound status. On gabapentin.Dyspnea: remains on mechanical ventilation. Encephalopathy: likely to underlying dementia, subdural hematomas, surgery, worsening renal function. No new medication recommendations at this time. * Palliative care will continue to follow throughout hospital course to assist with symptom management and clarification of goals as needed. Attestation To help prompt me to consider important information that might be impacting today's encounter and assessment, information from prior notes written by myself or my colleagues may have been "brought forward" into today's note. My signature on this note, however, is an attestation that I personally performed the exam, history, and/or decision-making noted today, and, unless otherwise indicated, the interactions with patient, family, and staff as well as the review of records all occurred today. I also attest that the listed assessment and stated plan reflect my best clinical judgment today based on the combination of historical information, prior notes, and today's exam/ interactions. When time spent is documented, it refers only to time spent today by the signer, or if indicated, combined time spent today by collaborating physician/nurse practitioner. Mandie Gustafson May 05, 2017 17:22
--- NOTE | 2017-05-05 18:51 | PD.CONS ---
HPI Consult Requested By Reason for Consult Acute renal insufficiency. Primary Care Physician Unknown History of Present Illness This patient is a 71-year-old male who unfortunately cannot provide any history at this time secondary to change in mental status and he is intubated on ventilatory support currently. Apparently the patient sustained a head injury and was admitted to this institution on April 12, 2017. Imaging studies reveal bilateral subdural hematoma. Patient also said to have a history of dementia, diabetes mellitus as well as COPD. His creatinine level was noted to have been 1.08 on May 02, 2016 subsequently deteriorating progressively thereafter it will level of 6.37 today with a potassium of 5.7. Patient also felt to have diabetes insipidus and has been receiving DDAVP. More recently however the patient has become oliguric. Critical care believes that the patient has a poor prognosis and family has been communicating with palliative care with considerations for a DNR CODE STATUS and possible hospice. No decision has been made as yet regarding dialytic support. Review of Systems ROS Limitations: Clinical Condition, Altered Mental Status Past Family Social History Allergies: Coded Allergies: No Known Allergies (Verified Allergy, Unknown, 04/12/17) Past Medical History Admission for bilateral subdural hematoma. Patient status post left frontal control parietal craniectomy for evacuation. COPD Dementia Diabetes mellitus Prostate cancer treated with radiation previously. Question of diabetes insipidus. Past Surgical History As above. Active Ordered Medications Current Medications Phytonadione 10 mg/Sodium Chloride 51 ml @ 100 mls/hr ONCE ONCE IV ; Start at 18:00; Stop 04/12/17 at 18:30; Status Cancel Prothrombin Complex Concent (Human) 2000 units/Syringe / Bag 0 ml @ 500 mls/hr ONCE ONCE IV ; Start 04/12/17 at 19:00; Stop 04/12/17 at 19:00; Status DC Levetriacetam 500 mg/Sodium Chloride 105 ml @ 420 mls/hr BOLUS ONCE IV Last administered on 04/12/17t 18:46; Start 04/12/17 at 18:30; Stop 04/12/17 at 18 :44; Status DC Phytonadione 10 mg/Sodium Chloride 51 ml @ 100 mls/hr ONCE ONCE IV ; Start at 18:30; Stop 04/12/17 at 18:31; Status DC Potassium Chloride/Sodium Chloride 1,000 ml @ 84 mls/hr [id number] IV Last administered on 04/12/17t 20:43; Start 04/12/17 at 18:30; Stop 04/12/17 at 20 :57; Status DC Docusate Sodium (Colace) 100 mg BID PO Last administered on 04/13/17at 08:58; Start 04/12/17 at 21:00; Stop 04/16/17 at 07:50; Status DC Ondansetron HCl (Zofran Inj) 4 mg Q6H PRN IV PUSH NAUSEA OR VOMITING; Start at 18:30; Stop 04/12/17 at 20:57; Status DC Famotidine (Pepcid) 20 mg BID PO Last administered on 04/13/17 20:18; Start at 21:00; Stop 04/15/17 at 07:59; Status DC Levetriacetam (Keppra) 500 mg Q12HR PO Last administered on 04/14/17at 09:56; Start 04/12/17 at 21:00; Status Future Hold Donepezil HCl (Aricept) 10 mg HS PO Last administered on 04/17/17at 21:48; Start 04/12/17 at 21:00; Status Future Hold Gabapentin (Neurontin) 400 mg TID PO Last administered on 05/04/17at 09:38; Start 04/13/17 at 09:00; Stop 05/04/17 at 12:30; Status DC Pravastatin Sodium (Pravachol) 40 mg DAILY PO Last administered on 05/05/17at 09 :19; Start 04/13/17 at 09:00 Sertraline HCl (Zoloft) 150 mg DAILY PO Last administered on 04/18/17at 09:11; Start 04/13/17 at 09:00; Status Future Hold Valsartan (Diovan) 80 mg DAILY PO Last administered on 05/05/17at 09:19; Start 04/13/17 at 09:00; Stop 05/05/17 at 18:38; Status DC Trazodone HCl (Desyrel) 100 mg HS PO Last administered on 04/13/17at 20:18; Start 04/12/17 at 21:00; Status Future Hold Tolterodine Tartrate (Detrol La) 4 mg DAILY PO Last administered on 04/18/17 09 :11; Start 04/13/17 at 09:00; Stop 04/21/17 at 14:56; Status DC Sodium Chloride 1,000 ml @ 84 mls/hr [id number] IV Last administered on 04/14/17 09:57; Start 04/12/17 at 21:00; Stop 04/14/17 at 21:28; Status DC Sodium Chloride (NS Flush) 2 ml UNSCH PRN IV FLUSH FLUSH AFTER USING IV ACCESS ; Start 04/12/17 at 20:30 Sodium Chloride (NS Flush) 2 ml BID IV FLUSH Last administered on 05/05/17 09: 20; Start 04/12/17 at 21:00 Acetaminophen (Tylenol) 650 mg Q6H PRN PO PAIN 1-5 AND/OR FEVER >101F Last administered on 04/22/17 21:00; Start 04/12/17 at 20:30; Stop 04/30/17 at 09: 43; Status DC Morphine Sulfate (Morphine Inj) 2 mg Q2H PRN IV PAIN 6-10 Last administered on 04/28/17 01:02; Start 04/12/17 at 21:00; Stop 04/29/17 at 08:12; Status DC Famotidine (Pepcid Inj) 20 mg Q12HR IV PUSH Last administered on 04/22/17 09: 00; Start 04/12/17 at 21:00; Stop 04/22/17 at 15:19; Status DC Ondansetron HCl (Zofran Inj) 4 mg Q6H PRN IV PUSH NAUSEA OR VOMITING Last administered on 04/14/17 03:35; Start 04/12/17 at 20:30 Albuterol/ Ipratropium (Duoneb Neb) 1 ampule Q6HR NEB INH Last administered on 04/16/17 03:32; Start 04/12/17 at 22:00; Stop 04/16/17 at 07:50; Status DC Albuterol/ Ipratropium (Duoneb Neb) 1 ampule Q2HR NEB PRN INH WHEEZING Last administered on 04/25/17 04:56; Start 04/12/17 at 20:30; Stop 04/30/17 at 09: 46; Status DC Miscellaneous Information 1 [id number] ; Start 04/12/17 at 20:30 Chlorhexidine Gluconate (Chlorhexidine 2% Cloth) 3 pack Taper DAILY@04 TOP ; Start 04/13/17 at 04:00; Stop 04/09/18 at 03:59 Chlorhexidine Gluconate (Chlorhexidine 2% Cloth) 3 pack UNSCH PRN TOP HYGIENIC CARE; Start 04/12/17 at 20:30 Senna/Docusate Sodium (Julia-Colace) 1 tab BID PO Last administered on at 09:20; Start 04/12/17 at 21:00 Magnesium Hydroxide (Milk Of Magnesia Liq) 30 ml Q12H PRN PO Mild constipation ; Start 04/12/17 at 20:30 Sennosides (Senokot) 17.2 mg Q12H PRN PO Moderate constipation; Start at 20:30 Bisacodyl (Dulcolax Supp) 10 mg DAILY PRN RECTAL SEVERE CONSITIPATION Last administered on 05/03/17at 09:12; Start 04/12/17 at 20:30 Lactulose (Lactulose Liq) 30 ml DAILY PRN PO SEVERE CONSITIPATION; Start 04/12 at 20:30 Dextrose (D50w (Vial) Inj) 50 ml UNSCH PRN IV PUSH HYPOGLYCEMIA-SEE COMMENTS; Start 04/12/17 at 22:00; Stop 04/15/17 at 08:33; Status DC Glucagon (Glucagon Inj) 1 mg UNSCH PRN OTHER HYPOGLYCEMIA-SEE COMMENTS; Start 04/12/17 at 22:00; Stop 04/15/17 at 08:33; Status DC Insulin Human Regular (NovoLIN R SUPPLEMENTAL SCALE) 1 ACHS SLIDING SCALE SQ Last administered on 04/13/17at 21:00; Start 04/13/17 at 08:00; Stop 04/15/17 at 08: 34; Status DC Dexmedetomidine HCl 50 ml @ 4.065 mls/ hr TITRATE PRN IV Desired RASS; Start 04/13/17 at 14:15; Stop 04/13/17 at 14:26; Status DC Dexmedetomidine HCl 200 mcg/ Sodium Chloride 50 ml @ 4.06 mls/hr TITRATE PRN IV Desired RASS; Start 04/13/17 at 14:30; Stop 04/13/17 at 16:40; Status DC Dexmedetomidine HCl 1000 mcg/ Sodium Chloride 250 ml @ 4.06 mls/hr TITRATE PRN IV Desired RASS Last administered on 04/13/17at 18:08; Start 04/13/17 at 16:45 ; Stop 04/15/17 at 07:59; Status DC Lactated Ringer's 1,000 ml @ 30 mls/hr Q24H PRN IV SEE LABEL COMMENTS; Start at 22:00; Stop 04/16/17 at 21:59; Status DC Sodium Chloride 500 ml @ 30 mls/hr [id number] PRN IV SEE LABEL COMMENTS; Start 04/13/17 at 22:00; Stop 04/16/17 at 21:59; Status DC Povidone Iodine (Betadine 5% Antisepsis Kit) 1 applic AUDIT PRACTICE INTERN PRN EACH NARE SEE LABEL COMMENTS; Start 04/13/17 at 22:00; Stop 04/16/17 at 21:59; Status DC Chlorhexidine Gluconate (Chlorhexidine 2% Cloth) 3 pack AUDIT PRACTICE INTERN PRN TOPICAL SEE LABEL COMMENTS; Start 04/13/17 at 22:00; Stop 04/16/17 at 21:59; Status DC Levetriacetam 500 mg/Sodium Chloride 105 ml @ 420 mls/hr Q12HR IV Last administered on 04/27/17at 07:44; Start 04/14/17 at 11:00; Stop 04/27/17 at 10:21 ; Status DC Hydralazine HCl (Apresoline Inj) 20 mg Q4H PRN IV PUSH SBP>160, DBP>90 Last administered on 05/02/17at 15:39; Start 04/14/17 at 12:30 Thrombin (Thrombin Top Soln) 10,000 units STK-MED ONCE .ROUTE Last administered on 04/14/17at 18:05; Start 04/14/17 at 14:49; Stop 04/14/17 at 14:50; Status DC Gelatin (Gelfoam 100 Top) 1 foam STK-MED ONCE .ROUTE Last administered on at 18:05; Start 04/14/17 at 14:49; Stop 04/14/17 at 14:50; Status DC Gentamicin Sulfate (Gentamicin Inj) 240 mg STK-MED ONCE .ROUTE ; Start 04/14/17 at 14:49; Stop 04/14/17 at 14:50; Status DC Lidocaine/ Epinephrine (Xylocaine-Epi 1%-1:100,000 Inj) 40 ml STK-MED ONCE .ROUTE Last administered on 04/14/17at 18:02; Start 04/14/17 at 14:50; Stop at 14:51; Status DC Cefazolin Sodium/ Dextrose 50 ml @ As Directed STK-MED ONCE .ROUTE Last administered on 04/14/17at 17:56; Start 04/14/17 at 17:54; Stop 04/14/17 at 17:55; Status DC Propofol 100 ml @ As Directed STK-MED ONCE .ROUTE Last administered on at 20:30; Start 04/14/17 at 20:16; Stop 04/14/17 at 20:17; Status DC Fentanyl Citrate (fentaNYL INJ) 200 mcg STK-MED ONCE .ROUTE ; Start 04/14/17 at 20:45; Stop 04/14/17 at 20:46; Status DC Morphine Sulfate (Morphine Inj) 4 mg STK-MED ONCE .ROUTE ; Start 04/14/17 at 20: 45; Stop 04/14/17 at 20:46; Status DC Miscellaneous Information ALL NURSING DEPARTME... UNSCH PRN .XX SEE LABEL COMMENTS; Start 04/14/17 at 21:00; Stop 04/15/17 at 20:59; Status DC Phenylephrine HCl (Neosynephrine Inj) 40 mg STK-MED ONCE .ROUTE Last administered on 04/14/17at 21:18; Start 04/14/17 at 21:18; Stop 04/14/17 at 21:19; Status DC Phenylephrine HCl 40 mg/Dextrose 500 ml @ 30 mls/hr TITRATE PRN IV Blood pressure management Last administered on 04/14/17at 22:00; Start 04/14/17 at 21:15 ; Stop 04/16/17 at 22:27; Status DC Terbutaline Sulfate (Brethine Inj) 1 mg UNSCH PRN SQ For Extravasation; Start 04/14/17 at 21:15; Stop 04/29/17 at 08:12; Status DC Potassium Chloride/Dextrose/ Sod Cl 1,000 ml @ 84 mls/hr [id number] IV Last administered on 04/14/17at 21:15; Start 04/14/17 at 21:15; Stop 04/15/17 at 07:59; Status DC Propofol 100 ml @ 2.454 mls/ hr TITRATE PRN IV Sedation Last administered on at 18:58; Start 04/14/17 at 22:15; Stop 04/19/17 at 08:57; Status DC Albuterol/ Ipratropium (Duoneb Neb) 1 ampule Q6HR WHILE AWAKE NEB NEB ; Start 04/15/17 at 08:00; Status UNV Albuterol/ Ipratropium (Duoneb Neb) 1 ampule Q4HR NEB PRN NEB WHEEZING; Start 04/15/17 at 08:00; Status UNV Potassium Chloride/Sodium Chloride 1,000 ml @ 42 mls/hr [id number] IV Last administered on 04/17/17at 01:28; Start 04/15/17 at 09:00; Stop 04/18/17 at 09:34; Status DC Dextrose (D50w (Vial) Inj) 50 ml UNSCH PRN IV PUSH HYPOGLYCEMIA-SEE COMMENTS; Start 04/15/17 at 08:15; Stop 04/17/17 at 11:29; Status DC Glucagon (Glucagon Inj) 1 mg UNSCH PRN OTHER HYPOGLYCEMIA-SEE COMMENTS; Start 04/15/17 at 08:15; Stop 04/17/17 at 11:29; Status DC Insulin Aspart (NovoLOG SUPPLEMENTAL SCALE) 1 ACHS SLIDING SCALE SQ ; Start 04/15/17 at 12:00; Stop 04/17/17 at 11:29; Status DC Potassium Chloride 100 ml @ 50 mls/hr Q2H PRN IV For Potassium 2.8 - 3.2 mEq/L ; Start 04/16/17 at 00:30; Stop 04/22/17 at 13:51; Status DC Potassium Chloride 100 ml @ 50 mls/hr Q2H PRN IV For Potassium 2.8 - 3.2 mEq/L ; Start 04/16/17 at 00:30; Stop 04/22/17 at 13:51; Status DC Potassium Bicarb/ Potassium Chloride (K-Lyte Cl Eff) 50 meq UNSCH PRN PO For Potassium 3.3 - 3.5 mEq/L Last administered on 04/16/17at 14:46; Start 04/16/17 at 00:30; Stop 04/22/17 at 13:51; Status DC Potassium Chloride 100 ml @ 25 mls/hr UNSCH PRN IV For Potassium 3.3 - 3.5 mEq /L Last administered on 04/21/17at 17:51; Start 04/16/17 at 00:30; Stop 04/22/17 at 13:51; Status DC Potassium Chloride 100 ml @ 50 mls/hr Q2H PRN IV For Potassium 3.3 - 3.5 mEq/L ; Start 04/16/17 at 00:30; Stop 04/22/17 at 13:51; Status DC Magnesium Sulfate 4 gm/Sodium Chloride 100 ml @ 50 mls/hr UNSCH PRN IV For Magnesium 0.9 - 1.1 mg/dL; Start 04/16/17 at 00:30; Stop 04/22/17 at 13:51; Status DC Magnesium Oxide (Mag-Ox) 800 mg UNSCH PRN PO For Magnesium 1.2 - 1.6 mg/dL; Start 04/16/17 at 00:30; Stop 04/22/17 at 13:51; Status DC Magnesium Sulfate 2 gm/Sodium Chloride 100 ml @ 50 mls/hr UNSCH PRN IV For Magnesium 1.2 - 1.6 mg/dL; Start 04/16/17 at 00:30; Stop 04/22/17 at 13:51; Status DC Potassium Phosphate (K-Phos) 2,000 mg Q4H PRN PO For Phosphorus < 2.5 mg/dL; Start 04/16/17 at 00:30; Stop 04/22/17 at 13:51; Status DC Sodium Phosphate 30 mmol/Sodium Chloride 250 ml @ 42 mls/hr UNSCH PRN IV For Phosphorus < 2.5 mg/dL Last administered on 04/19/17at 08:11; Start 04/16/17 at 00: 30; Stop 04/22/17 at 13:51; Status DC Potassium Phosphate (K-Phos) 2,000 mg UNSCH PRN PO/TUBE SEE LABEL COMMENTS Last administered on 04/17/17at 18:58; Start 04/16/17 at 00:30; Stop 04/22/17 at 13 :51; Status DC Potassium Phosphate 30 mmol/ Sodium Chloride 260 ml @ 42 mls/hr UNSCH PRN IV SEE LABEL COMMENTS Last administered on 04/16/17at 01:54; Start 04/16/17 at 00:30; Stop 04/22/17 at 13:51; Status DC Albuterol/ Ipratropium (Duoneb Neb) 1 ampule Q6HR NEB INH Last administered on 04/20/17at 03:39; Start 04/16/17 at 10:00; Stop 04/20/17 at 09:59; Status DC Fentanyl Citrate 250 ml @ 5 mls/hr TITRATE PRN IV SEDATION Last administered on 04/21/17at 16:58; Start 04/16/17 at 08:00; Stop 04/27/17 at 08:40; Status DC Potassium Chloride (KCl Powder) 40 meq ONCE ONCE PO Last administered on at 19:58; Start 04/16/17 at 19:45; Stop 04/16/17 at 19:54; Status DC Magnesium Sulfate/ Dextrose 100 ml @ 100 mls/hr Q1H IV Last administered on 04/16/17at 21:01; Start 04/16/17 at 20:00; Stop 04/16/17 at 21:59; Status DC Acetaminophen 100 ml @ 400 mls/hr ONCE ONCE IV Last administered on 04/16/17at 19:59; Start 04/16/17 at 20:00; Stop 04/16/17 at 20:14; Status DC Sodium Chloride 1,000 ml @ 999 mls/hr BOLUS ONCE IV Last administered on at 20:09; Start 04/16/17 at 20:00; Stop 04/16/17 at 21:00; Status DC Levetriacetam 100 ml @ 400 mls/hr BOLUS ONCE IV Last administered on at 20:29; Start 04/16/17 at 20:15; Stop 04/16/17 at 20:29; Status DC Phenylephrine HCl (Neosynephrine Inj) 40 mg STK-MED ONCE .ROUTE ; Start 04/16/17 at 21:44; Stop 04/16/17 at 21:45; Status DC Sodium Chloride 188 meq/Sodium Chloride 1,047 ml @ 50 mls/hr [id number] IV Last administered on 04/17/17at 01:26; Start 04/16/17 at 22:15; Stop 04/17/17 at 04:30; Status DC Thrombin (Thrombin Top Soln) 10,000 units STK-MED ONCE .ROUTE Last administered on 04/16/17at 23:59; Start 04/16/17 at 22:18; Stop 04/16/17 at 22:19; Status DC Gelatin (Gelfoam 100 Top) 1 foam STK-MED ONCE .ROUTE Last administered on at 23:59; Start 04/16/17 at 22:18; Stop 04/16/17 at 22:19; Status DC Lidocaine/ Epinephrine (Xylocaine-Epi Mpf 2%-1:200,000 Inj) 20 ml STK-MED ONCE .ROUTE Last administered on 04/16/17at 23:39; Start 04/16/17 at 22:18; Stop at 22:19; Status DC Gentamicin Sulfate (Gentamicin Inj) 240 mg STK-MED ONCE .ROUTE Last administered on 04/16/17at 23:59; Start 04/16/17 at 22:22; Stop 04/16/17 at 22:23; Status DC Phenylephrine HCl 40 mg/Sodium Chloride 500 ml @ 30 mls/hr TITRATE PRN IV Blood pressure management Last administered on 04/18/17at 03:00; Start 04/16/17 at 22:30; Stop 04/27/17 at 08:40; Status DC Cefazolin Sodium (Ancef Inj) 2,000 mg STK-MED ONCE .ROUTE Last administered on 04/16/17at 23:36; Start 04/16/17 at 23:36; Stop 04/16/17 at 23:37; Status DC Miscellaneous Information ALL NURSING DEPARTME... UNSCH PRN .XX SEE LABEL COMMENTS; Start 04/17/17 at 01:30; Stop 04/18/17 at 01:29; Status DC Sodium Chloride 500 ml @ 20 mls/hr CONTINUOUS IV Last administered on at 07:02; Start 04/17/17 at 04:30; Stop 04/19/17 at 13:38; Status DC Calcium Gluconate 1 gm/Sodium Chloride 110 ml @ 110 mls/hr ONCE ONCE IV Last administered on 04/17/17at 13:52; Start 04/17/17 at 12:00; Stop 04/17/17 at 12:59; Status DC Dextrose (D50w (Vial) Inj) 50 ml UNSCH PRN IV PUSH HYPOGLYCEMIA-SEE COMMENTS; Start 04/17/17 at 11:30; Stop 04/21/17 at 14:04; Status DC Glucagon (Glucagon Inj) 1 mg UNSCH PRN OTHER HYPOGLYCEMIA-SEE COMMENTS; Start 04/17/17 at 11:30; Stop 04/21/17 at 14:04; Status DC Insulin Aspart (NovoLOG SUPPLEMENTAL SCALE) 1 ACHS SLIDING SCALE SQ Last administered on 04/21/17at 12:00; Start 04/17/17 at 12:00; Stop 04/21/17 at 14:04; Status DC Metoprolol Tartrate (Lopressor Inj) 2.5 mg Q6H PRN IV PUSH RAPID HEART RATE Last administered on 04/20/17at 13:11; Start 04/18/17 at 09:15; Stop 04/27/17 at 08 :40; Status DC Lorazepam (Ativan Inj) 2 mg STK-MED ONCE .ROUTE Last administered on 04/18/17at 13:30; Start 04/18/17 at 13:37; Stop 04/18/17 at 13:38; Status DC Desmopressin Acetate (Ddavp Inj) 2 mcg ONCE ONCE IV PUSH Last administered on 04/19/17at 12:53; Start 04/19/17 at 08:15; Stop 04/19/17 at 08:16; Status DC Metoprolol Tartrate (Lopressor) 12.5 mg Q12HR PO Last administered on at 09:20; Start 04/19/17 at 09:00; Status Future hold Miscellaneous (Pill Splitter) 1 ea UNSCH PRN OTHER SEE LABEL COMMENTS; Start at 09:00 Sodium Chloride (Sodium Chloride) 2 gm DAILY NG ; Start 04/19/17 at 14:00; Status Future Hold Sodium Chloride 500 ml @ 999 mls/hr NOW ONCE IV Last administered on at 20:37; Start 04/19/17 at 19:15; Stop 04/19/17 at 19:45; Status DC Sodium Chloride 500 ml @ 20 mls/hr CONTINUOUS IV Last administered on at 20:30; Start 04/19/17 at 23:15; Stop 04/21/17 at 14:05; Status DC Phenylephrine HCl (Neosynephrine/ NS 1000 Mcg/10ml Syr) 1,000 mcg STK-MED ONCE IV ; Start 04/16/17 at 13:55; Stop 04/20/17 at 13:57; Status DC Vecuronium [place] (Norcuron 20 Mg Inj) 20 mg STK-MED ONCE IV ; Start 04/16/17 at 13:55; Stop 04/20/17 at 13:57; Status DC Sodium Chloride (Sodium Chloride 0.9% Inj) 20 ml STK-MED ONCE IV ; Start at 13:55; Stop 04/20/17 at 13:57; Status DC Norepinephrine Bitartrate 250 ml @ As Directed STK-MED ONCE IV Last administered on 04/20/17at 21:30; Start 04/20/17 at 21:30; Stop 04/20/17 at 21:31; Status DC Sodium Chloride 1,000 ml @ 999 mls/hr Q1H1M IV Last administered on 04/20/17at 21:30; Start 04/21/17 at 02:45; Stop 04/21/17 at 04:45; Status DC Norepinephrine Bitartrate 4 mg/ Sodium Chloride 250 ml @ 7.5 mls/hr TITRATE PRN IV Maintain MAP > 65 mmHg Last administered on 04/21/17at 22:30; Start at 02:45; Stop 04/27/17 at 08:40; Status DC Dexmedetomidine HCl (Precedex Inj) 39 mcg ONCE ONCE IV PUSH Last administered on 04/21/17at 16:29; Start 04/21/17 at 14:00; Stop 04/21/17 at 14:33; Status DC Dexmedetomidine HCl 200 mcg/ Sodium Chloride 52 ml @ 4.04 mls/hr TITRATE PRN IV SEDATION Last administered on 04/21/17at 22:04; Start 04/21/17 at 14:00; Stop at 08:40; Status DC Insulin Detemir (Levemir Inj) 15 units Q12HR SQ Last administered on 04/21/17at 22:08; Start 04/21/17 at 14:15; Stop 04/22/17 at 07:44; Status DC Insulin Aspart (NovoLOG SUPPLEMENTAL SCALE) 1 Q6HR SQ Last administered on 05/04at 12:00; Start 04/21/17 at 18:00 Dextrose (D50w (Vial) Inj) 25 ml UNSCH PRN IV HYPOGLYCEMIA-SEE COMMENTS Last administered on 04/23/17at 05:22; Start 04/21/17 at 14:15 Glucagon (Glucagon Inj) 1 mg UNSCH PRN IM/SQ HYPOGLYCEMIA-SEE COMMENTS; Start 04/21/17 at 14:15 Alteplase, Recombinant (Cathflo Activase Inj) 2 mg Q2H PRN INTRACATH occluded port Last administered on 04/22/17at 03:39; Start 04/21/17 at 14:15 Tolterodine Tartrate (Detrol La) 4 mg DAILY PO Last administered on 05/05/17at 09:19; Start 04/21/17 at 15:00 Piperacillin Sod/ Tazobactam Sod 100 ml @ 200 mls/hr Q6H IV Last administered on 04/27/17at 17:48; Start 04/21/17 at 18:00; Stop 04/27/17 at 18:00; Status DC Sodium Chloride 250 ml @ 15 mls/hr ONCE ONCE IV Last administered on at 11:38; Start 04/22/17 at 07:45; Stop 04/23/17 at 00:24; Status DC Sodium Chloride 1,000 ml @ 500 mls/hr BOLUS ONCE IV Last administered on 04/22at 07:00; Start 04/22/17 at 07:45; Stop 04/22/17 at 09:44; Status DC Sodium Chloride 1,000 ml @ 42 mls/hr [id number] IV Last administered on at 07:45; Start 04/22/17 at 07:45; Stop 04/23/17 at 08:33; Status DC Insulin Detemir (Levemir Inj) 30 units Q12HR SQ Last administered on 04/22/17at 09:00; Start 04/22/17 at 09:00; Stop 04/23/17 at 08:33; Status DC Vasopressin 40 units/Sodium Chloride 100 ml @ 6 mls/hr [id number] IV Last administered on 04/22/17at 09:10; Start 04/22/17 at 10:00; Stop 04/27/17 at 08:40 ; Status DC Famotidine (Pepcid Inj) 10 mg Q12HR IV PUSH Last administered on 04/29/17at 23: 26; Start 04/22/17 at 21:00; Stop 04/30/17 at 09:46; Status DC Etomidate (Amidate Inj) 40 mg STK-MED ONCE .ROUTE ; Start 04/23/17 at 00:02; Stop 04/23/17 at 00:03; Status DC Etomidate (Amidate Inj) 20 mg NOW ONCE IV PUSH Last administered on 04/23/17at 02:35; Start 04/23/17 at 00:45; Stop 04/23/17 at 00:46; Status DC Succinylcholine Chloride (Quelicin Inj) 50 mg NOW ONCE IV PUSH ; Start at 00:45; Stop 04/23/17 at 00:46; Status DC Insulin Detemir (Levemir Inj) 15 units Q12HR SQ Last administered on 04/23/17at 21:31; Start 04/23/17 at 09:00; Stop 04/24/17 at 17:53; Status DC Lactated Ringer's 1,000 ml @ 50 mls/hr Q20H IV Last administered on 04/24/17at 04:59; Start 04/23/17 at 09:00; Stop 04/24/17 at 17:53; Status DC Miscellaneous Information D/C ICU ELECTROLYTE ORDERS... UNSCH PRN .XX SEE DOSE INSTRUCTIONS; Start 04/23/17 at 12:00; Stop 05/03/17 at 07:36; Status DC Miscellaneous Information ICU - CALL ORDERING PHYSIC... UNSCH PRN .XX SEE DOSE INSTRUCTIONS; Start 04/23/17 at 12:00; Stop 05/03/17 at 07:36; Status DC Potassium Chloride 100 ml @ 25 mls/hr UNSCH PRN IV ELECTROLYTE REPLACEMENT Last administered on 04/24/17at 04:59; Start 04/23/17 at 12:00; Stop 05/03/17 at 07:36; Status DC Potassium Bicarb/ Potassium Chloride (K-Lyte Cl Eff) 50 meq UNSCH PRN PO ELECTROLYTE REPLACEMENT Last administered on 04/28/17at 04:45; Start 04/23/17 at 12:00; Stop 05/03/17 at 07:36; Status DC Potassium Chloride 100 ml @ 50 mls/hr UNSCH PRN IV ELECTROLYTE REPLACEMENT; Start 04/23/17 at 12:00; Stop 05/03/17 at 07:36; Status DC Magnesium Sulfate 4 gm/Sodium Chloride 108 ml @ 54 mls/hr UNSCH PRN IV ELECTROLYTE REPLACEMENT; Start 04/23/17 at 12:00; Stop 05/03/17 at 07:36; Status DC Magnesium Sulfate 2 gm/Sodium Chloride 104 ml @ 52 mls/hr UNSCH PRN IV ELECTROLYTE REPLACEMENT; Start 04/23/17 at 12:00; Stop 05/03/17 at 07:36; Status DC Magnesium Oxide (Mag-Ox) 800 mg UNSCH PRN PO ELECTROLYTE REPLACEMENT; Start 02/28 at 12:00; Stop 05/03/17 at 07:36; Status DC Sodium Phosphate 30 mmol/Sodium Chloride 260 ml @ 43.333 mls/ hr UNSCH PRN IV ELECTROLYTE REPLACEMENT; Start 04/23/17 at 12:00; Stop 05/03/17 at 07:36; Status DC Potassium Phosphate (K-Phos) 2,000 mg UNSCH PRN PO ELECTROLYTE REPLACEMENT; Start 04/23/17 at 12:00; Stop 05/03/17 at 07:36; Status DC Potassium Phosphate 30 mmol/ Sodium Chloride 260 ml @ 43.333 mls/ hr UNSCH PRN IV ELECTROLYTE REPLACEMENT; Start 04/23/17 at 12:00; Stop 05/03/17 at 07:36 ; Status DC Insulin Detemir (Levemir Inj) 20 units Q12HR SQ Last administered on 05/04/17at 20:55; Start 04/24/17 at 21:00 Sodium Chloride 38.5 meq/Sterile Water 1,009.625 ml @ 30 mls/hr Q24H IV Last administered on 04/27/17at 03:35; Start 04/24/17 at 18:00; Stop 04/27/17 at 08:40 ; Status DC Sodium Chloride 1,000 ml @ 999 mls/hr Q1H1M IV Last administered on 04/25/17at 00:01; Start 04/24/17 at 23:00; Stop 04/25/17 at 01:00; Status DC Sodium Chloride 500 ml @ 999 mls/hr Q31M ONCE IV ; Start 04/25/17 at 01:00; Stop 04/25/17 at 01:30; Status DC Desmopressin Acetate (Ddavp Inj) 2 mcg ONCE ONCE SQ Last administered on at 23:50; Start 04/24/17 at 23:00; Stop 04/24/17 at 23:01; Status DC Desmopressin Acetate (Ddavp Inj) 2 mcg Q12HR PRN IV PUSH Urine > 1600/12 hours Last administered on 04/27/17at 05:09; Start 04/25/17 at 10:30; Stop 04/27/17 at 08:42; Status DC Furosemide (Lasix Inj) 40 mg ONCE ONCE IV PUSH Last administered on 04/28/17at 08:45; Start 04/28/17 at 08:15; Stop 04/28/17 at 08:21; Status DC Potassium Chloride 100 ml @ 50 mls/hr Q2H IV Last administered on 04/28/17at 11 :00; Start 04/28/17 at 09:00; Stop 04/28/17 at 12:59; Status DC Water (Free Water) 300 ml Q4HR G-TUBE Last administered on 05/05/17at 16:33; Start 04/29/17 at 12:00 Acetaminophen (Tylenol 650 Mg/ 20 ml Liq) 650 mg Q6H PRN NG fever/pain 1 through 5; Start 04/30/17 at 09:45 Albuterol Sulfate (Albuterol Neb) 2.5 mg Q2HR NEB PRN NEB dyspnea; Start at 09:45 Famotidine (Pepcid) 20 mg BID NG Last administered on 05/03/17at 09:12; Start at 11:00; Stop 05/03/17 at 12:21; Status DC Artificial Tears (Lacrilube Opht Oint) 1 applic Q12HR EACH EYE Last administered on 05/05/17at 09:21; Start 04/30/17 at 21:00 Albuterol/ Ipratropium (Duoneb Neb) 1 ampule Q6HR NEB NEB Last administered on 05/04/17at 07:39; Start 04/30/17 at 10:00; Stop 05/04/17 at 09:59; Status DC Midazolam HCl (Versed Inj) 5 mg STK-MED ONCE .ROUTE ; Start 05/01/17 at 03:41; Stop 05/01/17 at 03:42; Status DC Fentanyl Citrate (fentaNYL INJ) 100 mcg STK-MED ONCE .ROUTE ; Start 05/01/17 at 03:41; Stop 05/01/17 at 03:42; Status DC Midazolam HCl (Versed Inj) 4 mg NOW IV Last administered on 05/01/17at 04:08; Start 05/01/17 at 03:45; Stop 05/01/17 at 04:30; Status DC Fentanyl Citrate (fentaNYL INJ) 100 mcg NOW IV Last administered on 05/01/17at 04:06; Start 05/01/17 at 03:45; Stop 05/01/17 at 04:30; Status DC Sodium Chloride 1,000 ml @ 999 mls/hr Q1H1M IV Last administered on 05/01/17at 05:51; Start 05/01/17 at 05:45; Stop 05/01/17 at 07:45; Status DC Desmopressin Acetate (Ddavp Inj) 2 mcg Q12HR PRN IV PUSH Urine > 1200ml/12 hours Last administered on 05/02/17at 18:47; Start 05/01/17 at 10:00; Stop at 07:58; Status DC Multi-Ingredient Mouthwash/Gargle (Magic Mouthwash Adult Liq) 10 ml Q6H PRN SWISH-SPIT MOUTH PAIN Last administered on 05/03/17at 09:09; Start 05/02/17 at 15 :45 Sodium Chloride 1,000 ml @ 100 mls/hr Q10H IV Last administered on 05/05/17at 16:34; Start 05/02/17 at 21:00; Stop 05/05/17 at 18:38; Status DC Desmopressin Acetate (Ddavp Inj) 2 mcg Q12H IV PUSH Last administered on at 09:19; Start 05/03/17 at 08:00; Stop 05/05/17 at 18:38; Status DC Famotidine (Pepcid) 10 mg BID NG Last administered on 05/05/17at 09:20; Start at 21:00 Ceftriaxone Sodium 1000 mg/ Sodium Chloride 100 ml @ 200 mls/hr Q12H IV Last administered on 05/05/17at 17:08; Start 05/03/17 at 18:00 Gabapentin (Neurontin) 300 mg DAILY PO Last administered on 05/05/17at 09:19; Start 05/05/17 at 09:00 Sodium Bicarbonate 0.05 meq/Sodium Chloride 1 ml @ 125 mls/hr Q1M IV ; Start at 18:45; Status UNV Family History Unobtainable from patient presently. Social History Unobtainable from patient presently. Physical Exam Vital Signs Vital Signs Date Time Temp Pulse Resp B/P (MAP) Pulse Ox O2 Delivery O2 Flow Rate FiO2 05/05/17 16:00 113 05/05/17 16:00 35 05/05/17 16:00 99.9 113 18 118/74 (89) 100 05/05/17 16:00 94 35 05/05/17 14:00 93 05/05/17 12:10 99 35 05/05/17 12:00 35 05/05/17 12:00 90 05/05/17 12:00 99.3 90 17 121/69 (86) 100 05/05/17 10:00 89 05/05/17 08:00 81 05/05/17 08:00 35 05/05/17 08:00 98.8 81 17 132/74 (93) 100 05/05/17 07:43 100 35 05/05/17 06:00 66 05/05/17 05:11 100 35 05/05/17 04:00 35 05/05/17 04:00 92 05/05/17 04:00 98.3 92 20 122/66 (84) 100 05/05/17 02:00 96 05/05/17 01:11 100 35 05/05/17 00:00 98.8 100 16 122/63 (82) 98 05/05/17 00:00 35 05/05/17 00:00 100 05/04/17 22:00 98 05/04/17 20:37 97 35 05/04/17 20:00 35 05/04/17 20:00 98.2 106 24 145/81 (102) 97 05/04/17 20:00 106 Physical Exam GENERAL: Elderly male with an ET tube in place on ventilatory support. SKIN: Warm and dry. HEAD: Normocephalic. EYES: No scleral icterus. No injection or drainage. NECK: Supple, trachea midline. No JVD or lymphadenopathy. CARDIOVASCULAR: Regular rate and rhythm without murmurs, gallops, or rubs. RESPIRATORY: Breath sounds equal bilaterally. No accessory muscle use. GASTROINTESTINAL: Abdomen soft, non-tender, nondistended. MUSCULOSKELETAL: No cyanosis, or edema. Laboratory Laboratory Tests Test 05/05/17 14:14 Blood Urea Nitrogen 101 Creatinine 6.37 Random Glucose 95 Albumin 1.5 Calcium Level 7.7 Phosphorus Level 8.3 Sodium Level 146 Potassium Level 5.7 Chloride Level 113 Carbon Dioxide Level 20.7 Anion Gap 12 Estimat Glomerular Filtration Rate 9 Date/Time Source Procedure Growth Status 04/21/17 18:53 Blood Peripheral Aerobic Blood Culture - Final NO GROWTH IN 5 DAYS Complete 04/21/17 18:53 Blood Peripheral Anaerobic Blood Culture - Final NO GROWTH IN 5 DAYS Complete 05/02/17 21:40 Sputum Endotracheal Gram Stain - Final Complete 05/02/17 21:40 Sputum Culture - Final Klebsiella Pneumoniae Complete Result Diagram: 05/04/17 0459 05/05/17 1414 Assessment and Plan Problem List: (1) Acute kidney insufficiency ICD Codes: N28.9 - Disorder of kidney and ureter, unspecified Status: Acute Plan: Etiology of the patient's acute renal insufficiency is not entirely clear. May be related to sepsis syndrome, ATN however need to exclude an obstructive uropathy. Discontinue Diovan at this time in view of acute renal insufficiency and hyperkalemia. Continue IV hydration as ordered with added sodium bicarbonate. Renal ultrasound to exclude an obstructive process. As indicated above patient may require dialytic support however the patient is deciding on how aggressive they wish to be in view of apparent poor prognosis. Medications should be adjusted for the patient's estimated GFR if clinically indicated. Avoid agents with significant potential for nephrotoxicity possible including NSAIDs for analgesia, iodine contrast agents. Gadolinium is contraindicated if the GFR is below 30. (2) Metabolic acidosis ICD Codes: E87.2 - Acidosis Status: Acute Plan: Sodium bicarbonate added to IV fluids as ordered. (3) Hyperkalemia ICD Codes: E87.5 - Hyperkalemia Status: Acute Plan: Diovan discontinued. Sodium bicarbonate added to IV fluids. Follow-up potassium level in a.m. 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 In view of this I will discontinue DDAVP for the present. Check serum and urine osmolality in a.m. (5) Subdural hematoma ICD Codes: I62.00 - Nontraumatic subdural hemorrhage, unspecified Pedro Lala MD May 05, 2017 18:51
[2017-05-05] MEDS: CHLORHEXIDINE GLUCONATE 2 % 1 PACK (2 CLOTHS) TOP SCH (19:55)
[2017-05-05] MEDS: SODIUM BICARBONATE 8.4% INJ 75 MEQ in SODIUM CHLOR 0.45% 1000 ML INJ 1,000 ML IV SCH (20:08)
--- NOTE | 2017-05-05 21:06 | RADRPT ---
EXAM DATE/TIME: 05/05/2017 20:08 [facility] COMPARISON: No previous studies available for comparison. INDICATIONS : Increased BUN/Creatinine. MEDICAL HISTORY : Chronic obstructive pulmonary disease. Hypertension. Carcinoma, prostate. Dementia. Anticoagulant the rapy. Heart murmur. Incontinence. Diabetes. Subdural hematoma. Depression. Anxiety. Radiation therapy . SURGICAL HISTORY : Left craniotomy. ENCOUNTER: Initial ACUITY: 1 day PAIN SCORE: Nonresponsive. LOCATION: Bilateral flank MEASUREMENTS: RIGHT KIDNEY: 12.4 x 5.9 x 5.7 cm LEFT KIDNEY: 13.7 x 6.6 x 5.9 cm FINDINGS: Kidneys are mildly echogenic with minimal dilatation of renal collecting system bilaterally. The sple en enlarged to almost 15 cm. Left pleural effusion. Bladder decompressed by Munoz. CONCLUSION: 1. Mild hydronephrosis. Echogenic kidneys characteristic of mild medical renal disease. Lalo Loo MD on May 05, 2017 at 21:01 Board Certified Radiologist. This report was verified electronically.
[2017-05-06] VITALS (18 sets, daily range): BP systolic 117–148; BP diastolic 64–89; PULSE 70–100; RESP 16–23; TEMP 98.2–98.7; O2SAT 96–100
[2017-05-06] MEDS: FREE WATER G-TUBE SCH ×7 (04:00→21:04)
[2017-05-06] MEDS: SODIUM BICARBONATE 8.4% INJ 75 MEQ in SODIUM CHLOR 0.45% 1000 ML INJ 1,000 ML IV SCH ×3 (04:35→21:48)
[2017-05-06] MEDS: cefTRIAXone INJ 1,000 MG in SODIUM CHLORIDE 0.9% INJ 100 ML IV SCH ×2 (05:16→17:45)
[2017-05-06] MEDS: INSULIN ASPART SUPPLEMENTAL SCALE SQ SCH ×4 (05:16→17:45)
[2017-05-06 05:55] LABS: ALBUMIN 1.6 GM/DL (3.4-5.0); BICARBONATE 19.8 MEQ/L (21.0-32.0); CALCIUM 8.1 MG/DL (8.5-10.1); CREATININE 7.09 MG/DL (0.60-1.30)
[2017-05-06 06:22] LABS: PHOSPHORUS 8.2 MG/DL (2.5-4.9)
[2017-05-06] MEDS: ARTIFICIAL TEARS OPTH OINT 3.5 APPLIC/3.5 GM TUBO EACH EYE SCH ×2 (08:20→21:00)
[2017-05-06] MEDS: SODIUM CHLORIDE 0.9% FLUSH 10 ML FLUSH IV FLUSH SCH ×2 (08:21→21:00)
[2017-05-06] MEDS: DOCUSATE SODIUM 50 MG/SENNA 8.6 MG TAB PO SCH ×2 (09:00→19:49)
[2017-05-06] MEDS ORDERED: SODIUM BICARBONATE 8.4% INJ 50 MEQ/50 ML SYR IV PUSH ONE (09:30)
--- NOTE | 2017-05-06 09:32 | HHI.CCPN ---
Subjective Remarks/Hospital Course 04/12: 71-year-old male presents for evaluation after he fell hitting his head. Per family report they were in the bathroom trying to change his undergarments when he slipped and fell hitting his head. He is not on anticoagulant. The patient is pleasantly confused and patient's daughter states this is his baseline. He has had no altered mental status since the fall. No vomiting. The patient reports a mild headache without radiation. No neck pain or back pain. He has been ambulatory without difficulty since the fall. The CT head performed in the emergency department shows bilateral subdural hematomas in addition to parafalcine subdural hematoma, left frontal and temporal lobe intraparenchymal hemorrhages and subfalcine herniation from [id number]. 04/13: Resting in bed comfortably at the time of my evaluation this morning. Confused, does not know the year. Knows he is in the hospital. Moves all 4 extremity's. Does not appear to be in any acute distress. 04/14: Afebrile. The patient continues to be confused but easily following commands notable systolic ejection murmur, echo pending. Patient scheduled for neurosurgical intervention this afternoon. 04/15: Tmax 99.3. The patient status post craniotomy with evacuation of subdural hematoma last evening, remained intubated, only on sedation with propofol infusion and requiring low-dose phenylephrine to maintain map greater than 65. Sedation was briefly lightened last evening postoperatively, and the patient was extremely agitated. IV fluids changed from D5W to normal saline with [address] brain performed. INR pending. 04/16: Tmax 99.8 Patient agitated during the night , swinging his legs out of the bed while on maximum doses of propofol infusion, fentanyl infusion low-dose added this a.m. Patient's diet advance will begin tube feeds this a.m. The patient was noted to have multifocal PVCs intermittent during the night potassium level 3.2 currently being repleted with K-Phos. 04/17: Tmax 101.6. The patient underwent emergent craniotomy for evacuation of acute recurrent left subdural hematoma last evening. The patient continues on 3 % normal saline, with serial sodium and osmole is being followed. Currently weaning slowly sedation for neuro assessment. Patient noted to have a significant elevation in WBC count of 22, blood cultures urine cultures and sputum cultures obtained. Chest x-ray now showing bilateral lung opacities edema versus possible infectious process being ruled out. Echo revealed patient has severe aortic stenosis with a roommate mean gradient of 44. The patient continues on phenylephrine for vasopressors support at this time. 04/18: Last evening, the patient went into A. fib RVR, heart rate low 100s, with self resolution. This a.m. the patient continues to have sinus rhythm/sinus tachycardia 90-105 with frequent multifocal PVCs. Electrolytes within normal limits. Given the significant medical history for severe aortic stenosis metoprolol 2.5 mg IV for rapid heart rate instituted. The patient continues on phenylephrine infusion for maintenance of a map greater than 65. Propofol is currently being weaned off. EEG revealed last night severe encephalopathy. No change in neurological status but patient still is under sedation patient withdraws to pain bilateral lower extremities and now has spontaneous eye opening intermittently. Leukocytosis notably is resolving. 04/19: Afebrile. Today afternoon the patient was noted to have a seizure, Ativan 1 mg IV push with resolution EEG ordered. Post seizure the patient was noted to have gross hematuria. Coag studies performed within normal limits, fibrinogen level slightly elevated . Creatinine kinase noted to be within normal limits. Hematuria thought to possibly be secondary to acquired von Willebrand's factor secondary to the shear stress from his severe aortic stenosis. DDAVP 2 mcgs IV 1 dose ordered this a.m.. Patient continues on 3% sodium chloride, phenylephrine has been discontinued. 04/20: Remains sedated, orally intubated on mechanical ventilation. Remains on 3 % saline. Off phenylephrine currently. Blood pressure labile. Tolerating tube feeds. 04/21: Remains sedated, orally intubated on mechanical ventilation. Stopping 3% saline. Tolerating tube feeds 04/22: Remains sedated, orally intubated on mechanical ventilation. On Levophed for pressor support. Spiking temperatures. Started on Zosyn yesterday. Continues to have hematuria. One unit PRBCs and fluid bolus ordered. 04/23: Appears to have developed ADRIANNE from osmotic diuresis associated with poorly controlled diabetes. Hyperglycemia exacerbated by dextrose containing solution. Will start constant carb feedings with glucerna, reduce levemir, add SSI coverage, and hydrate to correct fluid depletion. 04/24: Continued serum concentration associated with free water loss. No improvement in neurological function. Suspect osmotic diuresis from elevated glucose but will check urine specific gravity to rule out DI. 04/25: Osmolality improving. Continue DDAVP prn. 04/26: Alertness much improved after Na corrected. Required DDAVP X 2. Gas exchange acceptable and he is strong on CPAP trial. Right arm edematous, ultrasound with no thrombus. 04/27: Extubated > 24 hours ago and breathing comfortably. Protects airway. Electrolytes normalized. Transfer. 04/28: Tolerating extubation but respiratory rate increased, not labored. Osmolality normalized off of DDAVP. 04/29: more somnolent today, but still awake and following commands. sodium mp from 143 to 147 off DDAVP. will restart free water. ROS unobtainable due to patient's baseline mental status. 3-way contreras persists, less hematuria noted. Cr continues to improve. remains stable for transfer to floor. SUBJECTIVE: 04/30: Currently in room 1319 . Resting in sitting position bed. Currently resting in bed in no acute distress. Contreras catheter remains. 05/01: > 5 liters urine with rising BUN/Creatinine - appears to have slipped back into DI. 05/02: Daughter request Palliative Care consult to assist with decision making re continued aggressive care, trach. 05/03: Intermittent diabetes insipidus causing big problems for kidneys. Episodic diuresis unpredictable and between bouts he develops pulmonary edema. Remains very weak and unable to tolerate vent weaning trials. 05/04: Patient continues to deteriorate. He will not survive this hospitalization. 05/05: No improvement. Renal function deteriorating. 05/06: Kidneys continue to deteriorate. Family has decided to continue with aggressive care. They want us to proceed with trach, PEG, and dialysis. Terminal disease process. Objective Vital Signs Date Time Temp Pulse Resp B/P (MAP) Pulse Ox O2 Delivery O2 Flow Rate FiO2 05/06/17 08:58 100 35 05/06/17 08:00 71 05/06/17 04:00 98.2 20 136/89 (105) Intake and Output 05/06/17 05/06/17 05/07/17 08:00 16:00 00:00 Intake Total 2073 ml Output Total 125 ml Balance 1948 ml Result Diagram: 05/04/17 0459 05/06/17 0434 Imaging Last Impressions Head CT 04/27/17 0000 Signed Impressions: Service Date/Time: Thursday, April 27, 2017 11:04 - CONCLUSION: 1. Interval removal of the patient's subdural drain. There is still a small amount of subdural hemorrhage remaining along the left frontal cortex. The remainder of the hemorrhage along the parietal is no longer identified. Findings were discussed in detail above. Luis Moreno MD Chest X-Ray 04/26/17 0400 Signed Impressions: Service Date/Time: Wednesday, April 26, 2017 04:12 - CONCLUSION: No significant interval change. Zeferino Hewitt MD Upper Extremity Ultrasound 04/25/17 0000 Signed Impressions: Service Date/Time: Tuesday, April 25, 2017 11:44 - CONCLUSION: No evidence of right upper extremity DVT. David Meade MD Cervical Spine CT 04/12/17 0000 Signed Impressions: Service Date/Time: Wednesday, April 12, 2017 17:36 - CONCLUSION: Degenerative spondylosis without any significant compromise to the thecal sac or the exiting nerve roots. Maria Guadalupe Alvarado MD Objective Remarks GENERAL: 71-year-old Elderly gentleman. SKIN: Warm and dry. No rash HEAD: Atraumatic. Normocephalic. EYES: Pupils equal and round 2 mm bilaterally and reactive. No scleral icterus. No injection or drainage. ENT: No nasal bleeding or discharge. Mucous membranes pink and moist. NECK: Trachea midline. Orally intubated. CARDIOVASCULAR: Regular rate and rhythm. NL S1, S2. 2/6 systolic murmur right upper sternal border RESPIRATORY: No wheezing rales or rhonchi, good terese air movement. GASTROINTESTINAL: Abdomen soft, non-tender, nondistended, no guarding. BS active. : Contreras catheter in place MUSCULOSKELETAL: Extremities without clubbing, cyanosis. Right arm with resolving gross edema. NEUROLOGICAL: Moves 4 limbs weakly. Withdraws to pain in all 4 extremities. Otherwise largely unresponsive. Procedures 1/2-left frontoparietal craniotomy with evacuation of subacute on chronic SDH 04/17-@ 0000 emergent craniotomy with evacuation of acute recurrent left subdural hematoma A/P Assessment and Plan NEURO/PSYCH TBI -Subdural hematoma S/P Left frontoparietal craniotomy with evacuation of subacute on chronic SDH S/P Emergency revision/evacuation of acute recurrent left subdural hematoma Acute encephalopathy- resolving slowly Dementia disorder NOS Depression -Neurosurgery following. Dr. Odom - Neuro checks per protocol - Repeat CT head per neurosurgery-stable acute subdural hematoma within frontal regions, bilateral 5 mm subfalcine herniation to the right - Seizure prophylaxis with levetiracetam has been discontinued GBG discontinued 04/26 - 04/18 EEG-severe encephalopathy avoid long-acting sedating meds continue home gabapentin. 400 mg 3 times a day Trazodone 100 mg at night, sertraline 150 mg daily and donepezil 10 mg a old discontinued secondary QTc prolongation Acetaminophen 650 mg by NG every 6 hours when necessary fever No episodic DI but ADRIANNE now. RESP: COPD Acute hypoxic and hypercarbic respiratory failure - resolving. Nasal cannula to maintain saturations greater than equal to 90% Incentive spirometry while awake Albuterol/ipratropium aerosols every 6 hours with albuterol aerosols 2 hours. Dyspnea - Extubated 04/26. - aggressive pulmonary toilet with a cappella/CPAP incentive spirometry - PRVC vent mode 04/30 CV: Severe Hypotension- -resolved. Sinus tachycardia- resolved. Essential hypertension -04/14 EKG prolonged QT 475, continue close monitoring - 04/16 Echo-s Normal left ventricular size. Severe concentric left ventricular hypertrophy. The left ventricular systolic function is low normal with an estimated ejection fraction in the range of 50- 55%. Trace aortic valve regurgitation. Severe aortic valve stenosis. Moderate thickening of the aorticv alve leaflets. Aortic valve mean gradient is 44 mmHg. - Repeat color television console monitor QTc-holding benazepril and sertraline and donepezil Hold valsartan 80 mg by mouth daily for hypertension/home medication Started on metoprolol tartrate twice a day for hypertension GI: Acute protein calorie Malnutrition - severe - Continue tube feeds Glucerna 1.5 with goal 60cc/hr Famotidine 20 mg by 2 twice a day for bowel regimen Docusate sodium/senna 1 tablet twice a day for bowel regimen : Hematuria Maintain Contreras Dr. Woods has followed Neurology recommends replace Contreras catheter with a 18 [place] coud and irrigate when necessary clots (previously with a 14 [place] catheter) Continue tolterodine 4 mg by mouth daily for management of bladder spasms Holding trospium 20 mg twice a day ADRIANNE, oliguria. ENDO: Diabetes mellitus - improved control. Central Diabetes Insipidus - Hold metformin 500 mg daily/home medication - Insulin sliding scale Novulog -high dose dose regimen, 25 units sliding scale past 24 hours Currently on insulin detemir 20 units twice a day - Unable to get clear urine due to bladder bleed. - Responding well to DDAVP, now stopped 04/28. Currently on free water 300mL po q4h - daily bmp to check sodium - Hold DDAVP ID: Septic shock- resolved. Pneumonia - resolved. Bacteremia- resolved. 04/19-blood cultures-staph intermedius 04/14 sets - contaminant 04/20 - Sputum cultures with e. coli, klebisella. s/p full course of Augie/ tazobactam 04/21 - 04/27. monitor off abx for fever, signs of infection. HEME: Last CBC 04/25. Leukocytosis. Recheck in a.m. 05/01 FEN: Hypernatremia See above treatment plan Continue free water 300 cc every 4 hours. Recheck BMP in a.m. Replace electrolytes as clinically indicated MSK PT evaluate and treat DVT GI prophylaxis - Teds SCDs - No pharmacological DVT prophylaxis due to subdural hematoma - Pepcid BID Overall impression: He has deteriorated considerably over the past 10 days, requiring reintubation and is now ventilator dependent. He will not recover from this illness more than enough to perhaps make it to an LTAC. He will not survive this illness due to multiple systems failing. Roland Figueroa MD May 06, 2017 09:32
[2017-05-06] MEDS: METOPROLOL TARTRATE 25 MG TAB PO SCH ×3 (10:08→21:04)
[2017-05-06] MEDS: FAMOTIDINE 20 MG TAB NG SCH ×2 (10:08→21:04)
[2017-05-06] MEDS: GABAPENTIN 300 MG CAP PO SCH (10:09)
[2017-05-06] MEDS: TOLTERODINE TARTRATE 4 MG CAP LA PO SCH (10:10)
[2017-05-06] MEDS: PRAVASTATIN SOD 40 MG TAB PO SCH (10:15)
[2017-05-06] MEDS: INSULIN DETEMIR 100 UNITS/ML VIAL SQ SCH ×2 (10:16→21:00)
--- NOTE | 2017-05-06 12:04 | HHI.NSPN ---
(Lacho Lacey Betsey JOSEPH) History Chief Complaint: Unable to obtain due to patient's clinical condition. (Lacho Lacey GAME DESIGNER/CREATIVE DIRECTOR) Interval History 04/12: Mr. Hope is a 71-year-old male who presented to the emergency room today after he fell at home in the presence of his daughter. She states that he lost his balance while trying to put some close on, and fell and struck his head. There was no loss of consciousness. No seizure activity or nausea or emesis reported. The patient has baseline dementia and confusion, but no definite overall change in his mentation after the fall earlier today, according to his daughter, who he lives with. He presently has no complaint of headache. He does have some chronic neck and back pain. 04/13: The patient was examined in the presence of the family today and a more detailed history has been obtained. They indicate chronic progressive dementia to the point that the patient has had to move in with his daughter earlier this year. He cannot care for himself. He is usually quite confused, conversing with only a few words or short sentences and unable to stay on task with conversations. He is usually very active, fidgeting constantly. They state that his mental status today is not significantly changed from his overall baseline. He did go to the emergency room a couple of weeks ago at [facility] due to some pressure sensation or frontal headaches and was diagnosed with sinus congestion. A CT scan of the head was not obtained. He has had no definite falls over the past few weeks up until yesterday. 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 Post-operatively he returned to [facility] for further care and monitoring. 04/15: This morning the patient is obtunded and has no sedation infusing. He does withdraw to noxious stimulation. He does not open his eyes but does have facial grimacing and turns his head to noxious stimulation. ADDENDUM at 1854: Patient was sedated with propofol 50 mcg/kg/min when seen, the pump was not visible at the time. BET. 04/16: When seen the patient is obtunded but does have the propofol drip infusing. Nursing reports that he moves all extremities but does become agitated when the propofol is weaned down. He moves all extremities to noxious stimulation when seen but did not follow any commands. 04/17: The patient remains obtunded and continues to be sedated with a propofol drip. He is now on phenylephrine for blood pressure support. He does not respond to commands and only withdraws the lower extremities to noxious stimulation. He does have some facial grimacing but no eye opening to noxious stimulation. He did go emergently late last night/early this morning for a revision of the left frontoparietal craniotomy for evacuation of a recurrent left hemisphere subdural haematoma. 04/18/17: intubated, propofol just turned off, intermittent movement to ext per nursing, not opening eyes. 04/19/17: nursing reports seizures yesterday, repeat CT head stable residual SDH and 5 mm midline shift. Awaiting EEG. 04/20: Patient with right eye partially opened when seen but Nursing just stimulated patient. He remains intubated and mechanically ventilated. He withdraws to noxious stimuli to the lower extremities but not the upper. He does have facial grimacing to noxious stimulation. Nursing reports that overnight KWAME #1 had 170 mL of yellowish drainage. She also says the patient has been off sedation approximately 36 hours. 04/21: The patient was examined in the presence of the family today and a more detailed history has been obtained. They indicate chronic progressive dementia to the point that the patient has had to move in with his daughter earlier this year. He cannot care for himself. He is usually quite confused, conversing with only a few words or short sentences and unable to stay on task with conversations. He is usually very active, fidgeting constantly. They state that his mental status today is not significantly changed from his overall baseline. He did go to the emergency room a couple of weeks ago at [facility] due to some pressure sensation or frontal headaches and was diagnosed with sinus congestion. A CT scan of the head was not obtained. He has had no definite falls over the past few weeks up until yesterday. 04/23: When seen the patient did have his eyes partially opened and he opened them wider to voice. He was moving the left upper and both lower extremities to varying degrees spontaneously. It was questionable if he moved the left lower to command but did move all extremities to noxious stimulation. 04/24: It is difficult to say if the patient was asleep when seen or not. It did appear he had his eyes partially open since Nursing was in the room. He did open them briefly to my voice. He spontaneously moved the left hand some and gripped this practitioner's hand. He moved the lower extremities to command. There was no noted movement of the right upper to noxious stimulation but he did have facial grimacing. 04/25: Patient is sedated but will respond to painful stimulation. 04/26: Patient now extubated and much more alert and responsive. He is not indicating any significant pain complaints. 04/27: This morning the patient's eyes are open. He did squeeze to command with the left hand and had withdrawal of the other extremities to noxious stimulation. He has been extubated but is nonverbal. He has mild respiratory effort on a nasal cannula. 04/28: When seen this morning the patient is lethargic. He did not open his eyes to voice or follow any commands. He did have slight withdrawal of the left upper and both lower extremities to noxious stimulation. He did have facial grimacing to noxious stimulation as well. 04/29: The patient is awake this morning. He is on a nasal cannula. He squeezes with the left hand when a hand is placed in it. He moves both feet to noxious stimulation. He had no movement of the right upper extremity. 04/30: This morning the patient is sitting up in the cardiac chair with his eyes closed. There was no evident eye opening to voice. He was noted to move the left lower extremity spontaneously. He did give a slight squeeze with the left hand to command and appears to have tried to give a thumbs up when asked to. He did move the right lower extremity to noxious stimulation and there was muscle contraction noted to the right forearm to noxious stimulation. 05/01: When seen this morning the patient is intubated and on CPAP. He does not respond to any commands or open his eyes. He does spontaneously move the left upper extremity and both lower to noxious stimulation. There was no response with the right upper. Nursing reports that during the night his systolic blood pressure dropped into the 70s, his respirations were in the 30s and he was tachycardiac in the 130s. He was therefore emergently intubated. He was given three litres of intravenous fluids and his systolic blood pressure improved. 05/02: The patient is seen moving both lower extremities spontaneously. He remains intubated and mechanically ventilated. He is not on any sedation. His daughter is present and states that he did open his eyes briefly to her voice and that he was squeezing her hand. He did squeeze this practitioner's hand to command and moved both lower extremities to noxious stimulation. There was no movement of the right upper. 05/03: The patient is lethargic when seen. He does not have any sedation infusing. He remains intubated but is on CPAP. He does spontaneously move the lower extremities but is not following any commands. He did move his extremities to noxious stimulation as well as have facial grimacing. 05/04: This morning the patient is lethargic when seen. He continues to be intubated and is now mechanically ventilated. He does squeeze twice with the left hand and moves all extremities to noxious stimulation. He is not on any sedation. 05/05: When seen the patient is lethargic. He remains intubated and on PCV settings. He opened his eyes to voice. There was some questionable movement of the feet to command but he did withdraw the lower extremities to noxious stimulation. He didn't follow commands with the left upper but did have some movement with noxious stimulation. 05/06: The patient is seen moving both lower extremities spontaneously this morning. He does not appear to follow commands but has a strong withdrawal response with the lower extremities to noxious stimulation. The left upper response is weak. No response with the right upper. Nursing reports that Palliative Care spoke with the family and they want to continue aggressive care measures at present to include dialysis. (Lacho Lacey) System Review Comments Unable to obtain due to patient's clinical condition. (Lacho Lacey) Exam Results 05/04/17 05/04/17 05/05/17 05/05/17 05/06/17 05/06/17 06:00 18:00 06:00 18:00 06:00 18:00 Intake Total 2597 ml 1315 ml 3861 ml 2559 ml 2073 ml Output Total 875 ml 0 ml 500 ml 50 ml 125 ml Balance 1722 ml 1315 ml 3361 ml 2509 ml 1948 ml IV Total 1100 ml 3043 ml 1000 ml 1040 ml Tube Feeding 597 ml 715 ml 518 ml 659 ml 533 ml Tube Irrigant 600 ml Other 900 ml 300 ml 900 ml 500 ml Output Urine Total 875 ml 500 ml 50 ml 125 ml Stool Total 0 ml Tube Feeding Residual Discard 0 ml # Bowel Movements 1 1 1 3 Vital Signs Date Time Temp Pulse Resp B/P (MAP) Pulse Ox O2 Delivery O2 Flow Rate FiO2 05/06/17 11:17 100 35 05/06/17 10:00 77 05/06/17 08:58 100 35 05/06/17 08:00 71 05/06/17 08:00 98.7 70 16 117/71 (86) 100 05/06/17 08:00 35 05/06/17 06:00 100 05/06/17 04:08 98 35 05/06/17 04:00 35 05/06/17 04:00 94 05/06/17 04:00 98.2 94 20 136/89 (105) 98 05/06/17 02:00 76 05/06/17 00:45 96 35 05/06/17 00:00 35 05/06/17 00:00 98.2 100 23 148/82 (104) 97 05/06/17 00:00 100 05/05/17 22:00 88 05/05/17 20:43 100 35 05/05/17 20:00 88 05/05/17 20:00 35 05/05/17 20:00 98.2 88 16 125/60 (81) 99 05/05/17 18:00 112 05/05/17 16:00 113 05/05/17 16:00 35 05/05/17 16:00 99.9 113 18 118/74 (89) 100 05/05/17 16:00 94 35 05/05/17 14:00 93 05/05/17 12:10 99 35 05/05/17 12:00 35 05/05/17 12:00 90 05/05/17 12:00 99.3 90 17 121/69 (86) 100 05/05/17 10:00 89 05/05/17 08:00 81 05/05/17 08:00 35 05/05/17 08:00 98.8 81 17 132/74 (93) 100 05/05/17 07:43 100 35 05/05/17 06:00 66 05/05/17 05:11 100 35 05/05/17 04:00 35 05/05/17 04:00 92 05/05/17 04:00 98.3 92 20 122/66 (84) 100 05/05/17 02:00 96 05/05/17 01:11 100 35 05/05/17 00:00 98.8 100 16 122/63 (82) 98 05/05/17 00:00 35 05/05/17 00:00 100 05/04/17 22:00 98 05/04/17 20:37 97 35 05/04/17 20:00 35 05/04/17 20:00 98.2 106 24 145/81 (102) 97 05/04/17 20:00 106 05/04/17 16:00 35 05/04/17 16:00 98.4 106 20 139/69 (92) 100 05/04/17 15:25 99 35 05/04/17 12:00 35 05/04/17 12:00 97.8 95 17 141/68 (92) 98 05/04/17 11:10 97 35 05/04/17 09:45 35 05/04/17 08:16 35 05/04/17 08:16 35 05/04/17 08:00 35 05/04/17 08:00 99.4 100 16 141/74 (96) 96 05/04/17 07:40 98 35 05/04/17 06:00 76 05/04/17 04:01 97 35 05/04/17 04:00 35 05/04/17 04:00 99.1 102 18 142/76 (98) 98 05/04/17 04:00 102 05/04/17 02:00 100 05/04/17 00:30 98 35 05/04/17 00:00 35 05/04/17 00:00 99.7 102 17 130/70 (90) 98 05/04/17 00:00 102 05/03/17 22:00 100 05/03/17 20:11 98 35 05/03/17 20:00 100.2 106 20 133/68 (89) 100 05/03/17 20:00 108 05/03/17 20:00 35 1/21/18 18:00 116 05/03/17 16:00 100.5 96 21 151/66 (94) 99 05/03/17 16:00 35 05/03/17 16:00 96 05/03/17 14:08 100 35 05/03/17 14:00 108 05/03/17 12:00 98.6 96 18 129/59 (82) 96 05/03/17 12:00 35 05/03/17 12:00 96 (Lacho Lacey) Physical Examination GENERAL: Lethargic, no sedation infusing, no apparent distress. Intubated and mechanically ventilated. HEENT: Left craniotomy surgical incision well approximated, some crusting still present, no evident drainage, erythema or streaking. PERRLA 3mm. Orally intubated. NGT left nare. Erosion of the philtrum. MUSCULOSKELETAL: No clubbing or deformity evident. Moving BLE spontaneously & LUE to noxious stimulation. NEUROLOGICAL: Lethargic, w/o any sedation infusing. No eye opening to voice. Nonverbal, intubated. Facial grimacing to noxious stimulation. Moving BLE spontaneously & w/strong withdrawal to local noxious stimulation. Moves LUE to local noxious stimulation but none to the RUE. (Lacho Lacey) Lab, Micro, Other Results Recent Impressions Renal Ultrasound 05/05/17 0000 Signed Impressions: Service Date/Time: Friday, May 05, 2017 20:08 - CONCLUSION: 1. Mild hydronephrosis. Echogenic kidneys characteristic of mild medical renal disease. Lalo Loo MD Laboratory Tests Test 05/04/17 04:59 05/05/17 14:14 05/05/17 21:43 05/06/17 04:34 White Blood Count 14.3 TH/MM3 Red Blood Count 3.51 MIL/MM3 Hemoglobin 9.9 GM/DL Hematocrit 29.9 % Mean Corpuscular Volume 85.1 FL Mean Corpuscular Hemoglobin 28.2 PG Mean Corpuscular Hemoglobin Concent 33.2 % Red Cell Distribution Width 16.3 % Platelet Count 426 TH/MM3 Mean Platelet Volume 7.8 FL Neutrophils (%) (Auto) 91.2 % Lymphocytes (%) (Auto) 2.5 % Monocytes (%) (Auto) 5.5 % Eosinophils (%) (Auto) 0.5 % Basophils (%) (Auto) 0.3 % Neutrophils # (Auto) 13.1 TH/MM3 Lymphocytes # (Auto) 0.4 TH/MM3 Monocytes # (Auto) 0.8 TH/MM3 Eosinophils # (Auto) 0.1 TH/MM3 Basophils # (Auto) 0.0 TH/MM3 CBC Comment DIFF FINAL Differential Comment Blood Urea Nitrogen 73 MG/DL 101 MG/DL 109 MG/DL Creatinine 4.28 MG/DL 6.37 MG/DL 7.09 MG/DL Random Glucose 174 MG/DL 95 MG/DL 205 MG/DL Calcium Level 8.1 MG/DL 7.7 MG/DL 8.1 MG/DL Sodium Level 144 MEQ/L 146 MEQ/L 140 MEQ/L Potassium Level 4.5 MEQ/L 5.7 MEQ/L 5.7 MEQ/L Chloride Level 112 MEQ/L 113 MEQ/L 106 MEQ/L Carbon Dioxide Level 23.7 MEQ/L 20.7 MEQ/L 19.8 MEQ/L Anion Gap 8 MEQ/L 12 MEQ/L 14 MEQ/L Estimat Glomerular Filtration Rate 14 ML/MIN 9 ML/MIN 8 ML/MIN Prealbumin 10 MG/DL Free Thyroxine 1.08 NG/DL Thyroid Stimulating Hormone 3rd Gen 2.050 uIU/ML Albumin 1.5 GM/DL 1.6 GM/DL Phosphorus Level 8.3 MG/DL 8.2 MG/DL Urine Eosinophils NONE SEEN /HPF Urine Random Sodium 144 MEQ/L Serum Osmolality 349 MOSM/KG (Lacho Lacey) Medical Decision Making Impression and Plan Impression: 1. 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 Dementia 4. Cardiac murmur Patient lethargic, moves BLE & LUE extremities to noxious stimulation, and moving BLE spontaneously. T max 99.9 yesterday afternoon. Reviewed labs for today. Sodium 140. Hyperkalemia. Interval worsening in renal function. Sputum culture w/Klebsiella pneumoniae on final . CT brain demonstrated improvement in the left frontal subdural haematoma and chronic hygromas, no haemorrhage or mass effect. EEG consistent w/severe encephalopathy. KWAME #1 was removed . KWAME #2 removed . POD #22 () s/p: Left frontoparietal craniotomy for evacuation of subacute on chronic subdural hematoma Postoperative Diagnosis: (1) Subdural hematoma, chronic (2) Acute subdural hematoma 1. Left hemisphere subacute on chronic subdural hematoma 2. Acute right frontal subdural hematoma POD #19 () s/p: Revision left frontoparietal craniotomy evacuation of recurrent left hemisphere subdural hematoma Postoperative Diagnosis: (1) Acute subdural hematoma Recurrent left hemisphere subdural hematoma Plan: Primary management per Therapist Speech. Neuro checks. Repeat CT brain for any decline in neuro status. Mechanical DVT prophylaxis. Hold pharmacologic DVT prophylaxis. Stress ulcer prophylaxis. (Lacho Lacey) Attending Statement The exam, history, and the medical decision-making described in the above note were completed with the assistance of the mid-level provider. I reviewed and agree with the findings presented. I attest that I had a [id number] encounter with the patient on the same day, and personally performed and documented my assessment and findings in the medical record. On my examination today, the patient continues to have relief I opening to deep pain. He focuses briefly with his eyes, grasped his left hand briefly, possibly to command. I discussed the patient's prognosis with palliative care today. There is no realistic chance that he will regain any degree of independent function. Ongoing discussions with family regarding treatment plan. (Sylvester Odom MD) Lacho Lacey May 06, 2017 12:04 Sylvester Odom MD May 06, 2017 21:29
--- NOTE | 2017-05-06 12:04 | HHI.HCPN ---
Reason for visit a. To assist with evaluation and management of symptoms including: dyspnea, pain, encephalopathy b. To assist medical decision maker(s) with: better understanding of current medical conditions; weighing benefits/burdens of medical treatment options; making medical treatment decisions. . . Subjective/Interval History No significant change overnight. Patient remains intubated, mechanically ventilated, tube fed, restrained in the SICU. Patient Is awake, but unable to answer questions. Appears comfortable at rest but grimaces and withdraws to movement. Nursing pain level scores are #1-4. Not receiving any analgesics or sedating meds at this time. I spoke in person with Dr. Figueroa who feels prognosis is extremely poor . It appears now that ongoing aggressive care will require tracheostomy, PEG placement, and likely dialysis. Even with this , patient would remain at high risk of hosptial . I spoke via phone with Dr. Odom. Dr. Odom has noted some neurological improvement since the craniotomy. Howevetr, he feels the best case scenario neurologically, should patient be able to survive the hospitalization, would be that the patient is mostly bed/chair bound in a [facility] setting, dependent for ADLs, possibly able to recognize loved ones. Both Dr. Figueroa and Dr. Odom would support a family decision to forego further aggressive care and transition to "comfort measures only" under the circumstances should the family agree to that plan of care. . . . Family/friend interactions OPAL Ray had multiple phone conversations with each of the 4 children last night (see her palliative care f/u note of 05/05/17) I spoke for 40 minutes with all children together in a conference call this AM EMIL Carson also participated. The children had clearly spoken with one another. Whereas yesterday, some had indicated that the patient would not want ongoing aggressive care, today, all were agreeing that patient would want everything done at this point in time including trach/PEG/Dialysis/ and resuscitation attempts. I reviewed the patient's status in detail. We discussed the multiple medical problems complicating the patient's hospital course. We discussed the "best case scenario" described by Dr. Odom should the patient be gemma enough to survive the hospitalization. I described the patient's grimacing with movement. We discussed the needed procedures should aggressive care be desired. Sons feel strongly that since the patient underwent the surgery, everything should be done to keep him alive until we know the max return of neuro function he is capable of. Daughters agree. Cheryl Ramirez also asked if the family was willing to name a spokesperson who could give us consents without having to call everyone and who could speak for other family members at other decision points. Family has agreed to allow the daughter living closest -- Maggy-- to serve in that role. . Advance Directives Living Will: Copy in medical record Durable Power of Blindstitch Machine Operator: Copy in medical record (does not include health care decisions. ) Advance Directive Specifics Date completed: 12/16/16 . Health Care Surrogate(s): Patient is not capacitated to make his own health care decisions, will not regain capacity given underlying dementia. Has Living will and POA, neither include designation of healthcare surrogate. Contacted his field service specialist who reports HCS was never designated. . According to [place] statues, health care proxy decision-making falls to the majority of patient's 4 adult children. . Documented care wishes: Standard living will. . Significant change in goals: In phone conversation (conference call) of 05/06, including all 4 children, there was unanimous agreement that all aggressive care should be continued to prolong the patients life to see the extent of neuro improvement he was capable of. Family is willing to have patient undergo trach/ PEG / Dialysis / and cardio-pulmonary resuscitation to further those goals. . Objective Vital Signs Date Time Temp Pulse Resp B/P (MAP) Pulse Ox O2 Delivery O2 Flow Rate FiO2 05/06/17 11:17 100 35 05/06/17 08:58 100 35 05/06/17 08:00 71 05/06/17 08:00 35 05/06/17 06:00 100 05/06/17 04:08 98 35 05/06/17 04:00 35 05/06/17 04:00 94 05/06/17 04:00 98.2 94 20 136/89 (105) 98 05/06/17 02:00 76 05/06/17 00:45 96 35 05/06/17 00:00 35 05/06/17 00:00 98.2 100 23 148/82 (104) 97 05/06/17 00:00 100 05/05/17 22:00 88 05/05/17 20:43 100 35 05/05/17 20:00 88 05/05/17 20:00 35 05/05/17 20:00 98.2 88 16 125/60 (81) 99 05/05/17 18:00 112 05/05/17 16:00 113 05/05/17 16:00 35 05/05/17 16:00 99.9 113 18 118/74 (89) 100 05/05/17 16:00 94 35 05/05/17 14:00 93 05/05/17 12:10 99 35 05/05/17 12:00 35 05/05/17 12:00 90 05/05/17 12:00 99.3 90 17 121/69 (86) 100 Intake & Output 05/06/17 05/06/17 07:00 19:00 Intake Total 2073 ml Output Total 125 ml Balance 1948 ml IV Total 1040 ml Tube Feeding 533 ml Other 500 ml Output Urine Total 125 ml # Bowel Movements 3 . Physical Exam CONSTITUTIONAL/GENERAL: This is an elderly, frail, critically ill patient, off sedation on mechanical ventilation. Unable follow commands or indicate yes/no to questions. Grimaces with any movement. TUBES/LINES/DRAINS: NG tube , ETT, PIV bilateral, wrist restraints, Munoz, SCD' s. SKIN: No jaundice, rashes, or lesions. Ecchymoses on upper extremities. No wounds seen anteriorly. Skin temperature appropriate. Not diaphoretic. HEAD: craniotomy surgical incision healing. ENT: unable to assess hearing given current condition. NG tube. Oral ulcers noted. CARDIOVASCULAR: Regular rate and rhythm, systolic murmur noted right sternal border. RESPIRATORY/CHEST: lungs clear to auscultation. GASTROINTESTINAL: Abdomen soft, nondistended. Bowel sounds present. GENITOURINARY: Without palpable bladder distension. Munoz catheter in place. MUSCULOSKELETAL: Extremities with edema. No mottling or clubbing. NEUROLOGICAL: Opens eyes intermittently. Does not follow commands. Withdraws to stimuli PSYCHIATRIC: Unable to assess due to level of responsiveness. . . Diagnostic Tests Laboratory Laboratory Tests Test 05/04/17 04:59 05/05/17 14:14 05/05/17 21:43 05/06/17 04:34 White Blood Count 14.3 TH/MM3 (4.0-11.0) Red Blood Count 3.51 MIL/MM3 (4.50-5.90) Hemoglobin 9.9 GM/DL (13.0-17.0) Hematocrit 29.9 % (39.0-51.0) Mean Corpuscular Volume 85.1 FL (80.0-100.0) Mean Corpuscular Hemoglobin 28.2 PG (27.0-34.0) Mean Corpuscular Hemoglobin Concent 33.2 % (32.0-36.0) Red Cell Distribution Width 16.3 % (11.6-17.2) Platelet Count 426 TH/MM3 (150-450) Mean Platelet Volume 7.8 FL (7.0-11.0) Neutrophils (%) (Auto) 91.2 % (16.0-70.0) Lymphocytes (%) (Auto) 2.5 % (9.0-44.0) Monocytes (%) (Auto) 5.5 % (0.0-8.0) Eosinophils (%) (Auto) 0.5 % (0.0-4.0) Basophils (%) (Auto) 0.3 % (0.0-2.0) Neutrophils # (Auto) 13.1 TH/MM3 (1.8-7.7) Lymphocytes # (Auto) 0.4 TH/MM3 (1.0-4.8) Monocytes # (Auto) 0.8 TH/MM3 (0-0.9) Eosinophils # (Auto) 0.1 TH/MM3 (0-0.4) Basophils # (Auto) 0.0 TH/MM3 (0-0.2) CBC Comment DIFF FINAL Differential Comment Blood Urea Nitrogen 73 MG/DL (7-18) 101 MG/DL (7-18) 109 MG/DL (7-18) Creatinine 4.28 MG/DL (0.60-1.30) 6.37 MG/DL (0.60-1.30) 7.09 MG/DL (0.60-1.30) Random Glucose 174 MG/DL (74-106) 95 MG/DL (74-106) 205 MG/DL (74-106) Calcium Level 8.1 MG/DL (8.5-10.1) 7.7 MG/DL (8.5-10.1) 8.1 MG/DL (8.5-10.1) Sodium Level 144 MEQ/L (136-145) 146 MEQ/L (136-145) 140 MEQ/L (136-145) Potassium Level 4.5 MEQ/L (3.5-5.1) 5.7 MEQ/L (3.5-5.1) 5.7 MEQ/L (3.5-5.1) Chloride Level 112 MEQ/L (98-107) 113 MEQ/L (98-107) 106 MEQ/L (98-107) Carbon Dioxide Level 23.7 MEQ/L (21.0-32.0) 20.7 MEQ/L (21.0-32.0) 19.8 MEQ/L (21.0-32.0) Anion Gap 8 MEQ/L (5-15) 12 MEQ/L (5-15) 14 MEQ/L (5-15) Estimat Glomerular Filtration Rate 14 ML/MIN (>89) 9 ML/MIN (>89) 8 ML/MIN (>89) Prealbumin 10 MG/DL (20-40) Free Thyroxine 1.08 NG/DL (0.76-1.46) Thyroid Stimulating Hormone 3rd Gen 2.050 uIU/ML (0.358-3.740) Albumin 1.5 GM/DL (3.4-5.0) 1.6 GM/DL (3.4-5.0) Phosphorus Level 8.3 MG/DL (2.5-4.9) 8.2 MG/DL (2.5-4.9) Urine Eosinophils NONE SEEN /HPF (NONE SEEN) Urine Random Sodium 144 MEQ/L Serum Osmolality 349 MOSM/KG (275-295) . Result Diagram: 05/04/17 0459 05/06/17 0434 Microbiology Microbiology Date/Time Source Procedure Growth Status 04/21/17 18:53 Blood Peripheral Aerobic Blood Culture - Final NO GROWTH IN 5 DAYS Complete 04/21/17 18:53 Blood Peripheral Anaerobic Blood Culture - Final NO GROWTH IN 5 DAYS Complete 05/02/17 21:40 Sputum Endotracheal Gram Stain - Final Complete 05/02/17 21:40 Sputum Culture - Final Klebsiella Pneumoniae Complete . Imaging Last Impressions Renal Ultrasound 05/05/17 0000 Signed Impressions: Service Date/Time: Friday, May 05, 2017 20:08 - CONCLUSION: 1. Mild hydronephrosis. Echogenic kidneys characteristic of mild medical renal disease. Lalo Loo MD Head CT 05/01/17 0927 Signed Impressions: Service Date/Time: Monday, May 01, 2017 11:52 - CONCLUSION: 1. Mild interval improvement in left subdural hematoma. 2. 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 3. No new hemorrhage or mass effect. Simon Haley MD Chest X-Ray 05/01/17 0000 Signed Impressions: Service Date/Time: Monday, May 01, 2017 04:41 - CONCLUSION: 1. Stable ETT and NGT. 2. Stable minimal bibasilar airspace disease, likely atelectasis. 3. No significant interval change. Thierry Barros MD Upper Extremity Ultrasound 04/25/17 0000 Signed Impressions: Service Date/Time: Tuesday, April 25, 2017 11:44 - CONCLUSION: No evidence of right upper extremity DVT. David Meade MD Cervical Spine CT 04/12/17 0000 Signed Impressions: Service Date/Time: Wednesday, April 12, 2017 17:36 - CONCLUSION: Degenerative spondylosis without any significant compromise to the thecal sac or the exiting nerve roots. Maria Guadalupe Alvarado MD . Procedures * 05/01/17 - reintubated * 04/26/17 - extubated * 04/19/17 - right subclavian central line placed * 04/17/17 - revision of left frontoparietal craniotomy evacuation of recurrent left hemisphere subdural hematoma notes indicate findings of moderate densely clotted acute recurrent left hemisphere subdural hematoma primarily in the frontal region. 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 . Assessment and Plan Disease Oriented Problem List: (1) Intracranial hemorrhage (2) Pneumonia (3) Aortic stenosis Comment: Echocardiogram describes this as "severe" aortic stenosis. . (4) Hypoalbuminemia (5) Dementia (6) Acute kidney injury Comment: Worsening. Nephrology involved. Appears patient will likley need dialysis. Cause of the kidney injury unclear -- obstruction? sepsis? . (7) Anemia Symptom Scale: (1) Pain 0-10 Scale: Unable to quantify Comment: No known prior pain syndromes. Patient unable to quantify or qualify pain. Furrowed brow/grimacing, appears painful to minimal stimulation, likely secondary to recent surgeries, confusion, tubes, oral ulcerations, peripheral neuropathy, general debility and bedbound status. . (2) Encephalopathy 0-10 Scale: Unable to quantify Comment: likely to underlying dementia, subdural hematomas, surgery, worsening renal function. . (3) Dyspnea 0-10 Scale: Unable to quantify Comment: Remains on mechanical ventilation Pertinent Non-Medical Issues Psychosocial: . Has 4 adult children (Maggy, Magalie, Dale and Hua). Lives with daughter Maggy in [place]. Spiritual: unknown. Legal: : Patient is not capacitated to make his own health care decisions, will not regain capacity given underlying dementia. Has Living will and POA, neither include designation of healthcare surrogate. Contacted his field service specialist who reports HCS was never designated. . According to [place] statues, health care proxy decision-making falls to the majority of patient's 4 adult children. Ethical issues impacting care: no known concerns at this time. . Important Contacts * Maggy Saleh, daughter: [phone] lives with patient in [place] * Magalie Best, daughter: [phone] lives in [place] * Dale, son: lives in [place]: [phone] * Hua, son: lives in [place]: [phone] . Prognosis Mr. Hope is a 71-year-old male with multiple medical comorbidities including COPD, dementia, diabetes, severe aortic stenosis. He has had ongoing trajectory of decline in the months leading up to hospitalization, admitted with bilateral subdural hematoma's, parafalcine subdural hematoma, left frontal and temporal lobe intraparenchymal hemorrhages status post surgery without evidence of neurologic improvement. Unable to be weaned from mechanical ventilation, worsening renal function and pneumonia. Low albumin. Patient is at high risk of hospital . Should he survive the hospital , will likely be bed/chair bound in [facility] setting dependent for all ADLs. Patient would be a candidate for hospice care at such time that legal decision makers feel the patient would want to transition to "comfort measures only." . Code Status: Full Code Plan ==Decision Maker: Patient is not capacitated to make his own health care decisions, will not regain capacity given underlying dementia. Has Living will and POA, neither include designation of healthcare surrogate. Contacted his field service specialist who reports HCS was never designated. . According to [place] statues, health care proxy decision-making falls to the majority of patient's 4 adult children. Though all 4 children want to participate and are equal decision makers, they have opted to have daughter Maggy Saleh ([phone] ) serve as the spokesperson and "consent-signer" for them. ==FULL CODE ==Goals of medical treatment: Per family conference call of 05/06/17 all children agree that in spite of current condition and minimal chance of meaningful recovery the patient would want ongoing aggressive care including trach/PEG/dialysis/ and resuscitation attempts. ==Case discussed today with Dr. Parr (see above). ==SYMPTOMS: * Pain: Furrowed brow, appears painful to minimal stimulation, likely secondary to recent surgeries, confusion, tube, oral ulcerations, peripheral neuropathy, general debility and bedbound status. On gabapentin. Sedating analgesics being avoided to better monitor neuro function. Recommend scheduled acetaminophen. * Dyspnea: Patient with underlying copd and now with pneumonia. Dyspnea currently being managed with mechanical ventilation, nebs. No further recommendations at this time. * Encephalopathy: likely to underlying dementia complicated by subdural hematomas, surgery, worsening renal function. No new medication recommendations at this time. ==Palliative care will continue to follow throughout hospital course to assist with symptom management and clarification of goals as needed. . Time Spent Total Floor Time (mins): 90 (Total floor time included chart review, patient exam, above referenced discussions with Balwinder Figueroa/Lei; family conference, collaboration with primary nurse; and documentation.) Face to Face Time (mins): 10 >50% Counseling/Coord of Care: Yes Attestation To help prompt me to consider important information that might be impacting today's encounter and assessment, information from prior notes written by myself or my colleagues may have been "brought forward" into today's note. My signature on this note, however, is an attestation that I personally performed the exam, history, and/or decision-making noted today, and, unless otherwise indicated, the interactions with patient, family, and staff as well as the review of records all occurred today. I also attest that the listed assessment and stated plan reflect my best clinical judgment today based on the combination of historical information, prior notes, and today's exam/ interactions. When time spent is documented, it refers only to time spent today by the signer, or if indicated, combined time spent today by collaborating physician/nurse practitioner. . Aden Clayton MD May 06, 2017 12:04
[2017-05-06] MEDS ORDERED: SODIUM CHLOR 0.9% 1000 ML INJ 1,000 ML IV PRN (15:20)
[2017-05-06] MEDS ORDERED: SODIUM CHLOR 0.9% 1000 ML INJ 1,000 ML OTHER PRN ×2 (15:20)
[2017-05-06] MEDS ORDERED: cloNIDine HCL 0.1 MG TAB PO PRN (15:30)
[2017-05-06] MEDS ORDERED: ONDANSETRON HCL 4 MG/2 ML VIAL IV PUSH PRN (15:30)
[2017-05-06] MEDS ORDERED: diphenhydrAMINE HCL 25 MG CAP PO PRN (15:30)
[2017-05-06] MEDS ORDERED: ALBUMIN 25% INJ 100 ML IV PRN (15:30)
[2017-05-06] MEDS ORDERED: SODIUM CHLORIDE 0.9% FLUSH 10 ML FLUSH IV FLUSH PRN (15:30)
[2017-05-06] MEDS ORDERED: ACETAMINOPHEN 325 MG TAB PO PRN (15:30)
[2017-05-06] MEDS ORDERED: NITROGLYCERIN 0.4 MG SL 25 TABS/BTL SL PRN (15:30)
[2017-05-06] MEDS ORDERED: MANNITOL 12.5 GM/50 ML VIAL IV PRN (15:30)
[2017-05-06] MEDS ORDERED: GELATIN 12 MM/7 MM FOAM TOP PRN (15:30)
--- NOTE | 2017-05-06 15:35 | HHI.NPPN ---
Subjective History of Present Illness This patient is a 71-year-old male who unfortunately cannot provide any history at this time secondary to change in mental status and he is intubated on ventilatory support currently. Apparently the patient sustained a head injury and was admitted to this institution on April 12, 2017. Imaging studies reveal bilateral subdural hematoma. Patient also said to have a history of dementia, diabetes mellitus as well as COPD. His creatinine level was noted to have been 1.08 on May 02, 2016 subsequently deteriorating progressively thereafter it will level of 6.37 today with a potassium of 5.7. Patient also felt to have diabetes insipidus and has been receiving DDAVP. More recently however the patient has become oliguric. Critical care believes that the patient has a poor prognosis and family has been communicating with palliative care with considerations for a DNR CODE STATUS and possible hospice. No decision has been made as yet regarding dialytic support. Interval History The patient remains intubated. UOP minimal. Renal functions continue to deteriorate. Discussed with the patient's daughter, Maggy, who has been deemed POA. Family has decided for continued aggressive care (Stacie Amado) Review of Systems General General Remarks Unable to obtain (Stacie Amado) Objective Data Data Vital Signs Date Time Temp Pulse Resp B/P (MAP) Pulse Ox O2 Delivery O2 Flow Rate FiO2 05/06/17 12:00 98.4 88 16 133/74 (93) 100 05/06/17 12:00 88 05/06/17 12:00 35 05/06/17 11:17 100 35 05/06/17 10:00 77 05/06/17 08:58 100 35 05/06/17 08:00 71 05/06/17 08:00 98.7 70 16 117/71 (86) 100 05/06/17 08:00 35 05/06/17 06:00 100 05/06/17 04:08 98 35 05/06/17 04:00 35 05/06/17 04:00 94 05/06/17 04:00 98.2 94 20 136/89 (105) 98 05/06/17 02:00 76 05/06/17 00:45 96 35 05/06/17 00:00 35 05/06/17 00:00 98.2 100 23 148/82 (104) 97 05/06/17 00:00 100 05/05/17 22:00 88 05/05/17 20:43 100 35 05/05/17 20:00 88 05/05/17 20:00 35 05/05/17 20:00 98.2 88 16 125/60 (81) 99 05/05/17 18:00 112 05/05/17 16:00 113 05/05/17 16:00 35 05/05/17 16:00 99.9 113 18 118/74 (89) 100 05/05/17 16:00 94 35 (Stacie Amado) -: 05/04/17 0459 05/06/17 0434 Imaging Last Impressions Renal Ultrasound 05/05/17 0000 Signed Impressions: Service Date/Time: Friday, May 05, 2017 20:08 - CONCLUSION: 1. Mild hydronephrosis. Echogenic kidneys characteristic of mild medical renal disease. Lalo Loo MD Head CT 05/01/17 0927 Signed Impressions: Service Date/Time: Monday, May 01, 2017 11:52 - CONCLUSION: 1. Mild interval improvement in left subdural hematoma. 2. 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 3. No new hemorrhage or mass effect. Simon Haley MD Chest X-Ray 05/01/17 0000 Signed Impressions: Service Date/Time: Monday, May 01, 2017 04:41 - CONCLUSION: 1. Stable ETT and NGT. 2. Stable minimal bibasilar airspace disease, likely atelectasis. 3. No significant interval change. Thierry Barros MD Upper Extremity Ultrasound 04/25/17 0000 Signed Impressions: Service Date/Time: Tuesday, April 25, 2017 11:44 - CONCLUSION: No evidence of right upper extremity DVT. David Meade MD Cervical Spine CT 04/12/17 0000 Signed Impressions: Service Date/Time: Wednesday, April 12, 2017 17:36 - CONCLUSION: Degenerative spondylosis without any significant compromise to the thecal sac or the exiting nerve roots. Maria Guadalupe Alvarado MD Medication Review Current Medications Medications (Trade) Dose Ordered Sig/Ashli Route Start Time Stop Time Status Last Admin (Keppra) 500 mg Q12HR PO 04/12/17 21:00 Future Hold 04/14/17 09:56 (Aricept) 10 mg HS PO 04/12/17 21:00 Future Hold 04/17/17 21:48 (Pravachol) 40 mg DAILY PO 04/13/17 09:00 05/06/17 10:15 (Zoloft) 150 mg DAILY PO 04/13/17 09:00 Future Hold 04/18/17 09:11 (Desyrel) 100 mg HS PO 04/12/17 21:00 Future Hold 04/13/17 20:18 (NS Flush) 2 ml UNSCH PRN IV FLUSH 04/12/17 20:30 (NS Flush) 2 ml BID IV FLUSH 04/12/17 21:00 05/06/17 08:21 (Zofran Inj) 4 mg Q6H PRN IV PUSH 04/12/17 20:30 04/14/17 03:35 Miscellaneous Information 1 Q361D XX 04/12/17 20:30 (Chlorhexidine 2% Cloth) 3 pack Taper DAILY@04 TOP 04/13/17 04:00 04/09/18 03:59 (Chlorhexidine 2% Cloth) 3 pack UNSCH PRN TOP 04/12/17 20:30 (Julia-Colace) 1 tab BID PO 04/12/17 21:00 05/05/17 20:08 (Milk Of Magnesia Liq) 30 ml Q12H PRN PO 04/12/17 20:30 (Senokot) 17.2 mg Q12H PRN PO 04/12/17 20:30 (Dulcolax Supp) 10 mg DAILY PRN RECTAL 04/12/17 20:30 05/03/17 09:12 (Lactulose Liq) 30 ml DAILY PRN PO 04/12/17 20:30 (Apresoline Inj) 20 mg Q4H PRN IV PUSH 04/14/17 12:30 05/02/17 15:39 (Lopressor) 12.5 mg Q12HR PO 04/19/17 09:00 Future hold 05/06/17 10:08 (Pill Splitter) 1 ea UNSCH PRN OTHER 04/19/17 09:00 (Sodium Chloride) 2 gm DAILY NG 04/19/17 14:00 Future Hold (NovoLOG SUPPLEMENTAL SCALE) 1 Q6HR SQ 04/21/17 18:00 1/24/18 05:16 (D50w (Vial) Inj) 25 ml UNSCH PRN IV 04/21/17 14:15 04/23/17 05:22 (Glucagon Inj) 1 mg UNSCH PRN IM/SQ 04/21/17 14:15 (Cathflo Activase Inj) 2 mg Q2H PRN INTRACATH 04/21/17 14:15 04/22/17 03:39 (Detrol La) 4 mg DAILY PO 04/21/17 15:00 05/06/17 10:10 (Levemir Inj) 20 units Q12HR SQ 04/24/17 21:00 05/06/17 10:16 (Free Water) 300 ml Q4HR G-TUBE 04/29/17 12:00 05/06/17 12:34 (Tylenol 650 Mg/ 20 ml Liq) 650 mg Q6H PRN NG 04/30/17 09:45 05/06/17 01:49 (Albuterol Neb) 2.5 mg Q2HR NEB PRN NEB 04/30/17 09:45 (Lacrilube Opht Oint) 1 applic Q12HR EACH EYE 04/30/17 21:00 05/06/17 08:20 (Magic Mouthwash Adult Liq) 10 ml Q6H PRN SWISH-SPIT 05/02/17 15:45 05/03/17 09:09 (Pepcid) 10 mg BID NG 05/03/17 21:00 05/06/17 10:08 Ceftriaxone Sodium 1000 mg/ Sodium Chloride 100 ml @ 200 mls/hr Q12H IV 05/03/17 18:00 05/06/17 05:16 (Neurontin) 300 mg DAILY PO 05/05/17 09:00 05/06/17 10:09 Sodium Bicarbonate 75 meq/Sodium Chloride 1,075 ml @ 125 mls/hr Q8H36M IV 05/05/17 20:00 05/06/17 04:35 (Stacie Amado) Physical Exam General Appearance: Comfortable (Stacie Amado) Pulmonary Resp Exam: Diminished Breath Sounds (Stacie Amado) Cardiology CV Exam: Regular, Murmur (Stacie Amaod) Gastrointestinal/Abdomen GI Exam: Soft, Non-Tender (Stacie Amado) Genitourinary Exam: Sediment (Urine in bag bloody but clear) (Stacie Amado) Extremeties Extremities Exam: Moderate Edema, Pitting Edema (significant in BUE with trace in LEs.) (Stacie Amado) Neurologic Neuro Exam: Sedated (Stacie Amado) Assessment/Plan Problem List: (1) Acute kidney insufficiency ICD Codes: N28.9 - Disorder of kidney and ureter, unspecified Status: Acute Plan: Etiology of the patient's acute renal insufficiency is not entirely clear. Noted mild hydronephrosis bilateral kidneys. Would appreciate if Dr. Woods would be reconsulted for opinion as worrisome for obstructive uropathy. Consult placed. Renal functions unfortunately continue to deteriorate. UOP minimal. I have discussed in detail with the POAMaggy, and they wish to proceed with dialysis this evening. She has been made aware of the potential complications that can occur with dialysis including hypotension, cardiac arrhythmia, bleeding, and . Discussed with RN who will contact CC to have them place VasCat this evening. manager administrative has been contacted as well for treatment tonight and again tomorrow. It remains to be seem whether dialysis is a temporary measure given his fairly rapid decline in kidney function, but I cannot guarantee this. Advised that if things would not improve otherwise, they could opt to discontinue dialysis at any point. Medications should be adjusted for the patient's estimated GFR if clinically indicated. Avoid agents with significant potential for nephrotoxicity possible including NSAIDs for analgesia, iodine contrast agents. Gadolinium is contraindicated if the GFR is below 30. (2) Metabolic acidosis ICD Codes: E87.2 - Acidosis Status: Acute Plan: Will correct with HD. Related to renal failure (3) Hyperkalemia ICD Codes: E87.5 - Hyperkalemia Status: Acute Plan: Diovan discontinued. Potassium remains elevated. As above, will plan for HD tonight (4) Cranial diabetes insipidus ICD Codes: E23.2 - Diabetes insipidus Plan: Patient currently oliguric. In view of this I will discontinue DDAVP for the present. Pending osmolality (5) Subdural hematoma ICD Codes: I62.00 - Nontraumatic subdural hemorrhage, unspecified (Stacie Amado) Plan The exam, history, and the medical decision-making described in the above note were completed with the assistance of the PA-C. I reviewed and agree with the findings presented. I attest that I had a [id number] encounter with the patient on the same day, and personally performed and documented my assessment and findings in the medical record. (Pedro Lala MD) Stacie Amado May 06, 2017 15:35 Pedro Llaa MD May 06, 2017 17:27
[2017-05-06] MEDS ORDERED: MIDAZOLAM HCL 5 MG/ML VIAL (1 ML) ONE (16:56)
[2017-05-06] MEDS ORDERED: MIDAZOLAM HCL 5 MG/5 ML VIAL IV PUSH ONE (17:00)
[2017-05-06 17:30] LABS: BICARBONATE 22.8 MEQ/L (21.0-32.0); CALCIUM 7.8 MG/DL (8.5-10.1); CREATININE 7.51 MG/DL (0.60-1.30)
--- NOTE | 2017-05-06 17:39 | PD.PROCEDR ---
Central Line Procedure REASON FOR PROCEDURE Hemodialysis access PROCEDURE PERFORMED Right internal jugular double lumen hemodialysis catheter placement CONSENT Informed consent for procedure was obtained. The risks and benefits of the procedure were discussed to include but limited to bleeding, clot formation, infection, and even . ANESTHESIA Local injection of 1% Lidocaine DESCRIPTION OF THE PROCEDURE The patient was placed in supine, mild Trendelenburg position. The area was exposed and cleansed with ChloraPrep, times three. Large sterile drape was used to cover the patient, with the site exposed, under sterile conditions including cap, face mask, sterile gown, and sterile gloves. On single attempt, the introducer needle was inserted with negative pressure in syringe and venous flash was obtained. The guide wire was then advanced without any restriction and the needle was removed. The dilator was used without any complications. Using Seldinger technique the catheter was advanced over the guide wire to a depth of 16 centimeters. The guide wire was removed. All ports were aspirated with dark venous blood return and flushed easily with sterile saline. All ports were capped. Antibiotic disc was placed around central line at puncture site. The hemodialysis line was secured to the skin with two interrupted 2.0 silk sutures. The area was bandaged with sterile see-through central line bandage. RADIOLOGICAL DATA Ultrasound guidance was used to locate the vessel. Doppler/color flow was used to confirm venous flow. Correct guidewire placement was verified using ultrasound. COMPLICATIONS: No apparent complications. CXR was ordered. ESTIMATED BLOOD LOSS: Less than 1 cc. Anish Fallon MD May 06, 2017 17:39
--- NOTE | 2017-05-06 18:00 | RADRPT ---
EXAM DATE/TIME: 05/06/2017 17:44 [facility] COMPARISON: CHEST SINGLE AP, May 01, 2017, 4:41. INDICATIONS : Evaluate right dialysis catheter placement MEDICAL HISTORY : Chronic obstructive pulmonary disease. Hypertension. Carcinoma, prostate. Dementia. Anticoagulant the rapy. Heart murmur. Incontinence. Diabetes. Subdural hematoma. SURGICAL HISTORY : Left craniotomy ENCOUNTER: Initial ACUITY: 1 day PAIN SCORE: Non-responsive. LOCATION: Bilateral chest FINDINGS: A single view of the chest demonstrates interval development of a right basilar consolidation/effusio n. Left lung remains grossly clear. Endotracheal and nasogastric tubes are stable in position. Interv al placement of a large bore dialysis type catheter in the region of the right IJ with the tip projec ting over the central venous system. CONCLUSION: 1. Right IJ dialysis type catheter with the tip projecting over the central venous system. No pneumot horax. 2. Endotracheal and nasogastric tubes are unchanged in position. 3. Developing right basilar consolidation/effusion. Andrew Morales MD on May 06, 2017 at 17:56 Board Certified Radiologist. This report was verified electronically.
[2017-05-06] MEDS: HEPARIN SODIUM - IV 10,000 UNITS/10 ML VIAL PRN (18:10)
[2017-05-06] MEDS: GENTAMICIN SULFATE 20 MG/2 ML VIAL OTHER PRN (18:10)
[2017-05-06] MEDS: CHLORHEXIDINE GLUCONATE 2 % 1 PACK (2 CLOTHS) TOP SCH (19:50)
[2017-05-07] VITALS (18 sets, daily range): BP systolic 124–177; BP diastolic 59–86; PULSE 71–117; RESP 16–29; TEMP 97.5–99.6; O2SAT 95–100
[2017-05-07] MEDS: FREE WATER G-TUBE SCH ×5 (02:34→20:00)
[2017-05-07 05:18] LABS: HEMATOCRIT 29.3 % (39.0-51.0); HEMOGLOBIN 9.8 GM/DL (13.0-17.0); MEAN CELL VOLUME 82.8 FL (80.0-100.0); MEAN CORPUSCULAR HEMOGLOBIN 27.7 PG (27.0-34.0); MEAN CORPUSCULAR HGB CONC 33.4 % (32.0-36.0); MEAN PLATELET VOLUME 8.1 FL (7.0-11.0); PLATELET COUNT 374 TH/MM3 (150-450); RED BLOOD COUNT 3.53 MIL/MM3 (4.50-5.90); RED CELL DISTRIBUTION WIDTH 15.9 % (11.6-17.2); WHITE BLOOD COUNT 9.8 TH/MM3 (4.0-11.0)
[2017-05-07 05:47] LABS: ALBUMIN 1.6 GM/DL (3.4-5.0); CREATININE 6.83 MG/DL (0.60-1.30); PHOSPHORUS 7.4 MG/DL (2.5-4.9)
[2017-05-07] MEDS: cefTRIAXone INJ 1,000 MG in SODIUM CHLORIDE 0.9% INJ 100 ML IV SCH ×2 (06:00→17:58)
[2017-05-07] MEDS: INSULIN ASPART SUPPLEMENTAL SCALE SQ SCH ×4 (06:00→17:22)
[2017-05-07] MEDS: METOPROLOL TARTRATE 25 MG TAB PO SCH ×4 (08:20→21:02)
[2017-05-07] MEDS: PRAVASTATIN SOD 40 MG TAB PO SCH ×2 (08:20→08:38)
[2017-05-07] MEDS: GABAPENTIN 300 MG CAP PO SCH ×2 (08:20→08:38)
[2017-05-07] MEDS: DOCUSATE SODIUM 50 MG/SENNA 8.6 MG TAB PO SCH ×3 (08:20→21:00)
[2017-05-07] MEDS: FAMOTIDINE 20 MG TAB NG SCH ×3 (08:20→21:03)
[2017-05-07] MEDS: INSULIN DETEMIR 100 UNITS/ML VIAL SQ SCH ×2 (08:38→21:00)
[2017-05-07] MEDS: TOLTERODINE TARTRATE 4 MG CAP LA PO SCH (08:38)
[2017-05-07] MEDS: ARTIFICIAL TEARS OPTH OINT 3.5 APPLIC/3.5 GM TUBO EACH EYE SCH ×2 (08:39→21:02)
[2017-05-07] MEDS: SODIUM CHLORIDE 0.9% FLUSH 10 ML FLUSH IV FLUSH SCH ×2 (08:39→21:02)
[2017-05-07] MEDS ORDERED: MIDAZOLAM HCL 5 MG/5 ML VIAL IV PUSH ONE (08:45)
[2017-05-07] MEDS ORDERED: CISATRACURIUM BESYLATE 20 MG/10 ML VIAL IV PUSH ONE (08:45)
--- NOTE | 2017-05-07 08:48 | HHI.CCPN ---
Subjective Remarks/Hospital Course 04/12: 71-year-old male presents for evaluation after he fell hitting his head. Per family report they were in the bathroom trying to change his undergarments when he slipped and fell hitting his head. He is not on anticoagulant. The patient is pleasantly confused and patient's daughter states this is his baseline. He has had no altered mental status since the fall. No vomiting. The patient reports a mild headache without radiation. No neck pain or back pain. He has been ambulatory without difficulty since the fall. The CT head performed in the emergency department shows bilateral subdural hematomas in addition to parafalcine subdural hematoma, left frontal and temporal lobe intraparenchymal hemorrhages and subfalcine herniation from [id number]. 04/13: Resting in bed comfortably at the time of my evaluation this morning. Confused, does not know the year. Knows he is in the hospital. Moves all 4 extremity's. Does not appear to be in any acute distress. 04/14: Afebrile. The patient continues to be confused but easily following commands notable systolic ejection murmur, echo pending. Patient scheduled for neurosurgical intervention this afternoon. 04/15: Tmax 99.3. The patient status post craniotomy with evacuation of subdural hematoma last evening, remained intubated, only on sedation with propofol infusion and requiring low-dose phenylephrine to maintain map greater than 65. Sedation was briefly lightened last evening postoperatively, and the patient was extremely agitated. IV fluids changed from D5W to normal saline with [address] brain performed. INR pending. 04/16: Tmax 99.8 Patient agitated during the night , swinging his legs out of the bed while on maximum doses of propofol infusion, fentanyl infusion low-dose added this a.m. Patient's diet advance will begin tube feeds this a.m. The patient was noted to have multifocal PVCs intermittent during the night potassium level 3.2 currently being repleted with K-Phos. 04/17: Tmax 101.6. The patient underwent emergent craniotomy for evacuation of acute recurrent left subdural hematoma last evening. The patient continues on 3 % normal saline, with serial sodium and osmole is being followed. Currently weaning slowly sedation for neuro assessment. Patient noted to have a significant elevation in WBC count of 22, blood cultures urine cultures and sputum cultures obtained. Chest x-ray now showing bilateral lung opacities edema versus possible infectious process being ruled out. Echo revealed patient has severe aortic stenosis with a roommate mean gradient of 44. The patient continues on phenylephrine for vasopressors support at this time. 04/18: Last evening, the patient went into A. fib RVR, heart rate low 100s, with self resolution. This a.m. the patient continues to have sinus rhythm/sinus tachycardia 90-105 with frequent multifocal PVCs. Electrolytes within normal limits. Given the significant medical history for severe aortic stenosis metoprolol 2.5 mg IV for rapid heart rate instituted. The patient continues on phenylephrine infusion for maintenance of a map greater than 65. Propofol is currently being weaned off. EEG revealed last night severe encephalopathy. No change in neurological status but patient still is under sedation patient withdraws to pain bilateral lower extremities and now has spontaneous eye opening intermittently. Leukocytosis notably is resolving. 04/19: Afebrile. Today afternoon the patient was noted to have a seizure, Ativan 1 mg IV push with resolution EEG ordered. Post seizure the patient was noted to have gross hematuria. Coag studies performed within normal limits, fibrinogen level slightly elevated . Creatinine kinase noted to be within normal limits. Hematuria thought to possibly be secondary to acquired von Willebrand's factor secondary to the shear stress from his severe aortic stenosis. DDAVP 2 mcgs IV 1 dose ordered this a.m.. Patient continues on 3% sodium chloride, phenylephrine has been discontinued. 04/20: Remains sedated, orally intubated on mechanical ventilation. Remains on 3 % saline. Off phenylephrine currently. Blood pressure labile. Tolerating tube feeds. 04/21: Remains sedated, orally intubated on mechanical ventilation. Stopping 3% saline. Tolerating tube feeds 04/22: Remains sedated, orally intubated on mechanical ventilation. On Levophed for pressor support. Spiking temperatures. Started on Zosyn yesterday. Continues to have hematuria. One unit PRBCs and fluid bolus ordered. 04/23: Appears to have developed ADRIANNE from osmotic diuresis associated with poorly controlled diabetes. Hyperglycemia exacerbated by dextrose containing solution. Will start constant carb feedings with glucerna, reduce levemir, add SSI coverage, and hydrate to correct fluid depletion. 04/24: Continued serum concentration associated with free water loss. No improvement in neurological function. Suspect osmotic diuresis from elevated glucose but will check urine specific gravity to rule out DI. 04/25: Osmolality improving. Continue DDAVP prn. 04/26: Alertness much improved after Na corrected. Required DDAVP X 2. Gas exchange acceptable and he is strong on CPAP trial. Right arm edematous, ultrasound with no thrombus. 04/27: Extubated > 24 hours ago and breathing comfortably. Protects airway. Electrolytes normalized. Transfer. 04/28: Tolerating extubation but respiratory rate increased, not labored. Osmolality normalized off of DDAVP. 04/29: more somnolent today, but still awake and following commands. sodium mp from 143 to 147 off DDAVP. will restart free water. ROS unobtainable due to patient's baseline mental status. 3-way contreras persists, less hematuria noted. Cr continues to improve. remains stable for transfer to floor. SUBJECTIVE: 04/30: Currently in room 1319 . Resting in sitting position bed. Currently resting in bed in no acute distress. Contreras catheter remains. 05/01: > 5 liters urine with rising BUN/Creatinine - appears to have slipped back into DI. 05/02: Daughter request Palliative Care consult to assist with decision making re continued aggressive care, trach. 05/03: Intermittent diabetes insipidus causing big problems for kidneys. Episodic diuresis unpredictable and between bouts he develops pulmonary edema. Remains very weak and unable to tolerate vent weaning trials. 05/04: Patient continues to deteriorate. He will not survive this hospitalization. 05/05: No improvement. Renal function deteriorating. 05/06: Kidneys continue to deteriorate. Family has decided to continue with aggressive care. They want us to proceed with trach, PEG, and dialysis. Terminal disease process. 05/07: Family has elected to continue with aggressive care. Need and risks of tracheostomy insertion have been discussed with the daughter. She accepts risks , including bleeding and . Objective Vital Signs Date Time Temp Pulse Resp B/P (MAP) Pulse Ox O2 Delivery O2 Flow Rate FiO2 05/07/17 06:00 78 05/07/17 04:06 98 30 05/07/17 04:00 98.8 19 127/81 (96) Intake and Output 05/07/17 05/07/17 05/08/17 08:00 16:00 00:00 Intake Total 590 ml Output Total 75 ml Balance 515 ml Result Diagram: 05/07/17 0435 05/07/17 0435 Imaging Last Impressions Head CT 04/27/17 0000 Signed Impressions: Service Date/Time: Thursday, April 27, 2017 11:04 - CONCLUSION: 1. Interval removal of the patient's subdural drain. There is still a small amount of subdural hemorrhage remaining along the left frontal cortex. The remainder of the hemorrhage along the parietal is no longer identified. Findings were discussed in detail above. Luis Moreno MD Chest X-Ray 04/26/17 0400 Signed Impressions: Service Date/Time: Wednesday, April 26, 2017 04:12 - CONCLUSION: No significant interval change. Zeferino Hewitt MD Upper Extremity Ultrasound 04/25/17 0000 Signed Impressions: Service Date/Time: Tuesday, April 25, 2017 11:44 - CONCLUSION: No evidence of right upper extremity DVT. David Meade MD Cervical Spine CT 04/12/17 0000 Signed Impressions: Service Date/Time: Wednesday, April 12, 2017 17:36 - CONCLUSION: Degenerative spondylosis without any significant compromise to the thecal sac or the exiting nerve roots. Maria Guadalupe Alvarado MD Objective Remarks GENERAL: 71-year-old Elderly gentleman. SKIN: Warm and dry. No rash HEAD: Atraumatic. Normocephalic. EYES: Pupils equal and round 2 mm bilaterally and reactive. No scleral icterus. No injection or drainage. ENT: No nasal bleeding or discharge. Mucous membranes pink and moist. NECK: Trachea midline. Orally intubated. CARDIOVASCULAR: Regular rate and rhythm. NL S1, S2. 2/6 systolic murmur right upper sternal border RESPIRATORY: No wheezing rales or rhonchi, good terese air movement. GASTROINTESTINAL: Abdomen soft, non-tender, nondistended, no guarding. BS active. : Contreras catheter in place MUSCULOSKELETAL: Extremities without clubbing, cyanosis. Right arm with resolving gross edema. NEUROLOGICAL: Moves 4 limbs weakly. Withdraws to pain in all 4 extremities. Otherwise largely unresponsive. Procedures 1/2-left frontoparietal craniotomy with evacuation of subacute on chronic SDH 04/17-@ 0000 emergent craniotomy with evacuation of acute recurrent left subdural hematoma A/P Assessment and Plan NEURO/PSYCH TBI -Subdural hematoma S/P Left frontoparietal craniotomy with evacuation of subacute on chronic SDH S/P Emergency revision/evacuation of acute recurrent left subdural hematoma Acute encephalopathy- resolving slowly Dementia disorder NOS Depression -Neurosurgery following. Dr. Odom - Neuro checks per protocol - Repeat CT head per neurosurgery-stable acute subdural hematoma within frontal regions, bilateral 5 mm subfalcine herniation to the right - Seizure prophylaxis with levetiracetam has been discontinued GBG discontinued 04/26 - 04/18 EEG-severe encephalopathy avoid long-acting sedating meds continue home gabapentin. 400 mg 3 times a day Trazodone 100 mg at night, sertraline 150 mg daily and donepezil 10 mg a old discontinued secondary QTc prolongation Acetaminophen 650 mg by NG every 6 hours when necessary fever Continuing episodic DI RESP: COPD Acute hypoxic and hypercarbic respiratory failure - resolving. Nasal cannula to maintain saturations greater than equal to 90% Incentive spirometry while awake Albuterol/ipratropium aerosols every 6 hours with albuterol aerosols 2 hours. Dyspnea - Extubated 04/26. - aggressive pulmonary toilet with a cappella/CPAP incentive spirometry - PRVC vent mode 04/30 CV: Severe Hypotension- -resolved. Sinus tachycardia- resolved. Essential hypertension -04/14 EKG prolonged QT 475, continue close monitoring - 04/16 Echo-s Normal left ventricular size. Severe concentric left ventricular hypertrophy. The left ventricular systolic function is low normal with an estimated ejection fraction in the range of 50- 55%. Trace aortic valve regurgitation. Severe aortic valve stenosis. Moderate thickening of the aorticv alve leaflets. Aortic valve mean gradient is 44 mmHg. - Repeat cook pie QTc-holding benazepril and sertraline and donepezil Continue valsartan 80 mg by mouth daily for hypertension/home medication Started on metoprolol tartrate twice a day for hypertension GI: Acute protein calorie Malnutrition - severe - Continue tube feeds Glucerna 1.5 with goal 60cc/hr Famotidine 20 mg by 2 twice a day for bowel regimen Docusate sodium/senna 1 tablet twice a day for bowel regimen : Hematuria Maintain Contreras Dr. Woods has followed Neurology recommends replace Contreras catheter with a 18 [place] coud and irrigate when necessary clots (previously with a 14 [place] catheter) Continue tolterodine 4 mg by mouth daily for management of bladder spasms Holding trospium 20 mg twice a day ENDO: Diabetes mellitus - improved control. Central Diabetes Insipidus - Hold metformin 500 mg daily/home medication - Insulin sliding scale Novulog -high dose dose regimen, 25 units sliding scale past 24 hours Currently on insulin detemir 20 units twice a day - Unable to get clear urine due to bladder bleed. - Responding well to DDAVP, now stopped 04/28. Currently on free water 300mL po q4h - daily bmp to check sodium - Restart DDAVP ID: Septic shock- resolved. Pneumonia - resolved. Bacteremia- resolved. 04/19-blood cultures-staph intermedius 04/14 sets - contaminant 04/20 - Sputum cultures with e. coli, klebisella. s/p full course of Augie/ tazobactam 04/21 - 04/27. monitor off abx for fever, signs of infection. HEME: Last CBC 04/25. Leukocytosis. Recheck in a.m. 05/01 FEN: Hypernatremia See above treatment plan Continue free water 300 cc every 4 hours. Recheck BMP in a.m. Replace electrolytes as clinically indicated MSK PT evaluate and treat DVT GI prophylaxis - Teds SCDs - No pharmacological DVT prophylaxis due to subdural hematoma - Pepcid BID Overall impression: Family continues to want aggressive care. They understand his chances of survival and return to a meaningful existence are very small. Roland Figueroa MD May 07, 2017 08:48
[2017-05-07 11:08] LABS: HEPATITIS A AB IGM NEGATIVE (NEGATIVE); HEPATITIS B CORE AB IGM NEGATIVE (NEGATIVE); HEPATITIS B SURFACE ANTIGEN NEGATIVE (NEGATIVE); HEPATITIS C AB IgG NEGATIVE (NEGATIVE)
--- NOTE | 2017-05-07 11:08 | HHI.NSPN ---
(Lacho Lacey Betsey JOSEPH) History Chief Complaint: Unable to obtain due to patient's clinical condition. (Lacho Lacey SSIS ARCHITECT) Interval History 04/12: Mr. Hope is a 71-year-old male who presented to the emergency room today after he fell at home in the presence of his daughter. She states that he lost his balance while trying to put some close on, and fell and struck his head. There was no loss of consciousness. No seizure activity or nausea or emesis reported. The patient has baseline dementia and confusion, but no definite overall change in his mentation after the fall earlier today, according to his daughter, who he lives with. He presently has no complaint of headache. He does have some chronic neck and back pain. 04/13: The patient was examined in the presence of the family today and a more detailed history has been obtained. They indicate chronic progressive dementia to the point that the patient has had to move in with his daughter earlier this year. He cannot care for himself. He is usually quite confused, conversing with only a few words or short sentences and unable to stay on task with conversations. He is usually very active, fidgeting constantly. They state that his mental status today is not significantly changed from his overall baseline. He did go to the emergency room a couple of weeks ago at [facility] due to some pressure sensation or frontal headaches and was diagnosed with sinus congestion. A CT scan of the head was not obtained. He has had no definite falls over the past few weeks up until yesterday. 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 Post-operatively he returned to [facility] for further care and monitoring. 04/15: This morning the patient is obtunded and has no sedation infusing. He does withdraw to noxious stimulation. He does not open his eyes but does have facial grimacing and turns his head to noxious stimulation. ADDENDUM at 1854: Patient was sedated with propofol 50 mcg/kg/min when seen, the pump was not visible at the time. BET. 04/16: When seen the patient is obtunded but does have the propofol drip infusing. Nursing reports that he moves all extremities but does become agitated when the propofol is weaned down. He moves all extremities to noxious stimulation when seen but did not follow any commands. 04/17: The patient remains obtunded and continues to be sedated with a propofol drip. He is now on phenylephrine for blood pressure support. He does not respond to commands and only withdraws the lower extremities to noxious stimulation. He does have some facial grimacing but no eye opening to noxious stimulation. He did go emergently late last night/early this morning for a revision of the left frontoparietal craniotomy for evacuation of a recurrent left hemisphere subdural haematoma. 04/18/17: intubated, propofol just turned off, intermittent movement to ext per nursing, not opening eyes. 04/19/17: nursing reports seizures yesterday, repeat CT head stable residual SDH and 5 mm midline shift. Awaiting EEG. 04/20: Patient with right eye partially opened when seen but Nursing just stimulated patient. He remains intubated and mechanically ventilated. He withdraws to noxious stimuli to the lower extremities but not the upper. He does have facial grimacing to noxious stimulation. Nursing reports that overnight KWAME #1 had 170 mL of yellowish drainage. She also says the patient has been off sedation approximately 36 hours. 04/21: The patient was examined in the presence of the family today and a more detailed history has been obtained. They indicate chronic progressive dementia to the point that the patient has had to move in with his daughter earlier this year. He cannot care for himself. He is usually quite confused, conversing with only a few words or short sentences and unable to stay on task with conversations. He is usually very active, fidgeting constantly. They state that his mental status today is not significantly changed from his overall baseline. He did go to the emergency room a couple of weeks ago at [facility] due to some pressure sensation or frontal headaches and was diagnosed with sinus congestion. A CT scan of the head was not obtained. He has had no definite falls over the past few weeks up until yesterday. 04/23: When seen the patient did have his eyes partially opened and he opened them wider to voice. He was moving the left upper and both lower extremities to varying degrees spontaneously. It was questionable if he moved the left lower to command but did move all extremities to noxious stimulation. 04/24: It is difficult to say if the patient was asleep when seen or not. It did appear he had his eyes partially open since Nursing was in the room. He did open them briefly to my voice. He spontaneously moved the left hand some and gripped this practitioner's hand. He moved the lower extremities to command. There was no noted movement of the right upper to noxious stimulation but he did have facial grimacing. 04/25: Patient is sedated but will respond to painful stimulation. 04/26: Patient now extubated and much more alert and responsive. He is not indicating any significant pain complaints. 04/27: This morning the patient's eyes are open. He did squeeze to command with the left hand and had withdrawal of the other extremities to noxious stimulation. He has been extubated but is nonverbal. He has mild respiratory effort on a nasal cannula. 04/28: When seen this morning the patient is lethargic. He did not open his eyes to voice or follow any commands. He did have slight withdrawal of the left upper and both lower extremities to noxious stimulation. He did have facial grimacing to noxious stimulation as well. 04/29: The patient is awake this morning. He is on a nasal cannula. He squeezes with the left hand when a hand is placed in it. He moves both feet to noxious stimulation. He had no movement of the right upper extremity. 04/30: This morning the patient is sitting up in the cardiac chair with his eyes closed. There was no evident eye opening to voice. He was noted to move the left lower extremity spontaneously. He did give a slight squeeze with the left hand to command and appears to have tried to give a thumbs up when asked to. He did move the right lower extremity to noxious stimulation and there was muscle contraction noted to the right forearm to noxious stimulation. 05/01: When seen this morning the patient is intubated and on CPAP. He does not respond to any commands or open his eyes. He does spontaneously move the left upper extremity and both lower to noxious stimulation. There was no response with the right upper. Nursing reports that during the night his systolic blood pressure dropped into the 70s, his respirations were in the 30s and he was tachycardiac in the 130s. He was therefore emergently intubated. He was given three litres of intravenous fluids and his systolic blood pressure improved. 05/02: The patient is seen moving both lower extremities spontaneously. He remains intubated and mechanically ventilated. He is not on any sedation. His daughter is present and states that he did open his eyes briefly to her voice and that he was squeezing her hand. He did squeeze this practitioner's hand to command and moved both lower extremities to noxious stimulation. There was no movement of the right upper. 05/03: The patient is lethargic when seen. He does not have any sedation infusing. He remains intubated but is on CPAP. He does spontaneously move the lower extremities but is not following any commands. He did move his extremities to noxious stimulation as well as have facial grimacing. 05/04: This morning the patient is lethargic when seen. He continues to be intubated and is now mechanically ventilated. He does squeeze twice with the left hand and moves all extremities to noxious stimulation. He is not on any sedation. 05/05: When seen the patient is lethargic. He remains intubated and on PCV settings. He opened his eyes to voice. There was some questionable movement of the feet to command but he did withdraw the lower extremities to noxious stimulation. He didn't follow commands with the left upper but did have some movement with noxious stimulation. 05/06: The patient is seen moving both lower extremities spontaneously this morning. He does not appear to follow commands but has a strong withdrawal response with the lower extremities to noxious stimulation. The left upper response is weak. No response with the right upper. Nursing reports that Palliative Care spoke with the family and they want to continue aggressive care measures at present to include dialysis. 05/07: Dialysis is at the bedside when the patient was seen this morning. The Surgical Manager placed a temporary haemodialysis catheter late yesterday afternoon. The patient still remains lethargic. He is spontaneously moving the lower extremities as well as to noxious stimulation. He does move the left upper to noxious stimulation. With noxious stimulation to the right upper the patient pulls both knees up strongly. (Lacho Lacey) System Review Comments Unable to obtain due to patient's clinical condition. (Lacho Lacey) Exam Results 1/23/18 1/05/06/17 05/06/17 05/07/17 05/07/17 06:00 18:00 06:00 18:00 06:00 18:00 Intake Total 3861 ml 2559 ml 2073 ml 1125 ml 690 ml Output Total 500 ml 50 ml 125 ml 75 ml 1575 ml Balance 3361 ml 2509 ml 1948 ml 1050 ml -885 ml IV Total 3043 ml 1000 ml 1040 ml 1125 ml 100 ml Tube Feeding 518 ml 659 ml 533 ml 490 ml Other 300 ml 900 ml 500 ml 100 ml Output Urine Total 500 ml 50 ml 125 ml 75 ml 75 ml Hemodialysis 1500 ml # Bowel Movements 1 1 3 3 Vital Signs Date Time Temp Pulse Resp B/P (MAP) Pulse Ox O2 Delivery O2 Flow Rate FiO2 05/07/17 10:00 112 05/07/17 09:35 97 30 05/07/17 08:00 98.6 100 18 124/65 (84) 97 05/07/17 08:00 100 05/07/17 08:00 30 05/07/17 06:00 78 05/07/17 04:06 98 30 05/07/17 04:00 30 05/07/17 04:00 98.8 108 19 127/81 (96) 97 05/07/17 04:00 108 05/07/17 02:00 94 05/07/17 00:00 88 05/07/17 00:00 30 05/07/17 00:00 98.6 88 19 124/67 (86) 96 05/07/17 00:00 96 30 05/06/17 22:00 96 05/06/17 21:04 98 30 05/06/17 20:00 98.7 96 16 117/64 (81) 99 05/06/17 20:00 30 05/06/17 20:00 96 05/06/17 18:00 91 05/06/17 16:00 90 05/06/17 16:00 98.2 88 18 143/72 (95) 98 05/06/17 16:00 35 05/06/17 15:56 98 35 05/06/17 14:00 89 05/06/17 12:00 98.4 88 16 133/74 (93) 100 05/06/17 12:00 88 05/06/17 12:00 35 05/06/17 11:17 100 35 05/06/17 10:00 77 05/06/17 08:58 100 35 05/06/17 08:00 71 05/06/17 08:00 98.7 70 16 117/71 (86) 100 05/06/17 08:00 35 05/06/17 06:00 100 05/06/17 04:08 98 35 05/06/17 04:00 35 05/06/17 04:00 94 05/06/17 04:00 98.2 94 20 136/89 (105) 98 05/06/17 02:00 76 05/06/17 00:45 96 35 05/06/17 00:00 35 05/06/17 00:00 98.2 100 23 148/82 (104) 97 05/06/17 00:00 100 05/05/17 22:00 88 05/05/17 20:43 100 35 05/05/17 20:00 88 05/05/17 20:00 35 05/05/17 20:00 98.2 88 16 125/60 (81) 99 05/05/17 18:00 112 05/05/17 16:00 113 05/05/17 16:00 35 05/05/17 16:00 99.9 113 18 118/74 (89) 100 05/05/17 16:00 94 35 05/05/17 14:00 93 05/05/17 12:10 99 35 05/05/17 12:00 35 05/05/17 12:00 90 05/05/17 12:00 99.3 90 17 121/69 (86) 100 05/05/17 10:00 89 05/05/17 08:00 81 05/05/17 08:00 35 05/05/17 08:00 98.8 81 17 132/74 (93) 100 05/05/17 07:43 100 35 05/05/17 06:00 66 05/05/17 05:11 100 35 05/05/17 04:00 35 05/05/17 04:00 92 05/05/17 04:00 98.3 92 20 122/66 (84) 100 05/05/17 02:00 96 05/05/17 01:11 100 35 05/05/17 00:00 98.8 100 16 122/63 (82) 98 05/05/17 00:00 35 05/05/17 00:00 100 05/04/17 22:00 98 05/04/17 20:37 97 35 05/04/17 20:00 35 05/04/17 20:00 98.2 106 24 145/81 (102) 97 05/04/17 20:00 106 05/04/17 16:00 35 05/04/17 16:00 98.4 106 20 139/69 (92) 100 05/04/17 15:25 99 35 05/04/17 12:00 35 05/04/17 12:00 97.8 95 17 141/68 (92) 98 05/04/17 11:10 97 35 (Lacho Lacey) Physical Examination GENERAL: Lethargic, no sedation infusing, no apparent distress. Intubated and mechanically ventilated. HEENT: Left craniotomy surgical incision well approximated, some crusting still present, no evident drainage, erythema or streaking. PERRLA 3mm. Orally intubated. NGT left nare. Erosion of the philtrum. MUSCULOSKELETAL: No clubbing or deformity evident. Move BLE spontaneously. Moving BLE spontaneously & LUE to noxious stimulation. NEUROLOGICAL: Lethargic, w/o any sedation infusing. No eye opening to voice. Nonverbal, intubated. Facial grimacing to noxious stimulation. Moving BLE spontaneously & strong withdrawal to local noxious stimulation. Moves LUE to local noxious stimulation but none to the RUE. He does grasp this practitioner's hand when it is placed in his but when just a finger is he does not follow commands to squeeze. With local noxious stimulation to the RUE the patient has a strong response by pulling the knees up. (Lacho Lacey) Physical Examination Lethargic, w/o any sedation infusing. No eye opening to voice. Nonverbal, intubated. Facial grimacing to noxious stimulation. Moving BLE spontaneously & strong withdrawal to local noxious stimulation. Moves LUE to local noxious stimulation but none to the RUE. He does grasp this practitioner's hand when it is placed in his but when just a finger is he does not follow commands to squeeze. With local noxious stimulation to the RUE the patient has a strong response by pulling the knees up. (Dimitry Matamoros MD) Lab, Micro, Other Results Recent Impressions Chest X-Ray 05/06/17 0000 Signed Impressions: Service Date/Time: Saturday, May 06, 2017 17:44 - CONCLUSION: 1. Right IJ dialysis type catheter with the tip projecting over the central venous system. No pneumothorax. 2. Endotracheal and nasogastric tubes are unchanged in position. 3. Developing right basilar consolidation/effusion. Andrew Morales MD Renal Ultrasound 05/05/17 0000 Signed Impressions: Service Date/Time: Friday, May 05, 2017 20:08 - CONCLUSION: 1. Mild hydronephrosis. Echogenic kidneys characteristic of mild medical renal disease. Lalo Loo MD Laboratory Tests Test 05/05/17 14:14 05/05/17 21:43 05/06/17 04:34 05/06/17 16:25 Blood Urea Nitrogen 101 MG/DL 109 MG/DL 113 MG/DL Creatinine 6.37 MG/DL 7.09 MG/DL 7.51 MG/DL Random Glucose 95 MG/DL 205 MG/DL 147 MG/DL Albumin 1.5 GM/DL 1.6 GM/DL Calcium Level 7.7 MG/DL 8.1 MG/DL 7.8 MG/DL Phosphorus Level 8.3 MG/DL 8.2 MG/DL Sodium Level 146 MEQ/L 140 MEQ/L 143 MEQ/L Potassium Level 5.7 MEQ/L 5.7 MEQ/L 6.3 MEQ/L Chloride Level 113 MEQ/L 106 MEQ/L 108 MEQ/L Carbon Dioxide Level 20.7 MEQ/L 19.8 MEQ/L 22.8 MEQ/L Anion Gap 12 MEQ/L 14 MEQ/L 12 MEQ/L Estimat Glomerular Filtration Rate 9 ML/MIN 8 ML/MIN 7 ML/MIN Urine Eosinophils NONE SEEN /HPF Urine Random Sodium 144 MEQ/L Serum Osmolality 349 MOSM/KG Test 05/07/17 04:35 White Blood Count 9.8 TH/MM3 Red Blood Count 3.53 MIL/MM3 Hemoglobin 9.8 GM/DL Hematocrit 29.3 % Mean Corpuscular Volume 82.8 FL Mean Corpuscular Hemoglobin 27.7 PG Mean Corpuscular Hemoglobin Concent 33.4 % Red Cell Distribution Width 15.9 % Platelet Count 374 TH/MM3 Mean Platelet Volume 8.1 FL Blood Urea Nitrogen 93 MG/DL Creatinine 6.83 MG/DL Random Glucose 139 MG/DL Albumin 1.6 GM/DL Calcium Level 8.0 MG/DL Phosphorus Level 7.4 MG/DL Sodium Level 142 MEQ/L Potassium Level 5.5 MEQ/L Chloride Level 106 MEQ/L Carbon Dioxide Level 25.0 MEQ/L Anion Gap 11 MEQ/L Estimat Glomerular Filtration Rate 8 ML/MIN (Lacho Lacey) Medical Decision Making Impression and Plan Impression: 1. 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 Dementia 4. Cardiac murmur Patient lethargic, moves BLE & LUE extremities to noxious stimulation, and moving BLE spontaneously. Afebrile past 24 hours. Reviewed labs for today. From now have resolution of leukocytosis and anaemia stable. Sodium 142. Hyperkalemia improved. Hyperphosphataemia. Interval improvement in renal function. Sputum culture w/Klebsiella pneumoniae on final . CT brain demonstrated improvement in the left frontal subdural haematoma and chronic hygromas, no haemorrhage or mass effect. EEG consistent w/severe encephalopathy. KWAME #1 was removed . KWAME #2 removed . POD #23 () s/p: Left frontoparietal craniotomy for evacuation of subacute on chronic subdural hematoma Postoperative Diagnosis: (1) Subdural hematoma, chronic (2) Acute subdural hematoma 1. Left hemisphere subacute on chronic subdural hematoma 2. Acute right frontal subdural hematoma POD #20 () s/p: Revision left frontoparietal craniotomy evacuation of recurrent left hemisphere subdural hematoma Postoperative Diagnosis: (1) Acute subdural hematoma Recurrent left hemisphere subdural hematoma Plan: Primary management per Surgical Manager. Neuro checks. Repeat CT brain for any decline in neuro status. Mechanical DVT prophylaxis. Hold pharmacologic DVT prophylaxis. Stress ulcer prophylaxis. (Lacho Lacey) Attending Statement Continue neuro checks Pulmonary. Continue aggressive pulmonary toilette, nasotracheal suction, and breathing treatments with nebulizers. Nutrition. Oral diet Renal. monitor closely urine output, BUN and creatinine Endocrine. Monitor serial Acu checks and SSI as needed in detail ID monitor for signs of infection Protonix for stress ulcer prophylaxis The exam, history, and the medical decision-making described in the above note were completed with the assistance of the mid-level provider. I reviewed and agree with the findings presented. I attest that I had a [id number] encounter with the patient on the same day, and personally performed and documented my assessment and findings in the medical record. (Dimitry Matamoros MD) Lacho Lacey May 07, 2017 11:07 Dimitry Matamoros MD May 10, 2017 18:08
[2017-05-07] MEDS: GENTAMICIN SULFATE 20 MG/2 ML VIAL OTHER PRN (11:30)
[2017-05-07] MEDS: HEPARIN SODIUM - IV 10,000 UNITS/10 ML VIAL PRN (11:30)
--- NOTE | 2017-05-07 13:55 | PD.PROCEDR ---
Procedure Note Procedure DATE: 05/02/2017. PROCEDURE PERFORMED: Fiberoptic bronchoscopy with washings and lavage. PREOPERATIVE DIAGNOSIS: Cavitary pneumonia, right lung. POSTOPERATIVE DIAGNOSES: Cavitary pneumonia, right lung. ANESTHESIA: IV fentanyl 100 milligrams and Versed drip 5 milligrams. PROCEDURAL PHYSICIAN: Juan Carlos Bae MD. DESCRIPTION OF THE PROCEDURE IN DETAIL AND FINDINGS: Procedure/indication Video bronchoscopy assistance for percutaneous tracheostomy placement Procedure: The patient was already intubated with a size 8 endotracheal tube and the Olympus bronchoscope was used to visualize the procedure. The scope was advanced via the endotracheal tube into the trachea. The trachea and wilfred appeared normal. The scope along with the ET tube was withdrawn to 18 cm at the lip. Dr. Fallon performed percutaneous dilation tracheostomy, the 18-gauge needle entry, guidewire placement, serial dilation and then percutaneous tracheostomy placement was visualized directly on video monitor. After procedure was completed the placement was confirmed by introducing the bronchoscope into the new trach and visualizing main wilfred. I also suctioned out the excess blood. Procedure well-tolerated. No blood loss for bronchoscopy. See separate tracheostomy note Prema Rangel MD May 07, 2017 13:55
--- NOTE | 2017-05-07 15:13 | RADRPT ---
EXAM DATE/TIME: 05/07/2017 14:05 [facility] COMPARISON: CHEST SINGLE AP, May 06, 2017, 17:44. INDICATIONS : Tracheotomy MEDICAL HISTORY : Chronic obstructive pulmonary disease. Hypertension. Carcinoma, prostate. Dementia. Anticoagulant the rapy. Heart murmur. Incontinence.Diabetes. Subdural hematoma SURGICAL HISTORY : Left craniotomy ENCOUNTER: Subsequent ACUITY: 2 days PAIN SCORE: Non-responsive. LOCATION: chest FINDINGS: 2 AP views of the chest. Tracheostomy tube is now in place. Nasogastric tube and right IJ central bari ous catheter remain in place. Persistent bilateral lower lobe atelectasis and small right pleural eff usion. No evidence of pneumothorax. CONCLUSION: Tracheostomy tube now in place. No other significant interval change. David Meade MD on May 07, 2017 at 15:09 Board Certified Radiologist. This report was verified electronically.
--- NOTE | 2017-05-07 15:34 | PD.CONS ---
HPI History of Present Illness This is a 71 year old male who presented after a fall when he hit his head. he was found to have bilateral subdural hematomas, intraparenchymal hemorrhages. He is s/p craniotomy and now with tracheostomy on vent. GI has been consulted for PEG tube placement. pts daughter wishes to pursue aggressive care. PFSH Past Medical History Dementia Diabetes Heart murmur COPD Chronic pain Depression Anxiety Cataracts Prostate cancer diagnosed in 2015 status post radiation therapy . Past Surgical History No reported surgeries prior to this admission. . Coded Allergies: No Known Allergies (Verified Allergy, Unknown, 04/12/17) Family History Father had cancer. Mother had Alzheimer's. Sister with Alzheimer's. . Social History unk Review of Systems noncontributory GI Exam Vitals I&O Vital Signs Date Time Temp Pulse Resp B/P (MAP) Pulse Ox O2 Delivery O2 Flow Rate FiO2 05/07/17 14:00 78 05/07/17 13:00 100 100 05/07/17 12:00 117 05/07/17 12:00 98.8 117 29 177/86 (116) 98 05/07/17 12:00 30 05/07/17 10:00 112 05/07/17 09:35 97 30 05/07/17 08:00 98.6 100 18 124/65 (84) 97 05/07/17 08:00 100 05/07/17 08:00 30 05/07/17 06:00 78 05/07/17 04:06 98 30 05/07/17 04:00 30 05/07/17 04:00 98.8 108 19 127/81 (96) 97 05/07/17 04:00 108 05/07/17 02:00 94 05/07/17 00:00 88 05/07/17 00:00 30 05/07/17 00:00 98.6 88 19 124/67 (86) 96 05/07/17 00:00 96 30 05/06/17 22:00 96 05/06/17 21:04 98 30 05/06/17 20:00 98.7 96 16 117/64 (81) 99 05/06/17 20:00 30 05/06/17 20:00 96 05/06/17 18:00 91 05/06/17 16:00 90 05/06/17 16:00 98.2 88 18 143/72 (95) 98 05/06/17 16:00 35 05/06/17 15:56 98 35 I/O 05/06/17 05/06/17 05/06/17 05/07/17 05/07/17 05/07/17 07:00 15:00 23:00 07:00 15:00 23:00 Intake Total 2073 ml 1225 ml 590 ml Output Total 125 ml 1575 ml 75 ml 3000 ml Balance 1948 ml -350 ml 515 ml -3000 ml IV Total 1040 ml 1225 ml Tube Feeding 533 ml 490 ml Other 500 ml 100 ml Output Urine Total 125 ml 75 ml 75 ml Hemodialysis 1500 ml 3000 ml # Bowel Movements 3 3 Imaging Last Impressions Chest X-Ray 05/07/17 0000 Signed Impressions: Service Date/Time: April 14:05 - CONCLUSION: Tracheostomy tube now in place. No other significant interval change. David Meade MD Renal Ultrasound 05/05/17 0000 Signed Impressions: Service Date/Time: Friday, May 05, 2017 20:08 - CONCLUSION: 1. Mild hydronephrosis. Echogenic kidneys characteristic of mild medical renal disease. Lalo Loo MD Head CT 05/01/17 0927 Signed Impressions: Service Date/Time: Monday, May 01, 2017 11:52 - CONCLUSION: 1. Mild interval improvement in left subdural hematoma. 2. 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 3. No new hemorrhage or mass effect. Simon Haley MD Upper Extremity Ultrasound 04/25/17 0000 Signed Impressions: Service Date/Time: Tuesday, April 25, 2017 11:44 - CONCLUSION: No evidence of right upper extremity DVT. David Meade MD Cervical Spine CT 04/12/17 0000 Signed Impressions: Service Date/Time: Wednesday, April 12, 2017 17:36 - CONCLUSION: Degenerative spondylosis without any significant compromise to the thecal sac or the exiting nerve roots. Maria Guadalupe Alvarado MD Laboratory Test 05/06/17 16:25 05/07/17 04:35 Blood Urea Nitrogen 113 MG/DL 93 MG/DL Creatinine 7.51 MG/DL 6.83 MG/DL Random Glucose 147 MG/DL 139 MG/DL Calcium Level 7.8 MG/DL 8.0 MG/DL Sodium Level 143 MEQ/L 142 MEQ/L Potassium Level 6.3 MEQ/L 5.5 MEQ/L Chloride Level 108 MEQ/L 106 MEQ/L Carbon Dioxide Level 22.8 MEQ/L 25.0 MEQ/L Anion Gap 12 MEQ/L 11 MEQ/L Estimat Glomerular Filtration Rate 7 ML/MIN 8 ML/MIN White Blood Count 9.8 TH/MM3 Red Blood Count 3.53 MIL/MM3 Hemoglobin 9.8 GM/DL Hematocrit 29.3 % Mean Corpuscular Volume 82.8 FL Mean Corpuscular Hemoglobin 27.7 PG Mean Corpuscular Hemoglobin Concent 33.4 % Red Cell Distribution Width 15.9 % Platelet Count 374 TH/MM3 Mean Platelet Volume 8.1 FL Albumin 1.6 GM/DL Phosphorus Level 7.4 MG/DL Hepatitis A IgM Antibody NEGATIVE Hepatitis B Surface Antigen NEGATIVE Hepatitis B Core IgM Antibody NEGATIVE Hepatitis C Antibody NEGATIVE Date/Time Source Procedure Growth Status 04/21/17 18:53 Blood Peripheral Aerobic Blood Culture - Final NO GROWTH IN 5 DAYS Complete 04/21/17 18:53 Blood Peripheral Anaerobic Blood Culture - Final NO GROWTH IN 5 DAYS Complete 05/02/17 21:40 Sputum Endotracheal Gram Stain - Final Complete 05/02/17 21:40 Sputum Culture - Final Klebsiella Pneumoniae Complete Physical Examination HEENT:normochephalic no jaundice trach to vent CHEST: CTA CARDIAC: RRR + murmur ABDOMEN: Soft, nondistended, nontender; no hepatosplenomegaly; bowel sounds are present in all four quadrants. EXTREMITIES: No clubbing, cyanosis, or edema. SKIN: Normal; no rash; no jaundice. 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 GI consulted for PEG tube placement. palliative care following. goals aggressive. d/w daughter Magalie Best and she is agreeable to proceed PLAN - EGD with PEG tube placement in am - obtain consent - hold TF after midnight - on abx - further recs to follow this pt seen by myself and Dr Oleary and this note is written on his behalf Mariah Oliveira May 07, 2017 15:34
--- NOTE | 2017-05-07 15:57 | HHI.HCPN ---
Reason for visit a. To assist with evaluation and management of symptoms including: dyspnea, pain, encephalopathy b. To assist medical decision maker(s) with: better understanding of current medical conditions; weighing benefits/burdens of medical treatment options; making medical treatment decisions. . . Subjective/Interval History No significant change in status overnight. Children desire continued aggressive care per conversations on 05/07/17. toward that end, patient had a dialysis catheter placed on 05/06/17 and then underwent tracheostomy this AM. Hemodialysis has started. Patient had the tracheostomy just prior to my arrival and is sleeping soundly from the sedation. Neurosurgery notes from the visit earlier today indicate he remained lethargic. LE's moved spontaneously and to noxious stimulation. UE's moved to noxious stimuli. Highest nursing pain levels over last 24 hours --> #4. Other than fentanyl pre -tracheostomy, he has not been receiving opiate analgesics. Bowels are moving. Minimal urine output and urine is blood tinged. . . Family/friend interactions No family/friend interaction today. . Advance Directives Living Will: Copy in medical record Durable Power of Vice President Sales: Copy in medical record (does not include health care decisions. ) Advance Directive Specifics Date completed: 12/16/16 . Health Care Surrogate(s): Patient is not capacitated to make his own health care decisions, will not regain capacity given underlying dementia. Has Living will and POA, neither include designation of healthcare surrogate. Contacted his quarter backer who reports HCS was never designated. . According to [place] statues, health care proxy decision-making falls to the majority of patient's 4 adult children. . Documented care wishes: Standard living will. . Significant change in goals: Family desires full aggressive care including trach/PEG/dialysis and full code status. . Objective Vital Signs Date Time Temp Pulse Resp B/P (MAP) Pulse Ox O2 Delivery O2 Flow Rate FiO2 05/07/17 14:00 78 05/07/17 13:00 100 100 05/07/17 12:00 117 05/07/17 12:00 98.8 117 29 177/86 (116) 98 05/07/17 12:00 30 05/07/17 10:00 112 05/07/17 09:35 97 30 05/07/17 08:00 98.6 100 18 124/65 (84) 97 05/07/17 08:00 100 05/07/17 08:00 30 05/07/17 06:00 78 05/07/17 04:06 98 30 05/07/17 04:00 30 05/07/17 04:00 98.8 108 19 127/81 (96) 97 05/07/17 04:00 108 05/07/17 02:00 94 05/07/17 00:00 88 05/07/17 00:00 30 05/07/17 00:00 98.6 88 19 124/67 (86) 96 05/07/17 00:00 96 30 05/06/17 22:00 96 05/06/17 21:04 98 30 05/06/17 20:00 98.7 96 16 117/64 (81) 99 05/06/17 20:00 30 05/06/17 20:00 96 05/06/17 18:00 91 05/06/17 16:00 90 05/06/17 16:00 98.2 88 18 143/72 (95) 98 05/06/17 16:00 35 05/06/17 15:56 98 35 Intake & Output 05/07/17 05/07/17 07:00 19:00 Intake Total 590 ml Output Total 1575 ml 3000 ml Balance -985 ml -3000 ml Tube Feeding 490 ml Other 100 ml Output Urine Total 75 ml Hemodialysis 1500 ml 3000 ml # Bowel Movements 3 . Physical Exam CONSTITUTIONAL/GENERAL: This is an elderly, frail, critically ill patient, off sedation on mechanical ventilation. Sedated -- post tracheostomy. Unable follow commands or indicate yes/no to questions. TUBES/LINES/DRAINS: NG tube ,trach; PIV bilateral, Vasscath right jugular vein ; wrist restraints, Munoz, SCD's. SKIN: No jaundice, rashes, or lesions. Ecchymoses on upper extremities. No wounds seen anteriorly. Skin temperature appropriate. Not diaphoretic. HEAD: craniotomy surgical incision healing. ENT: unable to assess hearing given current condition. NG tube. Oral ulcers noted. CARDIOVASCULAR: Regular rate and rhythm, systolic murmur noted right sternal border. RESPIRATORY/CHEST: lungs clear to auscultation. GASTROINTESTINAL: Abdomen soft, nondistended. Bowel sounds present. GENITOURINARY: Without palpable bladder distension. Munoz catheter in place. MUSCULOSKELETAL: Extremities with edema. No mottling or clubbing. NEUROLOGICAL: Sedated post tracheostomy. Does not awaken to voice/exam. Does not follow commands. PSYCHIATRIC: Unable to assess due to level of responsiveness. . . Diagnostic Tests Laboratory Laboratory Tests Test 05/05/17 14:14 05/05/17 21:43 05/06/17 04:34 05/06/17 16:25 Blood Urea Nitrogen 101 MG/DL (7-18) 109 MG/DL (7-18) 113 MG/DL (7-18) Creatinine 6.37 MG/DL (0.60-1.30) 7.09 MG/DL (0.60-1.30) 7.51 MG/DL (0.60-1.30) Random Glucose 95 MG/DL (74-106) 205 MG/DL (74-106) 147 MG/DL (74-106) Albumin 1.5 GM/DL (3.4-5.0) 1.6 GM/DL (3.4-5.0) Calcium Level 7.7 MG/DL (8.5-10.1) 8.1 MG/DL (8.5-10.1) 7.8 MG/DL (8.5-10.1) Phosphorus Level 8.3 MG/DL (2.5-4.9) 8.2 MG/DL (2.5-4.9) Sodium Level 146 MEQ/L (136-145) 140 MEQ/L (136-145) 143 MEQ/L (136-145) Potassium Level 5.7 MEQ/L (3.5-5.1) 5.7 MEQ/L (3.5-5.1) 6.3 MEQ/L (3.5-5.1) Chloride Level 113 MEQ/L (98-107) 106 MEQ/L (98-107) 108 MEQ/L (98-107) Carbon Dioxide Level 20.7 MEQ/L (21.0-32.0) 19.8 MEQ/L (21.0-32.0) 22.8 MEQ/L (21.0-32.0) Anion Gap 12 MEQ/L (5-15) 14 MEQ/L (5-15) 12 MEQ/L (5-15) Estimat Glomerular Filtration Rate 9 ML/MIN (>89) 8 ML/MIN (>89) 7 ML/MIN (>89) Urine Eosinophils NONE SEEN /HPF (NONE SEEN) Urine Random Sodium 144 MEQ/L Serum Osmolality 349 MOSM/KG (275-295) Test 05/07/17 04:35 White Blood Count 9.8 TH/MM3 (4.0-11.0) Red Blood Count 3.53 MIL/MM3 (4.50-5.90) Hemoglobin 9.8 GM/DL (13.0-17.0) Hematocrit 29.3 % (39.0-51.0) Mean Corpuscular Volume 82.8 FL (80.0-100.0) Mean Corpuscular Hemoglobin 27.7 PG (27.0-34.0) Mean Corpuscular Hemoglobin Concent 33.4 % (32.0-36.0) Red Cell Distribution Width 15.9 % (11.6-17.2) Platelet Count 374 TH/MM3 (150-450) Mean Platelet Volume 8.1 FL (7.0-11.0) Blood Urea Nitrogen 93 MG/DL (7-18) Creatinine 6.83 MG/DL (0.60-1.30) Random Glucose 139 MG/DL (74-106) Albumin 1.6 GM/DL (3.4-5.0) Calcium Level 8.0 MG/DL (8.5-10.1) Phosphorus Level 7.4 MG/DL (2.5-4.9) Sodium Level 142 MEQ/L (136-145) Potassium Level 5.5 MEQ/L (3.5-5.1) Chloride Level 106 MEQ/L (98-107) Carbon Dioxide Level 25.0 MEQ/L (21.0-32.0) Anion Gap 11 MEQ/L (5-15) Estimat Glomerular Filtration Rate 8 ML/MIN (>89) Hepatitis A IgM Antibody NEGATIVE (NEGATIVE) Hepatitis B Surface Antigen NEGATIVE (NEGATIVE) Hepatitis B Core IgM Antibody NEGATIVE (NEGATIVE) Hepatitis C Antibody NEGATIVE (NEGATIVE) . Result Diagram: 05/07/17 0435 05/07/17 0435 Microbiology Microbiology Date/Time Source Procedure Growth Status 04/21/17 18:53 Blood Peripheral Aerobic Blood Culture - Final NO GROWTH IN 5 DAYS Complete 04/21/17 18:53 Blood Peripheral Anaerobic Blood Culture - Final NO GROWTH IN 5 DAYS Complete 05/02/17 21:40 Sputum Endotracheal Gram Stain - Final Complete 05/02/17 21:40 Sputum Culture - Final Klebsiella Pneumoniae Complete . Imaging Last Impressions Chest X-Ray 05/07/17 0000 Signed Impressions: Service Date/Time: April 14:05 - CONCLUSION: Tracheostomy tube now in place. No other significant interval change. David Meade MD Renal Ultrasound 05/05/17 0000 Signed Impressions: Service Date/Time: Friday, May 05, 2017 20:08 - CONCLUSION: 1. Mild hydronephrosis. Echogenic kidneys characteristic of mild medical renal disease. Lalo Loo MD Head CT 05/01/17 0927 Signed Impressions: Service Date/Time: Monday, May 01, 2017 11:52 - CONCLUSION: 1. Mild interval improvement in left subdural hematoma. 2. 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 3. No new hemorrhage or mass effect. Simon Haley MD Upper Extremity Ultrasound 04/25/17 0000 Signed Impressions: Service Date/Time: Tuesday, April 25, 2017 11:44 - CONCLUSION: No evidence of right upper extremity DVT. David Meade MD Cervical Spine CT 04/12/17 0000 Signed Impressions: Service Date/Time: Wednesday, April 12, 2017 17:36 - CONCLUSION: Degenerative spondylosis without any significant compromise to the thecal sac or the exiting nerve roots. Maria Guadalupe Alvarado MD . Procedures * Tracheostomy * 05/06/17 --dialysis catheter placed * 05/01/17 - reintubated * 04/26/17 - extubated * 04/19/17 - right subclavian central line placed * 04/17/17 - revision of left frontoparietal craniotomy evacuation of recurrent left hemisphere subdural hematoma notes indicate findings of moderate densely clotted acute recurrent left hemisphere subdural hematoma primarily in the frontal region. 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 . Assessment and Plan Disease Oriented Problem List: (1) Intracranial hemorrhage (2) Pneumonia (3) Aortic stenosis Comment: Echocardiogram describes this as "severe" aortic stenosis. . (4) Hypoalbuminemia (5) Dementia (6) Acute kidney injury Comment: Worsening. Nephrology involved. VasCath placed right jugular and hemodialysis started. Cause of the kidney injury unclear -- obstruction? sepsis ? . (7) Anemia Symptom Scale: (1) Pain 0-10 Scale: Unable to quantify Comment: No known prior pain syndromes. Patient unable to quantify or qualify pain. Furrowed brow/grimacing, appears painful to minimal stimulation, likely secondary to recent surgeries, confusion, tubes, oral ulcerations, peripheral neuropathy, general debility and bedbound status. . (2) Encephalopathy 0-10 Scale: Unable to quantify Comment: likely to underlying dementia, subdural hematomas, surgery, worsening renal function. . (3) Dyspnea 0-10 Scale: Unable to quantify Comment: Remains on mechanical ventilation Pertinent Non-Medical Issues Psychosocial: . Has 4 adult children (Maggy, Magalie, Dale and Hua). Lives with daughter Maggy in [place]. Spiritual: unknown. Legal: : Patient is not capacitated to make his own health care decisions, will not regain capacity given underlying dementia. Has Living will and POA, neither include designation of healthcare surrogate. Contacted his quarter backer who reports HCS was never designated. . According to [place] statues, health care proxy decision-making falls to the majority of patient's 4 adult children. Ethical issues impacting care: no known concerns at this time. . Important Contacts * Maggy Saleh, daughter: [phone] lives with patient in [place] * Magalie Best, daughter: [phone] lives in [place] * Dale, son: lives in [place]: [phone] * Hua, son: lives in [place]: [phone] . Prognosis Mr. Hope is a 71-year-old male with multiple medical comorbidities including COPD, dementia, diabetes, severe aortic stenosis. He has had ongoing trajectory of decline in the months leading up to hospitalization, admitted with bilateral subdural hematoma's, parafalcine subdural hematoma, left frontal and temporal lobe intraparenchymal hemorrhages status post surgery without evidence of neurologic improvement. Unable to be weaned from mechanical ventilation, worsening renal function (now on hemodialysis) and pneumonia. Low albumin. Patient is at high risk of hospital . Should he survive the hospital , will likely be bed/chair bound in residential setting dependent for all ADLs. Patient would be a candidate for hospice care at such time that legal decision makers feel the patient would want to transition to "comfort measures only." . Code Status: Full Code Plan ==Decision Maker: Patient is not capacitated to make his own health care decisions. At this point there is no reasonable probability that he will regain capacity given underlying dementia. Has Living will and POA, neither include designation of healthcare surrogate. Contacted his quarter backer who reports HCS was never designated. . According to [place] statues, health care proxy decision-making falls to the majority of patient's 4 adult children. Though all 4 children want to participate and are equal decision makers, they have opted to have daughter Maggy Saleh ([phone]) serve as the spokesperson and "consent-signer" for them. ==FULL CODE ==Goals of medical treatment: Per family conference call of 05/06/17 all children agree that in spite of current condition and minimal chance of meaningful recovery the patient would want ongoing aggressive care including trach/PEG/dialysis/ and resuscitation attempts. ==SYMPTOMS: * Pain: Comfortable appearing today after sedation for tracheostomy. Off sedation , usually has furrowed brow, appears painful to minimal stimulation, likely secondary to recent surgeries, confusion, tube, oral ulcerations, peripheral neuropathy, general debility and bedbound status. On gabapentin. Sedating analgesics being avoided to better monitor neuro function. Recommend scheduled acetaminophen. * Dyspnea: Patient with underlying copd and now with pneumonia. Dyspnea currently being managed with mechanical ventilation, nebs. No further recommendations at this time. * Encephalopathy: likely to underlying dementia complicated by subdural hematomas, surgery, worsening renal function. No new medication recommendations at this time. ==Palliative care will continue to follow throughout hospital course to assist with symptom management and clarification of goals as needed. . Attestation To help prompt me to consider important information that might be impacting today's encounter and assessment, information from prior notes written by myself or my colleagues may have been "brought forward" into today's note. My signature on this note, however, is an attestation that I personally performed the exam, history, and/or decision-making noted today, and, unless otherwise indicated, the interactions with patient, family, and staff as well as the review of records all occurred today. I also attest that the listed assessment and stated plan reflect my best clinical judgment today based on the combination of historical information, prior notes, and today's exam/ interactions. When time spent is documented, it refers only to time spent today by the signer, or if indicated, combined time spent today by collaborating physician/nurse practitioner. . Aden Clayton MD May 07, 2017 15:57
[2017-05-07] MEDS: MORPHINE SULFATE 4 MG/ML INJ IV PUSH PRN ×2 (18:17→21:18)
--- NOTE | 2017-05-07 18:18 | PD.PROCEDR ---
Procedure Note Procedure Dx: Respiratory Failure (J96.00) OP: Percutaneous Tracheostomy (76083) Surgeon: Marleny Figueroa M.D. Poker Prop Player: Anish Fallon M.D. Procedure: Time out performed. Patient on mechanical ventilation, orally intubated, ICU monitoring in place. Versed 5 mg, Fentanyl 100 mg, and Nimbex 20 mg infused. Anterior neck prepped and draped in extension. Suprasternal notch soft tissue infiltrated with 1% lidocaine with epinephrine. Two cm vertical incision made 2 cm above the sternal notch in the midline. Orotracheal tube withdrawn with bronchoscope to the level of the cricoid. Scope used to assist placement of tracheostomy and dictated separately. Fourteen gauge needle inserted into the trachea, documented in midline above 2nd tracheal ring. Floppy wire advanced to wilfred. Dilators passed and #8 Shiley cuffed tube passed over dilator into main trachea under direct scope visualization. Scope passed quickly down trach tube to confirm position above wilfred. Inner canula placed and ventilation re-established through new trach tube. Position further confirmed with ETCO2 and return of tidal volume. Flange sewn to skin with 4 individual 2-0 prolene sutures. Trach ties applied. CXR without abnormality after procedure. Sats maintained over 95% throughout procedure. Roland Figueroa MD May 07, 2017 18:17
--- NOTE | 2017-05-07 18:43 | HHI.NPPN ---
Subjective History of Present Illness This patient is a 71-year-old male who unfortunately cannot provide any history at this time secondary to change in mental status and he is intubated on ventilatory support currently. Apparently the patient sustained a head injury and was admitted to this institution on April 12, 2017. Imaging studies reveal bilateral subdural hematoma. Patient also said to have a history of dementia, diabetes mellitus as well as COPD. His creatinine level was noted to have been 1.08 on May 02, 2016 subsequently deteriorating progressively thereafter it will level of 6.37 today with a potassium of 5.7. Patient also felt to have diabetes insipidus and has been receiving DDAVP. More recently however the patient has become oliguric. Critical care believes that the patient has a poor prognosis and family has been communicating with palliative care with considerations for a DNR CODE STATUS and possible hospice. No decision has been made as yet regarding dialytic support. Interval History Noted patient now has a trach. Review of Systems General General Remarks Unable to obtain Objective Data Data 05/07/17 05/08/17 19:00 07:00 Output Total 3000 ml Balance -3000 ml Hemodialysis 3000 ml Vital Signs Date Time Temp Pulse Resp B/P (MAP) Pulse Ox O2 Delivery O2 Flow Rate FiO2 05/07/17 16:00 71 05/07/17 16:00 40 05/07/17 16:00 97.5 71 19 125/81 (96) 95 05/07/17 14:00 78 05/07/17 13:00 100 100 05/07/17 12:00 117 05/07/17 12:00 98.8 117 29 177/86 (116) 98 05/07/17 12:00 30 05/07/17 10:00 112 05/07/17 09:35 97 30 05/07/17 08:00 98.6 100 18 124/65 (84) 97 05/07/17 08:00 100 05/07/17 08:00 30 05/07/17 06:00 78 05/07/17 04:06 98 30 05/07/17 04:00 30 05/07/17 04:00 98.8 108 19 127/81 (96) 97 05/07/17 04:00 108 05/07/17 02:00 94 05/07/17 00:00 88 05/07/17 00:00 30 05/07/17 00:00 98.6 88 19 124/67 (86) 96 05/07/17 00:00 96 30 05/06/17 22:00 96 05/06/17 21:04 98 30 05/06/17 20:00 98.7 96 16 117/64 (81) 99 05/06/17 20:00 30 05/06/17 20:00 96 -: 05/07/17 0435 05/07/17 0435 Physical Exam General Appearance: Comfortable Pulmonary Resp Exam: Diminished Breath Sounds Cardiology CV Exam: Regular, Murmur Gastrointestinal/Abdomen GI Exam: Soft, Non-Tender Genitourinary Exam: Sediment (Urine in bag bloody but clear) Extremeties Extremities Exam: Trace Edema, Pitting Edema (significant in BUE with trace in LEs.) Neurologic Neuro Exam: Sedated Assessment/Plan Problem List: (1) Acute kidney insufficiency ICD Codes: N28.9 - Disorder of kidney and ureter, unspecified Status: Acute Plan: Etiology of the patient's acute renal insufficiency is not entirely clear. Noted mild hydronephrosis bilateral kidneys. Would appreciate if Dr. Woods would be reconsulted for opinion as worrisome for obstructive uropathy. Consult placed. Patient's volume status has improved after his second dialysis session today. Reevaluate volume status and laboratory results tomorrow. Daughters by the bedside. Discussed with her current status of her father's renal function and potential for recovery of renal function which is not guaranteed. Patient probably did have a history of dementia but was ambulatory and functional to a certain extent. Patient however now with respiratory insufficiency with a tracheostomy and apparently plans for PEG tube. I believe that this patient is a poor long-term dialysis candidate as discussed with the daughter but hopefully renal recovery will occur. If not I believe further discussion would be indicated regarding patient's quality of life and continuance of dialysis. Medications should be adjusted for the patient's estimated GFR if clinically indicated. Avoid agents with significant potential for nephrotoxicity possible including NSAIDs for analgesia, iodine contrast agents. Gadolinium is contraindicated if the GFR is below 30. (2) Metabolic acidosis ICD Codes: E87.2 - Acidosis Status: Acute Plan: Will correct with HD. Related to renal failure (3) Hyperkalemia ICD Codes: E87.5 - Hyperkalemia Status: Acute Plan: Should've improved with dialysis again today. 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 (5) Subdural hematoma ICD Codes: I62.00 - Nontraumatic subdural hemorrhage, unspecified Plan The exam, history, and the medical decision-making described in the above note were completed with the assistance of the LINO. I reviewed and agree with the findings presented. I attest that I had a [id number] encounter with the patient on the same day, and personally performed and documented my assessment and findings in the medical record. Pedro Lala MD May 07, 2017 18:43
[2017-05-07] MEDS: TOLTERODINE TARTRATE 2 MG TAB PO SCH (21:02)
[2017-05-08] VITALS (17 sets, daily range): BP systolic 99–131; BP diastolic 58–68; PULSE 70–110; RESP 16–22; TEMP 98.2–99; O2SAT 97–100
[2017-05-08] MEDS: CHLORHEXIDINE GLUCONATE 2 % 1 PACK (2 CLOTHS) TOP SCH ×2 (01:24→23:07)
[2017-05-08] MEDS: FREE WATER G-TUBE SCH ×7 (01:25→23:07)
[2017-05-08] MEDS: cefTRIAXone INJ 1,000 MG in SODIUM CHLORIDE 0.9% INJ 100 ML IV SCH ×2 (05:06→17:38)
[2017-05-08 05:07] LABS: ALBUMIN 1.4 GM/DL (3.4-5.0); BICARBONATE 27.7 MEQ/L (21.0-32.0); CALCIUM 7.7 MG/DL (8.5-10.1); CREATININE 5.97 MG/DL (0.60-1.30); PHOSPHORUS 6.3 MG/DL (2.5-4.9)
[2017-05-08] MEDS: INSULIN ASPART SUPPLEMENTAL SCALE SQ SCH ×5 (05:45→23:06)
[2017-05-08] MEDS: TOLTERODINE TARTRATE 2 MG TAB PO SCH ×2 (09:00→19:58)
[2017-05-08] MEDS: SODIUM CHLORIDE 0.9% FLUSH 10 ML FLUSH IV FLUSH SCH ×2 (09:00→19:58)
[2017-05-08] MEDS: DOCUSATE SODIUM 50 MG/SENNA 8.6 MG TAB PO SCH ×2 (09:00→19:58)
[2017-05-08] MEDS: FAMOTIDINE 20 MG TAB NG SCH ×2 (09:00→19:58)
[2017-05-08] MEDS: ARTIFICIAL TEARS OPTH OINT 3.5 APPLIC/3.5 GM TUBO EACH EYE SCH ×2 (09:00→19:58)
[2017-05-08] MEDS: INSULIN DETEMIR 100 UNITS/ML VIAL SQ SCH ×2 (09:00→19:58)
[2017-05-08] MEDS: PRAVASTATIN SOD 40 MG TAB PO SCH (09:00)
[2017-05-08] MEDS: GABAPENTIN 300 MG CAP PO SCH (09:00)
[2017-05-08] MEDS: METOPROLOL TARTRATE 25 MG TAB PO SCH ×2 (09:49→19:58)
[2017-05-08] MEDS ORDERED: ceFAZolin INJ 1,000 MG VIAL IV ONE ×2 (10:08→12:00)
--- NOTE | 2017-05-08 10:38 | HHI.GIFU ---
Subjective Remarks Patient laying in bed, seems to be comfortable, nonverbal, NG tube in place no sign of active bleeding Objective Vitals I&O Vital Signs Date Time Temp Pulse Resp B/P (MAP) Pulse Ox O2 Delivery O2 Flow Rate FiO2 05/08/17 07:56 99 40 05/08/17 06:00 100 05/08/17 04:10 100 40 05/08/17 04:00 40 05/08/17 04:00 92 05/08/17 04:00 99.0 92 22 111/68 (82) 100 05/08/17 02:00 80 05/08/17 01:42 99 40 05/08/17 00:00 104 05/08/17 00:00 40 05/08/17 00:00 99.0 104 22 99/58 (72) 100 05/07/17 22:38 99 40 05/07/17 22:00 104 05/07/17 20:40 99 40 05/07/17 20:00 40 05/07/17 20:00 85 05/07/17 20:00 99.6 85 16 126/59 (81) 95 05/07/17 18:01 99 40 05/07/17 18:00 111 05/07/17 16:00 71 05/07/17 16:00 40 05/07/17 16:00 97.5 71 19 125/81 (96) 95 05/07/17 14:00 78 05/07/17 13:00 100 100 05/07/17 12:00 117 05/07/17 12:00 98.8 117 29 177/86 (116) 98 05/07/17 12:00 30 I/O 05/07/17 05/07/17 05/07/17 05/08/17 05/08/17 05/08/17 07:00 15:00 23:00 07:00 15:00 23:00 Intake Total 590 ml 1440 ml 549 ml Output Total 75 ml 3000 ml 40 ml 100 ml Balance 515 ml -3000 ml 1400 ml 449 ml IV Total 220 ml 100 ml Tube Feeding 490 ml 320 ml 149 ml Other 100 ml 900 ml 300 ml Output Urine Total 75 ml 40 ml 100 ml Hemodialysis 3000 ml # Bowel Movements 3 0 0 Laboratory Laboratory Tests Test 05/08/17 03:33 Blood Urea Nitrogen 72 Creatinine 5.97 Random Glucose 141 Albumin 1.4 Calcium Level 7.7 Phosphorus Level 6.3 Sodium Level 140 Potassium Level 5.4 Chloride Level 103 Carbon Dioxide Level 27.7 Anion Gap 9 Estimat Glomerular Filtration Rate 9 Date/Time Source Procedure Growth Status 04/21/17 18:53 Blood Peripheral Aerobic Blood Culture - Final NO GROWTH IN 5 DAYS Complete 04/21/17 18:53 Blood Peripheral Anaerobic Blood Culture - Final NO GROWTH IN 5 DAYS Complete 05/02/17 21:40 Sputum Endotracheal Gram Stain - Final Complete 05/02/17 21:40 Sputum Culture - Final Klebsiella Pneumoniae Complete Physical Exam HEENT: Pupils round and reactive to light; normocephalic; atraumatic; no jaundice. Throat is clear. NECK: Neck is supple, no JVD, no lymphadenopathy. CHEST: Chest is clear to auscultation and percussion. CARDIAC: Regular rate and rhythm with no murmur gallop or rubs. ABDOMEN: Soft, nondistended, nontender; no hepatosplenomegaly; bowel sounds are present in all four quadrants. NG tube in place EXTREMITIES: No clubbing, cyanosis, or edema. SKIN: Normal; no rash; no jaundice. BIOLOGY INTERNSHIP: No focal deficits; arousable but nonverbal Assessment and Plan Plan ASSESSMENT - 71 yo male who presented after fall, found to have SDH and inraparenchymal hemorrhages s/p craniotomy, has trach and vent dependent. GI consulted for PEG tube placement. palliative care following. goals aggressive. d/w daughter Magalie Best and she is agreeable to proceed 05/08/2017 patient nonverbal status post craniotomy, had an upper endoscopy with PEG tube today Findings Patient has gastritis biopsy was done PEG tube was placed without any difficulty 1 g of Ancef was given during the procedure Plan Nothing by mouth for 6 hours then resume tube feeding Continue PPI Monitor [facility]&H Shreyas Oleary MD May 08, 2017 10:38
--- NOTE | 2017-05-08 10:39 | PD.PROCEDR ---
GI Procedure PROCEDURE PERFORMED Upper endoscopy with biopsy and PEG tube placement INDICATION FOR PROCEDURE Dysphagia PROCEDURE: The procedure, risks and benefits were discussed with Mr. Hope and informed consent was obtained. Anesthesia sedated him with Diprivan. He was placed in the left lateral decubitus position. EGD: The Pentax videoscope was introduced through the oropharynx and advanced to the second portion of the duodenum under direct visualization. Retroflexion was performed in the stomach. Biopsy from the antrum was performed, the area for the PEG tube was identified in the left upper quadrant from sterilized with Betadine, injected with lidocaine, a guidewire was placed through the catheter that was inserted in the abdominal wall and a guidewire was retrieved with a snare and then a 20 [employer] Microvasive PEG tube was placed with a pull technique without any immediate complication, verification of the placement of the PEG tube was done at the end of the case Findings Patient has gastritis biopsy was done PEG tube was placed without any difficulty 1 g of Ancef was given during the procedure Plan Nothing by mouth for 6 hours then resume tube feeding Continue PPI Monitor H&H Shreyas Oleary MD May 08, 2017 10:39
--- NOTE | 2017-05-08 11:56 | HHI.NSPN ---
(Lacho Lacey Betsey JOSEPH) History Chief Complaint: Unable to obtain due to patient's clinical condition. (Lacho Lacey SUPERVISOR DIAGNOSTIC) Interval History 04/12: Mr. Hope is a 71-year-old male who presented to the emergency room today after he fell at home in the presence of his daughter. She states that he lost his balance while trying to put some close on, and fell and struck his head. There was no loss of consciousness. No seizure activity or nausea or emesis reported. The patient has baseline dementia and confusion, but no definite overall change in his mentation after the fall earlier today, according to his daughter, who he lives with. He presently has no complaint of headache. He does have some chronic neck and back pain. 04/13: The patient was examined in the presence of the family today and a more detailed history has been obtained. They indicate chronic progressive dementia to the point that the patient has had to move in with his daughter earlier this year. He cannot care for himself. He is usually quite confused, conversing with only a few words or short sentences and unable to stay on task with conversations. He is usually very active, fidgeting constantly. They state that his mental status today is not significantly changed from his overall baseline. He did go to the emergency room a couple of weeks ago at [facility] due to some pressure sensation or frontal headaches and was diagnosed with sinus congestion. A CT scan of the head was not obtained. He has had no definite falls over the past few weeks up until yesterday. 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 Post-operatively he returned to [facility] for further care and monitoring. 04/15: This morning the patient is obtunded and has no sedation infusing. He does withdraw to noxious stimulation. He does not open his eyes but does have facial grimacing and turns his head to noxious stimulation. ADDENDUM at 1854: Patient was sedated with propofol 50 mcg/kg/min when seen, the pump was not visible at the time. BET. 04/16: When seen the patient is obtunded but does have the propofol drip infusing. Nursing reports that he moves all extremities but does become agitated when the propofol is weaned down. He moves all extremities to noxious stimulation when seen but did not follow any commands. 04/17: The patient remains obtunded and continues to be sedated with a propofol drip. He is now on phenylephrine for blood pressure support. He does not respond to commands and only withdraws the lower extremities to noxious stimulation. He does have some facial grimacing but no eye opening to noxious stimulation. He did go emergently late last night/early this morning for a revision of the left frontoparietal craniotomy for evacuation of a recurrent left hemisphere subdural haematoma. 04/18/17: intubated, propofol just turned off, intermittent movement to ext per nursing, not opening eyes. 04/19/17: nursing reports seizures yesterday, repeat CT head stable residual SDH and 5 mm midline shift. Awaiting EEG. 04/20: Patient with right eye partially opened when seen but Nursing just stimulated patient. He remains intubated and mechanically ventilated. He withdraws to noxious stimuli to the lower extremities but not the upper. He does have facial grimacing to noxious stimulation. Nursing reports that overnight KWAME #1 had 170 mL of yellowish drainage. She also says the patient has been off sedation approximately 36 hours. 04/21: The patient was examined in the presence of the family today and a more detailed history has been obtained. They indicate chronic progressive dementia to the point that the patient has had to move in with his daughter earlier this year. He cannot care for himself. He is usually quite confused, conversing with only a few words or short sentences and unable to stay on task with conversations. He is usually very active, fidgeting constantly. They state that his mental status today is not significantly changed from his overall baseline. He did go to the emergency room a couple of weeks ago at [facility] due to some pressure sensation or frontal headaches and was diagnosed with sinus congestion. A CT scan of the head was not obtained. He has had no definite falls over the past few weeks up until yesterday. 04/23: When seen the patient did have his eyes partially opened and he opened them wider to voice. He was moving the left upper and both lower extremities to varying degrees spontaneously. It was questionable if he moved the left lower to command but did move all extremities to noxious stimulation. 04/24: It is difficult to say if the patient was asleep when seen or not. It did appear he had his eyes partially open since Nursing was in the room. He did open them briefly to my voice. He spontaneously moved the left hand some and gripped this practitioner's hand. He moved the lower extremities to command. There was no noted movement of the right upper to noxious stimulation but he did have facial grimacing. 04/25: Patient is sedated but will respond to painful stimulation. 04/26: Patient now extubated and much more alert and responsive. He is not indicating any significant pain complaints. 04/27: This morning the patient's eyes are open. He did squeeze to command with the left hand and had withdrawal of the other extremities to noxious stimulation. He has been extubated but is nonverbal. He has mild respiratory effort on a nasal cannula. 04/28: When seen this morning the patient is lethargic. He did not open his eyes to voice or follow any commands. He did have slight withdrawal of the left upper and both lower extremities to noxious stimulation. He did have facial grimacing to noxious stimulation as well. 04/29: The patient is awake this morning. He is on a nasal cannula. He squeezes with the left hand when a hand is placed in it. He moves both feet to noxious stimulation. He had no movement of the right upper extremity. 04/30: This morning the patient is sitting up in the cardiac chair with his eyes closed. There was no evident eye opening to voice. He was noted to move the left lower extremity spontaneously. He did give a slight squeeze with the left hand to command and appears to have tried to give a thumbs up when asked to. He did move the right lower extremity to noxious stimulation and there was muscle contraction noted to the right forearm to noxious stimulation. 05/01: When seen this morning the patient is intubated and on CPAP. He does not respond to any commands or open his eyes. He does spontaneously move the left upper extremity and both lower to noxious stimulation. There was no response with the right upper. Nursing reports that during the night his systolic blood pressure dropped into the 70s, his respirations were in the 30s and he was tachycardiac in the 130s. He was therefore emergently intubated. He was given three litres of intravenous fluids and his systolic blood pressure improved. 05/02: The patient is seen moving both lower extremities spontaneously. He remains intubated and mechanically ventilated. He is not on any sedation. His daughter is present and states that he did open his eyes briefly to her voice and that he was squeezing her hand. He did squeeze this practitioner's hand to command and moved both lower extremities to noxious stimulation. There was no movement of the right upper. 05/03: The patient is lethargic when seen. He does not have any sedation infusing. He remains intubated but is on CPAP. He does spontaneously move the lower extremities but is not following any commands. He did move his extremities to noxious stimulation as well as have facial grimacing. 05/04: This morning the patient is lethargic when seen. He continues to be intubated and is now mechanically ventilated. He does squeeze twice with the left hand and moves all extremities to noxious stimulation. He is not on any sedation. 05/05: When seen the patient is lethargic. He remains intubated and on PCV settings. He opened his eyes to voice. There was some questionable movement of the feet to command but he did withdraw the lower extremities to noxious stimulation. He didn't follow commands with the left upper but did have some movement with noxious stimulation. 05/06: The patient is seen moving both lower extremities spontaneously this morning. He does not appear to follow commands but has a strong withdrawal response with the lower extremities to noxious stimulation. The left upper response is weak. No response with the right upper. Nursing reports that Palliative Care spoke with the family and they want to continue aggressive care measures at present to include dialysis. 05/07: Dialysis is at the bedside when the patient was seen this morning. The [facility] placed a temporary haemodialysis catheter late yesterday afternoon. The patient still remains lethargic. He is spontaneously moving the lower extremities as well as to noxious stimulation. He does move the left upper to noxious stimulation. With noxious stimulation to the right upper the patient pulls both knees up strongly. 05/08: The patient is lethargic when seen. He does not have any sedation infusing. He was trached yesterday and remains mechanically ventilated. He had a PEG tube placed this morning prior to being seen. He was seen spontaneously moving both feet. He did have withdrawal of the lower extremities to local noxious stimulation but extension with central. There was no response to any stimulation with the upper extremities. (Lacho Lacey) System Review Comments Unable to obtain due to patient's clinical condition. (Lacho Lacey) Exam Results 05/06/17 05/06/17 05/07/17 05/07/17 05/08/17 05/08/17 06:00 18:00 06:00 18:00 06:00 18:00 Intake Total 2073 ml 1125 ml 690 ml 1220 ml 769 ml Output Total 125 ml 75 ml 1575 ml 3040 ml 100 ml Balance 1948 ml 1050 ml -885 ml -1820 ml 669 ml IV Total 1040 ml 1125 ml 100 ml 320 ml Tube Feeding 533 ml 490 ml 320 ml 149 ml Other 500 ml 100 ml 900 ml 300 ml Output Urine Total 125 ml 75 ml 75 ml 40 ml 100 ml Hemodialysis 1500 ml 3000 ml # Bowel Movements 3 3 0 0 Vital Signs Date Time Temp Pulse Resp B/P (MAP) Pulse Ox O2 Delivery O2 Flow Rate FiO2 05/08/17 11:15 97 40 05/08/17 07:56 99 40 05/08/17 06:00 100 05/08/17 04:10 100 40 05/08/17 04:00 40 05/08/17 04:00 92 05/08/17 04:00 99.0 92 22 111/68 (82) 100 05/08/17 02:00 80 05/08/17 01:42 99 40 05/08/17 00:00 104 05/08/17 00:00 40 05/08/17 00:00 99.0 104 22 99/58 (72) 100 05/07/17 22:38 99 40 05/07/17 22:00 104 05/07/17 20:40 99 40 05/07/17 20:00 40 05/07/17 20:00 85 05/07/17 20:00 99.6 85 16 126/59 (81) 95 05/07/17 18:01 99 40 05/07/17 18:00 111 05/07/17 16:00 71 05/07/17 16:00 40 05/07/17 16:00 97.5 71 19 125/81 (96) 95 05/07/17 14:00 78 05/07/17 13:00 100 100 05/07/17 12:00 117 05/07/17 12:00 98.8 117 29 177/86 (116) 98 05/07/17 12:00 30 05/07/17 10:00 112 05/07/17 09:35 97 30 05/07/17 08:00 98.6 100 18 124/65 (84) 97 05/07/17 08:00 100 05/07/17 08:00 30 05/07/17 06:00 78 05/07/17 04:06 98 30 05/07/17 04:00 30 05/07/17 04:00 98.8 108 19 127/81 (96) 97 05/07/17 04:00 108 05/07/17 02:00 94 05/07/17 00:00 88 05/07/17 00:00 30 05/07/17 00:00 98.6 88 19 124/67 (86) 96 05/07/17 00:00 96 30 05/06/17 22:00 96 05/06/17 21:04 98 30 05/06/17 20:00 98.7 96 16 117/64 (81) 99 05/06/17 20:00 30 05/06/17 20:00 96 05/06/17 18:00 91 05/06/17 16:00 90 05/06/17 16:00 98.2 88 18 143/72 (95) 98 05/06/17 16:00 35 05/06/17 15:56 98 35 05/06/17 14:00 89 05/06/17 12:00 98.4 88 16 133/74 (93) 100 05/06/17 12:00 88 05/06/17 12:00 35 05/06/17 11:17 100 35 05/06/17 10:00 77 05/06/17 08:58 100 35 05/06/17 08:00 71 05/06/17 08:00 98.7 70 16 117/71 (86) 100 05/06/17 08:00 35 05/06/17 06:00 100 05/06/17 04:08 98 35 05/06/17 04:00 35 05/06/17 04:00 94 05/06/17 04:00 98.2 94 20 136/89 (105) 98 05/06/17 02:00 76 05/06/17 00:45 96 35 05/06/17 00:00 35 05/06/17 00:00 98.2 100 23 148/82 (104) 97 05/06/17 00:00 100 05/05/17 22:00 88 05/05/17 20:43 100 35 05/05/17 20:00 88 05/05/17 20:00 35 05/05/17 20:00 98.2 88 16 125/60 (81) 99 05/05/17 18:00 112 05/05/17 16:00 113 05/05/17 16:00 35 05/05/17 16:00 99.9 113 18 118/74 (89) 100 05/05/17 16:00 94 35 05/05/17 14:00 93 05/05/17 12:10 99 35 05/05/17 12:00 35 05/05/17 12:00 90 05/05/17 12:00 99.3 90 17 121/69 (86) 100 (Lacho Lacey) Physical Examination GENERAL: Lethargic, no sedation infusing, no apparent distress. Trached and mechanically ventilated. HEENT: Left craniotomy surgical incision well approximated, some crusting still present, no evident drainage, erythema or streaking. Pupils 2 mm sluggish. Orally intubated. NGT left nare. Healing erosion of the philtrum. MUSCULOSKELETAL: No clubbing or deformity evident. Move feet spontaneously. Moves BLE to noxious stimulation. NEUROLOGICAL: Lethargic, w/o any sedation infusing. No eye opening to voice. Pupils 2 mm sluggish. Nonverbal, intubated. Facial grimacing to noxious stimulation. Moving both feet spontaneously, left more so. Moved LLE>RLE to local noxious stimulation. No movement of BUE to local noxious stimulation. Extension of BLE to central noxious stimulation, no movement with BUE. Trace muscle movement w/left hand when this practitioner's hand is placed in his palm but none with just a finger placed in his palm. (Lacho Lacey) Lab, Micro, Other Results Recent Impressions Chest X-Ray 05/07/17 0000 Signed Impressions: Service Date/Time: April 14:05 - CONCLUSION: Tracheostomy tube now in place. No other significant interval change. David Meade MD Chest X-Ray 05/06/17 0000 Signed Impressions: Service Date/Time: Saturday, May 06, 2017 17:44 - CONCLUSION: 1. Right IJ dialysis type catheter with the tip projecting over the central venous system. No pneumothorax. 2. Endotracheal and nasogastric tubes are unchanged in position. 3. Developing right basilar consolidation/effusion. Andrew Morales MD Laboratory Tests Test 05/05/17 14:14 05/05/17 21:43 05/06/17 04:34 05/06/17 16:25 Blood Urea Nitrogen 101 MG/DL 109 MG/DL 113 MG/DL Creatinine 6.37 MG/DL 7.09 MG/DL 7.51 MG/DL Random Glucose 95 MG/DL 205 MG/DL 147 MG/DL Albumin 1.5 GM/DL 1.6 GM/DL Calcium Level 7.7 MG/DL 8.1 MG/DL 7.8 MG/DL Phosphorus Level 8.3 MG/DL 8.2 MG/DL Sodium Level 146 MEQ/L 140 MEQ/L 143 MEQ/L Potassium Level 5.7 MEQ/L 5.7 MEQ/L 6.3 MEQ/L Chloride Level 113 MEQ/L 106 MEQ/L 108 MEQ/L Carbon Dioxide Level 20.7 MEQ/L 19.8 MEQ/L 22.8 MEQ/L Anion Gap 12 MEQ/L 14 MEQ/L 12 MEQ/L Estimat Glomerular Filtration Rate 9 ML/MIN 8 ML/MIN 7 ML/MIN Urine Eosinophils NONE SEEN /HPF Urine Random Sodium 144 MEQ/L Serum Osmolality 349 MOSM/KG Test 05/07/17 04:35 05/08/17 03:33 White Blood Count 9.8 TH/MM3 Red Blood Count 3.53 MIL/MM3 Hemoglobin 9.8 GM/DL Hematocrit 29.3 % Mean Corpuscular Volume 82.8 FL Mean Corpuscular Hemoglobin 27.7 PG Mean Corpuscular Hemoglobin Concent 33.4 % Red Cell Distribution Width 15.9 % Platelet Count 374 TH/MM3 Mean Platelet Volume 8.1 FL Blood Urea Nitrogen 93 MG/DL 72 MG/DL Creatinine 6.83 MG/DL 5.97 MG/DL Random Glucose 139 MG/DL 141 MG/DL Albumin 1.6 GM/DL 1.4 GM/DL Calcium Level 8.0 MG/DL 7.7 MG/DL Phosphorus Level 7.4 MG/DL 6.3 MG/DL Sodium Level 142 MEQ/L 140 MEQ/L Potassium Level 5.5 MEQ/L 5.4 MEQ/L Chloride Level 106 MEQ/L 103 MEQ/L Carbon Dioxide Level 25.0 MEQ/L 27.7 MEQ/L Anion Gap 11 MEQ/L 9 MEQ/L Estimat Glomerular Filtration Rate 8 ML/MIN 9 ML/MIN Hepatitis A IgM Antibody NEGATIVE Hepatitis B Surface Antigen NEGATIVE Hepatitis B Core IgM Antibody NEGATIVE Hepatitis C Antibody NEGATIVE (Lacho Lacey) Medical Decision Making Impression and Plan Impression: 1. 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 Dementia 4. Cardiac murmur Patient lethargic, moves BLE to noxious stimulation, moves both feet spontaneously. Afebrile past 24 hours. Reviewed labs for today. Sodium 140. Hyperkalemia essentially stable. Hyperphosphataemia w/interval improvement. Interval improvement in renal function. CT brain demonstrated improvement in the left frontal subdural haematoma and chronic hygromas, no haemorrhage or mass effect. EEG consistent w/severe encephalopathy. KWAME #1 was removed . KWAME #2 removed . POD #24 () s/p: Left frontoparietal craniotomy for evacuation of subacute on chronic subdural hematoma Postoperative Diagnosis: (1) Subdural hematoma, chronic (2) Acute subdural hematoma 1. Left hemisphere subacute on chronic subdural hematoma 2. Acute right frontal subdural hematoma POD #21 () s/p: Revision left frontoparietal craniotomy evacuation of recurrent left hemisphere subdural hematoma Postoperative Diagnosis: (1) Acute subdural hematoma Recurrent left hemisphere subdural hematoma Plan: Primary management per [facility]. Neuro checks. Repeat CT brain for any decline in neuro status. Mechanical DVT prophylaxis. Hold pharmacologic DVT prophylaxis. Stress ulcer prophylaxis. (Lacho Lacey) Attending Statement The exam, history, and the medical decision-making described in the above note were completed with the assistance of the mid-level provider. I reviewed and agree with the findings presented. I attest that I had a [id number] encounter with the patient on the same day, and personally performed and documented my assessment and findings in the medical record. On examination 05/08/2017 patient has mild to moderate brief eye opening to voice and sternal rub. Mild to moderate agitation when stimulated. Moderate somewhat disconjugate oculocephalic movements. Pronounced grimacing to deep pain Moves upper and lower extremities when stimulated. Moderate bilateral grasp not to command Palliative care reviewed. Family desires continued full care at this point. Uncertain whether he will require dialysis. Tracheostomy and PEG tube in place He will require long-term placement. (Sylvester Odom MD) Lacho Lacey May 08, 2017 11:56 Sylvester Odom MD May 08, 2017 19:47
[2017-05-08] MEDS ORDERED: ROCURONIUM INJ 50 MG/5 ML SYRINGE IV PUSH ONE (12:00)
[2017-05-08] MEDS ORDERED: PROPOFOL 200 MG/20 ML AMP IV ONE (12:00)
[2017-05-08] MEDS: MORPHINE SULFATE 4 MG/ML INJ IV PUSH PRN ×2 (12:58→23:05)
[2017-05-08] MEDS ORDERED: FUROSEMIDE 40 MG/4 ML VIAL IV PUSH ONE (16:30)
--- NOTE | 2017-05-08 16:37 | HHI.NPPN ---
Subjective History of Present Illness This patient is a 71-year-old male who unfortunately cannot provide any history at this time secondary to change in mental status and he is intubated on ventilatory support currently. Apparently the patient sustained a head injury and was admitted to this institution on April 12, 2017. Imaging studies reveal bilateral subdural hematoma. Patient also said to have a history of dementia, diabetes mellitus as well as COPD. His creatinine level was noted to have been 1.08 on May 02, 2016 subsequently deteriorating progressively thereafter it will level of 6.37 today with a potassium of 5.7. Patient also felt to have diabetes insipidus and has been receiving DDAVP. More recently however the patient has become oliguric. Critical care believes that the patient has a poor prognosis and family has been communicating with palliative care with considerations for a DNR CODE STATUS and possible hospice. No decision has been made as yet regarding dialytic support. Interval History Pt s/p trach & PEG. Lethargic today, and not arousable. (Stacie Amado) Review of Systems General General Remarks Unable to obtain (Stacie Amado) Objective Data Data Vital Signs Date Time Temp Pulse Resp B/P (MAP) Pulse Ox O2 Delivery O2 Flow Rate FiO2 05/08/17 16:15 40 05/08/17 16:14 100 40 05/08/17 11:15 97 40 05/08/17 07:56 99 40 05/08/17 06:00 100 05/08/17 04:10 100 40 05/08/17 04:00 40 05/08/17 04:00 92 05/08/17 04:00 99.0 92 22 111/68 (82) 100 05/08/17 02:00 80 05/08/17 01:42 99 40 05/08/17 00:00 104 05/08/17 00:00 40 05/08/17 00:00 99.0 104 22 99/58 (72) 100 05/07/17 22:38 99 40 05/07/17 22:00 104 05/07/17 20:40 99 40 05/07/17 20:00 40 05/07/17 20:00 85 05/07/17 20:00 99.6 85 16 126/59 (81) 95 05/07/17 18:01 99 40 05/07/17 18:00 111 (Stacie Amado) -: 05/07/17 0435 05/08/17 0333 Imaging Last Impressions Chest X-Ray 05/07/17 0000 Signed Impressions: Service Date/Time: April 14:05 - CONCLUSION: Tracheostomy tube now in place. No other significant interval change. David Meade MD Renal Ultrasound 05/05/17 0000 Signed Impressions: Service Date/Time: Friday, May 05, 2017 20:08 - CONCLUSION: 1. Mild hydronephrosis. Echogenic kidneys characteristic of mild medical renal disease. Lalo Loo MD Head CT 05/01/17926 Signed Impressions: Service Date/Time: Monday, May 01, 2017 11:52 - CONCLUSION: 1. Mild interval improvement in left subdural hematoma. 2. 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 3. No new hemorrhage or mass effect. Simon Haley MD Upper Extremity Ultrasound 04/25/17 0000 Signed Impressions: Service Date/Time: Tuesday, April 25, 2017 11:44 - CONCLUSION: No evidence of right upper extremity DVT. David Meade MD Cervical Spine CT 04/12/17 0000 Signed Impressions: Service Date/Time: Wednesday, April 12, 2017 17:36 - CONCLUSION: Degenerative spondylosis without any significant compromise to the thecal sac or the exiting nerve roots. Maria Guadalupe Alvarado MD Tubes & Lines: Vas-Cath, Munoz Medication Review Current Medications Medications (Trade) Dose Ordered Sig/Ashli Route Start Time Stop Time Status Last Admin (Keppra) 500 mg Q12HR PO 04/12/17 21:00 Future Hold 04/14/17 09:56 (Aricept) 10 mg HS PO 04/12/17 21:00 Future Hold 04/17/17 21:48 (Pravachol) 40 mg DAILY PO 04/13/17 09:00 05/06/17 10:15 (Zoloft) 150 mg DAILY PO 04/13/17 09:00 Future Hold 04/18/17 09:11 (Desyrel) 100 mg HS PO 04/12/17 21:00 Future Hold 04/13/17 20:18 (NS Flush) 2 ml UNSCH PRN IV FLUSH 04/12/17 20:30 (NS Flush) 2 ml BID IV FLUSH 04/12/17 21:00 05/07/17 21:02 (Zofran Inj) 4 mg Q6H PRN IV PUSH 04/12/17 20:30 04/14/17 03:35 Miscellaneous Information 1 Q361D XX 04/12/17 20:30 (Chlorhexidine 2% Cloth) Taper DAILY@04 TOP 04/13/17 04:00 04/09/18 03:59 (Chlorhexidine 2% Cloth) 3 pack UNSCH PRN TOP 04/12/17 20:30 (Julia-Colace) 1 tab BID PO 04/12/17 21:00 05/05/17 20:08 (Milk Of Magnesia Liq) 30 ml Q12H PRN PO 04/12/17 20:30 (Senokot) 17.2 mg Q12H PRN PO 04/12/17 20:30 (Dulcolax Supp) 10 mg DAILY PRN RECTAL 04/12/17 20:30 05/03/17 09:12 (Lactulose Liq) 30 ml DAILY PRN PO 04/12/17 20:30 (Apresoline Inj) 20 mg Q4H PRN IV PUSH 04/14/17 12:30 05/02/17 15:39 (Lopressor) 12.5 mg Q12HR PO 04/19/17 09:00 Future hold 05/08/17 09:49 (Pill Splitter) 1 ea UNSCH PRN OTHER 04/19/17 09:00 (Sodium Chloride) 2 gm DAILY NG 04/19/17 14:00 Future Hold (NovoLOG SUPPLEMENTAL SCALE) 1 Q6HR SQ 04/21/17 18:00 05/07/17 06:00 (D50w (Vial) Inj) 25 ml UNSCH PRN IV 04/21/17 14:15 04/23/17 05:22 (Glucagon Inj) 1 mg UNSCH PRN IM/SQ 04/21/17 14:15 (Cathflo Activase Inj) 2 mg Q2H PRN INTRACATH 04/21/17 14:15 04/22/17 03:39 (Levemir Inj) 20 units Q12HR SQ 04/24/17 21:00 05/07/17 21:00 (Free Water) 300 ml Q4HR G-TUBE 04/29/17 12:00 05/07/17 20:00 (Tylenol 650 Mg/ 20 ml Liq) 650 mg Q6H PRN NG 04/30/17 09:45 05/06/17 01:49 (Albuterol Neb) 2.5 mg Q2HR NEB PRN NEB 04/30/17 09:45 (Lacrilube Opht Oint) 1 applic Q12HR EACH EYE 04/30/17 21:00 05/07/17 21:02 (Magic Mouthwash Adult Liq) 10 ml Q6H PRN SWISH-SPIT 05/02/17 15:45 05/03/17 09:09 (Pepcid) 10 mg BID NG 05/03/17 21:00 05/07/17 21:03 Ceftriaxone Sodium 1000 mg/ Sodium Chloride 100 ml @ 200 mls/hr Q12H IV 05/03/17 18:00 05/08/17 05:06 (Neurontin) 300 mg DAILY PO 05/05/17 09:00 05/06/17 10:09 Sodium Bicarbonate 75 meq/Sodium Chloride 1,075 ml @ 125 mls/hr Q8H36M IV 05/05/17 20:00 Future Hold 05/06/17 21:48 Sodium Chloride 1,000 ml @ 0 mls/hr Q0M PRN OTHER 05/06/17 15:20 05/07/17 11:30 Sodium Chloride 1,000 ml @ 200 mls/hr Q5H PRN IV 05/06/17 15:20 Sodium Chloride 1,000 ml @ 0 mls/hr Q0M PRN OTHER 05/06/17 15:20 (Mannitol Inj) 12.5 gm UNSCH PRN IV 05/06/17 15:30 Albumin Human 100 ml @ 60 mls/hr UNSCH PRN IV 05/06/17 15:30 (NS Flush) 5 ml UNSCH PRN IV FLUSH 05/06/17 15:30 (Heparin Inj) UNSCH PRN .XX 05/06/17 15:30 05/07/17 11:30 (Gentamicin (Dialysis) Inj) 20 mg UNSCH PRN OTHER 05/06/17 15:30 05/07/17 11:30 (Zofran Inj) 4 mg UNSCH PRN IV PUSH 05/06/17 15:30 (Tylenol) 650 mg UNSCH PRN PO 05/06/17 15:30 (Benadryl) 25 mg UNSCH PRN PO 05/06/17 15:30 (Nitrostat Sl) 0.4 mg UNSCH PRN SL 05/06/17 15:30 (Catapres) 0.1 mg UNSCH PRN PO 05/06/17 15:30 (Gelfoam 12 Mm/7 Mm Top) 1 foam UNSCH PRN TOP 05/06/17 15:30 (Morphine Inj) 4 mg Q3H PRN IV PUSH 05/07/17 14:30 05/07/17 21:18 (Detrol) 2 mg BID PO 05/07/17 21:00 05/07/17 21:02 (Stacie Amado) Physical Exam General Appearance: Comfortable (Stacie Amado) Pulmonary Resp Exam: Diminished Breath Sounds (Stacie Amado) Cardiology CV Exam: Regular, Murmur (Stacie Amado) Gastrointestinal/Abdomen GI Exam: Soft, Non-Tender (Stacie Amado) Genitourinary Exam: Sediment (Urine in bag bloody but clear) (Stacie Amado) Extremeties Extremities Exam: Trace Edema, Pitting Edema (significant in BUE with trace in LEs.) (Stacie Amado) Neurologic Neuro Exam: Sedated (Stacie Amado) Assessment/Plan Problem List: (1) Acute kidney insufficiency ICD Codes: N28.9 - Disorder of kidney and ureter, unspecified Status: Acute Plan: Etiology of the patient's acute renal insufficiency is not entirely clear. Noted mild hydronephrosis bilateral kidneys. Would appreciate if Dr. Woods would be reconsulted for opinion as worrisome for obstructive uropathy. Consult placed. Volume status improving with HD. No signs of renal recovery at this point. Will continue TTS schedule for the present for HD. Mild hyperkalemia today. Will given dose of Bumex today I believe that this patient is a poor long-term dialysis candidate as discussed with the daughter but hopefully renal recovery will occur. If not I believe further discussion would be indicated regarding patient's quality of life and continuance of dialysis. Medications should be adjusted for the patient's estimated GFR if clinically indicated. Avoid agents with significant potential for nephrotoxicity possible including NSAIDs for analgesia, iodine contrast agents. Gadolinium is contraindicated if the GFR is below 30. (2) Metabolic acidosis ICD Codes: E87.2 - Acidosis Status: Acute Plan: Will correct with HD. Related to renal failure (3) Hyperkalemia ICD Codes: E87.5 - Hyperkalemia Status: Acute Plan: As above. Will given Bumex tonight (4) Cranial diabetes insipidus ICD Codes: E23.2 - Diabetes insipidus Plan: Patient currently oliguric. (5) Subdural hematoma ICD Codes: I62.00 - Nontraumatic subdural hemorrhage, unspecified (Stacie Amado) Plan The exam, history, and the medical decision-making described in the above note were completed with the assistance of the PA-C. I reviewed and agree with the findings presented. I attest that I had a [id number] encounter with the patient on the same day, and personally performed and documented my assessment and findings in the medical record. (Pedro Lala MD) Stacie Amado May 08, 2017 16:37 Pedro Lala MD May 09, 2017 16:39
--- NOTE | 2017-05-08 17:46 | HHI.HCPN ---
Reason for visit a. To assist with evaluation and management of symptoms including: dyspnea, pain, encephalopathy b. To assist medical decision maker(s) with: better understanding of current medical conditions; weighing benefits/burdens of medical treatment options; making medical treatment decisions. . . Subjective/Interval History No significant change in status overnight. No noted improvement in neurological status by neurosurgery. Patient grimaces with movement but otherwise unresponsive. PEG tube placed by GI this AM without complication. Gastritis noted and biopsy taken. Highest nursing pain levels over last 24 hours --> #6. Received 4 mg iv morphine at 18:17 and 21:18 on 05/07/17 Bowels moved 05/07/17. Minimal urine output and urine is blood tinged. . . Family/friend interactions Spoke with Maggy-- spokesperson for all the children. I updated her on patient' s status and we spoke about the three procedures -- -- dialysis catheter placement; tracheostomy; PEG tube placement. I spoke about the noted gastritis and biopsy. I indicated that we would continue all modes of life support (ventilator; dialysis) until family told us otherwise or until patient indicated he no longer had a need for these. Answered all questions. Goals remain unchanged -- aggressive. . . Advance Directives Living Will: Copy in medical record Durable Power of Hand Stamper: Copy in medical record (does not include health care decisions. ) Advance Directive Specifics Date completed: 12/16/16 . Health Care Surrogate(s): Patient is not capacitated to make his own health care decisions, will not regain capacity given underlying dementia. Has Living will and POA, neither include designation of healthcare surrogate. Contacted his shell machine operator who reports HCS was never designated. . According to [place] statues, health care proxy decision-making falls to the majority of patient's 4 adult children. . Documented care wishes: Standard living will. . Objective Vital Signs Date Time Temp Pulse Resp B/P (MAP) Pulse Ox O2 Delivery O2 Flow Rate FiO2 05/08/17 16:15 40 05/08/17 16:14 100 40 05/08/17 16:00 40 05/08/17 12:00 40 05/08/17 11:15 97 40 05/08/17 08:00 105 05/08/17 08:00 40 05/08/17 07:56 99 40 05/08/17 06:00 100 05/08/17 04:10 100 40 05/08/17 04:00 40 05/08/17 04:00 92 05/08/17 04:00 99.0 92 22 111/68 (82) 100 05/08/17 02:00 80 05/08/17 01:42 99 40 05/08/17 00:00 104 05/08/17 00:00 40 05/08/17 00:00 99.0 104 22 99/58 (72) 100 05/07/17 22:38 99 40 05/07/17 22:00 104 05/07/17 20:40 99 40 05/07/17 20:00 40 05/07/17 20:00 85 05/07/17 20:00 99.6 85 16 126/59 (81) 95 05/07/17 18:01 99 40 05/07/17 18:00 111 Intake & Output 05/08/17 05/08/17 07:00 19:00 Intake Total 549 ml 100 ml Output Total 100 ml Balance 449 ml 100 ml IV Total 100 ml Tube Feeding 149 ml Other 300 ml 100 ml Output Urine Total 100 ml # Bowel Movements 0 Physical Exam CONSTITUTIONAL/GENERAL: This is an elderly, frail, critically ill patient, off sedation on mechanical ventilation. Sedated -- post tracheostomy. Unable follow commands or indicate yes/no to questions. Grimaces with movement. TUBES/LINES/DRAINS: ,trach; PEG; PIV bilateral, Vasscath right jugular vein; wrist restraints, Munoz, SCD's. SKIN: No jaundice, rashes, or lesions. Ecchymoses on upper extremities. No wounds seen anteriorly. Skin temperature appropriate. Not diaphoretic. HEAD: craniotomy surgical incision healing. ENT: unable to assess hearing given current condition. Trach site healing well. Oral ulcers noted. CARDIOVASCULAR: Regular rate and rhythm, systolic murmur noted right sternal border. RESPIRATORY/CHEST: lungs clear to auscultation. GASTROINTESTINAL: Abdomen soft, nondistended. Bowel sounds present. GENITOURINARY: Without palpable bladder distension. Munoz catheter in place. MUSCULOSKELETAL: Extremities with edema. No mottling or clubbing. NEUROLOGICAL: When extremities are moved he opens eyes briefly and grimaces. Withdraws to noxious stimuli in all extremities except RUE. Does not follow commands. PSYCHIATRIC: Unable to assess due to level of responsiveness. . . Diagnostic Tests Laboratory Laboratory Tests Test 05/05/17 21:43 05/06/17 04:34 05/06/17 16:25 05/07/17 04:35 Urine Eosinophils NONE SEEN /HPF (NONE SEEN) Urine Random Sodium 144 MEQ/L Blood Urea Nitrogen 109 MG/DL (7-18) 113 MG/DL (7-18) 93 MG/DL (7-18) Creatinine 7.09 MG/DL (0.60-1.30) 7.51 MG/DL (0.60-1.30) 6.83 MG/DL (0.60-1.30) Random Glucose 205 MG/DL (74-106) 147 MG/DL (74-106) 139 MG/DL (74-106) Albumin 1.6 GM/DL (3.4-5.0) 1.6 GM/DL (3.4-5.0) Calcium Level 8.1 MG/DL (8.5-10.1) 7.8 MG/DL (8.5-10.1) 8.0 MG/DL (8.5-10.1) Phosphorus Level 8.2 MG/DL (2.5-4.9) 7.4 MG/DL (2.5-4.9) Sodium Level 140 MEQ/L (136-145) 143 MEQ/L (136-145) 142 MEQ/L (136-145) Potassium Level 5.7 MEQ/L (3.5-5.1) 6.3 MEQ/L (3.5-5.1) 5.5 MEQ/L (3.5-5.1) Chloride Level 106 MEQ/L (98-107) 108 MEQ/L (98-107) 106 MEQ/L (98-107) Carbon Dioxide Level 19.8 MEQ/L (21.0-32.0) 22.8 MEQ/L (21.0-32.0) 25.0 MEQ/L (21.0-32.0) Anion Gap 14 MEQ/L (5-15) 12 MEQ/L (5-15) 11 MEQ/L (5-15) Estimat Glomerular Filtration Rate 8 ML/MIN (>89) 7 ML/MIN (>89) 8 ML/MIN (>89) Serum Osmolality 349 MOSM/KG (275-295) White Blood Count 9.8 TH/MM3 (4.0-11.0) Red Blood Count 3.53 MIL/MM3 (4.50-5.90) Hemoglobin 9.8 GM/DL (13.0-17.0) Hematocrit 29.3 % (39.0-51.0) Mean Corpuscular Volume 82.8 FL (80.0-100.0) Mean Corpuscular Hemoglobin 27.7 PG (27.0-34.0) Mean Corpuscular Hemoglobin Concent 33.4 % (32.0-36.0) Red Cell Distribution Width 15.9 % (11.6-17.2) Platelet Count 374 TH/MM3 (150-450) Mean Platelet Volume 8.1 FL (7.0-11.0) Hepatitis A IgM Antibody NEGATIVE (NEGATIVE) Hepatitis B Surface Antigen NEGATIVE (NEGATIVE) Hepatitis B Core IgM Antibody NEGATIVE (NEGATIVE) Hepatitis C Antibody NEGATIVE (NEGATIVE) Test 05/08/17 03:33 Blood Urea Nitrogen 72 MG/DL (7-18) Creatinine 5.97 MG/DL (0.60-1.30) Random Glucose 141 MG/DL (74-106) Albumin 1.4 GM/DL (3.4-5.0) Calcium Level 7.7 MG/DL (8.5-10.1) Phosphorus Level 6.3 MG/DL (2.5-4.9) Sodium Level 140 MEQ/L (136-145) Potassium Level 5.4 MEQ/L (3.5-5.1) Chloride Level 103 MEQ/L (98-107) Carbon Dioxide Level 27.7 MEQ/L (21.0-32.0) Anion Gap 9 MEQ/L (5-15) Estimat Glomerular Filtration Rate 9 ML/MIN (>89) . Result Diagram: 05/07/17 0435 05/08/17 0333 Microbiology Microbiology Date/Time Source Procedure Growth Status 04/21/17 18:53 Blood Peripheral Aerobic Blood Culture - Final NO GROWTH IN 5 DAYS Complete 04/21/17 18:53 Blood Peripheral Anaerobic Blood Culture - Final NO GROWTH IN 5 DAYS Complete 05/02/17 21:40 Sputum Endotracheal Gram Stain - Final Complete 05/02/17 21:40 Sputum Culture - Final Klebsiella Pneumoniae Complete . Imaging Last Impressions Chest X-Ray 05/07/17 0000 Signed Impressions: Service Date/Time: April 14:05 - CONCLUSION: Tracheostomy tube now in place. No other significant interval change. David Meade MD Renal Ultrasound 05/05/17 0000 Signed Impressions: Service Date/Time: Friday, May 05, 2017 20:08 - CONCLUSION: 1. Mild hydronephrosis. Echogenic kidneys characteristic of mild medical renal disease. Lalo Loo MD Head CT 05/01/17 0927 Signed Impressions: Service Date/Time: Monday, May 01, 2017 11:52 - CONCLUSION: 1. Mild interval improvement in left subdural hematoma. 2. 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 3. No new hemorrhage or mass effect. Simon Haley MD Upper Extremity Ultrasound 04/25/17 0000 Signed Impressions: Service Date/Time: Tuesday, April 25, 2017 11:44 - CONCLUSION: No evidence of right upper extremity DVT. David Meade MD Cervical Spine CT 04/12/17 0000 Signed Impressions: Service Date/Time: Wednesday, April 12, 2017 17:36 - CONCLUSION: Degenerative spondylosis without any significant compromise to the thecal sac or the exiting nerve roots. Maria Guadalupe Alvarado MD . Procedures * PEG tube placement 05/08/17 * Tracheostomy 05/07/17 * 05/06/17 --dialysis catheter placed * 05/01/17 - reintubated * 04/26/17 - extubated * 04/19/17 - right subclavian central line placed * 04/17/17 - revision of left frontoparietal craniotomy evacuation of recurrent left hemisphere subdural hematoma notes indicate findings of moderate densely clotted acute recurrent left hemisphere subdural hematoma primarily in the frontal region. 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 . Assessment and Plan Disease Oriented Problem List: (1) Intracranial hemorrhage (2) Pneumonia Comment: Cutluring Klebsiella (3) Aortic stenosis Comment: Echocardiogram describes this as "severe" aortic stenosis. . (4) Hypoalbuminemia (5) Dementia (6) Acute kidney injury Comment: Worsening. Nephrology involved. VasCath placed right jugular and hemodialysis started. Cause of the kidney injury unclear -- obstruction? sepsis ? . (7) Anemia Symptom Scale: (1) Pain 0-10 Scale: Unable to quantify Comment: No known prior pain syndromes. Patient unable to quantify or qualify pain. Furrowed brow/grimacing, appears painful to minimal stimulation, likely secondary to recent surgeries, confusion, tubes, oral ulcerations, peripheral neuropathy, general debility and bedbound status. . (2) Encephalopathy 0-10 Scale: Unable to quantify Comment: likely to underlying dementia, subdural hematomas, surgery, worsening renal function. . (3) Dyspnea 0-10 Scale: Unable to quantify Comment: Remains on mechanical ventilation Pertinent Non-Medical Issues Psychosocial: . Has 4 adult children (Maggy, Magalie, Dale and Hua). Lives with daughter Maggy in [place]. Spiritual: unknown. Legal: : Patient is not capacitated to make his own health care decisions, will not regain capacity given underlying dementia. Has Living will and POA, neither include designation of healthcare surrogate. Contacted his shell machine operator who reports HCS was never designated. . According to [place] statues, health care proxy decision-making falls to the majority of patient's 4 adult children. Ethical issues impacting care: no known concerns at this time. . Important Contacts * Maggy Saleh, daughter: [phone] lives with patient in [place] * Magalie Best, daughter: [phone] lives in [place] * Dale, son: lives in [place]: [phone] * Hua, son: lives in [place]: [phone] . Prognosis Mr. Hope is a 71-year-old male with multiple medical comorbidities including COPD, dementia, diabetes, severe aortic stenosis. He has had ongoing trajectory of decline in the months leading up to hospitalization, admitted with bilateral subdural hematoma's, parafalcine subdural hematoma, left frontal and temporal lobe intraparenchymal hemorrhages status post surgery without evidence of neurologic improvement. Unable to be weaned from mechanical ventilation, worsening renal function (now on hemodialysis) and pneumonia. Low albumin. Patient is at high risk of hospital . Should he survive the hospital , will likely be bed/chair bound in [facility] setting dependent for all ADLs. Patient would be a candidate for hospice care at such time that legal decision makers feel the patient would want to transition to "comfort measures only." . Code Status: Full Code Plan ==Decision Maker: Patient is not capacitated to make his own health care decisions. At this point there is no reasonable probability that he will regain capacity given underlying dementia. Has Living will and POA, neither include designation of healthcare surrogate. Contacted his shell machine operator who reports HCS was never designated. . According to [place] statues, health care proxy decision-making falls to the majority of patient's 4 adult children. Though all 4 children want to participate and are equal decision makers, they have opted to have daughter Maggy Saleh ([phone]) serve as the spokesperson and "consent-signer" for them. ==FULL CODE ==Goals of medical treatment: Per family conference call of 05/06/17 all children agree that in spite of current condition and minimal chance of meaningful recovery the patient would want ongoing aggressive care including trach/PEG/dialysis/ and resuscitation attempts. Family seems intent on giving patient many weeks to see if he is able to show signs of meaningful neuro improvement. However, they may reconsider if there is another major setback -- e.g. new intracranial bleed; OR; stroke; inability to tolerate dialysis; etc. ==SYMPTOMS: * Pain: Comfortable appearing at rest when left alone. Appears painful ( grimacing) to minimal stimulation such as any movement of his extremities. Pain likely secondary to recent procedures; oral ulcerations, peripheral neuropathy, general debility and bedbound status. On gabapentin. Using occasional morphine for higher pain levels. Recommend scheduled acetaminophen. * Dyspnea: Patient with underlying copd and now with pneumonia. Dyspnea currently being managed with mechanical ventilation, nebs. Hopefully, tracheostomy might allow for more successful attempt at vent weaning. No further recommendations at this time. * Encephalopathy: likely due to underlying dementia complicated by subdural hematomas, surgery, worsening renal function. No new medication recommendations at this time. ==Palliative care will continue to follow to assist with symptom management and to further clarify goals of medical treatment as the clinical course evolves. . Attestation To help prompt me to consider important information that might be impacting today's encounter and assessment, information from prior notes written by myself or my colleagues may have been "brought forward" into today's note. My signature on this note, however, is an attestation that I personally performed the exam, history, and/or decision-making noted today, and, unless otherwise indicated, the interactions with patient, family, and staff as well as the review of records all occurred today. I also attest that the listed assessment and stated plan reflect my best clinical judgment today based on the combination of historical information, prior notes, and today's exam/ interactions. When time spent is documented, it refers only to time spent today by the signer, or if indicated, combined time spent today by collaborating physician/nurse practitioner. . Aden Clayton MD May 08, 2017 17:46
--- NOTE | 2017-05-08 18:42 | HHI.CCPN ---
Subjective Remarks/Hospital Course 04/12: 71-year-old male presents for evaluation after he fell hitting his head. Per family report they were in the bathroom trying to change his undergarments when he slipped and fell hitting his head. He is not on anticoagulant. The patient is pleasantly confused and patient's daughter states this is his baseline. He has had no altered mental status since the fall. No vomiting. The patient reports a mild headache without radiation. No neck pain or back pain. He has been ambulatory without difficulty since the fall. The CT head performed in the emergency department shows bilateral subdural hematomas in addition to parafalcine subdural hematoma, left frontal and temporal lobe intraparenchymal hemorrhages and subfalcine herniation from [id number]. 04/13: Resting in bed comfortably at the time of my evaluation this morning. Confused, does not know the year. Knows he is in the hospital. Moves all 4 extremity's. Does not appear to be in any acute distress. 04/14: Afebrile. The patient continues to be confused but easily following commands notable systolic ejection murmur, echo pending. Patient scheduled for neurosurgical intervention this afternoon. 04/15: Tmax 99.3. The patient status post craniotomy with evacuation of subdural hematoma last evening, remained intubated, only on sedation with propofol infusion and requiring low-dose phenylephrine to maintain map greater than 65. Sedation was briefly lightened last evening postoperatively, and the patient was extremely agitated. IV fluids changed from D5W to normal saline with [address] brain performed. INR pending. 04/16: Tmax 99.8 Patient agitated during the night , swinging his legs out of the bed while on maximum doses of propofol infusion, fentanyl infusion low-dose added this a.m. Patient's diet advance will begin tube feeds this a.m. The patient was noted to have multifocal PVCs intermittent during the night potassium level 3.2 currently being repleted with K-Phos. 04/17: Tmax 101.6. The patient underwent emergent craniotomy for evacuation of acute recurrent left subdural hematoma last evening. The patient continues on 3 % normal saline, with serial sodium and osmole is being followed. Currently weaning slowly sedation for neuro assessment. Patient noted to have a significant elevation in WBC count of 22, blood cultures urine cultures and sputum cultures obtained. Chest x-ray now showing bilateral lung opacities edema versus possible infectious process being ruled out. Echo revealed patient has severe aortic stenosis with a roommate mean gradient of 44. The patient continues on phenylephrine for vasopressors support at this time. 04/18: Last evening, the patient went into A. fib RVR, heart rate low 100s, with self resolution. This a.m. the patient continues to have sinus rhythm/sinus tachycardia 90-105 with frequent multifocal PVCs. Electrolytes within normal limits. Given the significant medical history for severe aortic stenosis metoprolol 2.5 mg IV for rapid heart rate instituted. The patient continues on phenylephrine infusion for maintenance of a map greater than 65. Propofol is currently being weaned off. EEG revealed last night severe encephalopathy. No change in neurological status but patient still is under sedation patient withdraws to pain bilateral lower extremities and now has spontaneous eye opening intermittently. Leukocytosis notably is resolving. 04/19: Afebrile. Today afternoon the patient was noted to have a seizure, Ativan 1 mg IV push with resolution EEG ordered. Post seizure the patient was noted to have gross hematuria. Coag studies performed within normal limits, fibrinogen level slightly elevated . Creatinine kinase noted to be within normal limits. Hematuria thought to possibly be secondary to acquired von Willebrand's factor secondary to the shear stress from his severe aortic stenosis. DDAVP 2 mcgs IV 1 dose ordered this a.m.. Patient continues on 3% sodium chloride, phenylephrine has been discontinued. 04/20: Remains sedated, orally intubated on mechanical ventilation. Remains on 3 % saline. Off phenylephrine currently. Blood pressure labile. Tolerating tube feeds. 04/21: Remains sedated, orally intubated on mechanical ventilation. Stopping 3% saline. Tolerating tube feeds 04/22: Remains sedated, orally intubated on mechanical ventilation. On Levophed for pressor support. Spiking temperatures. Started on Zosyn yesterday. Continues to have hematuria. One unit PRBCs and fluid bolus ordered. 04/23: Appears to have developed ADRIANNE from osmotic diuresis associated with poorly controlled diabetes. Hyperglycemia exacerbated by dextrose containing solution. Will start constant carb feedings with glucerna, reduce levemir, add SSI coverage, and hydrate to correct fluid depletion. 04/24: Continued serum concentration associated with free water loss. No improvement in neurological function. Suspect osmotic diuresis from elevated glucose but will check urine specific gravity to rule out DI. 04/25: Osmolality improving. Continue DDAVP prn. 04/26: Alertness much improved after Na corrected. Required DDAVP X 2. Gas exchange acceptable and he is strong on CPAP trial. Right arm edematous, ultrasound with no thrombus. 04/27: Extubated > 24 hours ago and breathing comfortably. Protects airway. Electrolytes normalized. Transfer. 04/28: Tolerating extubation but respiratory rate increased, not labored. Osmolality normalized off of DDAVP. 04/29: more somnolent today, but still awake and following commands. sodium mp from 143 to 147 off DDAVP. will restart free water. ROS unobtainable due to patient's baseline mental status. 3-way contreras persists, less hematuria noted. Cr continues to improve. remains stable for transfer to floor. SUBJECTIVE: 04/30: Currently in room 1319 . Resting in sitting position bed. Currently resting in bed in no acute distress. Contreras catheter remains. 05/01: > 5 liters urine with rising BUN/Creatinine - appears to have slipped back into DI. 05/02: Daughter request Palliative Care consult to assist with decision making re continued aggressive care, trach. 05/03: Intermittent diabetes insipidus causing big problems for kidneys. Episodic diuresis unpredictable and between bouts he develops pulmonary edema. Remains very weak and unable to tolerate vent weaning trials. 05/04: Patient continues to deteriorate. He will not survive this hospitalization. 05/05: No improvement. Renal function deteriorating. 05/06: Kidneys continue to deteriorate. Family has decided to continue with aggressive care. They want us to proceed with trach, PEG, and dialysis. Terminal disease process. 05/07: Family has elected to continue with aggressive care. Need and risks of tracheostomy insertion have been discussed with the daughter. She accepts risks , including bleeding and . 05/08: Trach, PEG in place. Will work toward LTAC placement. Objective Vital Signs Date Time Temp Pulse Resp B/P (MAP) Pulse Ox O2 Delivery O2 Flow Rate FiO2 05/08/17 16:15 40 05/08/17 16:14 100 05/08/17 08:00 105 05/08/17 04:00 99.0 22 111/68 (82) Intake and Output 05/08/17 05/08/17 05/09/17 08:00 16:00 00:00 Intake Total 549 ml 100 ml 300 ml Output Total 100 ml 40 ml Balance 449 ml 100 ml 260 ml Result Diagram: 05/07/17 0435 05/08/17 0333 Imaging Last Impressions Head CT 04/27/17 0000 Signed Impressions: Service Date/Time: Thursday, April 27, 2017 11:04 - CONCLUSION: 1. Interval removal of the patient's subdural drain. There is still a small amount of subdural hemorrhage remaining along the left frontal cortex. The remainder of the hemorrhage along the parietal is no longer identified. Findings were discussed in detail above. Luis Moreno MD Chest X-Ray 04/26/17 0400 Signed Impressions: Service Date/Time: Wednesday, April 26, 2017 04:12 - CONCLUSION: No significant interval change. Zeferino Hewitt MD Upper Extremity Ultrasound 04/25/17 0000 Signed Impressions: Service Date/Time: Tuesday, April 25, 2017 11:44 - CONCLUSION: No evidence of right upper extremity DVT. David Meade MD Cervical Spine CT 04/12/17 0000 Signed Impressions: Service Date/Time: Wednesday, April 12, 2017 17:36 - CONCLUSION: Degenerative spondylosis without any significant compromise to the thecal sac or the exiting nerve roots. Maria Guadalupe Alvarado MD Objective Remarks GENERAL: 71-year-old Elderly gentleman. SKIN: Warm and dry. No rash HEAD: Atraumatic. Normocephalic. EYES: Pupils equal and round 2 mm bilaterally and reactive. No scleral icterus. No injection or drainage. ENT: No nasal bleeding or discharge. Mucous membranes pink and moist. NECK: Trachea midline. Orally intubated. CARDIOVASCULAR: Regular rate and rhythm. NL S1, S2. 2/6 systolic murmur right upper sternal border RESPIRATORY: No wheezing rales or rhonchi, good terese air movement. GASTROINTESTINAL: Abdomen soft, non-tender, nondistended, no guarding. BS active. PEG site clean, minimal serous drainage. : Contreras catheter in place MUSCULOSKELETAL: Extremities without clubbing, cyanosis. Right arm with resolving gross edema. NEUROLOGICAL: Moves 4 limbs weakly. Withdraws to pain in all 4 extremities. Otherwise largely unresponsive. Procedures 1/2-left frontoparietal craniotomy with evacuation of subacute on chronic SDH 04/17-@ 0000 emergent craniotomy with evacuation of acute recurrent left subdural hematoma A/P Assessment and Plan NEURO/PSYCH TBI -Subdural hematoma S/P Left frontoparietal craniotomy with evacuation of subacute on chronic SDH S/P Emergency revision/evacuation of acute recurrent left subdural hematoma Acute encephalopathy- resolving slowly Dementia disorder NOS Depression -Neurosurgery following. Dr. Odom - Neuro checks per protocol - Repeat CT head per neurosurgery-stable acute subdural hematoma within frontal regions, bilateral 5 mm subfalcine herniation to the right - Seizure prophylaxis with levetiracetam has been discontinued GBG discontinued 04/26 - 04/18 EEG-severe encephalopathy avoid long-acting sedating meds continue home gabapentin. 400 mg 3 times a day Trazodone 100 mg at night, sertraline 150 mg daily and donepezil 10 mg a old discontinued secondary QTc prolongation Acetaminophen 650 mg by NG every 6 hours when necessary fever Continuing episodic DI RESP: COPD Acute hypoxic and hypercarbic respiratory failure - resolving. Nasal cannula to maintain saturations greater than equal to 90% Incentive spirometry while awake Albuterol/ipratropium aerosols every 6 hours with albuterol aerosols 2 hours. Dyspnea - Extubated 04/26. - aggressive pulmonary toilet with a cappella/CPAP incentive spirometry - PRVC vent mode 04/30 CV: Severe Hypotension- -resolved. Sinus tachycardia- resolved. Essential hypertension -1/2 EKG prolonged QT 475, continue close monitoring - 04/16 Echo-s Normal left ventricular size. Severe concentric left ventricular hypertrophy. The left ventricular systolic function is low normal with an estimated ejection fraction in the range of 50- 55%. Trace aortic valve regurgitation. Severe aortic valve stenosis. Moderate thickening of the aorticv alve leaflets. Aortic valve mean gradient is 44 mmHg. 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 Woods has followed Neurology recommends replace Contreras catheter with a 18 Chinese coud and irrigate when necessary clots (previously with a 14 Chinese catheter) Continue tolterodine 4 mg by mouth daily for management of bladder spasms Holding trospium 20 mg twice a day ENDO: Diabetes mellitus - improved control. Central Diabetes Insipidus - Hold metformin 500 mg daily/home medication - Insulin sliding scale Novulog -high dose dose regimen, 25 units sliding scale past 24 hours Currently on insulin detemir 20 units twice a day - Unable to get clear urine due to bladder bleed. - Responding well to DDAVP, now stopped 04/28. Currently on free water 300mL po q4h - daily bmp to check sodium - Restart DDAVP ID: Septic shock- resolved. Pneumonia - resolved. Bacteremia- resolved. 04/19-blood cultures-staph intermedius 04/14 sets - contaminant 04/20 - Sputum cultures with e. coli, klebisella. s/p full course of Augie/ tazobactam 04/21 - 04/27. monitor off abx for fever, signs of infection. HEME: Last CBC 04/25. Leukocytosis. Recheck in a.m. 05/01 FEN: Hypernatremia See above treatment plan Continue free water 300 cc every 4 hours. Recheck BMP in a.m. Replace electrolytes as clinically indicated MSK PT evaluate and treat DVT GI prophylaxis - Teds SCDs - No pharmacological DVT prophylaxis due to subdural hematoma - Pepcid BID Overall impression: Family continues to want aggressive care. They understand his chances of survival and return to a meaningful existence are very small. LTAC placement pending. Roland Figueroa MD May 08, 2017 18:42
[2017-05-09] VITALS (15 sets, daily range): BP systolic 107–153; BP diastolic 54–78; PULSE 79–114; RESP 16–21; TEMP 98.4–100.4; O2SAT 97–100
[2017-05-09 01:12] LABS: BICARBONATE 27.7 MEQ/L (21.0-32.0); CALCIUM 8.1 MG/DL (8.5-10.1); CREATININE 7.03 MG/DL (0.60-1.30)
[2017-05-09] MEDS: FREE WATER G-TUBE SCH ×6 (03:45→23:45)
[2017-05-09] MEDS: cefTRIAXone INJ 1,000 MG in SODIUM CHLORIDE 0.9% INJ 100 ML IV SCH ×2 (05:47→17:56)
[2017-05-09] MEDS: INSULIN ASPART SUPPLEMENTAL SCALE SQ SCH ×5 (05:47→23:45)
[2017-05-09 07:00] LABS: ALBUMIN 1.6 GM/DL (3.4-5.0); BICARBONATE 25.5 MEQ/L (21.0-32.0); CALCIUM 8.5 MG/DL (8.5-10.1); CREATININE 7.18 MG/DL (0.60-1.30)
[2017-05-09 07:08] LABS: PHOSPHORUS 7.9 MG/DL (2.5-4.9)
--- NOTE | 2017-05-09 08:35 | HHI.NSPN ---
History Chief Complaint: Unable to obtain due to patient's clinical condition. Interval History 04/12: Mr. Hope is a 71-year-old male who presented to the emergency room today after he fell at home in the presence of his daughter. She states that he lost his balance while trying to put some close on, and fell and struck his head. There was no loss of consciousness. No seizure activity or nausea or emesis reported. The patient has baseline dementia and confusion, but no definite overall change in his mentation after the fall earlier today, according to his daughter, who he lives with. He presently has no complaint of headache. He does have some chronic neck and back pain. 04/13: The patient was examined in the presence of the family today and a more detailed history has been obtained. They indicate chronic progressive dementia to the point that the patient has had to move in with his daughter earlier this year. He cannot care for himself. He is usually quite confused, conversing with only a few words or short sentences and unable to stay on task with conversations. He is usually very active, fidgeting constantly. They state that his mental status today is not significantly changed from his overall baseline. He did go to the emergency room a couple of weeks ago at [facility] due to some pressure sensation or frontal headaches and was diagnosed with sinus congestion. A CT scan of the head was not obtained. He has had no definite falls over the past few weeks up until yesterday. 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 Post-operatively he returned to [facility] for further care and monitoring. 04/15: This morning the patient is obtunded and has no sedation infusing. He does withdraw to noxious stimulation. He does not open his eyes but does have facial grimacing and turns his head to noxious stimulation. ADDENDUM at 1854: Patient was sedated with propofol 50 mcg/kg/min when seen, the pump was not visible at the time. BET. 04/16: When seen the patient is obtunded but does have the propofol drip infusing. Nursing reports that he moves all extremities but does become agitated when the propofol is weaned down. He moves all extremities to noxious stimulation when seen but did not follow any commands. 04/17: The patient remains obtunded and continues to be sedated with a propofol drip. He is now on phenylephrine for blood pressure support. He does not respond to commands and only withdraws the lower extremities to noxious stimulation. He does have some facial grimacing but no eye opening to noxious stimulation. He did go emergently late last night/early this morning for a revision of the left frontoparietal craniotomy for evacuation of a recurrent left hemisphere subdural haematoma. 04/18/17: intubated, propofol just turned off, intermittent movement to ext per nursing, not opening eyes. 04/19/17: nursing reports seizures yesterday, repeat CT head stable residual SDH and 5 mm midline shift. Awaiting EEG. 04/20: Patient with right eye partially opened when seen but Nursing just stimulated patient. He remains intubated and mechanically ventilated. He withdraws to noxious stimuli to the lower extremities but not the upper. He does have facial grimacing to noxious stimulation. Nursing reports that overnight KWAME #1 had 170 mL of yellowish drainage. She also says the patient has been off sedation approximately 36 hours. 04/21: The patient was examined in the presence of the family today and a more detailed history has been obtained. They indicate chronic progressive dementia to the point that the patient has had to move in with his daughter earlier this year. He cannot care for himself. He is usually quite confused, conversing with only a few words or short sentences and unable to stay on task with conversations. He is usually very active, fidgeting constantly. They state that his mental status today is not significantly changed from his overall baseline. He did go to the emergency room a couple of weeks ago at [facility] due to some pressure sensation or frontal headaches and was diagnosed with sinus congestion. A CT scan of the head was not obtained. He has had no definite falls over the past few weeks up until yesterday. 04/23: When seen the patient did have his eyes partially opened and he opened them wider to voice. He was moving the left upper and both lower extremities to varying degrees spontaneously. It was questionable if he moved the left lower to command but did move all extremities to noxious stimulation. 04/24: It is difficult to say if the patient was asleep when seen or not. It did appear he had his eyes partially open since Nursing was in the room. He did open them briefly to my voice. He spontaneously moved the left hand some and gripped this practitioner's hand. He moved the lower extremities to command. There was no noted movement of the right upper to noxious stimulation but he did have facial grimacing. 04/25: Patient is sedated but will respond to painful stimulation. 04/26: Patient now extubated and much more alert and responsive. He is not indicating any significant pain complaints. 04/27: This morning the patient's eyes are open. He did squeeze to command with the left hand and had withdrawal of the other extremities to noxious stimulation. He has been extubated but is nonverbal. He has mild respiratory effort on a nasal cannula. 04/28: When seen this morning the patient is lethargic. He did not open his eyes to voice or follow any commands. He did have slight withdrawal of the left upper and both lower extremities to noxious stimulation. He did have facial grimacing to noxious stimulation as well. 04/29: The patient is awake this morning. He is on a nasal cannula. He squeezes with the left hand when a hand is placed in it. He moves both feet to noxious stimulation. He had no movement of the right upper extremity. 04/30: This morning the patient is sitting up in the cardiac chair with his eyes closed. There was no evident eye opening to voice. He was noted to move the left lower extremity spontaneously. He did give a slight squeeze with the left hand to command and appears to have tried to give a thumbs up when asked to. He did move the right lower extremity to noxious stimulation and there was muscle contraction noted to the right forearm to noxious stimulation. 05/01: When seen this morning the patient is intubated and on CPAP. He does not respond to any commands or open his eyes. He does spontaneously move the left upper extremity and both lower to noxious stimulation. There was no response with the right upper. Nursing reports that during the night his systolic blood pressure dropped into the 70s, his respirations were in the 30s and he was tachycardiac in the 130s. He was therefore emergently intubated. He was given three litres of intravenous fluids and his systolic blood pressure improved. 05/02: The patient is seen moving both lower extremities spontaneously. He remains intubated and mechanically ventilated. He is not on any sedation. His daughter is present and states that he did open his eyes briefly to her voice and that he was squeezing her hand. He did squeeze this practitioner's hand to command and moved both lower extremities to noxious stimulation. There was no movement of the right upper. 05/03: The patient is lethargic when seen. He does not have any sedation infusing. He remains intubated but is on CPAP. He does spontaneously move the lower extremities but is not following any commands. He did move his extremities to noxious stimulation as well as have facial grimacing. 05/04: This morning the patient is lethargic when seen. He continues to be intubated and is now mechanically ventilated. He does squeeze twice with the left hand and moves all extremities to noxious stimulation. He is not on any sedation. 05/05: When seen the patient is lethargic. He remains intubated and on PCV settings. He opened his eyes to voice. There was some questionable movement of the feet to command but he did withdraw the lower extremities to noxious stimulation. He didn't follow commands with the left upper but did have some movement with noxious stimulation. 05/06: The patient is seen moving both lower extremities spontaneously this morning. He does not appear to follow commands but has a strong withdrawal response with the lower extremities to noxious stimulation. The left upper response is weak. No response with the right upper. Nursing reports that Palliative Care spoke with the family and they want to continue aggressive care measures at present to include dialysis. 05/07: Dialysis is at the bedside when the patient was seen this morning. The [facility] placed a temporary haemodialysis catheter late yesterday afternoon. The patient still remains lethargic. He is spontaneously moving the lower extremities as well as to noxious stimulation. He does move the left upper to noxious stimulation. With noxious stimulation to the right upper the patient pulls both knees up strongly. 05/08: The patient is lethargic when seen. He does not have any sedation infusing. He was trached yesterday and remains mechanically ventilated. He had a PEG tube placed this morning prior to being seen. He was seen spontaneously moving both feet. He did have withdrawal of the lower extremities to local noxious stimulation but extension with central. There was no response to any stimulation with the upper extremities. 05/09: Patient opens eyes to stimulation. Pupils 3 mm bilaterally reactive bilaterally. Patient is intubated. System Review Comments Not able to obtain given clinical condition. Exam Results Vital Signs Date Time Temp Pulse Resp B/P (MAP) Pulse Ox O2 Delivery O2 Flow Rate FiO2 05/09/17 04:54 100 40 05/09/17 04:00 99.5 96 17 153/69 (97) Intake and Output 05/09/17 05/09/17 05/10/17 08:00 16:00 00:00 Intake Total 1502 ml Output Total 0 ml Balance 1502 ml Physical Examination GENERAL: Lethargic but opens eyes when stimulated. HEENT: Left craniotomy surgical incision well approximated, no evident drainage , erythema or streaking. Pupils 3 mm sluggish bilaterally. RESP: Trach in place. Pressure controlled ventilation. Rate 16. FiO2 40%. Peep 5. HEART: NSR 2/6 systolic ejection murmur. ABD: Soft positive bs. SKIN: No cyanosis or erythema. Crani site without signs of infection. MUSCULOSKELETAL: No clubbing or deformity evident. Not following for muscle testing. NEUROLOGICAL: Lethargic, w/o any sedation infusing. Opens eyes slightly with stimulation. Pupils 3 mm bilaterally, reactive bilaterally. Facial grimacing to noxious stimulation. Not following commands. Lab, Micro, Other Results Last Impressions Chest X-Ray 05/07/17 0000 Signed Impressions: Service Date/Time: April 14:05 - CONCLUSION: Tracheostomy tube now in place. No other significant interval change. David Meade MD Renal Ultrasound 05/05/17 0000 Signed Impressions: Service Date/Time: Friday, May 05, 2017 20:08 - CONCLUSION: 1. Mild hydronephrosis. Echogenic kidneys characteristic of mild medical renal disease. Lalo Loo MD Head CT 05/01/17 0927 Signed Impressions: Service Date/Time: Monday, May 01, 2017 11:52 - CONCLUSION: 1. Mild interval improvement in left subdural hematoma. 2. 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 3. No new hemorrhage or mass effect. Simon Haley MD Upper Extremity Ultrasound 04/25/17 0000 Signed Impressions: Service Date/Time: Tuesday, April 25, 2017 11:44 - CONCLUSION: No evidence of right upper extremity DVT. David Meade MD Cervical Spine CT 04/12/17 0000 Signed Impressions: Service Date/Time: Wednesday, April 12, 2017 17:36 - CONCLUSION: Degenerative spondylosis without any significant compromise to the thecal sac or the exiting nerve roots. Maria Guadalupe Alvarado MD Laboratory Tests Test 05/09/17 00:22 05/09/17 06:07 Blood Urea Nitrogen 77 MG/DL 79 MG/DL Creatinine 7.03 MG/DL 7.18 MG/DL Random Glucose 117 MG/DL 171 MG/DL Calcium Level 8.1 MG/DL 8.5 MG/DL Sodium Level 139 MEQ/L 136 MEQ/L Potassium Level 5.4 MEQ/L 6.2 MEQ/L Chloride Level 101 MEQ/L 96 MEQ/L Carbon Dioxide Level 27.7 MEQ/L 25.5 MEQ/L Anion Gap 10 MEQ/L 15 MEQ/L Estimat Glomerular Filtration Rate 8 ML/MIN 8 ML/MIN Albumin 1.6 GM/DL Phosphorus Level 7.9 MG/DL Medical Decision Making Impression and Plan A: 71 y/o M 1. 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 Dementia 4. Cardiac murmur CT brain demonstrated improvement in the left frontal subdural haematoma and chronic hygromas, no haemorrhage or mass effect. EEG consistent w/severe encephalopathy. KWAME #1 was removed . KWAME #2 removed . () s/p: Left frontoparietal craniotomy for evacuation of subacute on chronic subdural hematoma Postoperative Diagnosis: (1) Subdural hematoma, chronic (2) Acute subdural hematoma 1. Left hemisphere subacute on chronic subdural hematoma 2. Acute right frontal subdural hematoma () s/p: Revision left frontoparietal craniotomy evacuation of recurrent left hemisphere subdural hematoma Postoperative Diagnosis: (1) Acute subdural hematoma Recurrent left hemisphere subdural hematoma Plan: Continue to monitor neuro exam Continue with medical care Palliative care following. Tc Reza May 09, 2017 8:35 am
[2017-05-09] MEDS: HEPARIN SODIUM - IV 10,000 UNITS/10 ML VIAL PRN (08:50)
[2017-05-09] MEDS: GENTAMICIN SULFATE 20 MG/2 ML VIAL OTHER PRN (08:51)
[2017-05-09] MEDS: ARTIFICIAL TEARS OPTH OINT 3.5 APPLIC/3.5 GM TUBO EACH EYE SCH ×2 (09:00→20:14)
--- NOTE | 2017-05-09 11:35 | HHI.NPPN ---
Subjective History of Present Illness This patient is a 71-year-old male who unfortunately cannot provide any history at this time secondary to change in mental status and he is intubated on ventilatory support currently. Apparently the patient sustained a head injury and was admitted to this institution on April 12, 2017. Imaging studies reveal bilateral subdural hematoma. Patient also said to have a history of dementia, diabetes mellitus as well as COPD. His creatinine level was noted to have been 1.08 on May 02, 2016 subsequently deteriorating progressively thereafter it will level of 6.37 today with a potassium of 5.7. Patient also felt to have diabetes insipidus and has been receiving DDAVP. More recently however the patient has become oliguric. Critical care believes that the patient has a poor prognosis and family has been communicating with palliative care with considerations for a DNR CODE STATUS and possible hospice. No decision has been made as yet regarding dialytic support. Interval History Seen during HD. Opens eyes, but makes no meaningful gestures. No UOP (Stacie Amado) Review of Systems General General Remarks Unable to obtain (Stacie Amado) Objective Data Data 05/09/17 05/10/17 19:00 07:00 Intake Total 100 ml Output Total 3000 ml Balance -2900 ml IV Total 100 ml Hemodialysis 3000 ml Vital Signs Date Time Temp Pulse Resp B/P (MAP) Pulse Ox O2 Delivery O2 Flow Rate FiO2 05/09/17 10:00 107 05/09/17 08:43 99 40 05/09/17 08:00 105 05/09/17 08:00 100.4 102 18 132/59 (83) 97 05/09/17 08:00 40 05/09/17 04:54 100 40 05/09/17 04:00 99.5 96 17 153/69 (97) 100 05/09/17 04:00 40 05/09/17 00:14 97 40 05/09/17 00:00 98.4 79 16 143/70 (94) 98 05/09/17 00:00 40 05/08/17 23:10 16 05/08/17 20:01 100 40 05/08/17 20:00 98.2 78 16 130/59 (82) 100 05/08/17 20:00 40 05/08/17 20:00 70 05/08/17 18:00 72 05/08/17 16:15 40 05/08/17 16:14 100 40 05/08/17 16:00 98.8 74 16 131/60 (83) 100 05/08/17 16:00 74 05/08/17 16:00 40 05/08/17 14:00 82 05/08/17 12:00 98.6 94 16 119/59 (79) 100 05/08/17 12:00 40 05/08/17 12:00 94 (Stacie Amado) -: 05/07/17 0435 05/09/17 0607 Imaging Last Impressions Chest X-Ray 05/07/17 0000 Signed Impressions: Service Date/Time: April 14:05 - CONCLUSION: Tracheostomy tube now in place. No other significant interval change. David Meade MD Renal Ultrasound 05/05/17 0000 Signed Impressions: Service Date/Time: Friday, May 05, 2017 20:08 - CONCLUSION: 1. Mild hydronephrosis. Echogenic kidneys characteristic of mild medical renal disease. Lalo Loo MD Head CT 05/01/17 0927 Signed Impressions: Service Date/Time: Monday, May 01, 2017 11:52 - CONCLUSION: 1. Mild interval improvement in left subdural hematoma. 2. 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 3. No new hemorrhage or mass effect. Simon Haley MD Upper Extremity Ultrasound 04/25/17 0000 Signed Impressions: Service Date/Time: Tuesday, April 25, 2017 11:44 - CONCLUSION: No evidence of right upper extremity DVT. David Meade MD Cervical Spine CT 04/12/17 0000 Signed Impressions: Service Date/Time: Wednesday, April 12, 2017 17:36 - CONCLUSION: Degenerative spondylosis without any significant compromise to the thecal sac or the exiting nerve roots. Maria Guadalupe Alvarado MD Tubes & Lines: Vas-Cath, Munoz Medication Review Current Medications Medications (Trade) Dose Ordered Sig/Ashli Route Start Time Stop Time Status Last Admin (Keppra) 500 mg Q12HR PO 04/12/17 21:00 Future Hold 04/14/17 09:56 (Aricept) 10 mg HS PO 04/12/17 21:00 Future Hold 04/17/17 21:48 (Pravachol) 40 mg DAILY PO 04/13/17 09:00 05/06/17 10:15 (Zoloft) 150 mg DAILY PO 04/13/17 09:00 Future Hold 04/18/17 09:11 (Desyrel) 100 mg HS PO 04/12/17 21:00 Future Hold 04/13/17 20:18 (NS Flush) 2 ml UNSCH PRN IV FLUSH 04/12/17 20:30 (NS Flush) 2 ml BID IV FLUSH 04/12/17 21:00 05/08/17 09:00 (Zofran Inj) 4 mg Q6H PRN IV PUSH 04/12/17 20:30 04/14/17 03:35 Miscellaneous Information 1 Q361D XX 04/12/17 20:30 (Chlorhexidine 2% Cloth) Taper DAILY@04 TOP 04/13/17 04:00 04/09/18 03:59 (Chlorhexidine 2% Cloth) 3 pack UNSCH PRN TOP 04/12/17 20:30 (Julia-Colace) 1 tab BID PO 04/12/17 21:00 05/08/17 19:58 (Milk Of Magnesia Liq) 30 ml Q12H PRN PO 04/12/17 20:30 (Senokot) 17.2 mg Q12H PRN PO 04/12/17 20:30 (Dulcolax Supp) 10 mg DAILY PRN RECTAL 04/12/17 20:30 05/03/17 09:12 (Lactulose Liq) 30 ml DAILY PRN PO 04/12/17 20:30 (Apresoline Inj) 20 mg Q4H PRN IV PUSH 04/14/17 12:30 05/02/17 15:39 (Lopressor) 12.5 mg Q12HR PO 04/19/17 09:00 Future hold 05/08/17 19:58 (Pill Splitter) 1 ea UNSCH PRN OTHER 04/19/17 09:00 (Sodium Chloride) 2 gm DAILY NG 04/19/17 14:00 Future Hold (NovoLOG SUPPLEMENTAL SCALE) 1 Q6HR SQ 04/21/17 18:00 05/09/17 05:54 (D50w (Vial) Inj) 25 ml UNSCH PRN IV 04/21/17 14:15 04/23/17 05:22 (Glucagon Inj) 1 mg UNSCH PRN IM/SQ 04/21/17 14:15 (Cathflo Activase Inj) 2 mg Q2H PRN INTRACATH 04/21/17 14:15 04/22/17 03:39 (Levemir Inj) 20 units Q12HR SQ 04/24/17 21:00 05/07/17 21:00 (Free Water) 300 ml Q4HR G-TUBE 04/29/17 12:00 05/09/17 03:45 (Tylenol 650 Mg/ 20 ml Liq) 650 mg Q6H PRN NG 04/30/17 09:45 05/06/17 01:49 (Albuterol Neb) 2.5 mg Q2HR NEB PRN NEB 04/30/17 09:45 (Lacrilube Opht Oint) 1 applic Q12HR EACH EYE 04/30/17 21:00 05/08/17 19:58 (Magic Mouthwash Adult Liq) 10 ml Q6H PRN SWISH-SPIT 05/02/17 15:45 05/03/17 09:09 (Pepcid) 10 mg BID NG 05/03/17 21:00 05/08/17 19:58 Ceftriaxone Sodium 1000 mg/ Sodium Chloride 100 ml @ 200 mls/hr Q12H IV 05/03/17 18:00 05/09/17 05:47 (Neurontin) 300 mg DAILY PO 05/05/17 09:00 05/06/17 10:09 Sodium Bicarbonate 75 meq/Sodium Chloride 1,075 ml @ 125 mls/hr Q8H36M IV 05/05/17 20:00 Future Hold 05/06/17 21:48 Sodium Chloride 1,000 ml @ 0 mls/hr Q0M PRN OTHER 05/06/17 15:20 05/07/17 11:30 Sodium Chloride 1,000 ml @ 200 mls/hr Q5H PRN IV 05/06/17 15:20 Sodium Chloride 1,000 ml @ 0 mls/hr Q0M PRN OTHER 05/06/17 15:20 (Mannitol Inj) 12.5 gm UNSCH PRN IV 05/06/17 15:30 Albumin Human 100 ml @ 60 mls/hr UNSCH PRN IV 05/06/17 15:30 05/09/17 11:10 (NS Flush) 5 ml UNSCH PRN IV FLUSH 05/06/17 15:30 (Heparin Inj) UNSCH PRN .XX 05/06/17 15:30 05/09/17 08:50 (Gentamicin Inj) 20 mg UNSCH PRN OTHER 05/06/17 15:30 05/09/17 08:51 (Zofran Inj) 4 mg UNSCH PRN IV PUSH 05/06/17 15:30 (Tylenol) 650 mg UNSCH PRN PO 05/06/17 15:30 (Benadryl) 25 mg UNSCH PRN PO 05/06/17 15:30 (Nitrostat Sl) 0.4 mg UNSCH PRN SL 05/06/17 15:30 (Catapres) 0.1 mg UNSCH PRN PO 05/06/17 15:30 (Gelfoam 12 Mm/7 Mm Top) 1 foam UNSCH PRN TOP 05/06/17 15:30 (Morphine Inj) 4 mg Q3H PRN IV PUSH 05/07/17 14:30 05/08/17 23:05 (Detrol) 2 mg BID PO 05/07/17 21:00 05/08/17 19:58 (Stacie Amado) Physical Exam General Appearance: Comfortable (Stacie Amado) Pulmonary Resp Exam: Diminished Breath Sounds (Stacie Amado) Cardiology CV Exam: Tachycardia, Murmur (Stacie Amado) Gastrointestinal/Abdomen GI Exam: Soft, Non-Tender (Stacie Amado) Extremeties Extremities Exam: Moderate Edema, Pitting Edema (significant in BUE) (Stacie Amado) Neurologic Neuro Exam: Obtunded (Stacie Amado) Assessment/Plan Problem List: (1) Acute kidney insufficiency ICD Codes: N28.9 - Disorder of kidney and ureter, unspecified Status: Acute Plan: Etiology of the patient's acute renal insufficiency is not entirely clear. Noted mild hydronephrosis bilateral kidneys. Pending urology opinion Seen during HD today. UF 3.5L Phosphorus elevated & potassium has been running high despite dialysis. Would appreciate dietary recommendations on tube feedings to help regulate this. I believe that this patient is a poor long-term dialysis candidate as discussed with the daughter but hopefully renal recovery will occur. If not I believe further discussion would be indicated regarding patient's quality of life and continuance of dialysis. Medications should be adjusted for the patient's estimated GFR if clinically indicated. Avoid agents with significant potential for nephrotoxicity possible including NSAIDs for analgesia, iodine contrast agents. Gadolinium is contraindicated if the GFR is below 30. (2) Metabolic acidosis ICD Codes: E87.2 - Acidosis Status: Acute Plan: Resolved with HD (3) Hyperkalemia ICD Codes: E87.5 - Hyperkalemia Status: Acute Plan: Will improve with HD As above (4) Cranial diabetes insipidus ICD Codes: E23.2 - Diabetes insipidus Plan: Patient currently oliguric. (5) Subdural hematoma ICD Codes: I62.00 - Nontraumatic subdural hemorrhage, unspecified (Stacie Amado) Plan I consult to the dietitian in regard to enteral formula in view of renal failure and hyperkalemia. The exam, history, and the medical decision-making described in the above note were completed with the assistance of the PA-Javi. I reviewed and agree with the findings presented. I attest that I had a [id number] encounter with the patient on the same day, and personally performed and documented my assessment and findings in the medical record. (Pedro Lala MD) Stacie Amado May 09, 2017 11:35 Pedro Lala MD May 09, 2017 18:18
--- NOTE | 2017-05-09 13:00 | HHI.GIFU ---
Subjective Remarks Patient's resting in the bed Eyes closed but grimaces to tactile stimuli Globin stable at 9.8 Currently receiving dialysis (Lexy Reid) Objective Vitals I&O Vital Signs Date Time Temp Pulse Resp B/P (MAP) Pulse Ox O2 Delivery O2 Flow Rate FiO2 05/09/17 11:51 97 40 05/09/17 10:00 107 05/09/17 08:43 99 40 05/09/17 08:00 105 05/09/17 08:00 100.4 102 18 132/59 (83) 97 05/09/17 08:00 40 05/09/17 04:54 100 40 05/09/17 04:00 99.5 96 17 153/69 (97) 100 05/09/17 04:00 40 05/09/17 00:14 97 40 05/09/17 00:00 98.4 79 16 143/70 (94) 98 05/09/17 00:00 40 05/08/17 23:10 16 05/08/17 20:01 100 40 05/08/17 20:00 98.2 78 16 130/59 (82) 100 05/08/17 20:00 40 05/08/17 20:00 70 05/08/17 18:00 72 05/08/17 16:15 40 05/08/17 16:14 100 40 05/08/17 16:00 98.8 74 16 131/60 (83) 100 05/08/17 16:00 74 05/08/17 16:00 40 05/08/17 14:00 82 I/O 05/08/17 05/08/17 05/08/17 05/09/17 05/09/17 05/09/17 07:00 15:00 23:00 07:00 15:00 23:00 Intake Total 549 ml 100 ml 300 ml 1502 ml 100 ml Output Total 100 ml 40 ml 0 ml 3000 ml Balance 449 ml 100 ml 260 ml 1502 ml -2900 ml Intake Oral 0 ml IV Total 100 ml 602 ml 100 ml Tube Feeding 149 ml 0 ml 0 ml Other 300 ml 100 ml 300 ml 900 ml Output Urine Total 100 ml 40 ml 0 ml Hemodialysis 3000 ml # Bowel Movements 0 0 0 Laboratory Laboratory Tests Test 05/09/17 00:22 05/09/17 06:07 Blood Urea Nitrogen 77 79 Creatinine 7.03 7.18 Random Glucose 117 171 Calcium Level 8.1 8.5 Sodium Level 139 136 Potassium Level 5.4 6.2 Chloride Level 101 96 Carbon Dioxide Level 27.7 25.5 Anion Gap 10 15 Estimat Glomerular Filtration Rate 8 8 Albumin 1.6 Phosphorus Level 7.9 Date/Time Source Procedure Growth Status 04/21/17 18:53 Blood Peripheral Aerobic Blood Culture - Final NO GROWTH IN 5 DAYS Complete 04/21/17 18:53 Blood Peripheral Anaerobic Blood Culture - Final NO GROWTH IN 5 DAYS Complete 05/02/17 21:40 Sputum Endotracheal Gram Stain - Final Complete 05/02/17 21:40 Sputum Culture - Final Klebsiella Pneumoniae Complete Imaging Last Impressions Chest X-Ray 05/07/17 0000 Signed Impressions: Service Date/Time: April 14:05 - CONCLUSION: Tracheostomy tube now in place. No other significant interval change. David Meade MD Renal Ultrasound 05/05/17 0000 Signed Impressions: Service Date/Time: Friday, May 05, 2017 20:08 - CONCLUSION: 1. Mild hydronephrosis. Echogenic kidneys characteristic of mild medical renal disease. Lalo Loo MD Head CT 05/01/17 0927 Signed Impressions: Service Date/Time: Monday, May 01, 2017 11:52 - CONCLUSION: 1. Mild interval improvement in left subdural hematoma. 2. 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 3. No new hemorrhage or mass effect. Simon Haley MD Upper Extremity Ultrasound 04/25/17 0000 Signed Impressions: Service Date/Time: Tuesday, April 25, 2017 11:44 - CONCLUSION: No evidence of right upper extremity DVT. David Meade MD Cervical Spine CT 04/12/17 0000 Signed Impressions: Service Date/Time: Wednesday, April 12, 2017 17:36 - CONCLUSION: Degenerative spondylosis without any significant compromise to the thecal sac or the exiting nerve roots. Maria Guadalupe Alvarado MD Physical Exam HEENT: Currently no purposeful movement, pale mucous membranes, ventilator support, oral secretions clear NECK: Neck thin CHEST: Chest is managed with some obvious rhonchi and secretions CARDIAC: Regular rate and rhythm ABDOMEN: Soft, nondistended no hepatosplenomegaly; bowel sounds present, initiated tube site clean dry and intact EXTREMITIES: No edema. SKIN: Dry no rash; no jaundice. SHOE CLEANER: Grimace to movement or pain nonverbal (Lexy Reid) Assessment and Plan Plan ASSESSMENT - 71 yo male who presented after fall, found to have SDH and inraparenchymal hemorrhages s/p craniotomy, has trach and vent dependent. GI consulted for PEG tube placement. Patient has gastritis biopsy was done 05/08/17 PEG tube was placed without any difficulty Patient is full code full aggressive care, currently receiving dialysis, third treatment, land for schedule on Thursday Plan Diet , resume tube feeding, Glucerna 1.5-10 cc an hour goal rate 60 cc an hourGoal rate 60 cc/hr. May increase 10cc/day if tolerated. Continue PPI Monitor H&H Monitor labs/hemoglobin, cough or any active bleeding Peg tube and dressing changes daily, on a doctor for any erythema or edema or drainage and call GI Supportive care This patient was seen by myself and Dr. Oleary, this note was done on his behalf (Lexy Reid) Plan Patient was seen and examined, agree with above-noted, tolerating tube feeding, we'll advance as tolerated, we will follow up as needed, please call us if there is any indication (Shreyas Oleary MD) Lexy Reid May 09, 2017 13:00 Shreyas Oleary MD May 09, 2017 17:00
[2017-05-09] MEDS: FAMOTIDINE 20 MG TAB NG SCH ×2 (13:15→20:14)
[2017-05-09] MEDS: PRAVASTATIN SOD 40 MG TAB PO SCH (13:15)
[2017-05-09] MEDS: TOLTERODINE TARTRATE 2 MG TAB PO SCH ×2 (13:15→20:14)
[2017-05-09] MEDS: DOCUSATE SODIUM 50 MG/SENNA 8.6 MG TAB PO SCH ×2 (13:15→20:14)
[2017-05-09] MEDS: GABAPENTIN 300 MG CAP PO SCH (13:16)
[2017-05-09] MEDS: SODIUM CHLORIDE 0.9% FLUSH 10 ML FLUSH IV FLUSH SCH ×2 (13:16→20:14)
[2017-05-09] MEDS: METOPROLOL TARTRATE 25 MG TAB PO SCH ×2 (13:16→20:14)
--- NOTE | 2017-05-09 20:00 | HHI.CCPN ---
Subjective Remarks/Hospital Course 04/12: 71-year-old male presents for evaluation after he fell hitting his head. Per family report they were in the bathroom trying to change his undergarments when he slipped and fell hitting his head. He is not on anticoagulant. The patient is pleasantly confused and patient's daughter states this is his baseline. He has had no altered mental status since the fall. No vomiting. The patient reports a mild headache without radiation. No neck pain or back pain. He has been ambulatory without difficulty since the fall. The CT head performed in the emergency department shows bilateral subdural hematomas in addition to parafalcine subdural hematoma, left frontal and temporal lobe intraparenchymal hemorrhages and subfalcine herniation from [id number]. 04/13: Resting in bed comfortably at the time of my evaluation this morning. Confused, does not know the year. Knows he is in the hospital. Moves all 4 extremity's. Does not appear to be in any acute distress. 04/14: Afebrile. The patient continues to be confused but easily following commands notable systolic ejection murmur, echo pending. Patient scheduled for neurosurgical intervention this afternoon. 04/15: Tmax 99.3. The patient status post craniotomy with evacuation of subdural hematoma last evening, remained intubated, only on sedation with propofol infusion and requiring low-dose phenylephrine to maintain map greater than 65. Sedation was briefly lightened last evening postoperatively, and the patient was extremely agitated. IV fluids changed from D5W to normal saline with [address] brain performed. INR pending. 04/16: Tmax 99.8 Patient agitated during the night , swinging his legs out of the bed while on maximum doses of propofol infusion, fentanyl infusion low-dose added this a.m. Patient's diet advance will begin tube feeds this a.m. The patient was noted to have multifocal PVCs intermittent during the night potassium level 3.2 currently being repleted with K-Phos. 04/17: Tmax 101.6. The patient underwent emergent craniotomy for evacuation of acute recurrent left subdural hematoma last evening. The patient continues on 3 % normal saline, with serial sodium and osmole is being followed. Currently weaning slowly sedation for neuro assessment. Patient noted to have a significant elevation in WBC count of 22, blood cultures urine cultures and sputum cultures obtained. Chest x-ray now showing bilateral lung opacities edema versus possible infectious process being ruled out. Echo revealed patient has severe aortic stenosis with a roommate mean gradient of 44. The patient continues on phenylephrine for vasopressors support at this time. 04/18: Last evening, the patient went into A. fib RVR, heart rate low 100s, with self resolution. This a.m. the patient continues to have sinus rhythm/sinus tachycardia 90-105 with frequent multifocal PVCs. Electrolytes within normal limits. Given the significant medical history for severe aortic stenosis metoprolol 2.5 mg IV for rapid heart rate instituted. The patient continues on phenylephrine infusion for maintenance of a map greater than 65. Propofol is currently being weaned off. EEG revealed last night severe encephalopathy. No change in neurological status but patient still is under sedation patient withdraws to pain bilateral lower extremities and now has spontaneous eye opening intermittently. Leukocytosis notably is resolving. 04/19: Afebrile. Today afternoon the patient was noted to have a seizure, Ativan 1 mg IV push with resolution EEG ordered. Post seizure the patient was noted to have gross hematuria. Coag studies performed within normal limits, fibrinogen level slightly elevated . Creatinine kinase noted to be within normal limits. Hematuria thought to possibly be secondary to acquired von Willebrand's factor secondary to the shear stress from his severe aortic stenosis. DDAVP 2 mcgs IV 1 dose ordered this a.m.. Patient continues on 3% sodium chloride, phenylephrine has been discontinued. 04/20: Remains sedated, orally intubated on mechanical ventilation. Remains on 3 % saline. Off phenylephrine currently. Blood pressure labile. Tolerating tube feeds. 04/21: Remains sedated, orally intubated on mechanical ventilation. Stopping 3% saline. Tolerating tube feeds 04/22: Remains sedated, orally intubated on mechanical ventilation. On Levophed for pressor support. Spiking temperatures. Started on Zosyn yesterday. Continues to have hematuria. One unit PRBCs and fluid bolus ordered. 04/23: Appears to have developed ADRIANNE from osmotic diuresis associated with poorly controlled diabetes. Hyperglycemia exacerbated by dextrose containing solution. Will start constant carb feedings with glucerna, reduce levemir, add SSI coverage, and hydrate to correct fluid depletion. 04/24: Continued serum concentration associated with free water loss. No improvement in neurological function. Suspect osmotic diuresis from elevated glucose but will check urine specific gravity to rule out DI. 04/25: Osmolality improving. Continue DDAVP prn. 04/26: Alertness much improved after Na corrected. Required DDAVP X 2. Gas exchange acceptable and he is strong on CPAP trial. Right arm edematous, ultrasound with no thrombus. 04/27: Extubated > 24 hours ago and breathing comfortably. Protects airway. Electrolytes normalized. Transfer. 04/28: Tolerating extubation but respiratory rate increased, not labored. Osmolality normalized off of DDAVP. 04/29: more somnolent today, but still awake and following commands. sodium mp from 143 to 147 off DDAVP. will restart free water. ROS unobtainable due to patient's baseline mental status. 3-way contreras persists, less hematuria noted. Cr continues to improve. remains stable for transfer to floor. SUBJECTIVE: 04/30: Currently in room 1319 . Resting in sitting position bed. Currently resting in bed in no acute distress. Contreras catheter remains. 05/01: > 5 liters urine with rising BUN/Creatinine - appears to have slipped back into DI. 05/02: Daughter request Palliative Care consult to assist with decision making re continued aggressive care, trach. 05/03: Intermittent diabetes insipidus causing big problems for kidneys. Episodic diuresis unpredictable and between bouts he develops pulmonary edema. Remains very weak and unable to tolerate vent weaning trials. 05/04: Patient continues to deteriorate. He will not survive this hospitalization. 05/05: No improvement. Renal function deteriorating. 05/06: Kidneys continue to deteriorate. Family has decided to continue with aggressive care. They want us to proceed with trach, PEG, and dialysis. Terminal disease process. 05/07: Family has elected to continue with aggressive care. Need and risks of tracheostomy insertion have been discussed with the daughter. She accepts risks , including bleeding and . 05/08: Trach, PEG in place. Will work toward LTAC placement. 05/09: Continuing dialysis with no renal recovery. Ventilator dependent. Objective Vital Signs Date Time Temp Pulse Resp B/P (MAP) Pulse Ox O2 Delivery O2 Flow Rate FiO2 05/09/17 18:00 102 05/09/17 16:00 40 05/09/17 16:00 99.3 17 117/57 (77) 98 Intake and Output 05/09/17 05/09/17 05/10/17 08:00 16:00 00:00 Intake Total 1502 ml 100 ml 1620 ml Output Total 0 ml 3000 ml 625 ml Balance 1502 ml -2900 ml 995 ml Result Diagram: 05/07/17 0435 05/09/17 0607 Imaging Last Impressions Head CT 04/27/17 0000 Signed Impressions: Service Date/Time: Thursday, April 27, 2017 11:04 - CONCLUSION: 1. Interval removal of the patient's subdural drain. There is still a small amount of subdural hemorrhage remaining along the left frontal cortex. The remainder of the hemorrhage along the parietal is no longer identified. Findings were discussed in detail above. Luis Moreno MD Chest X-Ray 04/26/17 0400 Signed Impressions: Service Date/Time: Wednesday, April 26, 2017 04:12 - CONCLUSION: No significant interval change. Zeferino Hewitt MD Upper Extremity Ultrasound 04/25/17 0000 Signed Impressions: Service Date/Time: Tuesday, April 25, 2017 11:44 - CONCLUSION: No evidence of right upper extremity DVT. David Meade MD Cervical Spine CT 04/12/17 0000 Signed Impressions: Service Date/Time: Wednesday, April 12, 2017 17:36 - CONCLUSION: Degenerative spondylosis without any significant compromise to the thecal sac or the exiting nerve roots. Maria Guadalupe Alvarado MD Objective Remarks GENERAL: 71-year-old Elderly gentleman. SKIN: Warm and dry. No rash HEAD: Atraumatic. Normocephalic. EYES: Pupils equal and round 2 mm bilaterally and reactive. No scleral icterus. No injection or drainage. ENT: No nasal bleeding or discharge. Mucous membranes pink and moist. NECK: Trachea midline. Orally intubated. CARDIOVASCULAR: Regular rate and rhythm. NL S1, S2. 2/6 systolic murmur right upper sternal border RESPIRATORY: No wheezing rales or rhonchi, good terese air movement. GASTROINTESTINAL: Abdomen soft, non-tender, nondistended, no guarding. BS active. PEG site clean, minimal serous drainage. : Contreras catheter in place MUSCULOSKELETAL: Extremities without clubbing, cyanosis. Right arm with resolving gross edema. NEUROLOGICAL: Moves 4 limbs weakly. Withdraws to pain in all 4 extremities. Otherwise largely unresponsive. Procedures 1/2-left frontoparietal craniotomy with evacuation of subacute on chronic SDH 04/17-@ 0000 emergent craniotomy with evacuation of acute recurrent left subdural hematoma A/P Assessment and Plan NEURO/PSYCH TBI -Subdural hematoma S/P Left frontoparietal craniotomy with evacuation of subacute on chronic SDH S/P Emergency revision/evacuation of acute recurrent left subdural hematoma Acute encephalopathy- resolving slowly Dementia disorder NOS Depression -Neurosurgery following. Dr. Odom - Neuro checks per protocol - Repeat CT head per neurosurgery-stable acute subdural hematoma within frontal regions, bilateral 5 mm subfalcine herniation to the right - Seizure prophylaxis with levetiracetam has been discontinued GBG discontinued 04/26 - 04/18 EEG-severe encephalopathy avoid long-acting sedating meds continue home gabapentin. 400 mg 3 times a day Trazodone 100 mg at night, sertraline 150 mg daily and donepezil 10 mg a old discontinued secondary QTc prolongation Acetaminophen 650 mg by NG every 6 hours when necessary fever Continuing episodic DI RESP: COPD Acute hypoxic and hypercarbic respiratory failure - resolving. Nasal cannula to maintain saturations greater than equal to 90% Incentive spirometry while awake Albuterol/ipratropium aerosols every 6 hours with albuterol aerosols 2 hours. Dyspnea - Extubated 04/26. - aggressive pulmonary toilet with a cappella/CPAP incentive spirometry - PRVC vent mode 04/30 CV: Severe Hypotension- -resolved. Sinus tachycardia- resolved. Essential hypertension -/ EKG prolonged QT 475, continue close monitoring - 04/16 Echo-s Normal left ventricular size. Severe concentric left ventricular hypertrophy. The left ventricular systolic function is low normal with an estimated ejection fraction in the range of 50- 55%. Trace aortic valve regurgitation. Severe aortic valve stenosis. Moderate thickening of the aorticv alve leaflets. Aortic valve mean gradient is 44 mmHg. 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 Woods has followed Neurology recommends replace Contreras catheter with a 18 Armenian coud and irrigate when necessary clots (previously with a 14 Armenian catheter) Continue tolterodine 4 mg by mouth daily for management of bladder spasms Holding trospium 20 mg twice a day ENDO: Diabetes mellitus - improved control. Central Diabetes Insipidus - Hold metformin 500 mg daily/home medication - Insulin sliding scale Novulog -high dose dose regimen, 25 units sliding scale past 24 hours Currently on insulin detemir 20 units twice a day - Unable to get clear urine due to bladder bleed. - Responding well to DDAVP, now stopped 04/28. Currently on free water 300mL po q4h - daily bmp to check sodium - Restart DDAVP ID: Septic shock- resolved. Pneumonia - resolved. Bacteremia- resolved. 04/19-blood cultures-staph intermedius 04/14 sets - contaminant 04/20 - Sputum cultures with e. coli, klebisella. s/p full course of Augie/ tazobactam 04/21 - 04/27. monitor off abx for fever, signs of infection. HEME: Last CBC 04/25. Leukocytosis. Recheck in a.m. 05/01 FEN: Hypernatremia See above treatment plan Continue free water 300 cc every 4 hours. Recheck BMP in a.m. Replace electrolytes as clinically indicated HD started 05/06 [facility] PT evaluate and treat DVT GI prophylaxis - Teds SCDs - No pharmacological DVT prophylaxis due to subdural hematoma - Pepcid BID Overall impression: Family continues to want aggressive care. They understand his chances of survival and return to a meaningful existence are very small. LTAC placement pending. Roland Figueroa MD May 09, 2017 20:00
[2017-05-09] MEDS: CHLORHEXIDINE GLUCONATE 2 % 1 PACK (2 CLOTHS) TOP SCH (23:45)
[2017-05-10] VITALS (16 sets, daily range): BP systolic 78–122; BP diastolic 48–60; PULSE 65–101; RESP 16–27; TEMP 97.5–98.6; O2SAT 96–100
[2017-05-10] MEDS: MORPHINE SULFATE 4 MG/ML INJ IV PUSH PRN ×2 (03:02→08:45)
[2017-05-10] MEDS: FREE WATER G-TUBE SCH ×6 (03:48→23:48)
[2017-05-10] MEDS: cefTRIAXone INJ 1,000 MG in SODIUM CHLORIDE 0.9% INJ 100 ML IV SCH ×2 (05:20→18:00)
[2017-05-10] MEDS: INSULIN ASPART SUPPLEMENTAL SCALE SQ SCH ×4 (06:02→23:48)
[2017-05-10 07:43] LABS: ALBUMIN 1.6 GM/DL (3.4-5.0); BICARBONATE 29.9 MEQ/L (21.0-32.0); CALCIUM 7.8 MG/DL (8.5-10.1); CREATININE 5.58 MG/DL (0.60-1.30); PHOSPHORUS 5.7 MG/DL (2.5-4.9)
[2017-05-10] MEDS: TOLTERODINE TARTRATE 2 MG TAB PO SCH ×2 (08:22→20:37)
[2017-05-10] MEDS: SODIUM CHLORIDE 0.9% FLUSH 10 ML FLUSH IV FLUSH SCH ×2 (08:22→20:37)
[2017-05-10] MEDS: ARTIFICIAL TEARS OPTH OINT 3.5 APPLIC/3.5 GM TUBO EACH EYE SCH ×2 (08:22→20:37)
[2017-05-10] MEDS: GABAPENTIN 300 MG CAP PO SCH (08:22)
[2017-05-10] MEDS: FAMOTIDINE 20 MG TAB NG SCH ×2 (08:22→20:37)
[2017-05-10] MEDS: METOPROLOL TARTRATE 25 MG TAB PO SCH ×2 (08:22→20:37)
[2017-05-10] MEDS: DOCUSATE SODIUM 50 MG/SENNA 8.6 MG TAB PO SCH ×2 (08:22→20:37)
[2017-05-10] MEDS: PRAVASTATIN SOD 40 MG TAB PO SCH (08:23)
--- NOTE | 2017-05-10 08:36 | HHI.NSPN ---
History Chief Complaint: Unable to obtain due to patient's clinical condition. Interval History 04/12: Mr. Hope is a 71-year-old male who presented to the emergency room today after he fell at home in the presence of his daughter. She states that he lost his balance while trying to put some close on, and fell and struck his head. There was no loss of consciousness. No seizure activity or nausea or emesis reported. The patient has baseline dementia and confusion, but no definite overall change in his mentation after the fall earlier today, according to his daughter, who he lives with. He presently has no complaint of headache. He does have some chronic neck and back pain. 04/13: The patient was examined in the presence of the family today and a more detailed history has been obtained. They indicate chronic progressive dementia to the point that the patient has had to move in with his daughter earlier this year. He cannot care for himself. He is usually quite confused, conversing with only a few words or short sentences and unable to stay on task with conversations. He is usually very active, fidgeting constantly. They state that his mental status today is not significantly changed from his overall baseline. He did go to the emergency room a couple of weeks ago at [facility] due to some pressure sensation or frontal headaches and was diagnosed with sinus congestion. A CT scan of the head was not obtained. He has had no definite falls over the past few weeks up until yesterday. 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 Post-operatively he returned to [facility] for further care and monitoring. 04/15: This morning the patient is obtunded and has no sedation infusing. He does withdraw to noxious stimulation. He does not open his eyes but does have facial grimacing and turns his head to noxious stimulation. ADDENDUM at 1854: Patient was sedated with propofol 50 mcg/kg/min when seen, the pump was not visible at the time. BET. 04/16: When seen the patient is obtunded but does have the propofol drip infusing. Nursing reports that he moves all extremities but does become agitated when the propofol is weaned down. He moves all extremities to noxious stimulation when seen but did not follow any commands. 04/17: The patient remains obtunded and continues to be sedated with a propofol drip. He is now on phenylephrine for blood pressure support. He does not respond to commands and only withdraws the lower extremities to noxious stimulation. He does have some facial grimacing but no eye opening to noxious stimulation. He did go emergently late last night/early this morning for a revision of the left frontoparietal craniotomy for evacuation of a recurrent left hemisphere subdural haematoma. 04/18/17: intubated, propofol just turned off, intermittent movement to ext per nursing, not opening eyes. 04/19/17: nursing reports seizures yesterday, repeat CT head stable residual SDH and 5 mm midline shift. Awaiting EEG. 04/20: Patient with right eye partially opened when seen but Nursing just stimulated patient. He remains intubated and mechanically ventilated. He withdraws to noxious stimuli to the lower extremities but not the upper. He does have facial grimacing to noxious stimulation. Nursing reports that overnight KWAME #1 had 170 mL of yellowish drainage. She also says the patient has been off sedation approximately 36 hours. 04/21: The patient was examined in the presence of the family today and a more detailed history has been obtained. They indicate chronic progressive dementia to the point that the patient has had to move in with his daughter earlier this year. He cannot care for himself. He is usually quite confused, conversing with only a few words or short sentences and unable to stay on task with conversations. He is usually very active, fidgeting constantly. They state that his mental status today is not significantly changed from his overall baseline. He did go to the emergency room a couple of weeks ago at [facility] due to some pressure sensation or frontal headaches and was diagnosed with sinus congestion. A CT scan of the head was not obtained. He has had no definite falls over the past few weeks up until yesterday. 04/23: When seen the patient did have his eyes partially opened and he opened them wider to voice. He was moving the left upper and both lower extremities to varying degrees spontaneously. It was questionable if he moved the left lower to command but did move all extremities to noxious stimulation. 04/24: It is difficult to say if the patient was asleep when seen or not. It did appear he had his eyes partially open since Nursing was in the room. He did open them briefly to my voice. He spontaneously moved the left hand some and gripped this practitioner's hand. He moved the lower extremities to command. There was no noted movement of the right upper to noxious stimulation but he did have facial grimacing. 04/25: Patient is sedated but will respond to painful stimulation. 04/26: Patient now extubated and much more alert and responsive. He is not indicating any significant pain complaints. 04/27: This morning the patient's eyes are open. He did squeeze to command with the left hand and had withdrawal of the other extremities to noxious stimulation. He has been extubated but is nonverbal. He has mild respiratory effort on a nasal cannula. 04/28: When seen this morning the patient is lethargic. He did not open his eyes to voice or follow any commands. He did have slight withdrawal of the left upper and both lower extremities to noxious stimulation. He did have facial grimacing to noxious stimulation as well. 04/29: The patient is awake this morning. He is on a nasal cannula. He squeezes with the left hand when a hand is placed in it. He moves both feet to noxious stimulation. He had no movement of the right upper extremity. 04/30: This morning the patient is sitting up in the cardiac chair with his eyes closed. There was no evident eye opening to voice. He was noted to move the left lower extremity spontaneously. He did give a slight squeeze with the left hand to command and appears to have tried to give a thumbs up when asked to. He did move the right lower extremity to noxious stimulation and there was muscle contraction noted to the right forearm to noxious stimulation. 05/01: When seen this morning the patient is intubated and on CPAP. He does not respond to any commands or open his eyes. He does spontaneously move the left upper extremity and both lower to noxious stimulation. There was no response with the right upper. Nursing reports that during the night his systolic blood pressure dropped into the 70s, his respirations were in the 30s and he was tachycardiac in the 130s. He was therefore emergently intubated. He was given three litres of intravenous fluids and his systolic blood pressure improved. 05/02: The patient is seen moving both lower extremities spontaneously. He remains intubated and mechanically ventilated. He is not on any sedation. His daughter is present and states that he did open his eyes briefly to her voice and that he was squeezing her hand. He did squeeze this practitioner's hand to command and moved both lower extremities to noxious stimulation. There was no movement of the right upper. 05/03: The patient is lethargic when seen. He does not have any sedation infusing. He remains intubated but is on CPAP. He does spontaneously move the lower extremities but is not following any commands. He did move his extremities to noxious stimulation as well as have facial grimacing. 05/04: This morning the patient is lethargic when seen. He continues to be intubated and is now mechanically ventilated. He does squeeze twice with the left hand and moves all extremities to noxious stimulation. He is not on any sedation. 05/05: When seen the patient is lethargic. He remains intubated and on PCV settings. He opened his eyes to voice. There was some questionable movement of the feet to command but he did withdraw the lower extremities to noxious stimulation. He didn't follow commands with the left upper but did have some movement with noxious stimulation. 05/06: The patient is seen moving both lower extremities spontaneously this morning. He does not appear to follow commands but has a strong withdrawal response with the lower extremities to noxious stimulation. The left upper response is weak. No response with the right upper. Nursing reports that Palliative Care spoke with the family and they want to continue aggressive care measures at present to include dialysis. 05/07: Dialysis is at the bedside when the patient was seen this morning. The Director Operating Room placed a temporary haemodialysis catheter late yesterday afternoon. The patient still remains lethargic. He is spontaneously moving the lower extremities as well as to noxious stimulation. He does move the left upper to noxious stimulation. With noxious stimulation to the right upper the patient pulls both knees up strongly. 05/08: The patient is lethargic when seen. He does not have any sedation infusing. He was trached yesterday and remains mechanically ventilated. He had a PEG tube placed this morning prior to being seen. He was seen spontaneously moving both feet. He did have withdrawal of the lower extremities to local noxious stimulation but extension with central. There was no response to any stimulation with the upper extremities. 05/09: Patient opens eyes to stimulation. Pupils 3 mm bilaterally reactive bilaterally. Patient is intubated. 05/10: Patient opens eyes briefly to voice. Pupils 3 mm bilaterally reactive bilaterally. He spontaneously moves his left side more than the right side. Trach in place on vent. System Review Comments Not able to obtain given clinical condition. Exam Results Vital Signs Date Time Temp Pulse Resp B/P (MAP) Pulse Ox O2 Delivery O2 Flow Rate FiO2 05/10/17 04:37 100 40 05/10/17 04:00 98.2 101 16 92/50 (64) Intake and Output 05/10/17 05/10/17 05/11/17 08:00 16:00 00:00 Intake Total 987 ml Output Total 1500 ml Balance -513 ml Physical Examination GENERAL: Lethargic but opens eyes when stimulated. HEENT: Left craniotomy surgical incision well approximated, no evident drainage , erythema or streaking. Pupils 3 mm sluggish bilaterally. RESP: Trach in place. Pressure controlled ventilation. Rate 16. FiO2 40%. Peep 5. HEART: NSR 2/6 systolic ejection murmur. ABD: Soft positive bs. SKIN: No cyanosis or erythema. Crani site without signs of infection. MUSCULOSKELETAL: No clubbing or deformity evident. Not following for muscle testing. Moves left side more than right side spontaneously. NEUROLOGICAL: Opens eyes briefly to voice, w/o any sedation infusing. Pupils 3 mm bilaterally, reactive bilaterally. Facial grimacing to noxious stimulation. Not following commands. Lab, Micro, Other Results Last Impressions Chest X-Ray 05/07/17 0000 Signed Impressions: Service Date/Time: April 14:05 - CONCLUSION: Tracheostomy tube now in place. No other significant interval change. David Meade MD Renal Ultrasound 05/05/17 0000 Signed Impressions: Service Date/Time: Friday, May 05, 2017 20:08 - CONCLUSION: 1. Mild hydronephrosis. Echogenic kidneys characteristic of mild medical renal disease. Lalo Loo MD Head CT 05/01/17 0927 Signed Impressions: Service Date/Time: Monday, May 01, 2017 11:52 - CONCLUSION: 1. Mild interval improvement in left subdural hematoma. 2. 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 3. No new hemorrhage or mass effect. Simon Haley MD Upper Extremity Ultrasound 04/25/17 0000 Signed Impressions: Service Date/Time: Tuesday, April 25, 2017 11:44 - CONCLUSION: No evidence of right upper extremity DVT. David Meade MD Cervical Spine CT 04/12/17 0000 Signed Impressions: Service Date/Time: Wednesday, April 12, 2017 17:36 - CONCLUSION: Degenerative spondylosis without any significant compromise to the thecal sac or the exiting nerve roots. Maria Guadalupe Alvarado MD Laboratory Tests Test 05/10/17 05:50 Blood Urea Nitrogen 59 MG/DL Creatinine 5.58 MG/DL Random Glucose 194 MG/DL Albumin 1.6 GM/DL Calcium Level 7.8 MG/DL Phosphorus Level 5.7 MG/DL Sodium Level 140 MEQ/L Potassium Level 4.8 MEQ/L Chloride Level 102 MEQ/L Carbon Dioxide Level 29.9 MEQ/L Anion Gap 8 MEQ/L Estimat Glomerular Filtration Rate 10 ML/MIN Medical Decision Making Impression and Plan A: 71 y/o M 1. 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 Dementia 4. Cardiac murmur CT brain demonstrated improvement in the left frontal subdural haematoma and chronic hygromas, no haemorrhage or mass effect. EEG consistent w/severe encephalopathy. KWAME #1 was removed . KWAME #2 removed . () s/p: Left frontoparietal craniotomy for evacuation of subacute on chronic subdural hematoma Postoperative Diagnosis: (1) Subdural hematoma, chronic (2) Acute subdural hematoma 1. Left hemisphere subacute on chronic subdural hematoma 2. Acute right frontal subdural hematoma () s/p: Revision left frontoparietal craniotomy evacuation of recurrent left hemisphere subdural hematoma Postoperative Diagnosis: (1) Acute subdural hematoma Recurrent left hemisphere subdural hematoma Plan: Continue to monitor neuro exam Continue with medical care Palliative care following. Tc Reza May 10, 2017 8:36 am
[2017-05-10] MEDS: fentaNYL DRIP 250 ML IV PRN (11:00)
[2017-05-10] MEDS ORDERED: ACETAMINOPHEN 650 MG/20.3 ML UDC NG PRN (11:30)
--- NOTE | 2017-05-10 15:05 | HHI.NPPN ---
Subjective History of Present Illness This patient is a 71-year-old male who unfortunately cannot provide any history at this time secondary to change in mental status and he is intubated on ventilatory support currently. Apparently the patient sustained a head injury and was admitted to this institution on April 12, 2017. Imaging studies reveal bilateral subdural hematoma. Patient also said to have a history of dementia, diabetes mellitus as well as COPD. His creatinine level was noted to have been 1.08 on May 02, 2016 subsequently deteriorating progressively thereafter it will level of 6.37 today with a potassium of 5.7. Patient also felt to have diabetes insipidus and has been receiving DDAVP. More recently however the patient has become oliguric. Critical care believes that the patient has a poor prognosis and family has been communicating with palliative care with considerations for a DNR CODE STATUS and possible hospice. No decision has been made as yet regarding dialytic support. Interval History Patient remains stuporous. Review of Systems General General Remarks Unable to obtain Objective Data Data Vital Signs Date Time Temp Pulse Resp B/P (MAP) Pulse Ox O2 Delivery O2 Flow Rate FiO2 05/10/17 12:58 100 40 05/10/17 09:10 100 40 05/10/17 09:10 40 05/10/17 08:26 100 40 05/10/17 04:37 100 40 05/10/17 04:00 98.2 101 16 92/50 (64) 100 05/10/17 04:00 40 05/10/17 03:07 16 05/10/17 00:02 100 40 05/10/17 00:00 98.1 76 16 122/58 (79) 100 05/10/17 00:00 40 05/09/17 20:49 100 40 05/09/17 20:00 86 05/09/17 20:00 98.8 87 17 107/54 (71) 100 05/09/17 20:00 40 05/09/17 18:00 102 05/09/17 16:00 40 05/09/17 16:00 99.3 106 17 117/57 (77) 98 05/09/17 16:00 106 05/09/17 15:35 40 -: 05/07/17 0435 05/10/17 0550 Tubes & Lines: Vas-Cath, Munoz Physical Exam General Appearance: Comfortable Pulmonary Resp Exam: Diminished Breath Sounds Cardiology CV Exam: Tachycardia, Murmur Gastrointestinal/Abdomen GI Exam: Soft, Non-Tender Extremeties Extremities Exam: Moderate Edema, Pitting Edema (significant in BUE) Neurologic Neuro Exam: Obtunded Assessment/Plan Problem List: (1) Acute kidney insufficiency ICD Codes: N28.9 - Disorder of kidney and ureter, unspecified Status: Acute Plan: Apparently the patient is receiving bladder irrigation and this has been documented in the urine output so documented volume not reliable.. Hemodialysis tentatively tomorrow for fluid management and electrolyte management. Phosphorus elevated & potassium has been running high despite dialysis. Would appreciate dietary recommendations on tube feedings to help regulate this. I believe that this patient is a poor long-term dialysis candidate as discussed with the daughter but hopefully renal recovery will occur. If not I believe further discussion would be indicated regarding patient's quality of life and continuance of dialysis. Medications should be adjusted for the patient's estimated GFR if clinically indicated. Avoid agents with significant potential for nephrotoxicity possible including NSAIDs for analgesia, iodine contrast agents. Gadolinium is contraindicated if the GFR is below 30. (2) Metabolic acidosis ICD Codes: E87.2 - Acidosis Status: Acute Plan: Resolved with HD (3) Hyperkalemia ICD Codes: E87.5 - Hyperkalemia Status: Acute Plan: Will improve with HD As above (4) Cranial diabetes insipidus ICD Codes: E23.2 - Diabetes insipidus Plan: Patient currently oliguric. (5) Subdural hematoma ICD Codes: I62.00 - Nontraumatic subdural hemorrhage, unspecified Pedro Lala MD May 10, 2017 15:05
[2017-05-11] VITALS (15 sets, daily range): BP systolic 102–121; BP diastolic 52–58; PULSE 66–93; RESP 16–18; TEMP 96.9–98.8; O2SAT 94–100
[2017-05-11] MEDS: CHLORHEXIDINE GLUCONATE 2 % 1 PACK (2 CLOTHS) TOP SCH (00:16)
[2017-05-11] MEDS: FREE WATER G-TUBE SCH ×5 (03:53→20:00)
[2017-05-11] MEDS: cefTRIAXone INJ 1,000 MG in SODIUM CHLORIDE 0.9% INJ 100 ML IV SCH ×2 (06:09→18:00)
[2017-05-11 06:26] LABS: ALBUMIN 1.7 GM/DL (3.4-5.0); BICARBONATE 28.5 MEQ/L (21.0-32.0); CALCIUM 8.2 MG/DL (8.5-10.1); CREATININE 5.69 MG/DL (0.60-1.30)
[2017-05-11 06:27] LABS: PHOSPHORUS 5.2 MG/DL (2.5-4.9)
[2017-05-11] MEDS: INSULIN ASPART SUPPLEMENTAL SCALE SQ SCH ×3 (06:38→18:00)
[2017-05-11] MEDS: ARTIFICIAL TEARS OPTH OINT 3.5 APPLIC/3.5 GM TUBO EACH EYE SCH (08:21)
[2017-05-11] MEDS: TOLTERODINE TARTRATE 2 MG TAB PO SCH (08:22)
[2017-05-11] MEDS: SODIUM CHLORIDE 0.9% FLUSH 10 ML FLUSH IV FLUSH SCH (08:22)
[2017-05-11] MEDS: PRAVASTATIN SOD 40 MG TAB PO SCH (08:22)
[2017-05-11] MEDS: DOCUSATE SODIUM 50 MG/SENNA 8.6 MG TAB PO SCH (08:22)
[2017-05-11] MEDS: FAMOTIDINE 20 MG TAB NG SCH (08:22)
[2017-05-11] MEDS: GABAPENTIN 300 MG CAP PO SCH (08:22)
[2017-05-11] MEDS: METOPROLOL TARTRATE 25 MG TAB PO SCH (08:22)
--- NOTE | 2017-05-11 11:26 | HHI.NPPN ---
Subjective History of Present Illness This patient is a 71-year-old male who unfortunately cannot provide any history at this time secondary to change in mental status and he is intubated on ventilatory support currently. Apparently the patient sustained a head injury and was admitted to this institution on April 12, 2017. Imaging studies reveal bilateral subdural hematoma. Patient also said to have a history of dementia, diabetes mellitus as well as COPD. His creatinine level was noted to have been 1.08 on May 02, 2016 subsequently deteriorating progressively thereafter it will level of 6.37 today with a potassium of 5.7. Patient also felt to have diabetes insipidus and has been receiving DDAVP. More recently however the patient has become oliguric. Critical care believes that the patient has a poor prognosis and family has been communicating with palliative care with considerations for a DNR CODE STATUS and possible hospice. No decision has been made as yet regarding dialytic support. Interval History Remains non-responsive (Stacie Amado) Review of Systems General General Remarks Unable to obtain (Stacie Amado) Objective Data Data Vital Signs Date Time Temp Pulse Resp B/P (MAP) Pulse Ox O2 Delivery O2 Flow Rate FiO2 05/11/17 08:04 99 30 05/11/17 04:00 97.8 67 16 102/52 (69) 100 05/11/17 04:00 40 05/11/17 03:59 100 30 05/11/17 01:04 100 30 05/11/17 00:00 96.9 67 16 109/57 (74) 100 05/11/17 00:00 40 05/10/17 20:23 100 40 05/10/17 20:00 97.6 65 16 117/58 (77) 100 05/10/17 20:00 69 05/10/17 20:00 40 05/10/17 18:00 68 05/10/17 16:09 99 40 05/10/17 16:00 40 05/10/17 16:00 98.5 73 16 104/60 (75) 100 05/10/17 16:00 73 05/10/17 14:00 72 05/10/17 12:58 100 40 05/10/17 12:00 72 05/10/17 12:00 97.5 72 27 78/48 (58) 96 05/10/17 12:00 40 (Stacie Amado) -: 05/07/17 0435 05/11/17 0509 Imaging Last Impressions Chest X-Ray 05/07/17 0000 Signed Impressions: Service Date/Time: April 14:05 - CONCLUSION: Tracheostomy tube now in place. No other significant interval change. David Meade MD Renal Ultrasound 05/05/17 0000 Signed Impressions: Service Date/Time: Friday, May 05, 2017 20:08 - CONCLUSION: 1. Mild hydronephrosis. Echogenic kidneys characteristic of mild medical renal disease. Lalo Loo MD Head CT 05/01/17 0927 Signed Impressions: Service Date/Time: Monday, May 01, 2017 11:52 - CONCLUSION: 1. Mild interval improvement in left subdural hematoma. 2. 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 3. No new hemorrhage or mass effect. Simon Haley MD Upper Extremity Ultrasound 04/25/17 0000 Signed Impressions: Service Date/Time: Tuesday, April 25, 2017 11:44 - CONCLUSION: No evidence of right upper extremity DVT. David Meade MD Cervical Spine CT 04/12/17 0000 Signed Impressions: Service Date/Time: Wednesday, April 12, 2017 17:36 - CONCLUSION: Degenerative spondylosis without any significant compromise to the thecal sac or the exiting nerve roots. Maria Guadalupe Alvarado MD Tubes & Lines: Vas-Cath, Munoz Medication Review Current Medications Medications (Trade) Dose Ordered Sig/Ashli Route Start Time Stop Time Status Last Admin (Keppra) 500 mg Q12HR PO 04/12/17 21:00 Future Hold 04/14/17 09:56 (Aricept) 10 mg HS PO 04/12/17 21:00 Future Hold 04/17/17 21:48 (Pravachol) 40 mg DAILY PO 04/13/17 09:00 05/11/17 08:22 (Zoloft) 150 mg DAILY PO 04/13/17 09:00 Future Hold 04/18/17 09:11 (Desyrel) 100 mg HS PO 04/12/17 21:00 Future Hold 04/13/17 20:18 (NS Flush) 2 ml UNSCH PRN IV FLUSH 04/12/17 20:30 (NS Flush) 2 ml BID IV FLUSH 04/12/17 21:00 05/11/17 08:22 (Zofran Inj) 4 mg Q6H PRN IV PUSH 04/12/17 20:30 04/14/17 03:35 Miscellaneous Information 1 Q361D XX 04/12/17 20:30 (Chlorhexidine 2% Cloth) Taper DAILY@04 TOP 04/13/17 04:00 04/09/18 03:59 (Chlorhexidine 2% Cloth) 3 pack UNSCH PRN TOP 04/12/17 20:30 (Julia-Colace) 1 tab BID PO 04/12/17 21:00 05/11/17 08:22 (Milk Of Magnesia Liq) 30 ml Q12H PRN PO 04/12/17 20:30 (Senokot) 17.2 mg Q12H PRN PO 04/12/17 20:30 (Dulcolax Supp) 10 mg DAILY PRN RECTAL 04/12/17 20:30 05/03/17 09:12 (Lactulose Liq) 30 ml DAILY PRN PO 04/12/17 20:30 (Apresoline Inj) 20 mg Q4H PRN IV PUSH 04/14/17 12:30 05/02/17 15:39 (Lopressor) 12.5 mg Q12HR PO 04/19/17 09:00 Future hold 05/11/17 08:22 (Pill Splitter) 1 ea UNSCH PRN OTHER 04/19/17 09:00 (Sodium Chloride) 2 gm DAILY NG 04/19/17 14:00 Future Hold (NovoLOG SUPPLEMENTAL SCALE) 1 Q6HR SQ 04/21/17 18:00 05/11/17 06:38 (D50w (Vial) Inj) 25 ml UNSCH PRN IV 04/21/17 14:15 04/23/17 05:22 (Glucagon Inj) 1 mg UNSCH PRN IM/SQ 04/21/17 14:15 (Cathflo Activase Inj) 2 mg Q2H PRN INTRACATH 04/21/17 14:15 04/22/17 03:39 (Free Water) 300 ml Q4HR G-TUBE 04/29/17 12:00 05/11/17 08:00 (Albuterol Neb) 2.5 mg Q2HR NEB PRN NEB 04/30/17 09:45 (Lacrilube Opht Oint) 1 applic Q12HR EACH EYE 04/30/17 21:00 05/11/17 08:21 (Magic Mouthwash Adult Liq) 10 ml Q6H PRN SWISH-SPIT 05/02/17 15:45 05/03/17 09:09 (Pepcid) 10 mg BID NG 05/03/17 21:00 05/11/17 08:22 Ceftriaxone Sodium 1000 mg/ Sodium Chloride 100 ml @ 200 mls/hr Q12H IV 05/03/17 18:00 05/11/17 06:09 (Neurontin) 300 mg DAILY PO 05/05/17 09:00 05/11/17 08:22 Sodium Chloride 1,000 ml @ 0 mls/hr Q0M PRN OTHER 05/06/17 15:20 05/07/17 11:30 Sodium Chloride 1,000 ml @ 200 mls/hr Q5H PRN IV 05/06/17 15:20 Sodium Chloride 1,000 ml @ 0 mls/hr Q0M PRN OTHER 05/06/17 15:20 (Mannitol Inj) 12.5 gm UNSCH PRN IV 05/06/17 15:30 Albumin Human 100 ml @ 60 mls/hr UNSCH PRN IV 05/06/17 15:30 05/09/17 11:10 (NS Flush) 5 ml UNSCH PRN IV FLUSH 05/06/17 15:30 (Heparin Inj) UNSCH PRN .XX 05/06/17 15:30 05/09/17 08:50 (Gentamicin Inj) 20 mg UNSCH PRN OTHER 05/06/17 15:30 05/09/17 08:51 (Zofran Inj) 4 mg UNSCH PRN IV PUSH 05/06/17 15:30 (Tylenol) 650 mg UNSCH PRN PO 05/06/17 15:30 (Benadryl) 25 mg UNSCH PRN PO 05/06/17 15:30 (Nitrostat Sl) 0.4 mg UNSCH PRN SL 05/06/17 15:30 (Catapres) 0.1 mg UNSCH PRN PO 05/06/17 15:30 (Gelfoam 12 Mm/7 Mm Top) 1 foam UNSCH PRN TOP 05/06/17 15:30 (Detrol) 2 mg BID PO 05/07/17 21:00 05/11/17 08:22 (fentaNYL INJ) 50 mcg Q1H PRN IV PUSH 05/10/17 11:15 Fentanyl Citrate 250 ml @ 5 mls/hr TITRATE PRN IV 05/10/17 11:15 05/11/17 00:00 (Tylenol 650 Mg/ 20 ml Liq) 650 mg Q6H PRN NG 05/10/17 11:30 (Stacie Amado) Physical Exam General Appearance: Comfortable (Stacie Amado) Pulmonary Resp Exam: Diminished Breath Sounds (Stacie Amado) Cardiology CV Exam: Regular, Murmur (Stacie Amado) Gastrointestinal/Abdomen GI Exam: Soft, Non-Tender (Stacie Amado) Extremeties Extremities Exam: Moderate Edema, Pitting Edema (significant in BUE) (Stacie Amado) Neurologic Neuro Exam: Obtunded (Stacie Amado) Assessment/Plan Problem List: (1) Acute kidney insufficiency ICD Codes: N28.9 - Disorder of kidney and ureter, unspecified Status: Acute Plan: Apparently the patient is receiving bladder irrigation and this has been documented in the urine output so documented volume not reliable HD today for fluid removal. Will tentatively keep MWF schedule Phosphorus elevated & potassium has been running high despite dialysis. Would appreciate dietary recommendations on tube feedings to help regulate this. I believe that this patient is a poor long-term dialysis candidate as discussed with the daughter but hopefully renal recovery will occur. If not I believe further discussion would be indicated regarding patient's quality of life and continuance of dialysis. Medications should be adjusted for the patient's estimated GFR if clinically indicated. Avoid agents with significant potential for nephrotoxicity possible including NSAIDs for analgesia, iodine contrast agents. Gadolinium is contraindicated if the GFR is below 30. (2) Metabolic acidosis ICD Codes: E87.2 - Acidosis Status: Acute Plan: Resolved with HD (3) Hyperkalemia ICD Codes: E87.5 - Hyperkalemia Status: Acute Plan: Will improve with HD As above (4) Cranial diabetes insipidus ICD Codes: E23.2 - Diabetes insipidus Plan: Patient currently oliguric. (5) Subdural hematoma ICD Codes: I62.00 - Nontraumatic subdural hemorrhage, unspecified (Stacie Amado) Plan The exam, history, and the medical decision-making described in the above note were completed with the assistance of the PA-Javi. I reviewed and agree with the findings presented. I attest that I had a [id number] encounter with the patient on the same day, and personally performed and documented my assessment and findings in the medical record. (Pedro Lala MD) Stacie Amado May 11, 2017 11:26 Pedro Lala MD May 11, 2017 15:46
--- NOTE | 2017-05-11 11:36 | HHI.NSPN ---
(Mario Laceyelida JOSEPH) History Chief Complaint: Unable to obtain due to patient's clinical condition. (DeepthiLacho JOSEPH) Interval History 04/28: When seen this morning the patient is lethargic. He did not open his eyes to voice or follow any commands. He did have slight withdrawal of the left upper and both lower extremities to noxious stimulation. He did have facial grimacing to noxious stimulation as well. 04/29: The patient is awake this morning. He is on a nasal cannula. He squeezes with the left hand when a hand is placed in it. He moves both feet to noxious stimulation. He had no movement of the right upper extremity. 04/30: This morning the patient is sitting up in the cardiac chair with his eyes closed. There was no evident eye opening to voice. He was noted to move the left lower extremity spontaneously. He did give a slight squeeze with the left hand to command and appears to have tried to give a thumbs up when asked to. He did move the right lower extremity to noxious stimulation and there was muscle contraction noted to the right forearm to noxious stimulation. 05/01: When seen this morning the patient is intubated and on CPAP. He does not respond to any commands or open his eyes. He does spontaneously move the left upper extremity and both lower to noxious stimulation. There was no response with the right upper. Nursing reports that during the night his systolic blood pressure dropped into the 70s, his respirations were in the 30s and he was tachycardiac in the 130s. He was therefore emergently intubated. He was given three litres of intravenous fluids and his systolic blood pressure improved. 05/02: The patient is seen moving both lower extremities spontaneously. He remains intubated and mechanically ventilated. He is not on any sedation. His daughter is present and states that he did open his eyes briefly to her voice and that he was squeezing her hand. He did squeeze this practitioner's hand to command and moved both lower extremities to noxious stimulation. There was no movement of the right upper. 05/03: The patient is lethargic when seen. He does not have any sedation infusing. He remains intubated but is on CPAP. He does spontaneously move the lower extremities but is not following any commands. He did move his extremities to noxious stimulation as well as have facial grimacing. 05/04: This morning the patient is lethargic when seen. He continues to be intubated and is now mechanically ventilated. He does squeeze twice with the left hand and moves all extremities to noxious stimulation. He is not on any sedation. 05/05: When seen the patient is lethargic. He remains intubated and on PCV settings. He opened his eyes to voice. There was some questionable movement of the feet to command but he did withdraw the lower extremities to noxious stimulation. He didn't follow commands with the left upper but did have some movement with noxious stimulation. 05/06: The patient is seen moving both lower extremities spontaneously this morning. He does not appear to follow commands but has a strong withdrawal response with the lower extremities to noxious stimulation. The left upper response is weak. No response with the right upper. Nursing reports that Palliative Care spoke with the family and they want to continue aggressive care measures at present to include dialysis. 05/07: Dialysis is at the bedside when the patient was seen this morning. The Clinical Field Specialist placed a temporary haemodialysis catheter late yesterday afternoon. The patient still remains lethargic. He is spontaneously moving the lower extremities as well as to noxious stimulation. He does move the left upper to noxious stimulation. With noxious stimulation to the right upper the patient pulls both knees up strongly. 05/08: The patient is lethargic when seen. He does not have any sedation infusing. He was trached yesterday and remains mechanically ventilated. He had a PEG tube placed this morning prior to being seen. He was seen spontaneously moving both feet. He did have withdrawal of the lower extremities to local noxious stimulation but extension with central. There was no response to any stimulation with the upper extremities. 05/09: Patient opens eyes to stimulation. Pupils 3 mm bilaterally reactive bilaterally. Patient is intubated. 05/10: Patient opens eyes briefly to voice. Pupils 3 mm bilaterally reactive bilaterally. He spontaneously moves his left side more than the right side. Trach in place on vent. 05/11: When seen this morning the patient is lethargic, sitting up with the bed in chair mode. He does move the left upper spontaneously. There is partial eye opening to voice. He remains trached and on the vent. Nursing states that the patient withdraws for him on the left side and right lower. He did say that the patient is only able to last a very short time on CPAP. (Lacho Lacey) System Review Comments Unable to obtain due to patient's clinical condition. (Lacho Lacey) Exam Results 05/09/17 05/09/17 05/10/17 05/10/17 05/11/17 05/11/17 06:00 18:00 06:00 18:00 06:00 18:00 Intake Total 1502 ml 1720 ml 987 ml 900 ml 2332 ml 100 ml Output Total 0 ml 3625 ml 1500 ml 725 ml 400 ml Balance 1502 ml -1905 ml -513 ml 175 ml 1932 ml 100 ml IV Total 602 ml 100 ml 445 ml 100 ml Tube Feeding 0 ml 720 ml 587 ml 687 ml Tube Irrigant 900 ml 1200 ml Other 900 ml 900 ml 400 ml Output Urine Total 0 ml 625 ml 1500 ml 725 ml 400 ml Hemodialysis 3000 ml # Bowel Movements 0 1 0 Vital Signs Date Time Temp Pulse Resp B/P (MAP) Pulse Ox O2 Delivery O2 Flow Rate FiO2 05/11/17 08:04 99 30 05/11/17 04:00 97.8 67 16 102/52 (69) 100 05/11/17 04:00 40 05/11/17 03:59 100 30 05/11/17 01:04 100 30 05/11/17 00:00 96.9 67 16 109/57 (74) 100 05/11/17 00:00 40 05/10/17 20:23 100 40 05/10/17 20:00 97.6 65 16 117/58 (77) 100 05/10/17 20:00 69 05/10/17 20:00 40 05/10/17 18:00 68 05/10/17 16:09 99 40 05/10/17 16:00 40 05/10/17 16:00 98.5 73 16 104/60 (75) 100 05/10/17 16:00 73 05/10/17 14:00 72 05/10/17 12:58 100 40 05/10/17 12:00 72 05/10/17 12:00 97.5 72 27 78/48 (58) 96 05/10/17 12:00 40 05/10/17 10:00 77 05/10/17 09:10 100 40 05/10/17 09:10 40 05/10/17 08:26 100 40 05/10/17 08:00 40 05/10/17 08:00 88 05/10/17 08:00 98.6 88 20 102/51 (68) 100 05/10/17 04:37 100 40 05/10/17 04:00 98.2 101 16 92/50 (64) 100 05/10/17 04:00 40 05/10/17 03:07 16 05/10/17 00:02 100 40 05/10/17 00:00 98.1 76 16 122/58 (79) 100 05/10/17 00:00 40 05/09/17 20:49 100 40 05/09/17 20:00 86 05/09/17 20:00 98.8 87 17 107/54 (71) 100 05/09/17 20:00 40 05/09/17 18:00 102 05/09/17 16:00 40 05/09/17 16:00 99.3 106 17 117/57 (77) 98 05/09/17 16:00 106 05/09/17 15:35 40 05/09/17 14:35 40 05/09/17 14:35 97 40 05/09/17 14:00 108 05/09/17 12:00 114 05/09/17 12:00 99.2 114 21 142/78 (99) 100 05/09/17 12:00 40 05/09/17 11:51 97 40 05/09/17 10:00 107 05/09/17 08:43 99 40 05/09/17 08:00 105 05/09/17 08:00 100.4 102 18 132/59 (83) 97 05/09/17 08:00 40 05/09/17 04:54 100 40 05/09/17 04:00 99.5 96 17 153/69 (97) 100 05/09/17 04:00 40 05/09/17 00:14 97 40 05/09/17 00:00 98.4 79 16 143/70 (94) 98 1/27/18 00:00 40 05/08/17 20:01 100 40 05/08/17 20:00 98.2 78 16 130/59 (82) 100 05/08/17 20:00 40 05/08/17 20:00 70 05/08/17 18:00 72 05/08/17 16:15 40 05/08/17 16:14 100 40 05/08/17 16:00 98.8 74 16 131/60 (83) 100 05/08/17 16:00 74 05/08/17 16:00 40 05/08/17 14:00 82 05/08/17 12:00 98.6 94 16 119/59 (79) 100 05/08/17 12:00 40 05/08/17 12:00 94 (Lacho Lacey) Physical Examination GENERAL: Lethargic, partial eye opening to voice. No sedation infusing. No distress evident. HEENT: Left craniotomy surgical incision well approximated, no evident drainage , erythema or streaking. Pupils 3 mm sluggish bilaterally. MUSCULOSKELETAL: No clubbing or deformity evident. Moves LUE spontaneously when seen. NEUROLOGICAL: Lethargic, no sedation. Briefly opens eyes to voice. Pupils 3 mm sluggish bilaterally. Nonverbal, trached. Facial grimacing to noxious stimulation. Not following commands. Moves LUE spontaneously but not to command. Withdraws LUE & BLE to local & central noxious stimulation. Trace muscle contraction to RUE w/local noxious stimulation. (Lacho Lacey) Lab, Micro, Other Results Laboratory Tests Test 05/09/17 00:22 05/09/17 06:07 05/10/17 05:50 05/11/17 05:09 Blood Urea Nitrogen 77 MG/DL 79 MG/DL 59 MG/DL 65 MG/DL Creatinine 7.03 MG/DL 7.18 MG/DL 5.58 MG/DL 5.69 MG/DL Random Glucose 117 MG/DL 171 MG/DL 194 MG/DL 183 MG/DL Calcium Level 8.1 MG/DL 8.5 MG/DL 7.8 MG/DL 8.2 MG/DL Sodium Level 139 MEQ/L 136 MEQ/L 140 MEQ/L 138 MEQ/L Potassium Level 5.4 MEQ/L 6.2 MEQ/L 4.8 MEQ/L 5.4 MEQ/L Chloride Level 101 MEQ/L 96 MEQ/L 102 MEQ/L 101 MEQ/L Carbon Dioxide Level 27.7 MEQ/L 25.5 MEQ/L 29.9 MEQ/L 28.5 MEQ/L Anion Gap 10 MEQ/L 15 MEQ/L 8 MEQ/L 9 MEQ/L Estimat Glomerular Filtration Rate 8 ML/MIN 8 ML/MIN 10 ML/MIN 10 ML/MIN Albumin 1.6 GM/DL 1.6 GM/DL 1.7 GM/DL Phosphorus Level 7.9 MG/DL 5.7 MG/DL 5.2 MG/DL (Lacho Lacey) Medical Decision Making Impression and Plan Impression: 1. 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 Dementia 4. Cardiac murmur Patient lethargic, w/o change in neurological status. Afebrile past 24 hours. One episode of hypotension yesterday at noon. Reviewed labs for today. Sodium 138. Hyperkalemia. Hyperphosphataemia w/ interval improvement. eGRF stable but interval increase in creatinine. CT brain demonstrated improvement in the left frontal subdural haematoma and chronic hygromas, no haemorrhage or mass effect. EEG consistent w/severe encephalopathy. KWAME #1 was removed . KWAME #2 removed . POD #27 () s/p: Left frontoparietal craniotomy for evacuation of subacute on chronic subdural hematoma Postoperative Diagnosis: (1) Subdural hematoma, chronic (2) Acute subdural hematoma 1. Left hemisphere subacute on chronic subdural hematoma 2. Acute right frontal subdural hematoma POD #24 () s/p: Revision left frontoparietal craniotomy evacuation of recurrent left hemisphere subdural hematoma Postoperative Diagnosis: (1) Acute subdural hematoma Recurrent left hemisphere subdural hematoma Plan: Primary management per Clinical Field Specialist. Neuro checks. Repeat CT brain for any decline in neuro status. Mechanical DVT prophylaxis. Hold pharmacologic DVT prophylaxis. Stress ulcer prophylaxis. (Lacho Lacey) Attending Statement The exam, history, and the medical decision-making described in the above note were completed with the assistance of the mid-level provider. I reviewed and agree with the findings presented. I attest that I had a [id number] encounter with the patient on the same day, and personally performed and documented my assessment and findings in the medical record. Mr. Hope has moderate right and mild left eye opening to voice and sternal rub. He focuses briefly with his eyes. He grimaces with minimal stimulation. There is slight flexion of the right upper extremity, moderate flexion left upper extremity to deep pain. Tracheostomy and PEG tube are in place Stable neurologic exam versus last week Plan follow-up CT scan 05/12/2017 Continuing supportive care per family wishes. (Sylvester Odom MD) Lacho Lacey May 11, 2017 11:36 Sylvester Odom MD May 11, 2017 17:31
[2017-05-11] MEDS: fentaNYL DRIP 250 ML IV PRN ×2 (12:55)
--- NOTE | 2017-05-11 13:59 | HHI.CCPN ---
Subjective Remarks/Hospital Course 04/12: 71-year-old male presents for evaluation after he fell hitting his head. Per family report they were in the bathroom trying to change his undergarments when he slipped and fell hitting his head. He is not on anticoagulant. The patient is pleasantly confused and patient's daughter states this is his baseline. He has had no altered mental status since the fall. No vomiting. The patient reports a mild headache without radiation. No neck pain or back pain. He has been ambulatory without difficulty since the fall. The CT head performed in the emergency department shows bilateral subdural hematomas in addition to parafalcine subdural hematoma, left frontal and temporal lobe intraparenchymal hemorrhages and subfalcine herniation from [id number]. 04/13: Resting in bed comfortably at the time of my evaluation this morning. Confused, does not know the year. Knows he is in the hospital. Moves all 4 extremity's. Does not appear to be in any acute distress. 04/14: Afebrile. The patient continues to be confused but easily following commands notable systolic ejection murmur, echo pending. Patient scheduled for neurosurgical intervention this afternoon. 04/15: Tmax 99.3. The patient status post craniotomy with evacuation of subdural hematoma last evening, remained intubated, only on sedation with propofol infusion and requiring low-dose phenylephrine to maintain map greater than 65. Sedation was briefly lightened last evening postoperatively, and the patient was extremely agitated. IV fluids changed from D5W to normal saline with [address] brain performed. INR pending. 04/16: Tmax 99.8 Patient agitated during the night , swinging his legs out of the bed while on maximum doses of propofol infusion, fentanyl infusion low-dose added this a.m. Patient's diet advance will begin tube feeds this a.m. The patient was noted to have multifocal PVCs intermittent during the night potassium level 3.2 currently being repleted with K-Phos. 04/17: Tmax 101.6. The patient underwent emergent craniotomy for evacuation of acute recurrent left subdural hematoma last evening. The patient continues on 3 % normal saline, with serial sodium and osmole is being followed. Currently weaning slowly sedation for neuro assessment. Patient noted to have a significant elevation in WBC count of 22, blood cultures urine cultures and sputum cultures obtained. Chest x-ray now showing bilateral lung opacities edema versus possible infectious process being ruled out. Echo revealed patient has severe aortic stenosis with a roommate mean gradient of 44. The patient continues on phenylephrine for vasopressors support at this time. 04/18: Last evening, the patient went into A. fib RVR, heart rate low 100s, with self resolution. This a.m. the patient continues to have sinus rhythm/sinus tachycardia 90-105 with frequent multifocal PVCs. Electrolytes within normal limits. Given the significant medical history for severe aortic stenosis metoprolol 2.5 mg IV for rapid heart rate instituted. The patient continues on phenylephrine infusion for maintenance of a map greater than 65. Propofol is currently being weaned off. EEG revealed last night severe encephalopathy. No change in neurological status but patient still is under sedation patient withdraws to pain bilateral lower extremities and now has spontaneous eye opening intermittently. Leukocytosis notably is resolving. 04/19: Afebrile. Today afternoon the patient was noted to have a seizure, Ativan 1 mg IV push with resolution EEG ordered. Post seizure the patient was noted to have gross hematuria. Coag studies performed within normal limits, fibrinogen level slightly elevated . Creatinine kinase noted to be within normal limits. Hematuria thought to possibly be secondary to acquired von Willebrand's factor secondary to the shear stress from his severe aortic stenosis. DDAVP 2 mcgs IV 1 dose ordered this a.m.. Patient continues on 3% sodium chloride, phenylephrine has been discontinued. 04/20: Remains sedated, orally intubated on mechanical ventilation. Remains on 3 % saline. Off phenylephrine currently. Blood pressure labile. Tolerating tube feeds. 04/21: Remains sedated, orally intubated on mechanical ventilation. Stopping 3% saline. Tolerating tube feeds 04/22: Remains sedated, orally intubated on mechanical ventilation. On Levophed for pressor support. Spiking temperatures. Started on Zosyn yesterday. Continues to have hematuria. One unit PRBCs and fluid bolus ordered. 04/23: Appears to have developed ADRIANNE from osmotic diuresis associated with poorly controlled diabetes. Hyperglycemia exacerbated by dextrose containing solution. Will start constant carb feedings with glucerna, reduce levemir, add SSI coverage, and hydrate to correct fluid depletion. 04/24: Continued serum concentration associated with free water loss. No improvement in neurological function. Suspect osmotic diuresis from elevated glucose but will check urine specific gravity to rule out DI. 04/25: Osmolality improving. Continue DDAVP prn. 04/26: Alertness much improved after Na corrected. Required DDAVP X 2. Gas exchange acceptable and he is strong on CPAP trial. Right arm edematous, ultrasound with no thrombus. 04/27: Extubated > 24 hours ago and breathing comfortably. Protects airway. Electrolytes normalized. Transfer. 04/28: Tolerating extubation but respiratory rate increased, not labored. Osmolality normalized off of DDAVP. 04/29: more somnolent today, but still awake and following commands. sodium mp from 143 to 147 off DDAVP. will restart free water. ROS unobtainable due to patient's baseline mental status. 3-way contreras persists, less hematuria noted. Cr continues to improve. remains stable for transfer to floor. SUBJECTIVE: 04/30: Currently in room 1319 . Resting in sitting position bed. Currently resting in bed in no acute distress. Contreras catheter remains. 05/01: > 5 liters urine with rising BUN/Creatinine - appears to have slipped back into DI. 05/02: Daughter request Palliative Care consult to assist with decision making re continued aggressive care, trach. 05/03: Intermittent diabetes insipidus causing big problems for kidneys. Episodic diuresis unpredictable and between bouts he develops pulmonary edema. Remains very weak and unable to tolerate vent weaning trials. 05/04: Patient continues to deteriorate. He will not survive this hospitalization. 05/05: No improvement. Renal function deteriorating. 05/06: Kidneys continue to deteriorate. Family has decided to continue with aggressive care. They want us to proceed with trach, PEG, and dialysis. Terminal disease process. 05/07: Family has elected to continue with aggressive care. Need and risks of tracheostomy insertion have been discussed with the daughter. She accepts risks , including bleeding and . 05/08: Trach, PEG in place. Will work toward LTAC placement. 05/09: Continuing dialysis with no renal recovery. Ventilator dependent. 05/10: Largely unresponsive. Weak on SBTs. Family recognizes that patient appears to be in pain and they have requested continuous iv analgesia. 05/11: Unresponsive., weak, unable to wean ventilator. Objective Vital Signs Date Time Temp Pulse Resp B/P (MAP) Pulse Ox O2 Delivery O2 Flow Rate FiO2 05/11/17 12:08 30 05/11/17 12:04 100 05/11/17 10:00 72 05/11/17 08:00 98.6 16 119/58 (78) Intake and Output 05/11/17 05/11/17 05/12/17 08:00 16:00 00:00 Intake Total 2182 ml Output Total 400 ml Balance 1782 ml Result Diagram: 05/07/17 0435 05/11/17 0509 Imaging Last Impressions Head CT 04/27/17 0000 Signed Impressions: Service Date/Time: Thursday, April 27, 2017 11:04 - CONCLUSION: 1. Interval removal of the patient's subdural drain. There is still a small amount of subdural hemorrhage remaining along the left frontal cortex. The remainder of the hemorrhage along the parietal is no longer identified. Findings were discussed in detail above. Luis Moreno MD Chest X-Ray 04/26/17 0400 Signed Impressions: Service Date/Time: Wednesday, April 26, 2017 04:12 - CONCLUSION: No significant interval change. Zeferino Hewitt MD Upper Extremity Ultrasound 04/25/17 0000 Signed Impressions: Service Date/Time: Tuesday, April 25, 2017 11:44 - CONCLUSION: No evidence of right upper extremity DVT. David Meade MD Cervical Spine CT 04/12/17 0000 Signed Impressions: Service Date/Time: Wednesday, April 12, 2017 17:36 - CONCLUSION: Degenerative spondylosis without any significant compromise to the thecal sac or the exiting nerve roots. Maria Guadalupe Alvarado MD Objective Remarks GENERAL: 71-year-old Elderly gentleman. SKIN: Warm and dry. No rash HEAD: Atraumatic. Normocephalic. EYES: Pupils equal and round 2 mm bilaterally and reactive. No scleral icterus. No injection or drainage. ENT: No nasal bleeding or discharge. Mucous membranes pink and moist. NECK: Trachea midline. Trach site clean, dry. CARDIOVASCULAR: Regular rate and rhythm. NL S1, S2. 2/6 systolic murmur right upper sternal border RESPIRATORY: No wheezing rales or rhonchi, good terese air movement. GASTROINTESTINAL: Abdomen soft, non-tender, nondistended, no guarding. BS active. PEG site clean, minimal serous drainage. : Contreras catheter in place MUSCULOSKELETAL: Extremities without clubbing, cyanosis. Right arm with resolving gross edema. NEUROLOGICAL: Moves 4 limbs weakly. Withdraws to pain in all 4 extremities. Otherwise largely unresponsive. Procedures /2-left frontoparietal craniotomy with evacuation of subacute on chronic SDH 04/17-@ 0000 emergent craniotomy with evacuation of acute recurrent left subdural hematoma A/P Assessment and Plan NEURO/PSYCH TBI -Subdural hematoma S/P Left frontoparietal craniotomy with evacuation of subacute on chronic SDH S/P Emergency revision/evacuation of acute recurrent left subdural hematoma Acute encephalopathy- resolving slowly Dementia disorder NOS Depression -Neurosurgery following. Dr. Odom - Neuro checks per protocol - Repeat CT head per neurosurgery-stable acute subdural hematoma within frontal regions, bilateral 5 mm subfalcine herniation to the right - Seizure prophylaxis with levetiracetam has been discontinued GBG discontinued 04/26 - 04/18 EEG-severe encephalopathy avoid long-acting sedating meds continue home gabapentin. 400 mg 3 times a day Trazodone 100 mg at night, sertraline 150 mg daily and donepezil 10 mg a old discontinued secondary QTc prolongation Acetaminophen 650 mg by NG every 6 hours when necessary fever Continuing episodic DI RESP: COPD Acute hypoxic and hypercarbic respiratory failure - resolving. Nasal cannula to maintain saturations greater than equal to 90% Incentive spirometry while awake Albuterol/ipratropium aerosols every 6 hours with albuterol aerosols 2 hours. Dyspnea - Extubated 04/26. - aggressive pulmonary toilet with a cappella/CPAP incentive spirometry - PRVC vent mode 04/30 CV: Severe Hypotension- -resolved. Sinus tachycardia- resolved. Essential hypertension -/2 EKG prolonged QT 475, continue close monitoring - 04/16 Echo-s Normal left ventricular size. Severe concentric left ventricular hypertrophy. The left ventricular systolic function is low normal with an estimated ejection fraction in the range of 50- 55%. Trace aortic valve regurgitation. Severe aortic valve stenosis. Moderate thickening of the aorticv alve leaflets. Aortic valve mean gradient is 44 mmHg. - Repeat monitoring manager QTc-holding benazepril and sertraline and donepezil Continue valsartan 80 mg by mouth daily for hypertension/home medication Started on metoprolol tartrate twice a day for hypertension GI: Acute protein calorie Malnutrition - severe - Continue tube feeds Glucerna 1.5 with goal 60cc/hr Famotidine 20 mg by 2 twice a day for bowel regimen Docusate sodium/senna 1 tablet twice a day for bowel regimen : Hematuria Maintain Contreras Dr. Woods has followed Neurology recommends replace Contreras catheter with a 18 [place] coud and irrigate when necessary clots (previously with a 14 [place]an catheter) Continue tolterodine 4 mg by mouth daily for management of bladder spasms Holding trospium 20 mg twice a day ENDO: Diabetes mellitus - improved control. Central Diabetes Insipidus - Hold metformin 500 mg daily/home medication - Insulin sliding scale Novulog -high dose dose regimen, 25 units sliding scale past 24 hours Currently on insulin detemir 20 units twice a day - Unable to get clear urine due to bladder bleed. - Responding well to DDAVP, now stopped 04/28. Currently on free water 300mL po q4h - daily bmp to check sodium - Restart DDAVP ID: Septic shock- resolved. Pneumonia - resolved. Bacteremia- resolved. 04/19-blood cultures-staph intermedius 04/14 sets - contaminant 04/20 - Sputum cultures with e. coli, klebisella. s/p full course of Augie/ tazobactam 04/21 - 04/27. monitor off abx for fever, signs of infection. HEME: Last CBC 04/25. Leukocytosis. Recheck in a.m. 05/01 FEN: Hypernatremia See above treatment plan Continue free water 300 cc every 4 hours. Recheck BMP in a.m. Replace electrolytes as clinically indicated HD started 05/06 [facility] PT evaluate and treat DVT GI prophylaxis - Teds SCDs - No pharmacological DVT prophylaxis due to subdural hematoma - Pepcid BID Overall impression: Family continues to want aggressive care. They understand his chances of survival and return to a meaningful existence are very small. LTAC placement pending. Roland Figueroa MD May 11, 2017 13:59
--- NOTE | 2017-05-11 16:29 | HHI.HCPN ---
Reason for visit a. To assist with evaluation and management of symptoms including: dyspnea, pain, encephalopathy b. To assist medical decision maker(s) with: better understanding of current medical conditions; weighing benefits/burdens of medical treatment options; making medical treatment decisions. . . Subjective/Interval History No significant changes over past weekend. Today RN reports that pt less responsive today than he has been - prev localizing, withdrawal to pain, poss spontaneous movements. Nursing reports minimal withdrawal to stimuli today. Not tolerating CPAP trials for prolonged time. Ongoing HD, no improvement in renal function. Bx from EGD 05/08 pending. Pt tolerating TF, BM yesterday. CM working on LTAC placement. Pain per nursing nonverbal score 0-6. started on fentanyl drip yesterday, now at 100 mcgs/hr [dual visit w Kiara JOSEPH] Pt seen in room no visitors present. Minimally responsive to stimuli. +grimaces with touch to BUE. Withdraws to pain stimuli BLE. RU hand clenched, grimaces with finger extension slight withdrawal to pain. Left upper rigid, grimaces with attempted extension, slight withdrawal to pain. Very slight blink/eye flutter w pain. . Family/friend interactions following exam call to lucien Winter- review of current conditions, assessment, general prognosis. She was in to see pt last night. She asks about white count, she was told "it is better" review last CBC several days ago, WBC stable,WNL no signs of infection. Review of current neuro assessment,she tells me pt has been less responsive. She states that Dr Odom was optimistic based on recent improvements and she wonders why pt had not continued to improve. Gently explore SDH/head injury on top of underlying dementia, and that we would want to see consistent alertness, responsiveness etc, and it does not appear he will make a full neurologic recovery, not clear how full of a neurologic recovery he will make based on current assessments. She asked questions RE renal function and if pt will require HD forever. Explore that nephrology still following, BUN/ creatinine still elevated /not improving between HD. Not known if renal function will improve, pt w underlying hx renal disease. All questions answered , provided her with palliative contact information. . Advance Directives Living Will: Copy in medical record Durable Power of [employer] Consultant: Copy in medical record (does not include health care decisions. ) Advance Directive Specifics Date completed: 12/16/16 . Health Care Surrogate(s): Patient is not capacitated to make his own health care decisions, will not regain capacity given underlying dementia. Has Living will and POA, neither include designation of healthcare surrogate. Contacted his director reactor projects who reports HCS was never designated. . According to [place] statues, health care proxy decision-making falls to the majority of patient's 4 adult children. . Documented care wishes: Standard living will. . Objective Vital Signs Date Time Temp Pulse Resp B/P (MAP) Pulse Ox O2 Delivery O2 Flow Rate FiO2 05/11/17 14:00 66 05/11/17 12:08 30 05/11/17 12:04 100 30 05/11/17 12:00 81 05/11/17 12:00 40 05/11/17 12:00 98.8 81 18 112/57 (75) 96 05/11/17 10:00 72 05/11/17 08:04 99 30 05/11/17 08:00 73 05/11/17 08:00 40 05/11/17 08:00 98.6 73 16 119/58 (78) 97 05/11/17 04:00 97.8 67 16 102/52 (69) 100 05/11/17 04:00 40 05/11/17 03:59 100 30 05/11/17 01:04 100 30 05/11/17 00:00 96.9 67 16 109/57 (74) 100 05/11/17 00:00 40 05/10/17 20:23 100 40 05/10/17 20:00 97.6 65 16 117/58 (77) 100 05/10/17 20:00 69 05/10/17 20:00 40 05/10/17 18:00 68 05/10/17 16:09 99 40 05/10/17 16:00 40 05/10/17 16:00 98.5 73 16 104/60 (75) 100 05/10/17 16:00 73 Intake & Output 05/11/17 05/11/17 07:00 19:00 Intake Total 2432 ml Output Total 400 ml Balance 2032 ml IV Total 545 ml Tube Feeding 687 ml Tube Irrigant 1200 ml Output Urine Total 400 ml Physical Exam CONSTITUTIONAL/GENERAL: This is an elderly, frail, patient, on mechanical ventilation. TUBES/LINES/DRAINS: ,trach; PEG; PIV bilateral, Vas-cath right jugular vein; Munoz c CBI, SCD's. SKIN: No jaundice, rashes, or lesions. healing incision left parietal head, + scab. Skin warm dry. HEAD: craniotomy surgical incision healing Lt head ENT: trach site healing well. CARDIOVASCULAR: Regular rate and rhythm, systolic murmur noted right sternal border. RESPIRATORY/CHEST: lungs clear to auscultation.respirations unlabored via trach to mech vent GASTROINTESTINAL: Abdomen soft, nondistended. Bowel sounds hypoactive GENITOURINARY: Without palpable bladder distension. Munoz catheter in place.+ CBI in place, clear light yellow output MUSCULOSKELETAL: Extremities with edema. No mottling or clubbing. NEUROLOGICAL: When extremities are moved he grimaces. Withdraws to pain stimuli BUE, BLE. Does not follow commands. Slight eye flutter/blink to pain stimuli PSYCHIATRIC: Unable to assess due to level of responsiveness. . . Diagnostic Tests Laboratory Laboratory Tests Test 05/09/17 00:22 05/09/17 06:07 05/10/17 05:50 05/11/17 05:09 Blood Urea Nitrogen 77 MG/DL (7-18) 79 MG/DL (7-18) 59 MG/DL (7-18) 65 MG/DL (7-18) Creatinine 7.03 MG/DL (0.60-1.30) 7.18 MG/DL (0.60-1.30) 5.58 MG/DL (0.60-1.30) 5.69 MG/DL (0.60-1.30) Random Glucose 117 MG/DL (74-106) 171 MG/DL (74-106) 194 MG/DL (74-106) 183 MG/DL (74-106) Calcium Level 8.1 MG/DL (8.5-10.1) 8.5 MG/DL (8.5-10.1) 7.8 MG/DL (8.5-10.1) 8.2 MG/DL (8.5-10.1) Sodium Level 139 MEQ/L (136-145) 136 MEQ/L (136-145) 140 MEQ/L (136-145) 138 MEQ/L (136-145) Potassium Level 5.4 MEQ/L (3.5-5.1) 6.2 MEQ/L (3.5-5.1) 4.8 MEQ/L (3.5-5.1) 5.4 MEQ/L (3.5-5.1) Chloride Level 101 MEQ/L (98-107) 96 MEQ/L (98-107) 102 MEQ/L (98-107) 101 MEQ/L (98-107) Carbon Dioxide Level 27.7 MEQ/L (21.0-32.0) 25.5 MEQ/L (21.0-32.0) 29.9 MEQ/L (21.0-32.0) 28.5 MEQ/L (21.0-32.0) Anion Gap 10 MEQ/L (5-15) 15 MEQ/L (5-15) 8 MEQ/L (5-15) 9 MEQ/L (5-15) Estimat Glomerular Filtration Rate 8 ML/MIN (>89) 8 ML/MIN (>89) 10 ML/MIN (>89) 10 ML/MIN (>89) Albumin 1.6 GM/DL (3.4-5.0) 1.6 GM/DL (3.4-5.0) 1.7 GM/DL (3.4-5.0) Phosphorus Level 7.9 MG/DL (2.5-4.9) 5.7 MG/DL (2.5-4.9) 5.2 MG/DL (2.5-4.9) Result Diagram: 05/07/17 0435 05/11/17 0509 Imaging Last Impressions Chest X-Ray 05/07/17 0000 Signed Impressions: Service Date/Time: April 14:05 - CONCLUSION: Tracheostomy tube now in place. No other significant interval change. David Meade MD Renal Ultrasound 05/05/17 0000 Signed Impressions: Service Date/Time: Friday, May 05, 2017 20:08 - CONCLUSION: 1. Mild hydronephrosis. Echogenic kidneys characteristic of mild medical renal disease. Lalo Loo MD Head CT 05/01/17 0927 Signed Impressions: Service Date/Time: Monday, May 01, 2017 11:52 - CONCLUSION: 1. Mild interval improvement in left subdural hematoma. 2. 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 3. No new hemorrhage or mass effect. Simon Haley MD Upper Extremity Ultrasound 04/25/17 0000 Signed Impressions: Service Date/Time: Tuesday, April 25, 2017 11:44 - CONCLUSION: No evidence of right upper extremity DVT. David Meade MD Cervical Spine CT 04/12/17 0000 Signed Impressions: Service Date/Time: Wednesday, April 12, 2017 17:36 - CONCLUSION: Degenerative spondylosis without any significant compromise to the thecal sac or the exiting nerve roots. Maria Guadalupe Alvarado MD Procedures * PEG tube placement 05/08/17 * Tracheostomy 05/07/17 * 05/06/17 --dialysis catheter placed * 05/01/17 - reintubated * 04/26/17 - extubated * 04/19/17 - right subclavian central line placed * 04/17/17 - revision of left frontoparietal craniotomy evacuation of recurrent left hemisphere subdural hematoma notes indicate findings of moderate densely clotted acute recurrent left hemisphere subdural hematoma primarily in the frontal region. 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 . Assessment and Plan Disease Oriented Problem List: (1) Intracranial hemorrhage (2) Pneumonia Comment: Cutluring Klebsiella (3) Aortic stenosis Comment: Echocardiogram describes this as "severe" aortic stenosis. . (4) Hypoalbuminemia (5) Dementia (6) Acute kidney injury Comment: Worsening. Nephrology involved. VasCath placed right jugular and hemodialysis started. Cause of the kidney injury unclear -- obstruction? sepsis ? . (7) Anemia Symptom Scale: (1) Pain 0-10 Scale: Unable to quantify Comment: No known prior pain syndromes. Patient unable to quantify or qualify pain. Furrowed brow/grimacing, appears painful to minimal stimulation, likely secondary to recent surgeries, confusion, tubes, oral ulcerations, peripheral neuropathy, general debility and bedbound status. . (2) Encephalopathy 0-10 Scale: Unable to quantify Comment: likely to underlying dementia, subdural hematomas, surgery, worsening renal function. . (3) Dyspnea 0-10 Scale: Unable to quantify Comment: Remains on mechanical ventilation Pertinent Non-Medical Issues Psychosocial: . Has 4 adult children (Maggy, Magalie, Dale and Hua). Lives with daughter Maggy in [place]. Spiritual: unknown. Legal: : Patient is not capacitated to make his own health care decisions, will not regain capacity given underlying dementia. Has Living will and POA, neither include designation of healthcare surrogate. Contacted his director reactor projects who reports HCS was never designated. . According to [place] statues, health care proxy decision-making falls to the majority of patient's 4 adult children. Ethical issues impacting care: no known concerns at this time. . Important Contacts * Maggy Saleh, daughter: [phone] lives with patient in [place] * Magalie Gutierrezk, daughter: [phone] lives in [place] * Dale, son: lives in [place]: [phone] * Hua, son: lives in [place]: [phone] . Prognosis Mr. Hope is a 71-year-old male with multiple medical comorbidities including COPD, dementia, diabetes, severe aortic stenosis. He has had ongoing trajectory of decline in the months leading up to hospitalization, admitted with bilateral subdural hematoma's, parafalcine subdural hematoma, left frontal and temporal lobe intraparenchymal hemorrhages status post surgery without evidence of neurologic improvement. Unable to be weaned from mechanical ventilation, worsening renal function (now on hemodialysis) and pneumonia. Low albumin. Patient is at high risk of hospital . Should he survive the hospital , will likely be bed/chair bound in alf setting dependent for all ADLs. Patient would be a candidate for hospice care at such time that legal decision makers feel the patient would want to transition to "comfort measures only." . Code Status: Full Code Plan ==Decision Maker: Patient is not capacitated to make his own health care decisions. At this point there is no reasonable probability that he will regain capacity given underlying dementia. Has Living will and POA, neither include designation of healthcare surrogate. Contacted his director reactor projects who reports HCS was never designated. . According to [place] statues, health care proxy decision-making falls to the majority of patient's 4 adult children. Though all 4 children want to participate and are equal decision makers, they have opted to have daughter Maggy Saleh ([phone]) serve as the spokesperson and "consent-signer" for them. ==FULL CODE ==Goals of medical treatment: Per family conference call of 05/06/17 all children agree that in spite of current condition and minimal chance of meaningful recovery the patient would want ongoing aggressive care including trach/PEG/dialysis/ and resuscitation attempts. Family seems intent on giving patient many weeks to see if he is able to show signs of meaningful neuro improvement. However, they may reconsider if there is another major setback -- e.g. new intracranial bleed; VA; stroke; inability to tolerate dialysis; etc. update dtr Maggy. Goals aggressive, family remains hopeful pt may make some neurologic improvement. ==SYMPTOMS: * Pain: Comfortable appearing at rest when left alone. Appears painful ( grimacing) to minimal stimulation such as any movement of his extremities/ hands. Pain likely secondary to recent procedures; oral ulcerations, peripheral neuropathy, general debility and bedbound status. On gabapentin. has been started on fentanyl drip at 100mcg hr per critical care.will cont to evaluate * Dyspnea: Patient with underlying copd and now with pneumonia. Dyspnea currently being managed with mechanical ventilation, nebs. s/p tracheostomy. Not tolerating CPAP trial for prolonged periods. Poss may require LTAC for longer term weaning. * Encephalopathy: likely due to underlying dementia complicated by subdural hematomas, surgery, worsening renal function. No new medication recommendations at this time. ==Palliative care will continue to follow to assist with symptom management and to further clarify goals of medical treatment as the clinical course evolves. . Attestation To help prompt me to consider important information that might be impacting today's encounter and assessment, information from prior notes written by myself or my colleagues may have been "brought forward" into today's note. My signature on this note, however, is an attestation that I personally performed the exam, history, and/or decision-making noted today, and, unless otherwise indicated, the interactions with patient, family, and staff as well as the review of records all occurred today. I also attest that the listed assessment and stated plan reflect my best clinical judgment today based on the combination of historical information, prior notes, and today's exam/ interactions. When time spent is documented, it refers only to time spent today by the signer, or if indicated, combined time spent today by collaborating physician/nurse practitioner. Marlee Hutchison May 11, 2017 16:29
[2017-05-11] MEDS: GENTAMICIN SULFATE 20 MG/2 ML VIAL OTHER PRN (21:51)
[2017-05-12] VITALS (20 sets, daily range): BP systolic 98–128; BP diastolic 51–67; PULSE 66–86; RESP 16; TEMP 98.1–99.2; O2SAT 96–100
[2017-05-12] MEDS: SODIUM CHLORIDE 0.9% FLUSH 10 ML FLUSH IV FLUSH SCH ×3 (00:41→20:38)
[2017-05-12] MEDS: ARTIFICIAL TEARS OPTH OINT 3.5 APPLIC/3.5 GM TUBO EACH EYE SCH ×3 (00:41→20:38)
[2017-05-12] MEDS: FAMOTIDINE 20 MG TAB NG SCH ×3 (00:42→20:39)
[2017-05-12] MEDS: DOCUSATE SODIUM 50 MG/SENNA 8.6 MG TAB PO SCH ×3 (00:42→20:38)
[2017-05-12] MEDS: TOLTERODINE TARTRATE 2 MG TAB PO SCH ×3 (00:42→20:39)
[2017-05-12] MEDS: INSULIN ASPART SUPPLEMENTAL SCALE SQ SCH ×4 (00:43→18:00)
[2017-05-12] MEDS: METOPROLOL TARTRATE 25 MG TAB PO SCH ×3 (00:49→20:39)
[2017-05-12] MEDS: FREE WATER G-TUBE SCH ×6 (04:00→20:00)
[2017-05-12] MEDS: CHLORHEXIDINE GLUCONATE 2 % 1 PACK (2 CLOTHS) TOP SCH (04:00)
--- NOTE | 2017-05-12 05:14 | RADRPT ---
EXAM DATE/TIME: 05/12/2017 04:33 [facility] COMPARISON: CT BRAIN W/O CONTRAST, May 01, 2017, 11:52. INDICATIONS : Post operative subdural hematoma. RADIATION DOSE: 48.43 CTDIvol (mGy) MEDICAL HISTORY : Cardiovascular disease. Hypertension. Carcinoma, prostate. SURGICAL HISTORY : Craniotomy. ENCOUNTER: Initial ACUITY: 1 day PAIN SCALE: Non-responsive LOCATION: cranial TECHNIQUE: Multiple contiguous axial images were obtained of the head. Using automated exposure control and adj ustment of the mA and/or kV according to patient size, radiation dose was kept as low as reasonably a chievable to obtain optimal diagnostic quality images. DICOM format image data is available electro nically for review and comparison. FINDINGS: Previously noted bilateral subdural hematomas have decreased in size to less than a centimeter in thi ckness both anteriorly and posteriorly. There is previous left craniotomy. No midline shift. No hydro cephalus. No recent infarct. CONCLUSION: 1. Decrease in size of previous bilateral subdural hematomas to less than 1 cm in thickness on the cu rrent examination. Lalo Loo MD on May 12, 2017 at 5:10 Board Certified Radiologist. This report was verified electronically.
[2017-05-12 05:20] LABS: ALBUMIN 1.6 GM/DL (3.4-5.0); BICARBONATE 31.1 MEQ/L (21.0-32.0); CALCIUM 7.8 MG/DL (8.5-10.1); CREATININE 3.92 MG/DL (0.60-1.30); PHOSPHORUS 4.2 MG/DL (2.5-4.9)
[2017-05-12] MEDS: GABAPENTIN 300 MG CAP PO SCH (09:00)
[2017-05-12] MEDS: PRAVASTATIN SOD 40 MG TAB PO SCH (09:00)
--- NOTE | 2017-05-12 10:50 | HHI.NPPN ---
Subjective History of Present Illness This patient is a 71-year-old male who unfortunately cannot provide any history at this time secondary to change in mental status and he is intubated on ventilatory support currently. Apparently the patient sustained a head injury and was admitted to this institution on April 12, 2017. Imaging studies reveal bilateral subdural hematoma. Patient also said to have a history of dementia, diabetes mellitus as well as COPD. His creatinine level was noted to have been 1.08 on May 02, 2016 subsequently deteriorating progressively thereafter it will level of 6.37 today with a potassium of 5.7. Patient also felt to have diabetes insipidus and has been receiving DDAVP. More recently however the patient has become oliguric. Critical care believes that the patient has a poor prognosis and family has been communicating with palliative care with considerations for a DNR CODE STATUS and possible hospice. No decision has been made as yet regarding dialytic support. Interval History No changes (Stacie Amado) Review of Systems General General Remarks Unable to obtain (Stacie Amado) Objective Data Data Vital Signs Date Time Temp Pulse Resp B/P (MAP) Pulse Ox O2 Delivery O2 Flow Rate FiO2 05/12/17 08:12 99 30 05/12/17 08:05 30 05/12/17 08:05 99 Ventilator 30 05/12/17 06:00 86 05/12/17 04:20 100 100 05/12/17 04:02 99 30 05/12/17 04:00 40 05/12/17 04:00 98.3 75 16 98/51 (67) 100 05/12/17 04:00 75 05/12/17 02:00 76 05/12/17 00:00 40 05/12/17 00:00 98.2 80 16 113/55 (74) 96 05/12/17 00:00 80 05/11/17 23:44 96 30 05/11/17 20:32 94 30 05/11/17 20:00 93 05/11/17 20:00 40 05/11/17 20:00 98.0 90 17 119/57 (77) 96 05/11/17 18:00 69 05/11/17 16:00 74 05/11/17 16:00 98.3 74 16 121/58 (79) 100 05/11/17 16:00 40 05/11/17 14:00 66 1/29/18 12:08 30 05/11/17 12:04 100 30 05/11/17 12:00 81 05/11/17 12:00 40 05/11/17 12:00 98.8 81 18 112/57 (75) 96 (Stacie Amado) -: 05/12/17 0338 Imaging Last Impressions Head CT 05/12/17 0600 Signed Impressions: Service Date/Time: Friday, May 12, 2017 04:33 - CONCLUSION: 1. Decrease in size of previous bilateral subdural hematomas to less than 1 cm in thickness on the current examination. Lalo Loo MD Chest X-Ray 05/07/17 0000 Signed Impressions: Service Date/Time: April 14:05 - CONCLUSION: Tracheostomy tube now in place. No other significant interval change. David Meade MD Renal Ultrasound 05/05/17 0000 Signed Impressions: Service Date/Time: Friday, May 05, 2017 20:08 - CONCLUSION: 1. Mild hydronephrosis. Echogenic kidneys characteristic of mild medical renal disease. Lalo Loo MD Upper Extremity Ultrasound 04/25/17 0000 Signed Impressions: Service Date/Time: Tuesday, April 25, 2017 11:44 - CONCLUSION: No evidence of right upper extremity DVT. David Meade MD Cervical Spine CT 04/12/17 0000 Signed Impressions: Service Date/Time: Wednesday, April 12, 2017 17:36 - CONCLUSION: Degenerative spondylosis without any significant compromise to the thecal sac or the exiting nerve roots. Maria Guadalupe Alvarado MD Tubes & Lines: Vas-Cath, Munoz Medication Review Current Medications Medications (Trade) Dose Ordered Sig/Ashli Route Start Time Stop Time Status Last Admin (Keppra) 500 mg Q12HR PO 04/12/17 21:00 Future Hold 04/14/17 09:56 (Aricept) 10 mg HS PO 04/12/17 21:00 Future Hold 04/17/17 21:48 (Pravachol) 40 mg DAILY PO 04/13/17 09:00 05/12/17 09:00 (Zoloft) 150 mg DAILY PO 04/13/17 09:00 Future Hold 04/18/17 09:11 (Desyrel) 100 mg HS PO 12/31/17 21:00 Future Hold 04/13/17 20:18 (NS Flush) 2 ml UNSCH PRN IV FLUSH 04/12/17 20:30 (NS Flush) 2 ml BID IV FLUSH 04/12/17 21:00 05/12/17 09:00 (Zofran Inj) 4 mg Q6H PRN IV PUSH 04/12/17 20:30 04/14/17 03:35 Miscellaneous Information 1 Q361D XX 04/12/17 20:30 (Chlorhexidine 2% Cloth) Taper DAILY@04 TOP 04/13/17 04:00 04/09/18 03:59 (Chlorhexidine 2% Cloth) 3 pack UNSCH PRN TOP 04/12/17 20:30 (Julia-Colace) 1 tab BID PO 04/12/17 21:00 05/12/17 09:00 (Milk Of Magnesia Liq) 30 ml Q12H PRN PO 04/12/17 20:30 (Senokot) 17.2 mg Q12H PRN PO 04/12/17 20:30 (Dulcolax Supp) 10 mg DAILY PRN RECTAL 04/12/17 20:30 05/03/17 09:12 (Lactulose Liq) 30 ml DAILY PRN PO 04/12/17 20:30 (Apresoline Inj) 20 mg Q4H PRN IV PUSH 04/14/17 12:30 05/02/17 15:39 (Lopressor) 12.5 mg Q12HR PO 04/19/17 09:00 Future hold 05/12/17 09:00 (Pill Splitter) 1 ea UNSCH PRN OTHER 04/19/17 09:00 (Sodium Chloride) 2 gm DAILY NG 04/19/17 14:00 Future Hold (NovoLOG SUPPLEMENTAL SCALE) 1 Q6HR SQ 04/21/17 18:00 05/12/17 06:41 (D50w (Vial) Inj) 25 ml UNSCH PRN IV 04/21/17 14:15 04/23/17 05:22 (Glucagon Inj) 1 mg UNSCH PRN IM/SQ 04/21/17 14:15 (Cathflo Activase Inj) 2 mg Q2H PRN INTRACATH 04/21/17 14:15 04/22/17 03:39 (Free Water) 300 ml Q4HR G-TUBE 04/29/17 12:00 05/12/17 08:00 (Albuterol Neb) 2.5 mg Q2HR NEB PRN NEB 04/30/17 09:45 (Lacrilube Opht Oint) 1 applic Q12HR EACH EYE 04/30/17 21:00 05/12/17 09:00 (Magic Mouthwash Adult Liq) 10 ml Q6H PRN SWISH-SPIT 05/02/17 15:45 05/03/17 09:09 (Pepcid) 10 mg BID NG 05/03/17 21:00 05/12/17 09:00 Ceftriaxone Sodium 1000 mg/ Sodium Chloride 100 ml @ 200 mls/hr Q12H IV 05/03/17 18:00 05/11/17 06:09 (Neurontin) 300 mg DAILY PO 05/05/17 09:00 05/12/17 09:00 Sodium Chloride 1,000 ml @ 0 mls/hr Q0M PRN OTHER 05/06/17 15:20 05/07/17 11:30 Sodium Chloride 1,000 ml @ 200 mls/hr Q5H PRN IV 05/06/17 15:20 Sodium Chloride 1,000 ml @ 0 mls/hr Q0M PRN OTHER 05/06/17 15:20 (Mannitol Inj) 12.5 gm UNSCH PRN IV 05/06/17 15:30 Albumin Human 100 ml @ 60 mls/hr UNSCH PRN IV 05/06/17 15:30 05/09/17 11:10 (NS Flush) 5 ml UNSCH PRN IV FLUSH 05/06/17 15:30 (Heparin Inj) UNSCH PRN .XX 05/06/17 15:30 05/09/17 08:50 (Gentamicin Inj) 20 mg UNSCH PRN OTHER 05/06/17 15:30 05/11/17 21:51 (Zofran Inj) 4 mg UNSCH PRN IV PUSH 05/06/17 15:30 (Tylenol) 650 mg UNSCH PRN PO 05/06/17 15:30 (Benadryl) 25 mg UNSCH PRN PO 05/06/17 15:30 (Nitrostat Sl) 0.4 mg UNSCH PRN SL 05/06/17 15:30 (Catapres) 0.1 mg UNSCH PRN PO 05/06/17 15:30 (Gelfoam 12 Mm/7 Mm Top) 1 foam UNSCH PRN TOP 05/06/17 15:30 (Detrol) 2 mg BID PO 05/07/17 21:00 05/12/17 09:00 (fentaNYL INJ) 50 mcg Q1H PRN IV PUSH 05/10/17 11:15 Fentanyl Citrate 250 ml @ 5 mls/hr TITRATE PRN IV 05/10/17 11:15 05/11/17 12:55 (Tylenol 650 Mg/ 20 ml Liq) 650 mg Q6H PRN NG 05/10/17 11:30 (Stacie Amado) Physical Exam General Appearance: Comfortable (Stacie Amado) Pulmonary Resp Exam: Diminished Breath Sounds (Stacie Amado) Cardiology CV Exam: Regular, Murmur (Stacie Amado) Gastrointestinal/Abdomen GI Exam: Soft, Non-Tender (Stacie Amado) Extremeties Extremities Exam: Moderate Edema, Pitting Edema (significant in BUE) (Stacie Amado) Neurologic Neuro Exam: Obtunded (Stacie Amado) Assessment/Plan Problem List: (1) Acute kidney insufficiency ICD Codes: N28.9 - Disorder of kidney and ureter, unspecified Status: Acute Plan: Continue HD MWF I believe that this patient is a poor long-term dialysis candidate as discussed with the daughter but hopefully renal recovery will occur. If not I believe further discussion would be indicated regarding patient's quality of life and continuance of dialysis. Medications should be adjusted for the patient's estimated GFR if clinically indicated. Avoid agents with significant potential for nephrotoxicity possible including NSAIDs for analgesia, iodine contrast agents. Gadolinium is contraindicated if the GFR is below 30. 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 (5) Subdural hematoma ICD Codes: I62.00 - Nontraumatic subdural hemorrhage, unspecified (Stacie Amado) Plan The exam, history, and the medical decision-making described in the above note were completed with the assistance of the PA-C. I reviewed and agree with the findings presented. (Pedro Lala MD) Stacie Amado May 12, 2017 10:50 Pedro Lala MD May 13, 2017 17:35
--- NOTE | 2017-05-12 10:53 | HHI.NSPN ---
(Mario Laceyelida JOSEPH) History Chief Complaint: Unable to obtain due to patient's clinical condition. (DeepthiLacho JOSEPH) Interval History 04/28: When seen this morning the patient is lethargic. He did not open his eyes to voice or follow any commands. He did have slight withdrawal of the left upper and both lower extremities to noxious stimulation. He did have facial grimacing to noxious stimulation as well. 04/29: The patient is awake this morning. He is on a nasal cannula. He squeezes with the left hand when a hand is placed in it. He moves both feet to noxious stimulation. He had no movement of the right upper extremity. 04/30: This morning the patient is sitting up in the cardiac chair with his eyes closed. There was no evident eye opening to voice. He was noted to move the left lower extremity spontaneously. He did give a slight squeeze with the left hand to command and appears to have tried to give a thumbs up when asked to. He did move the right lower extremity to noxious stimulation and there was muscle contraction noted to the right forearm to noxious stimulation. 05/01: When seen this morning the patient is intubated and on CPAP. He does not respond to any commands or open his eyes. He does spontaneously move the left upper extremity and both lower to noxious stimulation. There was no response with the right upper. Nursing reports that during the night his systolic blood pressure dropped into the 70s, his respirations were in the 30s and he was tachycardiac in the 130s. He was therefore emergently intubated. He was given three litres of intravenous fluids and his systolic blood pressure improved. 05/02: The patient is seen moving both lower extremities spontaneously. He remains intubated and mechanically ventilated. He is not on any sedation. His daughter is present and states that he did open his eyes briefly to her voice and that he was squeezing her hand. He did squeeze this practitioner's hand to command and moved both lower extremities to noxious stimulation. There was no movement of the right upper. 05/03: The patient is lethargic when seen. He does not have any sedation infusing. He remains intubated but is on CPAP. He does spontaneously move the lower extremities but is not following any commands. He did move his extremities to noxious stimulation as well as have facial grimacing. 05/04: This morning the patient is lethargic when seen. He continues to be intubated and is now mechanically ventilated. He does squeeze twice with the left hand and moves all extremities to noxious stimulation. He is not on any sedation. 05/05: When seen the patient is lethargic. He remains intubated and on PCV settings. He opened his eyes to voice. There was some questionable movement of the feet to command but he did withdraw the lower extremities to noxious stimulation. He didn't follow commands with the left upper but did have some movement with noxious stimulation. 05/06: The patient is seen moving both lower extremities spontaneously this morning. He does not appear to follow commands but has a strong withdrawal response with the lower extremities to noxious stimulation. The left upper response is weak. No response with the right upper. Nursing reports that Palliative Care spoke with the family and they want to continue aggressive care measures at present to include dialysis. 05/07: Dialysis is at the bedside when the patient was seen this morning. The [facility] placed a temporary haemodialysis catheter late yesterday afternoon. The patient still remains lethargic. He is spontaneously moving the lower extremities as well as to noxious stimulation. He does move the left upper to noxious stimulation. With noxious stimulation to the right upper the patient pulls both knees up strongly. 05/08: The patient is lethargic when seen. He does not have any sedation infusing. He was trached yesterday and remains mechanically ventilated. He had a PEG tube placed this morning prior to being seen. He was seen spontaneously moving both feet. He did have withdrawal of the lower extremities to local noxious stimulation but extension with central. There was no response to any stimulation with the upper extremities. 05/09: Patient opens eyes to stimulation. Pupils 3 mm bilaterally reactive bilaterally. Patient is intubated. 05/10: Patient opens eyes briefly to voice. Pupils 3 mm bilaterally reactive bilaterally. He spontaneously moves his left side more than the right side. Trach in place on vent. 05/11: When seen this morning the patient is lethargic, sitting up with the bed in chair mode. He does move the left upper spontaneously. There is partial eye opening to voice. He remains trached and on the vent. Nursing states that the patient withdraws for him on the left side and right lower. He did say that the patient is only able to last a very short time on CPAP. 05/12: This morning the patient is asleep with the bed in the chair position. He opened his eyes to voice. It appears he did move the right foot twice to command. There was questionable trace movement to the left hand to squeeze to command. He did withdraw both upper and left lower to noxious stimulation. He was noted to have spontaneous eye opening after being seen. (Lacho Lacey) System Review Comments Unable to obtain due to patient's clinical condition. (Lacho Lacey) Exam Results 05/10/17 05/10/17 05/11/17 05/11/17 05/12/17 05/12/17 06:00 18:00 06:00 18:00 06:00 18:00 Intake Total 987 ml 900 ml 2332 ml 1975 ml 1450 ml Output Total 1500 ml 725 ml 400 ml 1200 ml 4500 ml Balance -513 ml 175 ml 1932 ml 775 ml -3050 ml IV Total 445 ml 100 ml Tube Feeding 587 ml 687 ml 975 ml 650 ml Tube Irrigant 900 ml 1200 ml 900 ml 800 ml Other 400 ml Output Urine Total 1500 ml 725 ml 400 ml 1200 ml 1000 ml Hemodialysis 3500 ml # Bowel Movements 1 0 0 0 Vital Signs Date Time Temp Pulse Resp B/P (MAP) Pulse Ox O2 Delivery O2 Flow Rate FiO2 05/12/17 08:12 99 30 05/12/17 08:05 30 05/12/17 08:05 99 Ventilator 30 05/12/17 06:00 86 05/12/17 04:20 100 100 05/12/17 04:02 99 30 05/12/17 04:00 40 05/12/17 04:00 98.3 75 16 98/51 (67) 100 05/12/17 04:00 75 05/12/17 02:00 76 05/12/17 00:00 40 05/12/17 00:00 98.2 80 16 113/55 (74) 96 05/12/17 00:00 80 05/11/17 23:44 96 30 05/11/17 20:32 94 30 05/11/17 20:00 93 05/11/17 20:00 40 05/11/17 20:00 98.0 90 17 119/57 (77) 96 05/11/17 18:00 69 05/11/17 16:00 74 05/11/17 16:00 98.3 74 16 121/58 (79) 100 05/11/17 16:00 40 05/11/17 14:00 66 05/11/17 12:08 30 05/11/17 12:04 100 30 05/11/17 12:00 81 05/11/17 12:00 40 05/11/17 12:00 98.8 81 18 112/57 (75) 96 05/11/17 10:00 72 05/11/17 08:04 99 30 05/11/17 08:00 73 05/11/17 08:00 40 05/11/17 08:00 98.6 73 16 119/58 (78) 97 05/11/17 04:00 97.8 67 16 102/52 (69) 100 05/11/17 04:00 40 05/11/17 03:59 100 30 05/11/17 01:04 100 30 05/11/17 00:00 96.9 67 16 109/57 (74) 100 05/11/17 00:00 40 05/10/17 20:23 100 40 05/10/17 20:00 97.6 65 16 117/58 (77) 100 05/10/17 20:00 69 05/10/17 20:00 40 05/10/17 18:00 68 05/10/17 16:09 99 40 05/10/17 16:00 40 05/10/17 16:00 98.5 73 16 104/60 (75) 100 05/10/17 16:00 73 05/10/17 14:00 72 05/10/17 12:58 100 40 05/10/17 12:00 72 05/10/17 12:00 97.5 72 27 78/48 (58) 96 05/10/17 12:00 40 05/10/17 10:00 77 05/10/17 09:10 100 40 05/10/17 09:10 40 05/10/17 08:26 100 40 05/10/17 08:00 40 05/10/17 08:00 88 05/10/17 08:00 98.6 88 20 102/51 (68) 100 05/10/17 04:37 100 40 05/10/17 04:00 98.2 101 16 92/50 (64) 100 05/10/17 04:00 40 05/10/17 03:07 16 05/10/17 00:02 100 40 05/10/17 00:00 98.1 76 16 122/58 (79) 100 05/10/17 00:00 40 05/09/17 20:49 100 40 05/09/17 20:00 86 05/09/17 20:00 98.8 87 17 107/54 (71) 100 05/09/17 20:00 40 05/09/17 18:00 102 05/09/17 16:00 40 05/09/17 16:00 99.3 106 17 117/57 (77) 98 05/09/17 16:00 106 05/09/17 15:35 40 05/09/17 14:35 40 05/09/17 14:35 97 40 05/09/17 14:00 108 05/09/17 12:00 114 05/09/17 12:00 99.2 114 21 142/78 (99) 100 05/09/17 12:00 40 05/09/17 11:51 97 40 (Lacho Lacey) Physical Examination GENERAL: Drowsy, spontaneous eye opening. No sedation infusing. Trached & on vent. No distress evident. HEENT: Left craniotomy surgical incision well approximated, no evident drainage , erythema or streaking. Pupils 2 mm sluggish bilaterally. MUSCULOSKELETAL: No clubbing or deformity evident. No spontaneous movement. NEUROLOGICAL: Drowsy, no sedation. Spontaneous eye opening. Pupils 2 mm sluggish bilaterally. Nonverbal, trached. Facial grimacing to noxious stimulation. Appears patient did move foot to command on 2 separate occasions. Questionable trace muscle contraction to left hand when asked to squeeze on 2 separate occasions. Withdrew left foot & left hand to local noxious stimulation with trace muscle contraction to RUE. (Lacho Lacey) Lab, Micro, Other Results Recent Impressions Head CT 05/12/17 0600 Signed Impressions: Service Date/Time: Friday, May 12, 2017 04:33 - CONCLUSION: 1. Decrease in size of previous bilateral subdural hematomas to less than 1 cm in thickness on the current examination. Lalo Loo MD Laboratory Tests Test 05/10/17 05:50 05/11/17 05:09 05/12/17 03:38 Blood Urea Nitrogen 59 MG/DL 65 MG/DL 43 MG/DL Creatinine 5.58 MG/DL 5.69 MG/DL 3.92 MG/DL Random Glucose 194 MG/DL 183 MG/DL 204 MG/DL Albumin 1.6 GM/DL 1.7 GM/DL 1.6 GM/DL Calcium Level 7.8 MG/DL 8.2 MG/DL 7.8 MG/DL Phosphorus Level 5.7 MG/DL 5.2 MG/DL 4.2 MG/DL Sodium Level 140 MEQ/L 138 MEQ/L 141 MEQ/L Potassium Level 4.8 MEQ/L 5.4 MEQ/L 4.9 MEQ/L Chloride Level 102 MEQ/L 101 MEQ/L 103 MEQ/L Carbon Dioxide Level 29.9 MEQ/L 28.5 MEQ/L 31.1 MEQ/L Anion Gap 8 MEQ/L 9 MEQ/L 7 MEQ/L Estimat Glomerular Filtration Rate 10 ML/MIN 10 ML/MIN 15 ML/MIN (Lacho Lacey) Medical Decision Making Impression and Plan Impression: 1. 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 Dementia 4. Cardiac murmur Patient drowsy, spontaneous eye opening, appeared to follow command to move right foot, responds to noxious stimulation. Reviewed labs for today. Sodium 141. Hyperkalemia & hyperphosphataemia w/ interval resolution at present. Interval improvement in renal function. CT brain demonstrated decrease in size of bilateral subdural haematomas. EEG consistent w/severe encephalopathy. KWAME #1 was removed . KWAME #2 removed . POD #28 () s/p: Left frontoparietal craniotomy for evacuation of subacute on chronic subdural hematoma Postoperative Diagnosis: (1) Subdural hematoma, chronic (2) Acute subdural hematoma 1. Left hemisphere subacute on chronic subdural hematoma 2. Acute right frontal subdural hematoma POD #25 () s/p: Revision left frontoparietal craniotomy evacuation of recurrent left hemisphere subdural hematoma Postoperative Diagnosis: (1) Acute subdural hematoma Recurrent left hemisphere subdural hematoma Plan: Primary management per [facility]. Neuro checks. Repeat CT brain for any decline in neuro status. Mechanical DVT prophylaxis. Hold pharmacologic DVT prophylaxis. Stress ulcer prophylaxis. (Lacho Lacey) Attending Statement The exam, history, and the medical decision-making described in the above note were completed with the assistance of the mid-level provider. I reviewed and agree with the findings presented. I attest that I had a [id number] encounter with the patient on the same day, and personally performed and documented my assessment and findings in the medical record. (Sylvester Odom MD) Lacho Lacey May 12, 2017 10:53 Sylvester Odom MD May 14, 2017 17:49
--- NOTE | 2017-05-12 11:19 | HHI.CCPN ---
Subjective Remarks/Hospital Course 04/12: 71-year-old male presents for evaluation after he fell hitting his head. Per family report they were in the bathroom trying to change his undergarments when he slipped and fell hitting his head. He is not on anticoagulant. The patient is pleasantly confused and patient's daughter states this is his baseline. He has had no altered mental status since the fall. No vomiting. The patient reports a mild headache without radiation. No neck pain or back pain. He has been ambulatory without difficulty since the fall. The CT head performed in the emergency department shows bilateral subdural hematomas in addition to parafalcine subdural hematoma, left frontal and temporal lobe intraparenchymal hemorrhages and subfalcine herniation from [id number]. 04/13: Resting in bed comfortably at the time of my evaluation this morning. Confused, does not know the year. Knows he is in the hospital. Moves all 4 extremity's. Does not appear to be in any acute distress. 04/14: Afebrile. The patient continues to be confused but easily following commands notable systolic ejection murmur, echo pending. Patient scheduled for neurosurgical intervention this afternoon. 04/15: Tmax 99.3. The patient status post craniotomy with evacuation of subdural hematoma last evening, remained intubated, only on sedation with propofol infusion and requiring low-dose phenylephrine to maintain map greater than 65. Sedation was briefly lightened last evening postoperatively, and the patient was extremely agitated. IV fluids changed from D5W to normal saline with [address] brain performed. INR pending. 04/16: Tmax 99.8 Patient agitated during the night , swinging his legs out of the bed while on maximum doses of propofol infusion, fentanyl infusion low-dose added this a.m. Patient's diet advance will begin tube feeds this a.m. The patient was noted to have multifocal PVCs intermittent during the night potassium level 3.2 currently being repleted with K-Phos. 04/17: Tmax 101.6. The patient underwent emergent craniotomy for evacuation of acute recurrent left subdural hematoma last evening. The patient continues on 3 % normal saline, with serial sodium and osmole is being followed. Currently weaning slowly sedation for neuro assessment. Patient noted to have a significant elevation in WBC count of 22, blood cultures urine cultures and sputum cultures obtained. Chest x-ray now showing bilateral lung opacities edema versus possible infectious process being ruled out. Echo revealed patient has severe aortic stenosis with a roommate mean gradient of 44. The patient continues on phenylephrine for vasopressors support at this time. 04/18: Last evening, the patient went into A. fib RVR, heart rate low 100s, with self resolution. This a.m. the patient continues to have sinus rhythm/sinus tachycardia 90-105 with frequent multifocal PVCs. Electrolytes within normal limits. Given the significant medical history for severe aortic stenosis metoprolol 2.5 mg IV for rapid heart rate instituted. The patient continues on phenylephrine infusion for maintenance of a map greater than 65. Propofol is currently being weaned off. EEG revealed last night severe encephalopathy. No change in neurological status but patient still is under sedation patient withdraws to pain bilateral lower extremities and now has spontaneous eye opening intermittently. Leukocytosis notably is resolving. 04/19: Afebrile. Today afternoon the patient was noted to have a seizure, Ativan 1 mg IV push with resolution EEG ordered. Post seizure the patient was noted to have gross hematuria. Coag studies performed within normal limits, fibrinogen level slightly elevated . Creatinine kinase noted to be within normal limits. Hematuria thought to possibly be secondary to acquired von Willebrand's factor secondary to the shear stress from his severe aortic stenosis. DDAVP 2 mcgs IV 1 dose ordered this a.m.. Patient continues on 3% sodium chloride, phenylephrine has been discontinued. 04/20: Remains sedated, orally intubated on mechanical ventilation. Remains on 3 % saline. Off phenylephrine currently. Blood pressure labile. Tolerating tube feeds. 04/21: Remains sedated, orally intubated on mechanical ventilation. Stopping 3% saline. Tolerating tube feeds 04/22: Remains sedated, orally intubated on mechanical ventilation. On Levophed for pressor support. Spiking temperatures. Started on Zosyn yesterday. Continues to have hematuria. One unit PRBCs and fluid bolus ordered. 04/23: Appears to have developed ADRIANNE from osmotic diuresis associated with poorly controlled diabetes. Hyperglycemia exacerbated by dextrose containing solution. Will start constant carb feedings with glucerna, reduce levemir, add SSI coverage, and hydrate to correct fluid depletion. 04/24: Continued serum concentration associated with free water loss. No improvement in neurological function. Suspect osmotic diuresis from elevated glucose but will check urine specific gravity to rule out DI. 04/25: Osmolality improving. Continue DDAVP prn. 04/26: Alertness much improved after Na corrected. Required DDAVP X 2. Gas exchange acceptable and he is strong on CPAP trial. Right arm edematous, ultrasound with no thrombus. 04/27: Extubated > 24 hours ago and breathing comfortably. Protects airway. Electrolytes normalized. Transfer. 04/28: Tolerating extubation but respiratory rate increased, not labored. Osmolality normalized off of DDAVP. 04/29: more somnolent today, but still awake and following commands. sodium mp from 143 to 147 off DDAVP. will restart free water. ROS unobtainable due to patient's baseline mental status. 3-way contreras persists, less hematuria noted. Cr continues to improve. remains stable for transfer to floor. SUBJECTIVE: 04/30: Currently in room 1319 . Resting in sitting position bed. Currently resting in bed in no acute distress. Contreras catheter remains. 05/01: > 5 liters urine with rising BUN/Creatinine - appears to have slipped back into DI. 05/02: Daughter request Palliative Care consult to assist with decision making re continued aggressive care, trach. 05/03: Intermittent diabetes insipidus causing big problems for kidneys. Episodic diuresis unpredictable and between bouts he develops pulmonary edema. Remains very weak and unable to tolerate vent weaning trials. 05/04: Patient continues to deteriorate. He will not survive this hospitalization. 05/05: No improvement. Renal function deteriorating. 05/06: Kidneys continue to deteriorate. Family has decided to continue with aggressive care. They want us to proceed with trach, PEG, and dialysis. Terminal disease process. 05/07: Family has elected to continue with aggressive care. Need and risks of tracheostomy insertion have been discussed with the daughter. She accepts risks , including bleeding and . 05/08: Trach, PEG in place. Will work toward LTAC placement. 05/09: Continuing dialysis with no renal recovery. Ventilator dependent. 05/10: Largely unresponsive. Weak on SBTs. Family recognizes that patient appears to be in pain and they have requested continuous iv analgesia. 05/11: Unresponsive., weak, unable to wean ventilator. : Remains on the vent. Opens eyes to stimulation. Do not follow commands Objective Vital Signs Date Time Temp Pulse Resp B/P (MAP) Pulse Ox O2 Delivery O2 Flow Rate FiO2 05/12/17 08:12 99 30 05/12/17 08:05 Ventilator 05/12/17 06:00 86 05/12/17 04:00 98.3 16 98/51 (67) Intake and Output 05/12/17 05/12/17 05/13/17 08:00 16:00 00:00 Intake Total 1450 ml Output Total 1000 ml Balance 450 ml Result Diagram: 05/12/17 0338 Imaging Last Impressions Head CT 04/27/17 0000 Signed Impressions: Service Date/Time: Thursday, April 27, 2017 11:04 - CONCLUSION: 1. Interval removal of the patient's subdural drain. There is still a small amount of subdural hemorrhage remaining along the left frontal cortex. The remainder of the hemorrhage along the parietal is no longer identified. Findings were discussed in detail above. Luis Moreno MD Chest X-Ray 04/26/17 0400 Signed Impressions: Service Date/Time: Wednesday, April 26, 2017 04:12 - CONCLUSION: No significant interval change. Zeferino Hewitt MD Upper Extremity Ultrasound 04/25/17 0000 Signed Impressions: Service Date/Time: Tuesday, April 25, 2017 11:44 - CONCLUSION: No evidence of right upper extremity DVT. David Meade MD Cervical Spine CT 04/12/17 0000 Signed Impressions: Service Date/Time: Wednesday, April 12, 2017 17:36 - CONCLUSION: Degenerative spondylosis without any significant compromise to the thecal sac or the exiting nerve roots. Wm. Lukasz Alvarado MD Objective Remarks GENERAL: 71-year-old Elderly gentleman. SKIN: Warm and dry. No rash HEAD: Atraumatic. Normocephalic. EYES: Pupils equal and round 2 mm bilaterally and reactive. No scleral icterus. No injection or drainage. ENT: No nasal bleeding or discharge. NECK: Trachea midline. Trach site clean, dry. CARDIOVASCULAR: Regular rate and rhythm. NL S1, S2. 2/6 systolic murmur right upper sternal border RESPIRATORY: No wheezing rales or rhonchi, good terese air movement. GASTROINTESTINAL: Abdomen soft, non-tender, nondistended, no guarding. BS active. PEG site clean, minimal serous drainage. : Contreras catheter in place MUSCULOSKELETAL: Extremities without clubbing, cyanosis. Right arm with resolving gross edema. NEUROLOGICAL: Moves 4 limbs weakly. Withdraws to pain in all 4 extremities. Opens eyes to stimulation. No tracking Procedures /-left frontoparietal craniotomy with evacuation of subacute on chronic SDH 04/17-@ 0000 emergent craniotomy with evacuation of acute recurrent left subdural hematoma A/P Assessment and Plan NEURO/PSYCH TBI -Subdural hematoma S/P Left frontoparietal craniotomy with evacuation of subacute on chronic SDH S/P Emergency revision/evacuation of acute recurrent left subdural hematoma Acute encephalopathy- resolving slowly Dementia disorder NOS Depression -Neurosurgery following. Dr. Odom - Neuro checks per protocol - Repeat CT head per neurosurgery-stable acute subdural hematoma within frontal regions, bilateral 5 mm subfalcine herniation to the right - Seizure prophylaxis with levetiracetam has been discontinued GBG discontinued 04/26 - 04/18 EEG-severe encephalopathy avoid long-acting sedating meds continue home gabapentin. 400 mg 3 times a day Holding Trazodone 100 mg at night, sertraline 150 mg daily and donepezil 10 mg Acetaminophen 650 mg by NG every 6 hours when necessary fever Continuing episodic DI RESP: COPD Acute hypoxic and hypercarbic respiratory failure - resolving. Albuterol/ipratropium aerosols every 6 hours with albuterol aerosols 2 hours. Dyspnea - s/p trach 05/07/17 - Aggressive pulmonary toilet - PRVC vent mode 04/30. SBT as tolerated CV: Severe Hypotension- -resolved. Sinus tachycardia- resolved. Essential hypertension -04/14 EKG prolonged QT 475, continue close monitoring - 04/16 Echo-s Normal left ventricular size. Severe concentric left ventricular hypertrophy. EF 50- 55%. Trace aortic valve regurgitation. Severe aortic valve stenosis. Moderate thickening of the aorticv alve leaflets. Aortic valve mean gradient is 44 mmHg. - Repeat air sampling and monitoring QTc-holding benazepril and sertraline and donepezil Continue valsartan 80 mg by mouth daily for hypertension/home medication Started on metoprolol tartrate twice a day for hypertension GI: Acute protein calorie Malnutrition - severe - Continue tube feeds Glucerna 1.5 with goal 60cc/hr Famotidine 20 mg by 2 twice a day for bowel regimen Docusate sodium/senna 1 tablet twice a day for bowel regimen : Hematuria Maintain Contreras. Dr. Woods has followed Urology recommends replace Contreras catheter with a 18 [place] coud and irrigate when necessary clots (previously with a 14 [place] catheter) Continue tolterodine 4 mg by mouth daily for management of bladder spasms Holding trospium 20 mg twice a day ENDO: Diabetes mellitus - improved control. Central Diabetes Insipidus - Hold metformin 500 mg daily/home medication - Insulin sliding scale NovoLog -high dose dose regimen, 25 units sliding scale past 24 hours Currently on insulin detemir 20 units twice a day - Unable to get clear urine due to bladder bleed. - Responding well to DDAVP, now stopped 04/28. Currently on free water 300mL po q4h - daily bmp to check sodium ID: Septic shock- resolved. Pneumonia - resolved. Bacteremia- resolved. 04/19-blood cultures-staph intermedius 04/14 sets - contaminant 04/20 - Sputum cultures with e. coli, klebsiella. s/p full course of Augie/ tazobactam 04/21 - 04/27. monitor off abx for fever, signs of infection. HEME: Last CBC 04/25. Leukocytosis. Recheck in a.m. 05/01 FEN: Hypernatremia See above treatment plan Continue free water 300 cc every 4 hours. Recheck BMP in a.m. Replace electrolytes as clinically indicated HD started 05/06 [facility] PT evaluate and treat DVT GI prophylaxis - Teds SCDs - No pharmacological DVT prophylaxis due to subdural hematoma - Pepcid BID Overall impression: Family continues to want aggressive care. They understand his chances of survival and return to a meaningful existence are very small. LTAC placement pending. Prema Rangel MD May 12, 2017 11:19
[2017-05-12] MEDS: cefTRIAXone INJ 1,000 MG in SODIUM CHLORIDE 0.9% INJ 100 ML IV SCH ×2 (18:00→19:28)
[2017-05-12] MEDS: fentaNYL DRIP 250 ML IV PRN (18:00)
[2017-05-13] VITALS (16 sets, daily range): BP systolic 115–162; BP diastolic 58–81; PULSE 68–116; RESP 16–21; TEMP 98.7–101.6; O2SAT 93–100
[2017-05-13] MEDS: INSULIN ASPART SUPPLEMENTAL SCALE SQ SCH ×4 (00:34→17:54)
[2017-05-13] MEDS: FREE WATER G-TUBE SCH ×6 (04:00→20:00)
[2017-05-13] MEDS: CHLORHEXIDINE GLUCONATE 2 % 1 PACK (2 CLOTHS) TOP SCH (04:00)
[2017-05-13] MEDS: cefTRIAXone INJ 1,000 MG in SODIUM CHLORIDE 0.9% INJ 100 ML IV SCH ×2 (05:33→17:54)
[2017-05-13 06:14] LABS: ALBUMIN 1.6 GM/DL (3.4-5.0); BICARBONATE 31.2 MEQ/L (21.0-32.0); CALCIUM 8.1 MG/DL (8.5-10.1); CREATININE 4.96 MG/DL (0.60-1.30); PHOSPHORUS 4.4 MG/DL (2.5-4.9)
[2017-05-13] MEDS: GABAPENTIN 300 MG CAP PO SCH (08:17)
[2017-05-13] MEDS: DOCUSATE SODIUM 50 MG/SENNA 8.6 MG TAB PO SCH ×2 (08:17→20:28)
[2017-05-13] MEDS: METOPROLOL TARTRATE 25 MG TAB PO SCH ×2 (08:18→20:28)
[2017-05-13] MEDS: TOLTERODINE TARTRATE 2 MG TAB PO SCH ×2 (08:18→20:29)
[2017-05-13] MEDS: PRAVASTATIN SOD 40 MG TAB PO SCH (08:18)
[2017-05-13] MEDS: SODIUM CHLORIDE 0.9% FLUSH 10 ML FLUSH IV FLUSH SCH ×2 (08:18→20:29)
[2017-05-13] MEDS: ARTIFICIAL TEARS OPTH OINT 3.5 APPLIC/3.5 GM TUBO EACH EYE SCH ×2 (08:18→20:29)
[2017-05-13] MEDS: FAMOTIDINE 20 MG TAB NG SCH ×2 (08:18→20:29)
--- NOTE | 2017-05-13 10:54 | HHI.CCPN ---
Subjective Remarks/Hospital Course 04/12: 71-year-old male presents for evaluation after he fell hitting his head. Per family report they were in the bathroom trying to change his undergarments when he slipped and fell hitting his head. He is not on anticoagulant. The patient is pleasantly confused and patient's daughter states this is his baseline. He has had no altered mental status since the fall. No vomiting. The patient reports a mild headache without radiation. No neck pain or back pain. He has been ambulatory without difficulty since the fall. The CT head performed in the emergency department shows bilateral subdural hematomas in addition to parafalcine subdural hematoma, left frontal and temporal lobe intraparenchymal hemorrhages and subfalcine herniation from [id number]. 04/13: Resting in bed comfortably at the time of my evaluation this morning. Confused, does not know the year. Knows he is in the hospital. Moves all 4 extremity's. Does not appear to be in any acute distress. 04/14: Afebrile. The patient continues to be confused but easily following commands notable systolic ejection murmur, echo pending. Patient scheduled for neurosurgical intervention this afternoon. 04/15: Tmax 99.3. The patient status post craniotomy with evacuation of subdural hematoma last evening, remained intubated, only on sedation with propofol infusion and requiring low-dose phenylephrine to maintain map greater than 65. Sedation was briefly lightened last evening postoperatively, and the patient was extremely agitated. IV fluids changed from D5W to normal saline with [address] brain performed. INR pending. 04/16: Tmax 99.8 Patient agitated during the night , swinging his legs out of the bed while on maximum doses of propofol infusion, fentanyl infusion low-dose added this a.m. Patient's diet advance will begin tube feeds this a.m. The patient was noted to have multifocal PVCs intermittent during the night potassium level 3.2 currently being repleted with K-Phos. 04/17: Tmax 101.6. The patient underwent emergent craniotomy for evacuation of acute recurrent left subdural hematoma last evening. The patient continues on 3 % normal saline, with serial sodium and osmole is being followed. Currently weaning slowly sedation for neuro assessment. Patient noted to have a significant elevation in WBC count of 22, blood cultures urine cultures and sputum cultures obtained. Chest x-ray now showing bilateral lung opacities edema versus possible infectious process being ruled out. Echo revealed patient has severe aortic stenosis with a roommate mean gradient of 44. The patient continues on phenylephrine for vasopressors support at this time. 04/18: Last evening, the patient went into A. fib RVR, heart rate low 100s, with self resolution. This a.m. the patient continues to have sinus rhythm/sinus tachycardia 90-105 with frequent multifocal PVCs. Electrolytes within normal limits. Given the significant medical history for severe aortic stenosis metoprolol 2.5 mg IV for rapid heart rate instituted. The patient continues on phenylephrine infusion for maintenance of a map greater than 65. Propofol is currently being weaned off. EEG revealed last night severe encephalopathy. No change in neurological status but patient still is under sedation patient withdraws to pain bilateral lower extremities and now has spontaneous eye opening intermittently. Leukocytosis notably is resolving. 04/19: Afebrile. Today afternoon the patient was noted to have a seizure, Ativan 1 mg IV push with resolution EEG ordered. Post seizure the patient was noted to have gross hematuria. Coag studies performed within normal limits, fibrinogen level slightly elevated . Creatinine kinase noted to be within normal limits. Hematuria thought to possibly be secondary to acquired von Willebrand's factor secondary to the shear stress from his severe aortic stenosis. DDAVP 2 mcgs IV 1 dose ordered this a.m.. Patient continues on 3% sodium chloride, phenylephrine has been discontinued. 04/20: Remains sedated, orally intubated on mechanical ventilation. Remains on 3 % saline. Off phenylephrine currently. Blood pressure labile. Tolerating tube feeds. 04/21: Remains sedated, orally intubated on mechanical ventilation. Stopping 3% saline. Tolerating tube feeds 04/22: Remains sedated, orally intubated on mechanical ventilation. On Levophed for pressor support. Spiking temperatures. Started on Zosyn yesterday. Continues to have hematuria. One unit PRBCs and fluid bolus ordered. 04/23: Appears to have developed ADRIANNE from osmotic diuresis associated with poorly controlled diabetes. Hyperglycemia exacerbated by dextrose containing solution. Will start constant carb feedings with glucerna, reduce levemir, add SSI coverage, and hydrate to correct fluid depletion. 04/24: Continued serum concentration associated with free water loss. No improvement in neurological function. Suspect osmotic diuresis from elevated glucose but will check urine specific gravity to rule out DI. 04/25: Osmolality improving. Continue DDAVP prn. 04/26: Alertness much improved after Na corrected. Required DDAVP X 2. Gas exchange acceptable and he is strong on CPAP trial. Right arm edematous, ultrasound with no thrombus. 04/27: Extubated > 24 hours ago and breathing comfortably. Protects airway. Electrolytes normalized. Transfer. 04/28: Tolerating extubation but respiratory rate increased, not labored. Osmolality normalized off of DDAVP. 04/29: more somnolent today, but still awake and following commands. sodium mp from 143 to 147 off DDAVP. will restart free water. ROS unobtainable due to patient's baseline mental status. 3-way contreras persists, less hematuria noted. Cr continues to improve. remains stable for transfer to floor. SUBJECTIVE: 04/30: Currently in room 1319 . Resting in sitting position bed. Currently resting in bed in no acute distress. Contreras catheter remains. 05/01: > 5 liters urine with rising BUN/Creatinine - appears to have slipped back into DI. 05/02: Daughter request Palliative Care consult to assist with decision making re continued aggressive care, trach. 05/03: Intermittent diabetes insipidus causing big problems for kidneys. Episodic diuresis unpredictable and between bouts he develops pulmonary edema. Remains very weak and unable to tolerate vent weaning trials. 05/04: Patient continues to deteriorate. He will not survive this hospitalization. 05/05: No improvement. Renal function deteriorating. 05/06: Kidneys continue to deteriorate. Family has decided to continue with aggressive care. They want us to proceed with trach, PEG, and dialysis. Terminal disease process. 05/07: Family has elected to continue with aggressive care. Need and risks of tracheostomy insertion have been discussed with the daughter. She accepts risks , including bleeding and . 05/08: Trach, PEG in place. Will work toward LTAC placement. 05/09: Continuing dialysis with no renal recovery. Ventilator dependent. 05/10: Largely unresponsive. Weak on SBTs. Family recognizes that patient appears to be in pain and they have requested continuous iv analgesia. 05/11: Unresponsive., weak, unable to wean ventilator. 05/12: Remains on the vent. Opens eyes to stimulation. Do not follow commands 05/13: Unchanged neuro exam. Moves all extremities spontaneously. Creatinine increased to 5, hemodialysis today. Urine output 2 L Objective Vital Signs Date Time Temp Pulse Resp B/P (MAP) Pulse Ox O2 Delivery O2 Flow Rate FiO2 05/13/17 08:56 100 30 05/13/17 08:00 99.1 74 16 116/59 (78) 05/12/17 08:05 Ventilator Intake and Output 05/13/17 05/13/17 2 08:00 16:00 00:00 Intake Total 1592 ml Output Total 1100 ml Balance 492 ml Result Diagram: 05/13/17 0529 Imaging Last Impressions Head CT 04/27/17 0000 Signed Impressions: Service Date/Time: Thursday, April 27, 2017 11:04 - CONCLUSION: 1. Interval removal of the patient's subdural drain. There is still a small amount of subdural hemorrhage remaining along the left frontal cortex. The remainder of the hemorrhage along the parietal is no longer identified. Findings were discussed in detail above. Luis Moreno MD Chest X-Ray 04/26/17 0400 Signed Impressions: Service Date/Time: Wednesday, April 26, 2017 04:12 - CONCLUSION: No significant interval change. Zeferino Hewitt MD Upper Extremity Ultrasound 04/25/17 0000 Signed Impressions: Service Date/Time: Tuesday, April 25, 2017 11:44 - CONCLUSION: No evidence of right upper extremity DVT. David Meade MD Cervical Spine CT 04/12/17 0000 Signed Impressions: Service Date/Time: Wednesday, April 12, 2017 17:36 - CONCLUSION: Degenerative spondylosis without any significant compromise to the thecal sac or the exiting nerve roots. Maria Guadalupe Alvarado MD Objective Remarks GENERAL: 71-year-old Elderly gentleman. SKIN: Warm and dry. No rash HEAD: Atraumatic. Normocephalic. EYES: Pupils equal and round 2 mm bilaterally and reactive. No scleral icterus. No injection or drainage. ENT: No nasal bleeding or discharge. NECK: Trachea midline. Trach site clean, dry. CARDIOVASCULAR: Regular rate and rhythm. Nl S1, S2. 2/6 systolic murmur right upper sternal border RESPIRATORY: No wheezing rales or rhonchi, good terese air movement. GASTROINTESTINAL: Abdomen soft, non-tender, nondistended, no guarding. BS active. PEG site clean, minimal serous drainage. : Contreras catheter in place MUSCULOSKELETAL: Extremities without clubbing, cyanosis. Right arm with resolving gross edema. NEUROLOGICAL: Moves 4 limbs weakly. Withdraws to pain in all 4 extremities. Opens eyes to stimulation. No tracking Procedures /2-left frontoparietal craniotomy with evacuation of subacute on chronic SDH 04/17-@ 0000 emergent craniotomy with evacuation of acute recurrent left subdural hematoma A/P Assessment and Plan NEURO/PSYCH TBI -Subdural hematoma S/P Left frontoparietal craniotomy with evacuation of subacute on chronic SDH S/P Emergency revision/evacuation of acute recurrent left subdural hematoma Acute encephalopathy- resolving slowly Dementia disorder NOS Depression - Neurosurgery following Dr. Odom - Neuro checks per protocol - Repeat CT head per neurosurgery-stable acute subdural hematoma within frontal regions, bilateral 5 mm subfalcine herniation to the right - Seizure prophylaxis with levetiracetam has been discontinued GBG discontinued 04/26 - 04/18 EEG-severe encephalopathy Avoid long-acting sedating meds continue home gabapentin. 400 mg 3 times a day Holding Trazodone 100 mg at night, sertraline 150 mg daily and donepezil 10 mg Acetaminophen 650 mg by NG every 6 hours when necessary fever Continuing episodic DI RESP: COPD Acute hypoxic and hypercarbic respiratory failure - resolving. Albuterol/ipratropium aerosols every 6 hours with albuterol aerosols 2 hours. Dyspnea - s/p trach 05/07/17 - Aggressive pulmonary toilet - PRVC vent mode 04/30. SBT as tolerated CV: Severe Hypotension- -resolved. Sinus tachycardia- resolved. Essential hypertension -1/2 EKG prolonged QT 475, continue close monitoring - 04/16 Echo- Normal left ventricular size. Severe concentric left ventricular hypertrophy. EF 50- 55%. Trace aortic valve regurgitation. Severe aortic valve stenosis. Moderate thickening of the aortic valve leaflets. Aortic valve mean gradient is 44 mmHg. - Repeat shelter monitor QTc-holding benazepril and sertraline and donepezil Continue valsartan 80 mg by mouth daily for hypertension/home medication Metoprolol tartrate twice a day for hypertension GI: Acute protein calorie Malnutrition - severe - Continue tube feeds Glucerna 1.5 with goal 60cc/hr Famotidine 20 mg by 2 twice a day for bowel regimen Docusate sodium/senna 1 tablet twice a day for bowel regimen : Hematuria Maintain Contreras. Dr. Woods has followed Urology recommends replace Contreras catheter with a 18 [place] coud and irrigate when necessary clots (previously with a 14 [place]ian catheter) Continue tolterodine 4 mg by mouth daily for management of bladder spasms Holding trospium 20 mg twice a day ENDO: Diabetes mellitus - improved control. Central Diabetes Insipidus - Hold metformin 500 mg daily/home medication - Insulin sliding scale NovoLog -high dose dose regimen, 25 units sliding scale past 24 hours Currently on insulin detemir 20 units twice a day - Unable to get clear urine due to bladder bleed. - Responding well to DDAVP, now stopped 04/28. Currently on free water 300mL po q4h - daily bmp to check sodium ID: Septic shock- resolved. Pneumonia - resolved. Bacteremia- resolved. 04/19-blood cultures-staph intermedius 04/14 sets - contaminant 04/20 - Sputum cultures with e. coli, klebsiella. s/p full course of Augie/ tazobactam 04/21 - 04/27. monitor off ABX for fever, signs of infection. HEME: Last CBC 04/25. Leukocytosis. Recheck in a.m. 05/01 FEN: Hypernatremia See above treatment plan Continue free water 300 cc every 4 hours. Replace electrolytes as clinically indicated HD started 05/06, now alternate day HD MSK PT evaluate and treat DVT GI prophylaxis - Teds SCDs - No pharmacological DVT prophylaxis due to subdural hematoma - Pepcid BID Overall impression: Family continues to want aggressive care. They understand his chances of survival and return to a meaningful existence are very small. Transfer to LTAC today if bed available Prema Rangel MD May 13, 2017 10:54
[2017-05-13] MEDS: GENTAMICIN SULFATE 20 MG/2 ML VIAL OTHER PRN (12:51)
[2017-05-13] MEDS: HEPARIN SODIUM - IV 10,000 UNITS/10 ML VIAL PRN (12:51)
[2017-05-13] MEDS: fentaNYL DRIP 250 ML IV PRN (12:54)
--- NOTE | 2017-05-13 16:48 | HHI.NSPN ---
(Mario Laceyelida JOSEPH) History Chief Complaint: Unable to obtain due to patient's clinical condition. (DeepthiLacho JOSEPH) Interval History 04/28: When seen this morning the patient is lethargic. He did not open his eyes to voice or follow any commands. He did have slight withdrawal of the left upper and both lower extremities to noxious stimulation. He did have facial grimacing to noxious stimulation as well. 04/29: The patient is awake this morning. He is on a nasal cannula. He squeezes with the left hand when a hand is placed in it. He moves both feet to noxious stimulation. He had no movement of the right upper extremity. 04/30: This morning the patient is sitting up in the cardiac chair with his eyes closed. There was no evident eye opening to voice. He was noted to move the left lower extremity spontaneously. He did give a slight squeeze with the left hand to command and appears to have tried to give a thumbs up when asked to. He did move the right lower extremity to noxious stimulation and there was muscle contraction noted to the right forearm to noxious stimulation. 05/01: When seen this morning the patient is intubated and on CPAP. He does not respond to any commands or open his eyes. He does spontaneously move the left upper extremity and both lower to noxious stimulation. There was no response with the right upper. Nursing reports that during the night his systolic blood pressure dropped into the 70s, his respirations were in the 30s and he was tachycardiac in the 130s. He was therefore emergently intubated. He was given three litres of intravenous fluids and his systolic blood pressure improved. 05/02: The patient is seen moving both lower extremities spontaneously. He remains intubated and mechanically ventilated. He is not on any sedation. His daughter is present and states that he did open his eyes briefly to her voice and that he was squeezing her hand. He did squeeze this practitioner's hand to command and moved both lower extremities to noxious stimulation. There was no movement of the right upper. 05/03: The patient is lethargic when seen. He does not have any sedation infusing. He remains intubated but is on CPAP. He does spontaneously move the lower extremities but is not following any commands. He did move his extremities to noxious stimulation as well as have facial grimacing. 05/04: This morning the patient is lethargic when seen. He continues to be intubated and is now mechanically ventilated. He does squeeze twice with the left hand and moves all extremities to noxious stimulation. He is not on any sedation. 05/05: When seen the patient is lethargic. He remains intubated and on PCV settings. He opened his eyes to voice. There was some questionable movement of the feet to command but he did withdraw the lower extremities to noxious stimulation. He didn't follow commands with the left upper but did have some movement with noxious stimulation. 05/06: The patient is seen moving both lower extremities spontaneously this morning. He does not appear to follow commands but has a strong withdrawal response with the lower extremities to noxious stimulation. The left upper response is weak. No response with the right upper. Nursing reports that Palliative Care spoke with the family and they want to continue aggressive care measures at present to include dialysis. 05/07: Dialysis is at the bedside when the patient was seen this morning. The [facility] placed a temporary haemodialysis catheter late yesterday afternoon. The patient still remains lethargic. He is spontaneously moving the lower extremities as well as to noxious stimulation. He does move the left upper to noxious stimulation. With noxious stimulation to the right upper the patient pulls both knees up strongly. 05/08: The patient is lethargic when seen. He does not have any sedation infusing. He was trached yesterday and remains mechanically ventilated. He had a PEG tube placed this morning prior to being seen. He was seen spontaneously moving both feet. He did have withdrawal of the lower extremities to local noxious stimulation but extension with central. There was no response to any stimulation with the upper extremities. 05/09: Patient opens eyes to stimulation. Pupils 3 mm bilaterally reactive bilaterally. Patient is intubated. 05/10: Patient opens eyes briefly to voice. Pupils 3 mm bilaterally reactive bilaterally. He spontaneously moves his left side more than the right side. Trach in place on vent. 05/11: When seen this morning the patient is lethargic, sitting up with the bed in chair mode. He does move the left upper spontaneously. There is partial eye opening to voice. He remains trached and on the vent. Nursing states that the patient withdraws for him on the left side and right lower. He did say that the patient is only able to last a very short time on CPAP. 05/12: This morning the patient is asleep with the bed in the chair position. He opened his eyes to voice. It appears he did move the right foot twice to command. There was questionable trace movement to the left hand to squeeze to command. He did withdraw both upper and left lower to noxious stimulation. He was noted to have spontaneous eye opening after being seen. 05/13: The patient is asleep when seen. He opened his eyes and grimaced to noxious stimulation to the sternum. The patient was noted to move both lower extremities and the left upper spontaneously prior to waking up. He did not follow any commands. He did move the extremities to local noxious stimulation but there was no movement of the right upper. (Lacho Lacey) System Review Comments Unable to obtain due to patient's clinical condition. (Lacho Lacey) Exam Results 05/11/17 05/11/17 05/12/17 05/12/17 05/13/17 05/13/17 06:00 18:00 06:00 18:00 06:00 18:00 Intake Total 2332 ml 1975 ml 1450 ml 1917 ml 1592 ml Output Total 400 ml 1200 ml 4500 ml 900 ml 1100 ml 3000 ml Balance 1932 ml 775 ml -3050 ml 1017 ml 492 ml -3000 ml IV Total 445 ml 100 ml Tube Feeding 687 ml 975 ml 650 ml 1017 ml 692 ml Tube Irrigant 1200 ml 900 ml 800 ml 900 ml 900 ml Output Urine Total 400 ml 1200 ml 1000 ml 900 ml 1100 ml Hemodialysis 3500 ml 3000 ml # Bowel Movements 0 0 1 0 Vital Signs Date Time Temp Pulse Resp B/P (MAP) Pulse Ox O2 Delivery O2 Flow Rate FiO2 05/13/17 16:35 93 30 05/13/17 12:35 99 30 05/13/17 08:56 100 30 05/13/17 08:53 30 05/13/17 08:00 99.1 74 16 116/59 (78) 100 05/13/17 08:00 40 05/13/17 08:00 74 05/13/17 06:00 76 05/13/17 04:03 99 30 05/13/17 04:00 98.7 71 16 118/67 (84) 100 05/13/17 04:00 81 05/13/17 04:00 40 05/13/17 02:00 79 05/13/17 00:00 40 05/13/17 00:00 85 05/13/17 00:00 99.0 81 16 124/58 (80) 100 05/12/17 23:51 100 30 05/12/17 22:00 76 05/12/17 20:22 100 30 05/12/17 20:00 66 05/12/17 20:00 40 05/12/17 20:00 98.8 68 16 114/66 (82) 100 05/12/17 18:00 80 05/12/17 17:00 99 30 05/12/17 16:00 99.2 74 16 128/67 (87) 100 05/12/17 16:00 40 05/12/17 16:00 74 05/12/17 14:00 73 05/12/17 13:06 98 30 05/12/17 12:00 40 05/12/17 12:00 98.7 82 16 103/55 (71) 99 05/12/17 12:00 82 05/12/17 10:00 75 05/12/17 08:12 99 30 05/12/17 08:05 30 05/12/17 08:05 99 Ventilator 30 05/12/17 08:00 98.1 77 16 126/59 (81) 99 05/12/17 08:00 77 05/12/17 08:00 40 05/12/17 06:00 86 05/12/17 04:20 100 100 05/12/17 04:02 99 30 05/12/17 04:00 40 05/12/17 04:00 98.3 75 16 98/51 (67) 100 05/12/17 04:00 75 05/12/17 02:00 76 05/12/17 00:00 40 05/12/17 00:00 98.2 80 16 113/55 (74) 96 05/12/17 00:00 80 05/11/17 23:44 96 30 05/11/17 20:32 94 30 05/11/17 20:00 93 05/11/17 20:00 40 05/11/17 20:00 98.0 90 17 119/57 (77) 96 05/11/17 18:00 69 05/11/17 16:00 74 05/11/17 16:00 98.3 74 16 121/58 (79) 100 05/11/17 16:00 40 05/11/17 14:00 66 05/11/17 12:08 30 05/11/17 12:04 100 30 05/11/17 12:00 81 05/11/17 12:00 40 05/11/17 12:00 98.8 81 18 112/57 (75) 96 05/11/17 10:00 72 05/11/17 08:04 99 30 05/11/17 08:00 73 05/11/17 08:00 40 05/11/17 08:00 98.6 73 16 119/58 (78) 97 05/11/17 04:00 97.8 67 16 102/52 (69) 100 05/11/17 04:00 40 05/11/17 03:59 100 30 05/11/17 01:04 100 30 05/11/17 00:00 96.9 67 16 109/57 (74) 100 05/11/17 00:00 40 05/10/17 20:23 100 40 05/10/17 20:00 97.6 65 16 117/58 (77) 100 05/10/17 20:00 69 05/10/17 20:00 40 05/10/17 18:00 68 (Lacho Lacey) Physical Examination GENERAL: Asleep, eye opening to noxious stimulation to the sternum. No sedation infusing. Trached & on vent. No distress evident. HEENT: Left craniotomy surgical incision well approximated, no evident drainage , erythema or streaking. Pupils 2 mm sluggish bilaterally. MUSCULOSKELETAL: No clubbing or deformity evident. Spontaneous movement of LUE & BLE. NEUROLOGICAL: Asleep but opens eyes to noxious stimulation to the sternum, no sedation. Pupils 2 mm sluggish bilaterally. Nonverbal, trached. Facial grimacing to noxious stimulation. Did not follow commands. Moved LUE=LLE>RLE spontaneously. Also moved to local noxious stimulation. No response with RUE to local noxious stimulation. (Lacho Lacey) Lab, Micro, Other Results Recent Impressions Head CT 05/12/17 0600 Signed Impressions: Service Date/Time: Friday, May 12, 2017 04:33 - CONCLUSION: 1. Decrease in size of previous bilateral subdural hematomas to less than 1 cm in thickness on the current examination. Lalo Loo MD Laboratory Tests Test 05/11/17 05:09 05/12/17 03:38 05/13/17 05:29 Blood Urea Nitrogen 65 MG/DL 43 MG/DL 62 MG/DL Creatinine 5.69 MG/DL 3.92 MG/DL 4.96 MG/DL Random Glucose 183 MG/DL 204 MG/DL 203 MG/DL Albumin 1.7 GM/DL 1.6 GM/DL 1.6 GM/DL Calcium Level 8.2 MG/DL 7.8 MG/DL 8.1 MG/DL Phosphorus Level 5.2 MG/DL 4.2 MG/DL 4.4 MG/DL Sodium Level 138 MEQ/L 141 MEQ/L 138 MEQ/L Potassium Level 5.4 MEQ/L 4.9 MEQ/L 5.5 MEQ/L Chloride Level 101 MEQ/L 103 MEQ/L 102 MEQ/L Carbon Dioxide Level 28.5 MEQ/L 31.1 MEQ/L 31.2 MEQ/L Anion Gap 9 MEQ/L 7 MEQ/L 5 MEQ/L Estimat Glomerular Filtration Rate 10 ML/MIN 15 ML/MIN 12 ML/MIN (Lacho Lacey) Medical Decision Making Impression and Plan Impression: 1. 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 Dementia 4. Cardiac murmur Patient w/eye opening to noxious stimulation, moving BLE & LUE spontaneously & to local noxious stimulation, no response w/RUE. Reviewed labs for today. Sodium 138. Interval development of hyperkalemia. Interval worsening in renal function. CT brain demonstrated decrease in size of bilateral subdural haematomas. EEG consistent w/severe encephalopathy. KWAME #1 was removed . KWAME #2 removed . POD #29 () s/p: Left frontoparietal craniotomy for evacuation of subacute on chronic subdural hematoma Postoperative Diagnosis: (1) Subdural hematoma, chronic (2) Acute subdural hematoma 1. Left hemisphere subacute on chronic subdural hematoma 2. Acute right frontal subdural hematoma POD #26 () s/p: Revision left frontoparietal craniotomy evacuation of recurrent left hemisphere subdural hematoma Postoperative Diagnosis: (1) Acute subdural hematoma Recurrent left hemisphere subdural hematoma Plan: Primary management per [facility]. Neuro checks. Repeat CT brain for any decline in neuro status. Mechanical DVT prophylaxis. Hold pharmacologic DVT prophylaxis. Stress ulcer prophylaxis. From Neurosurgery's perspective the patient may be transferred to a LTAC. (Lacho Lacey) Attending Statement The exam, history, and the medical decision-making described in the above note were completed with the assistance of the mid-level provider. I reviewed and agree with the findings presented. I attest that I had a [id number] encounter with the patient on the same day, and personally performed and documented my assessment and findings in the medical record. (Sylvester Odom MD) Lacho Lacey May 13, 2017 16:48 Sylvester Odom MD May 14, 2017 17:50
--- NOTE | 2017-05-13 17:32 | HHI.NPPN ---
Subjective History of Present Illness This patient is a 71-year-old male who unfortunately cannot provide any history at this time secondary to change in mental status and he is intubated on ventilatory support currently. Apparently the patient sustained a head injury and was admitted to this institution on April 12, 2017. Imaging studies reveal bilateral subdural hematoma. Patient also said to have a history of dementia, diabetes mellitus as well as COPD. His creatinine level was noted to have been 1.08 on May 02, 2016 subsequently deteriorating progressively thereafter it will level of 6.37 today with a potassium of 5.7. Patient also felt to have diabetes insipidus and has been receiving DDAVP. More recently however the patient has become oliguric. Critical care believes that the patient has a poor prognosis and family has been communicating with palliative care with considerations for a DNR CODE STATUS and possible hospice. No decision has been made as yet regarding dialytic support. Interval History Awake but nonverbal. Remains ventilatory dependent. Review of Systems General General Remarks Unable to obtain Objective Data Data 05/13/17 05/14/17 19:00 07:00 Output Total 3000 ml Balance -3000 ml Hemodialysis 3000 ml Vital Signs Date Time Temp Pulse Resp B/P (MAP) Pulse Ox O2 Delivery O2 Flow Rate FiO2 05/13/17 16:35 93 30 05/13/17 16:00 40 05/13/17 16:00 100.0 116 21 162/81 (108) 96 05/13/17 16:00 116 05/13/17 14:00 104 05/13/17 12:35 99 30 05/13/17 12:00 68 16 115/58 (77) 100 05/13/17 12:00 40 05/13/17 12:00 68 05/13/17 08:56 100 30 05/13/17 08:53 30 05/13/17 08:00 99.1 74 16 116/59 (78) 100 05/13/17 08:00 40 05/13/17 08:00 74 05/13/17 06:00 76 05/13/17 04:03 99 30 05/13/17 04:00 98.7 71 16 118/67 (84) 100 05/13/17 04:00 81 05/13/17 04:00 40 05/13/17 02:00 79 05/13/17 00:00 40 05/13/17 00:00 85 05/13/17 00:00 99.0 81 16 124/58 (80) 100 05/12/17 23:51 100 30 05/12/17 22:00 76 05/12/17 20:22 100 30 05/12/17 20:00 66 05/12/17 20:00 40 05/12/17 20:00 98.8 68 16 114/66 (82) 100 05/12/17 18:00 80 -: 05/13/17 0529 Tubes & Lines: Vas-Cath, Munoz Physical Exam General Appearance: Comfortable Pulmonary Resp Exam: Diminished Breath Sounds Cardiology CV Exam: Regular, Murmur Gastrointestinal/Abdomen GI Exam: Soft, Non-Tender Extremeties Extremities Exam: Moderate Edema, Pitting Edema (significant in BUE) Neurologic Neuro Exam: Obtunded Assessment/Plan Problem List: (1) Acute kidney insufficiency ICD Codes: N28.9 - Disorder of kidney and ureter, unspecified Status: Acute Plan: Postdialysis today. Continue HD MWF I believe that this patient is a poor long-term dialysis candidate as discussed with the daughter but hopefully renal recovery will occur. If not I believe further discussion would be indicated regarding patient's quality of life and continuance of dialysis. Medications should be adjusted for the patient's estimated GFR if clinically indicated. Avoid agents with significant potential for nephrotoxicity possible including NSAIDs for analgesia, iodine contrast agents. Gadolinium is contraindicated if the GFR is below 30. 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 (5) Subdural hematoma ICD Codes: I62.00 - Nontraumatic subdural hemorrhage, unspecified Pedro Lala MD May 13, 2017 17:32
[2017-05-14] VITALS (15 sets, daily range): BP systolic 103–152; BP diastolic 53–63; PULSE 79–113; RESP 18–23; TEMP 98.4–100.8; O2SAT 95–100
[2017-05-14] MEDS: INSULIN ASPART SUPPLEMENTAL SCALE SQ SCH ×4 (01:42→17:34)
[2017-05-14] MEDS: FREE WATER G-TUBE SCH ×5 (04:00→15:48)
[2017-05-14] MEDS: CHLORHEXIDINE GLUCONATE 2 % 1 PACK (2 CLOTHS) TOP SCH (04:00)
[2017-05-14] MEDS: cefTRIAXone INJ 1,000 MG in SODIUM CHLORIDE 0.9% INJ 100 ML IV SCH ×2 (06:25→17:34)
[2017-05-14] MEDS: ARTIFICIAL TEARS OPTH OINT 3.5 APPLIC/3.5 GM TUBO EACH EYE SCH (09:00)
[2017-05-14] MEDS: DOCUSATE SODIUM 50 MG/SENNA 8.6 MG TAB PO SCH (09:00)
--- NOTE | 2017-05-14 09:26 | HHI.CCPN ---
Subjective Remarks/Hospital Course 04/12: 71-year-old male presents for evaluation after he fell hitting his head. Per family report they were in the bathroom trying to change his undergarments when he slipped and fell hitting his head. He is not on anticoagulant. The patient is pleasantly confused and patient's daughter states this is his baseline. He has had no altered mental status since the fall. No vomiting. The patient reports a mild headache without radiation. No neck pain or back pain. He has been ambulatory without difficulty since the fall. The CT head performed in the emergency department shows bilateral subdural hematomas in addition to parafalcine subdural hematoma, left frontal and temporal lobe intraparenchymal hemorrhages and subfalcine herniation from [id number]. 04/13: Resting in bed comfortably at the time of my evaluation this morning. Confused, does not know the year. Knows he is in the hospital. Moves all 4 extremity's. Does not appear to be in any acute distress. 04/14: Afebrile. The patient continues to be confused but easily following commands notable systolic ejection murmur, echo pending. Patient scheduled for neurosurgical intervention this afternoon. 04/15: Tmax 99.3. The patient status post craniotomy with evacuation of subdural hematoma last evening, remained intubated, only on sedation with propofol infusion and requiring low-dose phenylephrine to maintain map greater than 65. Sedation was briefly lightened last evening postoperatively, and the patient was extremely agitated. IV fluids changed from D5W to normal saline with [address] brain performed. INR pending. 04/16: Tmax 99.8 Patient agitated during the night , swinging his legs out of the bed while on maximum doses of propofol infusion, fentanyl infusion low-dose added this a.m. Patient's diet advance will begin tube feeds this a.m. The patient was noted to have multifocal PVCs intermittent during the night potassium level 3.2 currently being repleted with K-Phos. 04/17: Tmax 101.6. The patient underwent emergent craniotomy for evacuation of acute recurrent left subdural hematoma last evening. The patient continues on 3 % normal saline, with serial sodium and osmole is being followed. Currently weaning slowly sedation for neuro assessment. Patient noted to have a significant elevation in WBC count of 22, blood cultures urine cultures and sputum cultures obtained. Chest x-ray now showing bilateral lung opacities edema versus possible infectious process being ruled out. Echo revealed patient has severe aortic stenosis with a roommate mean gradient of 44. The patient continues on phenylephrine for vasopressors support at this time. 04/18: Last evening, the patient went into A. fib RVR, heart rate low 100s, with self resolution. This a.m. the patient continues to have sinus rhythm/sinus tachycardia 90-105 with frequent multifocal PVCs. Electrolytes within normal limits. Given the significant medical history for severe aortic stenosis metoprolol 2.5 mg IV for rapid heart rate instituted. The patient continues on phenylephrine infusion for maintenance of a map greater than 65. Propofol is currently being weaned off. EEG revealed last night severe encephalopathy. No change in neurological status but patient still is under sedation patient withdraws to pain bilateral lower extremities and now has spontaneous eye opening intermittently. Leukocytosis notably is resolving. 04/19: Afebrile. Today afternoon the patient was noted to have a seizure, Ativan 1 mg IV push with resolution EEG ordered. Post seizure the patient was noted to have gross hematuria. Coag studies performed within normal limits, fibrinogen level slightly elevated . Creatinine kinase noted to be within normal limits. Hematuria thought to possibly be secondary to acquired von Willebrand's factor secondary to the shear stress from his severe aortic stenosis. DDAVP 2 mcgs IV 1 dose ordered this a.m.. Patient continues on 3% sodium chloride, phenylephrine has been discontinued. 04/20: Remains sedated, orally intubated on mechanical ventilation. Remains on 3 % saline. Off phenylephrine currently. Blood pressure labile. Tolerating tube feeds. 04/21: Remains sedated, orally intubated on mechanical ventilation. Stopping 3% saline. Tolerating tube feeds 04/22: Remains sedated, orally intubated on mechanical ventilation. On Levophed for pressor support. Spiking temperatures. Started on Zosyn yesterday. Continues to have hematuria. One unit PRBCs and fluid bolus ordered. 04/23: Appears to have developed ADRIANNE from osmotic diuresis associated with poorly controlled diabetes. Hyperglycemia exacerbated by dextrose containing solution. Will start constant carb feedings with glucerna, reduce levemir, add SSI coverage, and hydrate to correct fluid depletion. 04/24: Continued serum concentration associated with free water loss. No improvement in neurological function. Suspect osmotic diuresis from elevated glucose but will check urine specific gravity to rule out DI. 04/25: Osmolality improving. Continue DDAVP prn. 04/26: Alertness much improved after Na corrected. Required DDAVP X 2. Gas exchange acceptable and he is strong on CPAP trial. Right arm edematous, ultrasound with no thrombus. 04/27: Extubated > 24 hours ago and breathing comfortably. Protects airway. Electrolytes normalized. Transfer. 04/28: Tolerating extubation but respiratory rate increased, not labored. Osmolality normalized off of DDAVP. 04/29: more somnolent today, but still awake and following commands. sodium mp from 143 to 147 off DDAVP. will restart free water. ROS unobtainable due to patient's baseline mental status. 3-way contreras persists, less hematuria noted. Cr continues to improve. remains stable for transfer to floor. SUBJECTIVE: 04/30: Currently in room 1319 . Resting in sitting position bed. Currently resting in bed in no acute distress. Contreras catheter remains. 05/01: > 5 liters urine with rising BUN/Creatinine - appears to have slipped back into DI. 05/02: Daughter request Palliative Care consult to assist with decision making re continued aggressive care, trach. 05/03: Intermittent diabetes insipidus causing big problems for kidneys. Episodic diuresis unpredictable and between bouts he develops pulmonary edema. Remains very weak and unable to tolerate vent weaning trials. 05/04: Patient continues to deteriorate. He will not survive this hospitalization. 05/05: No improvement. Renal function deteriorating. 05/06: Kidneys continue to deteriorate. Family has decided to continue with aggressive care. They want us to proceed with trach, PEG, and dialysis. Terminal disease process. 05/07: Family has elected to continue with aggressive care. Need and risks of tracheostomy insertion have been discussed with the daughter. She accepts risks , including bleeding and . 05/08: Trach, PEG in place. Will work toward LTAC placement. 05/09: Continuing dialysis with no renal recovery. Ventilator dependent. 05/10: Largely unresponsive. Weak on SBTs. Family recognizes that patient appears to be in pain and they have requested continuous iv analgesia. 05/11: Unresponsive., weak, unable to wean ventilator. 05/12: Remains on the vent. Opens eyes to stimulation. Do not follow commands 05/13: Unchanged neuro exam. Moves all extremities spontaneously. Creatinine increased to 5, hemodialysis today. Urine output 2 L 05/14: Spontaneous urine picking up. Gas exchange acceptable. Objective Vital Signs Date Time Temp Pulse Resp B/P (MAP) Pulse Ox O2 Delivery O2 Flow Rate FiO2 05/14/17 08:11 40 05/14/17 08:01 100 05/14/17 06:00 93 05/14/17 04:00 98.4 18 126/59 (81) 05/12/17 08:05 Ventilator Intake and Output 05/14/17 05/14/17 05/15/17 08:00 16:00 00:00 Intake Total 1524 ml Output Total 2000 ml Balance -476 ml Result Diagram: 05/13/17 0529 Imaging Last Impressions Head CT 04/27/17 0000 Signed Impressions: Service Date/Time: Thursday, April 27, 2017 11:04 - CONCLUSION: 1. Interval removal of the patient's subdural drain. There is still a small amount of subdural hemorrhage remaining along the left frontal cortex. The remainder of the hemorrhage along the parietal is no longer identified. Findings were discussed in detail above. Luis Morneo MD Chest X-Ray 04/26/17 0400 Signed Impressions: Service Date/Time: Wednesday, April 26, 2017 04:12 - CONCLUSION: No significant interval change. Zeferino Hewitt MD Upper Extremity Ultrasound 04/25/17 0000 Signed Impressions: Service Date/Time: Tuesday, April 25, 2017 11:44 - CONCLUSION: No evidence of right upper extremity DVT. David Meade MD Cervical Spine CT 04/12/17 0000 Signed Impressions: Service Date/Time: Wednesday, April 12, 2017 17:36 - CONCLUSION: Degenerative spondylosis without any significant compromise to the thecal sac or the exiting nerve roots. Maria Guadalupe Alvarado MD Objective Remarks GENERAL: 71-year-old Elderly gentleman. SKIN: Warm and dry. No rash HEAD: Atraumatic. Normocephalic. EYES: Pupils equal and round 2 mm bilaterally and reactive. No scleral icterus. No injection or drainage. ENT: No nasal bleeding or discharge. NECK: Trachea midline. Trach site clean, dry. CARDIOVASCULAR: Regular rate and rhythm. Nl S1, S2. 2/6 systolic murmur right upper sternal border RESPIRATORY: No wheezing rales or rhonchi, good terese air movement. GASTROINTESTINAL: Abdomen soft, non-tender, nondistended, no guarding. BS active. PEG site clean, minimal serous drainage. : Contreras catheter in place MUSCULOSKELETAL: Extremities without clubbing, cyanosis. Right arm with resolving gross edema. NEUROLOGICAL: Moves 4 limbs weakly. Withdraws to pain in all 4 extremities. Opens eyes to stimulation. No tracking Procedures 04/14-left frontoparietal craniotomy with evacuation of subacute on chronic SDH 04/17-@ 0000 emergent craniotomy with evacuation of acute recurrent left subdural hematoma A/P Assessment and Plan NEURO/PSYCH TBI -Subdural hematoma S/P Left frontoparietal craniotomy with evacuation of subacute on chronic SDH S/P Emergency revision/evacuation of acute recurrent left subdural hematoma Acute encephalopathy- resolving slowly Dementia disorder NOS Depression - Neurosurgery following Dr. Odom - Neuro checks per protocol - Repeat CT head per neurosurgery-stable acute subdural hematoma within frontal regions, bilateral 5 mm subfalcine herniation to the right - Seizure prophylaxis with levetiracetam has been discontinued GBG discontinued 04/26 - 04/18 EEG-severe encephalopathy Avoid long-acting sedating meds continue home gabapentin. 400 mg 3 times a day Holding Trazodone 100 mg at night, sertraline 150 mg daily and donepezil 10 mg Acetaminophen 650 mg by NG every 6 hours when necessary fever No more episodic DI for past 8 days. RESP: COPD Acute hypoxic and hypercarbic respiratory failure - resolving. Albuterol/ipratropium aerosols every 6 hours with albuterol aerosols 2 hours. Dyspnea - s/p trach 05/07/17 - Aggressive pulmonary toilet - PRVC vent mode 04/30. SBT as tolerated CV: Severe Hypotension- -resolved. Sinus tachycardia- resolved. Essential hypertension -04/14 EKG prolonged QT 475, continue close monitoring - 04/16 Echo- Normal left ventricular size. Severe concentric left ventricular hypertrophy. EF 50- 55%. Trace aortic valve regurgitation. Severe aortic valve stenosis. Moderate thickening of the aortic valve leaflets. Aortic valve mean gradient is 44 mmHg. - Repeat electrician second QTc-holding benazepril and sertraline and donepezil Continue valsartan 80 mg by mouth daily for hypertension/home medication Metoprolol tartrate twice a day for hypertension GI: Acute protein calorie Malnutrition - severe - Continue tube feeds Glucerna 1.5 with goal 60cc/hr Famotidine 20 mg by 2 twice a day for bowel regimen Docusate sodium/senna 1 tablet twice a day for bowel regimen : Hematuria Maintain Contreras. Dr. Woods has followed Urology recommends replace Contreras catheter with a 18 Czech coud and irrigate when necessary clots (previously with a 14 Czech catheter) Continue tolterodine 4 mg by mouth daily for management of bladder spasms Holding trospium 20 mg twice a day ENDO: Diabetes mellitus - improved control. Central Diabetes Insipidus - Hold metformin 500 mg daily/home medication - Insulin sliding scale NovoLog -high dose dose regimen, 25 units sliding scale past 24 hours Currently on insulin detemir 20 units twice a day - Unable to get clear urine due to bladder bleed. - Responding well to DDAVP, now stopped 04/28. Currently on free water 300mL po q4h - daily bmp to check sodium ID: Septic shock- resolved. Pneumonia - resolved. Bacteremia- resolved. 04/19-blood cultures-staph intermedius 04/14 sets - contaminant 04/20 - Sputum cultures with e. coli, klebsiella. s/p full course of Augie/ tazobactam 04/21 - 04/27. monitor off ABX for fever, signs of infection. HEME: Last CBC 04/25. Leukocytosis. Recheck in a.m. 05/01 FEN: Hypernatremia See above treatment plan Continue free water 300 cc every 4 hours. Replace electrolytes as clinically indicated HD started 05/06, now alternate day HD MSK PT evaluate and treat DVT GI prophylaxis - Teds SCDs - No pharmacological DVT prophylaxis due to subdural hematoma - Pepcid BID Overall impression: Family continues to want aggressive care. Trach, PEG in place. Continues dialysis but urine picking up. Transfer to LTAC today if bed available Roland Figueroa MD May 14, 2017 09:26
[2017-05-14] MEDS: METOPROLOL TARTRATE 25 MG TAB PO SCH (09:51)
[2017-05-14] MEDS: FAMOTIDINE 20 MG TAB NG SCH (09:51)
[2017-05-14] MEDS: GABAPENTIN 300 MG CAP PO SCH (09:51)
[2017-05-14] MEDS: TOLTERODINE TARTRATE 2 MG TAB PO SCH (09:51)
[2017-05-14] MEDS: PRAVASTATIN SOD 40 MG TAB PO SCH (09:51)
[2017-05-14] MEDS: SODIUM CHLORIDE 0.9% FLUSH 10 ML FLUSH IV FLUSH SCH (09:53)
--- NOTE | 2017-05-14 16:14 | HHI.DS ---
Discharge Summary Admission Date Apr 12, 2017 at 18:43 Discharge Date: May 14, 2017 Admitting Diagnosis SUBDURAL HEMATOMAS (MULTIPLE) (1) Acute subdural hematoma ICD Code: I62.01 - Nontraumatic acute subdural hemorrhage Diagnosis: Principal (2) Acute hypoxemic respiratory failure ICD Code: J96.01 - Acute respiratory failure with hypoxia Diagnosis: Principal (3) Encephalopathy ICD Code: G93.40 - Encephalopathy, unspecified Diagnosis: Principal (4) Pneumonia ICD Code: J18.9 - Pneumonia, unspecified organism Diagnosis: Secondary (5) Metabolic acidosis ICD Code: E87.2 - Acidosis Diagnosis: Secondary Status: Acute (6) Aortic stenosis ICD Code: I35.0 - Nonrheumatic aortic (valve) stenosis Diagnosis: Secondary (7) Acute kidney injury ICD Code: N17.9 - Acute kidney failure, unspecified Procedures 04/14-left frontoparietal craniotomy with evacuation of subacute on chronic SDH 04/17-@ 0000 emergent craniotomy with evacuation of acute recurrent left subdural hematoma Brief History 71-year-old male presents for evaluation after he fell hitting his head. Per family report they were in the bathroom trying to change his undergarments when he slipped and fell hitting his head. He is not on anticoagulant. The patient is pleasantly confused and patient's daughter states this is his baseline. He has had no altered mental status since the fall. No vomiting. The patient reports a mild headache without radiation. No neck pain or back pain. He has been ambulatory without difficulty since the fall. The CT head performed in the emergency department shows bilateral subdural hematomas in addition to parafalcine subdural hematoma, left frontal and temporal lobe intraparenchymal hemorrhages and subfalcine herniation from [id number]. CBC/BMP: 05/13/17 0529 Significant Findings Laboratory Tests Test 05/12/17 03:38 05/13/17 05:29 Blood Urea Nitrogen 43 MG/DL (7-18) 62 MG/DL (7-18) Creatinine 3.92 MG/DL (0.60-1.30) 4.96 MG/DL (0.60-1.30) Random Glucose 204 MG/DL (74-106) 203 MG/DL (74-106) Albumin 1.6 GM/DL (3.4-5.0) 1.6 GM/DL (3.4-5.0) Calcium Level 7.8 MG/DL (8.5-10.1) 8.1 MG/DL (8.5-10.1) Estimat Glomerular Filtration Rate 15 ML/MIN (>89) 12 ML/MIN (>89) Potassium Level 5.5 MEQ/L (3.5-5.1) Imaging CT Head CXR PE at Discharge Opens eyes, nods head. Transfer Summary Prolonged course of respiratory failure after traumatic subdural hematoma. Transfer for long-term ventilator weaning at this point. Hospital Course 04/12: 71-year-old male presents for evaluation after he fell hitting his head. Per family report they were in the bathroom trying to change his undergarments when he slipped and fell hitting his head. He is not on anticoagulant. The patient is pleasantly confused and patient's daughter states this is his baseline. He has had no altered mental status since the fall. No vomiting. The patient reports a mild headache without radiation. No neck pain or back pain. He has been ambulatory without difficulty since the fall. The CT head performed in the emergency department shows bilateral subdural hematomas in addition to parafalcine subdural hematoma, left frontal and temporal lobe intraparenchymal hemorrhages and subfalcine herniation from [id number]. 04/13: Resting in bed comfortably at the time of my evaluation this morning. Confused, does not know the year. Knows he is in the hospital. Moves all 4 extremity's. Does not appear to be in any acute distress. 12: Afebrile. The patient continues to be confused but easily following commands notable systolic ejection murmur, echo pending. Patient scheduled for neurosurgical intervention this afternoon. 04/15: Tmax 99.3. The patient status post craniotomy with evacuation of subdural hematoma last evening, remained intubated, only on sedation with propofol infusion and requiring low-dose phenylephrine to maintain map greater than 65. Sedation was briefly lightened last evening postoperatively, and the patient was extremely agitated. IV fluids changed from D5W to normal saline with [address] brain performed. INR pending. 04/16: Tmax 99.8 Patient agitated during the night , swinging his legs out of the bed while on maximum doses of propofol infusion, fentanyl infusion low-dose added this a.m. Patient's diet advance will begin tube feeds this a.m. The patient was noted to have multifocal PVCs intermittent during the night potassium level 3.2 currently being repleted with K-Phos. 04/17: Tmax 101.6. The patient underwent emergent craniotomy for evacuation of acute recurrent left subdural hematoma last evening. The patient continues on 3 % normal saline, with serial sodium and osmole is being followed. Currently weaning slowly sedation for neuro assessment. Patient noted to have a significant elevation in WBC count of 22, blood cultures urine cultures and sputum cultures obtained. Chest x-ray now showing bilateral lung opacities edema versus possible infectious process being ruled out. Echo revealed patient has severe aortic stenosis with a roommate mean gradient of 44. The patient continues on phenylephrine for vasopressors support at this time. 04/18: Last evening, the patient went into A. fib RVR, heart rate low 100s, with self resolution. This a.m. the patient continues to have sinus rhythm/sinus tachycardia 90-105 with frequent multifocal PVCs. Electrolytes within normal limits. Given the significant medical history for severe aortic stenosis metoprolol 2.5 mg IV for rapid heart rate instituted. The patient continues on phenylephrine infusion for maintenance of a map greater than 65. Propofol is currently being weaned off. EEG revealed last night severe encephalopathy. No change in neurological status but patient still is under sedation patient withdraws to pain bilateral lower extremities and now has spontaneous eye opening intermittently. Leukocytosis notably is resolving. 04/19: Afebrile. Today afternoon the patient was noted to have a seizure, Ativan 1 mg IV push with resolution EEG ordered. Post seizure the patient was noted to have gross hematuria. Coag studies performed within normal limits, fibrinogen level slightly elevated . Creatinine kinase noted to be within normal limits. Hematuria thought to possibly be secondary to acquired von Willebrand's factor secondary to the shear stress from his severe aortic stenosis. DDAVP 2 mcgs IV 1 dose ordered this a.m.. Patient continues on 3% sodium chloride, phenylephrine has been discontinued. 04/20: Remains sedated, orally intubated on mechanical ventilation. Remains on 3 % saline. Off phenylephrine currently. Blood pressure labile. Tolerating tube feeds. 04/21: Remains sedated, orally intubated on mechanical ventilation. Stopping 3% saline. Tolerating tube feeds 04/22: Remains sedated, orally intubated on mechanical ventilation. On Levophed for pressor support. Spiking temperatures. Started on Zosyn yesterday. Continues to have hematuria. One unit PRBCs and fluid bolus ordered. 04/23: Appears to have developed ADRIANNE from osmotic diuresis associated with poorly controlled diabetes. Hyperglycemia exacerbated by dextrose containing solution. Will start constant carb feedings with glucerna, reduce levemir, add SSI coverage, and hydrate to correct fluid depletion. 04/24: Continued serum concentration associated with free water loss. No improvement in neurological function. Suspect osmotic diuresis from elevated glucose but will check urine specific gravity to rule out DI. 04/25: Osmolality improving. Continue DDAVP prn. 04/26: Alertness much improved after Na corrected. Required DDAVP X 2. Gas exchange acceptable and he is strong on CPAP trial. Right arm edematous, ultrasound with no thrombus. 04/27: Extubated > 24 hours ago and breathing comfortably. Protects airway. Electrolytes normalized. Transfer. 04/28: Tolerating extubation but respiratory rate increased, not labored. Osmolality normalized off of DDAVP. 04/29: more somnolent today, but still awake and following commands. sodium mp from 143 to 147 off DDAVP. will restart free water. ROS unobtainable due to patient's baseline mental status. 3-way contreras persists, less hematuria noted. Cr continues to improve. remains stable for transfer to floor. SUBJECTIVE: 04/30: Currently in room 1319 . Resting in sitting position bed. Currently resting in bed in no acute distress. Contreras catheter remains. 05/01: > 5 liters urine with rising BUN/Creatinine - appears to have slipped back into DI. 05/02: Daughter request Palliative Care consult to assist with decision making re continued aggressive care, trach. 05/03: Intermittent diabetes insipidus causing big problems for kidneys. Episodic diuresis unpredictable and between bouts he develops pulmonary edema. Remains very weak and unable to tolerate vent weaning trials. 05/04: Patient continues to deteriorate. He will not survive this hospitalization. 05/05: No improvement. Renal function deteriorating. 05/06: Kidneys continue to deteriorate. Family has decided to continue with aggressive care. They want us to proceed with trach, PEG, and dialysis. Terminal disease process. 05/07: Family has elected to continue with aggressive care. Need and risks of tracheostomy insertion have been discussed with the daughter. She accepts risks , including bleeding and . 05/08: Trach, PEG in place. Will work toward LTAC placement. 05/09: Continuing dialysis with no renal recovery. Ventilator dependent. 05/10: Largely unresponsive. Weak on SBTs. Family recognizes that patient appears to be in pain and they have requested continuous iv analgesia. 05/11: Unresponsive., weak, unable to wean ventilator. 05/12: Remains on the vent. Opens eyes to stimulation. Do not follow commands 05/13: Unchanged neuro exam. Moves all extremities spontaneously. Creatinine increased to 5, hemodialysis today. Urine output 2 L 05/14: Spontaneous urine picking up. Gas exchange acceptable. Pt Condition on Discharge: Stable Discharge Disposition: Disch to Another Hospital Roland Figueroa MD May 14, 2017 16:14
--- NOTE | 2017-05-14 17:53 | HHI.NSPN ---
History Chief Complaint: Unable to obtain due to patient's clinical condition. Interval History The patient was examined in the presence of the family today and a more detailed history has been obtained. They indicate chronic progressive dementia to the point that the patient has had to move in with his daughter earlier this year. He cannot care for himself. He is usually quite confused, conversing with only a few words or short sentences and unable to stay on task with conversations. He is usually very active, fidgeting constantly. They state that his mental status today is not significantly changed from his overall baseline. He did go to the emergency room a couple of weeks ago at [facility] due to some pressure sensation or frontal headaches and was diagnosed with sinus congestion. A CT scan of the head was not obtained. He has had no definite falls over the past few weeks up until yesterday. Exam Results Vital Signs Date Time Temp Pulse Resp B/P (MAP) Pulse Ox O2 Delivery O2 Flow Rate FiO2 05/14/17 16:00 40 05/14/17 16:00 101 05/14/17 16:00 99.1 19 152/63 (92) 100 05/12/17 08:05 Ventilator Intake and Output 05/14/17 05/14/17 05/15/17 08:00 16:00 00:00 Intake Total 1524 ml Output Total 2000 ml Balance -476 ml Physical Examination GENERAL: Asleep, eye opening to noxious stimulation to the sternum. No sedation infusing. Trached & on vent. No distress evident. HEENT: Left craniotomy surgical incision well approximated, no evident drainage , erythema or streaking. Pupils 2 mm sluggish bilaterally. MUSCULOSKELETAL: No clubbing or deformity evident. Spontaneous movement of LUE & BLE. NEUROLOGICAL: Asleep but opens eyes to noxious stimulation to the sternum, no sedation. Pupils 2 mm sluggish bilaterally. Nonverbal, trached. Facial grimacing to noxious stimulation. Did not follow commands. Moved LUE=LLE>RLE spontaneously. Also moved to local noxious stimulation. No response with RUE to local noxious stimulation. Medical Decision Making Impression and Plan Impression: 1. Neurologic exam relatively stable over the past couple days. Now on pressors for hypotension. Positive fever over the past couple of days. Remains is relatively high subdural drain output. 04/20/17 CT scan head with partial resolution of the recurrent/residual left frontal subdural hematoma Plan: Neuro exam stable past few days Transfer to [facility] today Discussed with family at bedside Sylvester Odom MD May 14, 2017 17:52
== END 2017-05-14 18:08 | DRG 3 ==
LOC: PHEFT 16:57 → PHEDA 18:43 → N03A 20:10 → N03B 04-29 18:32 → N03A 05-01 04:48
PROVIDERS: ADMIT Internal Medicine; ATTEND Internal Medicine
PROC: 5A1955Z Respiratory Ventilation, Greater than 96 Consecutive Hours (ICD-10-PCS; 2017-04-14)
PROC: 00C40ZZ Extirpation of Matter from Intracranial Subdural Space, Open Approach (ICD-10-PCS; principal; 2017-04-14 17:14)
PROC: 00C40ZZ Extirpation of Matter from Intracranial Subdural Space, Open Approach (ICD-10-PCS; 2017-04-16)
PROC: 05H533Z Insertion of Infusion Device into Right Subclavian Vein, Percutaneous Approach (ICD-10-PCS; 2017-04-19)
PROC: 30233N1 Transfusion of Nonautologous Red Blood Cells into Peripheral Vein, Percutaneous Approach (ICD-10-PCS; 2017-04-22)
PROC: 5A1955Z Respiratory Ventilation, Greater than 96 Consecutive Hours (ICD-10-PCS; 2017-05-01)
PROC: 0BH17EZ Insertion of Endotracheal Airway into Trachea, Via Natural or Artificial Opening (ICD-10-PCS; 2017-05-01)
PROC: 05HM33Z Insertion of Infusion Device into Right Internal Jugular Vein, Percutaneous Approach (ICD-10-PCS; 2017-05-06)
PROC: 5A1D70Z Performance of Urinary Filtration, Intermittent, Less than 6 Hours Per Day (ICD-10-PCS; 2017-05-06)
PROC: 0B113F4 Bypass Trachea to Cutaneous with Tracheostomy Device, Percutaneous Approach (ICD-10-PCS; 2017-05-07)
PROC: 0BD28ZX Extraction of Carina, Via Natural or Artificial Opening Endoscopic, Diagnostic (ICD-10-PCS; 2017-05-07)
PROC: 0DB68ZX Excision of Stomach, Via Natural or Artificial Opening Endoscopic, Diagnostic (ICD-10-PCS; 2017-05-08)
PROC: 0DH63UZ Insertion of Feeding Device into Stomach, Percutaneous Approach (ICD-10-PCS; 2017-05-08)
DX: S06.5X0A Traumatic subdural hemorrhage without loss of consciousness, initial encounter (principal); R65.21 Severe sepsis with septic shock; G93.5 Compression of brain; E43 Unspecified severe protein-calorie malnutrition; G93.40 Encephalopathy, unspecified; A41.9 Sepsis, unspecified organism; J18.9 Pneumonia, unspecified organism; J96.01 Acute respiratory failure with hypoxia; J96.02 Acute respiratory failure with hypercapnia; N17.9 Acute kidney failure, unspecified; E23.2 Diabetes insipidus; Z99.11 Dependence on respirator [ventilator] status; N13.30 Unspecified hydronephrosis; J44.0 Chronic obstructive pulmonary disease with (acute) lower respiratory infection; J81.1 Chronic pulmonary edema; F03.90 Unspecified dementia, unspecified severity, without behavioral disturbance, psychotic disturbance, mood disturbance, and anxiety; I95.9 Hypotension, unspecified; I35.0 Nonrheumatic aortic (valve) stenosis; I10 Essential (primary) hypertension; F29 Unspecified psychosis not due to a substance or known physiological condition; N32.89 Other specified disorders of bladder; R31.0 Gross hematuria; Z79.84 Long term (current) use of oral hypoglycemic drugs; G89.29 Other chronic pain; M54.2 Cervicalgia; M54.9 Dorsalgia, unspecified; F32.9 Major depressive disorder, single episode, unspecified; N32.81 Overactive bladder; M47.9 Spondylosis, unspecified; G62.9 Polyneuropathy, unspecified; H26.9 Unspecified cataract; Z51.5 Encounter for palliative care; R13.10 Dysphagia, unspecified; K29.70 Gastritis, unspecified, without bleeding; E88.09 Other disorders of plasma-protein metabolism, not elsewhere classified; D64.9 Anemia, unspecified; I48.91 Unspecified atrial fibrillation; R00.0 Tachycardia, unspecified; R56.9 Unspecified convulsions; E86.9 Volume depletion, unspecified; I62.03 Nontraumatic chronic subdural hemorrhage; I62.02 Nontraumatic subacute subdural hemorrhage; Z68.26 Body mass index [BMI] 26.0-26.9, adult; E11.65 Type 2 diabetes mellitus with hyperglycemia; K12.1 Other forms of stomatitis; E83.39 Other disorders of phosphorus metabolism; Z87.891 Personal history of nicotine dependence; Z92.3 Personal history of irradiation; Z85.46 Personal history of malignant neoplasm of prostate; Y84.2 Radiological procedure and radiotherapy as the cause of abnormal reaction of the patient, or of later complication, without mention of misadventure at the time of the procedure; W01.0XXA Fall on same level from slipping, tripping and stumbling without subsequent striking against object, initial encounter; Y92.002 Bathroom of unspecified non-institutional (private) residence as the place of occurrence of the external cause
CPT/HCPCS: 31500; 31600; 36430; 36556; 36600; 70450; 71045; 72125; 76775; 76937; 80048; 80053; 80069; 80074; 80076; 81001; 82550; 82805; 82948; 83605; 83690; 83735; 83930; 84100; 84132; 84134; 84155; 84295; 84300; 84439; 84443; 84484; 85014; 85018; 85025; 85027; 85240; 85245; 85246; 85247; 85384; 85610; 85730; 86403; 86850; 86900; 86901; 86920; 87040; 87070; 87077; 87186; 87205; 87493; 87641; 88305; 88312; 90935; 93005; 93306; 93971; 94002; 94003; 94150; 94640; 94664; 94667; 95819; 96374; 96375; 99291; C1713; J0131; J0360; J0610; J0690; J0696; J1580; J1644; J1815; J1940; J1953; J2060; J2250; J2270; J2370; J2405; J2543; J2597; J2997; J3010; J3475; J3480; J7030; J7040; J7050; J7060; J7120; J7613; P9016; P9047